=== PATIENT | male | born 1960 | race Caucasian/White ===

== ENCOUNTER 2022-12-08 09:34 | Outpatient (OUT) | payer OTHER, SELFPAY ==
--- NOTE | 2022-12-08 09:44 | PM.CN ---
Consult Note: HPI Data of Consult Patient: known to practice within the last 3 years Consult date: 12/08/22 Requesting Physician: LAURA LEVIN NP Primary Care Provider: MALGORZATA LITTLEJOHN Consult Narrative Narrative: Patient is here for f/u of low back pain. He had lumbar RFA done 10/25/22 L4/5, L5/S1. He recieved 90% relief of pain with increased fx continued through today . No new sensorimotor sx or bowel or bladder issues. Medication regimen is controlling pain and assisting patient with ability to perform ADLs. LESLIE-26. He does have a flare up of thoracic back pain radiating up to the neck. No radiculopathy. No new ijury. We discussed medrol dose pack for him and he is in agreement. cc:: CC: LAURA LEVIN NP Review of Systems ROS Status of ROS 10 or more systems reviewed and unremarkable except as noted in history and below Musculoskeletal Reports: back pain Exam Constitutional Documenting provider has reviewed patient's vital signs: yes Common normals: no apparent distress, average body habitus, oriented x3, no limitations, healthy appearing, alert and well nourished General appearance: cooperative, comfortable and well developed Orientation/consciousness: Yes awake, Yes oriented to person, Yes oriented to place and Yes oriented to time HENMT Common normals: normocephalic, external ears normal and moist oral mucous membranes Respiratory Common normals: normal respiratory effort, no retractions and no use of accessory muscles Effort & inspection: able to speak in complete sentences and symmetric chest movement Back & Pelvis Thoracic spine/upper back: normal to inspection, thoracic ROM normal, pain with ROM, paraspinal muscle tenderness and paraspinal muscle spasm Lumbar spine/lower back: normal to inspection, ROM limited, pain with ROM, paraspinal muscle tenderness and paraspinal muscle spasm Other: positive facet loading bilat. muscle strength 5/5 bilat with intact sensation Extremity Common normals: normal to inspection, full ROM, normal capillary refill and no pedal edema Assessment and Plan Assessment and Plan (1) Lumbar spondylosis: (2) Muscle spasm: (3) Acute thoracic myofascial strain: Plan medrol dose pack tramadol refill f/u 3 months
== END 2022-12-08 09:35 | disposition home or self-care (01) ==
PROVIDERS: PCP Family Medicine; Visit Provider Nurse Practitioner
DX: M47.816 Spondylosis without myelopathy or radiculopathy, lumbar region (principal); M62.838 Other muscle spasm; S29.012A Strain of muscle and tendon of back wall of thorax, initial encounter
CPT/HCPCS: G0463

== ENCOUNTER 2023-02-08 09:00 | Outpatient (OUT) | payer OTHER, SELFPAY ==
--- NOTE | 2023-02-08 09:06 | PM.CN ---
Consult Note: HPI Data of Consult Patient: known to practice within the last 3 years Requesting Physician: Nikki Hadley NP Primary Care Provider: MALGORZATA LITTLEJOHN Consult Narrative Reason for consult: new onset, 6 weeks, neuritis and increase in pain Narrative: Patient presents with new onset neuritis and pain in the throracic, lumbar, and upper part of lower extremities without inciting incident starting 6 weeks ago and worsening in symptom severity. No recent infections, rashes, medication changes, or travel. Patient denies fatigue, headaches, fevers, chills. Positive for diffuse joint pain affecting shoulders, elbows, knees which is new and worsening in severity, patient reports his knees have been giving out on him. No loss of bowel or bladder. No known tick or bug exposure. no family history of connective tissue disorders. cc:: CC: Nikki Hadley NP Review of Systems ROS Status of ROS 10 or more systems reviewed and unremarkable except as noted in history and below Musculoskeletal Reports: back pain, joint pain and other Neurological Reports: other (new onset numbness to low abdomen up to diaphragm and pelvis to knees. ) Meds Home Medications and Allergies Home Medications Medication Instructions Recorded Confirmed Type amlodipine 10 mg tablet 10 mg PO DAILY 12/08/22 12/08/22 History baclofen 10 mg tablet 10 mg PO TID 12/08/22 12/08/22 History diclofenac sodium 75 mg 75 mg PO BID 12/08/22 12/08/22 History tablet,delayed release gabapentin 100 mg capsule 100 mg PO TID 12/08/22 12/08/22 History lisinopril 20 1 tab PO DAILY 12/08/22 12/08/22 History mg-hydrochlorothiazide 12.5 mg tablet lovastatin 10 mg tablet 10 mg PO DAILY 12/08/22 12/08/22 History metformin 1,000 mg tablet 1,000 mg PO DAILY 12/08/22 12/08/22 History naproxen 500 mg tablet 500 mg PO DAILY PRN pain 12/08/22 12/08/22 History potassium chloride 10 mEq 10 meq PO DAILY 12/08/22 12/08/22 History tablet,extended release (K-Tab) tramadol 50 mg tablet 50 mg PO TID 12/08/22 12/08/22 History Allergies Allergy/AdvReac Type Severity Reaction Status Date / Time No Known Drug Allergies Allergy Verified 12/08/22 10:30 Exam Constitutional Documenting provider has reviewed patient's vital signs: yes Common normals: no apparent distress, oriented x3, healthy appearing, alert and well nourished General appearance: cooperative Nutritional appearance: overweight HENMT Common normals: normocephalic, hearing grossly normal bilaterally and moist oral mucous membranes Head and scalp: normocephalic Eye Common normals: PERRL Pupil: PERRL Neck & C-Spine Common normals: full ROM General: normal visual inspection Lymph Lymphatic: no lymphadenopathy noted Chest Common normals: inspection of chest normal Respiratory Common normals: normal respiratory effort, no retractions and no use of accessory muscles Back & Pelvis Common normals: no CVA tenderness Thoracic spine/upper back: normal to inspection and thoracic ROM normal Lumbar spine/lower back: normal to inspection, lumbar ROM normal and straight leg raise negative bilaterally Pelvis: buttocks normal Sacroiliac joints: SI joints normal Other: please see paper chart for diagram of numbness and pain as reported by patient Extremity Common normals: normal to inspection, full ROM and no joint enlargement Extremity image (front): 1. numbness anteriorly and posteriorly 2. numbness anteriorly and posteriorly 3. pain Neuro Common normals: oriented x3, CN's II-XII intact bilaterally, moves all extremities, no focal motor deficits, no sensory deficits noted and deep tendon reflexes 2+ bilaterally Sensorium/orientation: alert Speech: speech normal Gait (neuro): normal gait Motor exam: strength 5/5 throughout and no movement abnormalities noted Other: new onset, 6 weeks ago, of neuritis and nerve pain to low abdomen radiating up to diaphragm and pelvis down to bilateral knees. continued chronic low back pain increasing in intensity since the development of neuritis. Psych Common normals: mental status grossly normal, thought process normal, cooperative, affect normal, speech normal and activity/motor behavior normal Speech: normal speech Thought process: normal thought process Assessment and Plan Assessment and Plan (1) Joint pain: (2) Neuritis: (3) Thoracic and lumbosacral neuritis: (4) Muscle spasm: (5) Lumbar spondylosis: (6) Chronic, continuous use of opioids: Plan Patient presents with new onset neuritis and pain in the throracic, lumbar, and upper part of lower extremities without inciting incident starting 6 weeks ago and worsening in symptom severity. No recent infections, rashes, medication changes, or travel. Patient denies fevers, chills. Positive for diffuse joint pain affecting shoulders, elbows, knees which is new and worsening in severity, patient reports his knees have been giving out on him. No loss of bowel or bladder. No known tick or bug exposure. no family history of connective tissue disorders. Will update MRI of thoracic and lumbar spine to evaluate nerve pain and weakness, xrays updated in september. Will order CBC, CRP, and workup for tick exposure/lyme disease. Continue gabapentin 300mg daily continue baclofen 10mg hs continue tramadol 50mg TID MRI of thoracic and lumbar spine f/u after labs and imaging obtained
== END 2023-02-08 09:01 | disposition home or self-care (01) ==
LOC: PM 09:01
PROVIDERS: PCP Family Medicine; Visit Provider Nurse Practitioner
DX: M54.14 Radiculopathy, thoracic region (principal); M54.16 Radiculopathy, lumbar region; M25.50 Pain in unspecified joint; M62.838 Other muscle spasm; M47.816 Spondylosis without myelopathy or radiculopathy, lumbar region; Z79.899 Other long term (current) drug therapy; M54.17 Radiculopathy, lumbosacral region
CPT/HCPCS: 36415; 85025; 86140; 86618; G0463

== ENCOUNTER 2023-02-08 09:59 | Outpatient (OUT) | payer OTHER, MEDICARE, SELFPAY ==
[2023-02-08 10:58] LABS: Basophils Absolute Auto 0.1 10^3/uL (0.0-0.1); Eosinophils Absolute Auto 0.2 10^3/uL (0.0-0.7); Eosinophils Percent Auto 2.9 % (0.9-7.0); Hematocrit 46.9 % (42.0-54.0); Hemoglobin 16.1 g/dL (14.0-18.0); Immature Granulocytes Abs Auto 0.02 10^3/uL (0.00-0.03); Immature Granulocytes Pct Auto 0.4 % (0.0-0.5); Lymphocytes Absolute Auto 2.2 10^3/uL (1.2-3.8); Lymphocytes Percent Auto 40.4 % (20.5-60.0); Mean Corpuscular HGB Conc 34.3 g/dL (29.9-35.2); Mean Corpuscular Hemoglobin 31.4 pg (25.9-34.0); Mean Corpuscular Volume 91.6 fL (80.0-94.0); Mean Platelet Volume 11.3 fL (9.5-13.5); Monocytes Absolute Auto 0.4 10^3/uL (0.3-0.8); Monocytes Percent Auto 7.9 % (1.7-12.0); Neutrophils Absolute Auto 2.5 10^3/uL (1.4-6.5); Neutrophils Percent Auto 46.4 % (43.0-75.0); Platelet Count 238 10^3/uL (150-450); Red Blood Count 5.12 10^6/uL (4.70-6.10); Red Cell Distribution Width 12.3 % (11.0-15.0); White Blood Count 5.5 10^3/uL (4.0-11.0)
[2023-02-08 12:37] LABS: C Reactive Protein <0.2 mg/dL (<=1.0)
[2023-02-09 10:09] LABS: Lyme Total Antibody CIA Negative (Negative)
== END 2023-02-08 10:00 | disposition home or self-care (01) ==
PROVIDERS: PCP Family Medicine; Visit Provider Nurse Practitioner
DX: M54.14 Radiculopathy, thoracic region (principal); M54.16 Radiculopathy, lumbar region
CPT/HCPCS: 36415; 85025; 86140

== ENCOUNTER 2023-03-07 08:17 | Outpatient (OUT) | payer OTHER, SELFPAY ==
--- NOTE | 2023-03-07 08:28 | MR_ITS ---
[place] [id number] Patient Name: KEDAR OCASIO MRN: [id number] date: 1960 Sex: M Assigned Patient Location: MRI Current Patient Location: MRI Accession/Order Number: [id number] Exam Date: 03/07/2023 08:38 Report Date: 03/07/2023 15:31 At the request of: ZBIGNIEW BEGUM Procedure: MR lumbar spine wo con TITLE: MR lumbar spine wo con COMPARISON: 2019 lumbar spine MRI CLINICAL HISTORY: Lumbar Neuritis. Mid to lower back pain radiating to the lower extremity. Weakness TECHNIQUE: Sagittal T1, sagittal T2 FSE, sagittal STIR, and axial T2 FSE. FINDINGS: Alignment is normal. There is no listhesis nor vertebral body height loss. The conus medullaris terminates at L1-2 and appears normal. There is mild diffuse narrowing of the central canal suggesting developmental central stenosis. Type II Modic endplate marrow changes L2-3 and L4-5. Multilevel disc space narrowing and disc desiccation The visualized adjacent soft tissues appear unremarkable.. T11-T12: Mild disc bulges Schmorl's nodes. No significant stenosis. T12-L1: Mild disc bulge. No significant stenosis. L1-L2:Mild disc bulge. No significant stenosis. L2-3: Diffuse disc bulge with foraminal extension. Mild central canal and foraminal stenoses L3-4: Diffuse disc bulge. Left paracentral and foraminal disc protrusion. There is 7 mm extruded disc fragment in the left lateral recess. Reference sagittal image 8 and axial image 22 series 8001 moderate to severe central canal and left lateral recess stenosis. Severe left-sided foraminal narrowing Bilateral facet hypertrophy L4-5: Diffuse disc bulge with lateral osteophyte and disc formation. Bilateral facet hypertrophy. Moderate to severe central canal and moderate right greater than left foraminal narrowing L5-S1: Mild disc bulge and facet hypertrophy. Mild to moderate foraminal narrowing MR/MR lumbar spine wo con IMPRESSION: MODERATE MULTILEVEL DEGENERATIVE CHANGES OF THE LUMBAR SPINE. INTERVAL PROGRESSION FROM 2019 MILD DIFFUSE NARROWING OF CENTRAL CANAL SUGGESTING UNDERLYING DEVELOPMENTAL CENTRAL STENOSIS. MULTILEVEL DISC DESICCATION, DISC SPACE NARROWING, AND DISC BULGES. L3-4: LEFT PARACENTRAL AND FORAMINAL DISC PROTRUSIONS. EXTRUDED DISC FRAGMENT EXTENDING IN THE LEFT LATERAL RECESS. MODERATE TO SEVERE MULTIFACTORIAL CENTRAL STENOSIS L4-5 Electronically authenticated by: LOYDA FELIZ Date: 03/07/2023 15:31
--- NOTE | 2023-03-07 08:28 | MR_ITS ---
[facility] [place] [id number] Patient Name: KEDAR OCASIO MRN: [id number] date: 1960 Sex: M Assigned Patient Location: MRI Current Patient Location: MRI Accession/Order Number: [id number] Exam Date: 03/07/2023 08:39 Report Date: 03/07/2023 15:38 At the request of: ZBIGNIEW BEGUM Procedure: MR thoracic spine wo con MRI THORACIC SPINE WITHOUT CONTRAST, 03/07/2023. HISTORY: Back pain. Thoracic neuritis. Weakness. COMPARISON: None. TECHNIQUE: Multiplanar, multisequence MRI imaging of the thoracic spine without contrast. FINDINGS: Alignment is normal. No acute compression fracture of the thoracic spine. Signal in the bone marrow spaces is appropriate. No bone marrow edema. No suspicious osseous lesions. The C7-T1 level is partially included on the [id number]. There is a large disc extrusion migrating above the level of the disc space. The disc extrusion measures 8 mm in AP dimension and 12 mm in craniocaudal dimension. This results in severe spinal canal stenosis at the C7 level with severe compression of the spinal cord. Multilevel degenerative disc disease throughout the thoracic spine. Degenerative disc disease is most severe at T6-T7 with severe disc space narrowing. There are small central protrusions at T5-T6 and T6-T7. There is facet hypertrophy and ligamentum flavum thickening at T7-T8. There is disc bulge at T9-T10 and T11-T12. These findings result in mild spinal stenosis at these levels. There is severe facet arthropathy on the right at T9-T10 with mild right foraminal narrowing as a result of facet hypertrophy. No spinal cord compression in the thoracic spinal canal. No paraspinal soft tissue swelling. No paraspinal mass. MR/MR thoracic spine wo con IMPRESSION: 1. The C7-T1 level is partially included on the [id number]. There is a large central disc extrusion migrating above the level of the disc space. The disc extrusion results in severe spinal canal stenosis with severe compression of the spinal cord at the C7 level. The spinal canal measures only approximately 2 mm in AP dimension at this level. 2. Multilevel degenerative disc disease throughout the thoracic spine. There are a few small disc protrusions and disc bulge as well as facet hypertrophy resulting in mild spinal stenosis at a few thoracic levels. No compression of the thoracic spinal cord. 3. Severe facet arthropathy on the right at T9-T10 with mild right foraminal narrowing. Electronically authenticated by: MALGORZATA CHAN Date: 03/07/2023 15:38
== END 2023-03-07 08:18 | disposition home or self-care (01) ==
LOC: MRI 08:18
PROVIDERS: PCP Family Medicine; Visit Provider Nurse Practitioner
DX: M54.14 Radiculopathy, thoracic region (principal); M54.16 Radiculopathy, lumbar region
CPT/HCPCS: 72146; 72148

== ENCOUNTER 2023-03-09 09:00 | Outpatient (OUT) | payer OTHER, SELFPAY ==
--- NOTE | 2023-03-09 09:19 | P.CN_ITS ---
Consult Note: HPI Data of Consult Patient: known to practice within the last 3 years Requesting Physician: Nikki Hadley NP Primary Care Provider: MALGORZATA LITTLEJOHN Consult Narrative Reason for consult: MRI review Narrative: Beau Lozano a pleasant 63 year old male presents for evaluation of chronic low back pain with radiculopathy and lumbar neuritis. MRI recently completed which revealed moderate multilevel degenerative changes as well as mild diffuse narrowing of central canal and stenosis at L3-4, moderate to severe central canal stenosis at L4-5. Patient has 2/10 pain today, worst at 10/10. Pain increased with standing and walking, stairs, bending, activity, ADLs, and sleep. Pain improved with sitting. Patient continues to notice decrease in functional ability as a result of his pain. Pain is mild to moderately controlled with tramadol, gabapentin, and baclofen. He has not tried topical creams or heat/ice. cc:: CC: Nikki Hadley NP Review of Systems ROS Status of ROS 10 or more systems reviewed and unremarkable except as noted in history and below Musculoskeletal Reports: back pain, neck pain and joint pain Meds Home Medications and Allergies Home Medications Medication Instructions Recorded Confirmed Type amlodipine 10 mg tablet 10 mg PO DAILY 12/08/22 12/08/22 History baclofen 10 mg tablet 10 mg PO TID 12/08/22 12/08/22 History diclofenac sodium 75 mg 75 mg PO BID 12/08/22 12/08/22 History tablet,delayed release gabapentin 100 mg capsule 100 mg PO TID 12/08/22 12/08/22 History lisinopril 20 1 tab PO DAILY 12/08/22 12/08/22 History mg-hydrochlorothiazide 12.5 mg tablet lovastatin 10 mg tablet 10 mg PO DAILY 12/08/22 12/08/22 History metformin 1,000 mg tablet 1,000 mg PO DAILY 12/08/22 12/08/22 History potassium chloride 10 mEq 10 meq PO DAILY 12/08/22 12/08/22 History tablet,extended release (K-Tab) tramadol 50 mg tablet 50 mg PO TID 12/08/22 12/08/22 History baclofen 10 mg tablet 10 mg PO .HS #30 tabs 03/09/23 Rx diclofenac sodium 75 mg 75 mg PO BID PRN pain #60 tabs 03/09/23 Rx tablet,delayed release tramadol 50 mg tablet 50 mg PO TID PRN pain #90 tabs 03/09/23 Rx Allergies Allergy/AdvReac Type Severity Reaction Status Date / Time No Known Drug Allergies Allergy Verified 12/08/22 10:30 Exam Constitutional Documenting provider has reviewed patient's vital signs: yes Common normals: no apparent distress, oriented x3, healthy appearing, alert and well nourished General appearance: cooperative HENMT Common normals: normocephalic, hearing grossly normal bilaterally and moist oral mucous membranes Head and scalp: normocephalic Eye Common normals: PERRL Pupil: PERRL Neck & C-Spine Common normals: full ROM General: normal visual inspection Chest Common normals: inspection of chest normal Respiratory Common normals: normal respiratory effort, no retractions and no use of accessory muscles Back & Pelvis Thoracic spine/upper back: ROM limited and pain with ROM Lumbar spine/lower back: ROM limited, pain with ROM and straight leg raise negative bilaterally Other: diffuse tightness to low back and muscle spasming. Trigger points to lumbar spine identified. radicular pain to bilateral lower extremities. Back image (male): 1. TPI 2. TPI 3. TPI Extremity Common normals: normal to inspection and full ROM Neuro Common normals: oriented x3, CN's II-XII intact bilaterally, moves all extremities, no focal motor deficits, no sensory deficits noted and deep tendon reflexes 2+ bilaterally Sensorium/orientation: alert Gait (neuro): antalgic Motor exam: strength 5/5 throughout (4/5 BLE at times) and no movement abnormalities noted Other: multilevel thoracic and lumbar neuritis/nerve pain to low abdomen radiating up to diaphragm and pelvis down to bilateral knees. continued chronic low back pain increasing in intensity since the development of neuritis. Psych Common normals: mental status grossly normal, thought process normal, cooperative, affect normal, speech normal and activity/motor behavior normal Speech: normal speech Thought process: normal thought process Results Additional Findings Additional findings: MRI reviewed with patient I have reviewed the imaging of the MRI and no red flags were identified.? The imaging reveals radiographic findings consistent with lumbar radiculopathy. The Oswestry Disability Index was completed, and the patient scored a 60%, with severe pain, pain with ADLs, cannot lift or carry anything, pain prevents him from walking more than 100 yards, pain prevents him from sitting more than 30 minutes, pain prevents him from standing more than 10 minutes, pain is interf ering with sleep, social life, sex life, and travel. We discussed the risks and benefits of the procedure with the patient, and we are NOT planning on using sedation as outlined in the guidelines from Medicare unless there is a documented reason that sedation would be strongly recommended.?? ?The procedure will be completed with fluoroscopic guidance.? Assessment and Plan Assessment and Plan (1) Neuritis: (2) Thoracic and lumbosacral neuritis: (3) Myofascial pain syndrome of lumbar spine: Assessment and Plan: consent obtained. procedure and risks vs benefits reviewed with patient. Trigger point injections x3, 2 at lower left back and one at right lower back see exam a beatrice. injection was performed after informed consent obtained, patient identified by name and birthday and location confirmed. Hands washed and gloves applied. Site cleansed with alcohol wipes for 1 minute and air dried. Sites CDI and bandaids applied. moderate relief to lumbar myofascial pain immediately following TPIs (4) Chronic, continuous use of opioids: (5) Muscle spasm: Plan no fevers chills, continue to monitor. previous blood work was unremarkable. Was concerned with previous joint pain, has dissipated continue diclofenac 75mg BID continue tramadol 50mg TID PRN moderate to severe pain continue baclofen 10mg PRN utilize heat and ice for myofascial pain increase gabapentin to 300mg BID plan for bilateral L3-4 TFESI under fluoroscopy followed by bilateral L4-5 TFESI under fluoroscopy based on patients imaging, physical exam, and functional ability unable to tolerate PT it is crucial to perform these procedures to decrease pain and increase functional ability f/u after injections
== END 2023-03-09 09:01 | disposition home or self-care (01) ==
LOC: PM 09:00
PROVIDERS: PCP Family Medicine; Visit Provider Nurse Practitioner
DX: M54.14 Radiculopathy, thoracic region (principal); M54.16 Radiculopathy, lumbar region; M79.18 Myalgia, other site; Z79.899 Other long term (current) drug therapy; M62.838 Other muscle spasm
CPT/HCPCS: 20552

== ENCOUNTER 2023-03-20 09:23 | Day surgery (SDC) | payer OTHER, SELFPAY ==
[2023-03-20 09:58] VITALS: BP 151/85; PULSE 71; RESP 16; TEMP 36.9; O2SAT 97
[2023-03-20 10:34] LABS: Glucometer 231 mg/dL (74-106)
[2023-03-20 10:53] VITALS: BP 134/72; PULSE 78; RESP 18; O2SAT 97
[2023-03-20] MEDS: BUPIVACAINE HCL 0.25% PF 25 MG/10 ML VIAL 4 ML INJ (10:55)
[2023-03-20] MEDS: IOHEXOL 240 MG/ML - 10 ML VIAL INJ (10:56)
[2023-03-20] MEDS: LIDOCAINE HCL 2% PF 100 MG/5 ML VIAL 3 ML INJ (10:56)
[2023-03-20] MEDS: TRIAMCINOLONE ACETONIDE 40 MG/ML VIAL 80 MG INJ (10:56)
--- NOTE | 2023-03-20 10:57 | W.PM.PROCNOT ---
Date of procedure: 03/20/23 Pre-op diagnosis: Lumbar stenosis with neurogenic claudication Post-op diagnosis: same as pre-op Procedure: Procedure: Bilateral L3-4 transforaminal epidural steroid injection Medication: Bupivacaine 0.25% 2cc, kenalog 80mg The patient was seen and examined in the preoperative holding area.? Informed consent was obtained and placed on the chart.? Patient was brought to the medical procedure unit and placed in the prone position where a timeout was completed verifying the correct patient, procedure site, position, and planned special equipment using sterile aseptic technique.? Under direct fluoroscopic visualization a 25-gauge Quincke tipped spinal needle was advanced at level left L3-4 to the designated neural foramen where contrast dye was injected to show adequate spread.? There was no evidence of vascular or adverse uptake.? Epidural spread was appreciated.? The above-mentioned injectate was then placed in a 1.5 mL aliquot preceded by negative aspiration.? The needle was removed. The same procedure, at the same level, was completed on the opposite side. ? Patient was taken to the postprocedural recovery area and monitored for an appropriate length of time before found suitable for discharge in the accompaniment of a responsible adult. Anesthesia: Local Surgeon: Macey Monterroso Pathology: none sent Condition: stable Disposition: no change
[2023-03-20 10:58] VITALS: BP 139/72; PULSE 84; RESP 16; O2SAT 98
== END 2023-03-20 11:01 | disposition home or self-care (01) ==
PROVIDERS: PCP Family Medicine; Visit Provider Anesthesiology
DX: M48.062 Spinal stenosis, lumbar region with neurogenic claudication (principal); Z79.84 Long term (current) use of oral hypoglycemic drugs
CPT/HCPCS: 36415; 36416; 64483; 82948; Q9966

== ENCOUNTER 2023-04-03 08:12 | Day surgery (SDC) | payer OTHER, SELFPAY ==
[2023-04-03 08:18] VITALS: BP 140/83; PULSE 98; RESP 16; TEMP 36.2; O2SAT 95
[2023-04-03 08:25] LABS: Glucometer 174 mg/dL (74-106)
[2023-04-03] MEDS: BUPIVACAINE HCL 0.25% PF 25 MG/10 ML VIAL 2 ML INJ (09:09)
[2023-04-03] MEDS: TRIAMCINOLONE ACETONIDE 40 MG/ML VIAL 80 MG INJ (09:10)
[2023-04-03] MEDS: IOHEXOL 240 MG/ML - 10 ML VIAL INJ (09:10)
[2023-04-03] MEDS: LIDOCAINE HCL 2% PF 100 MG/5 ML VIAL 3 ML INJ (09:10)
[2023-04-03 09:11] VITALS: BP 119/76; BP 128/66; PULSE 90; PULSE 91; RESP 18; O2SAT 96
--- NOTE | 2023-04-03 09:13 | W.PM.PROCNOT ---
Date of procedure: 04/03/23 Pre-op diagnosis: Lumbar stenosis with neurogenic claudication Post-op diagnosis: same as pre-op Procedure: Procedure: Bilateral L4-5 transforaminal epidural steroid injection Medications: Bupivacaine 0.25% 2cc, kenalog 80mg The patient was seen and examined in the preoperative holding area.? Informed consent was obtained and placed on the chart.? Patient was brought to the medical procedure unit and placed in the prone position where a timeout was completed verifying the correct patient, procedure site, position, and planned special equipment using sterile aseptic technique.? Under direct fluoroscopic visualization a 25-gauge Quincke tipped spinal needle was advanced at level left L4-5 to the designated neural foramen where contrast dye was injected to show adequate spread.? There was no evidence of vascular or adverse uptake.? Epidural spread was appreciated.? The above-mentioned injectate was then placed in a 1.5 mL aliquot preceded by negative aspiration.? The needle was removed. The same procedure, at the same level, was completed on the opposite side. ? Patient was taken to the postprocedural recovery area and monitored for an appropriate length of time before found suitable for discharge in the accompaniment of a responsible adult. Anesthesia: Local Surgeon: Macey Monterroso Pathology: none sent Condition: stable Disposition: no change
== END 2023-04-03 09:16 | disposition home or self-care (01) ==
PROVIDERS: PCP Family Medicine; Visit Provider Anesthesiology
DX: M48.062 Spinal stenosis, lumbar region with neurogenic claudication (principal)
CPT/HCPCS: 36415; 36416; 64483; 82948; Q9966

== ENCOUNTER 2023-04-26 08:05 | Outpatient (OUT) | payer OTHER, SELFPAY ==
--- NOTE | 2023-04-26 08:52 | P.CN_ITS ---
Consult Note: HPI Data of Consult Patient: known to practice within the last 3 years Requesting Physician: Nikki Hadley NP Primary Care Provider: MALGORZATA LITTLEJOHN Consult Narrative Reason for consult: f/u Narrative: Beau Lozano a pleasant 63 year old male presents for evaluation and management of chronic low back pain and radiculopathy. Today rating pain 4/10 in upper back and low back. Reporting only 25% relief from recent TFESIs. Patient has a NS consult this month with a physician in [place] to discuss pain unresponsive to injection therapy and medication therapy. Patient continues to have numbness, tingling, and weakness in legs. cc:: CC: Nikki Hadley NP Review of Systems ROS Status of ROS 10 or more systems reviewed and unremarkable except as noted in history and below Musculoskeletal Reports: back pain PFSH PFSH Medical History Diabetes ?E11.9 - Type 2 diabetes mellitus without complications (ICD-10) High cholesterol ?E78.00 - Pure hypercholesterolemia, unspecified (ICD-10) HTN (hypertension) ?I10 - Essential (primary) hypertension (ICD-10) Osteoarthritis ?M19.90 - Unspecified osteoarthritis, unspecified site (ICD-10) Surgical History History of arthroscopy of knee ?Z98.890 - Other specified postprocedural states (ICD-10) History of hernia repair ?Z98.890 - Other specified postprocedural states (ICD-10) ?Z87.19 - Personal history of other diseases of the digestive system (ICD-10) History of knee replacement ?Z96.659 - Presence of unspecified artificial knee joint (ICD-10) Meds Home Medications and Allergies Home Medications Medication Instructions Recorded Confirmed Type amlodipine 10 mg tablet 10 mg PO DAILY 12/08/22 04/03/23 History baclofen 10 mg tablet 10 mg PO TID 12/08/22 04/03/23 History diclofenac sodium 75 mg 75 mg PO BID 12/08/22 04/03/23 History tablet,delayed release gabapentin 100 mg capsule 100 mg PO TID 12/08/22 04/03/23 History lisinopril 20 1 tab PO DAILY 12/08/22 04/03/23 History mg-hydrochlorothiazide 12.5 mg tablet lovastatin 10 mg tablet 10 mg PO DAILY 12/08/22 04/03/23 History metformin 1,000 mg tablet 1,000 mg PO DAILY 12/08/22 04/03/23 History potassium chloride 10 mEq 10 meq PO DAILY 12/08/22 04/03/23 History tablet,extended release (K-Tab) tramadol 50 mg tablet 50 mg PO TID 12/08/22 04/03/23 History baclofen 10 mg tablet 10 mg PO .HS #30 tabs 03/09/23 03/20/23 Rx diclofenac sodium 75 mg 75 mg PO BID PRN pain #60 tabs 03/09/23 03/20/23 Rx tablet,delayed release tramadol 50 mg tablet 50 mg PO TID PRN pain #90 tabs 03/09/23 03/20/23 Rx tramadol 50 mg tablet 50 mg PO TID PRN pain #90 tabs 04/12/23 Rx Allergies Allergy/AdvReac Type Severity Reaction Status Date / Time No Known Drug Allergies Allergy Verified 04/03/23 08:24 Exam Constitutional Documenting provider has reviewed patient's vital signs: yes Common normals: no apparent distress, oriented x3, healthy appearing, alert and well nourished General appearance: cooperative [facility] Common normals: normocephalic, hearing grossly normal bilaterally and moist oral mucous membranes Head and scalp: normocephalic Eye Common normals: PERRL Pupil: PERRL Neck & C-Spine Common normals: full ROM General: normal visual inspection Chest Common normals: inspection of chest normal Respiratory Common normals: normal respiratory effort, no retractions and no use of accessory muscles Back & Pelvis Thoracic spine/upper back: ROM limited and pain with ROM Lumbar spine/lower back: ROM limited, pain with ROM and straight leg raise positive left Sacroiliac joints: SI joints normal Other: strength 4/5 in BLE Extremity Common normals: normal to inspection and full ROM Neuro Common normals: oriented x3, CN's II-XII intact bilaterally, moves all extremities, no focal motor deficits, no sensory deficits noted and deep tendon reflexes 2+ bilaterally Sensorium/orientation: alert Gait (neuro): antalgic Motor exam: no movement abnormalities noted and strength abnormal Psych Common normals: mental status grossly normal, thought process normal, cooperative, affect normal, speech normal and activity/motor behavior normal Speech: normal speech Thought process: normal thought process Results Additional Findings Additional findings: LESLIE 52% Assessment and Plan Assessment and Plan (1) Chronic, continuous use of opioids: (2) Myofascial pain syndrome of lumbar spine: (3) Lumbar stenosis with neurogenic claudication: (4) Neuropathy: Plan increase gabapentin to 300mg TID stop baclofen, start skalxin 500mg 1-2 tabs BID PRN muscle spasms continue tramadol 50mg TID PRN continue diclofenac 75mg BID PRN continue HEP as tolerated f/u with neurosurgery in [place] as scheduled, unsure of providers name f/u 6 weeks
== END 2023-04-26 08:06 | disposition home or self-care (01) ==
LOC: PM 08:05
PROVIDERS: PCP Family Medicine; Visit Provider Nurse Practitioner
DX: M48.062 Spinal stenosis, lumbar region with neurogenic claudication (principal); Z79.891 Long term (current) use of opiate analgesic; G62.9 Polyneuropathy, unspecified; M79.18 Myalgia, other site
CPT/HCPCS: G0463

== ENCOUNTER 2023-06-15 13:13 | Outpatient (OUT) | payer OTHER, SELFPAY ==
--- NOTE | 2023-06-15 14:13 | P.CN_ITS ---
Consult Note: HPI Data of Consult Patient: known to practice within the last 3 years Requesting Physician: Nikki Hadley NP Primary Care Provider: MALGORZATA LITTLEJOHN Consult Narrative Reason for consult: f/u Narrative: Beau Lozano a pleasant 63 year old male presents for evaluation and management of chronic low back pain and radiculopathy. Today rating pain 5/10 in low back and bilateral buttocks/legs, also reporting cervical/thoracic pain. Patient following with neurosurgery who is planning C2-T2 decompression with posterior fusion. Patient is now utilizing a walker to assist with ambulation. Finding benefit from tramadol 50-100mg TID PRN and gabapentin 600mg QID. cc:: CC: Nikki Hadley NP Review of Systems ROS Status of ROS 10 or more systems reviewed and unremark able except as noted in history and below Musculoskeletal Reports: back pain and neck pain PFSH PFSH Medical History Osteoarthritis ?M19.90 - Unspecified osteoarthritis, unspecified site (ICD-10) Diabetes ?E11.9 - Type 2 diabetes mellitus without complications (ICD-10) HTN (hypertension) ?I10 - Essential (primary) hypertension (ICD-10) High cholesterol ?E78.00 - Pure hypercholesterolemia, unspecified (ICD-10) Surgical History History of arthroscopy of knee ?Z98.890 - Other specified postprocedural states (ICD-10) History of knee replacement ?Z96.659 - Presence of unspecified artificial knee joint (ICD-10) History of hernia repair ?Z98.890 - Other specified postprocedural states (ICD-10) ?Z87.19 - Personal history of other diseases of the digestive system (ICD-10) Meds Home Medications and Allergies Home Medications Medication Instructions Recorded Confirmed Type amlodipine 10 mg tablet 10 mg PO DAILY 12/08/22 04/03/23 History diclofenac sodium 75 mg 75 mg PO BID 12/08/22 04/03/23 History tablet,delayed release gabapentin 100 mg capsule 300 mg PO TID 12/08/22 04/26/23 History lisinopril 20 1 tab PO DAILY 12/08/22 04/03/23 History mg-hydrochlorothiazide 12.5 mg tablet lovastatin 10 mg tablet 10 mg PO DAILY 12/08/22 04/03/23 History metformin 1,000 mg tablet 1,000 mg PO DAILY 12/08/22 04/03/23 History potassium chloride 10 mEq 10 meq PO DAILY 12/08/22 04/03/23 History tablet,extended release (K-Tab) tramadol 50 mg tablet 50 mg PO TID 12/08/22 04/03/23 History diclofenac sodium 75 mg 75 mg PO BID PRN pain #60 tabs 03/09/23 03/20/23 Rx tablet,delayed release tramadol 50 mg tablet 50 mg PO TID PRN pain #90 tabs 03/09/23 03/20/23 Rx tramadol 50 mg tablet 50 mg PO TID PRN pain #90 tabs 04/12/23 Rx methocarbamol 500 mg tablet 500 mg PO TID 04/26/23 04/26/23 History tramadol 50 mg tablet 50 mg PO TID PRN pain #90 tabs 05/11/23 Rx diclofenac sodium 75 mg 75 mg PO BID #60 tabs 06/07/23 Rx tablet,delayed release tramadol 50 mg tablet 50 mg PO TID PRN pain #180 tabs 06/07/23 Rx Allergies Allergy/AdvReac Type Severity Reaction Status Date / Time No Known Drug Allergies Allergy Verified 04/03/23 08:24 Exam Constitutional Documenting provider has reviewed patient's vital signs: yes Common normals: no apparent distress, oriented x3, healthy appearing, alert and well nourished General appearance: cooperative [facility] Common normals: normocephalic, hearing grossly normal bilaterally and moist oral mucous membranes Head and scalp: normocephalic Eye Common normals: PERRL Pupil: PERRL Neck & C-Spine Common normals: full ROM General: normal visual inspection Chest Common normals: inspection of chest normal Respiratory Common normals: normal respiratory effort, no retractions and no use of acc essory muscles Back & Pelvis Thoracic spine/upper back: ROM limited and pain with ROM Lumbar spine/lower back: ROM limited, pain with ROM, straight leg raise positive right and straight leg raise positive left Sacroiliac joints: SI joints normal Other: strength 4/5 in BLE Extremity Common normals: normal to inspection and full ROM Neuro Common normals: oriented x3, CN's II-XII intact bilaterally, moves all extremities, no focal motor deficits, no sensory deficits noted and deep tendon reflexes 2+ bilaterally Sensorium/orientation: alert Gait (neuro): antalgic Motor exam: no movement abnormalities noted and strength abnormal (4/5 BLE) Psych Common normals: mental status grossly normal, thought process normal, cooperative, affect normal, speech normal and activity/motor behavior normal Speech: normal speech Thought process: normal thought process Assessment and Plan Assessment and Plan (1) Lumbar stenosis with neurogenic claudication: (2) Myofascial pain syndrome of lumbar spine: (3) Chronic, continuous use of opioids: (4) Muscle spasm: (5) Lumbar spondylosis: (6) Cervical spinal stenosis: Plan tramadol 50-100mg TID PRN moderate to severe pain gabapentin 600mg QID skelaxin 800mg TID PRN discussed NS managing post op pain medications, patient and verbalized understanding continue diclofenac 75mg BID PRN will hold prior to and post op per surgeons recommendation f/u 3 months, sooner if needed
== END 2023-06-15 13:14 | disposition home or self-care (01) ==
LOC: PM 13:25
PROVIDERS: PCP Family Medicine; Visit Provider Nurse Practitioner
DX: M48.062 Spinal stenosis, lumbar region with neurogenic claudication (principal); M79.18 Myalgia, other site; Z79.891 Long term (current) use of opiate analgesic; M62.838 Other muscle spasm; M47.816 Spondylosis without myelopathy or radiculopathy, lumbar region; M48.02 Spinal stenosis, cervical region
CPT/HCPCS: G0463

== ENCOUNTER 2023-09-21 10:58 | Outpatient (OUT) | payer OTHER, MEDICARE, SELFPAY ==
--- NOTE | 2023-09-21 13:17 | P.CN_ITS ---
Consult Note: HPI Data of Consult Patient: known to practice within the last 3 years Requesting Physician: Nikki Hadley NP Primary Care Provider: MALGORZATA LITTLEJOHN Consult Narrative Reason for consult: f/u Narrative: Beau Lozano a pleasant 63 year old male presents for evaluation of chronic back pain unresponsive to HEP and PT greater than 6 weeks and conservative medications. Pt has extensive hx of moderate to severe spinal canal stenosis from cervical to lumbar spine with multilevel DDD and facet arthropathy. patient recently underwent C3-T2 decompression and fusion with significant improvement in pain and symptoms. Patient reporting pain 3-4/10 dull ache today increasing to 7/10 with standing walking activity and improved with sitting lying and medications. Patient continues to utilize diclofenac 75mg BID, skelaxin 800mg BID-TID, gabapentin 600mg QID, tramadol 50mg TID with benefit, denies side effects. Patient engaged in PT post surgery with benefit. Patient very pleased with care plan and medication regimen at this time. cc:: CC: Nikki Hadley NP Review of Systems ROS Status of ROS 10 or more systems reviewed and unremark able except as noted in history and below Musculoskeletal Reports: back pain and neck pain PFSH PFSH Medical History Osteoarthritis ?M19.90 - Unspecified osteoarthritis, unspecified site (ICD-10) Diabetes ?E11.9 - Type 2 diabetes mellitus without complications (ICD-10) HTN (hypertension) ?I10 - Essential (primary) hypertension (ICD-10) High cholesterol ?E78.00 - Pure hypercholesterolemia, unspecified (ICD-10) Surgical History History of arthroscopy of knee ?Z98.890 - Other specified postprocedural states (ICD-10) History of knee replacement ?Z96.659 - Presence of unspecified artificial knee joint (ICD-10) History of hernia repair ?Z98.890 - Other specified postprocedural states (ICD-10) ?Z87.19 - Personal history of other diseases of the digestive system (ICD-10) Meds Home Medications and Allergies Home Medications ?Medication ?Instructions ?Recorded ?Confirmed ?Type amlodipine 10 mg tablet 10 mg PO DAILY 12/08/22 04/03/23 History diclofenac sodium 75 mg 75 mg PO BID 12/08/22 04/03/23 History tablet,delayed release lisinopril 20 1 tab PO DAILY 12/08/22 04/03/23 History mg-hydrochlorothiazide 12.5 mg tablet lovastatin 10 mg tablet 10 mg PO DAILY 12/08/22 04/03/23 History metformin 1,000 mg tablet 1,000 mg PO DAILY 12/08/22 04/03/23 History potassium chloride 10 mEq 10 meq PO DAILY 12/08/22 04/03/23 History tablet,extended release (K-Tab) tramadol 50 mg tablet 50 mg PO TID 12/08/22 04/03/23 History diclofenac sodium 75 mg 75 mg PO BID PRN pain #60 tabs 03/09/23 03/20/23 Rx tablet,delayed release tramadol 50 mg tablet 50 mg PO TID PRN pain #90 tabs 03/09/23 03/20/23 Rx tramadol 50 mg tablet 50 mg PO TID PRN pain #90 tabs 04/12/23 Rx methocarbamol 500 mg tablet 500 mg PO TID 04/26/23 04/26/23 History tramadol 50 mg tablet 50 mg PO TID PRN pain #90 tabs 05/11/23 Rx diclofenac sodium 75 mg 75 mg PO BID #60 tabs 06/07/23 Rx tablet,delayed release tramadol 50 mg tablet 50 mg PO TID PRN pain #180 tabs 06/07/23 Rx gabapentin 600 mg tablet 600 mg PO QID 06/15/23 06/15/23 History hydrocodone 5 mg-acetaminophen 325 1 tab PO TID PRN pain #6 tabs 07/27/23 Rx mg tablet tramadol 50 mg tablet 50 mg PO TID PRN pain #90 tabs 09/19/23 Rx Allergies Allergy/AdvReac Type Severity Reaction Status Date / Time No Known Drug Allergies Allergy Verified 04/03/23 08:24 Exam Constitutional Documenting provider has reviewed patient's vital signs: yes Common normals: no apparent distress, oriented x3, healthy appearing, alert and well nourished General appearance: cooperative HENOH Common normals: normocephalic, hearing grossly normal bilaterally and moist oral mucous membranes Head and scalp: normocephalic Eye Common normals: PERRL Pupil: PERRL Neck & C-Spine Common normals: full ROM General: normal visual inspection Other: surgical scar well healed utilizing c-collar PRN Chest Common normals: inspection of chest normal Respiratory Common normals: normal respiratory effort, no retractions and no use of accessory muscles Back & Pelvis Thoracic spine/upper back: ROM limited and pain with ROM Lumbar spine/lower back: ROM limited, pain with ROM and straight leg raise negative bilaterally Sacroiliac joints: SI joints normal Other: strength 4/5 in BLE Extremity Common normals: normal to inspection and full ROM Neuro Common normals: oriented x3, CN's II-XII intact bilaterally, moves all extremities, no focal motor deficits, no sensory deficits noted and deep tendon reflexes 2+ bilaterally Sensorium/orientation: alert Gait (neuro): antalgic Motor exam: strength 5/5 throughout and no movement abnormalities noted Psych Common normals: mental status grossly normal, thought process normal, cooperative, affect normal, speech normal and activity/motor behavior normal Speech: normal speech Thought process: normal thought process Results Additional Findings Additional findings: If on a controlled substance or opioids, I have checked an [place] report on this patient and there are no aberrancies noted in the prescribing history.??If on a controlled substance or opioid a drug screen was completed and reviewed within the last year, and if there has not been a drug screen completed we ordered one today to monitor higher risk, state monitored pain medication use. As part of providing excellent, safe, comprehensive care, the following was completed at our patient's visit: 1. A medication reconciliation and review to ensure accurate knowledge of current/active medications, including asking our patients to inform us about any [id number] medications or herbal remedies/nutritional supplements/alternative remedies. 2. A review to specifically ensure our patients have had annual screening for screening for depression, screening for tobacco use, and screening for unhealthy alcohol use. For concerning screenings had a discussion with the patient, provided patient education, and recommended follow-up with primary care provider when appropriate. If patient noted with a risk of falling, they received education on strength, gait, and balance training to prevent future risk of falling. Assessment and Plan Assessment and Plan (1) Lumbar stenosis with neurogenic claudication: (2) Myofascial pain syndrome of lumbar spine: (3) Chronic, continuous use of opioids: Assessment and Plan: I feel these medications are improving the patient's quality of life and allow them to tolerate activities of daily living as well as participate in recreational activity.? The patient does not report intolerable side effects. The patient is NOT opioid naive and non-pharmacologic and non-opioid treatment has failed to significantly relieve the patient's pain and improve functionality. The patient has a diagnosis that is related to a somatic or vi sceral pain etiology. ? ?? I reviewed with the patient the potential risks and side effects with the use of? opioid medications including but not limited to respiratory depression,? sedation, and even . I verified the patient has access to naloxone should? these effects occur. I advised the patient to avoid the use of any other? sedation substances including alcohol, THC, and benzodiazepines while? taking opioid medications due to the risk of compounding side effects and? detrimental outcomes. I reviewed the [employer]ARMACEUTICAL DETAILER, pain treatment agreement, urine? drug screen, and opioid start talking forms. The patient was advised to let? their family know they had Naloxone in case they would need to administer? the medication.? ?? A drug screen was completed within the last year, and no aberrancies were noted regarding their use of controlled substances. The patient understands they are subject to the terms and conditions of the pain contract that they have signed. ? ?? I have checked an [place] report on this patient today and there are no aberrancies noted in the prescribing history.? (4) Muscle spasm: (5) Lumbar spondylosis: (6) Cervical spinal stenosis: (7) Chronic musculoskeletal pain: Plan continue f/u with NS, next appointment sunday 09/24 continue tramadol 50mg TID PRN moderate to severe pain continue gabapentin 600mg QID continue diclofenac 75mg BID continue skelaxin 800mg TID PRN myofascial pain muscle spasms continue PT and HEP f/u 3 months for medication management
== END 2023-09-21 10:59 | disposition home or self-care (01) ==
LOC: PM 10:59
PROVIDERS: PCP Family Medicine; Visit Provider Nurse Practitioner
DX: M48.062 Spinal stenosis, lumbar region with neurogenic claudication (principal); M79.18 Myalgia, other site; Z79.891 Long term (current) use of opiate analgesic; M62.838 Other muscle spasm; M47.816 Spondylosis without myelopathy or radiculopathy, lumbar region; M48.02 Spinal stenosis, cervical region; G89.4 Chronic pain syndrome
CPT/HCPCS: G0463

== ENCOUNTER 2023-12-21 10:21 | Outpatient (OUT) | payer OTHER, SELFPAY ==
--- NOTE | 2023-12-21 13:15 | PM.CN ---
Consult Note: HPI Data of Consult Patient: known to practice within the last 3 years Requesting Physician: Nikki Hadley NP Primary Care Provider: MALGORZATA LITTLEJOHN Consult Narrative Reason for consult: f/u Narrative: Beau Lozano a pleasant 63 year old male presents for evaluation of chronic back pain unresponsive to HEP and PT greater than 6 weeks and conservative medications. Pt has extensive hx of moderate to severe spinal canal stenosis from cervical to lumbar spine with multilevel DDD and facet arthropathy. patient recently underwent C3-T2 decompression and fusion with significant improvement in pain and symptoms. Patient reporting pain 3-4/10 dull ache today increasing to 7/10 with standing walking activity and improved with sitting lying and medications. Patient continues to utilize diclofenac 75mg BID, skelaxin 800mg BID-TID, gabapentin 600mg QID, tramadol 50mg TID with benefit, denies side effects. Patient has been following with SHARON Townsend who is recommending pt undergo left L3 TFESI. cc:: CC: Nikki Hadley NP Review of Systems ROS Status of ROS 10 or more systems reviewed and unremarkable except as noted in history and below Musculoskeletal Reports: back pain and extremity pain PFSH PFSH Medical History Osteoarthritis ?M19.90 - Unspecified osteoarthritis, unspecified site (ICD-10) Diabetes ?E11.9 - Type 2 diabetes mellitus without complications (ICD-10) HTN (hypertension) ?I10 - Essential (primary) hypertension (ICD-10) High cholesterol ?E78.00 - Pure hypercholesterolemia, unspecified (ICD-10) Surgical History History of arthroscopy of knee ?Z98.890 - Other specified postprocedural states (ICD-10) History of knee replacement ?Z96.659 - Presence of unspecified artificial knee joint (ICD-10) History of hernia repair ?Z98.890 - Other specified postprocedural states (ICD-10) ?Z87.19 - Personal history of other diseases of the digestive system (ICD-10) Meds Home Medications and Allergies Home Medications ?Medication ?Instructions ?Recorded ?Confirmed ?Type amlodipine 10 mg tablet 10 mg PO DAILY 12/08/22 04/03/23 History lisinopril 20 1 tab PO DAILY 12/08/22 04/03/23 History mg-hydrochlorothiazide 12.5 mg tablet lovastatin 10 mg tablet 10 mg PO DAILY 12/08/22 04/03/23 History metformin 1,000 mg tablet 1,000 mg PO BID 12/08/22 09/21/23 History potassium chloride 10 mEq 10 meq PO DAILY 12/08/22 04/03/23 History tablet,extended release (K-Tab) tramadol 50 mg tablet 50 mg PO TID 12/08/22 04/03/23 History gabapentin 600 mg tablet 600 mg PO QID 06/15/23 06/15/23 History cholecalciferol (vitamin D3) 50 50 mcg PO DAILY 09/21/23 09/21/23 History mcg (2,000 unit) capsule (D3-2000) diclofenac sodium 100 mg 100 mg PO BID 09/21/23 09/21/23 History tablet,extended release 24 hr empagliflozin 25 mg tablet 25 mg PO DAILY 09/21/23 09/21/23 History (Jardiance) metaxalone 800 mg tablet 800 mg PO BID 09/21/23 09/21/23 History multivitamin 1 tab PO DAILY 09/21/23 09/21/23 History tramadol 50 mg tablet 50 mg PO TID PRN pain #90 tabs 10/19/23 Rx tramadol 50 mg tablet 50 mg PO TID PRN pain #90 tabs 11/16/23 Rx tramadol 50 mg tablet 50 mg PO TID PRN pain #90 tabs 12/13/23 Rx Allergies Allergy/AdvReac Type Severity Reaction Status Date / Time No Known Drug Allergies Allergy Verified 04/03/23 08:24 Exam Constitutional Documenting provider has reviewed patient's vital signs: yes Common normals: no apparent distress, oriented x3, healthy appearing, alert and well nourished General appearance: cooperative HENME Common normals: normocephalic, hearing grossly normal bilaterally and moist oral mucous membranes Head and scalp: normocephalic Eye Common normals: PERRL Pupil: PERRL Neck & C-Spine Common normals: full ROM General: normal visual inspection Other: surgical scar well healed utilizing c-collar PRN Chest Common normals: inspection of chest normal Respiratory Common normals: normal respiratory effort, no retractions and no use of accessory muscles Back & Pelvis Thoracic spine/upper back: ROM limited and pain with ROM Lumbar spine/lower back: ROM limited, pain with ROM and straight leg raise positive left Sacroiliac joints: SI joints normal Other: strength 4/5 in LLE 5/5 in RLE altered sensation to left L3,4,5 pattern Extremity Common normals: normal to inspection and full ROM Neuro Common normals: oriented x3, CN's II-XII intact bilaterally, moves all extremities, no focal motor deficits, no sensory deficits noted and deep tendon reflexes 2+ bilaterally Sensorium/orientation: alert Gait (neuro): antalgic Motor exam: no movement abnormalities noted and strength abnormal Psych Common normals: mental status grossly normal, thought process normal, cooperative, affect normal, speech normal and activity/motor behavior normal Speech: normal speech Thought process: normal thought process Results Additional Findings Additional findings: If on a controlled substance or opioids, I have checked an [place] report on this patient and there are no aberrancies noted in the prescribing history.??If on a controlled substance or opioid a drug screen was completed and reviewed within the last year, and if there has not been a drug screen completed we ordered one today to monitor higher risk, state monitored pain medication use. As part of providing excellent, safe, comprehensive care, the following was completed at our patient's visit: 1. A medication reconciliation and review to ensure accurate knowledge of current/active medications, including asking our patients to inform us about any aomk-[id number]-adfmyig medications or herbal remedies/nutritional supplements/alternative remedies. 2. A review to specifically ensure our patients have had annual screening for screening for depression, screening for tobacco use, and screening for unhealthy alcohol use. For concerning screenings had a discussion with the patient, provided patient education, and recommended follow-up with primary care provider when appropriate. If patient noted with a risk of falling, they received education on strength, gait, and balance training to prevent future risk of falling. Assessment and Plan Assessment and Plan (1) Lumbar radiculopathy: (2) Cervical spinal stenosis: (3) Neuropathy: (4) Lumbar stenosis with neurogenic claudication: (5) Myofascial pain syndrome of lumbar spine: (6) Chronic, continuous use of opioids: Assessment and Plan: I feel these medications are improving the patient's quality of life and allow them to tolerate activities of daily living as well as participate in recreational activity.? The patient does not report intolerable side effects. The patient is NOT opioid naive and non-pharmacologic and non-opioid treatment has failed to significantly relieve the patient's pain and improve functionality. The patient has a diagnosis that is related to a somatic or visceral pain etiology. ? ?? I reviewed with the patient the potential risks and side effects with the use of? opioid medications including but not limited to respiratory depression,? sedation, and even . I verified the patient has access to naloxone should? these effects occur. I advised the patient to avoid the use of any other? sedation substances including alcohol, THC, and benzodiazepines while? taking opioid medications due to the risk of compounding side effects and? detrimental outcomes. I reviewed the [employer], pain treatment agreement, urine? drug screen, and opioid start talking forms. The patient was advised to let? their family know they had Naloxone in case they would need to administer? the medication.? ?? A drug screen was completed within the last year, and no aberrancies were noted regarding their use of controlled substances. The patient understands they are subject to the terms and conditions of the pain contract that they have signed. ? ?? I have checked an [place] report on this patient today and there are no aberrancies noted in the prescribing history.? (7) Muscle spasm: (8) Lumbar spondylosis: Plan Left L3 TFESI under fluoroscopy for lumbar radiculopathy, per Dr Deysi HERRERA recommendation continue current medications tolerating well without side effect f/u 2 weeks after EJ
== END 2023-12-21 10:22 | disposition home or self-care (01) ==
LOC: PM 10:21
PROVIDERS: PCP Family Medicine; Visit Provider Nurse Practitioner
DX: M48.062 Spinal stenosis, lumbar region with neurogenic claudication (principal); M48.02 Spinal stenosis, cervical region; G62.9 Polyneuropathy, unspecified; M79.18 Myalgia, other site; Z79.899 Other long term (current) drug therapy; M47.26 Other spondylosis with radiculopathy, lumbar region; M62.838 Other muscle spasm
CPT/HCPCS: G0463

== ENCOUNTER 2024-01-08 09:28 | Day surgery (SDC) | payer OTHER, SELFPAY ==
--- OUTSIDE RECORDS SUMMARY | 2024-01-08 09:37 | XMS_ITS | CCD ---
Author Organization [facility] Care Team Providers Care Channel Opener Outsoles Name Role Phone LAKSHMIPATHY ., NARENDRANATH Consulting Olga vailable LAKSHMIPATHY ., NARENDRANATH Attending Olga vailable LAKSHMIPATHY ., NARENDRANATH Admitting Olga vailable FURLONG, DR WALTER Toney Primary Care Unavailable LAKSHMIPATHY ., NARENDRANATH Consulting Olga vailable LAKSHMIPATHY ., NARENDRANATH Attending Olga vailable LAKSHMIPATHY ., NARENDRANATH Admitting Olga vailable FURLONG, DR WALTER Toney Primary Care Unavailable LAKSHMIPATHY ., NARENDRANATH Consulting Olga vailable LAKSHMIPATHY ., NARENDRANATH Attending Olga vailable FURLONG, DR WALTER Toney Primary Care Unavailable LAKSHMIPATHY ., NARENDRANATH Admitting Olga vailable LAKSHMIPATHY ., NARENDRANATH Consulting Olga vailable LAKSHMIPATHY ., NARENDRANATH Attending Olga vailable FURLONG, DR WALTER Toney Primary Care Unavailable LAKSHMIPATHY ., NARENDRANATH Admitting Olga vailable LAKSHMIPATHY ., NARENDRANATH Consulting Olga vailable FURLONG, DR WALTER Toney Primary Care Unavailable LAKSHMIPATHY ., NARENDRANATH Admitting Olga vailable LAKSHMIPATHY ., NARENDRANATH Attending Olga vailable LAKSHMIPATHY ., NARENDRANATH Attending Olga vailable FURLONG, DR WALTER Toney Primary Care Unavailable LAKSHMIPATHY ., CRISTHIANENDRANATH Admitting Olga vailable FURLONG, DR WALTER Toney Primary Care Unavailable TEJINDER ., DR ABDOULAYE Lundy Attending Unavailable GEORGE .MARIA DOLORES Consulting Unavailable MARR ., DR ABDOULAYE Lundy Admitting Unavailable FURLONG, DR WALTER Toney Primary Care Unavailable FURLONG, DR WALTER Toney Referring Unavailable MARR ., DR ABDOULAYE Lundy Admitting Unavailable MARR ., DR ABDOULAYE Lundy Attending Unavailable GEORGE .MARIA DOLORES Consulting Unavailable LAKSHMIPATHY ., NURIA Consulting Olga vailable FURLONG, DR WALTER Toney Primary Care Unavailable LAKSHMIPATHY ., NARENDRANATH Attending Olga vailable LAKSHMIPATHY ., NARENDRANATH Admitting Olga vailable [facility] Consulting Unavailable TOPHER, DAY Attending Unavailable TOPHER, DAY Admitting Unavailable FURLONG, DR WALTER Toney Primary Care Unavailable [place], DR GUILLERMO Braun Consulting Unavailable TOPHER, DAY Consulting Unavailable LAKSHMIPATHY ., NARENDRANATH Attending Olga vailable WEST, DR GUILLERMO Braun Consulting Unavailable FURLONG, DR WALTER Toney Primary Care Unavailable LAKSHMIPATHY ., NARENDRANATH Admitting Olga vailable LAKSHMIPATHY ., NARENDRANATH Consulting Olga vailable TOPHER, DAY Attending Unavailable RODGER, DR WILL Guerrero Consulting Unavailable FURLONG, DR WALTER Toney Primary Care Unavailable TOPHER, DAY Admitting Unavailable TOPHER, DAY Consulting Unavailable LAKSHMIPATHY ., CRISTHIANENDRUSSELLATH Attending Olga vailable LAKSHMIPATHY ., NARENDRANATH Admitting Olga vailable FURLONG, DR WALTER Toney Primary Care Unavailable ZIEBERDR WILL Consulting Unavailable LAKSHMIPATHY ., NARENDRANATH Consulting Olga vailable LAKSHMIPATHY ., NARENDRANATH Attending Olga vailable LAKSHMIPATHY ., NARENDRANATH Admitting Olga vailable HALKER .LAURA Consulting Unavailable FURLONG, DR WALTER Toney Primary Care Unavailable Loc ANDERSON, Macey Rivas Attending Unavailable Loc ANDERSON, Macey Rivas Attending Unavailable TOPHER, DAY L Primary Care Unavailable CUAUHTEMOC YODER Referring Unavailable Furlong Walter MOY Primary Care Provider [phone] Topher AUTOMOTIVE STARTER REPAIRER - EYEGLASS LENS GENERATOR, Day Primary Care Provider Topher AUTOMOTIVE STARTER REPAIRER-[facility], Day Primary Care Provider AHAMMAD, MIKE Attending Unavailable AHAMMAD, MIKE Referring Unavailable TOPHER, DYA L Primary Care Unavailable ADENSBETHANY W Referring Unavailable TOPHER, DAY L Primary Care Unavailable JACKS, BETHANY W Referring Unavailable TOPHER, DAY L Primary Care Unavailable AHAMMAD, MIKE Referring Unavailable TOPHER, DAY L Primary Care Unavailable AHAMMAD, MIKE Referring Unavailable TOPHER, DAY L Primary Care Unavailable CUAUHTEMOC YODER Attending Unavailable CUAUHTEMOC YODER Referring Unavailable TOPHER, DAY L Primary Care Unavailable AHAMMAD, MIKE Attending Unavailable AHAMMAD, MIKE Referring Unavailable TOPHER, DAY L Primary Care Unavailable AHAMMAD, MIKE Referring Unavailable TOPHER, DAY L Primary Care Unavailable AHAMMAD, MIKE Referring Unavailable TOPHER, DAY L Primary Care Unavailable AHAMMAD, MIKE Admitting Unavailable AHAMMAD, MIKE Attending Unavailable TOPHER, DAY L Primary Care Unavailable JUDE ROTHMAN Referring Unavailable ASIF WALTERS Consulting Unavailable AHAMMAD, MIKE Referring Unavailable TOPHER, DAY L Primary Care Unavailable MOHAMUD, PEDRO Referring Unavailable TOPHER, DAY L Primary Care Unavailable MOHAMUD, PEDRO Referring Unavailable TOPHER, DAY L Primary Care Unavailable AHAMMAD, MIKE Referring Unavailable TOPHER, DAY L Primary Care Unavailable AHAMMAD, MIKE Referring Unavailable TOPHER, DAY L Primary Care Unavailable AHAMMAD, MIKE Referring Unavailable TOPHER, DAY L Primary Care Unavailable AHAMMAD, MIKE Referring Unavailable TOPHER, DAY L Primary Care Unavailable MOHAMUD, PEDRO Referring Unavailable TOPHER, DAY L Primary Care Unavailable AHAMMAD, MIKE Referring Unavailable TOPHER, DAY L Primary Care Unavailable TOPHER, DAY L Attending Unavailable TOPHER, DAY L Referring Unavailable TOPHER, DAY L Primary Care Unavailable TOPHER, DAY L Attending Unavailable TOPHER, DAY L Referring Unavailable TOPHER, DAY L Primary Care Unavailable TOPHER, DAY L Attending Unavailable WALTER LITTLEJOHN Referring Unavailable TOPHER, DAY L Primary Care Unavailable TOPHER, DAY L Attending Unavailable TOPHER, DAY L Referring Unavailable TOPHER, DAY L Primary Care Unavailable TOPHER, DAY L Attending Unavailable TOPHER, DAY L Referring Unavailable DAY OBANDO Primary Care Unavailable Medications Current Medications Medication Drug Class(es) Dates Sig (Normalized) Sig (Original) acetaminophen 325 mg / oxyCODONE hydrochloride 5 mg oral tablet (1 source) Opioid Agonist Start: 07-31-2023 End: 08-07-2023 oxyCODONE-acetamino phen (PERCOCET) 5-325 MG per tablet Indications: 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 May also take 2 tablets every 6 hours as needed for Pain. Do all this for 7 days. Intended supply: 7 days. Take lowest dose possible to manage pain. Max Daily Amount: 8 tablets. 56 tablet 0 07/31/2023 08/07/2023 Active acyclovir 0.05 mg/mg topical ointment (4 sources) Herpesvirus Nucleoside Analog DNA Polymerase Inhibitor, Herpes Simplex Virus Nucleoside Analog DNA Polymerase Inhibitor, Herpes Zoster Virus Nucleoside Analog DNA Polymerase Inhibitor Start: 03-31-2022 acyclovir (ZOVIRAX) 5 % ointment Apply 1 application topically 5 (five) times a day. 15 g 0 03/31/2022 Active acyclovir 50 mg/ml / hydrocortisone 10 mg/ml topical cream (4 sources) Herpesvirus Nucleoside Analog DNA Polymerase Inhibitor, Corticosteroid, Herpes Simplex Virus Nucleoside Analog DNA Polymerase Inhibitor, Herpes Zoster Virus Nucleoside Analog DNA Polymerase Inhibitor Start: 12-30-2022 acyclovir-hydrocort isone (XERESE) 5-1 % cream Apply 1 Application topically 5 (five) times a day. 5 g 1 12/30/2022 Active amLODIPine 10 mg oral tablet (10 sources) Dihydropyridine Calcium Channel Reji Start: 01-20-2023 End: 08-22-2023 take 1 tablet by mouth once daily amLODIPine (NORVASC) 10 MG tablet Take 1 tablet by mouth daily 0 04/20/2023 Active baclofen 10 mg oral tablet (4 sources) gamma-Aminobutyric Acid-ergic Agonist take 1 tablet by mouth once daily baclofen (LIORESAL) 10 mg tablet Take 1 tablet (10 mg total) by mouth nightly. 0 Active ciclopirox 10 mg/ml medicated shampoo (4 sources) apply 5-10 mL topically two times weekly ciclopirox (LOPROX) 1 % shampoo ciclopirox 1 % shampoo APPLY 5 - 10 MILLILITERS TO WET HAIR BY TOPICAL ROUTE TWICE WEEKLY WITH AT LEAST 3 DAYS BETWEEN EACH SHAMPOOING 0 Active cyclobenzaprine hydrochloride 10 mg oral tablet (6 sources) Muscle Relaxant Start: 07-28-2023 End: 07-30-2023 cyclobenzaprine (FLEXERIL) tablet 10 mg Start: 09-01-2022 take 1 tablet by jacques th every eight hours as needed cyclobenzaprine (FLEXERIL) 10 mg tablet Take 1 tablet (10 mg total) by mouth every 8 (eight) hours as needed for muscle spasms. 30 tablet 1 09/01/2022 Active diclofenac sodium 75 mg delayed release oral tablet (8 sources) Nonsteroidal Anti-inflammatory Drug Start: 04-21-2022 take 1 tablet by mouth every four hours as needed for pain diclofenac (VOLTAREN) 75 MG EC tablet Take 1 tablet by mouth every 4 hours as needed for Pain 0 05/02/2023 Active empagliflozin 25 mg oral tablet (9 sources) Sodium-Glucose Cotransporter 2 Inhibitor Start: 03-30-2023 take 1 tablet by mouth once daily empagliflozin (JARDIANCE) 25 MG tablet Take 1 tablet by mouth daily 0 03/30/2023 Active Start: 03-30-2023 take 2 tablets by mo uth once daily empagliflozin (JARDIANCE) 10 MG tablet Take 2 tablets by mouth daily 0 03/30/2023 Active Start: 03-30-2023 End: 06-15-2023 take 1 tablet by mouth in the morning JARDIANCE 10 mg tablet tablet TAKE 1 TABLET(10 MG) BY MOUTH IN THE MORNING 30 tablet 1 06/15/2023 Active Famotidine (1 source) Histamine-2 Receptor Antagonist Start: 07-28-2023 famotidine (PEPCID) tablet 20 mg gabapentin 300 mg oral capsule (12 sources) Anti-epileptic Agent Start: 07-31-2023 gabapenti n (NEURONTIN) capsule 600 mg Start: 06-19-2023 take 1 tablet by jacques th at bedtime gabapentin (NEURONTIN) 600 MG tablet Take 1 tablet by mouth in the morning, at noon, in the evening, and at bedtime. 0 07/18/2023 Active Start: 05-03-2023 End: 07-31-2023 take 300 mg by mouth every four hours as needed 300 mg, Oral, EVERY 4 HOURS PRN, Starting on 07/28/23 at 1723, Until 07/30/23 at 1306, as needed for numbness/tingling., Post-op Start: 06-27-2022 take 1 capsule by mo uth once daily gabapentin (NEURONTIN) 100 mg capsule Take 1 capsule (100 mg total) by mouth nightly. 0 06/27/2022 Active glucagon (rdna) 1 mg injection (1 source) Antihypoglycemic Agent Start: 07-28-2023 glucago n injection 1 mg 1000 ml glucose 100 mg/ml injection (3 sources) Start: 07-28-2023 dextrose 10 % infusion Start: 07-28-2023 dextrose bolus 10% 125 mL Start: 07-28-2023 glucose chewab le tablet 16 g hydroCHLOROthiazide 12.5 mg / lisinopril 20 mg oral tablet (9 sources) Thiazide Diuretic, Angiotensin Converting Enzyme Inhibitor Start: 04-21-2023 End: 08-22-2023 take 2 tablets by mouth once daily lisinopril-hydroCHLOROthiazide (PRINZIDE;ZESTORETIC) 20-12.5 MG per tablet Take 2 tablets by mouth daily 0 04/21/2023 Active hydrocortisone 25 mg/ml topical cream (4 sources) Corticosteroid Start: 03-31-2022 hydrocortisone (HYTONE) 2.5 % cream Apply 1 application topically in the morning and 1 application before bedtime. Do not use for more than 2 wks at a time.. 30 g 0 03/31/2022 Active insulin lispro 100 unt/ml injectable solution (2 sources) Insulin Analog Start: 07-28-2023 insulin lispro (HUMALOG) injection vial 0-4 Units lidocaine 40 mg/ml topical cream (4 sources) Antiarrhythmic, Amide Local Anesthetic lidocaine (LMX) 4 % cream Apply 1 application topically in the morning. 0 Active Lisinopril (1 source) Angiotensin Converting Enzyme Inhibitor Start: 07-28-2023 lisinopril (PRINIVIL;ZESTRIL ) tablet 40 mg lovastatin 10 mg oral tablet (9 sources) HMG-CoA Reductase Inhibitor Start: 04-21-2023 End: 08-22-2023 take 1 tablet by mouth once daily lovastatin (MEVACOR) 10 MG tablet Take 1 tablet by mouth daily 0 04/21/2023 Active metaxalone 800 mg oral tablet (7 sources) Start: 07-19-2023 take 1-2 tablets by mouth twice daily metaxalone (SKELAXIN) 800 mg tablet TAKE 1-2 TABLETS BY MOUTH TWICE DAILY 0 07/19/2023 Active take 1 tablet by jacques th every four hours as needed for pain metaxalone (SKELAXIN) 800 MG tablet Take 1 tablet by mouth every 4 hours as needed for Pain 0 Active metFORMIN hydrochloride 500 mg oral tablet (7 sources) Biguanide Start: 06-01-2023 take 2 tablets by mouth once daily in the morning metFORMIN (GLUCOPHAGE) 500 mg tablet TAKE 2 TABLETS BY MOUTH EVERY MORNING AND 2 TABLETS IN THE EVENING WITH MEALS 360 tablet 0 06/01/2023 Active Start: 02-17-2023 End: 08-13-2024 take 2 tablets by mouth twice daily at mealtime metFORMIN (GLUCOPHAGE) 500 MG tablet Take 2 tablets by mouth 2 times daily (with meals) 120 tablet 2 02/17/2023 08/13/2024 Active metoprolol tartrate 25 mg oral tablet (11 sources) beta-Adrenergic Reji Start: 08-22-2023 End: 08-25-2023 take 0.5 tablet by mouth once daily at bedtime metoprolol tartrate (LOPRESSOR) 25 mg tablet TAKE 1/2 TABLET BY MOUTH EVERY MORNING AND EVERY NIGHT AT BEDTIME 90 tablet 1 08/25/2023 Active Start: 07-31-2023 End: 08-22-2023 take 0.5 tablet by mouth twice daily metoprolol tartrate (LOPRESSOR) 25 MG tablet Take 0.5 tablets by mouth 2 times daily 60 tablet 1 07/31/2023 Active Start: 07-31-2023 metoprolol tar trate (LOPRESSOR) tablet 12.5 mg Multiple Vitamin (DAILY VITAMINS PO) (4 sources) take 1 tablet by mouth once daily Multiple Vitamin (DAILY VITAMINS PO) Take 1 tablet by mouth daily 0 Active naloxone hydrochloride 40 mg/ml nasal spray (4 sources) Opioid Antagonist Start: 10-13-2022 naloxone (NARCAN) 4 mg/actuation spray,non-aerosol nasal spray CALL 911. SPR CONTENTS OF ONE SPRAYER (0.1ML) INTO ONE NOSTRIL. REPEAT IN 2-3 MIN IF SYMPTOMS OF OPIOID EMERGENCY PERSIST, ALTERNATE NOSTRILS 0 10/13/2022 Active oxyCODONE (1 source) Opioid Agonist Start: 07-28-2023 oxyCODONE (ROXICODONE) immediate release tablet 5 mg traMADol hydrochloride 50 mg oral tablet (8 sources) Opioid Agonist Start: 04-08-2019 End: 07-27-2023 traMADol (ULTRAM) 50 mg tablet take 1 tablet by jacques th every eight hours as needed for pain traMADol (ULTRAM) 50 MG tablet Take 1 tablet by mouth every 8 hours as needed for Pain. 0 Active Completed/Discontinued Medications Medication Drug Class(es) Dates Sig (Normalized) Sig (Original) acetaminophen 325 mg oral tablet (1 source) Start: 07-28-2023 take 650 mg by mouth every six hours, then take 4000 mg by mouth every twenty-four hours 650 mg, Oral, EVERY 6 HOURS, First dose on Mon07/28/23 at 1745, Until Discontinued Maximum dose of acetaminophen is 4000 mg from all sources in 24 hours. Post-op acetaminophen 325 mg / HYDROcodone bitartrate 5 mg oral tablet (1 source) Opioid Agonist End: 07-31-2023 take 1 tablet by mouth every eight hours as needed for pain HYDROcodone-acetami nophen (NORCO) 5-325 MG per tablet Take 1 tablet by mouth every 8 hours as needed for Pain. 0 07/31/2023 Discontinued (Stop Taking at Discharge) atorvastatin 20 mg oral tablet (1 source) HMG-CoA Reductase Inhibitor Start: 07-28-2023 take 10 mg by mouth once daily 10 mg, Oral, DAILY, First dose on Mon07/28/23 at 1745, Until Discontinued Substituted for Lovastatin (MEVACOR). Post-op bisacodyl 10 mg rectal suppository (1 source) Stimulant Laxative Start: 07-28-2023 take 10 mg rectal route once daily as needed 10 mg, Rectal, DAILY PRN, Starting on Mon07/28/23 at 1723, Until Discontinued, Constipation Second line therapy for constipation, After 24 hours, if no result from first line PRN therapy, give second line therapy in combination with first line therapy. Post-op calcium chloride 0.0014 meq/ml / potassium chloride 0.004 meq/ml / sodium chloride 0.103 meq/ml / sodium lactate 0.028 meq/ml injectable solution (1 source) Start: 07-28-2023 End: 07-28-2023 lactated ringers IV soln infusion ceFAZolin (ANCEF) 2000 mg in sterile water 20 mL IV syringe (1 source) Start: 07-28-2023 End: 07-29-2023 2,000 mg, IntraVENous, EVERY 8 HOURS, 3 doses, First dose on Mon07/28/23 at 2030, Last dose on Mon07/29/23 at 1330 Antimicrobial Indications: Surgical Prophylaxis Administer over 5 mins. Post-op cholecalciferol 0.025 mg oral tablet (10 sources) Vitamin D Start: 07-28-2023 take 2000 [IU] by mouth once daily 2,000 Units, Oral, DAILY, First dose on Mon07/28/23 at 1800, Until Discontinued, Post-op Cholecalciferol (VITAMIN D3) 50 MCG (2000 UT) CAPS Take 50 capsules by mouth daily 0 Active take 4 capsules by m outh in the morning cholecalciferol, vitamin D3, 1,000 unit capsule Take 4 capsules (4,000 Units total) by mouth in the morning. 0 Active End: 07-10-2023 take 1 capsule by mouth once daily vitamin D (CHOLECALCIFEROL) 125 MCG (5000 UT) CAPS capsule Take 1 capsule by mouth daily 0 07/10/2023 Discontinued (Therapy completed) End: 07-10-2023 take 1 capsule by mouth once daily vitamin D 25 MCG (1000 UT) CAPS Take 1 capsule by mouth daily 0 07/10/2023 Discontinued (Therapy completed) 0.4 ml enoxaparin sodium 100 mg/ml prefilled syringe (1 source) Low Molecular Weight Heparin Start: 07-29-2023 inject 40 mg by subcutaneous injection once daily 40 mg, SubCUTAneous, DAILY, First dose on Mon07/29/23 at 0900, Until Discontinued Indication of Use: Prophylaxis-DVT/PE Administer by deep subCUTAneous injection with pt lying down. Alternate injection sites on abdominal wall. Do not rub site after injection. Check with provider prior to any invasive procedure. Post-op 1 ml HYDROmorphone hydrochloride 1 mg/ml cartridge (3 sources) Opioid Agonist Start: 07-28-2023 End: 07-28-2023 HYDROmorphone (DILAUDID) injection 0.5 mg iopamidol (ISOVUE-370) 76 % injection 85 mL (1 source) Start: 07-30-2023 End: 07-30-2023 iopamidol (ISOVUE-370) 76 % injection 85 mL labetalol hydrochloride 5 mg/ml injectable solution (1 source) beta-Adrenergi c Reji Start: 07-28-2023 End: 07-28-2023 labetalol (NORMODYNE;TRANDATE) injection 5 mg Start: 07-28-2023 End: 07-28-2023 labetalol (NORMODYNE;TRANDAT E) injection 5 mg polyethylene glycol [id number] mg powder for oral solution (1 source) Osmotic Laxative Start: 07-28-2023 17 g, Oral, D AILY, First dose on Mon07/28/23 at 1745, Until Discontinued, Post-op potassium chloride 10 meq extended release oral capsule (6 sources) Start: 07-28-2023 10 mEq, Oral, DAILY, First dose on Mon07/28/23 at 1745, Until Discontinued Do not crush or break. Post-op Start: 04-21-2023 End: 07-20-2023 take 1 tablet by mouth once daily potassium chloride (KLOR-CON) 10 MEQ extended release tablet Take 1 tablet by mouth daily 0 04/21/2023 Active sennosides, custodial 8.6 mg oral tablet (1 source) Start: 07-28-2023 take 1 tablet by mouth once daily as needed 8.6 mg (1 tablet), Oral, DAILY PRN, Starting on Mon07/28/23 at 1723, Until Discontinued, Constipation First line therapy for constipation Post-op 50 ml sodium chloride 9 mg/ml injection (6 sources) Start: 07-30-2023 End: 07-30-2023 sodium chloride 0.9 % bolus 250 mL Start: 07-28-2023 End: 07-28-2023 sodium chloride 0.9 % bolus 500 mL Start: 07-28-2023 take 1 dose intraven ously twice daily 5-40 mL, IntraVENous, EVERY 12 HOURS SCHEDULED (2 times per day), First dose on Mon07/28/23 at 2100, Until Discontinued For Line Patency: Peripheral IV = 5 mL; Midline or Central Line = 10 mL/lumen. If following IV push medication, administer flush at same rate as the IV push. Flush volume is determined by type of infusion therapy being given. For non-viscous solutions use: Peripheral IV = 5 mL Midline or Central Line = 10 mL/lumen For viscous solutions (i.e. blood components, parenteral nutrition, contrast media, or after obtaining blood sample) use: Peripheral IV = 10 mL Midline or Central Line = 20 mL/lumen Post-op Start: 07-28-2023 IntraVENous, a t 5-250 mL/hr, PRN, if patient receiving piggyback infusions and maintenance fluids are not ordered OR KVO fluids to protect IV site / prevent frequent line interruptions/ long duration, Starting on Mon07/28/23 at 1723 For piggyback infusion, administer at same rate as piggyback for a total of 25 mL. Enter 25 mL into dose field and piggyback rate into rate field of order. If piggyback is infusing at a rate less than 100 mL/hr, enter 25 mL into dose field and 100 mL/hr into rate field of order. For KVO fluids, enter rate of 20 mL/hr or less into rate field of order. Post-op Start: 07-28-2023 End: 07-31-2023 IntraVENous, at 100 mL/hr, CONTINUOUS, Starting on Mon07/28/23 at 1630, Post-op Start: 07-28-2023 take 5-40 mL intrave nously once as needed 5-40 mL, IntraVENous, PRN, Starting on Mon07/28/23 at 1723, Until Discontinued, Line Care, After every IV line use For Line Patency: Peripheral IV = 5 mL; Midline or Central Line = 10 mL/lumen. If following IV push medication, administer flush at same rate as the IV push. Flush volume is determined by type of infusion therapy being given. For non-viscous solutions use: Peripheral IV = 5 mL Midline or Central Line = 10 mL/lumen For viscous solutions (i.e. blood components, parenteral nutrition, contrast media, or after obtaining blood sample) use: Peripheral IV = 10 mL Midline or Central Line = 20 mL/lumen Post-op Problems Active Problems Problem Classification Problem Date Documented Da te Episodic/Chronic Diabetes mellitus without complication (13 sources) Type 2 diabetes mellitus without complications; Translations: [Type 2 diabetes mellitus] Onset: 07-19-2019 02-25-2022 Chronic Disorders of lipid metabolism (8 sources) Hyperlipidemia; Translations: [Other hyperlipidemia] Onset: 03-27-2019 03-27-2019 Chronic Essential hypertension (15 sources) Essential hypertension; Translations: [Essential (primary) hypertension] Onset: 03-27-2019 Resolved: 07-01-2022 03-27-2019 Chronic Nutritional deficiencies (4 sources) Vitamin D deficiency; Translations: [Vitamin D deficiency, unspecified] Onset: 02-25-2022 02-25-2022 Chronic Osteoarthritis (9 sources) Unilateral primary osteoarthritis, right knee; Translations: [Osteoarthritis of left knee joint] Onset: 11-22-2018 03-27-2019 Chronic Other connective tissue disease (1 source) Other muscle spasm; Translations: [OTHER MUSCLE SPASM] Onset: 10-19-2022 Episodic Other connective tissue disease (3 sources) Arthrodesis status; Translations: [Arthrodesis status] Onset: 09-22-2023 Episodic Other hereditary and degenerative nervous system conditions (4 sources) Myelopathy in diseases classified elsewhere; Translations: [Myelopathy in diseases classified elsewhere] Onset: 07-28-2023 Chronic Other lower respiratory disease (1 source) Cough Onset: 11-01-2023 Episodic Other nervous system disorders (1 source) Other chronic pain; Translations: [OTHER CHRONIC PAIN] Onset: 09-19-2022 Chronic Other nervous system disorders (1 source) Unspecified cord compression; Translations: [Unspecified cord compression] Onset: 05-15-2023 Chronic Other non-traumatic joint disorders (4 sources) Pain in right knee; Translations: [PAIN IN RIGHT KNEE] Onset: 08-09-2022 Episodic Other nutritional; endocrine; and metabolic disorders (4 sources) High density lipoprotein deficiency ; Translations: [Lipoprotein deficiency] Onset: 08-31-2017 02-25-2022 Chronic Other nutritional; endocrine; and metabolic disorders (4 sources) Obesity; Translations: [Obesity, unspecified] Onset: 04-12-2016 02-25-2022 Chronic Other nutritional; endocrine; and metabolic disorders (1 source) Body mass index (BMI) 31.0-31.9, adult; Translations: [Body mass index (BMI) 31.0-31.9, adult] Onset: 02-25-2022 Chronic Other nutritional; endocrine; and metabolic disorders (1 source) Other obesity due to excess calories; Translations: [Other obesity due to excess calories] Onset: 02-25-2022 Chronic Other nutritional; endocrine; and metabolic disorders (1 source) Body mass index (BMI) 32.0-32.9, adult; Translations: [Body mass index (BMI) 32.0-32.9, adult] Onset: 02-25-2022 Chronic Other nutritional; endocrine; and metabolic disorders (1 source) Body mass index (BMI) 33.0-33.9, adult; Translations: [Body mass index (BMI) 33.0-33.9, adult] Onset: 02-25-2022 Chronic Other nutritional; endocrine; and metabolic disorders (1 source) Weight loss Onset: 12-01-2023 Episodic Spondylosis; intervertebral disc disorders; other back problems (20 sources) Spondylosis without myelopathy or radiculopathy, lumbar region; Translations: [Spondylosis without myelopathy or radiculopathy, cervical region] Onset: 04-12-2016 Chronic Unclassified (4 sources) LOW BACK PAIN, UNSPECIFIED; Translations: [LOW BACK PAIN, UNSPECIFIED] Onset: 09-07-2022 Unclassified (1 source) Weight Check Onset: 12-28-2023 Unclassified (1 source) Acute cough; Translations: [Acute cough] Onset: 11-01-2023 Past or Other Problems Problem Classification Problem Date Documented Da te Episodic/Chronic Fluid and electrolyte disorders (4 sources) Hypokalemia; Translations: [Hypokalemia] Onset: 02-25-2022 02-25-2022 Episodic Mood disorders (4 sources) Mood disorders Onset: 03-30-2023 Resolved: 08-11-2023 03-30-2023 Other bone disease and musculoskeletal deformities (4 sources) Somatic dysfunction of thoracic region; Translations: [Segmental and somatic dysfunction of thoracic region] Onset: 09-01-2022 09-01-2022 Episodic Other bone disease and musculoskeletal deformities (1 source) Segmental and somatic dysfunction of thoracic region; Translations: [Segmental and somatic dysfunction of thoracic region] Onset: 09-01-2022 Episodic Other non-traumatic joint disorders (8 sources) Pain in left knee; Translations: [Pain in joint, lower leg] Onset: 09-17-2018 09-17-2018 Episodic Other screening for suspected conditions (not mental disorders or infectious disease) (4 sources) Other specified abnormal findings of blood chemistry; Translations: [Other abnormal blood chemistry] Onset: 03-30-2023 03-30-2023 Episodic Screening and history of mental health and substance abuse codes (8 sources) Personal history of nicotine dependence; Translations: [Ex-smoker] Onset: 02-25-2022 Episodic Spondylosis; intervertebral disc disorders; other back problems (20 sources) Intervertebral disc disorders with radiculopathy, lumbar region; Translations: [Low back pain] Onset: 11-26-2018 02-25-2022 Episodic Unclassified (1 source) LOW BACK PAIN, UNSPECIFIED; Translations: [LOW BACK PAIN, UNSPECIFIED] Onset: 08-30-2022 Results Test Name Value Interpretation Reference Range Facility No Panel Informationon 11-28 1. Mild dextroscoliosis of the thoracolumbar junction with a Bowling angle of approximately 13 degrees. 2. Status post posterior fusion from C3 through T1 without hardware complication. 3. 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 [facility] RIS CONSOLIDATED EXAMINATION: TWO XRAY VIEWS SCOLIOSIS SERIES; XRAY VIEWS OF THE LUMBAR SPINE 11/27/2023 11:33 am; 11/27/2023 11:34 am COMPARISON: None. HISTORY: ORDERING SYSTEM PROVIDED HISTORY: Lumbar disc disease with radiculopathy TECHNOLOGIST PROVIDED HISTORY: scoliosis; ORDERING SYSTEM PROVIDED HISTORY: Lumbar disc disease with radiculopathy TECHNOLOGIST PROVIDED HISTORY: Standing lateral Flexion, Neutral, extension Include both femoral heads on neutral imaging evaluate for instability FINDINGS: 12 thoracic and 5 lumbar vertebrae. Mild dextroscoliosis of the thoracolumbar junction with a Bowling angle of approximately 13 degrees and apex at the L1 level. Normal alignment of the spine is otherwise maintained. Status post posterior fusion from C3 through T1 with bilateral vertical stabilization rods and pedicle screws. No hardware complication identified. The vertebral body heights are preserved. Moderate C5-6 and C6-7 degenerative disc disease. Mild multilevel degenerative disc disease in the thoracic spine. Multilevel degenerative disc disease in the lumbar spine most pronounced at L3-4 to a severe degree. No fracture or other acute osseous abnormality. The bilateral sacroiliac joints, pubic symphysis, and bilateral hips are intact. The paravertebral soft tissues are unremarkable. [facility] Blake Sneed MD - 11/29/2023 EXAMINATION: TWO XRAY VIEWS SCOLIOSIS SERIES; XRAY VIEWS OF THE LUMBAR SPINE 11/27/2023 11:33 am; 11/27/2023 11:34 am COMPARISON: None. HISTORY: ORDERING SYSTEM PROVIDED HISTORY: Lumbar disc disease with radiculopathy TECHNOLOGIST PROVIDED HISTORY: scoliosis; ORDERING SYSTEM PROVIDED HISTORY: Lumbar disc disease with radiculopathy TECHNOLOGIST PROVIDED HISTORY: Standing lateral Flexion, Neutral, extension Include both femoral heads on neutral imaging evaluate for instability FINDINGS: 12 thoracic and 5 lumbar vertebrae. Mild dextroscoliosis of the thoracolumbar junction with a Bowling angle of approximately 13 degrees and apex at the L1 level. Normal alignment of the spine is otherwise maintained. Status post posterior fusion from C3 through T1 with bilateral vertical stabilization rods and pedicle screws. No hardware complication identified. The vertebral body heights are preserved. Moderate C5-6 and C6-7 degenerative disc disease. Mild multilevel degenerative disc disease in the thoracic spine. Multilevel degenerative disc disease in the lumbar spine most pronounced at L3-4 to a severe degree. No fracture or other acute osseous abnormality. The bilateral sacroiliac joints, pubic symphysis, and bilateral hips are intact. The paravertebral soft tissues are unremarkable. IMPRESSION: 1. Mild dextroscoliosis of the thoracolumbar junction with a Bowling angle of approximately 13 degrees. 2. Status post posterior fusion from C3 through T1 without hardware complication. 3. 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 [facility] No Panel InformationOrdered By: Blake Hale on 11-29-2023 [facility] [employer] Work Phone: XR LUMBAR SPINE FLEXION AND EXTENSION ONLYon 11-29-2023 XR LUMBAR SPINE FLEXION AND EXTENSION ONLY EXAMINATION: TWO XRAY VIEWS SCOLIOSIS SERIES; XRAY VIEWS OF THE LUMBAR SPINE 11/27/2023 11:33 am; 11/27/2023 11:34 am COMPARISON: None. HISTORY: ORDERING SYSTEM PROVIDED HISTORY: Lumbar disc disease with radiculopathy TECHNOLOGIST PROVIDED HISTORY: scoliosis; ORDERING SYSTEM PROVIDED HISTORY: Lumbar disc disease with radiculopathy TECHNOLOGIST PROVIDED HISTORY: Standing lateral Flexion, Neutral, extension Include both femoral heads on neutral imaging evaluate for instability FINDINGS: 12 thoracic and 5 lumbar vertebrae. Mild dextroscoliosis of the thoracolumbar junction with a Bowling angle of approximately 13 degrees and apex at the L1 level. Normal alignment of the spine is otherwise maintained. Status post posterior fusion from C3 through T1 with bilateral vertical stabilization rods and pedicle screws. No hardware complication identified. The vertebral body heights are preserved. Moderate C5-6 and C6-7 degenerative disc disease. Mild multilevel degenerative disc disease in the thoracic spine. Multilevel degenerative disc disease in the lumbar spine most pronounced at L3-4 to a severe degree. No fracture or other acute osseous abnormality. The bilateral sacroiliac joints, pubic symphysis, and bilateral hips are intact. The paravertebral soft tissues are unremarkable. IMPRESSION: 1. Mild dextroscoliosis of the thoracolumbar junction with a Bowling angle of approximately 13 degrees. 2. Status post posterior fusion from C3 through T1 without hardware complication. 3. 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 Interpreted by: Blake Hale MD Signed by: Blake Hale MD 11/29/23 Final result Normal [facility] XR SPINE ENTIRE (2-3 VIEWS)o n 11-29-2023 XR SPINE ENTIRE (2-3 VIEWS) EXAMINATION: TWO XRAY VIEWS SCOLIOSIS SERIES; XRAY VIEWS OF THE LUMBAR SPINE 11/27/2023 11:33 am; 11/27/2023 11:34 am COMPARISON: None. HISTORY: ORDERING SYSTEM PROVIDED HISTORY: Lumbar disc disease with radiculopathy TECHNOLOGIST PROVIDED HISTORY: scoliosis; ORDERING SYSTEM PROVIDED HISTORY: Lumbar disc disease with radiculopathy TECHNOLOGIST PROVIDED HISTORY: Standing lateral Flexion, Neutral, extension Include both femoral heads on neutral imaging evaluate for instability FINDINGS: 12 thoracic and 5 lumbar vertebrae. Mild dextroscoliosis of the thoracolumbar junction with a Bowling angle of approximately 13 degrees and apex at the L1 level. Normal alignment of the spine is otherwise maintained. Status post posterior fusion from C3 through T1 with bilateral vertical stabilization rods and pedicle screws. No hardware complication identified. The vertebral body heights are preserved. Moderate C5-6 and C6-7 degenerative disc disease. Mild multilevel degenerative disc disease in the thoracic spine. Multilevel degenerative disc disease in the lumbar spine most pronounced at L3-4 to a severe degree. No fracture or other acute osseous abnormality. The bilateral sacroiliac joints, pubic symphysis, and bilateral hips are intact. The paravertebral soft tissues are unremarkable. IMPRESSION: 1. Mild dextroscoliosis of the thoracolumbar junction with a Bowling angle of approximately 13 degrees. 2. Status post posterior fusion from C3 through T1 without hardware complication. 3. 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 Interpreted by: Blake Hale MD Signed by: Blake Hale MD 11/29/23 Final result Normal [facility] No Panel Informationon 11-26 Radiology Study observation (narrative) [facility] XR CERVICAL SPINE (2-3 VIEWS )on 11-27-2023 XR CERVICAL SPINE (2-3 VIEWS) EXAMINATION: 3 XRAY VIEWS OF THE CERVICAL SPINE 11/23/2023 10:12 am COMPARISON: 09/22/2023. HISTORY: ORDERING SYSTEM PROVIDED HISTORY: 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) TECHNOLOGIST PROVIDED HISTORY: standing AP and lateral with swimmers view FINDINGS: There are postsurgical changes of posterior cervical spinal fusion between between C3 and T2. Surgical hardware is intact and unchanged. No acute fractures or dislocations are seen. There is multilevel degenerative disease. No acute fractures are seen. IMPRESSION: Postsurgical changes of posterior cervical spinal fusion between C3 and T2 with no acute abnormality. Multilevel degenerative disease throughout the cervical spine. Interpreted by: Martinez Kelly MD Signed by: Martinez Kelly MD 11/27/23 Final result Normal [facility] XR CERVICAL SPINE (2-3 VIEWS )on 09-24-2023 XR CERVICAL SPINE (2-3 VIEWS) EXAMINATION: 5 XRAY VIEWS OF THE CERVICAL SPINE 09/22/2023 3:15 pm COMPARISON: July 29, 2023 HISTORY: ORDERING SYSTEM PROVIDED HISTORY: 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) TECHNOLOGIST PROVIDED HISTORY: post-op cervical fusion FINDINGS: Stable surgical hardware fusing C3 through the upper thoracic spine. No hardware complication or failure. Alignment anatomic. Stable multilevel degenerative change. Prevertebral soft tissues unremarkable. IMPRESSION: Stable exam Interpreted by: Cortez Peralta DO Signed by: Cortez Peralta DO 09/24/23 Final result Normal [facility] Basic Metab w/rfx MGon 07-31 Anion gap [Moles/Vol] 11 mmol/L Normal 9-17 [facility] Comment on above: Performed By: #### T YS #### [address] [id number] Linux Developer: Kan Craig MD Calcium [Mass/Vol] 9.0 mg/dL Normal 8.6-10.4 [facility] Comment on above: Performed By: #### T YS #### [address] [id number] Linux Developer: Kan Craig MD Chloride [Moles/Vol] 98 mmol/L Normal 98-107 [facility] Comment on above: Performed By: #### T YS #### [address] [id number] Linux Developer: Kan Craig MD CO2 [Moles/Vol] 24 mmol/L Normal 20-31 [facility] Comment on above: Performed By: #### T YS #### [address] [address] Linux Developer: Kan Craig MD Creatinine [Mass/Vol] 0.6 mg/dL Low 0.7-1.2 [facility] Comment on above: Performed By: #### T YS #### [address] [address] Linux Developer: Kan Craig MD GFR/1.73 sq M.predicted among non-blacks MDRD (S/P/Bld) [Vol rate/Area] mL/min/{1.73_m2} Normal >60 [facility] Comment on above: Result Comment: These results are not intended for use in patients <18 years of age. eGFR results are calculated without a race factor using the 2020 CKD-EPI equation. Careful clinical correlation is recommended, particularly when comparing to results calculated using previous equations. The CKD-EPI equation is less accurate in patients with extremes of muscle mass, extra-renal metabolism of creatine, excessive creatine ingestion, or following therapy that affects renal tubular secretion. Performed By: #### T YS #### [facility] [address] [place] [id number] Linux Developer: Kan Craig MD Glucose [Mass/Vol] 155 mg/dL High 70-99 [facility] Comment on above: Performed By: #### T YS #### [facility] [address] [place] [id number] Linux Developer: Kan Craig MD Potassium [Moles/Vol] 3.7 mmol/L Normal 3.7-5.3 [facility] Comment on above: Performed By: #### T YS #### [facility] [address] [place] [id number] Linux Developer: Kan Craig MD Sodium [Moles/Vol] 133 mmol/L Low 135-144 [facility] Comment on above: Performed By: #### T YS #### [facility] [address] [place] [id number] Linux Developer: Kan Craig MD Urea nitrogen [Mass/Vol] 14 mg/dL Normal 8-23 [facility] Comment on above: Performed By: #### T YS #### [address] [id number] Linux Developer: Kan Craig MD Basic Metabolic Panel w/ Ref analisa to MGon 07-31-2023 Anion gap [Moles/Vol] 11 mmol/L 9 - 17 mmol/L [facility] Calcium [Mass/Vol] 9.0 mg/dL 8.6 - 10. 4 mg/dL [facility] Chloride [Moles/Vol] 98 mmol/L 98 - 10 7 mmol/L [facility] CO2 [Moles/Vol] 24 mmol/L 20 - 31 mmol/L [facility] Creatinine [Mass/Vol] 0.6 mg/dL Low 0.7 - 1.2 mg/dL [facility] GFR/1.73 sq M.predicted MDRD (S/P/Bld) [Vol rate/Area] - PINF [facility] Comment on above: These results are not intended for use in patients <18 years of age. eGFR results are calculated without a race factor using the 2020 CKD-EPI equation. Careful clinical correlation is recommended, particularly when comparing to results calculated using previous equations. The CKD-EPI equation is less accurate in patients with extremes of muscle mass, extra-renal metabolism of creatine, excessive creatine ingestion, or following therapy that affects renal tubular secretion. Glucose [Mass/Vol] 155 mg/dL High 70 - 99 mg/dL [facility] Potassium [Moles/Vol] 3.7 mmol/L 3.7 - 5.3 mmol/L [facility] Sodium [Moles/Vol] 133 mmol/L Low 135 - 144 mmol/L [facility] Urea nitrogen [Mass/Vol] 14 mg/dL 8 - 23 mg/dL [facility] CBC with Auto Differentialon 07-31-2023 Basophils (Bld) [#/Vol] 0.09 10*3/uL [facility] Basophils/100 WBC (Bld) 1 % 0 - 2 % [facility] Eosinophils (Bld) [#/Vol] 0.09 10*3/uL [facility] Eosinophils/100 WBC (Bld) 1 % 1 - 4 % [facility] Erythrocyte distribution width (RBC) [Ratio] 11.9 % 11.8 - 14.4 % [facility] Hematocrit (Bld) [Volume fraction] 45.5 % 40.7 - 50.3 % [facility] Hemoglobin (Bld) [Mass/Vol] 15.3 g/dL 13.0 - 17.0 g/dL [facility] Immature granulocytes (Bld) [#/Vol] [facility] Immature granulocytes/100 WBC (Bld) 0 % 0 [facility] Interpretation and review of laboratory results Abnormal [facility] Lymphocytes/100 WBC (Bld) 22 % Low 24 - 43 % [facility] Lymphocytes/100 WBC (Bld) 1.89 % [facility] MCH (RBC) [Entitic mass] 31.3 pg 25.2 - 33.5 pg [facility] MCHC (RBC) [Mass/Vol] 33.6 g/dL 28.4 - 34.8 g/dL [facility] MCV (RBC) [Entitic vol] 93.0 fL 82.6 - 102.9 fL [facility] Monocytes/100 WBC (Bld) 11 % 3 - 12 % [facility] Monocytes/100 WBC (Bld) 0.96 % [facility] Neutrophils/100 WBC (Bld) 65 % 36 - 65 % [facility] Nucleated RBC/100 WBC (Bld) [Ratio] 0.0 % 0.0 per 100 WBC [facility] Platelet mean volume (Bld) [Entitic vol] 10.6 fL 8.1 - 13.5 fL [facility] Platelets (Bld) [#/Vol] 234 10*3/uL [facility] RBC (Bld) [#/Vol] 4.89 10*6/uL 4.21 - 5.7 7 m/uL [facility] Segmented neutrophils/100 WBC (Bld) 5.57 % [facility] WBC other (Bld) [#/Vol] 8.6 [facility] CBC with Diffon 07-31-2023 Abs. Basophil 0.09 k/uL Normal 0.00-0.20 [facility] Comment on above: Performed By: #### T YS #### [facility] [place], [place] [id number] Linux Developer: Kan Craig MD Abs.Imm.Granulocyte <0.03 Normal 0.00-0.30 [facility] Comment on above: Performed By: #### T YS #### [address] [address] Linux Developer: Kan Craig MD Abs.Neutrophil (Seg) 5.57 k/uL Normal 1.50-8.10 [facility] Comment on above: Performed By: #### T YS #### [address] [address] Linux Developer: Kan Craig MD Basophils/100 WBC (Bld) 1 % Normal 0-2 [facility] Comment on above: Performed By: #### T YS #### [address] [address] Linux Developer: Kan Craig MD Eosinophils (Bld) [#/Vol] 0.09 10*3/uL Normal 0.00-0.44 [facility] Comment on above: Performed By: #### T YS #### [address] [address] Linux Developer: Kan Craig MD Eosinophils/100 WBC (Bld) 1 % Normal 1-4 [facility] Comment on above: Performed By: #### T YS #### [address] [address] Linux Developer: Kan Craig MD Erythrocyte distribution width (RBC) [Ratio] 11.9 % Normal 11.8-14.4 [facility] Comment on above: Performed By: #### T YS #### [address] [address] Linux Developer: Kan Craig MD Hematocrit (Bld) [Volume fraction] 45.5 % Normal 40.7-50.3 [facility] Comment on above: Performed By: #### T YS #### [address] [address] Linux Developer: Kan Craig MD Hemoglobin (Bld) [Mass/Vol] 15.3 g/dL Normal 13.0-17.0 [facility] Comment on above: Performed By: #### T YS #### [address] [address] Linux Developer: Kan Craig MD Immature granulocytes/100 WBC (Bld) 0 % Normal 0 [facility] Comment on above: Performed By: #### T YS #### [address] [address] Linux Developer: Kan Craig MD Lymphocytes (Bld) [#/Vol] 1.89 10*3/uL Normal 1.10-3.70 [facility] Comment on above: Performed By: #### T YS #### [place] [address] Linux Developer: Kan Craig MD Lymphocytes/100 WBC (Bld) 22 % Low 24-43 [facility] Comment on above: Performed By: #### T YS #### [address] [address] Linux Developer: Kan Craig MD MCH (RBC) [Entitic mass] 31.3 pg Normal 25.2-33.5 [facility] Comment on above: Performed By: #### T YS #### [place] [address] Linux Developer: Kan Craig MD MCHC (RBC) [Mass/Vol] 33.6 g/dL Normal 28.4-34.8 [facility] Comment on above: Performed By: #### T YS #### [address] [address] Linux Developer: Kan Craig MD MCV (RBC) [Entitic vol] 93.0 fL Normal 82.6-102.9 [facility] Comment on above: Performed By: #### T YS #### [address] [address] Linux Developer: Kan Craig MD Monocytes (Bld) [#/Vol] 0.96 10*3/uL Normal 0.10-1.20 [facility] Comment on above: Performed By: #### T YS #### [address] [address] Linux Developer: Kan Craig MD Monocytes/100 WBC (Bld) 11 % Normal 3-12 [facility] Comment on above: Performed By: #### T YS #### [address] [address] Linux Developer: Kan Craig MD Neutrophil (Seg) 65 % Normal 36-65 [facility] Comment on above: Performed By: #### T YS #### [address] [address] Linux Developer: Kan Craig MD NRBC Automated 0.0 per 100 WBC Normal 0.0 [facility] Comment on above: Performed By: #### T YS #### [address] [address] Linux Developer: Kan Craig MD Platelet mean volume (Bld) [Entitic vol] 10.6 fL Normal 8.1-13.5 [facility] Comment on above: Performed By: #### T YS #### [address] [address] Linux Developer: Kan Craig MD Platelets (Bld) [#/Vol] 234 10*3/uL Normal 138-453 [facility] Comment on above: Performed By: #### T YS #### [address] [address] Linux Developer: Kan Craig MD RBC (Bld) [#/Vol] 4.89 10*6/uL Normal 4.21-5.77 [facility] Comment on above: Performed By: #### T YS #### [address] [place] [address] Linux Developer: Kan Craig MD WBC (Bld) [#/Vol] 8.6 10*3/uL Normal 3.5-11.3 [facility] Comment on above: Performed By: #### T YS #### [address] [place] [address] Linux Developer: Kan Craig MD EKG 12 LeadOrdered By: Froilan Hartmann on 07-31-2023 Atrial Rate 114 BPM [employer] Phone: P [place] 48 degrees [employer] Phone: P-R Interval 168 ms [employer] Phone: Q-T Interval 316 ms [employer] Phone: QRS Duration 86 ms [employer] Phone: QTc Calculation (Bazett) 435 ms [employer] Phone: R [place] -37 degrees [employer] Phone: T [place] 37 degrees [employer] Phone: Ventricular Rate 114 BPM [facility] [email or web address] Work Phone: [employer] Phone: EKG 12 Leadon 07-31-2023 Sinus tachycardia Left axis deviation Low voltage QRS 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 rate has increased BY 44 BPM MHPN STFroilan Naylor MD - 07/31/2023 Sinus tachycardia Left axis deviation Low voltage QRS 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 rate has increased BY 44 BPM [facility] Glucose,Whole Bloodon 2023 Glucose [Mass/Vol] 177 mg/dL High 75-110 [facility] Glucose [Mass/Vol] 166 mg/dL High 75-110 [facility] Lipid Panelon 07-31-2023 Cholesterol [Mass/Vol] 141 mg/dL NINF - 200 mg/dL [facility] Comment on above: Cholesterol Guidelines: <200 Desirable 200-240 Borderline >240 Undesirable Cholesterol in HDL [Mass/Vol] 34 mg/dL Low 40 - PINF mg/dL [facility] Comment on above: HDL Guidelines: <40 Undesirable 40-59 Borderline >59 Desirable Cholesterol in LDL [Mass/Vol] 73 mg/dL 0 - 130 mg/dL [facility] Comment on above: LDL Guidelines: <100 Desirable 100-129 Near to/above Desirable 130-159 Borderline >159 Undesirable Direct (measured) LDL and calculated LDL are not interchangeable tests. Cholesterol.total/Chol esterol in HDL [Mass ratio] 4.1 {ratio} NINF - 5 [facility] Triglyceride [Mass/Vol] 169 mg/dL High NINF - 150 mg/dL [facility] Comment on above: Triglyceride Guidelines: <150 Desirable 150-199 Borderline 200-499 High >499 Very high Based on AHA Guidelines for fasting triglyceride, March 2012. Lipid Profileon 07-31-2023 Cholesterol [Mass/Vol] 141 mg/dL Normal <200 [facility] Comment on above: Result Comment: Cholesterol Guidelines: <200 Desirable 200-240 Borderline >240 Undesirable Performed By: #### T YS #### [address] [place], [place] [id number] Linux Developer: Kan Craig MD Cholesterol in HDL [Mass/Vol] 34 mg/dL Low >40 [facility] Comment on above: Result Comment: HDL Guidelines: <40 Undesirable 40-59 Borderline >59 Desirable Performed By: #### T YS #### [facility] [address] [place] [id number] Linux Developer: Kan Craig MD Cholesterol in LDL [Mass/Vol] 73 mg/dL Normal 0-130 [facility] Comment on above: Result Comment: LDL Guidelines: <100 Desirable 100-129 Near to/above Desirable 130-159 Borderline >159 Undesirable Direct (measured) LDL and calculated LDL are not interchangeable tests. Performed By: #### T YS #### [facility] [place], [place] [id number] Linux Developer: Kan Craig MD Cholesterol.total/Chol esterol in HDL [Mass ratio] 4.1 {ratio} Normal <5 [facility] Comment on above: Performed By: #### T YS #### [address] [place] [id number] Linux Developer: Kan Craig MD Triglyceride [Mass/Vol] 169 mg/dL High <150 [facility] Comment on above: Result Comment: Triglyceride Guidelines: <150 Desirable 150-199 Borderline 200-499 High >499 Very high Based on AHA Guidelines for fasting triglyceride, March 2012. Performed By: #### T YS #### [facility] [address] [place] [id number] Linux Developer: Kan Craig MD No Panel Informationon 07-31 Interpretation and review of laboratory results Abnormal [facility] [employer] [facility] [employer] POC Glucose Fingerstickon Glucose [Mass/Vol] 177 mg/dL High 75 - 110 mg/dL [facility] [employer] Interpretation and review of laboratory results Abnormal [facility] [employer] [facility] [employer] Glucose [Mass/Vol] 166 mg/dL High 75 - 110 mg/dL [facility] [employer] Interpretation and review of laboratory results Abnormal [facility] [employer] [facility] [employer] CT CHEST PULMONARY EMBOLISM W CONTRASTon 07-30-2023 CT CHEST PULMONARY EMBOLISM W CONTRAST EXAMINATION: CTA OF THE CHEST 07/30/2023 2:45 pm TECHNIQUE: CTA of the chest was performed after the administration of intravenous contrast. Multiplanar reformatted images are provided for review. MIP images are provided for review. Automated exposure control, iterative reconstruction, and/or weight based adjustment of the mA/kV was utilized to reduce the radiation dose to as low as reasonably achievable. COMPARISON: 07/27/2023 HISTORY: ORDERING SYSTEM PROVIDED HISTORY: tachycardic TECHNOLOGIST PROVIDED HISTORY: tachycardic Additional Contrast?->1 FINDINGS: Pulmonary Arteries: Pulmonary arteries are adequately opacified for evaluation. No evidence of intraluminal filling defect to suggest pulmonary embolism. Main pulmonary artery is normal in caliber. Mediastinum: No evidence of mediastinal lymphadenopathy. The heart and pericardium demonstrate no acute abnormality. There is no acute abnormality of the thoracic aorta. Three-vessel coronary artery calcification. Lungs/pleura: The lungs are without acute process. No focal consolidation or pulmonary edema. No evidence of pleural effusion or pneumothorax. Upper Abdomen: Limited images of the upper abdomen are unremarkable. Soft Tissues/Bones: No acute bone or soft tissue abnormality. IMPRESSION: 1. No evidence of pulmonary embolism or acute pulmonary abnormality. 2. Three-vessel coronary artery calcification. Interpreted by: Adan Hodges MD Signed by: Adan Hodges MD 07/30/23 Final result Normal [facility] 1. No evidence of pulmonary embolism or acute pulmonary abnormality. 2. Three-vessel coronary artery calcification. PN RIS CONSOLIDATED EXAMINATION: CTA OF THE CHEST 07/30/2023 2:45 pm TECHNIQUE: CTA of the chest was performed after the administration of intravenous contrast. Multiplanar reformatted images are provided for review. MIP images are provided for review. Automated exposure control, iterative reconstruction, and/or weight based adjustment of the mA/kV was utilized to reduce the radiation dose to as low as reasonably achievable. COMPARISON: 07/27/2023 HISTORY: ORDERING SYSTEM PROVIDED HISTORY: tachycardic TECHNOLOGIST PROVIDED HISTORY: tachycardic Additional Contrast?->1 FINDINGS: Pulmonary Arteries: Pulmonary arteries are adequately opacified for evaluation. No evidence of intraluminal filling defect to suggest pulmonary embolism. Main pulmonary artery is normal in caliber. Mediastinum: No evidence of mediastinal lymphadenopathy. The heart and pericardium demonstrate no acute abnormality. There is no acute abnormality of the thoracic aorta. Three-vessel coronary artery calcification. Lungs/pleura: The lungs are without acute process. No focal consolidation or pulmonary edema. No evidence of pleural effusion or pneumothorax. Upper Abdomen: Limited images of the upper abdomen are unremarkable. Soft Tissues/Bones: No acute bone or soft tissue abnormality. MHPN RIS CONSOLIDATED Adan Hodges MD - 07/30/2023 EXAMINATION: CTA OF THE CHEST 07/30/2023 2:45 pm TECHNIQUE: CTA of the chest was performed after the administration of intravenous contrast. Multiplanar reformatted images are provided for review. MIP images are provided for review. Automated exposure control, iterative reconstruction, and/or weight based adjustment of the mA/kV was utilized to reduce the radiation dose to as low as reasonably achievable. COMPARISON: 07/27/2023 HISTORY: ORDERING SYSTEM PROVIDED HISTORY: tachycardic TECHNOLOGIST PROVIDED HISTORY: tachycardic Additional Contrast?->1 FINDINGS: Pulmonary Arteries: Pulmonary arteries are adequately opacified for evaluation. No evidence of intraluminal filling defect to suggest pulmonary embolism. Main pulmonary artery is normal in caliber. Mediastinum: No evidence of mediastinal lymphadenopathy. The heart and pericardium demonstrate no acute abnormality. There is no acute abnormality of the thoracic aorta. Three-vessel coronary artery calcification. Lungs/pleura: The lungs are without acute process. No focal consolidation or pulmonary edema. No evidence of pleural effusion or pneumothorax. Upper Abdomen: Limited images of the upper abdomen are unremarkable. Soft Tissues/Bones: No acute bone or soft tissue abnormality. IMPRESSION: 1. No evidence of pulmonary embolism or acute pulmonary abnormality. 2. Three-vessel coronary artery calcification. [facility] Radiology Study observation (narrative) [facility] CT CHEST PULMONARY EMBOLISM W CONTRASTOrdered By: Adan Hodges on 07-30-2023 [facility] Work Phone: Glucose,Whole Bloodon 2023 Glucose [Mass/Vol] 167 mg/dL High 75-110 [facility] Glucose [Mass/Vol] 149 mg/dL High 75-110 [facility] Glucose [Mass/Vol] 153 mg/dL High 75-110 [facility] Glucose [Mass/Vol] 142 mg/dL High 75-110 [facility] Hemoglobin A1Con 07-30-2023 Average glucose Estimated from glycated hemoglobin (Bld) [Mass/Vol] 137 mg/dL [facility] Comment on above: The ADA and AACC rec ommend providing the estimated average glucose result to permit better patient understanding of their HBA1c result. HbA1c (Bld) [Mass fraction] 6.4 % High 4.0 - 6.0 % [facility] Interpretation and review of laboratory results Abnormal [facility] Glucose [Mass/Vol] 137 mg/dL Normal [facility] Comment on above: Result Comment: The ADA and AACC recommend providing the estimated average glucose result to permit better patient understanding of their HBA1c result. Performed By: #### B MPX, GLYHGB, CDP ####[facility] [id number] [place], [place] [id number] lab Director: Kan Craig MD HbA1c (Bld) [Mass fraction] 6.4 % High 4.0-6.0 [facility] Comment on above: Performed By: #### B MPX, GLYHGB, CDP ####[facility] [id number] [place], [place] [id number] lab Director: Kan Craig MD POC Glucose Fingerstickon Glucose [Mass/Vol] 167 mg/dL High 75 - 110 mg/dL [facility] Interpretation and review of laboratory results Abnormal [facility] Glucose [Mass/Vol] 149 mg/dL High 75 - 110 mg/dL [facility] Interpretation and review of laboratory results Abnormal [facility] Glucose [Mass/Vol] 153 mg/dL High 75 - 110 mg/dL [facility] Interpretation and review of laboratory results Abnormal [facility] Glucose [Mass/Vol] 142 mg/dL High 75 - 110 mg/dL [facility] Interpretation and review of laboratory results Abnormal [facility] Basic Metab w/rfx MGon 07-29 Anion gap [Moles/Vol] 11 mmol/L Normal 9-17 [facility] Comment on above: Performed By: #### T YS #### [facility] [address] [place] [address] Linux Developer: Kan Craig MD Calcium [Mass/Vol] 8.5 mg/dL Low 8.6-10.4 [facility] Comment on above: Performed By: #### T YS #### [address] [address] Linux Developer: Kan Craig MD Chloride [Moles/Vol] 105 mmol/L Normal 98-107 [facility] Comment on above: Performed By: #### T YS #### [address] [address] Linux Developer: Kan Craig MD CO2 [Moles/Vol] 21 mmol/L Normal 20-31 [facility] Comment on above: Performed By: #### T YS #### [address] [address] Linux Developer: Kan Craig MD Creatinine [Mass/Vol] 0.8 mg/dL Normal 0.7-1.2 [facility] Comment on above: Performed By: #### T YS #### [address] [address] Linux Developer: Kan Craig MD GFR/1.73 sq M.predicted among non-blacks MDRD (S/P/Bld) [Vol rate/Area] mL/min/{1.73_m2} Normal >60 [facility] Comment on above: Result Comment: These results are not intended for use in patients <18 years of age. eGFR results are calculated without a race factor using the 2020 CKD-EPI equation. Careful clinical correlation is recommended, particularly when comparing to results calculated using previous equations. The CKD-EPI equation is less accurate in patients with extremes of muscle mass, extra-renal metabolism of creatine, excessive creatine ingestion, or following therapy that affects renal tubular secretion. Performed By: #### T YS #### [address] [address] Linux Developer: Kan Craig MD Glucose [Mass/Vol] 146 mg/dL High 70-99 [facility] Comment on above: Performed By: #### T YS #### [facility] [place] [address] Linux Developer: Kan Craig MD Potassium [Moles/Vol] 4.4 mmol/L Normal 3.7-5.3 [facility] Comment on above: Performed By: #### T YS #### [facility] [place] [address] Linux Developer: Kan Craig MD Sodium [Moles/Vol] 137 mmol/L Normal 135-144 [facility] Comment on above: Performed By: #### T YS #### [facility] [address] [place] [id number] Linux Developer: Kan Craig MD Urea nitrogen [Mass/Vol] 14 mg/dL Normal 8-23 [facility] Comment on above: Performed By: #### T YS #### [facility] [address] [place] [address] Linux Developer: Kan Craig MD Basic Metabolic Panel w/ Ref analisa to MGon 07-29-2023 Anion gap [Moles/Vol] 11 mmol/L 9 - 17 mmol/L [facility] Calcium [Mass/Vol] 8.5 mg/dL Low 8.6 - 10. 4 mg/dL [facility] Chloride [Moles/Vol] 105 mmol/L 98 - 10 7 mmol/L [facility] CO2 [Moles/Vol] 21 mmol/L 20 - 31 mmol/L [facility] Creatinine [Mass/Vol] 0.8 mg/dL 0.7 - 1.2 mg/dL [facility] GFR/1.73 sq M.predicted MDRD (S/P/Bld) [Vol rate/Area] - PINF [facility] [employer] Comment on above: These results are not intended for use in patients <18 years of age. eGFR results are calculated without a race factor using the 2020 CKD-EPI equation. Careful clinical correlation is recommended, particularly when comparing to results calculated using previous equations. The CKD-EPI equation is less accurate in patients with extremes of muscle mass, extra-renal metabolism of creatine, excessive creatine ingestion, or following therapy that affects renal tubular secretion. Glucose [Mass/Vol] 146 mg/dL High 70 - 99 mg/dL [facility] Interpretation and review of laboratory results Abnormal [facility] Potassium [Moles/Vol] 4.4 mmol/L 3.7 - 5.3 mmol/L [facility] Sodium [Moles/Vol] 137 mmol/L 135 - 144 mmol/L [facility] Urea nitrogen [Mass/Vol] 14 mg/dL 8 - 23 mg/dL [facility] CBC with Auto Differentialon 07-29-2023 Basophils (Bld) [#/Vol] 0.06 10*3/uL [facility] Basophils/100 WBC (Bld) 1 % 0 - 2 % [facility] Eosinophils (Bld) [#/Vol] [facility] Eosinophils/100 WBC (Bld) 0 % Low 1 - 4 % [facility] Erythrocyte distribution width (RBC) [Ratio] 12.2 % 11.8 - 14.4 % [facility] Hematocrit (Bld) [Volume fraction] 46.7 % 40.7 - 50.3 % [facility] Hemoglobin (Bld) [Mass/Vol] 15.5 g/dL 13.0 - 17.0 g/dL [facility] Immature granulocytes (Bld) [#/Vol] 0.05 10*3/uL [facility] Immature granulocytes/100 WBC (Bld) 0 % 0 [facility] Interpretation and review of laboratory results Abnormal [facility] Lymphocytes/100 WBC (Bld) 16 % Low 24 - 43 % [facility] Lymphocytes/100 WBC (Bld) 1.94 % [facility] MCH (RBC) [Entitic mass] 31.4 pg 25.2 - 33.5 pg [facility] MCHC (RBC) [Mass/Vol] 33.2 g/dL 28.4 - 34.8 g/dL [facility] [employer]umble MCV (RBC) [Entitic vol] 94.7 fL 82.6 - 102.9 fL [facility] SECJ[facility]Y HEALTH Monocytes/100 WBC (Bld) 10 % 3 - 12 % [facility]CC[employer] [facility] Monocytes/100 WBC (Bld) 1.24 % High [facility] Neutrophils/100 WBC (Bld) 73 % High 36 - 65 % [facility] Nucleated RBC/100 WBC (Bld) [Ratio] 0.0 % 0.0 per 100 WBC [facility] Platelet mean volume (Bld) [Entitic vol] 10.8 fL 8.1 - 13.5 fL [facility] SECCode Scouts [facility] Platelets (Bld) [#/Vol] 243 10*3/uL [facility] RBC (Bld) [#/Vol] 4.93 10*6/uL 4.21 - 5.7 7 m/uL [facility] Segmented neutrophils/100 WBC (Bld) 8.89 % High [facility] WBC other (Bld) [#/Vol] 12.2 High [facility] CBC with Diffon 07-29-2023 Abs. Basophil 0.06 k/uL Normal 0.00-0.20 [facility] Comment on above: Performed By: #### T YS #### [employer] [address] [place] [address] Linux Developer: Kan Craig MD Abs. Eosinophil <0.03 Normal 0.00-0.44 [facility] Comment on above: Performed By: #### T YS #### [facility] [address] [place] [id number] Linux Developer: Kan Craig MD Abs.Imm.Granulocyte 0.05 k/uL Normal 0.00-0.30 [facility] Comment on above: Performed By: #### T YS #### [facility] [address] [place], [place] [id number] Linux Developer: Kan Craig MD Abs.Neutrophil (Seg) 8.89 k/uL High 1.50-8.10 [facility] Comment on above: Performed By: #### T YS #### [address] [address] Linux Developer: Kan Craig MD Basophils/100 WBC (Bld) 1 % Normal 0-2 [facility] Comment on above: Performed By: #### T YS #### [address] [address] Linux Developer: Kan Craig MD Eosinophils/100 WBC (Bld) 0 % Low 1-4 [facility] Comment on above: Performed By: #### T YS #### [address] [address] Linux Developer: Kan Craig MD Erythrocyte distribution width (RBC) [Ratio] 12.2 % Normal 11.8-14.4 [facility] Comment on above: Performed By: #### T YS #### [address] [address] Linux Developer: Kan Craig MD Hematocrit (Bld) [Volume fraction] 46.7 % Normal 40.7-50.3 [facility] Comment on above: Performed By: #### T YS #### [address] [address] Linux Developer: Kan Craig MD Hemoglobin (Bld) [Mass/Vol] 15.5 g/dL Normal 13.0-17.0 [facility] Comment on above: Performed By: #### T YS #### [address] [address] Linux Developer: Kan Craig MD Immature granulocytes/100 WBC (Bld) 0 % Normal 0 [facility] Comment on above: Performed By: #### T YS #### [address] [address] Linux Developer: Kan Craig MD Lymphocytes (Bld) [#/Vol] 1.94 10*3/uL Normal 1.10-3.70 [facility] Comment on above: Performed By: #### T YS #### [address] [address] Linux Developer: Kan Craig MD Lymphocytes/100 WBC (Bld) 16 % Low 24-43 [facility] Comment on above: Performed By: #### T YS #### [address] [address] Linux Developer: Kan Craig MD MCH (RBC) [Entitic mass] 31.4 pg Normal 25.2-33.5 [facility] Comment on above: Performed By: #### T YS #### [address] [address] Linux Developer: Kan Craig MD MCHC (RBC) [Mass/Vol] 33.2 g/dL Normal 28.4-34.8 [facility] Comment on above: Performed By: #### T YS #### [address] [address] Linux Developer: Kan Craig MD MCV (RBC) [Entitic vol] 94.7 fL Normal 82.6-102.9 [facility] Comment on above: Performed By: #### T YS #### [address] [address] Linux Developer: Kan Craig MD Monocytes (Bld) [#/Vol] 1.24 10*3/uL High 0.10-1.20 [facility] Comment on above: Performed By: #### T YS #### [address] [address] Linux Developer: Kan Craig MD Monocytes/100 WBC (Bld) 10 % Normal 3-12 [facility] Comment on above: Performed By: #### T YS #### [address] [address] Linux Developer: Kan Craig MD Neutrophil (Seg) 73 % High 36-65 [facility] Comment on above: Performed By: #### T YS #### [address] [address] Linux Developer: Kan Craig MD NRBC Automated 0.0 per 100 WBC Normal 0.0 [facility] Comment on above: Performed By: #### T YS #### [address] [address] Linux Developer: Kan Craig MD Platelet mean volume (Bld) [Entitic vol] 10.8 fL Normal 8.1-13.5 [facility] Comment on above: Performed By: #### T YS #### [address] [address] Linux Developer: Kan Craig MD Platelets (Bld) [#/Vol] 243 10*3/uL Normal 138-453 [facility] Comment on above: Performed By: #### T YS #### [address] [address] Linux Developer: Kan Craig MD RBC (Bld) [#/Vol] 4.93 10*6/uL Normal 4.21-5.77 [facility] Comment on above: Performed By: #### T YS #### [address] [address] Linux Developer: Kan Craig MD WBC (Bld) [#/Vol] 12.2 10*3/uL High 3.5-11.3 [facility] Comment on above: Performed By: #### T YS #### [address] [address] Linux Developer: Kan Craig MD Glucose,Whole Bloodon 2023 Glucose [Mass/Vol] 151 mg/dL High 75-110 [facility] Glucose [Mass/Vol] 174 mg/dL High 75-110 [facility] Glucose [Mass/Vol] 166 mg/dL High 75-110 [facility] Glucose [Mass/Vol] 139 mg/dL High 75-110 [facility] No Panel Informationon 07-29 Radiology Study observation (narrative) [facility] POC Glucose Fingerstickon Glucose [Mass/Vol] 151 mg/dL High 75 - 110 mg/dL [facility] Interpretation and review of laboratory results Abnormal [facility] Glucose [Mass/Vol] 174 mg/dL High 75 - 110 mg/dL [facility] Interpretation and review of laboratory results Abnormal [facility] Glucose [Mass/Vol] 166 mg/dL High 75 - 110 mg/dL [facility] Interpretation and review of laboratory results Abnormal [facility] Glucose [Mass/Vol] 139 mg/dL High 75 - 110 mg/dL [facility] Interpretation and review of laboratory results Abnormal [facility] Portable XR Chest AP single viewon 07-29-2023 No radiographic evidence of acute cardiopulmonary process. Postop findings. PN RIS CONSOLIDATED EXAMINATION: ONE XRAY VIEW OF THE CHEST 07/29/2023 10:57 am COMPARISON: CT chest from 07/27/2023. HISTORY: ORDERING SYSTEM PROVIDED HISTORY: resp eval; postop TECHNOLOGIST PROVIDED HISTORY: resp eval; postop FINDINGS: Overlying ECG monitor leads and neck collar; cervical nina and hardware. Cardiomediastinal shadow unchanged. Lungs/cp angles clear. Probable slight left basilar atelectasis. No consolidation or sizable pleural effusion. Bones unchanged. [facility] RIS CONSOLIDATED Johan Douglas MD - 07/29/2023 EXAMINATION: ONE XRAY VIEW OF THE CHEST 07/29/2023 10:57 am COMPARISON: CT chest from 07/27/2023. HISTORY: ORDERING SYSTEM PROVIDED HISTORY: resp eval; postop TECHNOLOGIST PROVIDED HISTORY: resp eval; postop FINDINGS: Overlying ECG monitor leads and neck collar; cervical nina and hardware. Cardiomediastinal shadow unchanged. Lungs/cp angles clear. Probable slight left basilar atelectasis. No consolidation or sizable pleural effusion. Bones unchanged. IMPRESSION: No radiographic evidence of acute cardiopulmonary process. Postop findings. [facility] [employer] Portable XR Chest AP single viewOrdered By: Johan Douglas on 07-29-2023 [facility] [employer] Work Phone: XR CERVICAL SPINE (2-3 VIEWS )on 07-29-2023 XR CERVICAL SPINE (2-3 VIEWS) EXAMINATION: 3 XRAY VIEWS OF THE CERVICAL SPINE 07/29/2023 10:57 am COMPARISON: CT cervical spine from 06/07/2023 HISTORY: ORDERING SYSTEM PROVIDED HISTORY: followup postop; UPR[employer] AP AND LATERAL TECHNOLOGIST PROVIDED HISTORY: followup postop; UPRIGHT/ LATERAL/swimmer's view followup postop; UPRIGHT AP AND LATERAL 63-year-old male; follow-up postop FINDINGS: Cervical spinal fusion hardware is seen extending from the C3 vertebral body level to the upper thoracic spine, possibly T2-T3 level. Inter pedicular screws are seen extending into the C3 through C7 levels. No prevertebral soft tissue swelling. Moderate disc space narrowing and mild hypertrophic osteophyte spur formation at C5-C6 and C6-C7. Skin nina along the posterior midline. IMPRESSION: Findings consistent with cervicothoracic spinal fusion and postoperative changes as detailed above. Underlying degenerative changes in the cervical spine. Interpreted by: See Watt MD Signed by: See Watt MD 07/29/23 Final result Normal [facility] XR CHEST PORTABLEon 07-29-19 XR CHEST PORTABLE EXAMINATION: ONE XRAY VIEW OF THE CHEST 07/29/2023 10:57 am COMPARISON: CT chest from 07/27/2023. HISTORY: ORDERING SYSTEM PROVIDED HISTORY: resp eval; postop TECHNOLOGIST PROVIDED HISTORY: resp eval; postop FINDINGS: Overlying ECG monitor leads and neck collar; cervical nina and hardware. Cardiomediastinal shadow unchanged. Lungs/cp angles clear. Probable slight left basilar atelectasis. No consolidation or sizable pleural effusion. Bones unchanged. IMPRESSION: No radiographic evidence of acute cardiopulmonary process. Postop findings. Interpreted by: Johan Douglas MD Signed by: Johan Douglas MD 07/29/23 Final result Normal [facility] XR Cervical spine 2 or 3 Vie wson 07-29-2023 Findings consistent with cervicothoracic spinal fusion and postoperative changes as detailed above. Underlying degenerative changes in the cervical spine. [facility] CONSOLIDATED EXAMINATION: 3 XRAY VIEWS OF THE CERVICAL SPINE 07/29/2023 10:57 am COMPARISON: CT cervical spine from 06/07/2023 HISTORY: ORDERING SYSTEM PROVIDED HISTORY: followup postop; UPRIGHT AP AND LATERAL TECHNOLOGIST PROVIDED HISTORY: followup postop; UPRIGHT/ LATERAL/swimmer's view followup postop; UPRIGHT AP AND LATERAL 63-year-old male; follow-up postop FINDINGS: Cervical spinal fusion hardware is seen extending from the C3 vertebral body level to the upper thoracic spine, possibly T2-T3 level. Inter pedicular screws are seen extending into the C3 through C7 levels. No prevertebral soft tissue swelling. Moderate disc space narrowing and mild hypertrophic osteophyte spur formation at C5-C6 and C6-C7. Skin nina along the posterior midline. [facility] CONSOLIDATED See Watt MD - 07/29/2023 EXAMINATION: 3 XRAY VIEWS OF THE CERVICAL SPINE 07/29/2023 10:57 am COMPARISON: CT cervical spine from 06/07/2023 HISTORY: ORDERING SYSTEM PROVIDED HISTORY: followup postop; UPRIGHT AP AND LATERAL TECHNOLOGIST PROVIDED HISTORY: followup postop; UPRIGHT/ LATERAL/swimmer's view followup postop; UPRIGHT AP AND LATERAL 63-year-old male; follow-up postop FINDINGS: Cervical spinal fusion hardware is seen extending from the C3 vertebral body level to the upper thoracic spine, possibly T2-T3 level. Inter pedicular screws are seen extending into the C3 through C7 levels. No prevertebral soft tissue swelling. Moderate disc space narrowing and mild hypertrophic osteophyte spur formation at C5-C6 and C6-C7. Skin nina along the posterior midline. IMPRESSION: Findings consistent with cervicothoracic spinal fusion and postoperative changes as detailed above. Underlying degenerative changes in the cervical spine. [facility] [employer] XR Cervical spine 2 or 3 Vie wsOrdered By: See Watt on 07-29-2023 [facility] [employer] Work Phone: Calcium, Ionicon 07-28-2023 Calcium [Moles/Vol] 1.30 mmol/L Normal 1.13-1.33 [facility] Comment on above: Performed By: #### O HP, IOCAL ####[facility] [address] [place] [address] lab Director: Kan Craig MD Calcium [Moles/Vol] 1.43 mmol/L High 1.13-1.33 [facility] Comment on above: Performed By: #### O HP, IOCAL, LACTIC ####[facility] [address] [place], [place] [id number] lab Director: Kan Craig MD Calcium [Moles/Vol] 1.03 mmol/L Low 1.13-1.33 [facility] Comment on above: Performed By: #### I OCAL, OHP ####[facility] [address] [place] [address] Lab Director: Kan Craig MD Calcium, Ionizedon Calcium.ionized (Bld) [Moles/Vol] 1.30 mmol/L 1.13 - 1.33 mmol/L [facility] [employer] Calcium.ionized (Bld) [Moles/Vol] 1.43 mmol/L High 1.13 - 1.33 mmol/L [facility] [employer] Calcium.ionized (Bld) [Moles/Vol] 1.03 mmol/L Low 1.13 - 1.33 mmol/L [facility] FLUORO FOR SURGICAL PROCEDUR ESon 07-28-2023 FLUORO FOR SURGICAL PROCEDURES Radiology exam is complete. No Radiologist dictation. Please follow up with ordering provider. Final result Normal [facility] FLUORO FOR SURGICAL PROCEDURES Radiology exam is complete. No Radiologist dictation. Please follow up with ordering provider. Final result Normal [facility] Glucose (POC)on 07-28-2023 Glucose [Mass/Vol] 156 mg/dL High 74-100 [facility] Glucose,Whole Bloodon 2023 Glucose [Mass/Vol] 209 mg/dL High 75-110 [facility] Glucose [Mass/Vol] 200 mg/dL High 75-110 [facility] Glucose [Mass/Vol] 195 mg/dL High 75-110 [facility] Guidance-- during surgeryon 07-28-2023 Radiology exam is complete. No Radiologist dictation. Please follow up with ordering provider. [facility] Radiology exam is complete. No Radiologist dictation. Please follow up with ordering provider. [facility] Lactic Acidon 07-28-2023 Lactic Acid, Whole Blood 1.7 mmol/L 0.7 - 2.1 mmol/L [facility] Lactic Acid,Whole Bl 1.7 mmol/L Normal 0.7-2.1 [facility] Comment on above: Performed By: #### O HP, IOCAL, LACTIC ####[facility] [address] [place] [address] [facility] Director: Kan Craig MD No Panel Informationon 07-28 [facility] Interpretation and review of laboratory results Abnormal [facility] Interpretation and review of laboratory results Abnormal [facility] OPEN HEART PANELon Arterial patency Wrist artery --pre arterial puncture INFORMATION NOT PROVIDED [facility] Carboxyhemoglobin (Bld) [Mass fraction] 1.3 % 0 - 5 % [facility] [employer] Comment on above: Reference Range: Non-Smokers 0-2% Average Smoker 2-4% Heavy Smoker <10% Chloride [Moles/Vol] 108 mmol/L 98 - 11 0 mmol/L [employer] [facility] [employer] Glucose [Mass/Vol] 206 mg/dL High 75 - 110 mg/dL [facility] [employer] HCO3 (Bld) [Moles/Vol] 22.1 mmol/L 22 - 27 mmol/L [facility] Hematocrit (Bld) [Volume fraction] 47.0 % 40.7 - 50.3 % [facility] Hemoglobin (Bld) [Mass/Vol] 15.4 g/dL [facility] Interpretation and review of laboratory results Abnormal [facility] Negative Base Excess, Art 2.7 mmol/L High 0.0 - 2.0 mmol/L [facility] Oxygen saturation in Blood 98.7 % 94 - 100 % [facility] Oxygen/Inspired gas Respiratory system --on ventilator 70 [facility] pCO2, Art, Temp Adj 36.5 32 - 45 [facility] pCO2, Arterial 40.2 [facility] pH, Art, Temp Adj 7.388 7.350 - 7.450 [facility] pH, Arterial 7.359 7.350 - 7.450 [facility] pO2, Art, Temp Adj 295.0 High [facility] pO2, Arterial 305.0 High [facility] Potassium [Moles/Vol] 4.0 mmol/L 3.6 - 5.0 mmol/L [facility] Sodium [Moles/Vol] 137 mmol/L 136 - 145 mmol/L [facility] Arterial patency Wrist artery --pre arterial puncture INFORMATION NOT PROVIDED [facility] Carboxyhemoglobin (Bld) [Mass fraction] 0.2 % 0 - 5 % [facility] Comment on above: Reference Range: Non-Smokers 0-2% Average Smoker 2-4% Heavy Smoker <10% Negative Base Excess, Art 3.3 mmol/L High 0.0 - 2.0 mmol/L [facility] Oxygen/Inspired gas Respiratory system --on ventilator 70% [facility] pCO2, Arterial 44.0 [facility] pH, Arterial 7.326 Low 7.350 - 7.450 [facility] pO2, Arterial 301.0 High [facility] Arterial patency Wrist artery --pre arterial puncture INFORMATION NOT PROVIDED [facility] Carboxyhemoglobin (Bld) [Mass fraction] 1.1 % 0 - 5 % [facility] Comment on above: Reference Range: Non-Smokers 0-2% Average Smoker 2-4% Heavy Smoker <10% Chloride [Moles/Vol] 116 mmol/L High 98 - 11 0 mmol/L [facility] Glucose [Mass/Vol] 150 mg/dL High 75 - 110 mg/dL [facility] HCO3 (Bld) [Moles/Vol] 19.7 mmol/L Low 22 - 27 mmol/L [facility] Hematocrit (Bld) [Volume fraction] 44.5 % 40.7 - 50.3 % [facility] Hemoglobin (Bld) [Mass/Vol] 14.5 g/dL [facility] Negative Base Excess, Art 5.1 mmol/L High 0.0 - 2.0 mmol/L [facility] Oxygen saturation in Blood 98.6 % 94 - 100 % [facility] Oxygen/Inspired gas Respiratory system --on ventilator 70 [facility] pCO2, Arterial 37.6 [facility] pH, Arterial 7.338 Low 7.350 - 7.450 [facility] pO2, Arterial 281.0 High [facility] Potassium [Moles/Vol] 2.9 mmol/L Critically low 3.6 - 5.0 mmol/L [facility] Sodium [Moles/Vol] 140 mmol/L 136 - 145 mmol/L [facility] Open Heart Panelon 4 Gabriel Test INFORMATION NOT PROVIDED Normal [facility] Comment on above: Performed By: #### O HP, IOCAL ####[facility] [address] [place] [address] Lab Director: Kan Craig MD Performed By: #### O HP, IOCAL, LACTIC ####[facility] [address] [place], [place] [id number] Lab Director: Kan Craig MD Body Temp. 35.0 Normal [facility] Comment on above: Performed By: #### O HP, IOCAL ####[facility] [address] [place], [place] [id number] Lab Director: Kan Craig MD Carboxy Hgb 1.3 % Normal 0-5 [facility] Comment on above: Result Comment: Reference Range: Non-Smokers 0-2% Average Smoker 2-4% Heavy Smoker <10% Performed By: #### O HP, IOCAL ####[facility] [address] [place], [place] [id number])[phone] Director: Kan Craig MD Chloride [Moles/Vol] 108 mmol/L Normal 98-110 [facility] Comment on above: Performed By: #### O HP, IOCAL ####[facility] [address] [place], [place] [id number])[phone] Director: Kan Craig MD FIO2 70 Normal [facility] Comment on above: Performed By: #### O HP, IOCAL ####[facility] [address] [place], [place] [id number])[phone] Director: Kan Craig MD Glucose [Mass/Vol] 206 mg/dL High 75-110 [facility] Comment on above: Performed By: #### O HP, IOCAL ####[facility] [address] [place], [place] [id number])[phone] Director: Kan Craig MD HCO3 (Bld) [Moles/Vol] 22.1 mmol/L Normal 22-27 [facility] Comment on above: Performed By: #### O HP, IOCAL ####[facility] [address] [place], [place] [phone] Director: Kan Craig MD Hematocrit (Bld) [Volume fraction] 47.0 % Normal 40.7-50.3 [facility] Comment on above: Performed By: #### O HP, IOCAL ####[facility] [address] [place], [place] [phone] Director: Kan Craig MD Hemoglobin (Bld) [Mass/Vol] 15.4 g/dL Normal 13.0-17.0 [facility] Comment on above: Performed By: #### O HP, IOCAL ####[facility] [address] [place], [place] [phone] Director: Kan Craig MD Negative Base Excess 2.7 mmol/L High 0.0-2.0 [facility] Comment on above: Performed By: #### O HP, IOCAL ####[facility] [address] [place] [address] Lab Director: Kan Craig MD Oxygen (Bld) [Partial pressure] 305.0 mm[Hg] High 75-95 [facility] Comment on above: Performed By: #### O HP, IOCAL ####[facility] [address] [place] [address] Lab Director: Kan Craig MD Oxygen saturation in Blood 98.7 % Normal 94-100 [facility] Comment on above: Performed By: #### O HP, IOCAL ####[facility] [address] [place] [address] Lab Director: Kan Craig MD pCO2 40.2 mmHg Normal 32-45 [facility] Comment on above: Performed By: #### O HP, IOCAL ####[facility] [address] [place] [address] Lab Director: Kan Craig MD pCO2 Adj'd for Temp 36.5 Normal 32-45 [facility] Comment on above: Performed By: #### O HP, IOCAL ####[facility] [address] [place] [address] Lab Director: Kan Craig MD pH (Bld) 7.359 [pH] Normal 7.350-7.450 [facility] Comment on above: Performed By: #### O HP, IOCAL ####[facility] [address] [place] [address] Lab Director: Kan Craig MD pH Adjst'd for Temp. 7.388 Normal 7.350-7.450 [facility] Comment on above: Performed By: #### O HP, IOCAL ####[facility] [address] [place], [place] [phone] Director: Kan Craig MD pO2 Adjst'd for Temp 295.0 mmHg High 75-95 [facility] Comment on above: Performed By: #### O HP, IOCAL ####[facility] [address] [place], [place] [address])[phone] Director: Kan Craig MD Potassium [Moles/Vol] 4.0 mmol/L Normal 3.6-5.0 [facility] Comment on above: Performed By: #### O HP, IOCAL ####[facility] [address] [place] [address])[phone] Director: Kan Craig MD Sodium [Moles/Vol] 137 mmol/L Normal 136-145 [facility] Comment on above: Performed By: #### O HP, IOCAL ####[facility] [address] [place], [place] [address])[phone] Director: Kan Craig MD Chloride [Moles/Vol] 111 mmol/L High 98-110 [facility] Comment on above: Performed By: #### O HP, IOCAL, LACTIC ####[facility] [address] [place], [place] [address])[phone] Director: Kan Craig MD Glucose [Mass/Vol] 165 mg/dL High 75-[address] [facility] Comment on above: Performed By: #### O HP, IOCAL, LACTIC ####[facility] [address] [place], [place] [phone] Director: Kan Craig MD HCO3 (Bld) [Moles/Vol] 22.3 mmol/L Normal 22-27 B ON [facility] Comment on above: Performed By: #### O HP, IOCAL, LACTIC ####[facility] [address] [place] [address] Lab Director: Kan Craig MD Hematocrit (Bld) [Volume fraction] 47.3 % Normal 40.7-50.3 [facility] Comment on above: Performed By: #### O HP, IOCAL, LACTIC ####[facility] [address] [place], [place] [phone] Director: Kan Craig MD Hemoglobin (Bld) [Mass/Vol] 15.4 g/dL Normal 13.0-17.0 [facility] Comment on above: Performed By: #### O HP, IOCAL, LACTIC ####[facility] [address] [place] [address] [phone])[phone] Director: Kan Craig MD Oxygen saturation in Blood 98.3 % Normal 94-100 [facility] Comment on above: Performed By: #### O HP, IOCAL, LACTIC ####[facility] [address] [place] [address] [id number])[phone] Director: Kan Craig MD Potassium [Moles/Vol] 3.6 mmol/L Normal 3.6-5.0 [facility] Comment on above: Performed By: #### O HP, IOCAL, LACTIC ####[facility] [address] [place] [address] Lab Director: Kan Craig MD Sodium [Moles/Vol] 141 mmol/L Normal 136-145 [facility] Comment on above: Performed By: #### O HP, IOCAL, LACTIC ####[facility] [address] [place], [place] [phone])[phone] Director: Kan Craig MD Carboxy Hgb 0.2 % Normal 0-5 [facility] Comment on above: Result Comment: Reference Range: Non-Smokers 0-2% Average Smoker 2-4% Heavy Smoker <10% Performed By: #### O HP, IOCAL, LACTIC ####[facility] [address] [place], [place] [phone])[phone] Director: Kan Craig MD FIO2 70% Normal [facility] Comment on above: Performed By: #### O HP, IOCAL, LACTIC ####[facility] [address] [place], [place] [id number])[phone] Director: Kan Craig MD Negative Base Excess 3.3 mmol/L High 0.0-2.0 [facility] Comment on above: Performed By: #### O HP, IOCAL, LACTIC ####[facility] [address] [place], [place] [id number])[phone] Director: Kan Craig MD Oxygen (Bld) [Partial pressure] 301.0 mm[Hg] High 75-95 [facility] Comment on above: Performed By: #### O HP, IOCAL, LACTIC ####[facility] [address] [place], [place] [id number])[phone] Director: Kan Craig MD pCO2 44.0 mmHg Normal 32-45 [facility] Comment on above: Performed By: #### O HP, IOCAL, LACTIC ####[facility] [address] [place], [place] [phone] Director: Kan Craig MD pH (Bld) 7.326 [pH] Low 7.350-7.450 [facility] Comment on above: Performed By: #### O HP, IOCAL, LACTIC ####[facility] [address] [place], [place] [phone] Director: Kan Craig MD Gabriel Test INFORMATION NOT PROVIDED Normal [facility] Comment on above: Performed By: #### I OCAL, OHP #### [facility] [address] [place] [address] Linux Developer: Kan Craig MD Body Temp. 37.0 Normal [facility] Comment on above: Performed By: #### O HP, IOCAL, LACTIC ####[facility] [address] [place] [address] Lab Director: Kan Craig MD Performed By: #### I OCAL, OHP #### [facility] [address] [place] [address] [employer] Developer: Kan Craig MD Carboxy Hgb 1.1 % Normal 0-5 [facility] Comment on above: Result Comment: Reference Range: Non-Smokers 0-2% Average Smoker 2-4% Heavy Smoker <10% Performed By: #### I OCAL, OHP #### [facility] [address] [place] [address] [employer] Developer: Kan Craig MD Chloride [Moles/Vol] 116 mmol/L High 98-110 [facility] Comment on above: Performed By: #### I OCAL, OHP #### [facility] [address] [place] [address] [employer] Developer: Kan Craig MD FIO2 70 Normal [facility] Comment on above: Performed By: #### I OCAL, OHP #### [facility] [address] [place] [address] [employer] Developer: Kan Craig MD Glucose [Mass/Vol] 150 mg/dL High 75-110 [facility] Comment on above: Performed By: #### I OCAL, OHP #### [facility] [address] [place] [address] [employer] Developer: Kan Craig MD HCO3 (Bld) [Moles/Vol] 19.7 mmol/L Low 22-27 [facility] Comment on above: Performed By: #### I OCAL, OHP #### [facility] [address] [place] [address] [employer] Developer: Kan Craig MD Hematocrit (Bld) [Volume fraction] 44.5 % Normal 40.7-50.3 [facility] Comment on above: Performed By: #### I OCBLADIMIR, OHP #### [facility] [address] [place] [address] [employer] Developer: Kan Craig MD Hemoglobin (Bld) [Mass/Vol] 14.5 g/dL Normal 13.0-17.0 [facility] Comment on above: Performed By: #### I OCAL, OHP #### [facility] [address] [place] [address] [employer] Developer: Kan Craig MD Negative Base Excess 5.1 mmol/L High 0.0-2.0 [facility] Comment on above: Performed By: #### I OCBLADIMIR, OHP #### [facility] [address] [place] [address] Linux Developer: Kan Craig MD Oxygen (Bld) [Partial pressure] 281.0 mm[Hg] High 75-95 [facility] Comment on above: Performed By: #### I OCBLADIMIR, OHP #### [facility] [address] [place] [address] Linux Developer: Kan Craig MD Oxygen saturation in Blood 98.6 % Normal 94-100 [facility] Comment on above: Performed By: #### I OCAL, OHP #### [facility] [address] [place] [address] Linux Developer: Kan Craig MD pCO2 37.6 mmHg Normal 32-45 [facility] Comment on above: Performed By: #### I OCAL, OHP #### [facility] [address] [place] [address] Linux Developer: Kan Craig MD pH (Bld) 7.338 [pH] Low 7.350-7.450 [facility] Comment on above: Performed By: #### I OCAL, OHP #### [facility] [address] [place] [address] Linux Developer: Kan Craig MD Potassium [Moles/Vol] 2.9 mmol/L Critically low 3.6-5.0 [facility] Comment on above: Performed By: #### I OCBLADIMIR, OHP #### [facility] [address] [place], [place] [phone] Linux Developer: Kan Craig MD Sodium [Moles/Vol] 140 mmol/L Normal 136-145 [facility] Comment on above: Performed By: #### Candy OCBLADIMIR OHP #### [facility] [address] [place], [place] [phone] Linux Developer: Kan Craig MD POC Glucose Fingerstickon Glucose [Mass/Vol] 209 mg/dL High 75 - 110 mg/dL [facility] Interpretation and review of laboratory results Abnormal [facility] Glucose [Mass/Vol] 200 mg/dL High 75 - 110 mg/dL [facility] Interpretation and review of laboratory results Abnormal [facility] Glucose [Mass/Vol] 195 mg/dL High 75 - 110 mg/dL [facility] Interpretation and review of laboratory results Abnormal [facility] POCT Glucoseon 07-28-2023 Glucose [Mass/Vol] 156 mg/dL High 74 - 100 mg/dL [facility] Interpretation and review of laboratory results Abnormal [facility] POTASSIUM (POC)on 07-28-2023 Potassium [Moles/Vol] 3.9 mmol/L 3.5 - 4.5 mmol/L [facility] Potassium (POC)on 07-28-2023 Potassium [Moles/Vol] 3.9 mmol/L Normal 3.5-4.5 [facility] CT CHEST WO CONTRASTon 07-27 CT CHEST WO CONTRAST EXAMINATION: CT OF THE CHEST WITHOUT CONTRAST 07/27/2023 3:49 pm TECHNIQUE: CT of the chest was performed without the administration of intravenous contrast. Multiplanar reformatted images are provided for review. Automated exposure control, iterative reconstruction, and/or weight based adjustment of the mA/kV was utilized to reduce the radiation dose to as low as reasonably achievable. COMPARISON: 06/07/2023 CT HISTORY: ORDERING SYSTEM PROVIDED HISTORY: Stenosis of cervical spine with myelopathy ([facility]) TECHNOLOGIST PROVIDED HISTORY: please include SAGITTAL up to C6 FINDINGS: Study was ordered as a CT of the chest without contrast. History states stenosis of cervical spine with myelopathy. This cannot be evaluated on a noncontrast CT of the chest. Limited evaluation of cervical spine on this study. Mediastinum: Heart size normal with mild atherosclerotic calcification of coronary arteries. Mild atherosclerotic calcification of the aorta. Pulmonary arteries are normal. There is no lymph node enlargement. Thyroid and esophagus are normal. Lungs/pleura: The airways are patent. No pleural fluid. Small band of atelectasis in the right lower lobe. No suspicious pulmonary mass or nodule. Several tiny subpleural nodules measuring no greater than 4 mm are noted bilaterally. Upper Abdomen: Adrenal glands are normal. No significant findings in the visualized upper abdomen. Soft Tissues/Bones: No skeletal abnormalities in the chest. Very limited evaluation of the cervical spine demonstrating moderate disc space narrowing and degenerative spondylosis contributing to spinal canal stenosis at C4-5 through C7-T1. IMPRESSION: 1. The lungs are clear with no acute pulmonary finding. 2. Tiny subpleural nodules noted incidentally for which no follow-up is necessary. 3. Mild atherosclerotic calcification of coronary arteries. 4. Very limited evaluation of the cervical spine pertaining to provided history. Recommend a follow-up MRI of the cervical spine for further evaluation of potential myelopathy. Interpreted by: Rafael Noel IV, MD Signed by: Rafael Noel IV, MD 07/27/23 Final result Normal [facility] APTTon 07-10-2023 aPTT Coag (Bld) [Time] 28.5 s Normal 23.0-36.5 [facility] Comment on above: Result Comment: IV Heparin Therapy Range: 66.0-92.0 sec Performed By: #### B MP, CDP, PT, PTT ####[place] [id number] Lab Director: Kan Craig MD Basic Metabolic Profon 07-10 Anion gap [Moles/Vol] 13 mmol/L Normal 9-16 [facility] Comment on above: Performed By: #### B MP, CDP, PT, PTT ####[facility] [address] [place], [place] [id number])[phone] Director: Kan Craig MD Calcium [Mass/Vol] 9.4 mg/dL Normal 8.6-10.4 [facility] Comment on above: Performed By: #### B MP, CDP, PT, PTT ####[facility] [address] [place], [place] [address])[phone] Director: Kan Craig MD Chloride [Moles/Vol] 102 mmol/L Normal 98-107 [facility] Comment on above: Performed By: #### B MP, CDP, PT, PTT ####[facility] [address] [place], [place] [address])[phone] Director: Kan Craig MD CO2 [Moles/Vol] 24 mmol/L Normal 20-31 [facility] Comment on above: Performed By: #### B MP, CDP, PT, PTT ####[facility] [address] [place], [place] [phone] Director: Kan Craig MD Creatinine [Mass/Vol] 1.0 mg/dL Normal 0.70-1.20 [facility] Comment on above: Performed By: #### B MP, CDP, PT, PTT ####[facility] [address] [place], [place] [address])[phone] Director: Kan Craig MD GFR/1.73 sq M.predicted among non-blacks MDRD (S/P/Bld) [Vol rate/Area] mL/min/{1.73_m2} Normal >60 [facility] Comment on above: Result Comment: These results are not intended for use in patients <18 years of age. eGFR results are calculated without a race factor using the 2020 CKD-EPI equation. Careful clinical correlation is recommended, particularly when comparing to results calculated using previous equations. The CKD-EPI equation is less accurate in patients with extremes of muscle mass, extra-renal metabolism of creatine, excessive creatine ingestion, or following therapy that affects renal tubular secretion. Performed By: #### B MP, CDP, PT, PTT ####[facility] [address] [place], [place] [address])[phone] Director: Kan Craig MD Glucose [Mass/Vol] 114 mg/dL High 74-99 [facility] Comment on above: Performed By: #### B MP, CDP, PT, PTT ####[facility] [address] [place], [place] [address])[phone] Director: Kan Craig MD Potassium [Moles/Vol] 4.2 mmol/L Normal 3.7-5.3 [facility] Comment on above: Performed By: #### B MP, CDP, PT, PTT ####[facility] [address] [place] [address])[phone] Director: Kan Craig MD Sodium [Moles/Vol] 139 mmol/L Normal 136-145 [facility] Comment on above: Performed By: #### B MP, CDP, PT, PTT ####[facility] [address] [place], [place] [address])[phone] Director: Kan Craig MD Urea nitrogen [Mass/Vol] 21 mg/dL Normal 8-23 [facility] Comment on above: Performed By: #### B MP, CDP, PT, PTT ####[facility] [address] [place], [place] [address])[phone] Director: Kan Craig MD CBC with Diffon 07-10-2023 Abs. Basophil 0.11 k/uL Normal 0.00-0.20 [facility] Comment on above: Performed By: #### B MP, CDP, PT, PTT ####[facility] [address] [place], [place] [address])[phone] Director: Kan Craig MD Abs.Imm.Granulocyte 0.05 k/uL Normal 0.00-0.30 [facility] Comment on above: Performed By: #### B MP, CDP, PT, PTT ####[address] [address])[phone] Director: Kan Craig MD Abs.Neutrophil (Seg) 3.72 k/uL Normal 1.50-8.10 [facility] Comment on above: Performed By: #### B MP, CDP, PT, PTT ####[place], [place] [address])[phone] Director: Kan Craig MD Basophils/100 WBC (Bld) 2 % Normal 0-2 [facility] Comment on above: Performed By: #### B MP, CDP, PT, PTT ####[place], [place] [address])[phone] Director: Kan Craig MD Eosinophils (Bld) [#/Vol] 0.16 10*3/uL Normal 0.00-0.44 [facility] Comment on above: Performed By: #### B MP, CDP, PT, PTT ####[address] [address])[phone] Director: Kan Craig MD Eosinophils/100 WBC (Bld) 3 % Normal 1-4 [facility] Comment on above: Performed By: #### B MP, CDP, PT, PTT ####[address] [address])[phone] Director: Kan Craig MD Erythrocyte distribution width (RBC) [Ratio] 12.1 % Normal 11.8-14.4 [facility] Comment on above: Performed By: #### B MP, CDP, PT, PTT ####[place], [place] [address])[phone] Director: Kan Craig MD Hematocrit (Bld) [Volume fraction] 49.3 % Normal 40.7-50.3 [facility] Comment on above: Performed By: #### B MP, CDP, PT, PTT ####[facility] [address] [place], [place] [id number])[phone] Director: Kan Craig MD Hemoglobin (Bld) [Mass/Vol] 16.3 g/dL Normal 13.0-17.0 [facility] Comment on above: Performed By: #### B MP, CDP, PT, PTT ####[facility] [address] [place] [address])[phone] Director: Kan Craig MD Immature granulocytes/100 WBC (Bld) 1 % High 0 [facility] Comment on above: Performed By: #### B MP, CDP, PT, PTT ####[facility] [address] [place] [address])[phone] Director: Kan Craig MD Lymphocytes (Bld) [#/Vol] 1.83 10*3/uL Normal 1.10-3.70 [facility] Comment on above: Performed By: #### B MP, CDP, PT, PTT ####[facility] [address] [place] [address])[phone] Director: Kan Craig MD Lymphocytes/100 WBC (Bld) 29 % Normal 24-43 [facility] Comment on above: Performed By: #### B MP, CDP, PT, PTT ####[facility] [address] [place], [place] [address])[phone] Director: Kan Craig MD MCH (RBC) [Entitic mass] 31.7 pg Normal 25.2-33.5 [facility] Comment on above: Performed By: #### B MP, CDP, PT, PTT ####[facility] [address] [place] [address] Lab Director: Kan Craig MD MCHC (RBC) [Mass/Vol] 33.1 g/dL Normal 28.4-34.8 [facility] Comment on above: Performed By: #### B MP, CDP, PT, PTT ####[facility] [address] [place] [address] Lab Director: Kan Craig MD MCV (RBC) [Entitic vol] 95.7 fL Normal 82.6-102.9 [facility] Comment on above: Performed By: #### B MP, CDP, PT, PTT ####[address] [address])[phone] Director: Kan Craig MD Monocytes (Bld) [#/Vol] 0.41 10*3/uL Normal 0.10-1.20 [facility] Comment on above: Performed By: #### B MP, CDP, PT, PTT ####[facility] [address] [place] [address])[phone] Director: Kan Craig MD Monocytes/100 WBC (Bld) 7 % Normal 3-12 [facility] Comment on above: Performed By: #### B MP, CDP, PT, PTT ####[address] [id number])[phone] Director: Kan Craig MD Neutrophil (Seg) 58 % Normal 36-65 [facility] Comment on above: Performed By: #### B MP, CDP, PT, PTT ####[facility] [address] [place] [address] [id number])[phone] Director: Kan Craig MD NRBC Automated 0.0 per 100 WBC Normal 0.0 [facility] Comment on above: Performed By: #### B MP, CDP, PT, PTT ####[facility] [address] [place] [address] [id number])[phone] Director: Kan Craig MD Platelet mean volume (Bld) [Entitic vol] 10.5 fL Normal 8.1-13.5 [facility] Comment on above: Performed By: #### B MP, CDP, PT, PTT ####[address] [place], [place] [id number])[phone] Director: Kan Craig MD Platelets (Bld) [#/Vol] 225 10*3/uL Normal 138-453 [facility] Comment on above: Performed By: #### B MP, CDP, PT, PTT ####[address] [id number])[phone] Director: Kan Craig MD RBC (Bld) [#/Vol] 5.15 10*6/uL Normal 4.21-5.77 [facility] Comment on above: Performed By: #### B MP, CDP, PT, PTT ####[address] [id number])[phone] Director: Kan Craig MD WBC (Bld) [#/Vol] 6.3 10*3/uL Normal 3.5-11.3 [facility] Comment on above: Performed By: #### B MP, CDP, PT, PTT ####[address] [id number])[phone] Director: Kan Craig MD PTon 07-10-2023 INR Coag (PPP) [Relative time] 1.0 {INR} Normal [facility] Comment on above: Result Comment: Therapeutic Range: Moderate Anticoagulant Intensity: INR = 2.0-3.0 High Anticoagulant Intensity: INR = 2.5-3.5 Performed By: #### B MP, CDP, PT, PTT ####[address] [id number])[phone] Director: Kan Craig MD PT Coag (PPP) [Time] 12.7 s Normal 11.7-14.9 [facility] Comment on above: Performed By: #### B MP, CDP, PT, PTT ####[address] [address] Lab Director: Kan Craig MD Type + Screenon 9 Type + Screen Sample Expiration 07/31/2023,2359 Arm Band Number BE [id number] ABO/Rh(D) B POSITIVE Antibody Screen NEGATIVE Normal [facility] Comment on above: Performed By: #### T YS #### [address] [address] Linux Developer: Kan Craig MD Performed By: #### T YS ####[address] [address] Lab Director: Kan Craig MD Urinalysis, Routineon 2023 Bilirubin, SemiQt,Ur Negative Normal NEG [facility] Comment on above: Performed By: #### U A #### [address] [address] Linux Developer: Kan Craig MD Blood, Urine Negative Normal NEG [facility] Comment on above: Performed By: #### U A #### [address] [address] Linux Developer: Kan Craig MD Clarity (U) Clear Normal CLEAR [facility] Comment on above: Performed By: #### U A #### [facility] [address] [place] [address] Linux Developer: Kan Craig MD Color (U) Yellow Normal YEL [facility] Comment on above: Performed By: #### U A #### [address] [address] Linux Developer: Kan Craig MD Comment Microscopic exam not performed based on chemical results unless requested in Normal [facility] Comment on above: Result Comment: orig inal order. Performed By: #### U A #### [address] [address] Linux Developer: Kan Craig MD Glucose Ql (U) 3+ mg/dL Abnormal NEG [facility] Comment on above: Performed By: #### U A #### [address] [address] Linux Developer: Kan Craig MD Ketones Ql (U) Negative Normal NEG [facility] Comment on above: Performed By: #### U A #### [address] [address] Linux Developer: Kan Craig MD Leukocyte esterase Test strip Ql (U) Negative Normal NEG [facility] Comment on above: Performed By: #### U A #### [address] [address] Linux Developer: Kan Craig MD Nitrite,Ur Negative Normal NEG [facility] Comment on above: Performed By: #### U A #### [address] [address] Linux Developer: Kan Craig MD PH,Ur 5.0 Normal 5.0-8.0 [facility] Comment on above: Performed By: #### U A #### [address] [address] Linux Developer: Kan Craig MD Protein Ql (U) Negative Normal NEG [facility] Comment on above: Performed By: #### U A #### [address] [address] Linux Developer: Kan Craig MD Spec. [place],Ur 1.029 Normal 1.005-1.030 [facility] Comment on above: Performed By: #### U A #### [address] [address] Linux Developer: Kan Craig MD Urobilinogen,Ur Normal Normal 0.0-1.0 [facility] Comment on above: Performed By: #### U A #### [facility] [address] [place] [address] Linux Developer: Kan Craig MD CT CERVICAL SPINE WO CONTRAS Ton 06-07-2023 CT CERVICAL SPINE WO CONTRAST EXAMINATION: CT OF THE CERVICAL SPINE WITHOUT CONTRAST 06/07/2023 10:57 am TECHNIQUE: CT of the cervical spine was performed without the administration of intravenous contrast. Multiplanar reformatted images are provided for review. Automated exposure control, iterative reconstruction, and/or weight based adjustment of the mA/kV was utilized to reduce the radiation dose to as low as reasonably achievable. COMPARISON: MRI 05/15/2023 HISTORY: ORDERING SYSTEM PROVIDED HISTORY: 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) TECHNOLOGIST PROVIDED HISTORY: evaluate for OPLL in anterior cervical spine FINDINGS: BONES/ALIGNMENT: There is no acute fracture or traumatic malalignment. 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 Degenerative minimal anterolisthesis of C4 on C5. No contiguous ossification of the anterior or posterior longitudinal ligament. DEGENERATIVE CHANGES: Advanced multilevel degenerative disc disease and advanced facet arthropathy is noted. Multilevel posterior and anterior disc osteophyte complexes are noted, most pronounced at C2-3, C5-6, C6-7 and C7-T1. The previously described large disc fragment at C7-T1 is partially calcified and results in spinal canal stenosis. Multilevel osseous neural foraminal encroachment present throughout the cervical spine, most pronounced at C4-5, C5-6 and C6-7. SOFT TISSUES: There is no prevertebral soft tissue swelling. IMPRESSION: No acute osseous abnormality of the cervical spine. No contiguous ossification of the anterior or posterior longitudinal ligament. Advanced multilevel degenerative disc disease with disc osteophyte complexes and facet arthropathy, as described. Interpreted by: Johan Bowers MD Signed by: Johan Bowers MD 06/07/23 Final result Normal [facility] Basic Metabolic Profon 05-19 Anion gap [Moles/Vol] 13 mmol/L Normal 9-17 [facility] Comment on above: Performed By: #### C BC, BMP #### [facility] [address] [place] [address] Linux Developer: Julio Martínez MD #### GLYHGB #### [address] [address] Linux Developer: Kan Craig MD BUN/CRE Ratio 27 High 9-20 [facility] Comment on above: Performed By: #### C BC, BMP #### [facility] [address] [place] [address] Linux Developer: Julio Martínez MD #### GLYHGB #### [address] [address] Linux Developer: Kan Craig MD Calcium [Mass/Vol] 9.7 mg/dL Normal 8.6-10.4 [facility] Comment on above: Performed By: #### C BC, BMP #### [facility] [address] [place] [address] Linux Developer: Julio Martínez MD #### GLYHGB #### [address] [address] Linux Developer: Kan Craig MD Chloride [Moles/Vol] 103 mmol/L Normal 98-107 [facility] Comment on above: Performed By: #### C BC, BMP #### [facility] [address] [place] [address] Linux Developer: Julio Martínez MD #### GLYHGB #### [address] [address] Linux Developer: Kan Craig MD CO2 [Moles/Vol] 24 mmol/L Normal 20-31 [facility] Comment on above: Performed By: #### C BC, BMP #### [facility] [address] [place] [address] Linux Developer: Julio Martínez MD #### GLYHGB #### [address] [address] Linux Developer: Kan Craig MD Creatinine [Mass/Vol] 1.0 mg/dL Normal 0.7-1.2 [facility] Comment on above: Performed By: #### C TRAVIS, BMP #### [facility] [address] [place] [address] Linux Developer: Julio Martínez MD #### GLYHGB #### [address] [phone] Linux Developer: Kan Craig MD GFR/1.73 sq M.predicted among non-blacks MDRD (S/P/Bld) [Vol rate/Area] mL/min/{1.73_m2} Normal >60 [facility] Comment on above: Result Comment: These results are not intended for use in patients <18 years of age. eGFR results are calculated without a race factor using the 2020 CKD-EPI equation. Careful clinical correlation is recommended, particularly when comparing to results calculated using previous equations. The CKD-EPI equation is less accurate in patients with extremes of muscle mass, extra-renal metabolism of creatine, excessive creatine ingestion, or following therapy that affects renal tubular secretion. Performed By: #### C BC, BMP #### [facility] [address] [place] [address] Linux Developer: Julio Martínez MD #### GLYHGB #### [address] [address] Linux Developer: Kan Craig MD Glucose [Mass/Vol] 169 mg/dL High 70-99 [facility] Comment on above: Performed By: #### C TRAVIS, BMP #### [facility] [address] [place] [address] Linux Developer: Julio Martínez MD #### GLYHGB #### [address] [address] Linux Developer: Kan Craig MD Potassium [Moles/Vol] 4.1 mmol/L Normal 3.7-5.3 [facility] Comment on above: Performed By: #### C BC, BMP #### [facility] [address] [place] [address] Linux Developer: Julio Martínez MD #### GLYHGB #### [address] [address] Linux Developer: Kan Craig MD Sodium [Moles/Vol] 140 mmol/L Normal 135-144 [facility] Comment on above: Performed By: #### C BC, BMP #### [facility] [address] [place] [address] Linux Developer: Julio Martínez MD #### GLYHGB #### [address] [address] Linux Developer: Kan Craig MD Urea nitrogen [Mass/Vol] 27 mg/dL High 8-23 [facility] Comment on above: Performed By: #### C BC, BMP #### [facility] [address] [place] [address] Linux Developer: Julio Martínez MD #### GLYHGB #### [address] [address] Linux Developer: Kan Craig MD CBCon 05-19-2023 Erythrocyte distribution width (RBC) [Ratio] 13.6 % Normal 11.8-14.4 [facility] Comment on above: Performed By: #### C BC, BMP #### [facility] [address] [place] [address] Linux Developer: Julio Martínez MD #### GLYHGB #### [address] [address] Linux Developer: Kan Craig MD Hematocrit (Bld) [Volume fraction] 46.6 % Normal 40.7-50.3 [facility] Comment on above: Performed By: #### C BC, BMP #### [facility] [address] [place] [address] Linux Developer: Julio Martínez MD #### GLYHGB #### [address] [address] Linux Developer: Kan Craig MD Hemoglobin (Bld) [Mass/Vol] 15.6 g/dL Normal 13.0-17.0 [facility] Comment on above: Performed By: #### C BC, BMP #### [facility] [address] [place] [address] Linux Developer: Julio Martínez MD #### GLYHGB #### [address] [address] Linux Developer: Kan Craig MD MCH (RBC) [Entitic mass] 31.9 pg Normal 25.2-33.5 [facility] Comment on above: Performed By: #### C BC, BMP #### [facility] [place] [address] Linux Developer: Julio Martínez MD #### GLYHGB #### [address] [address] Linux Developer: Kan Craig MD MCHC (RBC) [Mass/Vol] 33.5 g/dL Normal 28.4-34.8 [facility] Comment on above: Performed By: #### C BC, BMP #### [facility] [address] [place] [address] Linux Developer: Julio Martínez MD #### GLYHGB #### [address] [phone] Linux Developer: Kan Craig MD MCV (RBC) [Entitic vol] 95.3 fL Normal 82.6-102.9 [facility] Comment on above: Performed By: #### C TRAVIS, BMP #### [facility] [address] [place] [address] [phone] Linux Developer: Julio Martínez MD #### GLYHGB #### [address] [phone] Linux Developer: Kan Craig MD NRBC Automated 0.0 per 100 WBC Normal 0.0 [facility] Comment on above: Performed By: #### C TRAVIS, BMP #### [facility] [address] [place] [address] [phone] Linux Developer: Julio Martínez MD #### GLYHGB #### [address] [phone] Linux Developer: Kan Craig MD Platelet mean volume (Bld) [Entitic vol] 10.7 fL Normal 8.1-13.5 [facility] Comment on above: Performed By: #### C TRAVIS, BMP #### [facility] [address] [place] [address] [phone] Linux Developer: Julio Martínez MD #### GLYHGB #### [address] [phone] Linux Developer: Kan Craig MD Platelets (Bld) [#/Vol] 255 10*3/uL Normal 138-453 [facility] Comment on above: Performed By: #### C BC, BMP #### [facility] [place] [address] Linux Developer: Julio Martínez MD #### GLYHGB #### [address] [address] Linux Developer: Kan Craig MD RBC (Bld) [#/Vol] 4.89 10*6/uL Normal 4.21-5.77 [facility] Comment on above: Performed By: #### C TRAVIS, BMP #### [facility] [address] [place] [address] Linux Developer: Julio Martínez MD #### GLYHGB #### [address] [address] Linux Developer: Kan Craig MD WBC (Bld) [#/Vol] 6.3 10*3/uL Normal 3.5-11.3 [facility] Comment on above: Performed By: #### C BC, BMP #### [facility] [address] [place] [address] Linux Developer: Julio Martínez MD #### GLYHGB #### [address] [address] Linux Developer: Kan Craig MD Hemoglobin A1Con 05-19-2023 Glucose [Mass/Vol] 151 mg/dL Normal [facility] Comment on above: Result Comment: The ADA and AACC recommend providing the estimated average glucose result to permit better patient understanding of their HBA1c result. Performed By: #### C TRAVIS, BMP #### [facility] [address] [place] [address] Linux Developer: Julio Martínez MD #### GLYHGB #### [facility] [address] [place], [place] [phone] Linux Developer: Kan Craig MD HbA1c (Bld) [Mass fraction] 6.9 % High 4.0-6.0 [facility] Comment on above: Performed By: #### C BC, BMP #### [facility] [address], [place] [phone] Linux Developer: Julio Martínez MD #### GLYHGB #### [facility] [address] [place], [place] [phone] Linux Developer: Kan Craig MD MRI CERVICAL SPINE WO CONTRA STon 05-17-2023 MRI CERVICAL SPINE WO CONTRAST EXAMINATION: MRI OF THE CERVICAL SPINE WITHOUT CONTRAST 05/15/2023 12:00 pm TECHNIQUE: Multiplanar multisequence MRI of the cervical spine was performed without the administration of intravenous contrast. COMPARISON: None. HISTORY: ORDERING SYSTEM PROVIDED HISTORY: Spinal cord compression (HCC) TECHNOLOGIST PROVIDED HISTORY: Reason for Exam: patient states neck pain radiating into shoulders, numbness Initial evaluation FINDINGS: BONES/ALIGNMENT: There is normal alignment of the spine. The vertebral body heights are maintained. The bone marrow signal appears unremarkable. There is degenerative disc disease with disc space narrowing and osteophytes at C2-3, C3-4, C4-5, C5-6, C6-7, and C7-T1. SPINAL CORD: There is questionable signal abnormality in the cord at C7-T1 where there is severe stenosis. SOFT TISSUES: No paraspinal mass identified. C2-C3: There is disc protrusion or osteophyte measuring 3-4 mm toward the left causing moderate narrowing of the left neural foramen. The right neural foramen is intact. The thecal sac is mild to moderately stenotic. C3-C4: There is disc protrusion measuring 3-4 mm with osteophytes. There is moderate to severe narrowing of the right neural foramen. The thecal sac is mildly stenotic. There is mild to moderate narrowing of the left neural foramen. C4-C5: There is a disc protrusion measuring 4-5 mm toward the right. The thecal sac is moderately stenotic. There is moderate to severe narrowing of the right neural foramen. There is moderate narrowing of the left neural foramen. C5-C6: There is disc protrusion or osteophyte measuring 5-6 mm toward the left causing severe narrowing of the left neural foramen. There is moderate to severe narrowing of the right neural foramen. The thecal sac is moderately stenotic. C6-C7: There is a disc protrusion measuring 4-5 mm. There is moderate to severe narrowing of the neural foramina bilaterally. The thecal sac is moderately stenotic. C7-T1: There is a large disc extrusion or free disc fragment or lesion measuring 8 mm causing severe stenosis of the thecal sac and compression of the spinal cord. The spinal cord and thecal sac measure approximately 3 mm. Disc and/or osteophytes result in mild narrowing of the neural foramina bilaterally. IMPRESSION: Large disc extrusion/free disc fragment or lesion causing severe stenosis of the thecal sac at C7-T1 with flattening of the spinal cord. There is suspected high signal in the cord from the severe stenosis. Postcontrast imaging could be considered to exclude any abnormal enhancement. Disc and osteophytes narrow the neural foramina throughout the cervical region as discussed above. Interpreted by: Tonja Malone MD Davis, Melissa B, MD Signed by: Tonja Malone MD 05/17/23 Final result Normal [facility] POINT OF CARE GLUCOSEon 10-10 Glucose [Mass/Vol] 159 mg/dL Critically high 74-106 [facility] Comment on above: Performed By: #### P OCGLUC #### [facility] [address] [address] [address] Cristal Goodwin POINT OF CARE GLUCOSEon 09-10 Glucose [Mass/Vol] 182 mg/dL Critically high 74-106 [facility] Comment on above: Performed By: #### P OCGLUC #### [facility] [address] [address] [address] Cristal Goodwin XR CSPINE 2_3 VIEWSon 2022 XR CSPINE 2_3 VIEWS EXAMINATION: XR CSPINE 2_3 VIEWS HISTORY: Cervical spondylosis ; chronic neck pain COMPARISON: No relevant comparison available. FINDINGS: BONES: Minimal grade 1 retrolisthesis of C5 on C6. Moderate marked degenerative facet arthropathy C2-C3 through C4-C5. DISC SPACES: Mild narrowing C4-C5. Marked narrowing C5-C6, C6-C7. PARASPINOUS: Negative. No paraspinous abnormality is seen. OTHER: Negative. IMPRESSION: 1. Multilevel marked degenerative changes of cervical spine. Electronically authenticated by: WILL SOARES Date: 2022-09-15 10:31 Normal [facility] XR TSPINE 2 VIEWSon 09-16-19 23 XR TSPINE 2 VIEWS EXAMINATION: XR TSPINE 2 VIEWS HISTORY: Thoracic spondylosis ; chronic thoracic pain COMPARISON: No relevant comparison available. FINDINGS: BONES: Minimal curvature of mid thoracic spine. No fracture, spondylolisthesis, bone lesion. DISC SPACES: Multilevel mild degenerative disc disease and degenerative endplate spurring. PARASPINOUS: Negative. No paraspinous abnormality is seen. OTHER: Negative. IMPRESSION: 1. No acute bone abnormality. 2. Multilevel mild degenerative changes; greatest at T6-T7. Electronically authenticated by: WILL SOARES Date: 2022-09-15 10:29 Normal [facility] POINT OF CARE GLUCOSEon 08-11 Glucose [Mass/Vol] 120 mg/dL Critically high 74-106 [facility] Comment on above: Performed By: #### P OCGLUC #### [facility] [address] [place] [address] Dr. Cristal Goodwin XR LSPINE MIN 4 VIEWSon 030 XR LSPINE MIN 4 VIEWS EXAMINATION: XR LSPINE MIN 4 VIEWS HISTORY: Low back pain COMPARISON: 09/24/2018 FINDINGS: BONES: Normal alignment of the lumbar spine with no acute fracture or spondylolisthesis. Moderate degenerative spondylosis. Moderate to severe facet osteoarthropathy DISC SPACES: Multilevel disc space narrowing with endplate sclerosis. Vacuum disc L4-L5 PARASPINOUS: Negative. No paraspinous abnormality is seen. OTHER: Sylvia calcifications IMPRESSION: Moderate to severe diffuse degenerative changes Electronically authenticated by: GUILLERMO AMADOR Date: 2022-08-10 07:23 Normal [facility] CT LUNG CANCER SCREENINGon 0 08-03-2022 CT LUNG CANCER SCREENING EXAMINATION: CT LUNG CANCER SCREENING HISTORY: Nicotine dependence COMPARISON: No relevant comparison available. TECHNIQUE: Axial, Coronal, and Sagittal images were created without the administration of IV contrast material. Dose reduction techniques were achieved by using automated exposure control and/or adjustment of mA and/or kV according to patient size and/or use of iterative reconstruction technique. FINDINGS: LUNGS: No visible pulmonary disease. PLEURA: No mass, effusion, or pneumothorax. VASCULATURE: No abnormality. NASH: No mass or pathologic adenopathy. MEDIASTINUM: No mass or pathologic adenopathy. CARDIAC: No enlargement, pericardial thickening, or significant calcification. AORTA: No aneurysm or dissection. CHEST WALL: No mass or axillary adenopathy BONES: No bone lesion or fracture. LIMITED ABDOMEN: No suspicious findings. Limited images of the upper abdomen. OTHER: Negative. IMPRESSION: 1. Lung-RADS Category 1 Negative. No nodules and definitely benign nodules. Continue annual screening with LDCT in 12 months. Electronically authenticated by: WILL SOARES Date: 2022-08-03 15:51 Normal [facility] BASIC METABOLIC PANELon 07-2 BUN/CREATININE RATIO NOT APPLICABLE Normal - [facility] Comment on above: Order Comment: FASTI NG:YES FASTING: YES Performed By: #### 4 96, [id number] #### [facility] [address], [address] [place] [address] Rural Electrification Engineer: Gelacio Alonso MD Calcium [Mass/Vol] 9.1 mg/dL Normal 8.6-10.3 [facility] Comment on above: Order Comment: FASTI NG:YES FASTING: YES Performed By: #### 4 96, [id number] #### [facility] [place] [address] Rural Electrification Engineer: Gelacio Alonso MD Chloride [Moles/Vol] 106 mmol/L Normal 98-110 [facility] Comment on above: Order Comment: FASTI NG:YES FASTING: YES Performed By: #### 4 96, [id number] #### [facility] [place] [address] Rural Electrification Engineer: Gelacio Alonso MD CO2 [Moles/Vol] 26 mmol/L Normal 20-32 [facility] Comment on above: Order Comment: FASTI NG:YES FASTING: YES Performed By: #### 4 96, 19130 #### [facility] [address], [address] [place] [address] Rural Electrification Engineer: Gelacio Alonso MD Creatinine [Mass/Vol] 0.93 mg/dL Normal 0.70-1.35 [facility] [employer] Comment on above: Order Comment: FASTI NG:YES FASTING: YES Performed By: #### 4 96, [id number] #### [facility] [address], [address] [place] [address] Rural Electrification Engineer: Gelacio Alonso MD GFR/1.73 sq M.predicted among non-blacks MDRD (S/P/Bld) [Vol rate/Area] 93 mL/min/{1.73_m2} Normal > OR = 60 [facility] Comment on above: Order Comment: FASTI NG:YES FASTING: YES Result Comment: The eGFR is based on the CKD-EPI 2020 equation. To calculate the new eGFR from a previous Creatinine or Cystatin C result, go to https://www.kidney.org/professionals/ kdoqi/gfr%5Fcalculator Performed By: #### 4 96, [id number] #### [facility] [address], [address] [place] [address] Rural Electrification Engineer: Gelacio Alonso MD Glucose [Mass/Vol] 136 mg/dL High 65-99 [facility] Comment on above: Order Comment: FASTI NG:YES FASTING: YES Result Comment: Fasting reference interval For someone without known diabetes, a glucose value >125 mg/dL indicates that they may have diabetes and this should be confirmed with a follow-up test. Performed By: #### 4 96, [id number] #### [facility] [address], [address] [place] [address] Rural Electrification Engineer: Gelacio Alonso MD Potassium [Moles/Vol] 4.3 mmol/L Normal 3.5-5.3 [facility] [employer] Comment on above: Order Comment: FASTI NG:YES FASTING: YES Performed By: #### 4 96, 65006 #### [facility] [address], [address] [place] [address] Rural Electrification Engineer: Gelacio Alonso MD Sodium [Moles/Vol] 140 mmol/L Normal 135-146 [facility] Comment on above: Order Comment: FASTI NG:YES FASTING: YES Performed By: #### 4 96, 08812 #### [facility] [address], [address] [place] [address] Rural Electrification Engineer: Gelacio Alonso MD Urea nitrogen [Mass/Vol] 16 mg/dL Normal 7-25 [facility] Comment on above: Order Comment: FASTI NG:YES FASTING: YES Performed By: #### 4 96, [id number] #### [facility] [address], [address] [place] [address] Rural Electrification Engineer: Gelacio Alonso MD HEMOGLOBIN A1con 12-30-2021 HEMOGLOBIN A1c 6.0 % of total Hgb High <5.7 [facility] Comment on above: Result Comment: For someone without known diabetes, a hemoglobin A1c value between 5.7% and 6.4% is consistent with prediabetes and should be confirmed with a follow-up test. For someone with known diabetes, a value <7% indicates that their diabetes is well controlled. A1c targets should be individualized based on duration of diabetes, age, comorbid conditions, and other considerations. This assay result is consistent with an increased risk of diabetes. Currently, no consensus exists regarding use of hemoglobin A1c for diagnosis of diabetes for children. Performed By: #### 4 96, [id number] #### [facility] [address], [address] [place] [address] Rural Electrification Engineer: Gelacio Alonso MD BASIC METABOLIC PANELon 05-12 BUN/CREATININE RATIO NOT APPLICABLE Normal 6-22 [facility] Comment on above: Order Comment: FASTI NG:YES FASTING: YES Performed By: #### 1 0165 #### [facility] [address], [address] [place] [address] Rural Electrification Engineer: Gelacio Alonso MD Calcium [Mass/Vol] 9.3 mg/dL Normal 8.6-10.3 [facility] Comment on above: Order Comment: FASTI NG:YES FASTING: YES Performed By: #### 1 0165 #### [facility] [address], [address] [place] [address] Rural Electrification Engineer: Gelacio Alonso MD Chloride [Moles/Vol] 109 mmol/L Normal 98-110 [facility] Comment on above: Order Comment: FASTI NG:YES FASTING: YES Performed By: #### 1 0165 #### [facility] [address], [address] [place] [address] Rural Electrification Engineer: Gelacio Alonso MD CO2 [Moles/Vol] 26 mmol/L Normal 20-32 [facility] Comment on above: Order Comment: FASTI NG:YES FASTING: YES Performed By: #### 1 0165 #### [facility] [place] [address] Rural Electrification Engineer: Gelacio Alonso MD Creatinine [Mass/Vol] 0.93 mg/dL Normal 0.70-1.25 [facility] Comment on above: Order Comment: FASTI NG:YES FASTING: YES Result Comment: For patients >49 years of age, the reference limit for Creatinine is approximately 13% higher for people identified as -Danish. Performed By: #### 1 0165 #### [facility] [address], [address] [place] [address] Rural Electrification Engineer: Gelacio Alonso MD eGFR NON-AFR. ETHIOPIAN 88 mL/min/1.73m2 Normal > OR = 60 [facility] Comment on above: Order Comment: FASTI NG:YES FASTING: YES Performed By: #### 1 0165 #### [facility] [address], [address] [place] [address] Rural Electrification Engineer: Gelacio Alonso MD GFR/1.73 sq M.predicted among blacks MDRD (S/P/Bld) [Vol rate/Area] 102 mL/min/{1.73_m2} Normal > OR = 60 [facility] Comment on above: Order Comment: FASTI NG:YES FASTING: YES Performed By: #### 1 0165 #### [facility] [address], [address] [place] [address] Rural Electrification Engineer: Gelacio Alonso MD Glucose [Mass/Vol] 122 mg/dL High 65-99 [facility] Comment on above: Order Comment: FASTI NG:YES FASTING: YES Result Comment: Fasting reference interval For someone without known diabetes, a glucose value between 100 and 125 mg/dL is consistent with prediabetes and should be confirmed with a follow-up test. Performed By: #### 1 0165 #### [facility] [place] [address] Rural Electrification Engineer: Gelacio Alonso MD Potassium [Moles/Vol] 4.5 mmol/L Normal 3.5-5.3 [facility] Comment on above: Order Comment: FASTI NG:YES FASTING: YES Performed By: #### 1 0165 #### [facility] [place] [address] Rural Electrification Engineer: Gelacio Alonso MD Sodium [Moles/Vol] 141 mmol/L Normal 135-146 [facility] Comment on above: Order Comment: FASTI NG:YES FASTING: YES Performed By: #### 1 0165 #### [facility] [place] [address] Rural Electrification Engineer: Gelacio Alonso MD Urea nitrogen [Mass/Vol] 24 mg/dL Normal 7-25 [facility] Comment on above: Order Comment: FASTI NG:YES FASTING: YES Performed By: #### 1 0165 #### [facility] [place] [address] Rural Electrification Engineer: Gelacio Alonso MD COMPREHENSIVE METABOLIC PANE [facility] [place] 02-04-2021 Albumin [Mass/Vol] 4.3 g/dL Normal 3.6-5.1 [facility] Comment on above: Performed By: #### 1 0231, 0950, 5363 #### [facility] [place] [address] Rural Electrification Engineer: Gelacio Alonso MD Albumin/Globulin [Mass ratio] 1.7 {ratio} Normal 1.0-2.5 [facility] Comment on above: Performed By: #### 1 0231, 6200, 5363 #### [facility] [address] [place] [address] Rural Electrification Engineer: Gelacio Alonso MD ALP [Catalytic activity/Vol] 54 U/L Normal 35-144 [facility] Comment on above: Performed By: #### 1 023, 7599, 5363 #### [facility] of [address], [address] [place] [address] Rural Electrification Engineer: Gelacio Alonso MD ALT [Catalytic activity/Vol] 19 U/L Normal 9-46 [facility] Comment on above: Performed By: #### 1 023, 7599, 5363 #### [facility] of [address], [address] [place] [address] Rural Electrification Engineer: Gelacio Alonso MD AST [Catalytic activity/Vol] 19 U/L Normal 10-35 [facility] Comment on above: Performed By: #### 1 023, 7599, 5363 #### [facility] of [place] [address] Rural Electrification Engineer: Gelacio Alonso MD Bilirubin [Mass/Vol] 0.6 mg/dL Normal 0.2-1.2 [facility] Comment on above: Performed By: #### 1 023, 7599, 5363 #### [facility] of [place] [address] Rural Electrification Engineer: Gelacio Alonso MD BUN/CREATININE RATIO NOT APPLICABLE Normal 6-22 [facility] Comment on above: Performed By: #### 1 023, 7599, 5363 #### [facility] of [place] [address] Rural Electrification Engineer: Gelacio Alonso MD Calcium [Mass/Vol] 9.2 mg/dL Normal 8.6-10.3 [facility] Comment on above: Performed By: #### 1 023, 7599, 5363 #### [facility] of [place] [address] Rural Electrification Engineer: Gelacio Alonso MD Chloride [Moles/Vol] 106 mmol/L Normal 98-110 [facility] Comment on above: Performed By: #### 1 0231, 0, 5363 #### [facility] [place] [address] Rural Electrification Engineer: Gelcaio Alonso MD CO2 [Moles/Vol] 28 mmol/L Normal 20-32 [facility] Comment on above: Performed By: #### 1 0231, 0, 5363 #### [facility] [place] [address] Rural Electrification Engineer: Gelacio Alonso MD Creatinine [Mass/Vol] 0.93 mg/dL Normal 0.70-1.[address] [facility] Comment on above: Result Comment: For patients >49 years of age, the reference limit for Creatinine is approximately 13% higher for people identified as -Danish. Performed By: #### 1 023, 0, 5363 #### [facility] [address], [address] [place] [address] Rural Electrification Engineer: Gelacio Alonso MD eGFR NON-AFR. ETHIOPIAN 88 mL/min/1.73m2 Normal > OR = 60 [facility] Comment on above: Performed By: #### 1 023, 0, 5363 #### [facility] [place] [address] Rural Electrification Engineer: Gelacio Alonso MD GFR/1.73 sq M.predicted among blacks MDRD (S/P/Bld) [Vol rate/Area] 102 mL/min/{1.73_m2} Normal > OR = 60 [facility] Comment on above: Performed By: #### 1 0231, 0, 5363 #### [facility] [address], [address] [place] [address] Rural Electrification Engineer: Gelacio Alonso MD Globulin (S) [Mass/Vol] 2.5 g/dL Normal 1.9-3.7 [facility] Comment on above: Performed By: #### 1 0231, 7600, 5363 #### [facility] [place] [address] Rural Electrification Engineer: Gelacio Alonso MD Glucose [Mass/Vol] 83 mg/dL Normal 65-99 [facility] Comment on above: Result Comment: Fasting reference interval Performed By: #### 1 0231, 7599, 5363 #### [facility] of [address], [address] [place] [address] Rural Electrification Engineer: Gelacio Alonso MD Potassium [Moles/Vol] 4.5 mmol/L Normal 3.5-5.3 [facility] Comment on above: Performed By: #### 1 023, 7599, 5363 #### [facility] of [address], [address] [place] [address] Rural Electrification Engineer: Gelacio Alonso MD Protein [Mass/Vol] 6.8 g/dL Normal 6.1-8.1 [facility] Comment on above: Performed By: #### 1 023, 7599, 5363 #### [facility] of [address], [address] [place] [address] Rural Electrification Engineer: Gelacio Alonso MD Sodium [Moles/Vol] 141 mmol/L Normal 135-146 [facility] Comment on above: Performed By: #### 1 023, 7599, 5363 #### [facility] of [place] [address] Rural Electrification Engineer: Gelacio Alonso MD Urea nitrogen [Mass/Vol] 20 mg/dL Normal 7-25 [facility] Comment on above: Performed By: #### 1 023, 7599, 5363 #### [facility] of [place] [address] Rural Electrification Engineer: Gelacio Alonso MD LIPID PANEL, [facility] 01-11 Cholesterol [Mass/Vol] 138 mg/dL Normal <200 [facility] Comment on above: Performed By: #### 1 023, 7599, 5363 #### [facility] of [address], [address] [place] [address] Rural Electrification Engineer: Gelacio Alonso MD Cholesterol in HDL [Mass/Vol] 49 mg/dL Normal > OR = 40 [facility] Comment on above: Performed By: #### 1 230, 7599, 5363 #### [facility] [place] [address] Rural Electrification Engineer: Gelacio Alonso MD Cholesterol in LDL [Mass/Vol] 73 mg/dL Normal [facility] Comment on above: Result Comment: Refe rence range: <100 Desirable range <100 mg/dL for primary prevention; <70 mg/dL for patients with CHD or diabetic patients with > or = 2 CHD risk factors. LDL-C is now calculated using the Jailyn calculation, which is a validated novel method providing better accuracy than the Friedewald equation in the estimation of LDL-C. Paul SS et al. JULEE. 2013;310(19): 7734-9643 (http://education.Ivantis.Lightwave Power/faq/DNV105) Performed By: #### 1 230, 7599, 5363 #### [facility] [place] [address] Rural Electrification Engineer: Gelacio Alonso MD Cholesterol.total/Chol esterol in HDL [Mass ratio] 2.8 {ratio} Normal <5.0 [facility] Comment on above: Performed By: #### 1 230, 7599, 5363 #### [facility] [place] [address] Rural Electrification Engineer: Gelacio Alonso MD NON HDL CHOLESTEROL 89 mg/dL (calc) Normal <130 [facility] Comment on above: Result Comment: For patients with diabetes plus 1 major ASCVD risk factor, treating to a non-HDL-C goal of <100 mg/dL (LDL-C of <70 mg/dL) is considered a therapeutic option. Performed By: #### 1 230, 7599, 5363 #### [facility] [place] [address] Rural Electrification Engineer: Gelacio Alonso MD Triglyceride [Mass/Vol] 79 mg/dL Normal <150 [facility] Comment on above: Performed By: #### 1 023, 7599, 5363 #### [facility] [address], [address] [place] [address] Rural Electrification Engineer: Gelacio Alonso MD PSA, TOTALon 02-04-2021 PSA, TOTAL 0.3 ng/mL Normal < OR = 4.0 [facility] Comment on above: Result Comment: The total PSA value from this assay system is standardized against the WHO standard. The test result will be approximately 20% lower when compared to the equimolar-standardized total PSA (Laurie [place]). Comparison of serial PSA results should be interpreted with this fact in mind. This test was performed using the Siemens chemiluminescent method. Values obtained from different assay methods cannot be used interchangeably. PSA levels, regardless of value, should not be interpreted as absolute evidence of the presence or absence of disease. Performed By: #### 1 0231, 7600, 5363 #### [facility] [address], [address] [place] [address] Rural Electrification Engineer: Gelacio Alonso MD Vital Signs Date Time Vital Sign Value Performing Clinician Faci lity 08-11-2023 10:59-0500 Body height 170.2 cm Day Obando AUTOMOTIVE STARTER REPAIRER-EYEGLASS LENS GENERATOR Work Phone: [facility] [employer] [facility] 08-11-2023 10:59-0500 Body mass index (BMI) [Ratio] 34.22 kg/m2 Day Obando AUTOMOTIVE STARTER REPAIRER-EYEGLASS LENS GENERATOR Work Phone: [facility] [employer] [facility] 08-11-2023 10:59-0500 Body temperature 97.5 [degF] Day Obando AUTOMOTIVE STARTER REPAIRER-EYEGLASS LENS GENERATOR Work Phone: [facility] [employer] [facility] 08-11-2023 10:59-0500 Body weight 99.11 kg Day Oabndo AUTOMOTIVE STARTER REPAIRER-EYEGLASS LENS GENERATOR [facility] 08-11-2023 10:59-0500 Diastolic blood pressure 78 mm[Hg] Day Obando AUTOMOTIVE STARTER REPAIRER-EYEGLASS LENS GENERATOR Work Phone: [facility] [employer] [facility] 08-11-2023 10:59-0500 Heart rate 84 /min Day Obando AUTOMOTIVE STARTER REPAIRER-EYEGLASS LENS GENERATOR Work Phone: [facility] 08-11-2023 10:59-0500 SaO2% (BldA) [Mass fraction] 95 % Day Obando AUTOMOTIVE STARTER REPAIRER-EYEGLASS LENS GENERATOR Work Phone: [facility] 08-11-2023 10:59-0500 Systolic blood pressure 112 mm[Hg] Day Obando AUTOMOTIVE STARTER REPAIRER-EYEGLASS LENS GENERATOR Work Phone: [facility] 07-31-2023 12:42-0500 SaO2% (BldA) [Mass fraction] 92 % Mike Ahammad DO Work Phone: [facility] [employer] 07-31-2023 11:40-0500 Body temperature 98.6 [degF] Mike Ahammad DO Work Phone: [facility] [employer] 07-31-2023 11:40-0500 Diastolic blood pressure 64 mm[Hg] [facility] [employer] 07-31-2023 11:40-0500 Heart rate 115 /min Mike Ahammad DO Work Phone: [facility] [employer] 07-31-2023 11:40-0500 Respiratory rate 11 /min Mike Ahammad DO Work Phone: [facility] [employer] 07-31-2023 11:40-0500 Systolic blood pressure 102 mm[Hg] Mike Ahammad [facility] [employer] 07-28-2023 12:39-0500 Body temperature 35.0 Mike Ahammad DO Work Phone: [facility] [employer] 07-28-2023 11:00-0500 Body temperature 37.0 Mike Ahammad DO Work Phone: [facility] [employer] 07-28-2023 10:16-0500 Body temperature 37.0 Mike Ahammad DO Work Phone: [facility] [employer] 07-28-2023 06:21-0500 Body height 170.2 [facility] Work Phone: [facility] 07-28-2023 06:21-0500 Body mass index (BMI) [Ratio] 33.52 kg/m2 [facility] Work Phone: [facility] 07-28-2023 06:21-0500 Body weight 97.07 kg [facility] Work Phone: [facility] Encounters Encounter Date Encounter Type Care Provider Facility Start: 12-28-2023 End: 12-28-2023 ambulatory [facility] Start: 12-01-2023 End: 12-01-2023 ambulatory [facility] Start: 11-27-2023 End: 11-29-2023 ambulatory [facility] Start: 11-27-2023 End: 11-29-2023 Subsequent hospital visit by physician Nikki Denton [facility] Comment on above: Lumbar disc disease with radiculopathy Start: 11-23-2023 End: 11-25-2023 Subsequent hospital visit by physician Keke Mckeon Dr Room 4 [facility] Comment on above: 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) Start: 11-23-2023 End: 11-25-2023 ambulatory [facility] Start: 11-13-2023 End: 12-11-2023 ambulatory [facility] Start: 11-01-2023 End: 11-01-2023 ambulatory [facility] Start: 10-17-2023 End: 11-11-2023 ambulatory [facility] Start: 10-12-2023 End: 11-11-2023 [facility] Start: 10-05-2023 End: 10-11-2023 [facility] Start: 09-26-2023 End: 10-11-2023 ambulatory [facility] Start: 09-22-2023 End: 09-24-2023 ambulatory BETHANY Rashid [facility] Start: 09-11-2023 End: 10-11-2023 ambulatory [facility] Start: 08-25-2023 Refill Daykaycee Obando AUTOMOTIVE STARTER REPAIRER-EYEGLASS LENS GENERATOR Work Phone: [facility] Start: 08-22-2023 Orders Only Day Shaw Topher AUTOMOTIVE STARTER REPAIRER-EYEGLASS LENS GENERATOR Work Phone: [facility] - Family [facility] Start: 08-14-2023 End: 09-11-2023 [facility] Start: 08-11-2023 End: 08-11-2023 Transitional care manage srvc 14 day discharge Day Shaw Topher AUTOMOTIVE STARTER REPAIRER-EYEGLASS LENS GENERATOR Work Phone: [facility] Comment on above: Type 2 diabetes ricardo itus without complication, without long- term current use of insulin ([facility]-H[facility]) (Primary Dx); Essential hypertension Start: 08-11-2023 End: 08-11-2023 [facility] Start: 08-07-2023 End: 08-11-2023 [facility] Start: 07-28-2023 End: 07-31-2023 Evaluation and management of inpatient Mike Townsend DO Work Phone: [address] Neuro Comment on above: 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) (Primary Dx) Start: 07-27-2023 End: 07-29-2023 ambulatory [facility] Start: 07-10-2023 End: 07-14-2023 ambulatory [facility] Start: 07-10-2023 End: 07-14-2023 Encounter for other preprocedural examination [facility] Start: 06-29-2023 End: 06-29-2023 [facility] Start: 06-14-2023 Refill Day Obando AUTOMOTIVE STARTER REPAIRER-EYEGLASS LENS GENERATOR Work Phone: [facility] Start: 06-07-2023 End: 06-09-2023 ambulatory MIKE TOWNSEND [facility] Start: 05-19-2023 End: 05-24-2023 ambulatory DAY OBANDO [facility] Start: 05-15-2023 End: 05-17-2023 ambulatory CUAUHTEMOC YODER [facility] Start: 04-03-2023 End: 04-04-2023 ambulatory Macey Monterroso MD Facility: [facility] Start: 03-20-2023 End: 03-21-2023 ambulatory Macey Monterroso MD Facility: [facility] Start: 12-08-2022 ambulatory NARENDRANATH LAKSHMIPATHY . Facility:[facility] Start: 11-01-2022 ambulatory NARENDRANATH LAKSHMIPATHY . Facility:[facility] Start: 10-25-2022 End: 10-25-2022 ambulatory NARENDRANATH LAKSHMIPATHY . Facility:[facility] Start: 10-13-2022 End: 10-14-2022 ambulatory NARENDRANATH LAKSHMIPATHY . Facility:[facility] Start: 09-27-2022 End: 09-27-2022 ambulatory NARENDRANATH LAKSHMIPATHY . Facility:[facility] Start: 09-15-2022 End: 09-16-2022 ambulatory NARENDRANATH LAKSHMIPATHY . Facility:[facility] Start: 08-30-2022 End: 08-30-2022 ambulatory NARENDRANATH LAKSHMIPATHY . Facility:[facility] Start: 08-09-2022 End: 08-10-2022 ambulatory DAY TOPHER Facility:[facility] Start: 08-03-2022 End: 08-04-2022 ambulatory DAY OBANDO Facility:[facility] Start: 04-21-2022 End: 04-22-[address] WALTER LITTLEJOHN Facility:[facility] Start: 01-20-2022 End: 01-21-2022 ambulatory DR WALTER LITTLEJOHN Facility:H1 Procedures Date Procedure Procedure Detail Performing Clinician Start: 11-27-2023 Radex spine lumbosac ral only bending 2/3 views Mike Ahammad DO Work Phone: Start: 08-11-2023 Follow-up visit Follow-up DAY BOANDO Start: 08-11-2023 Adult depression scr eening assessment Day Obando AUTOMOTIVE STARTER REPAIRER-EYEGLASS LENS GENERATOR Work Phone: Start: 07-31-2023 Glucose blood reagen t strip Mike Ahammad DO Work Phone: Start: 07-31-2023 Glucose blood reagen t strip Mike Ahammad DO Work Phone: Start: 07-31-2023 BASIC METABOLIC PANE L W/ REFLEX TO MG FOR LOW K Soraida Frias MD Work Phone: Start: 07-31-2023 Blood count complete auto&auto difrntl wbc Soraida Frias MD Work Phone: Start: 07-31-2023 Lipid panel Tal Rice MD Work Phone: Start: 07-30-2023 Glucose blood reagen t strip Mike Ahammad DO Work Phone: Start: 07-30-2023 Glucose blood reagen t strip Mike Ahammad DO Work Phone: Start: 07-30-2023 Ct thorax w/contrast material Shilpa LOUISE Work Phone: Start: 07-30-2023 Glucose blood reagen t strip Mike Ahammad DO Work Phone: Start: 07-30-2023 Glucose blood reagen t strip Mike Ahammad DO Work Phone: Start: 07-29-2023 Glucose blood reagen t strip Mike Ahammad DO Work Phone: Start: 07-29-2023 Glucose blood reagen t strip Mike Ahammad DO Work Phone: Start: 07-29-2023 Radex spine cervical 2 or 3 views Ross White PA-C Work Phone: Start: 07-29-2023 Radiologic exam ches t single view Tal Rice MD Work Phone: Start: 07-29-2023 Glucose blood reagen t strip Mike Ahammad DO Work Phone: Start: 07-29-2023 BASIC METABOLIC PANE L W/ REFLEX TO MG FOR LOW K Tal Rice MD Work Phone: Start: 07-29-2023 End: 07-29-2023 Hemoglobin glycosylated a1c Tal Rice MD Work Phone: Start: 07-28-2023 Ecg routine ecg w/le ast 12 lds w/i&r Isabel Anaya MD Work Phone: Start: 07-28-2023 Glucose blood reagen t strip Mike Ahammad DO Work Phone: Start: 07-28-2023 Glucose blood reagen t strip Mike Ahammad DO Work Phone: Start: 07-28-2023 Glucose blood reagen t strip Mike Ahammad DO Work Phone: Start: 07-28-2023 Calcium ionized Mike Ahammad DO Work Phone: Start: 07-28-2023 OPEN HEART PANEL Mike Ahammad DO Work Phone: Start: 07-28-2023 Fluoroscopy during operation Mike Ahammad DO Work Phone: Start: 07-28-2023 End: 07-28-2023 Calcium ionized Mike Ahammad DO Work Phone: Start: 07-28-2023 End: 07-28-2023 OPEN HEART PANEL Mike Ahammad DO Work Phone: Start: 07-28-2023 End: 07-28-2023 Arthrodesis pst/pstlat cervical belw c2 sgm Mike Ahammad DO Work Phone: Start: 07-28-2023 Gluc bld gluc mntr d ev cleared fda spec home use Mike Ahammad DO Work Phone: Start: 07-28-2023 Potassium [Moles/vol ume] in Serum or Plasma Mike Ahammad DO Work Phone: Start: 03-30-2023 Adult depression scr eening assessment Day Obando AUTOMOTIVE STARTER REPAIRER-EYEGLASS LENS GENERATOR Work Phone: Plan of Treatment Date Care Activity Detail Author Start: 01-11-2026 Screening for malign ant neoplasm of colon Colon Cancer Screening 3 Year Cologuard [facility] Start: 03-03-2025 DTaP,Tdap and Td Vaccines (4 - Td or Tdap) DTaP,Tdap and Td Vaccines (4 - Td or Tdap) [facility] Start: 03-03-2025 DTaP/Tdap/Td vaccine (4 - Td or Tdap) DTaP/Tdap/Td vaccine (4 - Td or Tdap) [facility] Start: 08-10-2024 Adult BMI Screening Adult BMI Screen [facility] Start: 08-10-2024 Depression Screening Depression Scre [facility] Start: 08-10-2024 Tobacco Screening Tobacco Screening [facility] Start: 07-31-2024 GFR test (Diabetes, CKD 3-4, OR last GFR 15-59) GFR test (Diabetes, CKD 3-4, OR last GFR 15-59) [facility] Start: 07-31-2024 Lipid panel Lipids [facility] Start: 07-29-2024 Hemoglobin A1c measurement A1C test (Diabetic or Prediabetic) [facility] Start: 03-30-2024 Adult BMI Screening Adult BMI Screen ing [facility] Start: 03-30-2024 Depression Screening Depression Scre [facility] Start: 03-30-2024 Tobacco Screening Tobacco Screening [facility] Start: 02-19-2024 End: 02-19-2024 Patient encounter procedure 02/19/2024 1:30 PM EDT Office Visit [place] [id number] - [address] Floor, [facility] [place] [id number] Mike Townsend, DO [address] [place] [phone] Scoli & Flex ext xrays [facility] Comment on above: Scoli & Flex ext xra ys Start: 01-11-2024 Influenza vaccination Flu vacc ine (Season Ended) [facility] Start: 11-27-2023 End: 11-27-2023 Patient encounter procedure 11/27/2023 11:00 AM EDT Office Visit [place] [id number] - [address] Floor, [address] [address] Mike Townsend DO [address] [address] [address] Print PT OT [facility] Comment on above: Print PT OT Start: 11-10-2023 End: 11-10-2023 Patient encounter procedure 11/10/2023 8:40 AM EDT Office Visit [facility] [address] [place] [address] Day Obando, AUTOMOTIVE STARTER REPAIRER-EYEGLASS LENS GENERATOR [address] [place] [address] [facility] Start: 09-25-2023 End: 09-25-2023 Patient encounter procedure 09/25/2023 11:00 AM EDT Office Visit [place] [id number] - Ground Floor, [facility] [place] [phone] Mike Townsend, DO [address] [place] [phone] 8 wk post op [facility] Comment on above: 8 wk post op Start: 08-14-2023 End: 08-14-2023 Patient encounter procedure 08/14/2023 9:30 AM EST Office Visit [facility] [address] [facility] [address] - Ground Floor, [address] [place] [phone] Bethany Burleson, AUTOMOTIVE STARTER REPAIRER - EYEGLASS LENS GENERATOR [address] [facility] [address] [place], [place] [id number] 2 wk post op-ahammad [facility] Comment on above: 2 wk post op-ahammad Start: 06-29-2023 End: 06-29-2023 Patient encounter procedure 06/29/2023 9:00 AM EST [facility] [address] [facility] [place] [address] Day Obando, AUTOMOTIVE STARTER REPAIRER-EYEGLASS LENS GENERATOR [address] [place] [address] [facility] Start: 02-10-2023 COVID-19 Vaccine ( season) COVID-19 Vaccine ( season) [facility] Start: 02-10-2023 Influenza vaccination Influenza Vacc ine [facility] Start: 01-10-2023 Influenza vaccination Flu vaccine (# 1) [facility] Start: 2019 Respiratory Syncytia l Virus (RSV) or age 60 yrs+ (1 - 1-dose 60+ series) Respiratory Syncytial Virus (RSV) or age 60 yrs+ (1 - 1-dose 60+ series) [facility] Start: 2009 Administration of varicella zoster vaccine Zoster (Shingles) Vaccine (1 of 2) [facility] Start: 2009 Screening for malign ant neoplasm of lung Low dose CT lung screening &/or counseling [facility] Start: 2009 Shingles vaccine (1 of 2) Shingles vaccine (1 of 2) [facility] Start: 01-26-2004 Screening for malign ant neoplasm of colon [facility] Start: 1977 Adult BMI Follow Up Plan Adult BMI Follow Up Plan [facility] Start: 1977 Diabetic foot examination Diabetic Foot Exam [facility] Start: 1977 Glaucoma screening Diabetic retinal exam [facility] Start: 1977 Hepatitis C screening Hepatitis C sc reen [facility] Start: 1977 Urine screening for protein Diabetic Alb to Cr ratio (uACR) test [facility] Start: 1974 HIV screening HIV screen [facility] Start: 1971 Depression Screen Depression Screen [facility] Start: 1969 Diabetic foot examination Diabetic foot exam [facility] Start: 1965 Pneumococcal 0-64 ye ars Vaccine (1 - PCV) Pneumococcal 0-64 years Vaccine (1 - PCV) [facility] Start: 1965 Pneumococcal 0-64 ye ars Vaccine (1 of 2 - PCV) Pneumococcal 0-64 years Vaccine (1 of 2 - PCV) [facility] Start: 1959 COVID-19 Vaccine (#1) COVID-19 Vacci ne (#1) [facility] Start: 1959 Glaucoma screening Diabetic Op hthalmology Exam [facility] Start: 1959 Urine screening for protein Urine Microalbumin [facility] End: 07-28-2023 Glucose [Mass/volume] in Serum or Plasma [facility] Comment on above: 4X Daily (AC & HS) u ntil discontinued starting 07/28/2023 One Time for 1 Occur rences starting 07/28/2023 until 07/28/2023 As Needed until disc ontinued starting 07/28/2023 Oxygen therapy [[facility] Data Set] Initiate Oxygen Therapy Protocol Respiratory Care Routine As Needed until discontinued starting 07/28/2023 [facility] Comment on above: As Needed until disc ontinued starting 07/28/2023 Spirometry panel Incentive jerome metry Respiratory Care Routine Every 2hr while awake until discontinued starting 07/28/2023 [facility] Comment on above: Every 2hr while awak e until discontinued starting 07/28/2023 Spirometry panel Incentive jerome metry RT Respiratory Care Routine Every 2hr while awake until discontinued starting 07/29/2023 [facility] Comment on above: Every 2hr while awak e until discontinued starting 07/29/2023 End: 11-23-2023 XR Cervical spine 2 or 3 Views [facility] Work Phone: Comment on above: 1 Occurrences starti ng 11/23/2023 until 11/23/2023 Immunizations Immunization Date Immunization Notes Care Provider Gilma cantu 03-03-2015 tetanus toxoid, redu latricia diphtheria toxoid, and acellular pertussis vaccine, adsorbed Day Topher AUTOMOTIVE STARTER REPAIRER-EYEGLASS LENS GENERATOR Work Phone: [employer] 05-26-2013 tetanus toxoid, redu latricia diphtheria toxoid, and acellular pertussis vaccine, adsorbed Day Topher AUTOMOTIVE STARTER REPAIRER-EYEGLASS LENS GENERATOR Work Phone: [employer] 07-05-2011 tetanus toxoid, redu latricia diphtheria toxoid, and acellular pertussis vaccine, adsorbed Day Topher AUTOMOTIVE STARTER REPAIRER-EYEGLASS LENS GENERATOR Work Phone: [employer] Work Phone: Payers Date Payer Category Payer Private Health Insurance [facility] [id number] 2022-Present [phone] [address] [address] [place] [address] [id number] 2022 Unknown 1959 Medicare [id number] 1959 Unknown [id number] 1959 Unknown [id number] 1959 Unknown [id number] 2.16.840.1.689208.3.579. 2.593 1959 Unknown [id number] 2.16.840.1.117450.3.579. 2.593 1959 Unknown [id number] 2.16.840.1.338906.3.579. 2.593 1959 Unknown [id number] 2.16.840.1.498619.3.579. 2.593 1959 Unknown [id number] 2.16.840.1.270492.3.579. 2.593 1959 Unknown [id number] 2.16.840.1.359752.3.579. 2.593 1959 Unknown [id number] 2.16.840.1.222789.3.579. 2.593 1959 Unknown [id number] 2..840.1.851554.3.579. 2.593 1959 Unknown [id number] 2..840.1.089052.3.579. 2.59 1959 Unknown [id number] 2..840.1.560196.3.579. 2.593 1959 Unknown [id number] 2..840.1.032939.3.579. 2.593 1959 Unknown [id number] 2..840.1.537375.3.579. 2.593 1959 Unknown [id number] 2..840.1.475628.3.579. 2.593 1959 Unknown [id number] 2.16.840.1.898630.3.579. 2.593 1959 Unknown [id number] 2.16.840.1.010869.3.579. 2.196 1959 Unknown [id number] 2.16.840.1.865261.3.579. 2.196 1959 Unknown [id number] 2.16.840.1.477940.3.579. 2.177 1959 Unknown [id number] 2.16.840.1.143946.3.579. 2.173 1959 Unknown [id number] 2.16.840.1.331057.3.579. 2.173 1959 Unknown [id number] 2.16.840.1.575151.3.579. 2.173 1959 Unknown [id number] 2.16.840.1.090933.3.579. 2.173 1959 Unknown [id number] 2.16.840.1.063009.3.579. 2.173 1959 Unknown [id number] 2.16.840.1.261193.3.579. 2.175 1959 Unknown [id number] 2..840.1.811116.3.579. 2.175 1959 Unknown [id number] 2.16.840.1.984287.3.579. 2.175 1959 Unknown [id number] 2.16.840.1.715649.3.579. 2.175 1959 Unknown [id number] 2.16.840.1.390787.3.579. 2.175 1959 Unknown [id number] 2.840.1.745583.3.579. 2.175 1959 Unknown [id number] 2.16.840.1.554514.3.579. 2.1286 1959 Unknown [id number] 2.16.840.1.116930.3.579. 2.1285 1959 Unknown [id number] 2.16.840.1.219701.3.579. 2.128 1959 Unknown [id number] 2.16.840.1.045865.3.579. 2.128 1959 Unknown [id number] 2.16.840.1.494840.3.579. 2.1285 1959 Unknown [id number] 2.16.840.1.356645.3.579. 2.1285 1959 Unknown [id number] 2.16.840.1.270492.3.579. 2.1285 1959 Unknown [id number] 2.16.840.1.227915.3.579. 2.1285 1959 Unknown [id number] 2.16.840.1.362031.3.579. 2.1285 1959 Unknown [id number] 2.16.840.1.497189.3.579. 2.1285 1959 Unknown [id number] 2.16.840.1.171138.3.579. 2.1285 1959 Unknown [id number] 2.16.840.1.448954.3.579. 2.1285 1959 Unknown [id number] 2.16.840.1.229581.3.579. 2.1286 Social History Date Type Detail Facility Start: 07-07-2022 End: 06-07-2023 Tobacco smoking status NHIS Ex-smoker [facility] Start: 06-18-1998 End: 06-18-2018 History of tobacco use Current smoker [facility] Start: 06-18-1998 End: 06-18-2018 History of tobacco use Cigarette Smoker [facility] Start: 07-07-2022 End: 07-10-2023 Cigarettes smoked current (pack per day) - Reported 1.5 [facility] Start: 07-07-2022 End: 06-07-2023 Tobacco use and exposure Smokeless tobacco non-user [facility] Start: 03-30-2023 End: 08-11-2023 Alcohol intake Current non-drinker of alcohol (finding) [facility] Start: 09-17-2018 End: 07-10-2023 Alcohol Use Disorder Identification Test - Consumption [AUDIT-C] [facility] Frequency of Alcohol Consumption Never [facility] Start: 1960 Sex Assigned At Not on file P [employer] Start: 07-31-2023 End: 08-14-2023 Alcohol intake Lifetime non-drinker (finding) [facility] Has the electric, ga s, oil, or water company threatened to shut off services in your home in past 12Mo No [place] [facility] (I/We) worried wheth er (my/our) food would run out before (I/we) got money to buy more. Never true [facility] Medical Equipment Procedure Code Equipment Code Equipment Origin al Text Equipment Identifier Dates Brng Tib 55gth50 mm 0d Kn Ant - [id number] Start: 03-27-2019 Cmnt Bn Bio 40gm Rpl [id number] - [id number] Start: 03-27-2019 Cmpt Ptlr Thn 31 mm 3 Pg Kn Ser - [id number] Start: 03-27-2019 Impl Spine Chapin Symphony 4.0mm 240mm - [id number] Start: 07-28-2023 Screw Spnl Polya x 5.5x30 Mm Oct For 4 Mm Chapin Ns Sym - [id number] Start: 07-28-2023 Screw Spnl Polya x 5.5x32 Mm Oct For 4 Mm [place] Ns Sym - [id number] Start: 07-28-2023 Screw Spnl 3.5x1 4mm Symphony - [id number] Start: 07-28-2023 Screw Spinal F/Symphony Oct System - [id number] Start: 07-28-2023 Goals Date Patient Goal Desired Activity /State Personal health goal Comment on above: Formatting of this n ote might be different from the original. Evaluation of progress towards goal: Maximize work w pt at discharge to strengthen lt knee Clinical Notes 01-20-2022 to 08-11-2023 DINORA Contreras - 08/11/2023 10:30 AM Pedro Olson APRN - CNP - 07/31/2023 1:19 PM Donna Gipson PT - 07/31/2023 12:52 PM Jude Mcghee MD - 07/31/2023 11:01 AM EST Note Date & Type Note Facility 08-11-2023 History of Present illness Narrative Images from the original note were not included. Subjective Patient ID: Kedar Ocasio is a 63 y.o. male. The patient is here today for discharge follow up from hospital. Transition of Care Med Rec completed? Yes Discharged medications: Medications have been reviewed and reconciled with the most recent facility discharge document. HPI Pt recently underwent neck surgery - status post posterior lateral arthrodesis C3-T2, laminectomy for decompression C3-T1, T1 diskectomy 14 days ago. He was discharged from the hospital 08/01 and presents with his today in a neck brace. He was started on Lopressor 12.5mg BID while in hospital for tachycardia and was told he had some low O2 levels at night and possibly some sleep apnea. has observed him stop breathing at times, he snores loudly and has daytime sleepiness. Currently his pain is 4/10 but goes up if he moves. He is taking diclofenac, tramadol, Neurontin and Skelaxin for pain. His blood glucose has been in in the 150s and underwent in the hospital. He is continuing physical therapy for at least 20 more visits. He has not yet cleared to drive by Neurosurgery because he is still in a stabilization collar. He has a follow-up with neurosurgery on Monday. Patient has had no redness edema or discharge from his staple sites in his posterior neck. The following portions of the patient's history were reviewed and updated as appropriate: allergies, current medications, past family history, past medical history, past social history, past surgical history, problem list, and medication reconciliation was completed including current medication and post discharge medication. Review of Systems Constitutional: Positive for unexpected weight change (4lb weight gain since last appt.). HENT: Negative. Respiratory: Negative. Cardiovascular: Negative. Gastrointestinal: Negative. Musculoskeletal: Positive for back pain, myalgias, neck pain and neck stiffness. Neurological: Positive for weakness. Negative for dizziness, light-headedness, numbness and headaches. Objective Physical Exam Vitals reviewed. 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 Constitutional: General: He is not in acute distress. Appearance: Normal appearance. He is obese. HENT: Head: Normocephalic and atraumatic. Neck: Comments: Line of nina as marked on diagram above. Skin surrounding incision without erythema swelling or warmth and no drainage from incision site Patient took off neck brace for a short time for me to inspect the nina Cardiovascular: Rate and Rhythm: Normal rate and regular rhythm. Heart sounds: Normal heart sounds. Pulmonary: Effort: Pulmonary effort is normal. Breath sounds: Normal breath sounds. Abdominal: General: Bowel sounds are normal. Palpations: Abdomen is soft. Tenderness: There is no abdominal tenderness. Musculoskeletal: Cervical back: Rigidity (very little ROM due to recent surgery) present. Right lower leg: No edema. Left lower leg: No edema. Skin: General: Skin is warm. Capillary Refill: Capillary refill takes less than 2 seconds. Neurological: General: No focal deficit present. Mental Status: He is alert and oriented to person, place, and time. Gait: Gait normal. Psychiatric: Mood and Affect: Mood normal. Behavior: Behavior normal. Assessment/Plan Kedar was seen today for follow-up. Diagnoses and all orders for this visit: Type 2 diabetes mellitus without complication, without long-term current use of insulin ([facility]) Essential hypertension Other orders - metoprolol tartrate (LOPRESSOR) 25 mg tablet; Take 0.5 tablets (12.5 mg total) by mouth in the morning and 0.5 tablets (12.5 mg total) before bedtime. Reviewed all labs and new meds from recent hospital stay with pt and . Agree with B-reji as he is having no adverse side effects and BP and HR control are great. Will refill, no changes. His pain is currently well controlled and he has no signs/symptoms of infection from surgical site. Will have him F/u in 3 mo to discuss getting sleep study and DM management. DINORA Contreras 08/14/23 1023 documented in this encounter [facility] [employer] 07-31-2023 Hospital course Narrative Images from the original note were not included. Department of Neurosurgery Discharge Summary PATIENT NAME: Kedar Ocasio BIRTHDATE: 1960 DATE: 07/31/2023 PRIMARY CARE PHYSICIAN: Day Obando APRN - JULIA DISCHARGE DATE: 07/31/2023 DISCHARGE DIAGNOSIS: Stenosis of cervical spine with myelopathy Patient Active Problem List Diagnosis Code 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) M48.02, G99.2 Primary hypertension I10 Type 2 diabetes mellitus ([facility]) E11.9 DISPOSITION: Home PROCEDURES: Posterior lateral arthrodesis at C3, C4, C5, C6, C7, T1, T2 Laminectomy to decompress the spinal cord at C3, C4, C5, C6, C7, T1 Left-sided T1 transpedicular discectomy HOSPITAL COURSE Kedar Ocasio originally presented to the hospital on 07/28/2023 5:37 AM with cervical stenosis with myelopathy. He was admitted and taken to the OR for neurosurgery for procedure listed above. Patients post op x-rays were stable without any complications. Patient's drain was removed when found to have low output without complications on 07/30/2023. Patient tolerated all procedures well. Labs and imaging were followed daily. At time of discharge, Kedar Ocasio was tolerating a ADULT DIET; Regular; 4 carb choices (60 gm/meal), having bowel movements, ambulating on his own accord and had adequate analgesia on oral pain medications, and had no signs of symptoms of complications. Patient had physical therapy assess him again this morning to work on stairs specifically as he has plans to go home with . He is medically stable to be discharged. PHYSICAL EXAMINATION Discharge Vitals: height is 1.702 m (5' 7 ) and weight is 97.1 kg (214 lb). His oral temperature is 98.6 F (37 C). His blood pressure is 102/64 and his pulse is 115 (abnormal). His respiration is 11 and oxygen saturation is 92%. AOx3 CNII-XII intact PERRL, EOMI CVS: normal s2/s1 Respiratory: equal air entry bilaterally Abdomen: soft, no rigidity Motor and sensory intact all over LABS Recent Labs 07/29/23 0614 07/31/23 0556 WBC 12.2* 8.6 HGB 15.5 15.3 HCT 46.7 45.5 PLT 243 234 NA 137 133* K 4.4 3.7 CL 105 98 CO2 21 24 BUN 14 14 CREATININE 0.8 0.6* DISCHARGE INSTRUCTIONS Discharge Medications: Medication List START taking these medications metoprolol tartrate 25 MG tablet Commonly known as: LOPRESSOR Take 0.5 tablets by mouth 2 times daily oxyCODONE-acetaminophen 5-325 MG per tablet Commonly known as: Percocet May take 1 tablet by mouth every 6 hours as needed for Pain. May also take 2 tablets every 6 hours as needed for Pain. Do all this for 7 days. Intended supply: 7 days. Take lowest dose possible to manage pain. Max Daily Amount: 8 tablets. CONTINUE taking these medications amLODIPine 10 MG tablet Commonly known as: NORVASC DAILY VITAMINS PO diclofenac 75 MG EC tablet Commonly known as: VOLTAREN empagliflozin 10 MG tablet Commonly known as: JARDIANCE lisinopril-hydroCHLOROthiazide 20-12.5 MG per tablet Commonly known as: PRINZIDE;ZESTORETIC lovastatin 10 MG tablet Commonly known as: MEVACOR metaxalone 800 MG tablet Commonly known as: SKELAXIN metFORMIN 500 MG tablet Commonly known as: GLUCOPHAGE potassium chloride 10 MEQ extended release tablet Commonly known as: KLOR-CON Vitamin D3 50 MCG (1999 [place]) Caps STOP taking these medications HYDROcodone-acetaminophen 5-325 MG per tablet Commonly known as: NORCO naloxone 4 MG/0.1ML Liqd nasal spray ASK your doctor about these medications * gabapentin 300 MG capsule Commonly known as: NEURONTIN Ask about: Which instructions should I use? * gabapentin 600 MG tablet Commonly known as: NEURONTIN Ask about: Which instructions should I use? * This list has 2 medication(s) that are the same as other medications prescribed for you. Read the directions carefully, and ask your doctor or other care provider to review them with you. Where to Get Your Medications These medications were sent to [address] - P [phone] - F [phone] [facility] [id number] metoprolol tartrate 25 MG tablet oxyCODONE-acetaminophen 5-325 MG per tablet Diet: ADULT DIET; Regular; 4 carb choices (60 gm/meal) diet as tolerated Activity: Provided in AVS Wound Care: Daily and as needed Follow-up: in the NSG clinic as shown in AVS Time Spent for discharge: 30 minutes JULIETTE Dominique CNP 07/31/2023, 1:19 PM documented in this encounter [facility] 07-31-2023 History of Present illness Narrative Physical Therapy Facility/Department: [address] [facility] Physical Therapy Progress Note Name: Kedar Ocasio : 1960 Date of Service: 07/31/2023 Discharge Recommendations: Patient would benefit from continued therapy after discharge PT Equipment Recommendations Equipment Needed: Yes Mobility Devices: Walker Walker: Rolling Other: pt already has a rwalker and a rollator, per pt and spouse Assessment Pt cooperative, motivated, wants to go on stairs b/c he wants to be DC'd home. present for bed mobility/transfers/gait and stairs and feels comfortable with pt returning home with family assistance. Bed mob min A, pt/ able to don/doff c-collar appropriately. Transfers supervision, gait 5'x2 (limited distance to preserve endurance/strength for stair ambulation); stair ambulation 6 6 steps B HRs supervision, 4 6 steps with R only HR, supervision--didn't continue with last rep of steps d/t pt doing very well, and increasing pain. Pt safe for home DC with family assistance, OP vs home PT. Body Structures, Functions, Activity Limitations Requiring Skilled Therapeutic Intervention: Decreased functional mobility ;Decreased tolerance to work activity;Decreased endurance;Decreased sensation;Decreased balance;Decreased fine motor control;Decreased coordination;Increased pain;Decreased posture Therapy Prognosis: Good Decision Making: Medium Complexity Requires PT Follow-Up: Yes Activity Tolerance Activity Tolerance: Patient limited by pain Activity Tolerance Comments: pt cooperative, motivated, neck and upper shoulders increase pain the longer he is upright, limiting distance he's able to ambulate Plan Physical Therapy Plan General Plan: 6-7 times per week Current Treatment Recommendations: Strengthening, ROM, Balance training, Functional mobility training, Transfer training, Endurance training, Gait training, Stair training, Neuromuscular re-education, Pain management, Home exercise program, Safety education & training, Patient/Caregiver education & training, Equipment evaluation, education, & procurement, Positioning, Therapeutic activities Safety Devices Type of Devices: Left in bed, Gait belt, Call light within reach, Nurse notified, Patient at risk for falls Restraints Restraints Initially in Place: No Restrictions Restrictions/Precautions Restrictions/Precautions: Surgical Protocols, Fall Risk, Up as Tolerated Required Braces or Orthoses?: Yes Required Braces or Orthoses Cervical: c-collar Subjective Pain: 5/10 at rest prior to stairs; 12/10 after doing stairs; 3/10 once back to bed, full support General Patient assessed for rehabilitation services?: Yes Response To Previous Treatment: Patient with no complaints from previous session. Family / Caregiver Present: Yes () Follows Commands: Within Functional Limits Subjective Subjective: 1st attempt pt's pain 8/10; arranged to return an hour after his next pain meds due; PT returned at 12:15--pain 5/10 Cognition Orientation Overall Orientation Status: Within Normal Limits Orientation Level: Oriented X4 Cognition Overall Cognitive Status: WNL Objective Pulse: (!) 115 Heart Rate Source: Monitor BP: 102/64 BP Location: Left upper arm BP Method: Automatic MAP (Calculated): 77 Respirations: 11 SpO2: 92 % O2 Device: None (Room air) (pt on nasal canula upon PT arrival; taken off, O2 sats 94%; after ambulating and walking on stairs, O2 sats 92%.) Temp: 98.6 F (37 C) Observation/Palpation Posture: Fair (forward posture) Bed mobility Rolling to Right: Minimal assistance ( assisted--will be helping at home) Supine to Sit: Minimal assistance ( assisted) Sit to Supine: Stand by assistance (HOB flat, use of bed rail, log roll) Scooting: Minimal assistance Bed Mobility Comments: present and able to help pt as pt needed/requested Transfers Sit to Stand: Supervision Stand to Sit: Supervision Bed to Chair: Supervision Stand Pivot Transfers: Supervision Comment: use of rwalker for transfers Ambulation Surface: Level tile Device: Rolling Walker Assistance: Supervision Quality of Gait: forward flexed posture Gait Deviations: Decreased step length;Decreased step height;Decreased arm swing Distance: 5'x2 Comments: limited distance walked d/t wanting to save pt's strength for steps Stairs/Curb Stairs?: Yes Stairs # Steps : 6 (pt went up/down 6 6 steps with B HRs, supervision; he went up/down 4 6 steps with just R HR (to simulate home situation) with supervision (we did fewer steps with 1 HR d/t increased neck/upper shoulder pain when upright)) Stairs Height: 6 Rails: Bilateral (B x 6 steps, R x 4 steps) Device: No Device Assistance: Supervision Comment: increased neck and upper shoulder strength, but pt was safe on the steps with supervision Wheelchair Activities Wheelchair Parts Management: No Propulsion: No Balance Posture: Fair Sitting - Static: Good Sitting - Dynamic: Good Standing - Static: Fair Standing - Dynamic: Fair Comments: with rwalker [facility] - [facility] -[facility] Basic Mobility - Inpatient How much help is needed turning from your back to your side while in a flat bed without using bedrails?: A Little How much help is needed moving from lying on your back to sitting on the side of a flat bed without using bedrails?: A Little How much help is needed moving to and from a bed to a chair?: A Little How much help is needed standing up from a chair using your arms?: None How much help is needed walking in hospital room?: A Little How much help is needed climbing 3-5 steps with a railing?: A Little [facility] Inpatient Mobility Raw Score : 19 [facility] Inpatient T-Scale Score : 45.44 Mobility Inpatient CMS 0-100% Score: 41.77 Mobility Inpatient [facility] G-Code Modifier : CK Goals Short Term Goals Time Frame for Short Term Goals: 14 visits Short Term Goal 1: bed mobility with min A+1 Short Term Goal 2: transfers independently Short Term Goal 3: gait with rwalker x 100' Short Term Goal 4: stair ambulation x 12 steps with 1 HR and min A+1 Short Term Goal 5: able to don/doff c-collar with spouse assistance to eat and for hygiene Patient Goals Patient Goals : decrease pain, be able to walk better Education Patient Education Education Given To: Patient;Family Education Provided: Role of Therapy;Plan of Care;Home Exercise Program;Precautions;Transfer Training;Family Education;Equipment;Fall Prevention Strategies Education Provided Comments: log roll, overall safe functional mobility technique, correct fit for c-collar (adjusted prior to OOB) Education Method: Demonstration;Verbal;Teach Back Barriers to Learning: None Discussed home situation, level of assistance, plan; pt and appear realistic, pt has lift chair available if needed for sleeping, but is getting into/out of bed with min A. Questions answered. Therapy Time Individual Concurrent Group Co-treatment Time In 1215 Time Out 1238 Minutes 23 Timed Code Treatment Minutes: 23 Minutes Robbi Thompson PT Images from the original note were not included. [facility] Internal Medicine Teaching Residency Program Inpatient Daily Progress Note Patient: Kedar Ocasio Date of : 1960 Acct: [id number] Room: [facility]010- Admit date: 07/28/2023 Today's date: 07/31/23 Number of days in the hospital: 3 SUBJECTIVE Admitting Diagnosis: 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) CC: Bilateral upper extremity weakness Pt examined at bedside. Chart & results reviewed. No acute issues overnight Patient also hemodynamically stable Denies any new complaints today Reports eating a functioning well, no issues with urination Has been tachycardic, sinus tach, blood pressure okay, afebrile Labs this morning insignificant ROS: Constitutional: negative for chills, fevers, sweats Respiratory: negative for cough, dyspnea on exertion, hemoptysis, shortness of breath, wheezing Cardiovascular: negative for chest pain, chest pressure/discomfort, lower extremity edema, palpitations Gastrointestinal: negative for abdominal pain, constipation, diarrhea, nausea, vomiting Neurological: negative for dizziness, headache BRIEF HISTORY The patient is a pleasant 63 y.o. male presents with past medical history of cervical spondylosis, hypertension, former smoker, diabetes mellitus, obesity with a chief complaint of elective posterior C2 -T2 fusion and decompression. Patient was admitted under neurosurgery service. IM was consulted for the management of hypertension diabetes mellitus Patient has been ongoing with bilateral upper extremity numbness/tingling, weakness, symptoms were eventually progressing to the immediately as well. Patient did complain of some sternal pain as well with restricted ROM of cervical spine. Patient did try but failed conservative treatment over time including pain management injections. He was scheduled for C2-T2 posterior fusion, decompression. On my evaluation today patient was AOx4, afebrile, hemodynamically stable, slightly tachycardic, and pain with cervical collar on the neck. Labs reviewed suggestive of unremarkable BMP with blood glucose 200. OBJECTIVE Vital Signs: BP 134/79 Pulse (!) 110 Temp 98.1 F (36.7 C) (Oral) Resp 11 Ht 1.702 m (5' 7 ) Wt 97.1 kg (214 lb) SpO2 95% BMI 33.52 kg/m Temp (24hrs), Av.2 F (36.8 C), Min:97.9 F (36.6 C), Max:98.4 F (36.9 C) In: - Out: 390 [Urine:300; Drains:90] Physical Exam: Physical Exam Constitutional: Appearance: Normal appearance. HENT: Head: Comments: Has cervical collar on Cardiovascular: Rate and Rhythm: Regular rhythm. Tachycardia present. Pulmonary: Effort: No respiratory distress. Breath sounds: Normal breath sounds. No wheezing. Abdominal: General: There is no distension. Palpations: Abdomen is soft. Tenderness: There is no abdominal tenderness. Musculoskeletal: General: No swelling. Normal range of motion. Right lower leg: No edema. Left lower leg: No edema. Skin: General: Skin is warm. Coloration: Skin is not jaundiced. Findings: No bruising or rash. Neurological: Mental Status: He is alert and oriented to person, place, and time. Mental status is at baseline. Psychiatric: Mood and Affect: Mood normal. Behavior: Behavior normal. Medications: Scheduled Medications: metoprolol tartrate 12.5 mg Oral BID cyclobenzaprine 10 mg Oral TID gabapentin 300 mg Oral 6 times per day [Held by provider] amLODIPine 10 mg Oral Daily Vitamin D 2,000 Units Oral Daily atorvastatin 10 mg Oral Daily potassium chloride 10 mEq Oral Daily sodium chloride flush 5-40 mL IntraVENous 2 times per day acetaminophen 650 mg Oral Q6H famotidine 20 mg Oral BID Or famotidine (PEPCID) injection 20 mg IntraVENous BID polyethylene glycol 17 g Oral Daily enoxaparin 40 mg SubCUTAneous Daily insulin lispro 0-4 Units SubCUTAneous TID insulin lispro 0-4 Units SubCUTAneous Nightly lisinopril 40 mg Oral Daily And hydroCHLOROthiazide 25 mg Oral Daily Continuous Infusions: sodium chloride dextrose PRN Medicationssodium chloride flush, 5-40 mL, PRN sodium chloride, , PRN oxyCODONE, 5 mg, Q4H PRN Or oxyCODONE, 10 mg, Q4H PRN bisacodyl, 10 mg, Daily PRN senna, 1 tablet, Daily PRN glucose, 4 tablet, PRN dextrose bolus, 125 mL, PRN Or dextrose bolus, 250 mL, PRN glucagon (rDNA), 1 mg, PRN dextrose, , Continuous PRN Diagnostic Labs: CBC: Recent Labs 07/28/23 1229 07/29/23 0614 07/31/23 0556 WBC -- 12.2* 8.6 RBC -- 4.93 4.89 HGB 15.4 15.5 15.3 HCT 47.0 46.7 45.5 MCV -- 94.7 93.0 RDW -- 12.2 11.9 PLT -- 243 234 BMP: Recent Labs 07/28/23 1229 07/29/23 0614 07/31/23 0556 NA 137 137 133* K 4.0 4.4 3.7 CL -- 105 98 CO2 -- 21 24 BUN -- 14 14 CREATININE -- 0.8 0.6* FASTING LIPID PANEL: Lab Results Component Value Date CHOL 141 07/31/2023 HDL 34 (L) 07/31/2023 TRIG 169 (H) 07/31/2023 Imaging: CT CHEST PULMONARY EMBOLISM W CONTRAST Result Date: 07/30/2023 1. No evidence of pulmonary embolism or acute pulmonary abnormality. 2. Three-vessel coronary artery calcification. XR CERVICAL SPINE (2-3 VIEWS) Result Date: 07/29/2023 Findings consistent with cervicothoracic spinal fusion and postoperative changes as detailed above. Underlying degenerative changes in the cervical spine. XR CHEST PORTABLE Result Date: 07/29/2023 No radiographic evidence of acute cardiopulmonary process. Postop findings. CT CHEST WO CONTRAST Result Date: 07/27/2023 1. The lungs are clear with no acute pulmonary finding. 2. Tiny subpleural nodules noted incidentally for which no follow-up is necessary. 3. Mild atherosclerotic calcification of coronary arteries. 4. Very limited evaluation of the cervical spine pertaining to provided history. Recommend a follow-up MRI of the cervical spine for further evaluation of potential myelopathy. 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 * Sinus tachycardia - Likely multifactorial secondary to postop, pain, hypovolemia Start Lopressor 12.5 mg p.o. twice daily Can discuss with PCP regarding adjustment of blood pressure medications, mentioned in the discharge instructions Stenosis of cervical spine with myelopathy S/p C2-T2 posterior fusion, decompression Management as per neurosurgery Essential hypertension: Blood pressure well under control 1 At home on Norvasc 10, lisinopril hydrochlorothiazide Resumed lisinopril hydrochlorothiazide Keep SBP less than 140 Continue to monitor On discharge can resume his blood pressure medications Type 2 diabetes mellitus: HbA1c done on 05/19/2023 suggestive of HbA1c 6.9 POC blood glucose 200 At home on metformin 500 twice daily and Jardiance 10 twice daily Continue low-dose sliding scale Continue to monitor blood glucose Target blood glucose 150-200 Continue to monitor Hypoglycemia protocol On discharge can resume p.o. antihyperglycemic's 07/31/23 Has been hemodynamically stable, blood pressure and diabetes well-controlled. Has been tachycardic, sinus tach multifactorial started on low-dose Lopressor. Medically stable for discharge from medical standpoint Soraida Frias PGY-3 Internal Medicine [place], [place] 11:02 AM 07/31/2023 Attestation and add on I have discussed the care of Kedar Ocasio , including pertinent history and exam findings, 07/31/23 with the resident. I have seen and examined the patient and the sen elements of all parts of the encounter have been performed by me . I agree with the assessment, plan and orders as documented by the resident[place] [address]. Answering Service: Images from the original note were not included. Physical Therapy Cancel Note DATE: 07/31/2023 NAME: Kedar Ocasio : 1960 Patient not seen this date for Physical Therapy due to: Other: pt c/o being sore ; pain meds due at 11:15; discussed with RN and pt--PT will return around 12:15 for stair training after pt has his pain meds. Neurosurgery ZACARIAS/Resident Daily Progress Note No chief complaint on file. 07/31/2023 8:34 AM Chart reviewed. No acute events overnight. No new complaints. Patient is currently on NC. Will attempt to wean off oxygen, increase IS use. Patient also states that he has stairs at home, so will contact PT to work with him on stairs. States he does have some aching/tingling to his fingers. Eating and drinking okay, voiding without difficulty, passing flatus, pain is well controlled. Vitals: 07/31/23 0100 07/31/23 0400 07/31/23 0731 07/31/23 0746 BP: 116/85 134/79 Pulse: (!) 106 (!) 109 (!) 110 Resp: 11 16 16 11 Temp: 98.4 F (36.9 C) 98.1 F (36.7 C) TempSrc: Oral Oral SpO2: 93% 95% Weight: Height: PE: AOx3 Motor L deltoid 5/5; R deltoid 5/5 L biceps 5/5; R biceps 5/5 L triceps 5/5; R triceps 5/5 L wrist extension 5/5; R wrist extension 5/5 L intrinsics 5/5; R intrinsics 5/5 L iliopsoas 5/5 , R iliopsoas 5/5 L quadriceps 5/5; R quadriceps 5/5 L Dorsiflexion 5/5; R dorsiflexion 5/5 L Plantarflexion 5/5; R plantarflexion 5/5 L EHL 5/5; R EHL 5/5 Sensation intact with the exception of aching/tingling to fingers Incision c/d/i Lab Results Component Value Date WBC 8.6 07/31/2023 HGB 15.3 07/31/2023 HCT 45.5 07/31/2023 PLT 234 07/31/2023 CHOL 141 07/31/2023 TRIG 169 (H) 07/31/2023 HDL 34 (L) 07/31/2023 NA 133 (L) 07/31/2023 K 3.7 07/31/2023 CL 98 07/31/2023 CREATININE 0.6 (L) 07/31/2023 BUN 14 07/31/2023 CO2 24 07/31/2023 INR 1.0 07/10/2023 LABA1C 6.4 (H) 07/29/2023 A/P 63 y.o. male with cervical stenosis with cord compression POD 3 s/p C3-T2 posterior decompression and fusion - activity as tolerated with aspen when OOB - Okay to remove collar when sleeping, eating, and with hygiene - PT/OT eval and treat with a focus on stairs - SCDs and lovenox for dvt ppx - encourage IS - Attempt to wean O2 - possible dc home later today Please contact neurosurgery with any changes in patients neurologic status. Neurosurgery ZACARIAS/Resident Daily Progress Note No chief complaint on file. 07/30/2023 8:06 AM Chart reviewed. No acute events overnight. No new complaints. Vitals: 07/29/23 1200 07/29/23 1914 07/29/23 2306 07/30/23 0325 BP: 130/75 (!) 147/85 126/76 114/76 Pulse: 98 (!) 105 (!) 115 (!) 103 Resp: 10 14 12 16 Temp: 98.4 F (36.9 C) 97.9 F (36.6 C) 98.6 F (37 C) 98.6 F (37 C) TempSrc: Oral Oral Oral Oral SpO2: 96% 95% 98% 96% Weight: Height: PE: AOx3 Motor L deltoid 5/5; R deltoid 5/5 L biceps 5/5; R biceps 5/5 L triceps 5/5; R triceps 5/5 L wrist extension 5/5; R wrist extension 5/5 L intrinsics 5/5; R intrinsics 5/5 L iliopsoas 5/5 , R iliopsoas 5/5 L quadriceps 5/5; R quadriceps 5/5 L Dorsiflexion 5/5; R dorsiflexion 5/5 L Plantarflexion 5/5; R plantarflexion 5/5 L EHL 5/5; R EHL 5/5 Sensation intact Drain output 50ml/12hr Incision c/d/i Lab Results Component Value Date WBC 12.2 (H) 07/29/2023 HGB 15.5 07/29/2023 HCT 46.7 07/29/2023 PLT 243 07/29/2023 NA 137 07/29/2023 K 4.4 07/29/2023 CL 105 07/29/2023 CREATININE 0.8 07/29/2023 BUN 14 07/29/2023 CO2 21 07/29/2023 INR 1.0 07/10/2023 LABA1C 6.4 (H) 07/29/2023 Radiology EXAMINATION: 3 XRAY VIEWS OF THE CERVICAL SPINE 07/29/2023 10:57 am COMPARISON: CT cervical spine from 06/07/2023 HISTORY: ORDERING SYSTEM PROVIDED HISTORY: followup postop; UPRIGHT AP AND LATERAL TECHNOLOGIST PROVIDED HISTORY: followup postop; UPRIGHT/ LATERAL/swimmer's view followup postop; UPRIGHT AP AND LATERAL 63-year-old male; follow-up postop FINDINGS: Cervical spinal fusion hardware is seen extending from the C3 vertebral body level to the upper thoracic spine, possibly T2-T3 level. Inter pedicular screws are seen extending into the C3 through C7 levels. No prevertebral soft tissue swelling. Moderate disc space narrowing and mild hypertrophic osteophyte spur formation at C5-C6 and C6-C7. Skin nina along the posterior midline. IMPRESSION: Findings consistent with cervicothoracic spinal fusion and postoperative changes as detailed above. Underlying degenerative changes in the cervical spine. A/P 63 y.o. male with cervical stenosis with cord compression POD 2 s/p C3-T2 posterior decompression and fusion - discontinue hemovac - activity as tolerated with aspen - aspen at all times other than hygiene and eating - PT/OT eval and treat - SCDs and lovenox for dvt ppx - encourage IS - possible dc home later today Please contact neurosurgery with any changes in patients neurologic status. Shilpa Estrada PA-C 07/30/23 8:06 AM Associated attestation - Georgette Palomino DO - 07/30/2023 2:49 PM EST Neurosurgery attending: Patient seen 07/30/2023 I have reviewed the chart, studied the images, and examined the patient personally and agree with the ZACARIAS/Resident except with following addendum: POD 2 Some increased radicular symptoms of leg Sinus tachycardia 120s, no right axia deviation, no dyspnea Requiring 2L O2, with O2, Sating at 86. Cxr yesterday clean Will continue to moniter DC drain today On DVT ppx X.Serafin Palomino DO Neurosurgeon Neurosurgical oncologist Office: [phone] Cell: [phone] Images from the original note were not included. 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 Chart & results reviewed. AOx4 Afebrile Hemodynamically stable blood pressure 133/76 with heart rate 106. Previously was tachycardic and started on 100 ml of NaCl Currently on 2 L of nasal cannula Repeat chest x-ray, advised spirometry, acapella Labs reviewed suggestive of blood glucose 209 received 1 of low-dose sliding scale ROS: Constitutional: negative for chills, fevers, sweats Respiratory: negative for cough, dyspnea on exertion, hemoptysis, shortness of breath, wheezing Cardiovascular: negative for chest pain, chest pressure/discomfort, lower extremity edema, palpitations Gastrointestinal: negative for abdominal pain, constipation, diarrhea, nausea, vomiting Neurological: negative for dizziness, headache BRIEF HISTORY The patient is a pleasant 63 y.o. male presents with past medical history of cervical spondylosis, hypertension, former smoker, diabetes mellitus, obesity with a chief complaint of elective posterior C2 -T2 fusion and decompression. Patient was admitted under neurosurgery service. IM was consulted for the management of hypertension diabetes mellitus Patient has been ongoing with bilateral upper extremity numbness/tingling, weakness, symptoms were eventually progressing to the immediately as well. Patient did complain of some sternal pain as well with restricted ROM of cervical spine. Patient did try but failed conservative treatment over time including pain management injections. He was scheduled for C2-T2 posterior fusion, decompression. On my evaluation today patient was AOx4, afebrile, hemodynamically stable, slightly tachycardic, and pain with cervical collar on the neck. Labs reviewed suggestive of unremarkable BMP with blood glucose 200. OBJECTIVE Vital Signs: BP 114/76 Pulse (!) 103 Temp 98.6 F (37 C) (Oral) Resp 16 Ht 1.702 m (5' 7 ) Wt 97.1 kg (214 lb) SpO2 96% BMI 33.52 kg/m Temp (24hrs), Av.4 F (36.9 C), Min:97.9 F (36.6 C), Max:98.6 F (37 C) In: 240 Out: 2490 [Urine:2200; Drains:290] Physical Exam: Constitutional: Appearance: He is obese. HENT: Head: Normocephalic and atraumatic. Right Ear: Tympanic membrane normal. Nose: Nose normal. Mouth/Throat: Mouth: Mucous membranes are moist. Eyes: General: Right eye: No discharge. Left eye: No discharge. Extraocular Movements: Extraocular movements intact. Pupils: Pupils are equal, round, and reactive to light. Neck: Comments: Cervical collar around the neck Cardiovascular: Rate and Rhythm: Normal rate and regular rhythm. Pulses: Normal pulses. Heart sounds: No murmur heard. Pulmonary: Effort: Pulmonary effort is normal. No respiratory distress. Abdominal: General: Abdomen is flat. There is no distension. Palpations: Abdomen is soft. There is no mass. Tenderness: There is no abdominal tenderness. Hernia: No hernia is present. Musculoskeletal: General: No swelling, tenderness, deformity or signs of injury. Normal range of motion. Skin: General: Skin is warm. Capillary Refill: Capillary refill takes less than 2 seconds. Coloration: Skin is not jaundiced or pale. Neurological: General: No focal deficit present. Mental Status: He is alert and oriented to person, place, and time. Psychiatric: Mood and Affect: Mood normal. Medications: Scheduled Medications: [Held by provider] amLODIPine 10 mg Oral Daily Vitamin D 2,000 Units Oral Daily atorvastatin 10 mg Oral Daily potassium chloride 10 mEq Oral Daily sodium chloride flush 5-40 mL IntraVENous 2 times per day acetaminophen 650 mg Oral Q6H famotidine 20 mg Oral BID Or famotidine (PEPCID) injection 20 mg IntraVENous BID polyethylene glycol 17 g Oral Daily enoxaparin 40 mg SubCUTAneous Daily insulin lispro 0-4 Units SubCUTAneous TID WC insulin lispro 0-4 Units SubCUTAneous Nightly lisinopril 40 mg Oral Daily And hydroCHLOROthiazide 25 mg Oral Daily Continuous Infusions: sodium chloride 100 mL/hr at 07/28/23 2230 sodium chloride dextrose PRN Medicationsgabapentin, 300 mg, Q4H PRN sodium chloride flush, 5-40 mL, PRN sodium chloride, , PRN oxyCODONE, 5 mg, Q4H PRN Or oxyCODONE, 10 mg, Q4H PRN HYDROmorphone, 0.5 mg, Q3H PRN Or HYDROmorphone, 1 mg, Q3H PRN bisacodyl, 10 mg, Daily PRN cyclobenzaprine, 10 mg, TID PRN senna, 1 tablet, Daily PRN glucose, 4 tablet, PRN dextrose bolus, 125 mL, PRN Or dextrose bolus, 250 mL, PRN glucagon (rDNA), 1 mg, PRN dextrose, , Continuous PRN Diagnostic Labs: CBC: Recent Labs 07/28/23 1052 07/28/23 1229 07/29/23 0614 WBC -- -- 12.2* RBC -- -- 4.93 HGB 15.4 15.4 15.5 HCT 47.3 47.0 46.7 MCV -- -- 94.7 RDW -- -- 12.2 PLT -- -- 243 BMP: Recent Labs 07/28/23 1052 07/28/23 1229 07/29/23 0614 NA 141 137 137 K 3.6 4.0 4.4 CL -- -- 105 CO2 -- -- 21 BUN -- -- 14 CREATININE -- -- 0.8 BNP: No results for input(s): BNP in the last 72 hours. PT/INR: No results for input(s): PROTIME , INR in the last 72 hours. APTT: No results for input(s): APTT in the last 72 hours. CARDIAC ENZYMES: No results for input(s): CKMB , CKMBINDEX , TROPONINI in the last 72 hours. Invalid input(s): CKTOTAL;3 FASTING LIPID PANEL:No results found for: CHOL , HDL , TRIG LIVER PROFILE: No results for input(s): AST , ALT , ALB , BILIDIR , BILITOT , ALKPHOS in the last 72 hours. MICROBIOLOGY: No results found for: CULTURE Imaging: CT CHEST WO CONTRAST Result Date: 07/27/2023 1. The lungs are clear with no acute pulmonary finding. 2. Tiny subpleural nodules noted incidentally for which no follow-up is necessary. 3. Mild atherosclerotic calcification of coronary arteries. 4. Very limited evaluation of the cervical spine pertaining to provided history. Recommend a follow-up MRI of the cervical spine for further evaluation of potential myelopathy. 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 * Stenosis of cervical spine with myelopathy S/p C2-T2 posterior fusion, decompression Neurosurgery on board as primary Essential hypertension: Blood pressure well under control At home on Norvasc 10, lisinopril hydrochlorothiazide Resume lisinopril hydrochlorothiazide for now Keep SBP less than 140 Continue to monitor Type 2 diabetes mellitus: HbA1c done on 05/19/2023 suggestive of HbA1c 6.9 POC blood glucose 200 At home 1 metformin 500 twice daily and Jardiance 10 twice daily Start the patient on low-dose sliding scale Continue to monitor blood glucose Target blood glucose 1 50-200 Continue to monitor Hypoglycemia protocol 07/30/23 : S/p fusion and decompression yesterday. Medicine is consulted for hypertension diabetes mellitus. Patient is hemodynamically stable with controlled blood pressure and controlled blood sugar. Diet: Regular diet DVT ppx : Lovenox GI ppx: PT/OT: PT OT on board Discharge Planning / SW: residential field manager discharge planning Terri Ayala MD Internal Medicine Resident, PGY-1 [facility], [place], [place] 07/30/2023, 7:00 AM Attestation and add on I have discussed the care of Kedar Ocasio , including pertinent history and exam findings, 07/30/23 with the resident. I have seen and examined the patient and the sen elements of all parts of the encounter have been performed by me . I agree with the assessment, plan and orders as documented by the resident. Prgressing satisfactor[place] [address]. Answering Service: [facility] - [facility] [place], [place] PROGRESS NOTE Shift date: 07/29/2023 Shift day: Monday Shift # 2 Room # 0101/0101-01 Name: Kedar Ocasio Pentecostal: Place of scientology: Referral: Routine Visit Admit Date & Time: 07/28/2023 5:37 AM Assessment: Kedar Ocasio is a 63 y.o. male in the hospital . Patient had family support present in room and appeared calm and coping. Intervention: Route Delivery Clerk introduced self and title as sterile processing technician. Patient did not appear to mind sterile processing technician presence and engaged in conversation. Supervisor Facepiece Line provided a supportive presence through active listening and words of affirmation. Outcome: Patient appeared receptive to sterile processing technician visit. Plan: Chaplains will remain available to offer spiritual and emotional support as needed. . [facility] [phone] Physical Therapy Facility/Department: [address] NEURO Physical Therapy Initial Assessment Name: Kedar Ocasio : 1960 Date of Service: 07/29/2023 Pt admitted for C2-T2 POSTERIOR FUSION, DECOMPRESSION ([place] SPINE TABLE, PRONE, BENEDICT HEADHOLDER, C-ARM, O-ARM, SSEP MONITORING, [employer], [employer] NAVIGATION done 07/28/23. Discharge Recommendations: In my professional opinion, this patient could tolerate a total of 3 hours of combined therapies post-acute care. Pt plans to return home upon DC, his plans to take a week off of work. PT Equipment Recommendations Equipment Needed: No Patient Diagnosis(es): There were no encounter diagnoses. 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 Past Surgical History: has a past surgical history that includes Total knee arthroplasty (Left); Colonoscopy (01/01/2014); hernia repair (Left, 03/2006); Knee arthroscopy (Right); and Spinal fusion (07/28/2023). Assessment Pt cooperative, limited by pain dorothy L hip, shooting pain down his L leg from his hip to his foot. Bed mob mod A for supine to sit, max A for sit to supine to assist LEs onto bed; transfers CG+1, gait 120' CG+1, forward posture, [place] collar. Body Structures, Functions, Activity Limitations Requiring Skilled Therapeutic Intervention: Decreased functional mobility ;Decreased tolerance to work activity;Decreased endurance;Decreased sensation;Decreased balance;Decreased fine motor control;Decreased coordination;Increased pain;Decreased posture Therapy Prognosis: Good Decision Making: Medium Complexity Requires PT Follow-Up: Yes Activity Tolerance Activity Tolerance: Patient limited by fatigue;Patient limited by pain Plan Physical Therapy Plan General Plan: 6-7 times per week Current Treatment Recommendations: Strengthening, ROM, Balance training, Functional mobility training, Transfer training, Endurance training, Gait training, Stair training, Neuromuscular re-education, Pain management, Home exercise program, Safety education & training, Patient/Caregiver education & training, Equipment evaluation, education, & procurement, Positioning, Therapeutic activities Safety Devices Type of Devices: (pt retired to stretcher to go to x-ray after ambulating) Restraints Restraints Initially in Place: No Restrictions Restrictions/Precautions Restrictions/Precautions: Surgical Protocols, Fall Risk, Up as Tolerated Required Braces or Orthoses?: Yes Required Braces or Orthoses Cervical: c-collar (on at all times except eating and hygiene per neurosurgery) Subjective Pain: 4/10 LBP; 5/10 surgical site pain; increased with mobility, decreased with rest General Patient assessed for rehabilitation services?: Yes Response To Previous Treatment: Not applicable Family / Caregiver Present: Yes () Follows Commands: Within Functional Limits Social/Functional History Social/Functional History Lives With: Spouse Type of Home: House Home Layout: Multi-level, Bed/Bath upstairs Home Access: Stairs to enter without rails Entrance Stairs - Number of Steps: 3--pt states there are B ledges that he holds onto Home Equipment: Walker, rolling, Rollator, Lift chair Receives Help From: Family ADL Assistance: Independent Ambulation Assistance: Independent (using rwalker d/t LE weakness/pain) Transfer Assistance: Independent Active Valve Steamer: Yes Vision/Hearing Vision Vision: Impaired Vision Exceptions: Wears glasses for reading Hearing Hearing: Exceptions to WFL Hearing Exceptions: Bilateral hearing aid Cognition Orientation Overall Orientation Status: Within Normal Limits Orientation Level: Oriented X4 Cognition Overall Cognitive Status: WNL Objective Pulse: 95 Heart Rate Source: Monitor BP: (!) 141/81 BP Location: Right upper arm BP Method: Automatic Patient Position: Lying right side MAP (Calculated): 101 Respirations: 15 SpO2: 94 % O2 Device: None (Room air) (pt was on nasal canula initially, changed to room air during PT session; RN notified) Temp: 98.4 F (36.9 C) Observation/Palpation Posture: Fair PROM RLE (degrees) RLE PROM: WFL PROM LLE (degrees) LLE PROM: WFL PROM RUE (degrees) RUE PROM: WFL PROM LUE (degrees) LUE PROM: WFL Strength RLE Strength RLE: Exception--hip 1/5 d/t increased L hip pain with R hip movement; knee/ankle WFL Strength LLE Strength LLE: Exception--hip 2/5, increased hip pain with movement; knee distal WFL Strength RUE Strength RUE: Exception--shoulder 3+/5, elbow distal WFL Strength LUE Strength LUE: Exception--shoulder 3+/5, elbow distal WFL Bed mobility Rolling to Right: Moderate assistance Supine to Sit: Moderate assistance Sit to Supine: Maximum assistance (to assist LEs onto the bed) Scooting: Maximal assistance;2 Person assistance Transfers Sit to Stand: Contact guard assistance Stand to Sit: Contact guard assistance Stand Pivot Transfers: Contact guard assistance Ambulation Surface: Level tile Device: Rolling Walker Assistance: Contact guard assistance Quality of Gait: forward flexed posture Gait Deviations: Slow Yvette;Decreased step length;Decreased step height;Decreased arm swing Distance: 120'x1 More Ambulation?: No Stairs/Curb Stairs?: No Balance Posture: Fair Sitting - Static: Good Sitting - Dynamic: Good Standing - Static: Fair Standing - Dynamic: Fair;- Comments: with rwalker Exercise Treatment: ankle [id number] A/AROM Exercises: AAROM B hips, limited by pain; SAQs B x 3, limited by pain Static Sitting Balance Exercises: pt able to dangle EOB ~3 minutes prior to standing to ambulate AM-PAC - Mobility Goals Short Term Goals Time Frame for Short Term Goals: 14 visits Short Term Goal 1: bed mobility with min A+1 Short Term Goal 2: transfers independently Short Term Goal 3: gait with rwalker x 100' Short Term Goal 4: stair ambulation x 12 steps with 1 HR and min A+1 Short Term Goal 5: able to don/doff c-collar with spouse assistance to eat and for hygiene Patient Goals Patient Goals : decrease pain, be able to walk better Education Patient Education Education Given To: Patient;Family Education Provided: Role of Therapy;Plan of Care;Home Exercise Program;Precautions;Transfer Training;Family Education;Equipment;Fall Prevention Strategies Education Method: Demonstration;Verbal;Teach Back Education Outcome: Continued education needed Therapy Time Individual Concurrent Group Co-treatment Time In 1007 Time Out 1030 Minutes 23 Timed Code Treatment Minutes: 15 Minutes Robbi Thompson PT Neurosurgery ZACARIAS/Resident Daily Progress Note No chief complaint on file. 07/29/2023 7:09 AM Chart reviewed. No acute events overnight. No new complaints. Resting comfortably in bed with aspen collar on. Tolerating PO. Post op pain controlled. Ambulating in room. Voiding without difficultly. Vitals: 07/29/23 0524 07/29/23 0615 07/29/23 0624 07/29/23 0627 BP: Pulse: Resp: (!) 166 15 Temp: TempSrc: SpO2: 94% (!) 86% 94% Weight: Height: PE: AOx3 Motor L deltoid 5/5; R deltoid 5/5 L biceps 5/5; R biceps 5/5 L triceps 5/5; R triceps 5/5 L wrist extension 5/5; R wrist extension 5/5 L intrinsics 5/5; R intrinsics 5/5 L iliopsoas 5/5 , R iliopsoas 5/5 L quadriceps 5/5; R quadriceps 5/5 L Dorsiflexion 5/5; R dorsiflexion 5/5 L Plantarflexion 5/5; R plantarflexion 5/5 L EHL 5/5; R EHL 5/5 Sensation intact Drain output 180ml/12hr Incision c/d/i Lab Results Component Value Date WBC 12.2 (H) 07/29/2023 HGB 15.5 07/29/2023 HCT 46.7 07/29/2023 PLT 243 07/29/2023 NA 137 07/29/2023 K 4.4 07/29/2023 CL 105 07/29/2023 CREATININE 0.8 07/29/2023 BUN 14 07/29/2023 CO2 21 07/29/2023 INR 1.0 07/10/2023 LABA1C 6.9 (H) 05/19/2023 A/P 63 y.o. male with cervical stenosis with cord compression POD 1 s/p C3-T2 posterior decompression and fusion - Obtain post op films - continue hemovac - activity as tolerated with aspen - aspen at all times other than hygiene and eating - PT/OT eval and treat - SCDs and lovenox for dvt ppx - encourage IS Please contact neurosurgery with any changes in patients neurologic status. Shilpa Estrada PA-C 07/29/23 7:09 AM Associated attestation - Georgette Palomino DO - 07/29/2023 5:24 PM EST Neurosurgery attending: Patient seen 07/29/2023 I have reviewed the chart, studied the images, and examined the patient personally and agree with the ZACARIAS/Resident except with following addendum: POD 1 Improved paraesthesia/pain in legs Keep in drain Ashley-op analgesia, DVT ppx X.Serafin Palomino DO Neurosurgeon Neurosurgical oncologist Office: [phone] Cell: [phone] Images from the original note were not included. 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 Chart & results reviewed. AOx4 Afebrile Hemodynamically stable blood pressure 133/76 with heart rate 106. Previously was tachycardic and started on 100 ml of NaCl Currently on 2 L of nasal cannula Repeat chest x-ray, advised spirometry, acapella Labs reviewed suggestive of blood glucose 209 received 1 of low-dose sliding scale ROS: Constitutional: negative for chills, fevers, sweats Respiratory: negative for cough, dyspnea on exertion, hemoptysis, shortness of breath, wheezing Cardiovascular: negative for chest pain, chest pressure/discomfort, lower extremity edema, palpitations Gastrointestinal: negative for abdominal pain, constipation, diarrhea, nausea, vomiting Neurological: negative for dizziness, headache BRIEF HISTORY The patient is a pleasant 63 y.o. male presents with past medical history of cervical spondylosis, hypertension, former smoker, diabetes mellitus, obesity with a chief complaint of elective posterior C2 -T2 fusion and decompression. Patient was admitted under neurosurgery service. IM was consulted for the management of hypertension diabetes mellitus Patient has been ongoing with bilateral upper extremity numbness/tingling, weakness, symptoms were eventually progressing to the immediately as well. Patient did complain of some sternal pain as well with restricted ROM of cervical spine. Patient did try but failed conservative treatment over time including pain management injections. He was scheduled for C2-T2 posterior fusion, decompression. On my evaluation today patient was AOx4, afebrile, hemodynamically stable, slightly tachycardic, and pain with cervical collar on the neck. Labs reviewed suggestive of unremarkable BMP with blood glucose 200. OBJECTIVE Vital Signs: BP (!) 151/92 Pulse (!) 123 Temp 97.3 F (36.3 C) (Oral) Resp 20 Ht 1.702 m (5' 7 ) Wt 97.1 kg (214 lb) SpO2 96% BMI 33.52 kg/m Temp (24hrs), Av.2 F (36.2 C), Min:96.8 F (36 C), Max:97.3 F (36.3 C) In: 3367.9 Out: 1430 [Urine:1130; Drains:50] Physical Exam: Constitutional: Appearance: He is obese. HENT: Head: Normocephalic and atraumatic. Right Ear: Tympanic membrane normal. Nose: Nose normal. Mouth/Throat: Mouth: Mucous membranes are moist. Eyes: General: Right eye: No discharge. Left eye: No discharge. Extraocular Movements: Extraocular movements intact. Pupils: Pupils are equal, round, and reactive to light. Neck: Comments: Cervical collar around the neck Cardiovascular: Rate and Rhythm: Normal rate and regular rhythm. Pulses: Normal pulses. Heart sounds: No murmur heard. Pulmonary: Effort: Pulmonary effort is normal. No respiratory distress. Abdominal: General: Abdomen is flat. There is no distension. Palpations: Abdomen is soft. There is no mass. Tenderness: There is no abdominal tenderness. Hernia: No hernia is present. Musculoskeletal: General: No swelling, tenderness, deformity or signs of injury. Normal range of motion. Skin: General: Skin is warm. Capillary Refill: Capillary refill takes less than 2 seconds. Coloration: Skin is not jaundiced or pale. Neurological: General: No focal deficit present. Mental Status: He is alert and oriented to person, place, and time. Psychiatric: Mood and Affect: Mood normal. Medications: Scheduled Medications: [Held by provider] amLODIPine 10 mg Oral Daily Vitamin D 2,000 Units Oral Daily atorvastatin 10 mg Oral Daily potassium chloride 10 mEq Oral Daily sodium chloride flush 5-40 mL IntraVENous 2 times per day ceFAZolin (ANCEF) IVPB 2,000 mg IntraVENous Q8H acetaminophen 650 mg Oral Q6H famotidine 20 mg Oral BID Or famotidine (PEPCID) injection 20 mg IntraVENous BID polyethylene glycol 17 g Oral Daily [START ON 07/29/2023] enoxaparin 40 mg SubCUTAneous Daily insulin lispro 0-4 Units SubCUTAneous TID WC insulin lispro 0-4 Units SubCUTAneous Nightly lisinopril 40 mg Oral Daily And hydroCHLOROthiazide 25 mg Oral Daily Continuous Infusions: sodium chloride 100 mL/hr at 07/28/23 1635 sodium chloride dextrose PRN Medicationsgabapentin, 300 mg, Q4H PRN sodium chloride flush, 5-40 mL, PRN sodium chloride, , PRN oxyCODONE, 5 mg, Q4H PRN Or oxyCODONE, 10 mg, Q4H PRN HYDROmorphone, 0.5 mg, Q3H PRN Or HYDROmorphone, 1 mg, Q3H PRN bisacodyl, 10 mg, Daily PRN cyclobenzaprine, 10 mg, TID PRN senna, 1 tablet, Daily PRN glucose, 4 tablet, PRN dextrose bolus, 125 mL, PRN Or dextrose bolus, 250 mL, PRN glucagon (rDNA), 1 mg, PRN dextrose, , Continuous PRN Diagnostic Labs: CBC: Recent Labs 07/28/23 1007 07/28/23 1052 07/28/23 1229 HGB 14.5 15.4 15.4 HCT 44.5 47.3 47.0 BMP: Recent Labs 07/28/23 1007 07/28/23 1052 07/28/23 1229 NA 140 141 137 K 2.9* 3.6 4.0 BNP: No results for input(s): BNP in the last 72 hours. PT/INR: No results for input(s): PROTIME , INR in the last 72 hours. APTT: No results for input(s): APTT in the last 72 hours. CARDIAC ENZYMES: No results for input(s): CKMB , CKMBINDEX , TROPONINI in the last 72 hours. Invalid input(s): CKTOTAL;3 FASTING LIPID PANEL:No results found for: CHOL , HDL , TRIG LIVER PROFILE: No results for input(s): AST , ALT , ALB , BILIDIR , BILITOT , ALKPHOS in the last 72 hours. MICROBIOLOGY: No results found for: CULTURE Imaging: CT CHEST WO CONTRAST Result Date: 07/27/2023 1. The lungs are clear with no acute pulmonary finding. 2. Tiny subpleural nodules noted incidentally for which no follow-up is necessary. 3. Mild atherosclerotic calcification of coronary arteries. 4. Very limited evaluation of the cervical spine pertaining to provided history. Recommend a follow-up MRI of the cervical spine for further evaluation of potential myelopathy. 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 * Stenosis of cervical spine with myelopathy S/p C2-T2 posterior fusion, decompression Neurosurgery on board as primary Essential hypertension: Blood pressure well under control 1 37/88 At home on Norvasc 10, lisinopril hydrochlorothiazide Resume lisinopril hydrochlorothiazide for now Keep SBP less than 140 Continue to monitor Type 2 diabetes mellitus: HbA1c done on 05/19/2023 suggestive of HbA1c 6.9 POC blood glucose 200 At home 1 metformin 500 twice daily and Jardiance 10 twice daily Start the patient on low-dose sliding scale Continue to monitor blood glucose Target blood glucose 1 50-200 Continue to monitor Hypoglycemia protocol Diet: Regular diet DVT ppx : Lovenox GI ppx: PT/OT: PT OT on board Discharge Planning / SW: residential field manager discharge planning Terri Ayala MD Internal Medicine Resident, PGY-1 [facility], [place], [place] 07/29/2023, 5:09 AM Attestation and add on I have discussed the care of Kedar Ocasio , including pertinent history and exam findings, 07/29/23 with the resident. I have seen and examined the patient and the sen elements of all parts of the encounter have been performed by me . I agree with the assessment, plan and orders as documented by the resident. Recent Labs 07/28/23 1401 07/28/23 1740 07/28/23 2045 07/29/23 0740 07/29/23 1200 POCGLU 195* 200* 209* 139* 166* BP control satisfactory [place] [address]. Answering Service: Neurosurgery Post op Progress Note SUBJECTIVE: Status post: 1. C3-T2 posterior fusion/decompression. Patient seen while in recovery. Patient is having moderate complaints of pain to his neck. Rigid c-collar in place. Patient appears to be awake and alert. He moves all 4 extremities upon command. He still continues to have some numbness and tingling to both upper and lower extremities. He denies the presence of any headache, diplopia, nausea or emesis OBJECTIVE Physical exam VITALS: Vitals: 07/28/23 0621 BP: 132/82 Pulse: 93 Resp: 18 Temp: 97.3 F (36.3 C) SpO2: 96% INTAKE: Intake/Output Summary (Last 24 hours) at 07/28/2023 1403 Last data filed at 07/28/2023 1253 Gross per 24 hour Intake 2097.1 ml Output 1100 ml Net 997.1 ml URINARY CATHETER OUTPUT (Camargo): No Camargo catheter in place. DRAIN/TUBE OUTPUT: Hemovac drain in place to surgical site. Drain appears to be working. Output is approximately 25 mL. No evidence of DVT seen on physical exam. Negative Nayely's sign. No cords or calf tenderness. No significant calf/ankle edema. Neurological exam reveals Awake and alert, Responds to voice, and Responds to tactile stimuli alert, oriented x3, affect appropriate, moves all extremities well, no involuntary movements, and reflexes at knee and ankle intact screening mental status exam normal, cranial nerves II through XII intact. the upper and lower extremities normal 5/5 strength in all tested muscle groups, no muscle wasting or atrophy, no fasciculations noted, no involuntary movements, no abnormalities of position, and normal resting muscle tone normal light touch sensation and normal position sensation Wound Post op wound: posterior cervical spine well approximated incision clean, dry, and no drainage Closed w/ nina, bacitracin ointment over incision site and island dressing. Data LABS: Lab Results Component Value Date WBC 6.3 07/10/2023 HGB 15.4 07/28/2023 HCT 47.0 07/28/2023 MCV 95.7 07/10/2023 PLT 225 07/10/2023 Lab Results Component Value Date NA 137 07/28/2023 K 4.0 07/28/2023 CL 102 07/10/2023 CO2 24 07/10/2023 Lab Results Component Value Date BUN 21 07/10/2023 Lab Results Component Value Date CREATININE 1.0 07/10/2023 ASSESSMENT AND PLAN 1. Okay to transfer patient from recovery to floor if stable. 2. Consultations to both physical therapy and Occupational Therapy. Attempt to mobilize patient as best as possible. Patient utilizes a walker prior to surgery. 3. IV antibiotics for 24 hours and appropriate analgesics for pain. 4. Consult hospitalist for management of diabetes and hypertension. 5. Will start chemical DVT prophylaxis, i.e. Lovenox postop day 1. For now SCDs. 6. Will obtain radiographs of the cervical spine, upright AP lateral and swimmer's view tomorrow. 7. Diabetic diet. 8. C-collar to remain in place when patient is out of bed. 9. We will continue to closely follow this patient while he remains in house. documented in this encounter [facility] 07-31-2023 Hospital Discharge instructions Soraida Frias MD - 07/31/2023 8:41 AM EST Post-Operative Instructions You may remove your dressing and shower starting the second day after surgery. Wash the incision area gently with regular soap and water and lightly rinse the area when finished. Do not soak or submerge the incision. Carefully pat the area dry when finished and keep the incision clean and dry. Do not apply lotion or ointments to the incision. The incision is closed with skin nina. These will be removed at your first post-operative visit. Do not lift more than 10lbs and do not perform any strenuous work or exercise. It is good to be up and walking, however. It is safe to go up and down stairs. It is not recommended to drive while using prescription pain medication. Once you have weaned off prescription pain medication and you are certain that you are moving well enough to safely control the car it is okay to resume driving. Wear your collar at all times when out of bed. Okay to remove while in bed, or with eating and hygiene. Please start taking lopressor 12.5 mg po twice daily for tachycardia, rob discuss with your PCP regarding this new medication Please call for any signs of infection (redness, drainage, opening of the incision), fevers >101F, neurologic changes (new weakness, numbness), pain unresponsive to medication, or with any questions or concerns. The office phone number is [phone]. documented in this encounter [facility] 09-15-2022 Note CONSULTATION CONSULTATION DATE: 09/15/2022 TO: Walter Littlejohn D.O. HISTORY: Patient returns today complaining of pain in multiple areas: 1. New onset pain in his neck and upper thoracic area that occurred approximately some time prior to 08/30/2022. He woke up in the morning and had severe pain in his neck and upper back area. He describes it as 5-7/10 pain, sharp in character, increased with activity such as lifting maneuvers, pushing/pulling maneuvers and cervical extension. He reports pain radiating to his mid scapular area, his shoulder and upper extremities with numbness and tingling in his upper extremities but no weakness. 2. Next was lower back. He also reports this as also being 5-7/10 pain, sharp in character, increased with activities such as standing, walking and performing transitioning maneuvers. He feels most comfortable in the semi-recumbent position. Denies any change in bowel and bladder habits or new sensorimotor changes in his lower extremities. EXAM: Notable for patient having no clinical myelopathy or radiculopathy in his lower extremities. He had severe pain with lumbar facet joint loading maneuvers occurring bilaterally; L4-5, L5-S1. He also has a fair amount of myofascial spasm of the lumbar paravertebral muscles occurring bilaterally. Examination of his neck reveals the patient to have no clinical radiculopathy of his upper extremities, although he may have had an equivocally positive Spurling's sign with pain and tingling radiating to his left upper extremity with cervical extension and with rotation to the right and left side. He also has a fair amount of myofascial spasm of his cervical and thoracic paravertebral muscles, mainly splenius capitis and thoracic iliocostalis. He may have had mild to moderate pain with cervical facet joint loading maneuvers in the cervical area on the left side at approximately C5-6, C6-7. IMPRESSION: 1. Patient has chronic pain secondary to lumbar spondylosis. He has undergone a successful initial diagnostic L4-5, L5-S1 facet joint injection with pain improving in the immediate post procedural period, lasting for several hours which returned back to his baseline. He had 100% reduction in pain symptoms with that diagnostic procedure. This was associated with myofascial spasm of the lumbar paravertebral muscles. 2. Cervical spondylosis with facet related pain clinically. 3. Thoracic spondylosis with facet related pain clinically. RECOMMENDATIONS: I recommended cervical and thoracic spine films, PA and lateral views. I have asked him to continue with his current dose of baclofen. I have increased his gabapentin to 100 mg t.i.d. and to proceed with a repeat diagnostic L4-5, L5-S1 facet joint injection under fluoroscopic guidance. He is starting physical therapy for his pain in his upper back and neck area today. As part of providing excellent, safe, comprehensive care, the following was completed at our patient's visit: 1. A medication reconciliation and review to ensure accurate knowledge of current/active medications, including asking our patients to inform us about any [id number]-[id number] medications or herbal remedies/nutritional supplements/alternative remedies. 2. A review to specifically ensure our patients have had annual screening for: elevated body mass index (BMI, see intake chart for exact total), tobacco use, screening for depression, and screening for unhealthy alcohol use. When screening is concerning, patients are provided with education and the specific recommendation to discuss the concerning health issue and treatment options with their primary care provider. [facility] 08-09-2022 Note PROCEDURE: XR KNEE R T 3V COMPARISON: None. HISTORY: Pain of right knee joint FINDINGS: BONES:No acute fracture or dislocation. Mild degenerative osteoarthropathy with mild atrophy. SOFT TISSUES:Negative. No visible soft tissue swelling. EFFUSION:None visible. OTHER: Negative. IMPRESSION: Mild osteoarthritis Electronically authenticated by: GUILLERMO AMADOR Date: 2022-08-09 17:19 [facility] 08-09-2022 Note PAIN MANAGEMENT CONS ULTATION CONSULTATION DATE: 08/09/2022 TO: Dr. Littlejohn CHIEF COMPLAINT: Includes severe bilateral lower back pain. HISTORY OF PRESENT ILLNESS: His last encounter prior to today was on 04/21/2022. His last procedure was on 03/30/2021 with rhizotomy and radiofrequency ablation of the right L3, L4, L5 and S1 medial branch. He reports having a tremendous reduction in pain symptoms citing the medial until approximately three months ago. He has undergone RFA on the left side at L3, 4 and 5 on 02/19/2019, which also offered him more than 80% reduction in pain symptoms. Since that time, he reported over the last three months he has been developing flare up. He underwent activity modification at that time. He has tried diclofenac at 75 mg t.i.d., activity modification and an independent home exercise program. He has also taking baclofen and tramadol for his chronic pain symptoms, which offered him no relief. He reports the pain as being 5-7/10 pain, sharp in character, increased with activities such as standing, walking and performing transitioning maneuvers. He feels the most comfortable in the semi-recumbent position. Denies any change in bowel or bladder habits or any sensorimotor change in the lower extremities. EXAM: Notable for patient having no clinical radiculopathy or myelopathy involving the lower extremities. He did have severe pain with lumbar facet loading maneuvers occurring bilaterally, with pain occurring at L4-5, L5-S1 with associated myofascial dysfunction along the paravertebral muscles. IMPRESSION: Our impression is patient with chronic pain secondary to lumbosacral spondylosis with flare starting approximately three months ago, recalcitrant to conservative measures including medication management, activity modification and an independent home exercise program. RECOMMENDATIONS: I recommend proceeding with lumbar spine films, PA and lateral views. I have given him a script for physical therapy, and the patient has diagnostic bilateral L4-5, L5-S1 facet joint injection under fluoroscopic guidance. Will as well. [facility] 04-21-2022 Note CONSULTATION CONSULTATION DATE: 04/21/2022 HISTORY OF PRESENT ILLNESS: This is a pleasant, 62-year-old gentleman returning to the clinic for a three month follow up for his chronic lower back pain and bilateral hip pain. He rates his pain 2/10 today at rest, but will increase to 5/10 with activities such as stairs, bending, standing, walking and sitting on his motorcycle. In February 2021, he had repeat radiofrequency ablations of his right sided facets, L3-S1. He is having increased radiating pain bilateral gluteal region to anterior aspect of his thigh, just above the knee. He is having right groin pain and bilateral buttock pain as well. He denies any vasomotor weakness. Medications include tramadol 50 mg t.i.d., baclofen 10 mg q.h.s. and Naprosyn 500 mg daily. Patient's REVIEW OF SYSTEMS / PAST MEDICAL HISTORY / ALLERGIES and IMAGES have been reviewed and they are noted on the chart. PHYSICAL EXAM: VITAL SIGNS: Blood pressure is 143/87. Heart rate is 101. Temperature is 97.8. He is 5'7 , weighs 96.6 kg. GENERAL IMPRESSION: Pleasant, appropriate, no acute distress. FOCUSED EXAM - BACK: Range of motion is guarded to the right as well as with flexion/extension. Paravertebral muscles are non-spasmodic. Amor's point is tender bilaterally, right greater than left with referral to bilateral hips and right groin, indicative of sacroiliitis. Reproduction of spinal axial pain upon deep compression of the lumbar facets of L3, L4 and L5, S1 bilaterally that is non-radiating below the knee. Positive FABERs compression and thigh thrust MUSCULOSKELETAL: Motor is 5/5 bilaterally. Patient has a stable gait with good muscle tone. NEUROLOGICAL: Patchy hypoesthesia noted along L5-S1 bilaterally, right greater than left. Patellar and Achilles reflexes are intact. DIAGNOSIS: Lumbar spondylosis, lumbar degenerative disc disease, spinal axial lower back pain, lumbar neuritis and bilateral sacroiliitis. PLAN: We will address his inflammatory pain with diclofenac 75 mg b.i.d. The patient is instructed to stop his Naprosyn. We will do a 30 day trial of gabapentin 100 mg q.h.s. We will schedule for a repeat radiofrequency ablation to the right side of L3, L4 and L5, S1. Patient does agree with this plan of care, will be followed up in the office post procedure. [facility] 01-20-2022 Note CONSULTATION CONSULTATION DATE: 01/20/2022 This is a pleasant and very active 61-year-old man who returns to the clinic for a 3-month follow-up for chronic lower back pain and hip pain. Today he reports his pain is 2 out of 10, dull, stabbing and achy at times. It is most noticeable when he is riding his motorcycle for prolonged periods of time. He has referral of pain down his right buttock around to the anterior portion of his thigh, towards his inner leg. His medications include Naprosyn 500 mg q.a.m., Tramadol 50 mg t.i.d., p.r.n. and Baclofen 10 mg q.h.s. He does use compounded cream which the patient states is very beneficial to him. He is on a vitamin regimen. Other activities that aggravate his pain are housework, lifting, bending, massage and standing. Sitting and lying down decrease the pain. The patient does have an inversion table but has not been using it consistently. He has not been doing stretches and heat application. REVIEW OF SYSTEMS, PAST MEDICAL HISTORY, ALLERGIES AND IMAGES: Have been reviewed and noted in the chart. PHYSICAL EXAM: VITAL SIGNS: Blood pressure 152/102, heart rate is 86, temperature is 98.2. Height is 67 , weighs 98.3 kg. GENERAL APPEARANCE: Pleasant, appropriate and in no acute distress. HEART: No JVD. No orthostatic deviation. BACK: Range of motion is functional in lateral rotation and flexion-extension. Paravertebral muscles are non-spasmodic. Mild tenderness along the L5, right-sided facets, to direct compression. Fullness palpated as well indicative of ill facet arthropathy, lumbar spondylosis. Amor's point is nontender bilaterally, Nir's is negative. MUSCULOSKELETAL: Motor is intact, 4 out of 5 bilaterally. Walks with a stable gait; does not use assistive device. NEUROLOGICAL: Radicular sensory is intact, patellar and Achilles reflexes are +2 bilaterally. DIAGNOSIS: Chronic lower back pain, lumbar spondylosis, lumbar degenerative disk disease, lumbar neuritis. PLAN: We will send a refill for cream as well as Baclofen 10 mg q.h.s. Education was given on continued and consistent use of his inversion table as well as a menthol heat rub and heat application. The patient does state understanding and notes that he needs to be more disciplined in his approach to self-care. He is complaint with his vitamin regimen at this time. We will see him in three months unless otherwise indicated. The patient agrees with the plan of care. 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) Primary hypertension Unspecified essential hypertension Type 2 diabetes mellitus (HCC) Type II or unspecified type diabetes mellitus without mention of complication, not stated as uncontrolled [facility] Diagnosis Type 2 diabetes mellitus without complication, without long-term current use of insulin ([facility]-HCC)- Primary Essential hypertension Unspecified essential hypertension [facility] 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) [facility] Diagnosis Lumbar disc disease with radiculopathy Displacement of lumbar intervertebral disc without myelopathy [facility] on filedocumented in this encounter [facility] on filedocumented in this encounter [facility] Summary Purpose Family History No Family History Records FoundNo Family History Records FoundNo Family History Records FoundNo Family History Records FoundNo Family History Records FoundNo Family History Records FoundNo Family History Records FoundNo Family History Records Found Advance Directives No Advanced Directives Records FoundLatest Code Status on File Code Status Date Activated Date Inactivated Comments Full Code 03/27/2019 12:06 PM 03/28/2019 3:59 PM Latest Code Status on File Code Status Date Activated Date Inactivated Comments Full Code 07/28/2023 5:23 PM Latest Code Status on File Code Status Date Activated Date Inactivated Comments Full Code 07/28/2023 5:23 PM 07/31/2023 7:53 PM Reason for Referral Specialty Diagnoses / Procedures Referred By Contac t Referred To Contact Physical Therapist Diagnoses 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) Pedro Mitchell, AUTOMOTIVE STARTER REPAIRER - EYEGLASS LENS GENERATOR [address] [address] Referral ID Status Reason Start Date Expiration Date Visits Requested Visits Authorized [id number] Pending Review Specialty Services Required 07/31/2023 01/27/2024 1 1 Question Answer Reason For External Referral? Location Comments The patient can be scheduled with any member of the group, including the provider with the first available appointments. Additional Source Comments (unrecognized sect ion and content) No Status Records FoundNo Status Records FoundNo Status Records FoundNo Status Records FoundNo Status Records FoundNo Status Records FoundNo Status Records FoundNo Status Records Found INFORMATION SOURCE (unrecogn ized section and content) DATE CREATED AUTHOR 01/01/2022 [facility] DATE CREATED AUTHOR AUTHOR'S ORGANIZ ATION 10/27/2022 [facility] DATE CREATED AUTHOR AUTHOR'S ORGANIZ ATION 04/11/2023 [facility] DATE CREATED AUTHOR AUTHOR'S ORGANIZ ATION 05/26/2023 [facility] DATE CREATED AUTHOR AUTHOR'S ORGANIZ ATION 11/28/2023 [facility] DATE CREATED AUTHOR AUTHOR'S ORGANIZ ATION 11/30/2023 [facility] DATE CREATED AUTHOR AUTHOR'S ORGANIZ ATION 12/11/2023 [facility] DATE CREATED AUTHOR AUTHOR'S ORGANIZ ATION 01/01/2024 [facility] Reason for Visit (unrecogniz ed section and content) Reason Comments Med Refill Specialty Diagnoses / Procedures Referred By Contac t Referred To Contact Diagnoses 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) 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) [M48.02, G99.2] Procedures KS ARTHRD PST/PSTLAT TQ 1NTRSPC CRV BELW C2 SEGMENT [place] ALLOGRAFT FOR SPINE SURGERY ONLY MORSELIZED KS AUTOGRAFT SPINE SURGERY LOCAL FROM SAME INCISION [place] MICROSURG TQS REQ USE OPERATING MICROSCOPE KS STEREOTACTIC COMPUTER ASSISTED PX SPINAL KS LAMINECTOMY W/O FFD > 2 VERT SEG CERVICAL KS ARTHRODESIS PST/PSTLAT TQ 1NTRSPC EA ADDL NTRSPC KS ARTHRODESIS PST/PSTLAT TQ 1NTRSPC EA ADDL NTRSPC KS ARTHRODESIS PST/PSTLAT TQ 1NTRSPC EA ADDL NTRSPC KS ARTHRODESIS PST/PSTLAT TQ 1NTRSPC EA ADDL NTRSPC KS ARTHRODESIS PST/PSTLAT TQ 1NTRSPC EA ADDL NTRSPC KS ARTHRODESIS PST/PSTLAT TQ 1NTRSPC EA ADDL NTRSPC KS POSTERIOR SEGMENTAL INSTRUMENTATION 7-12 VRT SEG C2-T2 POSTERIOR FUSION, DECOMPRESSION ([place] SPINE TABLE, PRONE, BENEDICT HEADHOLDER, C-ARM, O-ARM, SSEP MONITORING, DEPUY, [employer], [place] CONF# [id number]) *DR. YODER TO ASSIST* SHORT STAY Mike Townsend DO [address] [facility] [address] [place] [address] [facility] [address] [place] [address] Referral ID Status Reason Start Date Expiration Date Visits Re quested Visits Authorized [id number] 1 1 Reason Comments Follow-up Care Teams (unrecognized sec tion and content) Channel Opener Outsoles Relationship Specialty Start Date End Date Walter Littlejohn DO [address] [facility], [place] [address] PCP - General Family Medicine 09/17/18 [employer] Opener Outsoles Relationship Specialty Start Date End Date Day 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 [address] [place] [address] PCP - General Family Medicine 04/10/23 Channel Opener Outsoles Relationship Specialty Start Date End Date Day Obando AUTOMOTIVE STARTER REPAIREREYEGLASS LENS GENERATOR [address] [place] [address] PCP - General Internal Medicine 06/29/23 Channel Opener Outsoles Relationship Specialty Start Date End Date Day Obando AUTOMOTIVE STARTER REPAIREREYEGLASS LENS GENERATOR [address] [place] [address] PCP - General Internal Medicine 06/29/23 Channel Opener Outsoles Relationship Specialty Start Date End Date TopherDay AUTOMOTIVE STARTER REPAIRER-[facility] [address] [place] [address] PCP - General Internal Medicine 06/29/23 Channel Opener Outsoles Relationship Specialty Start Date End Date Day Obadno AUTOMOTIVE STARTER REPAIRER - EYEGLASS LENS GENERATOR [address] [place] [address] PCP - General Family Medicine 04/10/23 Channel Opener Outsoles Relationship Specialty Start Date End Date TopherDay AUTOMOTIVE STARTER REPAIRER - EYEGLASS LENS GENERATOR [address] [place] [address] PCP - General Family Medicine 04/10/23 Channel Opener Outsoles Relationship Specialty Start Date End Date TopherMaxDay Shaw AUTOMOTIVE STARTER REPAIRER - EYEGLASS LENS GENERATOR [address] [place] [address] PCP - General Family Medicine 04/10/23 Ordered Prescriptions (unrec ognized section and content) Prescription Sig Dispensed Refills Start Date End Da te metoprolol tartrate (LOPRESSOR) 25 MG tablet Take 0.5 tablets by mouth 2 times daily 60 tablet 1 07/31/2023 oxyCODONE-acetaminophen (PERCOCET) 5-325 MG per tabletIndications: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 May also take 2 tablets every 6 hours as needed for Pain. Do all this for 7 days. Intended supply: 7 days. Take lowest dose possible to manage pain. Max Daily Amount: 8 tablets. 56 tablet 0 07/31/2023 08/07/2023 Scheduled Active and Recently Administ ered Medications (unrecognized section and content) Medication Order 07/29/2023 07/30/2023 07/31/2023 acetaminophen (TYLENOL) tablet 650 mg 650 mg, Oral, EVERY 6 HOURS, First dose on Mon07/28/23 at 1745, Until Discontinued, Maximum dose of acetaminophen is 4000 mg from all sources in 24 hours., Post-op 0044 (Given - Provider: Poonam Azul RN)0455 (Given - Provider: Poonam Azul RN)1059 (Given - Provider: Kennedy Carranza RN)1731 (Given - Provider: Kennedy Carranza RN)2249 (Given - Provider: Sweetie Villagomez RN) 0554 (Given - Provider: Sweetie Villagomez RN)1203 (Given - Provider: Lurdes Wiley RN)1746 (Given - Provider: Lurdes Wiley RN)2149 (Given - Provider: Sweetie Villagomez RN) 0431 (Given - Provider: Sweetie Villagomez RN)1118 (Given - Provider: Ozzie Miranda RN)1745 (Due)2345 (Due) amLODIPine (NORVASC) tablet 10 mg 10 mg, Oral, DAILY, First dose on Mon07/28/23 at 1745, Until Discontinued, Post-op 0900 (Held - Provider: Kennedy Carranza RN - Reason: Order parameters not met) 0900 (Automatically Held - Provider: Tal Rice MD) 0900 (Automatically Held - Provider: Tal Rice MD) atorvastatin (LIPITOR) tablet 10 mg 10 mg, Oral, DAILY, First dose on Mon07/28/23 at 1745, Until Discontinued, Substituted for Lovastatin (MEVACOR)., Post-op 0920 (Given - Provider: Kennedy Carranza, RN) 0945 (Given - Provider: Lurdes Wiley, RN) 0837 (Given - Provider: Ozzie Miranda, NANCY) ceFAZolin (ANCEF) 2000 mg in sterile water 20 mL IV syringe (COMPLETED) 2,000 mg, IntraVENous, EVERY 8 HOURS, 3 doses, First dose on Mon07/28/23 at 2030, Last dose on Mon07/29/23 at 1330, Antimicrobial Indications: Surgical Prophylaxis, Administer over 5 mins., Post-op 0459 (Given - Provider: Poonam Azul RN)1335 (Given - Provider: Kennedy Carranza, NANCY) cyclobenzaprine (FLEXERIL) tablet 10 mg 10 mg, Oral, 3 TIMES DAILY, First dose (after last modification) on Mon07/30/23 at 1400, Until Discontinued, Post-op 1602 (Given - Provider: Claudia Chaidez, NANCY)2111 (Given - Provider: Sweetie Villagomez RN) 0838 (Given - Provider: Ozzie Miranda, NANCY)1539 (Given - Provider: Ozzie Miranda, NANCY)2100 (Due) enoxaparin (LOVENOX) injection 40 mg 40 mg, SubCUTAneous, DAILY, First dose on Mon07/29/23 at 0900, Until Discontinued, Indication of Use: Prophylaxis-DVT/PE, Administer by deep subCUTAneous injection with pt lying down. Alternate injection sites on abdominal wall. Do not rub site after injection. Check with provider prior to any invasive procedure., Post-op 0921 (Given - Provider: Kennedy Carranza, NANCY) 0946 (Given - Provider: Lurdes Wiley, NANCY) 0837 (Given - Provider: Ozzie Miranda, NANCY) famotidine (PEPCID) 20 mg in sodium chloride (PF) 0.9 % 10 mL injection(Linked Group 1) 20 mg, IntraVENous, 2 TIMES DAILY, First dose on Mon07/28/23 at 2100, Until Discontinued, Administer if oral route cannot be used, Post-op 0920 (See Alternative - Provider: Kennedy Carranza RN)2006 (See Alternative - Provider: Sweetie Villagomez RN) 0945 (See Alternative - Provider: Lurdes Wiley RN)1920 (Canceled Entry - Provider: Sweetie Villagomez RN)1956 (See Alternative - Provider: Sweetie Villagomez RN) 0837 (See Alternative - Provider: Ozzie Miranda RN)2099 (Due) famotidine (PEPCID) tablet 20 mg(Linked Group 1) 20 mg, Oral, 2 TIMES DAILY, First dose on Mon07/28/23 at 2100, Until Discontinued, Post-op 09 (Given - Provider: Kennedy Carranza RN)2006 (Given - Provider: Sweetie Villagomez RN) 0945 (Given - Provider: Lurdes Wiley RN)1920 (See Alternative - Provider: Sweetie Villagomez RN)1956 (Given - Provider: Sweetie Villagomez RN) 0837 (Given - Provider: Ozzie Miranda RN)2099 (Due) gabapentin (NEURONTIN) capsule 300 mg (CANCELED) 300 mg, Oral, EVERY 4 HOURS SCHEDULED (6 times per day), First dose (after last modification) on Mon07/30/23 at 1630, Until Discontinued, Post-op 1617 (Given - Provider: Claudia Chaidez RN)1956 (Given - Provider: Sweetie Villagomez RN) 0021 (Given - Provider: Sweetie Villagomez RN)0431 (Given - Provider: Sweetie Villagomez RN)0838 (Given - Provider: Ozzie Miranda RN)1118 (Given - Provider: Ozzie Miranda RN) gabapentin (NEURONTIN) capsule 600 mg 600 mg, Oral, 4 times daily, First dose (after last modification) on Mon07/31/23 at 1700, Until Discontinued, Post-op 1700 (Due)2100 (Due) hydroCHLOROthiazide (HYDRODIURIL) tablet 25 mg(Linked Group 2) 25 mg, Oral, DAILY, First dose on Mon07/28/23 at 1815, Until Discontinued 09 (Given - Provider: Kennedy Carranza RN) 0945 (Given - Provider: Lurdes Wiley RN) 0837 (Given - Provider: Ozzie Miranda RN) insulin lispro (HUMALOG) injection vial 0-4 Units 0-4 Units, SubCUTAneous, 3 TIMES DAILY WITH MEALS, First dose on Mon07/28/23 at 1800, Until Discontinued, Corrective Low Dose Algorithm Glucose: Dose: 70-199 No Insulin 200-249 1 Unit 250-299 2 Units 300-349 3 Units Over 349 4 Units and notify physician 0912 (Not Given - Provider: Kennedy Carranza RN - Reason: Order parameters not met)1216 (Not Given - Provider: Kennedy Carranza RN - Reason: Order parameters not met)1640 (Not Given - Provider: Kennedy Carranza RN - Reason: Order parameters not met) 0740 (Not Given - Provider: Lurdes Wiley RN - Reason: Order parameters not met)1231 (Not Given - Provider: Lurdes Wiley RN - Reason: Order parameters not met)1749 (Not Given - Provider: Lurdes Wiley RN - Reason: Other) 0810 (Not Given - Provider: Ozzie Miranda RN - Reason: Order parameters not met)1220 (Not Given - Provider: Ozzie Miranda RN - Reason: Order parameters not met)1700 (Due) insulin lispro (HUMALOG) injection vial 0-4 Units 0-4 Units, SubCUTAneous, NIGHTLY, First dose on Mon07/28/23 at 2100, Until Discontinued, If continuous tube feedings/TPN/NPO, give correction dose based on result, no reduction in dose. If eating or bolus tube feeding: Corrective Bedtime Algorithm Glucose: Dose: 70-299 No Insulin 300-349 4 Units Over 349 4 Units and notify physician 2123 (Not Given - Provider: Sweetie Villagomez RN - Reason: Order parameters not met - Comment: 151) 2123 (Not Given - Provider: Sweetie Villagomez RN - Reason: Order parameters not met) 2100 (Due) lisinopril (PRINIVIL;ZESTRIL) tablet 40 mg(Linked Group 2) 40 mg, Oral, DAILY, First dose on Mon07/28/23 at 1815, Until Discontinued 0920 (Given - Provider: Kennedy Carranza RN) 0945 (Given - Provider: Lurdes Wiley RN) 0837 (Given - Provider: Ozzie Miranda RN) metoprolol tartrate (LOPRESSOR) tablet 12.5 mg 12.5 mg, Oral, 2 TIMES DAILY, First dose on Mon07/31/23 at 1115, Until Discontinued 1118 (Given - Provider: Ozzie Miranda RN)2100 (Due) polyethylene glycol (GLYCOLAX) packet 17 g 17 g, Oral, DAILY, First dose on Mon07/28/23 at 1745, Until Discontinued, Post-op 0920 (Given - Provider: Kennedy Carranza RN) 0946 (Given - Provider: Lurdes Wiley RN) 0837 (Given - Provider: Ozzie Miranda RN) potassium chloride (MICRO-K) extended release capsule 10 mEq 10 mEq, Oral, DAILY, First dose on Mon07/28/23 at 1745, Until Discontinued, Do not crush or break., Post-op 0920 (Given - Provider: Kennedy Carranza RN) 0945 (Given - Provider: Lurdes Wiley RN) 0837 (Given - Provider: Ozzie Miranda RN) sodium chloride 0.9 % bolus 250 mL (COMPLETED) 250 mL (2.57 mL/kg), IntraVENous, at 245.9 mL/hr, Administer over 61 Minutes, ONCE, On Mon07/30/23 at 1830, For 1 dose 1833 (New Bag - Provider: Lurdes Wiley RN)1939 (Stopped - Provider: Sweetie Villagomez RN) sodium chloride flush 0.9 % injection 5-40 mL 5-40 mL, IntraVENous, EVERY 12 HOURS SCHEDULED (2 times per day), First dose on Mon07/28/23 at 2100, Until Discontinued, For Line Patency: Peripheral IV = 5 mL; Midline or Central Line = 10 mL/lumen. If following IV push medication, administer flush at same rate as the IV push. Flush volume is determined by type of infusion therapy being given. For non-viscous solutions use: Peripheral IV = 5 mL Midline or Central Line = 10 mL/lumen For viscous solutions (i.e. blood components, parenteral nutrition, contrast media, or after obtaining blood sample) use: Peripheral IV = 10 mL Midline or Central Line = 20 mL/lumen, Post-op 0922 (Given - Provider: Kennedy Carranaz, RN)2005 (Given - Provider: Sweetie Villagomez, RN) 1015 (Not Given - Provider: Lurdes Wiley RN - Reason: Other)1956 (Given - Provider: Sweetie Villagomez RN) 0843 (Given - Provider: Ozzie Miranda, RN)2100 (Due) Vitamin D (CHOLECALCIFEROL) tablet 2,000 Units 2,000 Units, Oral, DAILY, First dose on Mon07/28/23 at 1800, Until Discontinued, Post-op 921 (Given - Provider: Kennedy Carranza RN) 0948 (Given - Provider: Lurdes Wiley, NANCY) 0837 (Given - Provider: Ozzie Miranda, NANCY) PRN Medication Order 07/29/2023 07/30/2023 07/31/2023 0.9 % sodium chloride infusion IntraVENous, at 5-250 mL/hr, PRN, if patient receiving piggyback infusions and maintenance fluids are not ordered OR KVO fluids to protect IV site / prevent frequent line interruptions/ long duration, Starting on Mon07/28/23 at 1723, For piggyback infusion, administer at same rate as piggyback for a total of 25 mL. Enter 25 mL into dose field and piggyback rate into rate field of order. If piggyback is infusing at a rate less than 100 mL/hr, enter 25 mL into dose field and 100 mL/hr into rate field of order. For KVO fluids, enter rate of 20 mL/hr or less into rate field of order., Post-op bisacodyl (DULCOLAX) suppository 10 mg 10 mg, Rectal, DAILY PRN, Starting on Mon07/28/23 at 1723, Until Discontinued, Constipation, Second line therapy for constipation, After 24 hours, if no result from first line PRN therapy, give second line therapy in combination with first line therapy., Post-op cyclobenzaprine (FLEXERIL) tablet 10 mg (CANCELED) 10 mg, Oral, 3 TIMES DAILY PRN, Starting on Mon07/28/23 at 1454, Until 07/30/23 at 1306, Muscle spasms, Post-op 2249 (Given - Provider: Sweetie Villagomez RN) 0738 (Given - Provider: Lurdes Wiley RN) dextrose 10 % infusion IntraVENous, at 100 mL/hr, CONTINUOUS PRN, if blood glucose remains LESS THAN 70 mg/dL after 2 dextrose 10% intravenous boluses or administration of glucagon, Starting on Mon07/28/23 at 1742, If blood glucose fails to stabilize after 2 dextrose 10% intravenous boluses or glucagon administration, start dextrose 10% infusion at 100 mL/hour and repeat blood glucose at 30 and 60 minutes. If blood glucose is GREATER THAN 70 mg/dL after 60 minutes, discontinue dextrose 10% infusion. dextrose bolus 10% 125 mL(Linked Group 3) 125 mL, IntraVENous, at 937.5 mL/hr, Administer over 8 Minutes, PRN, Other, Blood glucose 40 - 69 mg/dL and patient NOT ALERT or NPO, Starting on Mon07/28/23 at 1742, Repeat blood glucose in 15 minutes. If blood glucose remains LESS THAN 70 mg/dL, repeat treatment and recheck blood glucose in 15 minutes x 2. If using glycemic management system, dose as instructed per system. If blood glucose remains LESS THAN 70 mg/dL after 2 intravenous boluses start dextrose 10% at 100 mL/hour and notify provider. dextrose bolus 10% 250 mL(Linked Group 3) 250 mL, IntraVENous, at 937.5 mL/hr, Administer over 16 Minutes, PRN, Other, Blood glucose LESS THAN 40 mg/dL and patient NOT ALERT or NPO, Starting on Mon07/28/23 at 1742, Repeat blood glucose in 15 minutes. If blood glucose remains LESS THAN 70 mg/dL, repeat treatment and recheck blood glucose in 15 minutes x 2. If using glycemic management system, dose as instructed per system. If blood glucose remains LESS THAN 70 mg/dL after 2 intravenous boluses start dextrose 10% at 100 mL/hour and notify provider. gabapentin (NEURONTIN) capsule 300 mg (CANCELED) 300 mg, Oral, EVERY 4 HOURS PRN, Starting on Mon07/28/23 at 1723, Until Mon07/30/23 at 1306, as needed for numbness/tingling., Post-op 2019 (Given - Provider: Sweetie Villagomez RN) 0103 (Given - Provider: Susana Marshall RN)0554 (Given - Provider: Sweetie Villagomez RN)0953 (Given - Provider: Lurdes Wiley RN) glucagon injection 1 mg 1 mg, SubCUTAneous, PRN, Starting on Mon07/28/23 at 1742, Until Discontinued, Low blood sugar, Blood glucose LESS THAN 70 mg/dL and patient NOT ALERT or NPO and does not have IV access., After administration, attempt intravenous access and start dextrose 10% at 100 mL/hr. Repeat blood glucose in 15 minutes x 2 and notify provider. glucose chewable tablet 16 g 16 g (4 tablet), Oral, PRN, Starting on Mon07/28/23 at 1742, Until Discontinued, Low blood sugar, If blood glucose is LESS THAN 70 mg/dL and patient is alert and tolerating oral. Give 4 tablets (16g) Repeat blood glucose in 15 minutes. If blood glucose is LESS THAN 70 mg/dL, repeat treatment and recheck blood glucose in 15 minutes x 2. If blood glucose remains LESS THAN 70 mg/dL, notify provider. HYDROmorphone (DILAUDID) injection 1 mg (CANCELED)(Linked Group 4) 1 mg, IntraVENous, EVERY 3 HOURS PRN, Starting on Mon07/28/23 at 1723, Until 07/30/23 at 0808, Pain Severe (7-10), If oral and IV narcotics ordered, use oral first and only use IV if oral is ineffective or cannot take oral. Do Not give oral and IV within 1 hour of each other unless specifically ordered., Post-op 0218 (Given - Provider: Poonam Azul RN)0615 (Given - Provider: Poonam Azul RN)1055 (Given - Provider: Kennedy Carranza RN)1539 (Given - Provider: Kennedy Carranza RN)2006 (Given - Provider: Sweetie Villagomez, NANCY)2303 (Given - Provider: Sweetie Villagomez, NANCY) 0338 (Given - Provider: Sweetie Villagomez RN) iopamidol (ISOVUE-370) 76 % injection 85 mL (COMPLETED) 85 mL, IntraVENous, IMG ONCE PRN, 1 dose, Starting on 07/30/23 at 1445, Until 07/30/23 at 1450, Other 1450 (Given - Provider: Corazon Simpson) oxyCODONE (ROXICODONE) immediate release tablet 10 mg(Linked Group 5) 10 mg, Oral, EVERY 4 HOURS PRN, Starting on Mon07/28/23 at 1723, Until Discontinued, Pain Severe (7-10), Post-op 0044 (Given - Provider: Poonam Azul RN)0454 (Given - Provider: Poonam Azul RN)0920 (Given - Provider: Kennedy Carranza RN)1335 (Given - Provider: Kennedy Carranza RN)1732 (Given - Provider: Kennedy Carranza RN)212 (Given - Provider: Sweetie Villagomez RN) 0102 (Given - Provider: Susana Marshall, NANCY)0553 (Given - Provider: Sweetie Villagomez RN)0945 (Given - Provider: Lurdes Wiley RN)1327 (Given - Provider: Lurdes Wiley RN)174 (Given - Provider: Lurdes Wiley RN)214 (Given - Provider: Sweetie Villagomez RN) 0147 (Given - Provider: Sweetie Villagomez RN)0716 (Given - Provider: Sweetie Villagomez RN)1117 (Given - Provider: Ozzie Miranda, NANCY)1539 (Given - Provider: Ozzie Miranda RN) oxyCODONE (ROXICODONE) immediate release tablet 5 mg(Linked Group 5) 5 mg, Oral, EVERY 4 HOURS PRN, Starting on Mon07/28/23 at 1723, Until Discontinued, Pain Moderate (4-6), Post-op 0044 (See Alternative - Provider: Poonam Azul RN)0454 (See Alternative - Provider: Poonam Azul RN)0920 (See Alternative - Provider: Kennedy Carranza RN)1335 (See Alternative - Provider: Kennedy Carranza RN)1732 (See Alternative - Provider: Kennedy Carranza RN)2120 (See Alternative - Provider: Sweetie Villagomez RN) 0102 (See Alternative - Provider: Susana Marshall RN)0553 (See Alternative - Provider: Sweetie Villagomez RN)0945 (See Alternative - Provider: Lurdes Wiley RN)1327 (See Alternative - Provider: Lurdes Wiley RN)1746 (See Alternative - Provider: Lurdes Wiley RN)2149 (See Alternative - Provider: Sweetie Villagomez RN) 0147 (See Alternative - Provider: Sweetie Villagomez RN)0716 (See Alternative - Provider: Sweetie Villagomez RN)1117 (See Alternative - Provider: Ozzie Miranda, NANCY)1539 (See Alternative - Provider: Ozzie Miranda RN) senna (SENOKOT) tablet 8.6 mg 8.6 mg (1 tablet), Oral, DAILY PRN, Starting on Mon07/28/23 at 1723, Until Discontinued, Constipation, First line therapy for constipation, Post-op sodium chloride flush 0.9 % injection 5-40 mL 5-40 mL, IntraVENous, PRN, Starting on Mon07/28/23 at 1723, Until Discontinued, Line Care, After every IV line use, For Line Patency: Peripheral IV = 5 mL; Midline or Central Line = 10 mL/lumen. If following IV push medication, administer flush at same rate as the IV push. Flush volume is determined by type of infusion therapy being given. For non-viscous solutions use: Peripheral IV = 5 mL Midline or Central Line = 10 mL/lumen For viscous solutions (i.e. blood components, parenteral nutrition, contrast media, or after obtaining blood sample) use: Peripheral IV = 10 mL Midline or Central Line = 20 mL/lumen, Post-op Linked Groups Order Group 1: famotidine (PEPCID) tablet 20 mgJump to med 20 mg, Oral, 2 TIMES DAILY, First dose on Mon07/28/23 at 2100, Until Discontinued, Post-op Or famotidine (PEPCID) 20 mg in sodium chloride (PF) 0.9 % 10 mL injectionJump to med 20 mg, IntraVENous, 2 TIMES DAILY, First dose on Mon07/28/23 at 2100, Until Discontinued
Administer if oral route cannot be used
Post-op Group 2: lisinopril (PRINIVIL;ZESTRIL) tablet 40 mgJump to med 40 mg, Oral, DAILY, First dose on Mon07/28/23 at 1815, Until Discontinued And hydroCHLOROthiazide (HYDRODIURIL) tablet 25 mgJump to med 25 mg, Oral, DAILY, First dose on Mon07/28/23 at 1815, Until Discontinued Group 3: dextrose bolus 10% 125 mLJump to med 125 mL, IntraVENous, at 937.5 mL/hr, Administer over 8 Minutes, PRN, Other, Blood glucose 40 - 69 mg/dL and patient NOT ALERT or NPO, Starting on Mon07/28/23 at 1742
Repeat blood glucose in 15 minutes. If blood glucose remains LESS THAN 70 mg/dL, repeat treatment and recheck blood glucose in 15 minutes x 2. If using glycemic management system, dose as instructed per system. If blood glucose remains LESS THAN 70 mg/dL after 2 intravenous boluses start dextrose 10% at 100 mL/hour and notify provider.
Or dextrose bolus 10% 250 mLJump to med 250 mL, IntraVENous, at 937.5 mL/hr, Administer over 16 Minutes, PRN, Other, Blood glucose LESS THAN 40 mg/dL and patient NOT ALERT or NPO, Starting on Mon07/28/23 at 1742
Repeat blood glucose in 15 minutes. If blood glucose remains LESS THAN 70 mg/dL, repeat treatment and recheck blood glucose in 15 minutes x 2. If using glycemic management system, dose as instructed per system. If blood glucose remains LESS THAN 70 mg/dL after 2 intravenous boluses start dextrose 10% at 100 mL/hour and notify provider.
Group 4: HYDROmorphone (DILAUDID) injection 0.5 mg (CANCELED) 0.5 mg, IntraVENous, EVERY 3 HOURS PRN, Starting on Mon07/28/23 at 1723, Until 07/30/23 at 0808, Pain Moderate (4-6)
If oral and IV narcotics ordered, use oral first and only use IV if oral is ineffective or cannot take oral. Do Not give oral and IV within 1 hour of each other unless specifically ordered.
Post-op Or HYDROmorphone (DILAUDID) injection 1 mg (CANCELED)Jump to med 1 mg, IntraVENous, EVERY 3 HOURS PRN, Starting on Mon07/28/23 at 1723, Until 07/30/23 at 0808, Pain Severe (7-10)
If oral and IV narcotics ordered, use oral first and only use IV if oral is ineffective or cannot take oral. Do Not give oral and IV within 1 hour of each other unless specifically ordered.
Post-op Group 5: oxyCODONE (ROXICODONE) immediate release tablet 5 mgJump to med 5 mg, Oral, EVERY 4 HOURS PRN, Starting on Mon07/28/23 at 1723, Until Discontinued, Pain Moderate (4-6), Post-op Or oxyCODONE (ROXICODONE) immediate release tablet 10 mgJump to med 10 mg, Oral, EVERY 4 HOURS PRN, Starting on Mon07/28/23 at 1723, Until Discontinued, Pain Severe (7-10), Post-op FOR RECORDS PERTAINING TO PATIENTS WHO ARE OR HAVE BEEN ENROLLED IN A CHEMICAL DEPENDENCY/SUBSTANCEABUSE PROGRAM, SOME INFORMATION MAY BE OMITTED. This clinical summary was aggregated from multiple sources. Caution should be exercised in using it in the provision of clinical care. This summary normalizes information from multiple sources, and as a consequence, information in this document may materially change the coding, format and clinical context of patient data. In addition, data may be omitted in some cases. CLINICAL DECISIONS SHOULD BE BASED ON THE PRIMARY CLINICAL RECORDS. [employer] [facility]. provides no warranty or guarantee of the accuracy or completeness of information in this document.
[2024-01-08 10:08] VITALS: BP 130/73; PULSE 91; TEMP 36.9; O2SAT 97
[2024-01-08 10:14] LABS: Glucometer 136 mg/dL (74-106)
[2024-01-08 11:04] VITALS: BP 130/77; PULSE 91; O2SAT 97
[2024-01-08] MEDS: BUPIVACAINE HCL 0.25% PF 25 MG/10 ML VIAL INJ (11:06)
[2024-01-08] MEDS: 0.9 % SODIUM CHLORIDE 10 ML SYRINGE - SALINE FLUSH INJ (11:06)
[2024-01-08] MEDS: IOHEXOL 240 MG/ML - 10 ML VIAL 24 MG INJ (11:07)
[2024-01-08] MEDS: DEXAMETHASONE SOD PHOS 10 MG/ML VIAL INJ (11:07)
[2024-01-08] MEDS: LIDOCAINE HCL 2% 400 MG/20 ML MDV 4 ML INJ (11:07)
[2024-01-08 11:08] VITALS: BP 132/76; PULSE 89; O2SAT 97
--- NOTE | 2024-01-08 11:09 | P.ON_ITS ---
Date of procedure: 01/08/24 Pre-op diagnosis: Pain due to lumbar stenosis with neurogenic claudication Post-op diagnosis: same as pre-op Procedure: Procedure: Left L3-4 transforaminal epidural steroid injection Medications: Bupivacaine 0.25% 2cc, lidocaine 2% 1cc, dexamethasone 10mg The patient was seen and examined in the preoperative holding area.? Informed consent was obtained and placed on the chart.? Patient was brought to the medical procedure unit and placed in the prone position where a timeout was completed verifying the correct patient, procedure site, position, and planned special equipment using sterile aseptic technique.? Under direct fluoroscopic visualization a 25-gauge Quincke tipped spinal needle was advanced to the designated neural foramen where contrast dye was injected to show adequate spread.? The needle was inserted at level left L3-4. There was no evidence of vascular or adverse uptake.? Epidural spread was appreciated.? The above- mentioned injectate was then placed in a 1.5 mL aliquot preceded by negative aspiration.? The needle was removed.? The surgery site was covered.? Patient was taken to the postprocedural recovery area and monitored for an appropriate length of time before found suitable for discharge in the accompaniment of a r esponsible adult. Anesthesia: Local Surgeon: Macey Monterroso Pathology: none sent Condition: stable Disposition: no change
== END 2024-01-08 11:12 | disposition home or self-care (01) ==
LOC: SURGOUT 09:28
PROVIDERS: PCP Family Medicine; Visit Provider Anesthesiology
DX: M48.062 Spinal stenosis, lumbar region with neurogenic claudication (principal)
CPT/HCPCS: 36415; 64483; 82948; J0665; J1100; Q9966

== ENCOUNTER 2024-01-25 08:56 | Outpatient (OUT) | payer OTHER, MEDICARE, SELFPAY ==
--- OUTSIDE RECORDS SUMMARY | 2024-01-25 09:07 | XMS_ITS | CCD ---
Author Organization [facility] Care Team Providers Care Senior Game Designer Name Role Phone LAKSHMIPATHY ., NARENDRANATH Consulting [...] Unavailable LAKSHMIPATHY ., NARENDRANATH Admitting Olga vailable FURLONG, DR WALTER Toney Primary Care Unavailable TEJINDER .DR ABDOULAYE Attending Unavailable GEORGE .MARIA DOLORES Consulting Unavailable MARR ., DR ABDOULAYE Lundy Admitting Unavailable FURLONG, DR WLATER Toney Primary Care Unavailable FURLONG, DR WALTER Toney Referring Unavailable MARR ., DR ABDOULAYE Lundy Admitting Unavailable MARR ., DR ABDOULAYE Lundy Attending Unavailable GEORGE ., MARIA DOLORES Consulting Unavailable LAKSHMIPATHY ., NURIA Consulting Olga vailable FURLONG, DR WALTER Toney Primary Care Unavailable LAKSHMIPATHY ., NARENDURSSELLATH Attending Olga vailable LAKSHMIPATHY ., NARENDRANATH Admitting Olga vailable OHLIGERANDRIATAQUERIA Consulting Unavailable TOPHER, DAY Attending Unavailable TOPHER, DAY Admitting Unavailable FURLONG, DR WALTER Toney Primary Care Unavailable MISSION, DR GUILLERMO Braun Consulting Unavailable TOPHER, DAY Consulting Unavailable LAKSHMIPATHY ., NARENDRUSSELLATH Attending Olga vailable WEST, DR GUILLERMO Braun Consulting Unavailable FURLONG, DR WALTER Toney Primary Care Unavailable LAKSHMIPATHY ., CRISTHIANENDRANATH Admitting Olga vailable LAKSHMIPATHY ., NARENDRUSSELLATH Consulting Olga vailable TOPHER, DAY Attending Unavailable ZIEBER, DR WILL Guerrero Consulting Unavailable FURLONG, DR WALTER Toney Primary Care Unavailable TOPHER, DAY Admitting Unavailable TOPHER, DAY Consulting Unavailable LAKSHMIPATHY ., NARENDRUSSELLATH Attending Olga vailable LAKSHMIPATHY ., NARENDRANATH Admitting Olga vailable FURLONG, DR WALTER Toney Primary Care Unavailable ZIEBERDR WILL Consulting Unavailable LAKSHMIPATHY ., CRISTHIANENDLAURA Consulting Olga vailable LAKSHMIPATHY ., NARENDRANATH Attending Olga vailable LAKSHMIPATHY ., NARENDRANATH Admitting Olga vailable HALKER .LAURA Consulting Unavailable FURLONG, DR WALTER Toney Primary Care Unavailable TOPHER, DAY L Primary Care Unavailable CUAUHTEMOC YODER Referring Unavailable Furlong Walter MOY Primary Care Provider Topher CONTAINER FINISHING INSPECTOR - [facility], Day Primary Care Provider Topher CONTAINER FINISHING INSPECTOR[facility], Day Primary Care Provider MIKE TOWNSEND Attending Unavailable MIKE TOWNSEND Referring Unavailable TOPHER, DAY L Primary Care Unavailable ADENSBETHANY W Referring [...] Unavailable TOPHER, DAY L Primary Care Unavailable MOHAMUD PEDRO Referring Unavailable TOPHER, DAY L Primary [...] Unavailable TOPHER, DAY L Primary Care Unavailable Loc ANDERSON, Macey Rivas Attending Unavailable Loc ANDERSON, Macey Rivas Attending Unavailable Loc ANDERSON, Macey Rivas Attending Unavailable Medications Current Medications Medication Drug Class(es) [...] E) injection 5 mg polyethylene glycol [id number] [id number] mg powder for oral solution (1 source) [...] by mouth daily 0 04/21/2023 Active sennosides, longterm 8.6 mg oral tablet (1 source) Start: [...] pronounced at L3-4 to a severe degree. [facility] RIS CONSOLIDATED EXAMINATION: TWO XRAY [...] intact. The paravertebral soft tissues are unremarkable. [facility] Blake Sneed MD - 11/29/2023 [...] pronounced at L3-4 to a severe degree. [facility] [employer] No Panel InformationOrdered By: Blake Hale on 11-29-2023 [employer] Work Phone: XR LUMBAR SPINE FLEXION AND [...] Blake Hale MD 11/29/23 Final result Normal [facility] XR SPINE ENTIRE (2-3 VIEWS)o n 11-29-2023 [...] Blake Hale MD 11/29/23 Final result Normal [facility] No Panel Informationon 11-26 Radiology Study observation (narrative) [facility] XR CERVICAL SPINE (2-3 VIEWS )on [...] Martinez Kelly MD 11/27/23 Final result Normal [facility] XR CERVICAL SPINE (2-3 VIEWS )on 09-24-2023 [...] Cortez Peralta DO 09/24/23 Final result Normal [facility] Basic Metab w/rfx MGon 07-31 Anion gap [Moles/Vol] 11 mmol/L Normal 9-17 [facility] Comment on above: Performed By: #### T YS #### [address] [address] Glass [employer]er: Kan Craig MD Calcium [Mass/Vol] 9.0 mg/dL Normal 8.6-10.4 [facility] Comment on above: Performed By: #### T YS #### [address] [address] Glass Presser: Kan Craig MD Chloride [Moles/Vol] 98 mmol/L Normal 98-107 [facility] Comment on above: Performed By: #### T YS #### [address] [address] Glass [employer]er: Kan Craig MD CO2 [Moles/Vol] 24 mmol/L Normal 20-31 [facility] Comment on above: Performed By: #### T YS #### [address] [address] Glass Presser: Kan Craig MD Creatinine [Mass/Vol] 0.6 mg/dL Low 0.7-1.2 [facility] Comment on above: Performed By: #### T YS #### [address] [address] Glass Presser: Kan Craig MD GFR/1.73 sq M.predicted among non-blacks MDRD (S/P/Bld) [Vol rate/Area] mL/min/{1.73_m2} Normal >60 [facility] Comment on above: Result Comment: These results [...] secretion. Performed By: #### T YS #### [facility] [employer] [address] [place] [address] Glass [employer]er: Kan Craig MD Glucose [Mass/Vol] 155 mg/dL High 70-99 [facility] Comment on above: Performed By: #### T YS #### [address] [address] Glass [employer]: Kan Craig MD Potassium [Moles/Vol] 3.7 mmol/L Normal 3.7-5.3 [facility] Comment on above: Performed By: #### T YS #### [facility] [employer] [address] [place] [address] Glass [employer]er: Kan Craig MD Sodium [Moles/Vol] 133 mmol/L Low 135-144 [facility] Comment on above: Performed By: #### T YS #### [address] [address] [employer]er: Kan Craig MD Urea nitrogen [Mass/Vol] 14 mg/dL Normal 8-23 [facility] Comment on above: Performed By: #### T YS #### [address] [address] Glass Presser: Kan Craig MD Basic Metabolic Panel w/ Ref analisa to MGon 07-31-2023 Anion gap [Moles/Vol] 11 mmol/L 9 - 17 mmol/L [facility] Calcium [Mass/Vol] 9.0 mg/dL 8.6 - 10. 4 mg/dL [facility] Chloride [Moles/Vol] 98 mmol/L 98 - 10 7 mmol/L [facility] CO2 [Moles/Vol] 24 mmol/L 20 - 31 mmol/L [facility] Creatinine [Mass/Vol] 0.6 mg/dL Low 0.7 - 1.2 mg/dL [facility] GFR/1.73 sq M.predicted MDRD (S/P/Bld) [Vol rate/Area] - PINF [facility] Comment on above: These results are [...] 155 mg/dL High 70 - 99 mg/dL [facility] Potassium [Moles/Vol] 3.7 mmol/L 3.7 - 5.3 mmol/L [facility] Sodium [Moles/Vol] 133 mmol/L Low 135 - 144 mmol/L [facility] Urea nitrogen [Mass/Vol] 14 mg/dL 8 - 23 mg/dL [facility] CBC with Auto Differentialon 07-31-2023 Basophils (Bld) [#/Vol] 0.09 10*3/uL [facility] Basophils/100 WBC (Bld) 1 % 0 - 2 % [facility] Eosinophils (Bld) [#/Vol] 0.09 10*3/uL [facility] Eosinophils/100 WBC (Bld) 1 % 1 - 4 % [facility] Erythrocyte distribution width (RBC) [Ratio] 11.9 % 11.8 - 14.4 % [facility] Hematocrit (Bld) [Volume fraction] 45.5 % 40.7 - 50.3 % [facility] Hemoglobin (Bld) [Mass/Vol] 15.3 g/dL 13.0 - 17.0 g/dL [facility] Immature granulocytes (Bld) [#/Vol] [facility] Immature granulocytes/100 WBC (Bld) 0 % 0 [facility] Interpretation and review of laboratory results Abnormal [facility] Lymphocytes/100 WBC (Bld) 22 % Low 24 - 43 % [facility] Lymphocytes/100 WBC (Bld) 1.89 % [facility] MCH (RBC) [Entitic mass] 31.3 pg 25.2 - 33.5 pg [facility] MCHC (RBC) [Mass/Vol] 33.6 g/dL 28.4 - 34.8 g/dL [facility] MCV (RBC) [Entitic vol] 93.0 fL 82.6 - 102.9 fL [facility] Monocytes/100 WBC (Bld) 11 % 3 - 12 % [facility] Monocytes/100 WBC (Bld) 0.96 % [facility] Neutrophils/100 WBC (Bld) 65 % 36 - 65 % [facility] Nucleated RBC/100 WBC (Bld) [Ratio] 0.0 % 0.0 per 100 WBC [facility] Platelet mean volume (Bld) [Entitic vol] 10.6 fL 8.1 - 13.5 fL [facility] Platelets (Bld) [#/Vol] 234 10*3/uL [facility] RBC (Bld) [#/Vol] 4.89 10*6/uL 4.21 - 5.7 7 m/uL [facility] Segmented neutrophils/100 WBC (Bld) 5.57 % [facility] WBC other (Bld) [#/Vol] 8.6 [facility] CBC with Diffon 07-31-2023 Abs. Basophil 0.09 k/uL Normal 0.00-0.20 [facility] Comment on above: Performed By: #### T YS #### [facility] [employer] [address] [place] [address] Glass Presser: Kan Craig MD Abs.Imm.Granulocyte <0.03 Normal 0.00-0.30 [facility] Comment on above: Performed By: #### T YS #### [address] [address] Glass Presser: Kan Craig MD Abs.Neutrophil (Seg) 5.57 k/uL Normal 1.50-8.10 [facility] Comment on above: Performed By: #### T YS #### [address] [address] Glass Presser: Kan Craig MD Basophils/100 WBC (Bld) 1 % Normal 0-2 [facility] Comment on above: Performed By: #### T YS #### [address] [address] Glass Presser: Kan Craig MD Eosinophils (Bld) [#/Vol] 0.09 10*3/uL Normal 0.00-0.44 [facility] Comment on above: Performed By: #### T YS #### [address] [address] Glass Presser: Kan Craig MD Eosinophils/100 WBC (Bld) 1 % Normal 1-4 [facility] Comment on above: Performed By: #### T YS #### [address] [address] Glass Presser: Kan Craig MD Erythrocyte distribution width (RBC) [Ratio] 11.9 % Normal 11.8-14.4 [facility] Comment on above: Performed By: #### T YS #### [address] [address] Glass Presser: Kan Craig MD Hematocrit (Bld) [Volume fraction] 45.5 % Normal 40.7-50.3 [facility] Comment on above: Performed By: #### T YS #### [address] [address] Glass Presser: Kan Craig MD Hemoglobin (Bld) [Mass/Vol] 15.3 g/dL Normal 13.0-17.0 [facility] Comment on above: Performed By: #### T YS #### [address] [address] Glass Presser: Kan Craig MD Immature granulocytes/100 WBC (Bld) 0 % Normal 0 [facility] Comment on above: Performed By: #### T YS #### [address] [address] Glass Presser: Kan Craig MD Lymphocytes (Bld) [#/Vol] 1.89 10*3/uL Normal 1.10-3.70 [facility] Comment on above: Performed By: #### T YS #### [address] [address] Glass Presser: Kan Craig MD Lymphocytes/100 WBC (Bld) 22 % Low 24-43 [facility] Comment on above: Performed By: #### T YS #### [address] [address] Glass Presser: Kan Craig MD MCH (RBC) [Entitic mass] 31.3 pg Normal 25.2-33.5 [facility] Comment on above: Performed By: #### T YS #### [address] [address] Glass Presser: Kan Craig MD MCHC (RBC) [Mass/Vol] 33.6 g/dL Normal 28.4-34.8 [facility] Comment on above: Performed By: #### T YS #### [address] [address] Glass Presser: Kan Craig MD MCV (RBC) [Entitic vol] 93.0 fL Normal 82.6-102.9 [facility] Comment on above: Performed By: #### T YS #### [address] [address] Glass Presser: Kan Craig MD Monocytes (Bld) [#/Vol] 0.96 10*3/uL Normal 0.10-1.20 [facility] Comment on above: Performed By: #### T YS #### [address] [address] Glass Presser: Kan Craig MD Monocytes/100 WBC (Bld) 11 % Normal 3-12 [facility] Comment on above: Performed By: #### T YS #### [address] [address] Glass Presser: Kan Craig MD Neutrophil (Seg) 65 % Normal 36-65 [facility] Comment on above: Performed By: #### T YS #### [address] [address] Glass Presser: Kan Craig MD NRBC Automated 0.0 per 100 WBC Normal 0.0 [facility] Comment on above: Performed By: #### T YS #### [address] [address] Glass Presser: Kan Craig MD Platelet mean volume (Bld) [Entitic vol] 10.6 fL Normal 8.1-13.5 [facility] Comment on above: Performed By: #### T YS #### [address] [address] Glass Presser: Kan Craig MD Platelets (Bld) [#/Vol] 234 10*3/uL Normal 138-453 [facility] Comment on above: Performed By: #### T YS #### [address] [address] Glass Presser: Kan Craig MD RBC (Bld) [#/Vol] 4.89 10*6/uL Normal 4.21-5.77 [facility] Comment on above: Performed By: #### T YS #### [facility] [address] [place], [place] [id number] Glass Presser: Kan Craig MD WBC (Bld) [#/Vol] 8.6 10*3/uL Normal 3.5-11.3 [facility] Comment on above: Performed By: #### T YS #### [facility] [address] [place] [address] Glass Presser: Kan Craig MD EKG 12 LeadOrdered By: Froilan Hartmann on 07-31-2023 Atrial Rate 114 BPM [employer] Phone: P [place] 48 degrees BON [employer] Work Phone: P-R Interval 168 ms [employer] Work Phone: Q-T Interval 316 ms [employer] Work Phone: QRS Duration 86 ms BON [employer] Work Phone: QTc Calculation (Bazett) 435 ms [employer] Work Phone: R [place] -37 degrees BON [employer] Work Phone: T [place] 37 degrees BON [employer] Work Phone: Ventricular Rate 114 BPM BON [employer] Work Phone: BON [employer] Work Phone: EKG 12 Leadon 07-31-2023 Sinus tachycardia Left axis deviation Low voltage QRS 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 rate has increased BY 44 BPM [facility] STV Froilan Kaminski MD - 07/31/2023 Sinus tachycardia Left axis deviation Low voltage QRS 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 rate has increased BY 44 BPM [facility] Glucose,Whole Bloodon 2023 Glucose [Mass/Vol] 177 mg/dL High 75-110 [facility] Glucose [Mass/Vol] 166 mg/dL High 75-110 [facility] Lipid Panelon 07-31-2023 Cholesterol [Mass/Vol] 141 mg/dL NINF - 200 mg/dL [facility] Comment on above: Cholesterol Guidelines: <200 Desirable 200-240 Borderline >240 Undesirable Cholesterol in HDL [Mass/Vol] 34 mg/dL Low 40 - PINF mg/dL [facility] Comment on above: HDL Guidelines: <40 Undesirable 40-59 Borderline >59 Desirable Cholesterol in LDL [Mass/Vol] 73 mg/dL 0 - 130 mg/dL [facility] Comment on above: LDL Guidelines: <100 Desirable 100-129 Near to/above Desirable 130-159 Borderline >159 Undesirable Direct (measured) LDL and calculated LDL are not interchangeable tests. Cholesterol.total/Chol esterol in HDL [Mass ratio] 4.1 {ratio} NINF - 5 [facility] Triglyceride [Mass/Vol] 169 mg/dL High NINF - 150 mg/dL [facility] Comment on above: Triglyceride Guidelines: <150 Desirable 150-199 Borderline 200-499 High >499 Very high Based on AHA Guidelines for fasting triglyceride, March 2012. Lipid Profileon 07-31-2023 Cholesterol [Mass/Vol] 141 mg/dL Normal <200 [facility] Comment on above: Result Comment: Cholesterol Guidelines: <200 Desirable 200-240 Borderline >240 Undesirable Performed By: #### T YS #### [employer] [address] [place] [address] Glass Presser: Kan Craig MD Cholesterol in HDL [Mass/Vol] 34 mg/dL Low >40 [facility] Comment on above: Result Comment: HDL Guidelines: <40 Undesirable 40-59 Borderline >59 Desirable Performed By: #### T YS #### [employer] [facility] [place] [address] Glass Presser: Kan Craig MD Cholesterol in LDL [Mass/Vol] 73 mg/dL Normal 0-130 [facility] Comment on above: Result Comment: LDL Guidelines: <100 Desirable 100-129 Near to/above Desirable 130-159 Borderline >159 Undesirable Direct (measured) LDL and calculated LDL are not interchangeable tests. Performed By: #### T YS #### [employer] [address] [place] [address] Glass Presser: Kan Craig MD Cholesterol.total/Chol esterol in HDL [Mass ratio] 4.1 {ratio} Normal <5 [facility] Comment on above: Performed By: #### T YS #### [facility] [employer] [address] [place] [id number] Glass Presser: Kan Craig MD Triglyceride [Mass/Vol] 169 mg/dL High <150 [facility] Comment on above: Result Comment: Triglyceride Guidelines: <150 Desirable 150-199 Borderline 200-499 High >499 Very high Based on AHA Guidelines for fasting triglyceride, March 2012. Performed By: #### T YS #### [facility] [employer] [address] [place] [address] Glass Presser: Kan Craig MD No Panel Informationon 07-31 Interpretation and review of laboratory results Abnormal [facility] [employer] [facility] [employer] POC Glucose Fingerstickon Glucose [Mass/Vol] 177 mg/dL High 75 - 110 mg/dL [facility] [employer] Interpretation and review of laboratory results Abnormal [facility] [employer] [facility] [employer] Glucose [Mass/Vol] 166 mg/dL High 75 - 110 mg/dL [facility] [employer] Interpretation and review of laboratory results Abnormal [facility] [employer] [facility] [employer] CT CHEST PULMONARY EMBOLISM W CONTRASTon 07-30-2023 [...] Adan Hodges MD 07/30/23 Final result Normal [facility] 1. No evidence of pulmonary embolism or acute pulmonary abnormality. 2. Three-vessel coronary artery calcification. [facility] RIS CONSOLIDATED EXAMINATION: CTA OF THE CHEST [...] No acute bone or soft tissue abnormality. PN RIS CONSOLIDATED Adan Hodges MD - 07/30/2023 [...] pulmonary abnormality. 2. Three-vessel coronary artery calcification. [facility] Radiology Study observation (narrative) [facility] CT CHEST PULMONARY EMBOLISM W CONTRASTOrdered By: Adan Hodges on 07-30-2023 [facility] Work Phone: Glucose,Whole Bloodon 2023 Glucose [Mass/Vol] 167 mg/dL High 75-110 [facility] Glucose [Mass/Vol] 149 mg/dL High 75-110 [facility] Glucose [Mass/Vol] 153 mg/dL High 75-110 [facility] Glucose [Mass/Vol] 142 mg/dL High 75-110 [facility] Hemoglobin A1Con 07-30-2023 Average glucose Estimated from glycated hemoglobin (Bld) [Mass/Vol] 137 mg/dL [facility] Comment on above: The ADA and AACC rec ommend providing the estimated average glucose result to permit better patient understanding of their HBA1c result. HbA1c (Bld) [Mass fraction] 6.4 % High 4.0 - 6.0 % [facility] Interpretation and review of laboratory results Abnormal [facility] Glucose [Mass/Vol] 137 mg/dL Normal [facility] Comment on above: Result Comment: The ADA and AACC recommend providing the estimated average glucose result to permit better patient understanding of their HBA1c result. Performed By: #### B MPX, GLYHGB, CDP ####[facility] [id number] [place], [place] [id number] lab Director: Kan Craig MD HbA1c (Bld) [Mass fraction] 6.4 % High 4.0-6.0 [facility] Comment on above: Performed By: #### B MPX, GLYHGB, CDP ####[facility] [id number] [place], [place] [id number] lab Director: Kan Craig MD POC Glucose Fingerstickon Glucose [Mass/Vol] 167 mg/dL High 75 - 110 mg/dL [facility] Interpretation and review of laboratory results Abnormal [facility] Glucose [Mass/Vol] 149 mg/dL High 75 - 110 mg/dL [facility] Interpretation and review of laboratory results Abnormal [facility] Glucose [Mass/Vol] 153 mg/dL High 75 - 110 mg/dL [facility] Interpretation and review of laboratory results Abnormal [facility] Glucose [Mass/Vol] 142 mg/dL High 75 - 110 mg/dL [facility] Interpretation and review of laboratory results Abnormal [facility] Basic Metab w/rfx MGon 07-29 Anion gap [Moles/Vol] 11 mmol/L Normal 9-17 [facility] Comment on above: Performed By: #### T YS #### [address] [address] Glass Presser: Kan Craig MD Calcium [Mass/Vol] 8.5 mg/dL Low 8.6-10.4 [facility] Comment on above: Performed By: #### T YS #### [address] [address] Glass Presser: Kan Craig MD Chloride [Moles/Vol] 105 mmol/L Normal 98-107 [facility] Comment on above: Performed By: #### T YS #### [address] [address] Glass Presser: Kan Craig MD CO2 [Moles/Vol] 21 mmol/L Normal 20-31 [facility] Comment on above: Performed By: #### T YS #### [address] [address] Glass Presser: Kan Craig MD Creatinine [Mass/Vol] 0.8 mg/dL Normal 0.7-1.2 [facility] Comment on above: Performed By: #### T YS #### [address] [address] Glass Presser: Kan Craig MD GFR/1.73 sq M.predicted among non-blacks MDRD (S/P/Bld) [Vol rate/Area] mL/min/{1.73_m2} Normal >60 [facility] Comment on above: Result Comment: These results [...] secretion. Performed By: #### T YS #### [address] [address] Glass Presser: Kan Craig MD Glucose [Mass/Vol] 146 mg/dL High 70-99 [facility] Comment on above: Performed By: #### T YS #### [facility] [address] [place] [address] Glass Presser: Kan Craig MD Potassium [Moles/Vol] 4.4 mmol/L Normal 3.7-5.3 [facility] Comment on above: Performed By: #### T YS #### [facility] [employer] [facility] [place] [address] Glass Presser: Kan Craig MD Sodium [Moles/Vol] 137 mmol/L Normal 135-144 [facility] Comment on above: Performed By: #### T YS #### [facility] [address] [place] [address] Glass Presser: Kan Craig MD Urea nitrogen [Mass/Vol] 14 mg/dL Normal 8-23 [facility] Comment on above: Performed By: #### T YS #### [facility] [address] [place] [address] Glass Presser: Kan Craig MD Basic Metabolic Panel w/ Ref analisa to MGon 07-29-2023 Anion gap [Moles/Vol] 11 mmol/L 9 - 17 mmol/L [facility] [employer] Calcium [Mass/Vol] 8.5 mg/dL Low 8.6 - 10. 4 mg/dL [facility] Chloride [Moles/Vol] 105 mmol/L 98 - 10 7 mmol/L [facility] CO2 [Moles/Vol] 21 mmol/L 20 - 31 mmol/L [facility] Creatinine [Mass/Vol] 0.8 mg/dL 0.7 - 1.2 mg/dL [facility] GFR/1.73 sq M.predicted MDRD (S/P/Bld) [Vol rate/Area] - PINF [facility] [employer] [facility] [employer] Comment on above: These results are not [...] 146 mg/dL High 70 - 99 mg/dL [facility] Interpretation and review of laboratory results Abnormal [facility] Potassium [Moles/Vol] 4.4 mmol/L 3.7 - 5.3 mmol/L [facility] Sodium [Moles/Vol] 137 mmol/L 135 - 144 mmol/L [facility] Urea nitrogen [Mass/Vol] 14 mg/dL 8 - 23 mg/dL [facility] CBC with Auto Differentialon 07-29-2023 Basophils (Bld) [#/Vol] 0.06 10*3/uL [facility] Basophils/100 WBC (Bld) 1 % 0 - 2 % [facility] Eosinophils (Bld) [#/Vol] [facility] Eosinophils/100 WBC (Bld) 0 % Low 1 - 4 % [facility] Erythrocyte distribution width (RBC) [Ratio] 12.2 % 11.8 - 14.4 % [facility] Hematocrit (Bld) [Volume fraction] 46.7 % 40.7 - 50.3 % [facility] Hemoglobin (Bld) [Mass/Vol] 15.5 g/dL 13.0 - 17.0 g/dL [facility] Immature granulocytes (Bld) [#/Vol] 0.05 10*3/uL [facility] Immature granulocytes/100 WBC (Bld) 0 % 0 [facility] Interpretation and review of laboratory results Abnormal [facility] Lymphocytes/100 WBC (Bld) 16 % Low 24 - 43 % [facility] Lymphocytes/100 WBC (Bld) 1.94 % [facility] MCH (RBC) [Entitic mass] 31.4 pg 25.2 - 33.5 pg [facility] MCHC (RBC) [Mass/Vol] 33.2 g/dL 28.4 - 34.8 g/dL [facility] MCV (RBC) [Entitic vol] 94.7 fL 82.6 - 102.9 fL [facility] Monocytes/100 WBC (Bld) 10 % 3 - 12 % [facility] Monocytes/100 WBC (Bld) 1.24 % High [facility] Neutrophils/100 WBC (Bld) 73 % High 36 - 65 % [facility] Nucleated RBC/100 WBC (Bld) [Ratio] 0.0 % 0.0 per 100 WBC [facility] Platelet mean volume (Bld) [Entitic vol] 10.8 fL 8.1 - 13.5 fL [facility] Platelets (Bld) [#/Vol] 243 10*3/uL [facility] RBC (Bld) [#/Vol] 4.93 10*6/uL 4.21 - 5.7 7 m/uL [facility] Segmented neutrophils/100 WBC (Bld) 8.89 % High [facility] WBC other (Bld) [#/Vol] 12.2 High [facility] CBC with Diffon 07-29-2023 Abs. Basophil 0.06 k/uL Normal 0.00-0.20 [facility] Comment on above: Performed By: #### T YS #### [employer] [address] [place] [address] Glass [employer]er: Kan Craig MD Abs. Eosinophil <0.03 Normal 0.00-0.44 [facility] Comment on above: Performed By: #### T YS #### [employer] [address] [place], [place] [id number] [employer]: Kan Craig MD Abs.Imm.Granulocyte 0.05 k/uL Normal 0.00-0.30 [facility] Comment on above: Performed By: #### T YS #### [employer] [address] [place], [place] [id number] [employer]: Kan Craig MD Abs.Neutrophil (Seg) 8.89 k/uL High 1.50-8.10 [facility] Comment on above: Performed By: #### T YS #### [address] [address] Glass [employer]er: Kan Craig MD Basophils/100 WBC (Bld) 1 % Normal 0-2 [facility] Comment on above: Performed By: #### T YS #### [address] [address] Glass Presser: Kan Craig MD Eosinophils/100 WBC (Bld) 0 % Low 1-4 [facility] Comment on above: Performed By: #### T YS #### [address] [address] Glass [employer]er: Kan Craig MD Erythrocyte distribution width (RBC) [Ratio] 12.2 % Normal 11.8-14.4 [facility] Comment on above: Performed By: #### T YS #### [address] [address] Glass [employer]er: Kan Craig MD Hematocrit (Bld) [Volume fraction] 46.7 % Normal 40.7-50.3 [facility] Comment on above: Performed By: #### T YS #### [address] [address] Glass [employer]er: Kan Craig MD Hemoglobin (Bld) [Mass/Vol] 15.5 g/dL Normal 13.0-17.0 [facility] Comment on above: Performed By: #### T YS #### [address] [address] Glass [employer]er: Kan Craig MD Immature granulocytes/100 WBC (Bld) 0 % Normal 0 [facility] Comment on above: Performed By: #### T YS #### [address] [address] Glass [employer]er: Kan Craig MD Lymphocytes (Bld) [#/Vol] 1.94 10*3/uL Normal 1.10-3.70 [facility] Comment on above: Performed By: #### T YS #### [address] [address] Glass Presser: Kan Craig MD Lymphocytes/100 WBC (Bld) 16 % Low 24-43 [facility] Comment on above: Performed By: #### T YS #### [address] [address] Glass [employer]er: Kan Craig MD MCH (RBC) [Entitic mass] 31.4 pg Normal 25.2-33.5 [facility] Comment on above: Performed By: #### T YS #### [address] [address] Glass Presser: Kan Craig MD MCHC (RBC) [Mass/Vol] 33.2 g/dL Normal 28.4-34.8 [facility] Comment on above: Performed By: #### T YS #### [address] [address] Glass Presser: Kan Craig MD MCV (RBC) [Entitic vol] 94.7 fL Normal 82.6-102.9 [facility] Comment on above: Performed By: #### T YS #### [address] [address] Glass Presser: Kan Craig MD Monocytes (Bld) [#/Vol] 1.24 10*3/uL High 0.10-1.20 [facility] Comment on above: Performed By: #### T YS #### [address] [address] Glass Presser: Kan Craig MD Monocytes/100 WBC (Bld) 10 % Normal 3-12 [facility] Comment on above: Performed By: #### T YS #### [address] [address] Glass Presser: Kan Craig MD Neutrophil (Seg) 73 % High 36-65 [facility] Comment on above: Performed By: #### T YS #### [address] [address] Glass Presser: Kan Craig MD NRBC Automated 0.0 per 100 WBC Normal 0.0 [facility] Comment on above: Performed By: #### T YS #### [address] [address] Glass Presser: Kan Craig MD Platelet mean volume (Bld) [Entitic vol] 10.8 fL Normal 8.1-13.5 [facility] Comment on above: Performed By: #### T YS #### [address] [address] Glass Presser: Kan Craig MD Platelets (Bld) [#/Vol] 243 10*3/uL Normal 138-453 [facility] Comment on above: Performed By: #### T YS #### [address] [address] Glass Presser: Kan Craig MD RBC (Bld) [#/Vol] 4.93 10*6/uL Normal 4.21-5.77 [facility] Comment on above: Performed By: #### T YS #### [address] [address] Glass Presser: Kan Craig MD WBC (Bld) [#/Vol] 12.2 10*3/uL High 3.5-11.3 [facility] Comment on above: Performed By: #### T YS #### [employer] [address] [place] [address] Glass Presser: Kan Craig MD Glucose,Whole Bloodon 2023 Glucose [Mass/Vol] 151 mg/dL High 75-110 [facility] Glucose [Mass/Vol] 174 mg/dL High 75-110 [facility] Glucose [Mass/Vol] 166 mg/dL High 75-110 [facility] Glucose [Mass/Vol] 139 mg/dL High 75-110 [facility] No Panel Informationon 07-29 Radiology Study observation (narrative) [facility] POC Glucose Fingerstickon Glucose [Mass/Vol] 151 mg/dL High 75 - 110 mg/dL [facility] Interpretation and review of laboratory results Abnormal [facility] [employer] [facility] [employer] Glucose [Mass/Vol] 174 mg/dL High 75 - 110 mg/dL [facility] Interpretation and review of laboratory results Abnormal [facility] Glucose [Mass/Vol] 166 mg/dL High 75 - 110 mg/dL [facility] Interpretation and review of laboratory results Abnormal [facility]ITALBeijing [employer] Glucose [Mass/Vol] 139 mg/dL High 75 - 110 mg/dL [facility] Interpretation and review of laboratory results Abnormal [facility] Portable XR Chest AP single viewon 07-29-2023 No radiographic evidence of acute cardiopulmonary process. Postop findings. [facility] EXAMINATION: ONE XRAY VIEW OF THE CHEST 07/29/2023 10:57 am COMPARISON: CT chest from 07/27/2023. HISTORY: ORDERING SYSTEM PROVIDED HISTORY: resp eval; postop TECHNOLOGIST PROVIDED HISTORY: resp eval; postop FINDINGS: Overlying ECG monitor leads and neck collar; cervical nina and hardware. Cardiomediastinal shadow unchanged. Lungs/cp angles clear. Probable slight left basilar atelectasis. No consolidation or sizable pleural effusion. Bones unchanged. [facility] Johan Douglas MD - 07/29/2023 EXAMINATION: [...] evidence of acute cardiopulmonary process. Postop findings. [facility] [employer] Portable XR Chest AP single viewOrdered By: Johan Douglas on 07-29-2023 [facility] [employer] Work Phone: XR CERVICAL SPINE (2-3 VIEWS [...] See Watt MD 07/29/23 Final result Normal [facility] XR CHEST PORTABLEon 07-29-19 XR CHEST PORTABLE [...] Johan Douglas MD 07/29/23 Final result Normal [facility] XR Cervical spine 2 or 3 Vie [...] Underlying degenerative changes in the cervical spine. [facility] [employer] XR Cervical spine 2 or 3 Vie wsOrdered By: See Watt on 07-29-2023 [facility] [employer] Work Phone: Calcium, Ionicon 07-28-2023 Calcium [Moles/Vol] 1.30 mmol/L Normal 1.13-1.33 [facility] Comment on above: Performed By: #### O HP, IOCAL ####[facility] [address] [place] [address] Lab Director: Kan Craig MD Calcium [Moles/Vol] 1.43 mmol/L High 1.13-1.33 [facility] Comment on above: Performed By: #### O HP, IOCAL, LACTIC ####[facility] [address] [place] [address] Lab Director: Kan Craig MD Calcium [Moles/Vol] 1.03 mmol/L Low 1.13-1.33 [facility] Comment on above: Performed By: #### I OCAL, OHP ####[facility] [address] [place] [address] Lab Director: Kan Craig MD Calcium, Ionizedon Calcium.ionized (Bld) [Moles/Vol] 1.30 mmol/L 1.13 - 1.33 mmol/L [facility] [employer] Calcium.ionized (Bld) [Moles/Vol] 1.43 mmol/L High 1.13 - 1.33 mmol/L [facility] [employer] Calcium.ionized (Bld) [Moles/Vol] 1.03 mmol/L Low 1.13 - 1.33 mmol/L [facility] FLUORO FOR SURGICAL PROCEDUR ESon 07-28-2023 FLUORO FOR SURGICAL PROCEDURES Radiology exam is complete. No Radiologist dictation. Please follow up with ordering provider. Final result Normal [facility] FLUORO FOR SURGICAL PROCEDURES Radiology exam is complete. No Radiologist dictation. Please follow up with ordering provider. Final result Normal [facility] Glucose (POC)on 07-28-2023 Glucose [Mass/Vol] 156 mg/dL High 74-100 [facility] Glucose,Whole Bloodon 2023 Glucose [Mass/Vol] 209 mg/dL High 75-110 [facility] Glucose [Mass/Vol] 200 mg/dL High 75-110 [facility] Glucose [Mass/Vol] 195 mg/dL High 75-110 [facility] Guidance-- during surgeryon 07-28-2023 Radiology exam is complete. No Radiologist dictation. Please follow up with ordering provider. [facility] Radiology exam is complete. No Radiologist dictation. Please follow up with ordering provider. [facility] Lactic Acidon 07-28-2023 Lactic Acid, Whole Blood 1.7 mmol/L 0.7 - 2.1 mmol/L [facility] Lactic Acid,Whole Bl 1.7 mmol/L Normal 0.7-2.1 [facility] Comment on above: Performed By: #### O HP, IOCAL, LACTIC ####[facility] [address] [place] [address] [facility] Director: Kan Craig MD No Panel Informationon 07-28 [employer] Interpretation and review of laboratory results Abnormal Moncai [facility]StudentFunder [facility]StudentFunder Interpretation and review of laboratory results Abnormal [facility]NG Advantage [facility] Advantage [facility] SYSTEMStudentFunder OPEN HEART PANELon Arterial patency Wrist artery --pre arterial puncture INFORMATION NOT PROVIDED [employer] Carboxyhemoglobin (Bld) [Mass fraction] 1.3 % 0 - 5 % [employer] Comment on above: Reference Range: Non-Smokers 0-2% Average Smoker 2-4% Heavy Smoker <10% Chloride [Moles/Vol] 108 mmol/L 98 - 11 0 mmol/L [employer] Glucose [Mass/Vol] 206 mg/dL High 75 - 110 mg/dL [facility]Student[facility]under HCO3 (Bld) [Moles/Vol] 22.1 mmol/L 22 - 27 mmol/L [facility] Hematocrit (Bld) [Volume fraction] 47.0 % 40.7 - 50.3 % [facility] Hemoglobin (Bld) [Mass/Vol] 15.4 g/dL [facility] Interpretation and review of laboratory results Abnormal [facility] Negative Base Excess, Art 2.7 mmol/L High 0.0 - 2.0 mmol/L [facility] Oxygen saturation in Blood 98.7 % 94 - 100 % [facility] Oxygen/Inspired gas Respiratory system --on ventilator 70 [facility] pCO2, Art, Temp Adj 36.5 32 - 45 [facility] pCO2, Arterial 40.2 [facility] pH, Art, Temp Adj 7.388 7.350 - 7.450 [facility] pH, Arterial 7.359 7.350 - 7.450 [facility] pO2, Art, Temp Adj 295.0 High [facility] pO2, Arterial 305.0 High [facility] Potassium [Moles/Vol] 4.0 mmol/L 3.6 - 5.0 mmol/L [facility] Sodium [Moles/Vol] 137 mmol/L 136 - 145 mmol/L [facility] Arterial patency Wrist artery --pre arterial puncture INFORMATION NOT PROVIDED [facility] Carboxyhemoglobin (Bld) [Mass fraction] 0.2 % 0 - 5 % [facility] Comment on above: Reference Range: Non-Smokers 0-2% Average Smoker 2-4% Heavy Smoker <10% Negative Base Excess, Art 3.3 mmol/L High 0.0 - 2.0 mmol/L [facility] Oxygen/Inspired gas Respiratory system --on ventilator 70% [facility] pCO2, Arterial 44.0 [facility] pH, Arterial 7.326 Low 7.350 - 7.450 [facility] pO2, Arterial 301.0 High [facility] Arterial patency Wrist artery --pre arterial puncture INFORMATION NOT PROVIDED [facility] Carboxyhemoglobin (Bld) [Mass fraction] 1.1 % 0 - 5 % [facility] Comment on above: Reference Range: Non-Smokers 0-2% Average Smoker 2-4% Heavy Smoker <10% Chloride [Moles/Vol] 116 mmol/L High 98 - 11 0 mmol/L [facility] Glucose [Mass/Vol] 150 mg/dL High 75 - 110 mg/dL [facility] HCO3 (Bld) [Moles/Vol] 19.7 mmol/L Low 22 - 27 mmol/L [facility] Hematocrit (Bld) [Volume fraction] 44.5 % 40.7 - 50.3 % [facility] Hemoglobin (Bld) [Mass/Vol] 14.5 g/dL [facility] Negative Base Excess, Art 5.1 mmol/L High 0.0 - 2.0 mmol/L [facility] Oxygen saturation in Blood 98.6 % 94 - 100 % [facility] Oxygen/Inspired gas Respiratory system --on ventilator 70 [facility] pCO2, Arterial 37.6 [facility] pH, Arterial 7.338 Low 7.350 - 7.450 [facility] pO2, Arterial 281.0 High [facility] Potassium [Moles/Vol] 2.9 mmol/L Critically low 3.6 - 5.0 mmol/L [facility] Sodium [Moles/Vol] 140 mmol/L 136 - 145 mmol/L [facility] Open Heart Panelon 4 Gabriel Test INFORMATION NOT PROVIDED Normal [facility] Comment on above: Performed By: #### O HP, IOCAL ####[employer] [address] [place] [address] Lab Director: Kan Craig MD Performed By: #### O HP, IOCAL, LACTIC ####[employer] [address] [place] [address] Lab Director: Kan Craig MD Body Temp. 35.0 Normal [facility] Comment on above: Performed By: #### O HP, IOCAL ####[employer] [address] [place] [address] Lab Director: Kan Craig MD Carboxy Hgb 1.3 % Normal 0-5 [facility] Comment on above: Result Comment: Reference Range: Non-Smokers 0-2% Average Smoker 2-4% Heavy Smoker <10% Performed By: #### O HP, IOCAL ####[facility] [address] [place], [place] [phone] Director: Kan Craig MD Chloride [Moles/Vol] 108 mmol/L Normal 98-110 [facility] Comment on above: Performed By: #### O HP, IOCAL ####[facility] [address] [place] [address] [phone] Director: Kan Craig MD FIO2 70 Normal [facility] Comment on above: Performed By: #### O HP, IOCAL ####[facility] [address] [place] [address] [phone] Director: Kan Craig MD Glucose [Mass/Vol] 206 mg/dL High 75-110 [facility] Comment on above: Performed By: #### O HP, IOCAL ####[facility] [address] [place], [place] [phone] Director: Kan Craig MD HCO3 (Bld) [Moles/Vol] 22.1 mmol/L Normal 22-27 [facility] Comment on above: Performed By: #### O HP, IOCAL ####[facility] [address] [place], [place] [phone] Director: Kan Craig MD Hematocrit (Bld) [Volume fraction] 47.0 % Normal 40.7-50.3 [facility] Comment on above: Performed By: #### O HP, IOCAL ####[facility] [address] [place], [place] [phone] Director: Kan Craig MD Hemoglobin (Bld) [Mass/Vol] 15.4 g/dL Normal 13.0-17.0 [facility] Comment on above: Performed By: #### O HP, IOCAL ####[facility] [address] [place] [address] Lab Director: Kan Craig MD Negative Base Excess 2.7 mmol/L High 0.0-2.0 [facility] Comment on above: Performed By: #### O HP, IOCAL ####[facility] [address] [place] [address] Lab Director: Kan Craig MD Oxygen (Bld) [Partial pressure] 305.0 mm[Hg] High 75-95 [facility] Comment on above: Performed By: #### O HP, IOCAL ####[facility] [address] [place] [address] [phone] Director: Kan Craig MD Oxygen saturation in Blood 98.7 % Normal 94-100 [facility] Comment on above: Performed By: #### O HP, IOCAL ####[facility] [address] [place] [address] Lab Director: Kan Craig MD pCO2 40.2 mmHg Normal 32-45 [facility] Comment on above: Performed By: #### O HP, IOCAL ####[facility] [address] [place], [place] [phone] Director: Kan Craig MD pCO2 Adj'd for Temp 36.5 Normal 32-45 [facility] Comment on above: Performed By: #### O HP, IOCAL ####[facility] [address] [place], [place] [phone] Director: Kan Craig MD pH (Bld) 7.359 [pH] Normal 7.350-7.450 [facility] Comment on above: Performed By: #### O HP, IOCAL ####[facility] [address] [place] [address] [phone] Director: Kan Craig MD pH Adjst'd for Temp. 7.388 Normal 7.350-7.450 [facility] Comment on above: Performed By: #### O HP, IOCAL ####[facility] [address] [place], [place] [phone] Director: Kan Craig MD pO2 Adjst'd for Temp 295.0 mmHg High 75-95 [facility] Comment on above: Performed By: #### O HP, IOCAL ####[facility] [address] [place], [place] [phone] Director: Kan Craig MD Potassium [Moles/Vol] 4.0 mmol/L Normal 3.6-5.0 [facility] Comment on above: Performed By: #### O HP, IOCAL ####[facility] [address] [place], [place] [phone] Director: Kan Craig MD Sodium [Moles/Vol] 137 mmol/L Normal 136-145 [facility] Comment on above: Performed By: #### O HP, IOCAL ####[facility] [address] [place], [place] [phone] Director: Kan Craig MD Chloride [Moles/Vol] 111 mmol/L High 98-110 [facility] Comment on above: Performed By: #### O HP, IOCAL, LACTIC ####[facility] [address] [place], [place] [phone] Director: Kan Craig MD Glucose [Mass/Vol] 165 mg/dL High 75-110 [facility] Comment on above: Performed By: #### O HP, IOCAL, LACTIC ####[facility] [address] [place], [place] [phone] Director: Kan Craig MD HCO3 (Bld) [Moles/Vol] 22.3 mmol/L Normal 22-27 B ON [facility] Comment on above: Performed By: #### O HP, IOCAL, LACTIC ####[facility] [address] [place] [address] Lab Director: Kan Craig MD Hematocrit (Bld) [Volume fraction] 47.3 % Normal 40.7-50.3 [facility] Comment on above: Performed By: #### O HP, IOCAL, LACTIC ####[facility] [address] [place] [phone])[phone] Director: Kan Craig MD Hemoglobin (Bld) [Mass/Vol] 15.4 g/dL Normal 13.0-17.0 [facility] Comment on above: Performed By: #### O HP, IOCAL, LACTIC ####[facility] [address] [place] [phone])[phone] Director: Kan Craig MD Oxygen saturation in Blood 98.3 % Normal 94-100 [facility] Comment on above: Performed By: #### O HP, IOCAL, LACTIC ####[facility] [address] [place] [phone])[phone] Director: Kan Craig MD Potassium [Moles/Vol] 3.6 mmol/L Normal 3.6-5.0 [facility] Comment on above: Performed By: #### O HP, IOCAL, LACTIC ####[facility] [address] [place], [place] [address])[phone] Director: Kan Craig MD Sodium [Moles/Vol] 141 mmol/L Normal 136-145 [facility] Comment on above: Performed By: #### O HP, IOCAL, LACTIC ####[facility] [address] [place] [address] Lab Director: Kan Criag MD Carboxy Hgb 0.2 % Normal 0-5 [facility] Comment on above: Result Comment: Reference Range: Non-Smokers 0-2% Average Smoker 2-4% Heavy Smoker <10% Performed By: #### O HP, IOCAL, LACTIC ####[facility] [address] [place], [place] [phone] Director: Kan Craig MD FIO2 70% Normal [facility] Comment on above: Performed By: #### O HP, IOCAL, LACTIC ####[facility] [address] [place], [place] [phone] Director: Kan Craig MD Negative Base Excess 3.3 mmol/L High 0.0-2.0 [facility] Comment on above: Performed By: #### O HP, IOCAL, LACTIC ####[facility] [address] [place], [place] [phone] Director: Kan Craig MD Oxygen (Bld) [Partial pressure] 301.0 mm[Hg] High 75-95 [facility] Comment on above: Performed By: #### O HP, IOCAL, LACTIC ####[facility] [address] [place], [place] [phone] Director: Kan Craig MD pCO2 44.0 mmHg Normal 32-45 [facility] Comment on above: Performed By: #### O HP, IOCAL, LACTIC ####[facility] [address] [place], [place] [phone] Director: Kan Craig MD pH (Bld) 7.326 [pH] Low 7.350-7.450 [facility] Comment on above: Performed By: #### O HP, IOCAL, LACTIC ####[facility] [address] [place], [place] [phone] Director: MD Gabriel Joy Test INFORMATION NOT PROVIDED Normal [facility] Comment on above: Performed By: #### I OCAL, OHP #### [facility] [address] [place] [address] Glass [employer]er: Kan Craig MD Body Temp. 37.0 Normal [facility] Comment on above: Performed By: #### O HP, IOCAL, LACTIC ####[facility] [address] [place] [address] Lab Director: Kan Craig MD Performed By: #### I OCAL, OHP #### [facility] [address] [place] [address] [employer]: Kan Craig MD Carboxy Hgb 1.1 % Normal 0-5 [facility] Comment on above: Result Comment: Reference Range: Non-Smokers 0-2% Average Smoker 2-4% Heavy Smoker <10% Performed By: #### I OCAL, OHP #### [facility] [address] [place] [address] [employer]: Kan Craig MD Chloride [Moles/Vol] 116 mmol/L High 98-110 [facility] Comment on above: Performed By: #### I OCAL, OHP #### [facility] [address] [place] [address] [employer]: Kan Craig MD FIO2 70 Normal [facility] Comment on above: Performed By: #### I OCAL, OHP #### [facility] [employer] [address] [place] [phone] [employer]er: Kan Craig MD Glucose [Mass/Vol] 150 mg/dL High 75-110 [facility] Comment on above: Performed By: #### I OCAL, OHP #### [facility] [address] [place] [address] Glass Presser: Kan Craig MD HCO3 (Bld) [Moles/Vol] 19.7 mmol/L Low 22-27 M [facility] Comment on above: Performed By: #### I OCAL, OHP #### [facility] [employer] [address] [place] [address] Glass Presser: Kan Craig MD Hematocrit (Bld) [Volume fraction] 44.5 % Normal 40.7-50.3 [facility] Comment on above: Performed By: #### I OCAL, OHP #### [facility] [address] [place] [address] Glass Presser: Kan Craig MD Hemoglobin (Bld) [Mass/Vol] 14.5 g/dL Normal 13.0-17.0 [facility] Comment on above: Performed By: #### I OCAL, OHP #### [facility] [address] [place] [address] Glass Presser: Kan Craig MD Negative Base Excess 5.1 mmol/L High 0.0-2.0 [facility] Comment on above: Performed By: #### I OCAL, OHP #### [facility] [employer] [address] [place] [address] Glass Presser: Kan Craig MD Oxygen (Bld) [Partial pressure] 281.0 mm[Hg] High 75-95 [facility] Comment on above: Performed By: #### I OCAL, OHP #### [facility] [employer] [address] [place] [address] Glass Presser: Kan Craig MD Oxygen saturation in Blood 98.6 % Normal 94-100 [facility] Comment on above: Performed By: #### I OCAL, OHP #### [facility] [address] [place] [address] Glass Presser: Kan Craig MD pCO2 37.6 mmHg Normal 32-45 [facility] Comment on above: Performed By: #### I OCAL, OHP #### [facility] [employer] [address] [place] [address] Glass Presser: Kan Craig MD pH (Bld) 7.338 [pH] Low 7.350-7.450 [facility] Comment on above: Performed By: #### I OCAL, OHP #### [facility] [address] [place] [address] Glass Presser: Kan Craig MD Potassium [Moles/Vol] 2.9 mmol/L Critically low 3.6-5.0 [facility] Comment on above: Performed By: #### I OCAL, OHP #### [facility] [address] [place] [address] Glass Presser: Kan Craig MD Sodium [Moles/Vol] 140 mmol/L Normal 136-145 [facility] Comment on above: Performed By: #### I OCAL, OHP #### [facility] [address] [place], [place] [phone] Glass Presser: Kan Craig MD POC Glucose Fingerstickon Glucose [Mass/Vol] 209 mg/dL High 75 - 110 mg/dL [facility] Interpretation and review of laboratory results Abnormal [facility] [employer] [facility] [employer] Glucose [Mass/Vol] 200 mg/dL High 75 - 110 mg/dL [facility] Interpretation and review of laboratory results Abnormal [facility] [employer] [facility] Glucose [Mass/Vol] 195 mg/dL High 75 - 110 mg/dL [facility] Interpretation and review of laboratory results Abnormal [facility] [employer] [facility] [employer] POCT Glucoseon 07-28-2023 Glucose [Mass/Vol] 156 mg/dL High 74 - 100 mg/dL [facility] [employer] Interpretation and review of laboratory results Abnormal [facility] POTASSIUM (POC)on 07-28-2023 Potassium [Moles/Vol] 3.9 mmol/L 3.5 - 4.5 mmol/L [facility] [employer] Potassium (POC)on 07-28-2023 Potassium [Moles/Vol] 3.9 mmol/L Normal 3.5-4.5 [facility] CT CHEST WO CONTRASTon 07-27 CT CHEST [...] HISTORY: Stenosis of cervical spine with myelopathy ([facility]) TECHNOLOGIST PROVIDED HISTORY: please include SAGITTAL [...] Noel IV, MD 07/27/23 Final result Normal [facility] [place] [facility] APTTon 07-10-2023 aPTT Coag (Bld) [Time] 28.5 s Normal 23.0-36.5 [facility] Comment on above: Result Comment: IV Heparin Therapy Range: 66.0-92.0 sec Performed By: #### B MP, CDP, PT, PTT ####[facility] [address] [place], [place] [phone] Director: Kan Craig MD Basic Metabolic Profon 07-10 Anion gap [Moles/Vol] 13 mmol/L Normal 9-16 [facility] Comment on above: Performed By: #### B MP, CDP, PT, PTT ####[facility] [address] [place], [place] [phone])[phone] Director: Kan Craig MD Calcium [Mass/Vol] 9.4 mg/dL Normal 8.6-10.4 [facility] Comment on above: Performed By: #### B MP, CDP, PT, PTT ####[facility] [address] [place], [place] [phone] Director: Kan Craig MD Chloride [Moles/Vol] 102 mmol/L Normal 98-107 [facility] Comment on above: Performed By: #### B MP, CDP, PT, PTT ####[facility] [address] [place], [place] [phone] Director: Kan Craig MD CO2 [Moles/Vol] 24 mmol/L Normal 20-31 [facility] Comment on above: Performed By: #### B MP, CDP, PT, PTT ####[facility] [address] [place], [place] [phone] Director: Kan Craig MD Creatinine [Mass/Vol] 1.0 mg/dL Normal 0.70-1.20 [facility] Comment on above: Performed By: #### B MP, CDP, PT, PTT ####[facility] [address] [place], [place] [address])[phone] Director: Kan Craig MD GFR/1.73 sq M.predicted among non-blacks MDRD (S/P/Bld) [Vol rate/Area] mL/min/{1.73_m2} Normal >60 [facility] Comment on above: Result Comment: These results [...] By: #### B MP, CDP, PT, PTT ####[facility] [address] [place] [address])[phone] Director: Kan Craig MD Glucose [Mass/Vol] 114 mg/dL High 74-99 [facility] Comment on above: Performed By: #### B MP, CDP, PT, PTT ####[facility] [address] [place] [address])[phone] Director: Kan Craig MD Potassium [Moles/Vol] 4.2 mmol/L Normal 3.7-5.3 [facility] Comment on above: Performed By: #### B MP, CDP, PT, PTT ####[facility] [address] [place] [address])[phone] Director: Kan Craig MD Sodium [Moles/Vol] 139 mmol/L Normal 136-145 [facility] Comment on above: Performed By: #### B MP, CDP, PT, PTT ####[facility] [address] [place] [address])[phone] Director: Kan Craig MD Urea nitrogen [Mass/Vol] 21 mg/dL Normal 8-23 [facility] Comment on above: Performed By: #### B MP, CDP, PT, PTT ####[facility] [address] [place], [place] [address])[phone] Director: Kan Craig MD CBC with Diffon 07-10-2023 Abs. Basophil 0.11 k/uL Normal 0.00-0.20 [facility] Comment on above: Performed By: #### B MP, CDP, PT, PTT ####[facility] [address] [place], [place] [address])[phone] Director: Kan Craig MD Abs.Imm.Granulocyte 0.05 k/uL Normal 0.00-0.30 [facility] Comment on above: Performed By: #### B MP, CDP, PT, PTT ####[address] [address])[phone] Director: Kan Craig MD Abs.Neutrophil (Seg) 3.72 k/uL Normal 1.50-8.10 [facility] Comment on above: Performed By: #### B MP, CDP, PT, PTT ####[address] [address])[phone] Director: Kan Craig MD Basophils/100 WBC (Bld) 2 % Normal 0-2 [facility] Comment on above: Performed By: #### B MP, CDP, PT, PTT ####[address] [address])[phone] Director: Kan Craig MD Eosinophils (Bld) [#/Vol] 0.16 10*3/uL Normal 0.00-0.44 [facility] Comment on above: Performed By: #### B MP, CDP, PT, PTT ####[place], [place] [address])[phone] Director: Kan Craig MD Eosinophils/100 WBC (Bld) 3 % Normal 1-4 [facility] Comment on above: Performed By: #### B MP, CDP, PT, PTT ####[facility] [address] [place] [address]([facility])[phone] Director: Kan Craig MD Erythrocyte distribution width (RBC) [Ratio] 12.1 % Normal 11.8-14.4 [facility] Comment on above: Performed By: #### B MP, CDP, PT, PTT ####[facility] [address] [place], [place] [phone] Director: Kan Craig MD Hematocrit (Bld) [Volume fraction] 49.3 % Normal 40.7-50.3 [facility] Comment on above: Performed By: #### B MP, CDP, PT, PTT ####[facility] [address] [place], [place] [address])[phone] Director: Kan Craig MD Hemoglobin (Bld) [Mass/Vol] 16.3 g/dL Normal 13.0-17.0 [facility] Comment on above: Performed By: #### B MP, CDP, PT, PTT ####[facility] [address] [place] [address] [phone] Director: Kan Craig MD Immature granulocytes/100 WBC (Bld) 1 % High 0 [facility] Comment on above: Performed By: #### B MP, CDP, PT, PTT ####[facility] [address] [place] [address] [phone] Director: Kan Craig MD Lymphocytes (Bld) [#/Vol] 1.83 10*3/uL Normal 1.10-3.70 [facility] Comment on above: Performed By: #### B MP, CDP, PT, PTT ####[facility] [address] [place] [address] [phone] Director: Kan Craig MD Lymphocytes/100 WBC (Bld) 29 % Normal 24-43 [facility] Comment on above: Performed By: #### B MP, CDP, PT, PTT ####[facility] [address] [place], [place] [phone] Director: Kan Craig MD MCH (RBC) [Entitic mass] 31.7 pg Normal 25.2-33.5 [facility] Comment on above: Performed By: #### B MP, CDP, PT, PTT ####[facility] [address] [place], [place] [id number])[phone] Director: Kan Craig MD MCHC (RBC) [Mass/Vol] 33.1 g/dL Normal 28.4-34.8 [facility] Comment on above: Performed By: #### B MP, CDP, PT, PTT ####[facility] [address] [place] [address])[phone] Director: Kan Craig MD MCV (RBC) [Entitic vol] 95.7 fL Normal 82.6-102.9 [facility] Comment on above: Performed By: #### B MP, CDP, PT, PTT ####[facility] [address] [place] [address])[phone] Director: Kan Craig MD Monocytes (Bld) [#/Vol] 0.41 10*3/uL Normal 0.10-1.20 [facility] Comment on above: Performed By: #### B MP, CDP, PT, PTT ####[facility] [address] [place] [address])[phone] Director: Kan Craig MD Monocytes/100 WBC (Bld) 7 % Normal 3-12 [facility] Comment on above: Performed By: #### B MP, CDP, PT, PTT ####[facility] [address] [place] [address])[phone] Director: Kan Craig MD Neutrophil (Seg) 58 % Normal 36-65 [facility] Comment on above: Performed By: #### B MP, CDP, PT, PTT ####[facility] [address] [place], [place] [address])[phone] Director: Kan Craig MD NRBC Automated 0.0 per 100 WBC Normal 0.0 [facility] Comment on above: Performed By: #### B MP, CDP, PT, PTT ####[facility] [address] [place] [address] Lab Director: Kan Craig MD Platelet mean volume (Bld) [Entitic vol] 10.5 fL Normal 8.1-13.5 [facility] Comment on above: Performed By: #### B MP, CDP, PT, PTT ####[facility] [address] [place], [place] [phone] Director: Kan Craig MD Platelets (Bld) [#/Vol] 225 10*3/uL Normal 138-453 [facility] Comment on above: Performed By: #### B MP, CDP, PT, PTT ####[address] [phone] Director: Kan Craig MD RBC (Bld) [#/Vol] 5.15 10*6/uL Normal 4.21-5.77 [facility] Comment on above: Performed By: #### B MP, CDP, PT, PTT ####[address] [phone] Director: Kan Craig MD WBC (Bld) [#/Vol] 6.3 10*3/uL Normal 3.5-11.3 [facility] Comment on above: Performed By: #### B MP, CDP, PT, PTT ####[address] [phone] Director: Kan Craig MD PTon 07-10-2023 INR Coag (PPP) [Relative time] 1.0 {INR} Normal [facility] Comment on above: Result Comment: Therapeutic Range: Moderate Anticoagulant Intensity: INR = 2.0-3.0 High Anticoagulant Intensity: INR = 2.5-3.5 Performed By: #### B MP, CDP, PT, PTT ####[facility] [address] [place], [place] [phone] Director: Kan Craig MD PT Coag (PPP) [Time] 12.7 s Normal 11.7-14.9 [facility] Comment on above: Performed By: #### B MP, CDP, PT, PTT ####[address] [address] Lab Director: Kan Craig MD Type + Screenon 07-10-2023 Type + Screen Sample Expiration 07/31/2023,2359 Arm Band Number BE [id number] ABO/Rh(D) B POSITIVE Antibody Screen NEGATIVE Normal [facility] Comment on above: Performed By: #### T YS #### [address] [address] Glass Presser: Kan Craig MD Performed By: #### T YS ####[address] [address] Lab Director: Kan Craig MD Urinalysis, Routineon 2023 Bilirubin, SemiQt,Ur Negative Normal NEG [facility] Comment on above: Performed By: #### U A #### [address] [address] Glass Presser: Kan Craig MD Blood, Urine Negative Normal NEG [facility] Comment on above: Performed By: #### U A #### [address] [address] Glass Presser: Kan Craig MD Clarity (U) Clear Normal CLEAR [facility] Comment on above: Performed By: #### U A #### [address] [address] Glass Presser: Kan Craig MD Color (U) Yellow Normal YEL [facility] Comment on above: Performed By: #### U A #### [address] [address] Glass Presser: Kan Craig MD Comment Microscopic exam not performed based on chemical results unless requested in Normal [facility] Comment on above: Result Comment: orig inal order. Performed By: #### U A #### [address] [address] Glass Presser: Kan Craig MD Glucose Ql (U) 3+ mg/dL Abnormal NEG [facility] Comment on above: Performed By: #### U A #### [address] [address] Glass Presser: Kan Craig MD Ketones Ql (U) Negative Normal NEG [facility] Comment on above: Performed By: #### U A #### [address] [address] Glass Presser: Kan Craig MD Leukocyte esterase Test strip Ql (U) Negative Normal NEG [facility] Comment on above: Performed By: #### U A #### [address] [address] Glass Presser: Kan Craig MD Nitrite,Ur Negative Normal NEG [facility] Comment on above: Performed By: #### U A #### [address] [address] Glass Presser: Kan Craig MD PH,Ur 5.0 Normal 5.0-8.0 [facility] Comment on above: Performed By: #### U A #### [address] [address] Glass Presser: Kan Craig MD Protein Ql (U) Negative Normal NEG [facility] Comment on above: Performed By: #### U A #### [address] [address] Glass Presser: Kan Craig MD Spec. [place],Ur 1.029 Normal 1.005-1.030 [facility] Comment on above: Performed By: #### U A #### [employer] [address] [place] [address] Glass Presser: Kan Craig MD Urobilinogen,Ur Normal Normal 0.0-1.0 [facility] Comment on above: Performed By: #### U A #### [employer] [address] [place] [address] Glass Presser: Kan Craig MD CT CERVICAL SPINE WO [...] Johan Bowers MD 06/07/23 Final result Normal [facility] Basic Metabolic Profon 05-19 Anion gap [Moles/Vol] 13 mmol/L Normal 9-17 [facility] Comment on above: Performed By: #### C BC, BMP #### [facility] [address] [place] [address] Glass Presser: Julio Martínez MD #### GLYHGB #### [address] [address] Glass Presser: Kan Craig MD BUN/CRE Ratio 27 High 9-20 [facility] Comment on above: Performed By: #### C BC, BMP #### [facility] [address] [place] [address] Glass Presser: Julio Martínez MD #### GLYHGB #### [address] [address] Glass Presser: Kan Craig MD Calcium [Mass/Vol] 9.7 mg/dL Normal 8.6-10.4 [facility] Comment on above: Performed By: #### Nancy ROBLES, BMP #### [facility] [address] [place] [address] Glass Presser: Julio Martínez MD #### GLYHGB #### [address] [address] Glass Presser: Kan Craig MD Chloride [Moles/Vol] 103 mmol/L Normal 98-107 [facility] Comment on above: Performed By: #### C BC, BMP #### [facility] [address] [place] [address] Glass Presser: Julio Martínez MD #### GLYHGB #### [address] [address] Glass Presser: Kan Craig MD CO2 [Moles/Vol] 24 mmol/L Normal 20-31 [facility] Comment on above: Performed By: #### C BC, BMP #### [facility] [address] [place] [address] Glass Presser: Julio Martínez MD #### GLYHGB #### [address] [address] Glass Presser: Kan Craig MD Creatinine [Mass/Vol] 1.0 mg/dL Normal 0.7-1.2 [facility] Comment on above: Performed By: #### C BC, BMP #### [facility] [address] [place] [address] Glass Presser: Julio Martínez MD #### GLYHGB #### [address] [address] Glass Presser: Kan Craig MD GFR/1.73 sq M.predicted among non-blacks MDRD (S/P/Bld) [Vol rate/Area] mL/min/{1.73_m2} Normal >60 [facility] Comment on above: Result Comment: These [...] Performed By: #### C BC, BMP #### [facility] [address] [place] [address] Glass Presser: Julio Martínez MD #### GLYHGB #### [address] [address] Glass Presser: Kan Craig MD Glucose [Mass/Vol] 169 mg/dL High 70-99 [facility] Comment on above: Performed By: #### C BC, BMP #### [facility] [address] [place] [address] Glass Presser: Julio Martínez MD #### GLYHGB #### [address] [address] Glass Presser: Kan Craig MD Potassium [Moles/Vol] 4.1 mmol/L Normal 3.7-5.3 [facility] Comment on above: Performed By: #### C BC, BMP #### [facility] [address] [place] [address] Glass Presser: Julio Martínez MD #### GLYHGB #### [address] [address] Glass Presser: Kan Craig MD Sodium [Moles/Vol] 140 mmol/L Normal 135-144 [facility] Comment on above: Performed By: #### C BC, BMP #### [facility] [address] [place] [address] Glass Presser: Julio Martínez MD #### GLYHGB #### [address] [address] Glass Presser: Kan Craig MD Urea nitrogen [Mass/Vol] 27 mg/dL High 8-23 [facility] Comment on above: Performed By: #### C BC, BMP #### [facility] [address] [place] [address] Glass Presser: Julio Martínez MD #### GLYHGB #### [address] [address] Glass Presser: Kan Craig MD CBCon 05-19-2023 Erythrocyte distribution width (RBC) [Ratio] 13.6 % Normal 11.8-14.4 [facility] Comment on above: Performed By: #### C BC, BMP #### [facility] [address] [place] [address] Glass Presser: Julio Martínez MD #### GLYHGB #### [address] [address] Glass Presser: Kan Craig MD Hematocrit (Bld) [Volume fraction] 46.6 % Normal 40.7-50.3 [facility] Comment on above: Performed By: #### C BC, BMP #### [facility] [address] [place] [address] Glass Presser: Julio Martínez MD #### GLYHGB #### [address] [address] Glass Presser: Kan Craig MD Hemoglobin (Bld) [Mass/Vol] 15.6 g/dL Normal 13.0-17.0 [facility] Comment on above: Performed By: #### C TRAVIS, BMP #### [facility] [address] [place] [address] Glass [employer]er: Julio Martínez MD #### GLYHGB #### [address] [address] Glass Presser: Kan Craig MD MCH (RBC) [Entitic mass] 31.9 pg Normal 25.2-33.5 [facility] Comment on above: Performed By: #### C BC, BMP #### [facility] [address] [place] [address] Glass [employer]er: Julio Martínez MD #### GLYHGB #### [address] [address] Glass Presser: Kan Craig MD MCHC (RBC) [Mass/Vol] 33.5 g/dL Normal 28.4-34.8 [facility] Comment on above: Performed By: #### C BC, BMP #### [facility] [address] [place] [address] Glass Presser: Julio Martínez MD #### GLYHGB #### [address] [address] Glass Presser: Kan Craig MD MCV (RBC) [Entitic vol] 95.3 fL Normal 82.6-102.9 [facility] Comment on above: Performed By: #### Nancy ROBLES, BMP #### [facility] [address] [place] [address] Glass Presser: Julio Martínez MD #### GLYHGB #### [address] [address] Glass Presser: Kan Craig MD NRBC Automated 0.0 per 100 WBC Normal 0.0 [facility] Comment on above: Performed By: #### Nancy ROBLES, BMP #### [facility] [address] [place] [address] Glass Presser: Julio Martínez MD #### GLYHGB #### [address] [address] Glass Presser: Kan Craig MD Platelet mean volume (Bld) [Entitic vol] 10.7 fL Normal 8.1-13.5 [facility] Comment on above: Performed By: #### C TRAVIS, BMP #### [facility] [address] [place] [address] Glass [employer]er: Julio Martínez MD #### GLYHGB #### [address] [address] Glass Presser: Kan Craig MD Platelets (Bld) [#/Vol] 255 10*3/uL Normal 138-453 [facility] Comment on above: Performed By: #### C BC, BMP #### [facility] [address] [place] [address] Glass Presser: Julio Martínez MD #### GLYHGB #### [address] [address] Glass Presser: Kan Craig MD RBC (Bld) [#/Vol] 4.89 10*6/uL Normal 4.21-5.77 [facility] Comment on above: Performed By: #### C BC, BMP #### [facility] [address] [place] [address] Glass Presser: Julio Martínez MD #### GLYHGB #### [address] [address] Glass Presser: Kan Craig MD WBC (Bld) [#/Vol] 6.3 10*3/uL Normal 3.5-11.3 [facility] Comment on above: Performed By: #### C TRAVIS, BMP #### [facility] [address] [place] [address] Glass Presser: Julio Martínez MD #### GLYHGB #### [address] [address] Glass Presser: Kan Craig MD Hemoglobin A1Con 05-19-2023 Glucose [Mass/Vol] 151 mg/dL Normal [facility] Comment on above: Result Comment: The ADA and AACC recommend providing the estimated average glucose result to permit better patient understanding of their HBA1c result. Performed By: #### C TRAVIS, BMP #### [facility] [address] [place] [address] [place] [phone] Glass Presser: Julio Martínez MD #### GLYHGB #### [facility] [employer] [address] [place], [place] [phone] Glass Presser: Kan Craig MD HbA1c (Bld) [Mass fraction] 6.9 % High 4.0-6.0 [facility] Comment on above: Performed By: #### C BC, BMP #### [facility] [address] [place], [place] [phone] Glass Presser: Julio Martínez MD #### GLYHGB #### [facility] [employer] [address] [place], [place] [phone] Glass Presser: Kan Craig MD MRI CERVICAL SPINE WO [...] Tonja Malone MD 05/17/23 Final result Normal [facility] POINT OF CARE GLUCOSEon 10-10 Glucose [Mass/Vol] 159 mg/dL Critically high 74-106 [facility] Comment on above: Performed By: #### P OCGLUC #### [facility] [address] [address] [address] Cristal Goodwin POINT OF CARE GLUCOSEon 09-10 Glucose [Mass/Vol] 182 mg/dL Critically high 74-106 [facility] Comment on above: Performed By: #### P OCGLUC #### [facility] [address] [address] [address] Cristal Goodwin XR CSPINE 2_3 VIEWSon [...] by: WILL SOARES Date: 2022-09-15 10:31 Normal [facility] XR TSPINE 2 VIEWSon 09-16-19 23 [...] by: WILL SOARES Date: 2022-09-15 10:29 Normal [facility] POINT OF CARE GLUCOSEon 08-11 Glucose [Mass/Vol] 120 mg/dL Critically high 74-106 [facility] Comment on above: Performed By: #### P OCGLUC #### [facility] [address] [place] [address] Dr. Cristal Goodwin XR LSPINE MIN 4 VIEWSon XR LSPINE MIN 4 VIEWS EXAMINATION: XR [...] by: GUILLERMO AMADOR Date: 2022-08-10 07:23 Normal [facility] CT LUNG CANCER SCREENINGon 0 08-03-2022 [...] by: WILL SOARES Date: 2022-08-03 15:51 Normal [facility] BASIC METABOLIC PANELon 07-2 BUN/CREATININE RATIO NOT APPLICABLE Normal - [facility] Comment on above: Order Comment: FASTI NG:YES FASTING: YES Performed By: #### 4 96, [id number] #### [facility] [address] [address] Banquet Bartender: Gelacio Alonso MD Calcium [Mass/Vol] 9.1 mg/dL Normal 8.6-10.3 [facility] Comment on above: Order Comment: FASTI NG:YES FASTING: YES Performed By: #### 4 96, 12831 #### [facility] [address] [address] Banquet Bartender: Gelacio Alonso MD Chloride [Moles/Vol] 106 mmol/L Normal 98-110 [facility] Comment on above: Order Comment: FASTI NG:YES FASTING: YES Performed By: #### 4 96, 74684 #### [facility] [address], [address] [place] [address] Banquet Bartender: Gelacio Alonso MD CO2 [Moles/Vol] 26 mmol/L Normal 20-32 [facility] Comment on above: Order Comment: FASTI NG:YES FASTING: YES Performed By: #### 4 96, 51585 #### [facility] [address], [address] [place] [address] Banquet Bartender: Gelacio Alonso MD Creatinine [Mass/Vol] 0.93 mg/dL Normal 0.70-1.35 [facility] [employer] Comment on above: Order Comment: FASTI NG:YES FASTING: YES Performed By: #### 4 96, 45088 #### [facility] [address], [address] [place] [address] Banquet Bartender: Gelacio Alonso MD GFR/1.73 sq M.predicted among non-blacks MDRD (S/P/Bld) [Vol rate/Area] 93 mL/min/{1.73_m2} Normal > OR = 60 [facility] Comment on above: Order Comment: FASTI NG:YES FASTING: YES Result Comment: The eGFR is based on the CKD-EPI 2020 equation. To calculate the new eGFR from a previous Creatinine or Cystatin C result, go to https://www.kidney.org/professionals/ kdoqi/gfr%5Fcalculator Performed By: #### 4 96, 55890 #### [facility] [address], [address] [place] [address] Banquet Bartender: Gelacio Alonso MD Glucose [Mass/Vol] 136 mg/dL High 65-99 [facility] Comment on above: Order Comment: FASTI NG:YES FASTING: YES Result Comment: Fasting reference interval For someone without known diabetes, a glucose value >125 mg/dL indicates that they may have diabetes and this should be confirmed with a follow-up test. Performed By: #### 4 96, 57111 #### [facility] [address], [address] [place] [address] Banquet Bartender: Gelacio Alonso MD Potassium [Moles/Vol] 4.3 mmol/L Normal 3.5-5.3 [facility] [employer] Comment on above: Order Comment: FASTI NG:YES FASTING: YES Performed By: #### 4 96, 49028 #### [facility] [address], [address] [place] [address] Banquet Bartender: Gelacio Alonso MD Sodium [Moles/Vol] 140 mmol/L Normal 135-146 [facility] Comment on above: Order Comment: FASTI NG:YES FASTING: YES Performed By: #### 4 96, 26069 #### [facility] [address], [address] [place] [address] Banquet Bartender: Gelacio Alonso MD Urea nitrogen [Mass/Vol] 16 mg/dL Normal 7-25 [facility] Comment on above: Order Comment: FASTI NG:YES FASTING: YES Performed By: #### 4 96, 16355 #### [facility] [address] [address] Banquet Bartender: Gelacio Alonso MD HEMOGLOBIN A1con 12-30-2021 HEMOGLOBIN [...] for children. Performed By: #### 4 96, 86867 #### [facility] [address], [address] [place] [address] Banquet Bartender: Gelacio Alonso MD BASIC METABOLIC PANELon 05-12 BUN/CREATININE RATIO NOT APPLICABLE Normal 6-22 [facility] Comment on above: Order Comment: FASTI NG:YES FASTING: YES Performed By: #### 1 0165 #### [facility] [address], [address] [place] [address] Banquet Bartender: Gelacio Alonso MD Calcium [Mass/Vol] 9.3 mg/dL Normal 8.6-10.3 [facility] Comment on above: Order Comment: FASTI NG:YES FASTING: YES Performed By: #### 1 0165 #### [facility] [address], [address] [place] [address] Banquet Bartender: Gelacio Alonso MD Chloride [Moles/Vol] 109 mmol/L Normal 98-110 [facility] Comment on above: Order Comment: FASTI NG:YES FASTING: YES Performed By: #### 1 0165 #### [facility] [address], [address] [place] [address] Banquet Bartender: Gelacio Alonso MD CO2 [Moles/Vol] 26 mmol/L Normal 20-32 [facility] Comment on above: Order Comment: FASTI NG:YES FASTING: YES Performed By: #### 1 0165 #### [facility] [address] [place] [address] Banquet Bartender: Gelacio Alonso MD Creatinine [Mass/Vol] 0.93 mg/dL Normal 0.70-1.[address] [facility] [address] [facility] Comment on above: Order Comment: FASTI NG:YES FASTING: YES Result Comment: For patients >49 years of age, the reference limit for Creatinine is approximately 13% higher for people identified as -Iraqi. Performed By: #### 1 0165 #### [facility] [address] [address] Banquet Bartender: Gelacio Alonso MD eGFR NON-AFR. GABONESE 88 mL/min/1.73m2 Normal > OR = 60 [facility] Comment on above: Order Comment: FASTI NG:YES FASTING: YES Performed By: #### 1 0165 #### [facility] [address], [address] [place] [address] Banquet Bartender: Gelacio Alonso MD GFR/1.73 sq M.predicted among blacks MDRD (S/P/Bld) [Vol rate/Area] 102 mL/min/{1.73_m2} Normal > OR = 60 [facility] Comment on above: Order Comment: FASTI NG:YES FASTING: YES Performed By: #### 1 0165 #### [facility] [address] [address] Banquet Bartender: Gelacio Alonso MD Glucose [Mass/Vol] 122 mg/dL High 65-99 [facility] Comment on above: Order Comment: FASTI NG:YES FASTING: YES Result Comment: Fasting reference interval For someone without known diabetes, a glucose value between 100 and 125 mg/dL is consistent with prediabetes and should be confirmed with a follow-up test. Performed By: #### 1 0165 #### [facility] [address], [address] [place] [address] Banquet Bartender: Gelacio Alonso MD Potassium [Moles/Vol] 4.5 mmol/L Normal 3.5-5.[address] [facility] Comment on above: Order Comment: FASTI NG:YES FASTING: YES Performed By: #### 1 0165 #### [facility] [address] [address] Banquet Bartender: Gelacio Alonso MD Sodium [Moles/Vol] 141 mmol/L Normal 135-146 [facility] Comment on above: Order Comment: FASTI NG:YES FASTING: YES Performed By: #### 1 0165 #### [facility] [address] [address] Banquet Bartender: Gelacio Alonso MD Urea nitrogen [Mass/Vol] 24 mg/dL Normal 7-25 [facility] Comment on above: Order Comment: FASTI NG:YES FASTING: YES Performed By: #### 1 0165 #### [facility] [address] [place] [address] Banquet Bartender: Gelacio Alonso MD [facility] 02-04-2021 Albumin [Mass/Vol] 4.3 g/dL Normal 3.6-5.1 [facility] Comment on above: Performed By: #### 1 8291, 9896, 5399 #### [facility] [address], [address] [place] [address] Banquet Bartender: Gelacio Alonso MD Albumin/Globulin [Mass ratio] 1.7 {ratio} Normal 1.0-2.5 [facility] Comment on above: Performed By: #### 1 6531, 7599, 5363 #### [facility] of [address], [address] [place] [address] Banquet Bartender: Gelacio Alonso MD ALP [Catalytic activity/Vol] 54 U/L Normal 35-144 [facility] Comment on above: Performed By: #### 1 0231, 0, 5363 #### [facility] of [address], [address] [place] [address] Banquet Bartender: Gelacio Alonso MD ALT [Catalytic activity/Vol] 19 U/L Normal 9-46 [facility] Comment on above: Performed By: #### 1 0231, 7599, 5363 #### [facility] of [address], [address] [place] [address] Banquet Bartender: Gelacio Alonso MD AST [Catalytic activity/Vol] 19 U/L Normal 10-35 [facility] Comment on above: Performed By: #### 1 023, 7599, 5363 #### [facility] [address], [address] [place] [address] Banquet Bartender: Gelacio Alonso MD Bilirubin [Mass/Vol] 0.6 mg/dL Normal 0.2-1.2 [facility] Comment on above: Performed By: #### 1 0231, 7599, 5363 #### [facility] [address], [address] [place] [address] Banquet Bartender: Gelacio Alonso MD BUN/CREATININE RATIO NOT APPLICABLE Normal 6-22 [facility] Comment on above: Performed By: #### 1 0231, 7599, 5363 #### [facility] [address], [address] [place] [address] Banquet Bartender: Gelacio Alonso MD Calcium [Mass/Vol] 9.2 mg/dL Normal 8.6-10.3 [facility] Comment on above: Performed By: #### 1 0231, 7599, 5363 #### [facility] [address], [address] [place] [address] Banquet Bartender: Gelacio Alonso MD Chloride [Moles/Vol] 106 mmol/L Normal 98-110 [facility] Comment on above: Performed By: #### 1 230, 7599, 5363 #### [facility] [address] [address] Banquet Bartender: Gelacio Alonso MD CO2 [Moles/Vol] 28 mmol/L Normal 20-32 [facility] Comment on above: Performed By: #### 1 230, 7599, 5363 #### [facility] [address] [address] Banquet Bartender: Gelacio Alonso MD Creatinine [Mass/Vol] 0.93 mg/dL Normal 0.70-1.[address] [facility] Comment on above: Result Comment: For patients >49 years of age, the reference limit for Creatinine is approximately 13% higher for people identified as -Iraqi. Performed By: #### 1 230, 7599, 5363 #### [facility] [address] [address] Banquet Bartender: Gelacio Alonso MD eGFR NON-AFR. GABONESE 88 mL/min/1.73m2 Normal > OR = 60 [facility] Comment on above: Performed By: #### 1 230, 7599, 5363 #### [facility] [address] [address] Banquet Bartender: Gelacio Alonso MD GFR/1.73 sq M.predicted among blacks MDRD (S/P/Bld) [Vol rate/Area] 102 mL/min/{1.73_m2} Normal > OR = 60 [facility] Comment on above: Performed By: #### 1 230, 7599, 5363 #### [facility] [address] [address] Banquet Bartender: Gelacio Alonso MD Globulin (S) [Mass/Vol] 2.5 g/dL Normal 1.9-3.7 [facility] Comment on above: Performed By: #### 1 230, 7599, 5363 #### [facility] [address], [address] [place] [address] Banquet Bartender: Gelacio Alonso MD Glucose [Mass/Vol] 83 mg/dL Normal 65-99 [facility] Comment on above: Result Comment: Fasting reference interval Performed By: #### 1 0231, 7600, 5363 #### [facility] [address], [address] [place] [address] Banquet Bartender: Gelacio Alonso MD Potassium [Moles/Vol] 4.5 mmol/L Normal 3.5-5.[address] [facility] [address] [facility] Comment on above: Performed By: #### 1 0231, 7599, 5363 #### [facility] [address], [address] [place] [address] Banquet Bartender: Gelacio Alonso MD Protein [Mass/Vol] 6.8 g/dL Normal 6.1-8.1 [facility] Comment on above: Performed By: #### 1 023, 7599, 5363 #### [facility] [address], [address] [place] [address] Banquet Bartender: Gelacio Alonso MD Sodium [Moles/Vol] 141 mmol/L Normal 135-146 [facility] Comment on above: Performed By: #### 1 023, 7599, 5363 #### [facility] [address], [address] [place] [address] Banquet Bartender: Gelacio Alonso MD Urea nitrogen [Mass/Vol] 20 mg/dL Normal 7-25 [facility] Comment on above: Performed By: #### 1 023, 7599, 5363 #### [facility] of [address], [address] [place] [address] Banquet Bartender: Gelacio Alonso MD LIPID PANEL, [facility] [place] 01-11 Cholesterol [Mass/Vol] 138 mg/dL Normal <200 [facility] Comment on above: Performed By: #### 1 023, 7599, 5363 #### [facility] of [address], [address] [place] [address] Banquet Bartender: Gelacio Alonso MD Cholesterol in HDL [Mass/Vol] 49 mg/dL Normal > OR = 40 [facility] Comment on above: Performed By: #### 1 230, 7599, 5363 #### [facility] [address] [address] Banquet Bartender: Gelacio Alonso MD Cholesterol in LDL [Mass/Vol] [...] equation in the estimation of LDL-C. Paul CHERRY et al. JULEE. 2013;310(19): 4623-9513 (http://education.Sensics.myMedScore/faq/EQC947) Performed By: #### 1 230, 7599, 5363 #### [facility] [address], [address] [place] [address] Banquet Bartender: Gelacio Alonso MD Cholesterol.total/Chol esterol in HDL [Mass ratio] 2.8 {ratio} Normal <5.0 [facility] Comment on above: Performed By: #### 1 230, 7599, 5363 #### [facility] [address] [address] Banquet Bartender: Gelacio Alonso MD NON HDL CHOLESTEROL 89 mg/dL (calc) Normal <130 [facility] Comment on above: Result Comment: For patients with diabetes plus 1 major ASCVD risk factor, treating to a non-HDL-C goal of <100 mg/dL (LDL-C of <70 mg/dL) is considered a therapeutic option. Performed By: #### 1 230, 7599, 5363 #### [facility] [address] [address] Banquet Bartender: Gelacio Alonso MD Triglyceride [Mass/Vol] 79 mg/dL Normal <150 [facility] Comment on above: Performed By: #### 1 0231, 7600, 5363 #### [facility] [address] [facility], [address] [place] [address] Banquet Bartender: Gelacio Alonso MD PSA, TOTALon 02-04-2021 PSA, TOTAL 0.3 ng/mL Normal < OR = 4.0 [facility] Comment on above: Result Comment: The total PSA value from this assay system is standardized against the WHO standard. The test result will be approximately 20% lower when compared to the equimolar-standardized total PSA (Laurie Jaz). Comparison of serial PSA results should be interpreted with this fact in mind. This test was performed using the Siemens chemiluminescent method. Values obtained from different assay methods cannot be used interchangeably. PSA levels, regardless of value, should not be interpreted as absolute evidence of the presence or absence of disease. Performed By: #### 1 0231, 7600, 5363 #### [facility] [address], [address] [place] [id number] Banquet Bartender: Gelacio Alonso MD Vital Signs Date Time Vital Sign Value Performing Clinician Faci lity 08-11-2023 10:59-0500 Body height 170.2 cm Day Obando APRN-LEAD SOFTWARE TEST ENGINEER Work Phone: [facility] 08-11-2023 10:59-0500 Body mass index (BMI) [Ratio] 34.22 kg/m2 Day Obando CONTAINER FINISHING INSPECTOR-LEAD SOFTWARE TEST ENGINEER Work Phone: [facility] 08-11-2023 10:59-0500 Body temperature 97.5 [degF] Day Obando CONTAINER FINISHING INSPECTOR-LEAD SOFTWARE TEST ENGINEER Work Phone: [facility] 08-11-2023 10:59-0500 Body weight 99.11 kg Day Obando CONTAINER FINISHING INSPECTOR-LEAD SOFTWARE TEST ENGINEER Work Phone: [facility] 08-11-2023 10:59-0500 Diastolic blood pressure 78 mm[Hg] Day Obando CONTAINER FINISHING INSPECTOR-LEAD SOFTWARE TEST ENGINEER Work Phone: [facility] [employer] [facility] 08-11-2023 10:59-0500 Heart rate 84 /min Day FARIAS Work Phone: [facility] [employer] [facility] 08-11-2023 10:59-0500 SaO2% (BldA) [Mass fraction] 95 % Day FARIAS Work Phone: [facility] [employer] [facility] 08-11-2023 10:59-0500 Systolic blood pressure 112 mm[Hg] Day FARIAS Work Phone: [facility] [employer] [facility] 07-31-2023 12:42-0500 SaO2% (BldA) [Mass fraction] 92 % Mike Ahammad DO Work Phone: [employer] 07-31-2023 11:40-0500 Body temperature 98.6 [degF] Mike Ahammad DO Work Phone: [employer] 07-31-2023 11:40-0500 Diastolic blood pressure 64 mm[Hg] Mike Ahammad DO Work Phone: [facility] 07-31-2023 11:40-0500 Heart rate 115 /min Mike Ahammad DO Work Phone: [facility] 07-31-2023 11:40-0500 Respiratory rate 11 /min Mike Ahammad DO Work Phone: [employer] 07-31-2023 11:40-0500 Systolic blood pressure 102 mm[Hg] Mike Ahammad DO Work Phone: [facility] 07-28-2023 12:39-0500 Body temperature 35.0 Mike Ahammad DO Work Phone: [employer] 07-28-2023 11:00-0500 Body temperature 37.0 Mike Ahammad DO Work Phone: [facility] 07-28-2023 10:16-0500 Body temperature 37.0 Mike Ahammad DO Work Phone: [facility] 07-28-2023 06:21-0500 Body height 170.2 cm Mike [facility] DO Work Phone: [facility] 07-28-2023 06:21-0500 Body mass index (BMI) [Ratio] 33.52 kg/m2 Mike [facility] DO Work Phone: [facility] 07-28-2023 06:21-0500 Body weight 97.07 kg Mike Miguelangelholzer health systemd DO Work Phone: [facility] Encounters Encounter Date Encounter Type Care Provider Facility Start: 01-08-2024 End: 01-08-2024 ambulatory Macey Monterroso MD Facility:[facility] Start: 12-28-2023 End: 12-28-2023 ambulatory [facility] Start: 12-01-2023 End: 12-01-2023 ambulatory [facility] Start: 11-27-2023 End: 11-29-2023 ambulatory [facility] Start: 11-27-2023 End: 11-29-2023 Subsequent hospital visit by physician Nikki [facility] Comment on above: Lumbar disc disease with radiculopathy Start: 11-23-2023 End: 11-25-2023 Subsequent hospital visit by physician Keke Mckeon Dr Room 4 [facility] Comment on above: 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) Start: 11-23-2023 End: 11-25-2023 ambulatory [facility] Start: 11-13-2023 End: 12-11-2023 ambulatory [facility] Start: 11-01-2023 End: 11-01-2023 ambulatory [facility] Start: 10-17-2023 End: 11-11-2023 ambulatory [facility] Start: 10-12-2023 End: 11-11-2023 ambulatory [facility] Start: 10-05-2023 End: 10-11-2023 ambulatory [facility] Start: 09-26-2023 End: 10-11-2023 [facility] Start: 09-22-2023 End: 09-24-2023 ambulatory BETHANY Gay [facility] Start: 09-11-2023 End: 10-11-2023 ambulatory [facility] Start: 08-25-2023 Refill Day Obando CONTAINER FINISHING INSPECTOR-LEAD SOFTWARE TEST ENGINEER Work Phone: [facility] Start: 08-22-2023 Orders Only Day Obando CONTAINER FINISHING INSPECTOR-LEAD SOFTWARE TEST ENGINEER Work Phone: [facility] Start: 08-14-2023 End: 09-11-2023 [facility] Start: 08-11-2023 End: 08-11-2023 Transitional care manage srvc 14 day discharge Day Shaw Obando CONTAINER FINISHING INSPECTOR-LEAD SOFTWARE TEST ENGINEER Work Phone: [facility] Comment on above: Type 2 diabetes ricardo itus without complication, without long- term current use of insulin ([facility]) (Primary Dx); Essential hypertension Start: 08-11-2023 End: 08-11-2023 [facility] Start: 08-07-2023 End: 08-11-2023 ambulatory [facility] Start: 07-28-2023 End: 07-31-2023 Evaluation and management of inpatient Mike Powell DO Work Phone: [facility] Comment on above: 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) (Primary Dx) Start: 07-27-2023 End: 07-29-2023 ambulatory [facility] Start: 07-10-2023 End: 07-14-2023 ambulatory [facility] Start: 07-10-2023 End: 07-14-2023 Encounter for other preprocedural examination [facility] Start: 06-29-2023 End: 06-29-2023 ambulatory DAY Squires TOPHER [facility] Start: 06-14-2023 Refill Day Obando CONTAINER FINISHING INSPECTOR-LEAD SOFTWARE TEST ENGINEER Work Phone: [facility] Start: 06-07-2023 End: 06-09-2023 ambulatory [facility] Start: 05-19-2023 End: 05-24-2023 ambulatory [facility] Start: 05-15-2023 End: 05-17-2023 ambulatory CUAUHTEMOC [facility] Start: 04-03-2023 End: 04-03-2023 ambulatory Macey Rogersas Loc ANDERSON Facility: [facility] Start: 03-20-2023 End: 03-20-2023 ambulatory Andrius Aparnaytautas Alleyitis Facility: [facility] Start: 12-08-2022 ambulatory NARENDRANATH LAKSHMIPATHY [...] Facility:[facility] Start: 08-03-2022 End: 08-04-2022 ambulatory DAY TOPHER Facility:[facility] Start: 04-21-2022 End: 04-22-[address] WALTER LITTLEJOHN Facility:[facility] Start: 01-20-2022 End: 01-21-[address] WALTER LITTLEJOHN Facility:[facility] Procedures Date Procedure Procedure Detail Performing Clinician Start: 11-27-2023 Radex spine lumbosac ral only bending 2/3 views Mike Ahammad DO Work Phone: Start: 08-11-2023 Follow-up visit Follow-up DAY OBANDO Start: 08-11-2023 Adult depression scr eening assessment Day Obando CONTAINER FINISHING INSPECTOR-LEAD SOFTWARE TEST ENGINEER Work Phone: Start: 07-31-2023 Glucose blood reagen [...] Adult depression scr eening assessment Day Obando CONTAINER FINISHING INSPECTOR-LEAD SOFTWARE TEST ENGINEER Work Phone: Plan of Treatment Date Care Activity Detail Author Start: 01-11-2026 Screening for malign ant neoplasm of colon Colon Cancer Screening 3 Year [facility] Start: 03-03-2025 DTaP,Tdap and Td Vaccines (4 - Td or Tdap) DTaP,Tdap and Td Vaccines (4 - Td or Tdap) [facility] Start: 03-03-2025 DTaP/Tdap/Td vaccine (4 - Td or Tdap) DTaP/Tdap/Td vaccine (4 - Td or Tdap) [facility] Start: 08-10-2024 Adult BMI Screening Adult BMI Screen ing [facility] Start: 08-10-2024 Depression Screening Depression Scre ening [facility] Start: 08-10-2024 Tobacco Screening Tobacco Screening [facility] Start: 07-31-2024 GFR test (Diabetes, CKD 3-4, OR last GFR 15-59) GFR test (Diabetes, CKD 3-4, OR last GFR 15-59) [facility] Start: 07-31-2024 Lipid panel Lipids [facility] Start: 07-29-2024 Hemoglobin A1c measurement A1C test (Diabetic or Prediabetic) [facility] Start: 03-30-2024 Adult BMI Screening Adult BMI Screen ing [facility] Start: 03-30-2024 Depression Screening Depression Scre ening [facility] Start: 03-30-2024 Tobacco Screening Tobacco Screening [facility] Start: 02-19-2024 End: 02-19-2024 Patient encounter procedure 02/19/2024 1:30 PM EDT Office Visit [facility] [address], [address] [place] [id number] Mike Townsend, DO [address] [place] [id number] Scoli & Flex ext xrays [facility] Comment on above: Scoli & Flex ext xra ys Start: 01-11-2024 Influenza vaccination Flu vacc ine (Season Ended) MARCELA BELLAMY [facility] Start: 11-27-2023 End: 11-27-2023 Patient encounter procedure 11/27/2023 11:00 AM EDT Office Visit [place] [address] Ground Floor, [address] [place] [id number] Mike Townsend, DO [address] [place] [phone] Print PT OT [facility] Comment on above: Print PT OT Start: 11-10-2023 End: 11-10-2023 Patient encounter procedure 11/10/2023 8:40 AM EDT Office Visit [facility] [address] [place] [address] Day Obando, CONTAINER FINISHING INSPECTOR-LEAD SOFTWARE TEST ENGINEER [address] [place] [address] [facility] - [facility] Start: 09-25-2023 End: 09-25-2023 Patient encounter procedure 09/25/2023 11:00 AM EDT Office Visit [address] - [address] Floor, [address] [place] [id number] Mike Townsend DO [address] [place] [phone] 8 wk post op [facility] Comment on above: 8 wk post op Start: 08-14-2023 End: 08-14-2023 Patient encounter procedure 08/14/2023 9:30 AM EST [facility] [address] - [address] Floor, [address] [place] [phone] Bethany Burleson, CONTAINER FINISHING INSPECTOR - LEAD SOFTWARE TEST ENGINEER [address] [place], [place] [id number] 2 wk post op-ahammad [facility] Comment on above: 2 wk post op-ahammad Start: 06-29-2023 End: 06-29-2023 Patient encounter procedure 06/29/2023 9:00 AM EST Office Visit [facility] [address] [place] [address] Day Obando, CONTAINER FINISHING INSPECTOR-LEAD SOFTWARE TEST ENGINEER [address] [place] [address] [facility] Start: 02-10-2023 COVID-19 Vaccine ( season) COVID-19 Vaccine ( season) [facility] Start: 02-10-2023 Influenza vaccination Influenza Vacc ine [facility] Start: 01-10-2023 Influenza vaccination Flu vaccine (# 1) [facility] Start: 2019 Respiratory Syncytia l Virus (RSV) or age 60 yrs+ (1 - 1-dose 60+ series) Respiratory Syncytial Virus (RSV) or age 60 yrs+ (1 - 1-dose 60+ series) [facility] Start: 2009 Administration of varicella zoster vaccine Zoster (Shingles) Vaccine (1 of 2) [facility] [employer] [facility] Start: 2009 Screening for malign ant neoplasm of lung Low dose CT lung screening &/or counseling [facility] Start: 2009 Shingles vaccine (1 of 2) Shingles vaccine (1 of 2) [facility] Start: 01-26-2004 Screening for malign ant neoplasm of colon [facility] Start: 1977 Adult BMI Follow Up Plan Adult BMI Follow Up Plan [facility] Start: 1977 Diabetic foot examination Diabetic Foot Exam [facility] Start: 1977 Glaucoma screening Diabetic retinal exam [facility] Start: 1977 Hepatitis C screening Hepatitis C sc reen [facility] Start: 1977 Urine screening for protein Diabetic Alb to Cr ratio (uACR) test [facility] Start: 1974 HIV screening HIV screen [facility] Start: 1971 Depression Screen Depression Screen [facility] Start: 1969 Diabetic foot examination Diabetic foot exam [facility] Start: 1965 Pneumococcal 0-64 ye ars Vaccine (1 - PCV) Pneumococcal 0-64 years Vaccine (1 - PCV) [facility] Start: 1965 Pneumococcal 0-64 ye ars Vaccine (1 of 2 - PCV) Pneumococcal 0-64 years Vaccine (1 of 2 - PCV) [facility] Start: 1959 COVID-19 Vaccine (#1) COVID-19 Vacci ne (#1) [facility] Start: 1959 Glaucoma screening Diabetic Op hthalmology Exam [facility] [employer] [facility] Start: 1959 Urine screening for protein Urine Microalbumin [facility] End: 07-28-2023 Glucose [Mass/volume] in Serum or Plasma [facility] [employer] [facility] Comment on above: 4X Daily (AC & HS) u ntil discontinued starting 07/28/2023 One Time for 1 Occur rences starting 07/28/2023 until 07/28/2023 As Needed until disc ontinued starting 07/28/2023 Oxygen therapy [[facility] Data Set] Initiate Oxygen Therapy Protocol Respiratory Care Routine As Needed until discontinued starting 07/28/2023 [employer] Comment on above: As Needed until disc ontinued starting 07/28/2023 Spirometry panel Incentive jerome metry Respiratory Care Routine Every 2hr while awake until discontinued starting 07/28/2023 [employer] Comment on above: Every 2hr while awak e until discontinued starting 07/28/2023 Spirometry panel Incentive jerome metry RT Respiratory Care Routine Every 2hr while awake until discontinued starting 07/29/2023 [employer] Comment on above: Every 2hr while awak e until discontinued starting 07/29/2023 End: 11-23-2023 XR Cervical spine 2 or 3 Views [employer] Work Phone: Comment on above: 1 Occurrences starti ng 11/23/2023 until 11/23/2023 Immunizations Immunization Date Immunization Notes [facility] Provider [facility] tetanus toxoid, redu latricia diphtheria toxoid, and acellular pertussis vaccine, adsorbed Day Topher CONTAINER FINISHING INSPECTOR-LEAD SOFTWARE TEST ENGINEER Work Phone: [employer] 05-26-2013 tetanus toxoid, redu latricia diphtheria toxoid, and acellular pertussis vaccine, adsorbed Day Topher CONTAINER FINISHING INSPECTOR-LEAD SOFTWARE TEST ENGINEER Work Phone: [employer] 07-05-2011 tetanus toxoid, redu latricia diphtheria toxoid, and acellular pertussis vaccine, adsorbed Day Topher CONTAINER FINISHING INSPECTOR-LEAD SOFTWARE TEST ENGINEER Work Phone: [employer] Work Phone: Payers Date Payer Category Payer Private Health Insurance [facility]/[place] [id number] 2022-Present [phone] [address] [address] [place] [address] [id number]. [id number] 2022 Unknown 1959 Medicare [id number] 1959 Unknown [id number] 1959 Unknown [id number] 1959 Unknown [id number] 2.16.840.1.712003.3.579. 2.593 1959 Unknown [id number] 2.16.840.1.255393.3.579. 2.593 1959 Unknown [id number] 2.16.840.1.036226.3.579. 2.593 1959 Unknown [id number] 2.16.840.1.882637.3.579. 2.593 1959 Unknown [id number] 2.16.840.1.505702.3.579. 2.59 1959 Unknown [id number] 2.16.840.1.181573.3.579. 2.593 1959 Unknown [id number] 2..840.1.905023.3.579. 2.593 1959 Unknown [id number] 2.16.840.1.579767.3.579. 2.593 1959 Unknown [id number] 2..840.1.442787.3.579. 2.593 1959 Unknown [id number] 2.16.840.1.944689.3.579. 2.593 1959 Unknown [id number] 2..840.1.944390.3.579. 2.593 1959 Unknown [id number] 2.16.840.1.587874.3.579. 2.593 1959 Unknown [id number] 2.16.840.1.180821.3.579. 2.593 1959 Unknown [id number] 2.16.840.1.980050.3.579. 2.593 1959 Unknown [id number] 2.16.840.1.317127.3.579. 2.177 1959 Unknown [id number] 2.16.840.1.315853.3.579. 2.173 1959 Unknown [id number] 2.16.840.1.487532.3.579. 2.173 1959 Unknown [id number] 2.16.840.1.314452.3.579. 2.173 1959 Unknown [id number] 2.16.840.1.741854.3.579. 2.173 1959 Unknown [id number] 2.16.840.1.384336.3.579. 2.173 1959 Unknown [id number] 2.16.840.1.540155.3.579. 2.175 1959 Unknown [id number] 2.16.840.1.984504.3.579. 2.175 1959 Unknown [id number] 2.16.840.1.562709.3.579. 2.175 1959 Unknown [id number] 2.16.840.1.093667.3.579. 2.175 1959 Unknown [id number] 2.16.840.1.688188.3.579. 2.175 1959 Unknown [id number] 2.16.840.1.959062.3.579. 2.175 1959 Unknown [id number] 2.16.840.1.634024.3.579. 2.1285 1959 Unknown [id number] 2.16.840.1.007535.3.579. 2.1285 1959 Unknown [id number] 2.16.840.1.414549.3.579. 2.1285 1959 Unknown [id number] 2.16.840.1.385730.3.579. 2.128 1959 Unknown [id number] 2.16.840.1.967384.3.579. 2.1286 1959 Unknown [id number] 2.16.840.1.815370.3.579. 2.1285 1959 Unknown [id number] 2.16.840.1.731661.3.579. 2.128 1959 Unknown [id number] 2.16.840.1.405373.3.579. 2.1285 1959 Unknown [id number] 2.16.840.1.747947.3.579. 2.128 1959 Unknown [id number] 2.16.840.1.440855.3.579. 2.1285 1959 Unknown [id number] 2.16.840.1.818039.3.579. 2.1285 1959 Unknown [id number] 2.16.840.1.183682.3.579. 2.128 1959 Unknown [id number] 2.16.840.1.713961.3.579. 2.1285 1959 Unknown [id number] 2.16.840.1.026986.3.579. 2.196 1959 Unknown [id number] 2.16.840.1.157330.3.579. 2.196 1959 Unknown [id number] 2.16840.1.379405.3.579. 2.196 Social History Date Type Detail Facility Start: 07-07-2022 End: 06-07-2023 Tobacco smoking status NHIS Ex-smoker [facility] Start: 06-18-1998 End: 06-18-2018 History of tobacco use Current smoker [facility] Start: 06-18-1998 End: 06-18-2018 History of tobacco use Cigarette Smoker [facility] Start: 07-07-2022 End: 07-10-2023 Cigarettes smoked current (pack per day) - Reported 1.5 [facility] Start: 07-07-2022 End: 06-07-2023 Tobacco use and exposure Smokeless tobacco non-user [facility] Start: 03-30-2023 End: 08-11-2023 Alcohol intake Current non-drinker of alcohol (finding) [facility] Start: 09-17-2018 End: 07-10-2023 Alcohol Use Disorder Identification Test - Consumption [AUDIT-C] [facility] Frequency of Alcohol Consumption Never [facility] Start: 1960 Sex Assigned At Not on file [facility] Start: 07-31-2023 End: 08-14-2023 Alcohol intake Lifetime non-drinker (finding) [employer] Has the electric, ga s, oil, or water company threatened to shut off services in your home in past 12Mo No [employer] (I/We) worried wheblanca (my/our) food would run out before (I/we) got money to buy more. Never true [employer] Medical Equipment Procedure Code Equipment Code Equipment Origin al Text Equipment Identifier Dates Brng Tib [id number] mm 0d Kn Ant - [id number] Start: 03-27-2019 Cmnt Bn Bio 40gm Rpl [id number] - [id number] Start: 03-27-2019 Cmpt Ptlr Thn 31 mm 3 Pg Kn Ser - [id number] Start: 03-27-2019 Impl Spine Chapin Symphony 4.0mm 240mm - [id number] Start: 07-28-2023 Screw Spnl Polya x 5.5x30 Mm Oct For 4 Mm Chapin Ns Sym - [id number] Start: 07-28-2023 Screw Spnl Polya x 5.5x32 Mm Oct For 4 Mm Chapin Ns Sym - [id number] Start: 07-28-2023 Screw Spnl 3.5x1 4mm Symphony - [id number] Start: 07-28-2023 Screw Spinal F/Symphony Oct System - [id number] Start: 07-28-2023 Goals Date Patient Goal Desired Activity /State Personal health goal Comment on above: Formatting of this n ote might be different from the original. Evaluation of progress towards goal: Maximize work w pt at discharge to strengthen lt knee Clinical Notes 01-20-2022 to 08-11-2023 Day Obando, JULIETTE-LEAD SOFTWARE TEST ENGINEER - 08/11/2023 10:30 AM Pedro Olson APRN - LEAD SOFTWARE TEST ENGINEER - 07/31/2023 1:19 PM Donna Gipson PT - 07/31/2023 12:52 PM Jude Mcghee MD - 07/31/2023 11:01 AM EST Note Date & Type Note Facility 08-11-2023 History of Present illness Narrative Images from the original note were not included. Subjective Patient ID: Beau Lozano is a 63 y.o. male. The patient [...] and headaches. Objective Physical Exam Vitals reviewed. Procurement Officer present: Here with spouse. Constitutional: General: He [...] Affect: Mood normal. Behavior: Behavior normal. Assessment/Plan Beau was seen today for follow-up. Diagnoses and all orders for this visit: Type 2 diabetes mellitus without complication, without long-term current use of insulin ([facility]) Essential hypertension Other orders - metoprolol [...] discuss getting sleep study and DM management. Day DINORA Perez 08/14/23 1023 documented in this encounter [facility] 07-31-2023 Hospital course Narrative Images from the original note were not included. Department of Neurosurgery Discharge Summary PATIENT NAME: Beau Lozano BIRTHDATE: 1960 DATE: 07/31/2023 PRIMARY CARE PHYSICIAN: Dya Obando APRN - CNP DISCHARGE DATE: 07/31/2023 DISCHARGE DIAGNOSIS: Stenosis of cervical spine with myelopathy Patient Active Problem List Diagnosis Code 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) M48.02, G99.2 Primary hypertension I10 Type 2 diabetes mellitus ([facility]) E11.9 DISPOSITION: Home PROCEDURES: Posterior lateral arthrodesis at C3, C4, C5, C6, C7, T1, T2 Laminectomy to decompress the spinal cord at C3, C4, C5, C6, C7, T1 Left-sided T1 transpedicular discectomy HOSPITAL COURSE Beau Lozano originally presented to the hospital on 07/28/2023 [...] were followed daily. At time of discharge, Beau Lozano was tolerating a ADULT DIET; Regular; 4 [...] as: KLOR-CON Vitamin D3 50 MCG (1999 [place]) Caps STOP taking these medications HYDROcodone-acetaminophen 5-325 [...] Your Medications These medications were sent to [facility], [place] - [address] [facility] - P [phone] - F [phone] [place], [place] [id number] metoprolol tartrate 25 MG tablet oxyCODONE-acetaminophen 5-325 MG per tablet Diet: ADULT DIET; Regular; 4 carb choices (60 gm/meal) diet as tolerated Activity: Provided in AVS Wound Care: Daily and as needed Follow-up: in the [facility] clinic as shown in AVS Time Spent for discharge: 30 minutes JULIETTE Dominique CNP 07/31/2023, 1:19 PM documented in this encounter [facility] 07-31-2023 History of Present illness Narrative Physical Therapy Facility/Department: [address] NEURO Physical Therapy Progress Note Name: Beau Lozano : 1960 Date of Service: 07/31/2023 Discharge [...] Standing - Dynamic: Fair Comments: with rwalker [facility] - Mobility [facility] Basic Mobility - Inpatient How much [...] 3-5 steps with a railing?: A Little [facility] Inpatient Mobility Raw Score : 19 [facility] Inpatient T-Scale Score : 45.44 Mobility Inpatient CMS 0-100% Score: 41.77 Mobility Inpatient [facility] G-Code Modifier : CK [...] from the original note were not included. [facility] Internal Medicine Teaching Residency Program Inpatient Daily Progress Note Patient: Beau Lozano Date of : 1960 Acct: [id number] Room: 0101/0101-01 Admit date: 07/28/2023 Today's date: 07/31/23 Number [...] 3.7 CL -- 105 98 CO2 -- 24 BUN -- 14 14 CREATININE -- [...] medical standpoint Soraida Frias PGY-3 Internal Medicine [place], [place] 11:02 AM 07/31/2023 Attestation and add on I have discussed the care of Beau Lozano , including pertinent history and exam findings, 07/31/23 with the resident. I have seen and examined the patient and the sen elements of all parts of the encounter have been performed by me . I agree with the assessment, plan and orders as documented by the resident[place] [address]. Answering Service: Images from the original note were not included. Physical Therapy Cancel Note DATE: 07/31/2023 NAME: Beau Lozano : 1960 Patient not seen this date [...] (!) 106 (!) 109 (!) 110 Resp: 04 27 16 11 Temp: 98.4 F (36.9 C) [...] X.Serafin Palomino DO Neurosurgeon Neurosurgical oncologist Office: [phone] Cell: [phone] Images from the original note were not included. [facility] Internal Medicine Teaching Residency Program Inpatient Daily Progress Note Patient: Beau Lozano Date of : 1960 Acct: [id number] Room: 010/0101-01 Admit date: 07/28/2023 Today's date: 07/30/23 Number [...] -- -- 243 BMP: Recent Labs 07/28/23 10507/28/23 1229 07/29/23 0614 NA 141 137 137 [...] OT on board Discharge Planning / SW: artist manager discharge planning Terri Ayala MD Internal Medicine Resident, PGY-1 [facility], [place], [place] 07/30/2023, 7:00 AM Attestation and add on I have discussed the care of Beau Lozano , including pertinent history and exam findings, 07/30/23 with the resident. I have seen and examined the patient and the sen elements of all parts of the encounter have been performed by me . I agree with the assessment, plan and orders as documented by the resident. Prgressing satisfactor[place] [address]. Answering Service: [facility] - [facility] PROGRESS NOTE Shift date: 07/29/2023 Shift day: Monday Shift # 2 Room # 0101/0101-01 Name: Beau Lozano Church: Place of buddhism: Referral: Routine Visit Admit Date & Time: 07/28/2023 5:37 AM Assessment: Beau Lozano is a 63 y.o. male in the hospital . Patient had family support present in room and appeared calm and coping. Intervention: Child Day Care Provider introduced self and title as biometrician. Patient did not appear to mind biometrician presence and engaged in conversation. Green House Manager provided a supportive presence through active listening and words of affirmation. Outcome: Patient appeared receptive to biometrician visit. Plan: Chaplains will remain available to offer spiritual and emotional support as needed. . [facility] [phone] Physical Therapy Facility/Department: [address] NEURO Physical Therapy Initial Assessment Name: Beau Lozano : 1960 Date of Service: 07/29/2023 Pt admitted for C2-T2 POSTERIOR FUSION, DECOMPRESSION (LEXII SPINE TABLE, PRONE, [place] HEADHOLDER, C-ARM, O-ARM, SSEP MONITORING, [employer], [employer] NAVIGATION done 07/28/23. Discharge Recommendations: In my [...] transfers CG+1, gait 120' CG+1, forward posture, [place] collar. Body Structures, Functions, Activity Limitations Requiring [...] d/t LE weakness/pain) Transfer Assistance: Independent Active [employer] Power Plant Engineer: Yes Vision/Hearing Vision Vision: Impaired Vision Exceptions: [...] Fair;- Comments: with rwalker Exercise Treatment: ankle [id number] A/AROM Exercises: AAROM B hips, limited by [...] X.Serafin Palomino DO Neurosurgeon Neurosurgical oncologist Office: [phone] Cell: [phone] Images from the original note were not included. [facility] Internal Medicine Teaching Residency Program Inpatient Daily Progress Note Patient: Beau Lozano Date of : 1960 Acct: [id number] Room: Admit date: 07/28/2023 Today's date: 07/28/23 Number [...] HCT 44.5 47.3 47.0 BMP: Recent Labs 07/28/23100607/28/23 10507/28/23 1229 NA 140 141 137 K 2.9* [...] OT on board Discharge Planning / SW: artist manager discharge planning Terri Ayala MD Internal Medicine Resident, PGY-1 [facility], [place], [place] 07/29/2023, 5:09 AM Attestation and add on I have discussed the care of Beau Lozano , including pertinent history and exam findings, [...] 166* BP control [place] [address]. Answering Service: Neurosurgery Post op Progress Note [...] remains in house. documented in this encounter [facility] 07-31-2023 Hospital Discharge instructions Soraida Frias [...] or concerns. The office phone number is [phone]. documented in this encounter [facility] 09-15-2022 Note CONSULTATION CONSULTATION DATE: 09/15/2022 [...] our patients to inform us about any cowm-xhn-yjccytu medications or herbal remedies/nutritional supplements/alternative remedies. 2. [...] options with their primary care provider. [facility] 08-09-2022 Note PROCEDURE: XR KNEE R T 3V COMPARISON: None. HISTORY: Pain of right knee joint FINDINGS: BONES:No acute fracture or dislocation. Mild degenerative osteoarthropathy with mild atrophy. SOFT TISSUES:Negative. No visible soft tissue swelling. EFFUSION:None visible. OTHER: Negative. IMPRESSION: Mild osteoarthritis Electronically authenticated by: GUILLERMO AMADOR Date: 2022-08-09 17:19 [facility] 08-09-2022 Note PAIN MANAGEMENT CONS ULTATION [...] under fluoroscopic guidance. Will as well. [facility] 04-21-2022 Note CONSULTATION CONSULTATION DATE: 04/21/2022 [...] up in the office post procedure. [facility] 01-20-2022 Note CONSULTATION CONSULTATION DATE: 01/20/2022 [...] agrees with the plan of care. [facility] Evaluation note Diagnosis 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)- Primary 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) Primary hypertension Unspecified essential hypertension Type 2 diabetes mellitus (HCC) Type II or unspecified type diabetes mellitus without mention of complication, not stated as uncontrolled [facility] this [facility] Diagnosis Type 2 diabetes mellitus without complication, without long-term current use of insulin ([facility])- Primary Essential hypertension Unspecified essential hypertension [facility] Diagnosis 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) documented in this encounter [facility] note* Diagnosis Lumbar disc disease with radiculopathy Displacement of lumbar intervertebral disc without myelopathy documented in this encounter [facility] filedocumented in this encounter [facility] filed[facility] in this [facility] on filedocumented in this encounter [facility] filed[facility]ed in this encounter [facility] Purpose Family History No Family [...] Referral Specialty Diagnoses / Procedures Referred By Sandor faulkner Referred To Contact Physical Therapist Diagnoses 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) Pedro Mitchell, CONTAINER FINISHING INSPECTOR - LEAD SOFTWARE TEST ENGINEER [address] [place] [address] Referral ID Status Reason Start Date Expiration Date Visits Requested Visits Authorized [id number] Pending Review Specialty Services Required 07/31/2023 01/27/2024 [...] pital DATE CREATED AUTHOR AUTHOR'S ORGANIZ ATION 05/26/2023 [facility] DATE CREATED AUTHOR AUTHOR'S ORGANIZ ATION 11/28/2023 [facility] DATE CREATED AUTHOR AUTHOR'S ORGANIZ ATION 11/30/2023 [facility] DATE CREATED AUTHOR AUTHOR'S ORGANIZ ATION 12/11/2023 [facility] DATE CREATED AUTHOR AUTHOR'S ORGANIZ ATION 01/01/2024 [facility] DATE CREATED AUTHOR AUTHOR'S ORGANIZ ATION 01/23/2024 [facility] Reason for Visit (unrecogniz ed section and content) Reason Comments Med Refill Specialty Diagnoses / Procedures Referred By Contalexey t Referred To Contact Diagnoses 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) 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) [M48.02, G99.2] Procedures MN ARTHRD PST/PSTLAT TQ 1NTRSPC CRV BELW C2 SEGMENT MN ALLOGRAFT FOR SPINE SURGERY ONLY MORSELIZED MN AUTOGRAFT SPINE SURGERY LOCAL FROM SAME INCISION MN MICROSURG TQS REQ USE OPERATING MICROSCOPE MN STEREOTACTIC COMPUTER ASSISTED PX SPINAL MN LAMINECTOMY W/O FFD > 2 VERT SEG CERVICAL MN ARTHRODESIS PST/PSTLAT TQ 1NTRSPC EA ADDL NTRSPC MN ARTHRODESIS PST/PSTLAT TQ 1NTRSPC EA ADDL NTRSPC MN ARTHRODESIS PST/PSTLAT TQ 1NTRSPC EA ADDL NTRSPC MN ARTHRODESIS PST/PSTLAT TQ 1NTRSPC EA ADDL NTRSPC MN ARTHRODESIS PST/PSTLAT TQ 1NTRSPC EA ADDL NTRSPC MN ARTHRODESIS PST/PSTLAT TQ 1NTRSPC EA ADDL NTRSPC MN POSTERIOR SEGMENTAL INSTRUMENTATION 7-12 VRT SEG C2-T2 POSTERIOR FUSION, DECOMPRESSION ([place] SPINE TABLE, PRONE, [place] HEADHOLDER, C-ARM, O-ARM, SSEP MONITORING, [employer]PU[employer], [employer] NAVIGATION, [facility] CONF# [id number]) *DR. YODER TO ASSIST* SHORT STAY Mike Townsend DO [address] [facility] [address] [place] [address] [facility] [address] [place] [address] Referral ID Status Reason Start Date Expiration Date Visits Re quested Visits Authorized [id number] 1 1 Reason Comments Follow-up Care Teams (unrecognized sec tion and content) Senior Game Designer Relationship Specialty Start Date End Date Walter Littlejohn DO [address] [place] [address] PCP - General Family Medicine 09/17/18 Senior Game Designer Relationship Specialty Start Date End Date Day Obando CONTAINER FINISHING INSPECTOR - LEAD SOFTWARE TEST ENGINEER [address] [place] [address] PCP - General Family Medicine 04/10/23 Senior Game Designer Relationship Specialty Start Date End Date Day Obando CONTAINER FINISHING INSPECTOR-LEAD SOFTWARE TEST ENGINEER [address] [place] [address] PCP - General Internal Medicine 06/29/23 Senior Game Designer Relationship Specialty Start Date End Date Day Obando CONTAINER FINISHING INSPECTOR-LEAD SOFTWARE TEST ENGINEER [address] [place] [address] PCP - General Internal Medicine 06/29/23 Senior Game Designer Relationship Specialty Start Date End Date Day Obando CONTAINER FINISHING INSPECTOR-LEAD SOFTWARE TEST ENGINEER [address] [place] [address] PCP - General Internal Medicine 06/29/23 Senior Game Designer Relationship Specialty Start Date End Date Day Obando CONTAINER FINISHING INSPECTOR - LEAD SOFTWARE TEST ENGINEER [address] [place] [address] PCP - General Family Medicine 04/10/23 Senior Game Designer Relationship Specialty Start Date End Date Day Obando CONTAINER FINISHING INSPECTOR - LEAD SOFTWARE TEST ENGINEER [address] [place] [address] PCP - General Family Medicine 04/10/23 Senior Game Designer Relationship Specialty Start Date End Date Day Obando APRN - LEAD SOFTWARE TEST ENGINEER [address] [place] [address] PCP - General Family Medicine 04/10/23 Ordered [...] Poonam Azul RN)1059 (Given - Provider: Kennedy Carranza, NANCY)1731 (Given - Provider: Kennedy Carranza, NANCY)2249 (Given - Provider: Sweetie Villagomez RN) 0554 (Given - Provider: Sweetie Villagomez RN)1203 (Given - Provider: Lurdes Wiley, NANCY)1746 (Given - Provider: Lurdes Wiley, NANCY)2149 (Given - Provider: Sweetie Villagomez, NANCY) 0431 (Given - Provider: Sweetie Villagomez RN)1118 [...] (MEVACOR)., Post-op 0920 (Given - Provider: Kennedy Carranza RN) 0945 (Given - Provider: Lurdes Wiley RN) 0837 (Given - Provider: Ozzie Miranda RN) ceFAZolin (ANCEF) 2000 mg in sterile water 20 mL IV syringe (COMPLETED) 2,000 mg, IntraVENous, EVERY 8 HOURS, 3 doses, First dose on Mon07/28/23 at 2030, Last dose on Mon07/29/23 at 1330, Antimicrobial Indications: Surgical Prophylaxis, Administer over 5 mins., Post-op 0459 (Given - Provider: Poonam Azul RN)1335 (Given - Provider: Kennedy Carranza RN) cyclobenzaprine (FLEXERIL) tablet 10 mg 10 mg, Oral, 3 TIMES DAILY, First dose (after last modification) on Mon07/30/23 at 1400, Until Discontinued, Post-op 1602 (Given - Provider: Claudia Chaidez RN)2111 (Given - Provider: Sweetie Villagomez RN) 0838 (Given - Provider: Ozzie Miranda, NANCY)1539 (Given - Provider: Ozzie Miranda, NANCY)2100 (Due) enoxaparin (LOVENOX) injection 40 mg 40 mg, SubCUTAneous, DAILY, First dose on 07/29/23 at 0900, Until Discontinued, Indication of Use: Prophylaxis-DVT/PE, Administer by deep subCUTAneous injection with pt lying down. Alternate injection sites on abdominal wall. Do not rub site after injection. Check with provider prior to any invasive procedure., Post-op 0921 (Given - Provider: Kennedy Carranza RN) 0946 (Given - Provider: Lurdes Wiley RN) 0837 (Given - Provider: Ozzie Miranda RN) famotidine (PEPCID) 20 mg in sodium chloride [...] 0837 (See Alternative - Provider: Ozzie Miranda RN)2100 (Due) famotidine (PEPCID) tablet 20 mg(Linked Group 1) 20 mg, Oral, 2 TIMES DAILY, First dose on Mon07/28/23 at 2100, Until Discontinued, Post-op 0920 (Given - Provider: Kennedy Carranza RN)2006 (Given - Provider: Sweetie Villagomez RN) 0945 (Given - Provider: Lurdes Wiley RN)1920 (See Alternative - Provider: Sweetie Villagomez RN)1956 (Given - Provider: Sweetie Villagomez RN) 0837 (Given - Provider: Ozzie Miranda RN)2100 (Due) gabapentin (NEURONTIN) capsule 300 mg (CANCELED) 300 mg, Oral, EVERY 4 HOURS SCHEDULED (6 times per day), First dose (after last modification) on Mon07/30/23 at 1630, Until Discontinued, Post-op 1617 (Given - Provider: Claudia Chaidez RN)1956 (Given - Provider: Sweetie Villagomez RN) 002 (Given - Provider: Sweetie Villagomez RN)0431 (Given [...] dose on Mon07/28/23 at 1815, Until Discontinued 0927 (Given - Provider: Kennedy Carranza RN) 0945 [...] RN - Reason: Order parameters not met) 2099 (Due) lisinopril (PRINIVIL;ZESTRIL) tablet 40 mg(Linked Group [...] On Mon07/30/23 at 1830, For 1 dose 183 (New Bag - Provider: Lurdes Wiley RN)1938 (Stopped - Provider: Sweetie Villagomez RN) sodium [...] mL/lumen, Post-op 0922 (Given - Provider: Kennedy Carranza RN)2005 (Given - Provider: Sweetie Villagomez RN) 1015 (Not Given - Provider: Lurdes Wiley RN - Reason: Other)1956 (Given - Provider: Sweetie Villagomez RN) 0843 (Given - Provider: Ozzie Miranda RN)2100 (Due) Vitamin D (CHOLECALCIFEROL) tablet 2,000 Units 2,000 Units, Oral, DAILY, First dose on Mon07/28/23 at 1800, Until Discontinued, Post-op 09 (Given - Provider: Kennedy Carranza RN) 0948 (Given - Provider: Lurdes Wiley RN) 0837 (Given - Provider: Ozzie Miranda RN) PRN Medication Order 07/29/2023 07/30/2023 07/31/2023 0.9 [...] PRN, Starting on Mon07/28/23 at 1454, Until Mon07/30/23 at 1306, Muscle spasms, Post-op 2249 (Given - Provider: Sweetie Villagomez, RN) 0738 (Given - Provider: Lurdes Wiley [...] on Mon07/28/23 at 1723, Until 07/30/23 at 1306, as [...] Poonam Azul RN)1055 (Given - Provider: Kennedy Carranza, NANCY)1539 (Given - Provider: Kennedy Carranza, NANCY)2005 (Given - Provider: Sweetie Villagomez RN)2303 (Given - Provider: Sweetie Villagomez RN) 0338 (Given - Provider: Sweetie Villagomez RN) [...] Carranza RN)1732 (Given - Provider: Kennedy Carranza RN)2120 (Given - Provider: Sweetie Villagomez RN) 0102 (Given - Provider: Susana Marshall RN)0553 (Given - Provider: Sweetie Villagomez RN)0945 (Given - Provider: Lurdes Wiley RN)1327 (Given - Provider: Lurdes Wiley, NANCY)1746 (Given - Provider: Lurdes Wiley, NANCY)2149 (Given - Provider: Sweetie Villagomez RN) 0147 (Given - Provider: Sweetie Villagomez RN)0716 (Given - Provider: Sweetie Villagomez RN)1117 (Given - Provider: Ozzie Miranda RN)1539 (Given - Provider: Ozzie Miranda RN) oxyCODONE [...] Villagomez RN)0945 (See Alternative - Provider: Lurdes Wiley, NANCY)1327 (See Alternative - Provider: Lurdes Wiley, RN)1746 (See Alternative - Provider: Lurdes Wiley, RN)2149 (See Alternative - Provider: Sweetie Villagomez [...] on Mon07/28/23 at 1723, Until Mon07/30/23 at 0808, Pain Moderate (4-6)
If oral [...] BE BASED ON THE PRIMARY CLINICAL RECORDS. [employer] provides no warranty or guarantee of the accuracy or completeness of information in this document.
--- NOTE | 2024-01-25 09:17 | P.CN_ITS ---
Consult Note: HPI Data of Consult Patient: known to practice within the last 3 years Requesting Physician: Nikki Hadley NP Primary Care Provider: MALGORZATA LITTLEJOHN Consult Narrative Reason for consult: f/u Narrative: Beau Lozano a pleasant 63 year old male presents for evaluation of chronic back pain unresponsive to HEP and PT greater than 6 weeks and conservative medications. Pt has extensive hx of moderate to severe spinal canal stenosis from cervical to lumbar spine with multilevel DDD and facet arthropathy. patient recently underwent C3-T2 decompression and fusion with significant improvement in pain and symptoms. Patient reporting pain 3-4/10 dull ache today increasing to 7/10 with standing walking activity and improved with sitting lying and medications. Patient continues to utilize diclofenac 75mg BID, skelaxin 800mg BID-TID, gabapentin 600mg QID, tramadol 50mg TID with benefit, denies side effects. Patient has been following with SHARON Townsend, we completed a left L3 TFESI with 100% improvement that day and mild relief ongoing. Patient pleased with current medication regimen, finding significant functional improvement. LESLIE 36% today. cc:: CC: Nikki Hadley NP Review of Systems ROS Status of ROS 10 or more systems reviewed and unremark able except as noted in history and below Musculoskeletal Reports: back pain and neck pain PFSH PFSH Medical History Osteoarthritis ?M19.90 - Unspecified osteoarthritis, unspecified site (ICD-10) Diabetes ?E11.9 - Type 2 diabetes mellitus without complications (ICD-10) HTN (hypertension) ?I10 - Essential (primary) hypertension (ICD-10) High cholesterol ?E78.00 - Pure hypercholesterolemia, unspecified (ICD-10) Surgical History History of arthroscopy of knee ?Z98.890 - Other specified postprocedural states (ICD-10) History of knee replacement ?Z96.659 - Presence of unspecified artificial knee joint (ICD-10) History of hernia repair ?Z98.890 - Other specified postprocedural states (ICD-10) ?Z87.19 - Personal history of other diseases of the digestive system (ICD-10) Meds Home Medications and Allergies Home Medications ?Medication ?Instructions ?Recorded ?Confirmed ?Type amlodipine 10 mg tablet 10 mg PO DAILY 12/08/22 01/08/24 History lisinopril 20 1 tab PO DAILY 12/08/22 01/08/24 History mg-hydrochlorothiazide 12.5 mg tablet lovastatin 10 mg tablet 10 mg PO DAILY 12/08/22 01/08/24 History metformin 1,000 mg tablet 1,000 mg PO BID 12/08/22 01/08/24 History potassium chloride 10 mEq 10 meq PO DAILY 12/08/22 01/08/24 History tablet,extended release (K-Tab) tramadol 50 mg tablet 50 mg PO TID 12/08/22 01/08/24 History gabapentin 600 mg tablet 600 mg PO QID 06/15/23 01/08/24 History cholecalciferol (vitamin D3) 50 50 mcg PO DAILY 09/21/23 01/08/24 History mcg (2,000 unit) capsule (D3-2000) diclofenac sodium 100 mg 100 mg PO BID 09/21/23 01/08/24 History tablet,extended release 24 hr empagliflozin 25 mg tablet 25 mg PO DAILY 09/21/23 01/08/24 History (Jardiance) metaxalone 800 mg tablet 800 mg PO BID 09/21/23 01/08/24 History multivitamin 1 tab PO DAILY 09/21/23 01/08/24 History tramadol 50 mg tablet 50 mg PO TID PRN pain #90 tabs 10/19/23 01/08/24 Rx tramadol 50 mg tablet 50 mg PO TID PRN pain #90 tabs 11/16/23 01/08/24 Rx tramadol 50 mg tablet 50 mg PO TID PRN pain #90 tabs 12/13/23 01/08/24 Rx tramadol 50 mg tablet 50 mg PO TID PRN pain #90 tabs 01/15/24 Rx Allergies Allergy/AdvReac Type Severity Reaction Status Date / Time No Known Drug Allergies Allergy Verified 04/03/23 08:24 Exam Constitutional Documenting provider has reviewed patient's vital signs: yes Common normals: no apparent distress, oriented x3, healthy appearing, alert and well nourished General appearance: cooperative HENVA Common normals: normocephalic, hearing grossly normal bilaterally and moist oral mucous membranes Head and scalp: normocephalic Eye Common normals: PERRL Pupil: PERRL Neck & C-Spine Common normals: full ROM General: normal visual inspection Cervical spine: cervical ROM abnormal and paracervical muscle tenderness Other: surgical scar well healed Chest Common normals: inspection of chest normal Respiratory Common normals: normal respiratory effort, no retractions and no use of accessory muscles Back & Pelvis Thoracic spine/upper back: ROM limited and pain with ROM Lumbar spine/lower back: ROM limited, pain with ROM and straight leg raise negative bilaterally Sacroiliac joints: SI joints normal Other: strength 5/5 in BLE Extremity Common normals: normal to inspection and full ROM Neuro Common normals: oriented x3, CN's II-XII intact bilaterally, moves all extremities, no focal motor deficits, no sensory deficits noted and deep tendon reflexes 2+ bilaterally Sensorium/orientation: alert Gait (neuro): antalgic Motor exam: strength 5/5 throughout and no movement abnormalities noted Psych Common normals: mental status grossly normal, thought process normal, cooperative, affect normal, speech normal and activity/motor behavior normal Speech: normal speech Thought process: normal thought process Results Additional Findings Additional findings: If on a controlled substance or opioids, I have checked an [place]AR[place] report on this patient and there are no aberrancies noted in the prescribing history.??If on a controlled substance or opioid a drug screen was completed and reviewed within the last year, and if there has not been a drug screen completed we ordered one today to monitor higher risk, state monitored pain medication use. As part of providing excellent, safe, comprehensive care, the following was completed at our patient's visit: 1. A medication reconciliation and review to ensure accurate knowledge of current/active medications, including asking our patients to inform us about any [id number] medications or herbal remedies/nutritional supplements/alternative remedies. 2. A review to specifically ensure our patients have had annual screening for screening for depression, screening for tobacco use, and screening for unhealthy alcohol use. For concerning screenings had a discussion with the patient, provided patient education, and recommended follow-up with primary care provider when appropriate. If patient noted with a risk of falling, they received education on strength, gait, and balance training to prevent future risk of falling. Assessment and Plan Assessment and Plan (1) Lumbar radiculopathy: (2) Cervical spinal stenosis: (3) Neuropathy: (4) Lumbar stenosis with neurogenic claudication: (5) Myofascial pain syndrome of lumbar spine: (6) Chronic, continuous use of opioids: Assessment and Plan: I feel these medications are improving the patient's quality of life and allow them to tolerate activities of daily living as well as participate in recreational activity.? The patient does not report intolerable side effects. The patient is NOT opioid naive and non-pharmacologic and non-opioid treatment has failed to significantly relieve the patient's pain and improve functionality. The patient has a diagnosis that is related to a somatic or visceral pain etiology. ? ?? I reviewed with the patient the potential risks and side effects with the use of? opioid medications including but not limited to respiratory depression,? sedation, and even . I verified the patient has access to naloxone should? these effects occur. I advised the patient to avoid the use of any other? sedation substances including alcohol, THC, and benzodiazepines while? taking opioid medications due to the risk of compounding side effects and? detrimental outcomes. I reviewed the REGIONAL MARKETING DIRECTOR, pain treatment agreement, urine? drug screen, and opioid start talking forms. The patient was advised to let? their family know they had Naloxone in case they would need to administer? the medication.? ?? A drug screen was completed within the last year, and no aberrancies were noted regarding their use of controlled substances. The patient understands they are subject to the terms and conditions of the pain contract that they have signed. ? ?? I have checked an [place]ARRS report on this patient today and there are no aberrancies noted in the prescribing history.? (7) Muscle spasm: (8) Lumbar spondylosis: Plan f/u with NS as planned continue current medications tolerating well without side effect f/u 3 months, sooner if needed
== END 2024-01-25 08:57 | disposition home or self-care (01) ==
LOC: PM 08:59
PROVIDERS: PCP Family Medicine; Visit Provider Nurse Practitioner
DX: M54.16 Radiculopathy, lumbar region (principal); M48.02 Spinal stenosis, cervical region; G62.9 Polyneuropathy, unspecified; M48.062 Spinal stenosis, lumbar region with neurogenic claudication; Z79.891 Long term (current) use of opiate analgesic; M62.838 Other muscle spasm; M47.816 Spondylosis without myelopathy or radiculopathy, lumbar region
CPT/HCPCS: G0463

== ENCOUNTER 2024-03-04 14:13 | Outpatient (OUT) | payer OTHER, MEDICARE, SELFPAY ==
--- NOTE | 2024-03-04 15:14 | PM.CN ---
Consult Note: HPI Data of Consult Patient: known to practice within the last 3 years Consult date: 03/04/24 Requesting Physician: Macey Monterroso MD Primary Care Provider: MALGORZATA LITTLEJOHN Consult Narrative Reason for consult: low back pain Narrative: 64yom who presents for assessment. notes worsening low back pain, similar to pain prior to ablation in 10/2022 that provided significant relief >50% for >6 months. imaging shows multilevel facet arthropathy in lower lumbar spine. continues to engage in a series of provider directed home exercises >6 weeks, without benefit. uses gabapentin and diclofenac. denies adverse med side effects. cc:: CC: Macey Monterroso MD Review of Systems ROS Status of ROS 10 or more systems reviewed and unremarkable except as noted in history and below [facility] Medical History Osteoarthritis ?M19.90 - Unspecified osteoarthritis, unspecified site (ICD-10) Diabetes ?E11.9 - Type 2 diabetes mellitus without complications (ICD-10) HTN (hypertension) ?I10 - Essential (primary) hypertension (ICD-10) High cholesterol ?E78.00 - Pure hypercholesterolemia, unspecified (ICD-10) Surgical History History of arthroscopy of knee ?Z98.890 - Other specified postprocedural states (ICD-10) History of knee replacement ?Z96.659 - Presence of unspecified artificial knee joint (ICD-10) History of hernia repair ?Z98.890 - Other specified postprocedural states (ICD-10) ?Z87.19 - Personal history of other diseases of the digestive system (ICD-10) Meds Home Medications and Allergies Home Medications ?Medication ?Instructions ?Recorded ?Confirmed ?Type amlodipine 10 mg tablet 10 mg PO DAILY 12/08/22 01/08/24 History lisinopril 20 1 tab PO DAILY 12/08/22 01/08/24 History mg-hydrochlorothiazide 12.5 mg tablet lovastatin 10 mg tablet 10 mg PO DAILY 12/08/22 01/08/24 History metformin 1,000 mg tablet 1,000 mg PO BID 12/08/22 01/08/24 History potassium chloride 10 mEq 10 meq PO DAILY 12/08/22 01/08/24 History tablet,extended release (K-Tab) gabapentin 600 mg tablet 600 mg PO QID 06/15/23 01/08/24 History cholecalciferol (vitamin D3) 50 50 mcg PO DAILY 09/21/23 01/08/24 History mcg (2,000 unit) capsule (D3-2000) diclofenac sodium 100 mg 100 mg PO BID 09/21/23 01/08/24 History tablet,extended release 24 hr empagliflozin 25 mg tablet 25 mg PO DAILY 09/21/23 01/08/24 History (Jardiance) metaxalone 800 mg tablet 800 mg PO BID 09/21/23 01/08/24 History multivitamin 1 tab PO DAILY 09/21/23 01/08/24 History tramadol 50 mg tablet 50 mg PO TID PRN pain #90 tabs 12/13/23 01/08/24 Rx tramadol 50 mg tablet 50 mg PO TID PRN pain #90 tabs 02/16/24 Rx diclofenac sodium 75 mg 75 mg PO BID PRN pain #60 tabs 02/26/24 Rx tablet,delayed release Allergies Allergy/AdvReac Type Severity Reaction Status Date / Time No Known Drug Allergies Allergy Verified 04/03/23 08:24 Exam Narrative Exam Narrative: Psych-alert and oriented x 3. Attentive and appropriate, constitutionally normal, displays normal mood and affect per situation.? There are no obvious deficits in memory, reasoning, or intellect.? Skin-no obvious rashes, bruising, erythema noted to the patient's area of pain. Extremities- extremities are warm with minimal edema and palpable pulses. Lumbar-no significant tenderness to palpation noted in the lumbar spine and paraspinal musculature.? Pain is elicited with extension, and lateral rotation of the lumbar spine. Range of motion is slightly diminished with these motions due to pain. Facet loading maneuvers are positive bilaterally and do appear to be concordant with the patient's normal complaints of pain.? Coordination remains intact.? Gait remains non-antalgic. Assessment and Plan Assessment and Plan (1) Lumbar spondylosis: Plan 64yom who presents for assessment. failed conservative measures, as noted. imaging reviewed, as noted. given symptoms and imaging, coupled with previous relief, prudent to attempt bilateral l4-5, l5-s1 rfa under fluoroscopic guidance. he is in agreement. meds reviewed, no changes. follow up after procedure.
== END 2024-03-04 14:14 | disposition home or self-care (01) ==
LOC: PM 14:13
PROVIDERS: PCP Family Medicine; Visit Provider Anesthesiology
DX: M47.816 Spondylosis without myelopathy or radiculopathy, lumbar region (principal)
CPT/HCPCS: G0463

== ENCOUNTER 2024-03-25 07:01 | Day surgery (SDC) | payer OTHER, MEDICARE, SELFPAY ==
--- OUTSIDE RECORDS SUMMARY | 2024-03-25 07:05 | XMS_ITS | CCD ---
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 Name Role Phone LAKSHMIPATHY ., NARENDRANATH Consulting [...] FURLONG, DR WALTER Toney Primary Care Unavailable MARR ., DR ABDOULAYE Lundy Attending [...] FURLONG, DR WALTER Toney Primary Care Unavailable [place], DR GUILLERMO Braun Consulting Unavailable TOPHER, DAY Consulting Unavailable LAKSHMIPATHY ., CRISTHIANENDLAURA Attending Olga vailable WEST, DR GUILLERMO Braun Consulting Unavailable FURLONG, DR WALTER Toney Primary Care Unavailable LAKSHMIPATHY ., CRISTHIANENDRANATH Admitting Olga vailable LAKSHMIPATHY ., CRISTHIANENDRANATH Consulting Olga vailable TOPHER, DAY Attending Unavailable RODGER, DR WILL Guerrero Consulting Unavailable FURLONG, DR WALTER Toney Primary Care Unavailable TOPHER, DAY Admitting Unavailable TOPHER, DAY Consulting Unavailable LAKSHMIPATHY ., CRISTHIANENDRUSSELLATH Attending Olga vailable LAKSHMIPATHY ., NARENDRUSSELLATH Admitting Olga vailable FURLONG, DR WALTER Toney Primary Care Unavailable ZIEBERDR WILL Consulting Unavailable LAKSHMIPATHY ., CRISTHIANENDRANATH Consulting Olga vailable LAKSHMIPATHY ., NARENDRANATH Attending Olga vailable LAKSHMIPATHY ., NARENDRANATH Admitting Olga vailable HALKER .LAURA Consulting Unavailable FURLONG, DR WALTER Toney Primary Care Unavailable TOPHER, DAY L Primary Care Unavailable CUAUHTEMOC YODER Referring Unavailable Furlong Walter MOY Primary Care Provider [phone] Topher POULTRY PROCESSOR - [facility], Day Squires Primary Care Provider Topher POULTRY PROCESSOR[employer], Day Primary Care Provider MIKE TOWNSEND Attending Unavailable MIKE TOWNSEND Referring Unavailable TOPHER, DAY L Primary Care Unavailable JACKS, BETHANY W Referring Unavailable TOPHER, DAY L Primary Care Unavailable BETHANY HWANG W Referring Unavailable TOPHER, DAY L Primary [...] Unavailable TOPHER, DAY L Primary Care Unavailable Macey Monterroso MD Attending Unavailable Loc ANDERSON, Macey Rivas Attending Unavailable Loc ANDERSON, Macey Rivas Attending Unavailable Loc ANDERSON, Macey Rivas Attending Unavailable Medications Current Medications Medication Drug Class(es) Dates Sig (Normalized) Sig (Original) acetaminophen 325 mg / oxyCODONE hydrochloride 5 mg oral tablet (1 source) Opioid Agonist Start: 07-31-2023 End: 08-07-2023 oxyCODONE-acetam inophen (PERCOCET) 5-325 MG per tablet Indications: Stenosis [...] Nucleoside Analog DNA Polymerase Inhibitor Start: 12-30-2022 acyclovir-hydroc ortisone (XERESE) 5-1 % cream Apply 1 Application topically 5 (five) times a day. 5 g 1 12/30/2022 Active amLODIPine 10 mg oral tablet (11 sources) Dihydropyridine Calcium Channel Reji Start: 12-18-2023 take 1 tablet by mouth in the morning amLODIPine (NORVASC) 10 mg tablet TAKE 1 TABLET(10 MG) BY MOUTH IN THE MORNING 90 tablet 12/18/2023 Active Start: 01-20-2023 End: 08-22-2023 take 1 tablet by mouth once daily amLODIPine (NORVASC) 10 MG tablet Take 1 tablet by mouth daily 0 04/20/2023 Active baclofen 10 mg oral tablet (5 sources) gamma-Aminobutyric Acid-ergic Agonist take 1 tablet by mouth once daily baclofen (LIORESAL) 10 mg tablet Take 1 tablet (10 mg total) by mouth nightly. Active ciclopirox 10 mg/ml medicated shampoo (4 sources) apply 5-10 mL topically two times weekly ciclopirox (LOPROX) 1 % shampoo ciclopirox 1 % shampoo APPLY 5 - 10 MILLILITERS TO WET HAIR BY TOPICAL ROUTE TWICE WEEKLY WITH AT LEAST 3 DAYS BETWEEN EACH SHAMPOOING 0 Active cyclobenzaprine hydrochloride 10 mg oral tablet (7 sources) Muscle Relaxant Start: 2023 End: 2023 cyclobenzaprine (FLEXERIL) tablet 10 mg Start: 09-01-2022 take 1 tablet by jacques every eight hours as needed cyclobenzaprine (FLEXERIL) 10 mg tablet Take 1 tablet (10 mg total) by mouth every 8 (eight) hours as needed for muscle spasms. 30 tablet 1 09/01/2022 Active diclofenac sodium 50 mg delayed release oral tablet (9 sources) Nonsteroidal Anti-inflammatory Drug Start: 10-12-2023 take 2 tablets by mouth twice daily diclofenac (VOLTAREN) 50 mg EC tablet TAKE 2 TABLETS BY MOUTH TWICE DAILY 10/12/2023 Active Start: 04-21-2022 take 1 tablet by jacques every four hours as needed for pain diclofenac (VOLTAREN) 75 MG EC tablet Take 1 tablet by mouth every 4 hours as needed for Pain 0 05/02/2023 Active empagliflozin 25 mg oral tablet (11 sources) Sodium-Glucose Cotransporter 2 Inhibitor Start: 03-30-2023 End: 03-14-2024 take 1 tablet by mouth in the morning JARDIANCE 25 mg tablet tablet TAKE 1 TABLET(25 MG) BY MOUTH IN THE MORNING 90 tablet 1 03/14/2024 Active Start: 03-30-2023 take 2 tablets by mo [facility] once daily empagliflozin (JARDIANCE) 10 MG tablet [...] 20 mg gabapentin 300 mg oral capsule (13 sources) Anti-epileptic Agent Start: 07-31-2023 gabapenti n (NEURONTIN) capsule 600 mg Start: 06-19-2023 take 1 tablet by jacques th four times daily gabapentin (NEURONTIN) 600 mg tablet TAKE 1 TABLET BY MOUTH FOUR TIMES DAILY 06/19/2023 Active Start: 05-03-2023 End: 07-31-2023 take 300 mg by mouth every four hours as needed 300 mg, Oral, EVERY 4 HOURS PRN, Starting on 07/28/23 at 1723, Until 07/30/23 at 1306, as needed for numbness/tingling., Post-op Start: 06-27-2022 take 1 capsule by mo [facility] once daily gabapentin (NEURONTIN) 100 mg capsule [...] mg / lisinopril 20 mg oral tablet (10 sources) Thiazide Diuretic, Angiotensin Converting Enzyme Inhibitor Start: 12-01-2023 take 2 tablets by mouth once daily lisinopril-hydroCHLOROthiazide (PRINZIDE,ZESTORETIC) 20-12.5 mg per tablet TAKE 2 TABLETS BY MOUTH EVERY DAY 90 tablet 1 12/01/2023 Active Start: 04-21-2023 End: 08-22-2023 take 2 tablets [...] Angiotensin Converting Enzyme Inhibitor Start: 07-28-2023 lisinopril (PRINIVIL;ZESTRIL) tablet 40 mg lovastatin 10 mg oral tablet (10 sources) HMG-CoA Reductase Inhibitor Start: 04-21-2023 End: 08-22-2023 take 1 tablet by mouth in the morning lovastatin (MEVACOR) 10 mg tablet TAKE 1 TABLET(10 MG) BY MOUTH IN THE MORNING 90 tablet 1 08/22/2023 Active metaxalone 800 mg oral tablet (7 [...] Active metFORMIN hydrochloride 500 mg oral tablet (8 sources) Biguanide Start: 02-13-2024 take 2 tablets by mouth once daily in the morning, then take 2 tablets by mouth once daily at mealtime metFORMIN (GLUCOPHAGE) 500 mg tablet TAKE 2 TABLETS BY MOUTH EVERY MORNING AND 2 TABLETS EVERY EVENING WITH MEALS 360 tablet 02/13/2024 Active Start: 06-01-2023 take 2 tablets by mo [facility] once daily in the morning metFORMIN (GLUCOPHAGE) [...] Active metoprolol tartrate 25 mg oral tablet (12 sources) beta-Adrenergic Reji Start: 12-01-2023 take 0.5 tablet by mouth in the morning, then take 0.5 tablet by mouth at bedtime metoprolol tartrate (LOPRESSOR) 25 mg tablet Take 0.5 tablets (12.5 mg total) by mouth in the morning and 0.5 tablets (12.5 mg total) before bedtime. 90 tablet 1 12/01/2023 Active Start: 08-22-2023 End: 08-25-2023 take 0.5 tablet [...] nasal spray (4 sources) Opioid Antagonist Start: 10-14-19 23 naloxone (NARCAN) 4 mg/actuation spray,non-aerosol nasal spray CALL 911. SPR CONTENTS OF ONE SPRAYER (0.1ML) INTO ONE NOSTRIL. REPEAT IN 2-3 MIN IF SYMPTOMS OF OPIOID EMERGENCY PERSIST, ALTERNATE NOSTRILS 0 10/13/2022 Active oxyCODONE (1 source) Opioid Agonist Start: 07-28-19 24 oxyCODONE (ROXICODONE) immediate release tablet 5 mg phentermine hydrochloride 37.5 mg oral capsule (1 source) Sympathomimetic Amine Anorectic Start: 12-28-19 24 take 32-32.9 capsules by mouth once daily in the morning phentermine 37.5 MG capsule Indications: Class 1 obesity due to excess calories with serious comorbidity and body mass index (BMI) of 32.0 to 32.9 in adult Take 1 capsule (37.5 mg total) by mouth every morning. 30 capsule 12/28/2023 Active potassium chloride 10 meq extended release oral tablet (7 sources) Start: 10-17-19 potassium chloride (K-TAB,KLOR-CON) 10 MEQ CR tablet take 1 tablet by mouth daily 90 tablet 1 10/17/2023 Active Start: 07-28-2023 10 mEq, Oral, DAILY, First dose on Mon07/28/23 at 1745, Until Discontinued Do not crush or break. Post-op Start: 04-21-2023 End: 07-20-2023 take 1 tablet by mouth once daily potassium chloride (KLOR-CON) 10 MEQ extended release tablet Take 1 tablet by mouth daily 0 04/21/2023 Active traMADol hydrochloride 50 mg oral tablet (9 sources) Opioid Agonist Start: 04-08-2019 End: 07-27-2023 traMADol (ULTRAM) 50 mg tablet 04/08/2019 Active take 1 tablet by jacques th [...] mins. Post-op cholecalciferol 0.025 mg oral tablet (11 sources) Vitamin D Start: 07-28-2023 take 2000 [IU] by mouth once daily 2,000 Units, Oral, DAILY, First dose on Mon07/28/23 at 1800, Until Discontinued, Post-op take 4 capsules by m outh in the morning cholecalciferol, vitamin D3, 1,000 unit capsule Take 4 capsules (4,000 Units total) by mouth in the morning. Active Cholecalciferol (VITAMIN D3) 50 MCG (2000 UT) CAPS Take 50 capsules by mouth daily 0 Active End: 07-10-2023 take 1 capsule [...] E) injection 5 mg polyethylene glycol 3350 36036 mg powder for oral solution (1 source) Osmotic Laxative Start: 07-28-2023 17 g, Oral, DAILY, First dose on Mon07/28/23 at 1745, Until Discontinued, Post-op sennosides, long term 8.6 mg oral tablet (1 source) Start: [...] Da te Episodic/Chronic Diabetes mellitus without complication (14 sources) Type 2 diabetes mellitus without complications; Translations: [Type 2 diabetes mellitus] Onset: 07-19-2019 02-25-2022 Chronic Disorders of lipid metabolism (10 sources) Hyperlipidemia; Translations: [Other hyperlipidemia] Onset: 03-27-2019 03-27-2019 Chronic Essential hypertension (17 sources) Essential hypertension; Translations: [Essential (primary) hypertension] Onset: 03-27-2019 Resolved: 07-01-2022 03-27-2019 Chronic Nutritional deficiencies (5 sources) Vitamin D deficiency; Translations: [Vitamin D deficiency, unspecified] Onset: 02-25-2022 02-25-2022 Chronic Osteoarthritis (11 sources) Unilateral primary osteoarthritis, right knee; Translations: [...] Episodic Other nutritional; endocrine; and metabolic disorders (5 sources) High density lipoprotein deficiency ; Translations: [Lipoprotein deficiency] Onset: 08-31-2017 02-25-2022 Chronic Other nutritional; endocrine; and metabolic disorders (5 sources) Obesity; Translations: [Obesity, unspecified] Onset: 04-12-2016 [...] Da te Episodic/Chronic Fluid and electrolyte disorders (5 sources) Hypokalemia; Translations: [Hypokalemia] Onset: 02-25-2022 02-25-2022 Episodic Mood disorders (5 sources) Mood disorders Onset: 03-30-2023 Resolved: 12-28-2023 03-30-2023 Other bone disease and musculoskeletal deformities (5 sources) Somatic dysfunction of thoracic region; Translations: [Segmental and somatic dysfunction of thoracic region] Onset: 09-01-2022 09-01-2022 Episodic Other bone disease and musculoskeletal deformities (1 source) Segmental and somatic dysfunction of thoracic region; Translations: [Segmental and somatic dysfunction of thoracic region] Onset: 09-01-2022 Episodic Other non-traumatic joint disorders (10 sources) Pain in left knee; Translations: [Pain in joint, lower leg] Onset: 09-17-2018 09-17-2018 Episodic Other screening for suspected conditions (not mental disorders or infectious disease) (5 sources) Other specified abnormal findings of blood chemistry; Translations: [Other abnormal blood chemistry] Onset: 03-30-2023 03-30-2023 Episodic Screening and history of mental health and substance abuse codes (9 sources) Personal history of nicotine dependence; Translations: [...] pronounced at L3-4 to a severe degree. [facility] RIS CONSOLIDATED EXAMINATION: TWO XRAY VIEWS SCOLIOSIS [...] intact. The paravertebral soft tissues are unremarkable. [facility] Blake Sneed MD - 11/29/2023 EXAMINATION: TWO [...] pronounced at L3-4 to a severe degree. [employer] No Panel InformationOrdered By: Blake Hale on 11-29-2023 [employer] Work Phone: XR LUMBAR SPINE FLEXION AND [...] Blake Hale MD 11/29/23 Final result Normal [facility] XR SPINE ENTIRE (2-3 VIEWS)o [...] Blake Hale MD 11/29/23 Final result Normal [facility] No Panel Informationon 11-26 Radiology Study observation (narrative) [facility] XR CERVICAL SPINE (2-3 VIEWS )on 11-27-2023 [...] Martinez Kelly MD 11/27/23 Final result Normal [facility] XR CERVICAL SPINE (2-3 VIEWS )on [...] Cortez Peralta DO 09/24/23 Final result Normal [facility] Basic Metab w/rfx MGon 07-31 Anion gap [Moles/Vol] 11 mmol/L Normal 9-17 [facility] Comment on above: Performed By: #### T YS #### [address] [address] Art Director: Kan Craig MD Calcium [Mass/Vol] 9.0 mg/dL Normal 8.6-10.4 [facility] Comment on above: Performed By: #### T YS #### [address] [address] Art Director: Kan Craig MD Chloride [Moles/Vol] 98 mmol/L Normal 98-107 [facility] Comment on above: Performed By: #### T YS #### [address] [address] Art Director: Kan Craig MD CO2 [Moles/Vol] 24 mmol/L Normal 20-31 [facility] Comment on above: Performed By: #### T YS #### [address] [address] Art Director: Kan Craig MD Creatinine [Mass/Vol] 0.6 mg/dL Low 0.7-1.2 [facility] Comment on above: Performed By: #### T YS #### [address] [address] Art Director: Kan Craig MD GFR/1.73 sq M.predicted among non-blacks MDRD (S/P/Bld) [Vol rate/Area] mL/min/{1.73_m2} Normal >60 [facility] Comment on above: Result Comment: [...] secretion. Performed By: #### T YS #### [facility] [address] [place] [id number] Art Director: Kan Craig MD Glucose [Mass/Vol] 155 mg/dL High 70-99 [facility] Comment on above: Performed By: #### T YS #### [facility] [address] [place] [address] Art Director: Kan Craig MD Potassium [Moles/Vol] 3.7 mmol/L Normal 3.7-5.3 [facility] Comment on above: Performed By: #### T YS #### [facility] [address] [place] [id number] Art Director: Kan Craig MD Sodium [Moles/Vol] 133 mmol/L Low 135-144 [facility] Comment on above: Performed By: #### T YS #### [facility] [address] [place] [id number] Art Director: Kan Craig MD Urea nitrogen [Mass/Vol] 14 mg/dL Normal 8-23 [facility] Comment on above: Performed By: #### T YS #### [facility] [address] [place] [id number] Art Director: Kan Craig MD Basic Metabolic Panel w/ Ref analisa to MGon 07-31-2023 Anion gap [Moles/Vol] 11 mmol/L 9 - 17 mmol/L [facility] Calcium [Mass/Vol] 9.0 mg/dL 8.6 - 10. 4 mg/dL [facility] Chloride [Moles/Vol] 98 mmol/L 98 - 10 7 mmol/L [facility] CO2 [Moles/Vol] 24 mmol/L 20 - 31 mmol/L [facility] Creatinine [Mass/Vol] 0.6 mg/dL Low 0.7 - 1.2 mg/dL [facility] GFR/1.73 sq M.predicted MDRD (S/P/Bld) [Vol rate/Area] - PINF [facility] Comment on above: These results are not [...] 155 mg/dL High 70 - 99 mg/dL [facility] Potassium [Moles/Vol] 3.7 mmol/L 3.7 - 5.3 mmol/L [facility] Sodium [Moles/Vol] 133 mmol/L Low 135 - 144 mmol/L [facility] Urea nitrogen [Mass/Vol] 14 mg/dL 8 - 23 mg/dL [facility] CBC with Auto Differentialon 07-31-2023 Basophils (Bld) [#/Vol] 0.09 10*3/uL [facility] Basophils/100 WBC (Bld) 1 % 0 - 2 % [facility] Eosinophils (Bld) [#/Vol] 0.09 10*3/uL [facility] Eosinophils/100 WBC (Bld) 1 % 1 - 4 % [facility] Erythrocyte distribution width (RBC) [Ratio] 11.9 % 11.8 - 14.4 % [facility] Hematocrit (Bld) [Volume fraction] 45.5 % 40.7 - 50.3 % [facility] Hemoglobin (Bld) [Mass/Vol] 15.3 g/dL 13.0 - 17.0 g/dL [facility] Immature granulocytes (Bld) [#/Vol] [facility] Immature granulocytes/100 WBC (Bld) 0 % 0 [facility] Interpretation and review of laboratory results Abnormal [facility] Lymphocytes/100 WBC (Bld) 22 % Low 24 - 43 % [facility] Lymphocytes/100 WBC (Bld) 1.89 % [facility] MCH (RBC) [Entitic mass] 31.3 pg 25.2 - 33.5 pg [facility] MCHC (RBC) [Mass/Vol] 33.6 g/dL 28.4 - 34.8 g/dL [facility] MCV (RBC) [Entitic vol] 93.0 fL 82.6 - 102.9 fL [facility] Monocytes/100 WBC (Bld) 11 % 3 - 12 % [facility] Monocytes/100 WBC (Bld) 0.96 % [facility] Neutrophils/100 WBC (Bld) 65 % 36 - 65 % [facility] Nucleated RBC/100 WBC (Bld) [Ratio] 0.0 % 0.0 per 100 WBC [facility] Platelet mean volume (Bld) [Entitic vol] 10.6 fL 8.1 - 13.5 fL [facility] Platelets (Bld) [#/Vol] 234 10*3/uL [facility] RBC (Bld) [#/Vol] 4.89 10*6/uL 4.21 - 5.7 7 m/uL [facility] Segmented neutrophils/100 WBC (Bld) 5.57 % [facility] WBC other (Bld) [#/Vol] 8.6 [facility] CBC with Diffon 07-31-2023 Abs. Basophil 0.09 k/uL Normal 0.00-0.20 [facility] Comment on above: Performed By: #### T YS #### [employer] [address] [place] [id number] Art Director: Kan Craig MD Abs.Imm.Granulocyte <0.03 Normal 0.00-0.30 [facility] Comment on above: Performed By: #### T YS #### [facility] [address] [place], [place] [phone] Art Director: Kan Craig MD Abs.Neutrophil (Seg) 5.57 k/uL Normal 1.50-8.10 [facility] Comment on above: Performed By: #### T YS #### [address] [address] Art Director: Kan Craig MD Basophils/100 WBC (Bld) 1 % Normal 0-2 [facility] Comment on above: Performed By: #### T YS #### [address] [address] Art Director: Kan Craig MD Eosinophils (Bld) [#/Vol] 0.09 10*3/uL Normal 0.00-0.44 [facility] Comment on above: Performed By: #### T YS #### [address] [address] Art Director: Kan Craig MD Eosinophils/100 WBC (Bld) 1 % Normal 1-4 [facility] Comment on above: Performed By: #### T YS #### [address] [address] Art Director: Kan Craig MD Erythrocyte distribution width (RBC) [Ratio] 11.9 % Normal 11.8-14.4 [facility] Comment on above: Performed By: #### T YS #### [address] [address] Art Director: Kan Craig MD Hematocrit (Bld) [Volume fraction] 45.5 % Normal 40.7-50.3 [facility] Comment on above: Performed By: #### T YS #### [address] [address] Art Director: Kan Craig MD Hemoglobin (Bld) [Mass/Vol] 15.3 g/dL Normal 13.0-17.0 [facility] Comment on above: Performed By: #### T YS #### [address] [address] Art Director: Kan Craig MD Immature granulocytes/100 WBC (Bld) 0 % Normal 0 [facility] Comment on above: Performed By: #### T YS #### [address] [address] Art Director: Kan Craig MD Lymphocytes (Bld) [#/Vol] 1.89 10*3/uL Normal 1.10-3.70 [facility] Comment on above: Performed By: #### T YS #### [address] [address] Art Director: Kan Craig MD Lymphocytes/100 WBC (Bld) 22 % Low 24-43 [facility] Comment on above: Performed By: #### T YS #### [address] [address] Art Director: Kan Craig MD MCH (RBC) [Entitic mass] 31.3 pg Normal 25.2-33.5 [facility] Comment on above: Performed By: #### T YS #### [address] [address] Art Director: Kan Craig MD MCHC (RBC) [Mass/Vol] 33.6 g/dL Normal 28.4-34.8 [facility] Comment on above: Performed By: #### T YS #### [address] [address] Art Director: Kan Craig MD MCV (RBC) [Entitic vol] 93.0 fL Normal 82.6-102.9 [facility] Comment on above: Performed By: #### T YS #### [address] [address] Art Director: Kan Craig MD Monocytes (Bld) [#/Vol] 0.96 10*3/uL Normal 0.10-1.20 [facility] Comment on above: Performed By: #### T YS #### [address] [address] Art Director: Kan Craig MD Monocytes/100 WBC (Bld) 11 % Normal 3-12 [facility] Comment on above: Performed By: #### T YS #### [address] [address] Art Director: Kan Craig MD Neutrophil (Seg) 65 % Normal 36-65 [facility] Comment on above: Performed By: #### T YS #### [address] [address] Art Director: Kan Craig MD NRBC Automated 0.0 per 100 WBC Normal 0.0 [facility] Comment on above: Performed By: #### T YS #### [address] [address] Art Director: Kan Craig MD Platelet mean volume (Bld) [Entitic vol] 10.6 fL Normal 8.1-13.5 [facility] Comment on above: Performed By: #### T YS #### [address] [address] Art Director: Kan Craig MD Platelets (Bld) [#/Vol] 234 10*3/uL Normal 138-453 [facility] Comment on above: Performed By: #### T YS #### [address] [address] Art Director: Kan Craig MD RBC (Bld) [#/Vol] 4.89 10*6/uL Normal 4.21-5.77 [facility] Comment on above: Performed By: #### T YS #### [facility] [address] [place], [place] [id number] Art Director: Kan Craig MD WBC (Bld) [#/Vol] 8.6 10*3/uL Normal 3.5-11.3 [facility] Comment on above: Performed By: #### T YS #### [facility] [address] [place], [place] [id number] Art Director: Kan Craig MD EKG 12 LeadOrdered By: Froilan Hartmann on 07-31-2023 Atrial Rate 114 BPM [employer] Work Phone: P [place] 48 degrees [employer] Work Phone: P-R Interval 168 ms [employer] Work Phone: Q-T Interval 316 ms [employer] Work Phone: QRS Duration 86 ms [employer] Work Phone: QTc Calculation (Bazett) 435 ms [employer] Work Phone: R [place] -37 degrees [employer] Work Phone: T [place] 37 degrees [employer] Work Phone: Ventricular Rate 114 BPM [facility] [employer] Work Phone: [employer] Work Phone: EKG 12 Leadon 07-31-2023 Sinus [...] Vent. rate has increased BY 44 BPM [facility] Glucose,Whole Bloodon 2023 Glucose [Mass/Vol] 177 mg/dL High 75-110 [facility] Glucose [Mass/Vol] 166 mg/dL High 75-110 [facility] Lipid Panelon 07-31-2023 Cholesterol [Mass/Vol] 141 mg/dL NINF - 200 mg/dL [facility] Comment on above: Cholesterol Guidelines: <200 Desirable 200-240 Borderline >240 Undesirable Cholesterol in HDL [Mass/Vol] 34 mg/dL Low 40 - PINF mg/dL [facility] Comment on above: HDL Guidelines: <40 Undesirable 40-59 Borderline >59 Desirable Cholesterol in LDL [Mass/Vol] 73 mg/dL 0 - 130 mg/dL [facility] Comment on above: LDL Guidelines: <100 Desirable 100-129 Near to/above Desirable 130-159 Borderline >159 Undesirable Direct (measured) LDL and calculated LDL are not interchangeable tests. Cholesterol.total/Chol esterol in HDL [Mass ratio] 4.1 {ratio} NINF - 5 [facility] Triglyceride [Mass/Vol] 169 mg/dL High NINF - 150 mg/dL [facility] Comment on above: Triglyceride Guidelines: <150 Desirable 150-199 Borderline 200-499 High >499 Very high Based on AHA Guidelines for fasting triglyceride, March 2012. Lipid Profileon 07-31-2023 Cholesterol [Mass/Vol] 141 mg/dL Normal <200 [facility] Comment on above: Result Comment: Cholesterol Guidelines: <200 Desirable 200-240 Borderline >240 Undesirable Performed By: #### T YS #### [employer] [address] [place] [id number] Art Director: Kan Craig MD Cholesterol in HDL [Mass/Vol] 34 mg/dL Low >40 [facility] Comment on above: Result Comment: HDL Guidelines: <40 Undesirable 40-59 Borderline >59 Desirable Performed By: #### T YS #### [employer] [address] [place] [id number] Art Director: Kan Craig MD Cholesterol in LDL [Mass/Vol] 73 mg/dL Normal 0-130 [facility] Comment on above: Result Comment: LDL Guidelines: <100 Desirable 100-129 Near to/above Desirable 130-159 Borderline >159 Undesirable Direct (measured) LDL and calculated LDL are not interchangeable tests. Performed By: #### T YS #### [address] [address] [place], [place] [id number] Art Director: Kan Craig MD Cholesterol.total/Chol esterol in HDL [Mass ratio] 4.1 {ratio} Normal <5 [facility] Comment on above: Performed By: #### T YS #### [address] [address] [place], [place] [id number] Art Director: Kan Craig MD Triglyceride [Mass/Vol] 169 mg/dL High <150 [facility] Comment on above: Result Comment: Triglyceride Guidelines: <150 Desirable 150-199 Borderline 200-499 High >499 Very high Based on AHA Guidelines for fasting triglyceride, March 2012. Performed By: #### T YS #### [address] [address] [place], [place] [id number] Art Director: Kan Craig MD No Panel Informationon 07-31 Interpretation and review of laboratory results Abnormal [facility] POC Glucose Fingerstickon Glucose [Mass/Vol] 177 mg/dL High 75 - 110 mg/dL [facility] Interpretation and review of laboratory results Abnormal [facility] Glucose [Mass/Vol] 166 mg/dL High 75 - 110 mg/dL [facility] Interpretation and review of laboratory results Abnormal [facility] CT CHEST PULMONARY EMBOLISM W CONTRASTon 07-30-2023 [...] Adan Hodges MD 07/30/23 Final result Normal [facility] 1. No evidence of pulmonary embolism or acute pulmonary abnormality. 2. Three-vessel coronary artery calcification. [facility] EXAMINATION: CTA OF THE CHEST 07/30/2023 [...] No acute bone or soft tissue abnormality. [facility] Adan Hodges MD - 07/30/2023 EXAMINATION: [...] pulmonary abnormality. 2. Three-vessel coronary artery calcification. [facility] [employer] Radiology Study observation (narrative) [facility] [employer] CT CHEST PULMONARY EMBOLISM W CONTRASTOrdered By: Adan Hodges on 07-30-2023 [facility] [employer] Work Phone: Glucose,Whole Bloodon 2023 Glucose [Mass/Vol] 167 mg/dL High 75-110 [facility] Glucose [Mass/Vol] 149 mg/dL High 75-110 [facility] Glucose [Mass/Vol] 153 mg/dL High 75-110 [facility] Glucose [Mass/Vol] 142 mg/dL High 75-110 [facility] Hemoglobin A1Con 07-30-2023 Average glucose Estimated from glycated hemoglobin (Bld) [Mass/Vol] 137 mg/dL [facility] [email or web address] Comment on above: The ADA and AACC rec ommend providing the estimated average glucose result to permit better patient understanding of their HBA1c result. HbA1c (Bld) [Mass fraction] 6.4 % High 4.0 - 6.0 % [facility] Interpretation and review of laboratory results Abnormal [facility] Glucose [Mass/Vol] 137 mg/dL Normal [facility] Comment on above: Result Comment: The ADA and AACC recommend providing the estimated average glucose result to permit better patient understanding of their HBA1c result. Performed By: #### B MPX CDP, GLYHGB ####[facility] [address] [place], [place] [id number] Lab Director: Kan Craig MD HbA1c (Bld) [Mass fraction] 6.4 % High 4.0-6.0 [facility] Comment on above: Performed By: #### B MPX, CDP, GLYHGB ####[facility] [address] [place], [place] [id number] lab Director: Kan Craig MD POC Glucose Fingerstickon Glucose [Mass/Vol] 167 mg/dL High 75 - 110 mg/dL [facility] Interpretation and review of laboratory results Abnormal [facility] Glucose [Mass/Vol] 149 mg/dL High 75 - 110 mg/dL [facility] Interpretation and review of laboratory results Abnormal [facility] Glucose [Mass/Vol] 153 mg/dL High 75 - 110 mg/dL [facility] Interpretation and review of laboratory results Abnormal [facility] Glucose [Mass/Vol] 142 mg/dL High 75 - 110 mg/dL [facility] Interpretation and review of laboratory results Abnormal [facility] Basic Metab w/rfx MGon 07-29 Anion gap [Moles/Vol] 11 mmol/L Normal 9-17 [facility] Comment on above: Performed By: #### T YS #### [facility] [address] [place], [place] [id number] Art Director: Kan Craig MD Calcium [Mass/Vol] 8.5 mg/dL Low 8.6-10.4 [facility] Comment on above: Performed By: #### T YS #### [facility] [address] [place] [address] Art Director: Kan Craig MD Chloride [Moles/Vol] 105 mmol/L Normal 98-107 [facility] Comment on above: Performed By: #### T YS #### [facility] [address] [place] [address] Art Director: Kan Craig MD CO2 [Moles/Vol] 21 mmol/L Normal 20-31 [facility] Comment on above: Performed By: #### T YS #### [address] [address] Art Director: Kan Craig MD Creatinine [Mass/Vol] 0.8 mg/dL Normal 0.7-1.2 [facility] Comment on above: Performed By: #### T YS #### [address] [address] Art Director: Kan Craig MD GFR/1.73 sq M.predicted among non-blacks MDRD (S/P/Bld) [Vol rate/Area] mL/min/{1.73_m2} Normal >60 [facility] Comment on above: Result Comment: [...] secretion. Performed By: #### T YS #### [address] [address] Art Director: Kan Craig MD Glucose [Mass/Vol] 146 mg/dL High 70-99 [facility] Comment on above: Performed By: #### T YS #### [facility] [address] [place] [address] Art Director: Kan Craig MD Potassium [Moles/Vol] 4.4 mmol/L Normal 3.7-5.3 [facility] Comment on above: Performed By: #### T YS #### [facility] [address] [place] [address] Art Director: Kan Craig MD Sodium [Moles/Vol] 137 mmol/L Normal 135-144 [facility] Comment on above: Performed By: #### T YS #### [facility] [address] [place] [address] Art Director: Kan Craig MD Urea nitrogen [Mass/Vol] 14 mg/dL Normal 8-23 [facility] Comment on above: Performed By: #### T YS #### [facility] [address] [place] [address] Art Director: Kan Craig MD Basic Metabolic Panel w/ Ref analisa to MGon 07-29-2023 Anion gap [Moles/Vol] 11 mmol/L 9 - 17 mmol/L [facility] [employer] Calcium [Mass/Vol] 8.5 mg/dL Low 8.6 - 10. 4 mg/dL [facility] [employer] Chloride [Moles/Vol] 105 mmol/L 98 - 10 7 mmol/L [facility] [employer] CO2 [Moles/Vol] 21 mmol/L 20 - 31 mmol/L [facility] Creatinine [Mass/Vol] 0.8 mg/dL 0.7 - 1.2 mg/dL [facility] FOR INCURABLESWindPipe [employer] GFR/1.73 sq M.predicted MDRD (S/P/Bld) [Vol rate/Area] - PINF [facility] Comment on above: These results are not [...] 146 mg/dL High 70 - 99 mg/dL [facility] Interpretation and review of laboratory results Abnormal [facility] Potassium [Moles/Vol] 4.4 mmol/L 3.7 - 5.3 mmol/L [facility] Sodium [Moles/Vol] 137 mmol/L 135 - 144 mmol/L [facility] Urea nitrogen [Mass/Vol] 14 mg/dL 8 - 23 mg/dL [facility] CBC with Auto Differentialon 07-29-2023 Basophils (Bld) [#/Vol] 0.06 10*3/uL [facility] Basophils/100 WBC (Bld) 1 % 0 - 2 % [facility] Eosinophils (Bld) [#/Vol] [facility] Eosinophils/100 WBC (Bld) 0 % Low 1 - 4 % [facility] Erythrocyte distribution width (RBC) [Ratio] 12.2 % 11.8 - 14.4 % [facility] Hematocrit (Bld) [Volume fraction] 46.7 % 40.7 - 50.3 % [facility] Hemoglobin (Bld) [Mass/Vol] 15.5 g/dL 13.0 - 17.0 g/dL [facility] Immature granulocytes (Bld) [#/Vol] 0.05 10*3/uL [facility] Immature granulocytes/100 WBC (Bld) 0 % 0 [facility] Interpretation and review of laboratory results Abnormal [facility] Lymphocytes/100 WBC (Bld) 16 % Low 24 - 43 % [facility] Lymphocytes/100 WBC (Bld) 1.94 % [facility] MCH (RBC) [Entitic mass] 31.4 pg 25.2 - 33.5 pg [facility] MCHC (RBC) [Mass/Vol] 33.2 g/dL 28.4 - 34.8 g/dL [facility] MCV (RBC) [Entitic vol] 94.7 fL 82.6 - 102.9 fL [facility] Monocytes/100 WBC (Bld) 10 % 3 - 12 % [facility] Monocytes/100 WBC (Bld) 1.24 % High [facility] Neutrophils/100 WBC (Bld) 73 % High 36 - 65 % [facility] Nucleated RBC/100 WBC (Bld) [Ratio] 0.0 % 0.0 per 100 WBC [facility] Platelet mean volume (Bld) [Entitic vol] 10.8 fL 8.1 - 13.5 fL [facility] Platelets (Bld) [#/Vol] 243 10*3/uL [facility] RBC (Bld) [#/Vol] 4.93 10*6/uL 4.21 - 5.7 7 m/uL [facility] Segmented neutrophils/100 WBC (Bld) 8.89 % High [facility] WBC other (Bld) [#/Vol] 12.2 High [facility] CBC with Diffon 07-29-2023 Abs. Basophil 0.06 k/uL Normal 0.00-0.20 [facility] Comment on above: Performed By: #### T YS #### [facility] [employer] [address] [place] [address] Art Director: Kan Craig MD Abs. Eosinophil <0.03 Normal 0.00-0.44 [facility] Comment on above: Performed By: #### T YS #### [facility] [employer] [address] [place] [address] Art Director: Kan Craig MD Abs.Imm.Granulocyte 0.05 k/uL Normal 0.00-0.30 [facility] Comment on above: Performed By: #### T YS #### [facility] [employer] [address] [place] [address] Art Director: Kan Craig MD Abs.Neutrophil (Seg) 8.89 k/uL High 1.50-8.10 [facility] Comment on above: Performed By: #### T YS #### [address] [address] Art Director: Kan Craig MD Basophils/100 WBC (Bld) 1 % Normal 0-2 [facility] Comment on above: Performed By: #### T YS #### [address] [address] Art Director: Kan Craig MD Eosinophils/100 WBC (Bld) 0 % Low 1-4 [facility] Comment on above: Performed By: #### T YS #### [address] [address] Art Director: Kan Craig MD Erythrocyte distribution width (RBC) [Ratio] 12.2 % Normal 11.8-14.4 [facility] Comment on above: Performed By: #### T YS #### [address] [address] Art Director: Kan Craig MD Hematocrit (Bld) [Volume fraction] 46.7 % Normal 40.7-50.3 [facility] Comment on above: Performed By: #### T YS #### [address] [address] Art Director: Kan Craig MD Hemoglobin (Bld) [Mass/Vol] 15.5 g/dL Normal 13.0-17.0 [facility] Comment on above: Performed By: #### T YS #### [address] [address] Art Director: Kan Craig MD Immature granulocytes/100 WBC (Bld) 0 % Normal 0 [facility] Comment on above: Performed By: #### T YS #### [address] [address] Art Director: Kan Craig MD Lymphocytes (Bld) [#/Vol] 1.94 10*3/uL Normal 1.10-3.70 [facility] Comment on above: Performed By: #### T YS #### [address] [address] Art Director: Kan Craig MD Lymphocytes/100 WBC (Bld) 16 % Low 24-43 [facility] Comment on above: Performed By: #### T YS #### [place] [address] Art Director: Kan Craig MD MCH (RBC) [Entitic mass] 31.4 pg Normal 25.2-33.5 [facility] Comment on above: Performed By: #### T YS #### [place] [address] Art Director: Kan Craig MD MCHC (RBC) [Mass/Vol] 33.2 g/dL Normal 28.4-34.8 [facility] Comment on above: Performed By: #### T YS #### [address] [address] Art Director: Kan Craig MD MCV (RBC) [Entitic vol] 94.7 fL Normal 82.6-102.9 [facility] Comment on above: Performed By: #### T YS #### [place] [address] Art Director: Kan Craig MD Monocytes (Bld) [#/Vol] 1.24 10*3/uL High 0.10-1.20 [facility] Comment on above: Performed By: #### T YS #### [address] [address] Art Director: Kan Craig MD Monocytes/100 WBC (Bld) 10 % Normal 3-12 [facility] Comment on above: Performed By: #### T YS #### [address] [address] Art Director: Kan Craig MD Neutrophil (Seg) 73 % High 36-65 [facility] Comment on above: Performed By: #### T YS #### [address] [address] Art Director: Kan Craig MD NRBC Automated 0.0 per 100 WBC Normal 0.0 [facility] Comment on above: Performed By: #### T YS #### [address] [address] Art Director: Kan Craig MD Platelet mean volume (Bld) [Entitic vol] 10.8 fL Normal 8.1-13.5 [facility] Comment on above: Performed By: #### T YS #### [address] [address] Art Director: Kan Craig MD Platelets (Bld) [#/Vol] 243 10*3/uL Normal 138-453 [facility] Comment on above: Performed By: #### T YS #### [address] [address] Art Director: Kan Craig MD RBC (Bld) [#/Vol] 4.93 10*6/uL Normal 4.21-5.77 [facility] Comment on above: Performed By: #### T YS #### [address] [address] Art Director: Kan Craig MD WBC (Bld) [#/Vol] 12.2 10*3/uL High 3.5-11.3 [facility] Comment on above: Performed By: #### T YS #### [address] [address] Art Director: Kan Craig MD Glucose,Whole Bloodon 2023 Glucose [Mass/Vol] 151 mg/dL High 75-110 [facility] Glucose [Mass/Vol] 174 mg/dL High 75-110 [facility] Glucose [Mass/Vol] 166 mg/dL High 75-110 [facility] Glucose [Mass/Vol] 139 mg/dL High 75-110 [facility] No Panel Informationon 07-29 Radiology Study observation (narrative) [facility] [email or web address] POC Glucose Fingerstickon Glucose [Mass/Vol] 151 mg/dL High 75 - 110 mg/dL [facility] Interpretation and review of laboratory results Abnormal [facility] [email or web address] [facility] Glucose [Mass/Vol] 174 mg/dL High 75 - 110 mg/dL [facility] [email or web address] Interpretation and review of laboratory results Abnormal [facility] Glucose [Mass/Vol] 166 mg/dL High 75 - 110 mg/dL [facility] Interpretation and review of laboratory results Abnormal [facility] Glucose [Mass/Vol] 139 mg/dL High 75 - 110 mg/dL [employer]ilop SL [facility] Interpretation and review of laboratory results Abnormal [facility] Portable XR Chest AP single viewon 07-29-2023 No radiographic evidence of acute cardiopulmonary process. Postop findings. [facility] EXAMINATION: ONE XRAY VIEW OF THE CHEST 07/29/2023 10:57 am COMPARISON: CT chest from 07/27/2023. HISTORY: ORDERING SYSTEM PROVIDED HISTORY: resp eval; postop TECHNOLOGIST PROVIDED HISTORY: resp eval; postop FINDINGS: Overlying ECG monitor leads and neck collar; cervical nina and hardware. Cardiomediastinal shadow unchanged. Lungs/cp angles clear. Probable slight left basilar atelectasis. No consolidation or sizable pleural effusion. Bones unchanged. [facility] Johan Douglas MD - 07/29/2023 [...] evidence of acute cardiopulmonary process. Postop findings. [facility] [employer] Portable XR Chest AP single viewOrdered By: Johan Douglas on 07-29-2023 [facility] [employer] Work Phone: XR CERVICAL SPINE (2-3 [...] See Watt MD 07/29/23 Final result Normal [facility] XR CHEST PORTABLEon 07-29-19 XR [...] Johan Douglas MD 07/29/23 Final result Normal [facility] XR Cervical spine 2 or 3 Vie wson 07-29-2023 Findings consistent with cervicothoracic spinal fusion and postoperative changes as detailed above. Underlying degenerative changes in the cervical spine. [facility] EXAMINATION: 3 XRAY VIEWS OF THE [...] C6-C7. Skin nina along the posterior midline. [facility] See Watt MD - 07/29/2023 EXAMINATION: [...] Underlying degenerative changes in the cervical spine. [facility] XR Cervical spine 2 or 3 Vie wsOrdered By: See Watt on 07-29-2023 [facility] [employer] Work Phone: Calcium, [employer]icon 07-28-2023 Calcium [Moles/Vol] 1.30 mmol/L Normal 1.13-1.33 [facility] Comment on above: Performed By: #### O HP, IOCAL ####[facility] [address] [place], [place] [id number] Lab Director: Kan Craig MD Calcium [Moles/Vol] 1.43 mmol/L High 1.13-1.33 [facility] Comment on above: Performed By: #### O HP, IOCAL, LACTIC ####[facility] [address] [place], [place] [address] lab Director: Kan Craig MD Calcium [Moles/Vol] 1.03 mmol/L Low 1.13-1.33 [facility] Comment on above: Performed By: #### I OCAL, OHP ####[employer] [address] [place], [place] [id number] lab Director: Kan Craig MD Calcium, Ionizedon Calcium.ionized (Bld) [Moles/Vol] 1.30 mmol/L 1.13 - 1.33 mmol/L [facility] Calcium.ionized (Bld) [Moles/Vol] 1.43 mmol/L High 1.13 - 1.33 mmol/L [facility] Calcium.ionized (Bld) [Moles/Vol] 1.03 mmol/L Low 1.13 - 1.33 mmol/L [facility] FLUORO FOR SURGICAL PROCEDUR ESon 07-28-2023 FLUORO FOR SURGICAL PROCEDURES Radiology exam is complete. No Radiologist dictation. Please follow up with ordering provider. Final result Normal [facility] [employer]GICAL [employer] Radiology exam is complete. No Radiologist dictation. Please follow up with ordering provider. Final result Normal [facility] Glucose (POC)on 07-28-2023 Glucose [Mass/Vol] 156 mg/dL High 74-100 [facility] Glucose,Whole Bloodon 2023 Glucose [Mass/Vol] 209 mg/dL High 75-110 [facility] Glucose [Mass/Vol] 200 mg/dL High 75-110 [facility] Glucose [Mass/Vol] 195 mg/dL High 75-110 [facility] Guidance-- during surgeryon 07-28-2023 Radiology exam is complete. No Radiologist dictation. Please follow up with ordering provider. [facility] Radiology exam is complete. No Radiologist dictation. Please follow up with ordering provider. [facility] Lactic Acidon 07-28-2023 Lactic Acid, Whole Blood 1.7 mmol/L 0.7 - 2.1 mmol/L [facility] Lactic Acid,Whole Bl 1.7 mmol/L Normal 0.7-2.1 [facility] Comment on above: Performed By: #### O HP, IOCAL, LACTIC ####[facility] [id number] [place] [id number] [facility] Director: Kan Craig MD No Panel Informationon 07-28 yuilop SL [facility] Interpretation and review of laboratory results Abnormal [facility] Interpretation and review of laboratory results Abnormal [facility] OPEN HEART PANELon 4 Arterial patency Wrist artery --pre arterial puncture INFORMATION NOT PROVIDED [facility] Carboxyhemoglobin (Bld) [Mass fraction] 1.3 % 0 - 5 % [facility] Comment on above: Reference Range: Non-Smokers 0-2% Average Smoker 2-4% Heavy Smoker <10% Chloride [Moles/Vol] 108 mmol/L 98 - 11 0 mmol/L yuilop SL [facility] [employer] Glucose [Mass/Vol] 206 mg/dL High 75 - 110 mg/dL [facility] [employer] HCO3 (Bld) [Moles/Vol] 22.1 mmol/L 22 - 27 mmol/L yuilop SL [facility] [employer] Hematocrit (Bld) [Volume fraction] 47.0 % 40.7 - 50.3 % yuilop SL [facility] Hemoglobin (Bld) [Mass/Vol] 15.4 g/dL [facility] Interpretation and review of laboratory results Abnormal [facility] Negative Base Excess, Art 2.7 mmol/L High 0.0 - 2.0 mmol/L [facility] Oxygen saturation in Blood 98.7 % 94 - 100 % [facility] Oxygen/Inspired gas Respiratory system --on ventilator 70 [facility] pCO2, Art, Temp Adj 36.5 32 - 45 [facility] pCO2, Arterial 40.2 [facility] pH, Art, Temp Adj 7.388 7.350 - 7.450 [facility] pH, Arterial 7.359 7.350 - 7.450 [facility] pO2, Art, Temp Adj 295.[address] [facility] pO2, Arterial 305.0 High [facility] Potassium [Moles/Vol] 4.0 mmol/L 3.6 - 5.0 mmol/L [facility] Sodium [Moles/Vol] 137 mmol/L 136 - 145 mmol/L [facility] Arterial patency Wrist artery --pre arterial puncture INFORMATION NOT PROVIDED [facility] Carboxyhemoglobin (Bld) [Mass fraction] 0.2 % 0 - 5 % [facility] Comment on above: Reference Range: Non-Smokers 0-2% Average Smoker 2-4% Heavy Smoker <10% Negative Base Excess, Art 3.3 mmol/L High 0.0 - 2.0 mmol/L [facility] Oxygen/Inspired gas Respiratory system --on ventilator 70% [facility] pCO2, Arterial 44.0 [facility] pH, Arterial 7.326 Low 7.350 - 7.450 [facility] pO2, Arterial 301.0 High [facility] Arterial patency Wrist artery --pre arterial puncture INFORMATION NOT PROVIDED [facility] Carboxyhemoglobin (Bld) [Mass fraction] 1.1 % 0 - 5 % [facility] Comment on above: Reference Range: Non-Smokers 0-2% Average Smoker 2-4% Heavy Smoker <10% Chloride [Moles/Vol] 116 mmol/L High 98 - 11 0 mmol/L [facility] Glucose [Mass/Vol] 150 mg/dL High 75 - 110 mg/dL [facility] HCO3 (Bld) [Moles/Vol] 19.7 mmol/L Low 22 - 27 mmol/L [facility] Hematocrit (Bld) [Volume fraction] 44.5 % 40.7 - 50.3 % [facility] Hemoglobin (Bld) [Mass/Vol] 14.5 g/dL [facility] Negative Base Excess, Art 5.1 mmol/L High 0.0 - 2.0 mmol/L [facility] Oxygen saturation in Blood 98.6 % 94 - 100 % [facility] Oxygen/Inspired gas Respiratory system --on ventilator 70 [facility] pCO2, Arterial 37.6 [facility] pH, Arterial 7.338 Low 7.350 - 7.450 [facility] pO2, Arterial 281.0 High [facility] Potassium [Moles/Vol] 2.9 mmol/L Critically low 3.6 - 5.0 mmol/L [facility] Sodium [Moles/Vol] 140 mmol/L 136 - 145 mmol/L [facility] Open Heart Panelon 4 Gabriel Test INFORMATION NOT PROVIDED Normal [facility] Comment on above: Performed By: #### O HP, IOCAL ####[facility] [id number] [place], [place] [id number] lab Director: Kan Craig MD Performed By: #### O HP, IOCAL, LACTIC ####[facility] [address] [place], [place] [id number] Lab Director: Kan Craig MD Body Temp. 35.0 Normal [facility] Comment on above: Performed By: #### O HP, IOCAL ####[facility] [address] [place] [address] Lab Director: Kan Craig MD Carboxy Hgb 1.3 % Normal 0-5 [facility] Comment on above: Result Comment: Reference Range: Non-Smokers 0-2% Average Smoker 2-4% Heavy Smoker <10% Performed By: #### O HP, IOCAL ####[facility] Zuigertrpgif33[address] [place], [place] [phone])[phone] Director: Kan Craig MD Chloride [Moles/Vol] 108 mmol/L Normal 98-110 [facility] Comment on above: Performed By: #### O HP, IOCAL ####[facility] [address] [place] [address] [phone] Director: Kan Craig MD FIO2 70 Normal [facility] Comment on above: Performed By: #### O HP, IOCAL ####[facility] [address] [place] [address] [phone] Director: Kan Craig MD Glucose [Mass/Vol] 206 mg/dL High 75-110 [facility] Comment on above: Performed By: #### O HP, IOCAL ####[facility] [address] [place] [address] [phone] Director: Kan Craig MD HCO3 (Bld) [Moles/Vol] 22.1 mmol/L Normal 22-27 [facility] Comment on above: Performed By: #### O HP, IOCAL ####[facility] We[address] [place] [address] 85[address] Lab Director: Kan Craig MD Hematocrit (Bld) [Volume fraction] 47.0 % Normal 40.7-50.3 [facility] Comment on above: Performed By: #### O HP, IOCAL ####[facility] [address] [place], [place] [phone] Director: Kan Craig MD Hemoglobin (Bld) [Mass/Vol] 15.4 g/dL Normal 13.0-17.0 [facility] Comment on above: Performed By: #### O HP, IOCAL ####[facility] [address] [place] [address], [place] [phone] Director: Kan Craig MD Negative Base Excess 2.7 mmol/L High 0.0-2.0 [facility] Comment on above: Performed By: #### O HP, IOCAL ####[facility] Mtrsjuledgva[address] [place] [address] [id number])[phone] Director: Kan Craig MD Oxygen (Bld) [Partial pressure] 305.0 mm[Hg] High 75-95 [facility] Comment on above: Performed By: #### O HP, IOCAL ####[facility] [address]ask[address] [place] [address] [phone] Director: Kan Craig MD Oxygen saturation in Blood 98.7 % Normal 94-100 [facility] Comment on above: Performed By: #### O HP, IOCAL ####[facility] [address]virgeul[address] [place] [address] [phone] Director: Kan Craig MD pCO2 40.2 mmHg Normal 32-45 [facility] Comment on above: Performed By: #### O HP, IOCAL ####[facility] [address]dvrouausnlw[address] [place] [address] [phone] Director: Kan Craig MD pCO2 Adj'd for Temp 36.5 Normal 32-45 [facility] Comment on above: Performed By: #### O HP, IOCAL ####[facility] [address]vvmjnq[address] [place] [address] [id number])[phone] Director: Kan Craig MD pH (Bld) 7.359 [pH] Normal 7.350-7.450 [facility] Comment on above: Performed By: #### O HP, IOCAL ####[facility] [address]zavlfqxwvmv2372 [place], [place] [phone] Director: Kan Craig MD pH Adjst'd for Temp. 7.388 Normal 7.350-7.450 [facility] Comment on above: Performed By: #### O HP, IOCAL ####[facility] [address]frkmsi87[address] [place] [address] Lab Director: Kan Craig MD pO2 Adjst'd for Temp 295.0 mmHg High 75-95 [facility] Comment on above: Performed By: #### O HP, IOCAL ####[facility] Orzoihoqramw38[address] [place], [place] [phone])[phone] Director: Kan Craig MD Potassium [Moles/Vol] 4.0 mmol/L Normal 3.6-5.0 [facility] Comment on above: Performed By: #### O HP, IOCAL ####[facility] S[address]rheqjreoy2341 [place], [place] [phone] Director: Kan Craig MD Sodium [Moles/Vol] 137 mmol/L Normal 136-145 [facility] Comment on above: Performed By: #### O HP, IOCAL ####[facility] Pcjrvbmwwwrh2747 [place] [address] Lab Director: Kan Craig MD Chloride [Moles/Vol] 111 mmol/L High 98-110 [facility] Comment on above: Performed By: #### O HP, IOCAL, LACTIC ####[facility] Jzxsddoadhgg7844 [place] [address] Lab Director: Kan Craig MD Glucose [Mass/Vol] 165 mg/dL High 75-[address] [facility] Comment on above: Performed By: #### O HP, IOCAL, LACTIC ####[facility] Pjmivlohywzy5916 [place], [place] [phone] Director: Kan Craig MD HCO3 (Bld) [Moles/Vol] 22.3 mmol/L Normal 22-27 [facility] Comment on above: Performed By: #### O HP, IOCAL, LACTIC ####[facility] Ttvswmisckhs4373 [place] [address] Lab Director: Kan Craig MD Hematocrit (Bld) [Volume fraction] 47.3 % Normal 40.7-50.3 [facility] Comment on above: Performed By: #### O HP, IOCAL, LACTIC ####[facility] E[address]csquerwz8789 [place], [place] [phone] Director: Kan Craig MD Hemoglobin (Bld) [Mass/Vol] 15.4 g/dL Normal 13.0-17.0 [facility] Comment on above: Performed By: #### O HP, IOCAL, LACTIC ####[facility] Zggluzrqzxxf9648 [place], [place] [phone] Director: Kan Craig MD Oxygen saturation in Blood 98.3 % Normal 94-100 [facility] Comment on above: Performed By: #### O HP, IOCAL, LACTIC ####[facility] Anbpnqvherfl3552 [place], [place] [phone] Director: Kan Craig MD Potassium [Moles/Vol] 3.6 mmol/L Normal 3.6-5.0 [facility] Comment on above: Performed By: #### O HP, IOCAL, LACTIC ####[facility] Ivyigcjcobuq6302 [place], [place] [phone] Director: Kan Craig MD Sodium [Moles/Vol] 141 mmol/L Normal 136-[address] [facility] Comment on above: Performed By: #### O HP, IOCAL, LACTIC ####[facility] Ypurgedzugph3176 [place], [place] [phone] Director: Kan Craig MD Carboxy Hgb 0.2 % Normal 0-5 [facility] Comment on above: Result Comment: Reference Range: Non-Smokers 0-2% Average Smoker 2-4% Heavy Smoker <10% Performed By: #### O HP, IOCAL, LACTIC ####[facility] Vtwwksrlxfon8577 [place], [place] [phone] Director: Kan Craig MD FIO2 70% Normal [facility] Comment on above: Performed By: #### O HP, IOCAL, LACTIC ####[facility] Egtgqmrjkors9575 [place] [address] Lab Director: Kan Craig MD Negative Base Excess 3.3 mmol/L High 0.0-2.0 [facility] Comment on above: Performed By: #### O HP, IOCAL, LACTIC ####[facility] Fvdjutiiazou9537 [place], [place] [phone] Director: Kan Craig MD Oxygen (Bld) [Partial pressure] 301.0 mm[Hg] High 75-95 [facility] Comment on above: Performed By: #### O HP, IOCAL, LACTIC ####[facility] Iqfxxvhamtlw0490 [place], [place] [phone] Director: Kan Craig MD pCO2 44.0 mmHg Normal 32-45 [facility] Comment on above: Performed By: #### O HP, IOCAL, LACTIC ####[facility] [address] [place] [address] [phone] Director: Kan Craig MD pH (Bld) 7.326 [pH] Low 7.350-7.450 [facility] Comment on above: Performed By: #### O HP, IOCAL, LACTIC ####[facility] [address]ahtisob[address] [place], [place] [phone] Director: Kan Craig MD Gabriel Test INFORMATION NOT PROVIDED Normal [facility] Comment on above: Performed By: #### I OCAL, OHP #### [facility] [address] [place] [address] Art Director: Kan Craig MD Body Temp. 37.0 Normal [facility] Comment on above: Performed By: #### O HP, IOCAL, LACTIC ####[facility] [address]avjfhx5697 [place] [address] Lab Director: Kan Craig MD Performed By: #### I OCAL, OHP #### [facility] [address] [place] [address] Art Director: Kan Craig MD Carboxy Hgb 1.1 % Normal 0-5 [facility] Comment on above: Result Comment: Reference Range: Non-Smokers 0-2% Average Smoker 2-4% Heavy Smoker <10% Performed By: #### I OCAL, OHP #### [facility] [address] [place] [address] Art Director: Kan Craig MD Chloride [Moles/Vol] 116 mmol/L High 98-110 [facility] Comment on above: Performed By: #### I OCAL, OHP #### [facility] [employer] [address] [place] [address] Art Director: Kan Craig MD FIO2 70 Normal [facility] Comment on above: Performed By: #### I OCAL, OHP #### [facility] [employer] [address] [place] [address] Art Director: Kan Craig MD Glucose [Mass/Vol] 150 mg/dL High 75-110 [facility] Comment on above: Performed By: #### I OCAL, OHP #### [facility] [employer] [address] [place] [address] Art Director: Kan Craig MD HCO3 (Bld) [Moles/Vol] 19.7 mmol/L Low 22-27 [facility] Comment on above: Performed By: #### I OCAL, OHP #### [facility] [employer] [address] [place] [address] Art Director: Kan Craig MD Hematocrit (Bld) [Volume fraction] 44.5 % Normal 40.7-50.3 [facility] Comment on above: Performed By: #### I OCAL, OHP #### [facility] [employer] [address] [place] [address] Art Director: Kan Craig MD Hemoglobin (Bld) [Mass/Vol] 14.5 g/dL Normal 13.0-17.0 [facility] Comment on above: Performed By: #### I OCAL, OHP #### [facility] [address] [place] [address] Art Director: Kan Craig MD Negative Base Excess 5.1 mmol/L High 0.0-2.0 [facility] Comment on above: Performed By: #### I OCAL, OHP #### [facility] [employer] [address] [place] [address] Art Director: Kan Craig MD Oxygen (Bld) [Partial pressure] 281.0 mm[Hg] High 75-95 [facility] Comment on above: Performed By: #### I OCAL, OHP #### [facility] [address] [place] [address] Art Director: Kan Craig MD Oxygen saturation in Blood 98.6 % Normal 94-100 [facility] Comment on above: Performed By: #### I OCAL, OHP #### [facility] [address] [place] [address] Art Director: Kan Craig MD pCO2 37.6 mmHg Normal 32-45 [facility] Comment on above: Performed By: #### I OCAL, OHP #### [employer] [address] [place] [address] 36[address] Art Director: Kan Craig MD pH (Bld) 7.338 [pH] Low 7.350-7.450 [facility] Comment on above: Performed By: #### I OCAL, OHP #### [facility] [employer] [address] [place] [address] [phone] Art Director: Kan Craig MD Potassium [Moles/Vol] 2.9 mmol/L Critically low 3.6-5.0 [facility] Comment on above: Performed By: #### I OCAL, OHP #### [facility] [address] [place], [place] [phone] Art Director: Kan Craig MD Sodium [Moles/Vol] 140 mmol/L Normal 136-145 [facility] Comment on above: Performed By: #### I OCBLADIMIR OHP #### [facility] [address] [place], [place] [phone] Art Director: Kan Craig MD POC Glucose Fingerstickon Glucose [Mass/Vol] 209 mg/dL High 75 - 110 mg/dL [facility] Interpretation and review of laboratory results Abnormal [facility] Glucose [Mass/Vol] 200 mg/dL High 75 - 110 mg/dL [facility] Interpretation and review of laboratory results Abnormal [facility] Glucose [Mass/Vol] 195 mg/dL High 75 - 110 mg/dL [facility] Interpretation and review of laboratory results Abnormal [facility] POCT Glucoseon 07-28-2023 Glucose [Mass/Vol] 156 mg/dL High 74 - 100 mg/dL [facility] Interpretation and review of laboratory results Abnormal [facility] POTASSIUM (POC)on 07-28-2023 Potassium [Moles/Vol] 3.9 mmol/L 3.5 - 4.5 mmol/L [facility] Potassium (POC)on 07-28-2023 Potassium [Moles/Vol] 3.9 mmol/L Normal 3.5-4.5 [facility] CT CHEST WO CONTRASTon 07-27 CT [...] HISTORY: Stenosis of cervical spine with myelopathy ([facility]) TECHNOLOGIST PROVIDED HISTORY: please include SAGITTAL up [...] Noel IV, MD 07/27/23 Final result Normal [facility] APTTon 07-10-2023 aPTT Coag (Bld) [Time] 28.5 s Normal 23.0-36.5 [facility] Comment on above: Result Comment: IV Heparin Therapy Range: 66.0-92.0 sec Performed By: #### B MP, PT, PTT, CDP ####[place] [place] [address] lab Director: Kan Craig MD Basic Metabolic Profon 07-10 Anion gap [Moles/Vol] 13 mmol/L Normal 9-16 [facility] Comment on above: Performed By: #### B MP, PT, PTT, CDP ####[facility] [address] [place] [address])[phone] Director: Kan Craig MD Calcium [Mass/Vol] 9.4 mg/dL Normal 8.6-10.4 [facility] Comment on above: Performed By: #### B MP, PT, PTT, CDP ####[facility] [address] [place] [address])[phone] Director: Kan Craig MD Chloride [Moles/Vol] 102 mmol/L Normal 98-107 [facility] Comment on above: Performed By: #### B MP, PT, PTT, CDP ####[facility] [address] [place] [address])[phone] Director: Kan Craig MD CO2 [Moles/Vol] 24 mmol/L Normal 20-31 [facility] Comment on above: Performed By: #### B MP, PT, PTT, CDP ####[facility] [address] [place] [address])[phone] Director: Kan Craig MD Creatinine [Mass/Vol] 1.0 mg/dL Normal 0.70-1.20 [facility] Comment on above: Performed By: #### B MP, PT, PTT, CDP ####[facility] [address] [place] [address])[phone] Director: Kan Craig MD GFR/1.73 sq M.predicted among non-blacks MDRD (S/P/Bld) [Vol rate/Area] mL/min/{1.73_m2} Normal >60 [facility] Comment on above: Result Comment: [...] tubular secretion. Performed By: #### B MP, PT, PTT, CDP ####[facility] [address] [place] [address] 7[address])[phone] Director: Kan Craig MD Glucose [Mass/Vol] 114 mg/dL High 74-99 [facility] Comment on above: Performed By: #### B MP, PT, PTT, CDP ####[facility] [address] [place] [address] 564[address])[phone] Director: Kan Craig MD Potassium [Moles/Vol] 4.2 mmol/L Normal 3.7-5.3 [facility] Comment on above: Performed By: #### B MP, PT, PTT, CDP ####[address] [address])[phone] Director: Kan Craig MD Sodium [Moles/Vol] 139 mmol/L Normal 136-145 [facility] Comment on above: Performed By: #### B MP, PT, PTT, CDP ####[address] [address])[phone] Director: Kan Craig MD Urea nitrogen [Mass/Vol] 21 mg/dL Normal 8-23 [facility] Comment on above: Performed By: #### B MP, PT, PTT, CDP ####[facility] [address] [place] [address] 699[address])[phone] Director: Kan Craig MD CBC with Diffon 07-10-2023 Abs. Basophil 0.11 k/uL Normal 0.00-0.20 [facility] Comment on above: Performed By: #### B MP, PT, PTT, CDP ####[address] [address])[phone] Director: Kan Craig MD Abs.Imm.Granulocyte 0.05 k/uL Normal 0.00-0.30 [facility] Comment on above: Performed By: #### B MP, PT, PTT, CDP ####[address] [address])[phone] Director: Kan Craig MD Abs.Neutrophil (Seg) 3.72 k/uL Normal 1.50-8.10 [facility] Comment on above: Performed By: #### B MP, PT, PTT, CDP ####[facility] [address] [place], [place] [address])[phone] Director: Kan Craig MD Basophils/100 WBC (Bld) 2 % Normal 0-2 [facility] Comment on above: Performed By: #### B MP, PT, PTT, CDP ####[place], [place] [address])[phone] Director: Kan Craig MD Eosinophils (Bld) [#/Vol] 0.16 10*3/uL Normal 0.00-0.44 [facility] Comment on above: Performed By: #### B MP, PT, PTT, CDP ####[place], [place] [address])[phone] Director: Kan Craig MD Eosinophils/100 WBC (Bld) 3 % Normal 1-4 [facility] Comment on above: Performed By: #### B MP, PT, PTT, CDP ####[facility] [address] [place], [place] [address])[phone] Director: Kan Craig MD Erythrocyte distribution width (RBC) [Ratio] 12.1 % Normal 11.8-14.4 [facility] Comment on above: Performed By: #### B MP, PT, PTT, CDP ####[facility] [address] [place], [place] [address])[phone] Director: Kan Craig MD Hematocrit (Bld) [Volume fraction] 49.3 % Normal 40.7-50.3 [facility] Comment on above: Performed By: #### B MP, PT, PTT, CDP ####[facility] [address] [place] [address] 72507 Lab Director: Kan Craig MD Hemoglobin (Bld) [Mass/Vol] 16.3 g/dL Normal 13.0-17.0 [facility] Comment on above: Performed By: #### B MP, PT, PTT, CDP ####[facility] [address] [place] [address] [phone])[phone] Director: Kan Craig MD Immature granulocytes/100 WBC (Bld) 1 % High 0 [facility] Comment on above: Performed By: #### B MP, PT, PTT, CDP ####[address] [address])[phone] Director: Kan Craig MD Lymphocytes (Bld) [#/Vol] 1.83 10*3/uL Normal 1.10-3.70 [facility] Comment on above: Performed By: #### B MP, PT, PTT, CDP ####[facility] [address] [place] [address] [phone])[phone] Director: Kan Craig MD Lymphocytes/100 WBC (Bld) 29 % Normal 24-43 [facility] Comment on above: Performed By: #### B MP, PT, PTT, CDP ####[facility] [address] [place] [address] [id number])[phone] Director: Kan Craig MD MCH (RBC) [Entitic mass] 31.7 pg Normal 25.2-33.5 [facility] Comment on above: Performed By: #### B MP, PT, PTT, CDP ####[facility] [address] [place], [place] [phone])[phone] Director: Kan Craig MD MCHC (RBC) [Mass/Vol] 33.1 g/dL Normal 28.4-34.8 [facility] Comment on above: Performed By: #### B MP, PT, PTT, CDP ####[address] [phone] Director: Kan Craig MD MCV (RBC) [Entitic vol] 95.7 fL Normal 82.6-102.9 [facility] Comment on above: Performed By: #### B MP, PT, PTT, CDP ####[address] [address])[phone] Director: Kan Craig MD Monocytes (Bld) [#/Vol] 0.41 10*3/uL Normal 0.10-1.20 [facility] Comment on above: Performed By: #### B MP, PT, PTT, CDP ####[place], [place] [address])[phone] Director: Kan Craig MD Monocytes/100 WBC (Bld) 7 % Normal 3-12 [facility] Comment on above: Performed By: #### B MP, PT, PTT, CDP ####[address] [address])[phone] Director: aKn Craig MD Neutrophil (Seg) 58 % Normal 36-65 [facility] Comment on above: Performed By: #### B MP, PT, PTT, CDP ####[place], [place] [address])[phone] Director: Kan Craig MD NRBC Automated 0.0 per 100 WBC Normal 0.0 [facility] Comment on above: Performed By: #### B MP, PT, PTT, CDP ####[address] [phone])[phone] Director: Kan Craig MD Platelet mean volume (Bld) [Entitic vol] 10.5 fL Normal 8.1-13.5 [facility] Comment on above: Performed By: #### B MP, PT, PTT, CDP ####[facility] [address] [place], [place] [id number])[phone] Director: Kan Craig MD Platelets (Bld) [#/Vol] 225 10*3/uL Normal 138-453 [facility] Comment on above: Performed By: #### B MP, PT, PTT, CDP ####[facility] [address]rasybvps[address] [place], [place] [phone])[phone] Director: Kan Craig MD RBC (Bld) [#/Vol] 5.15 10*6/uL Normal 4.21-5.77 [facility] Comment on above: Performed By: #### B MP, PT, PTT, CDP ####[address] [address])[phone] Director: aKn Craig MD WBC (Bld) [#/Vol] 6.3 10*3/uL Normal 3.5-11.3 [facility] Comment on above: Performed By: #### B MP, PT, PTT, CDP ####[facility] [address] [place] [address] [phone])[phone] Director: Kan Craig MD PTon 07-10-2023 INR Coag (PPP) [Relative time] 1.0 {INR} Normal [facility] Comment on above: Result Comment: Therapeutic Range: Moderate Anticoagulant Intensity: INR = 2.0-3.0 High Anticoagulant Intensity: INR = 2.5-3.5 Performed By: #### B MP, PT, PTT, CDP ####[facility] [address] [place], [place] [phone])[phone] Director: Kan Craig MD PT Coag (PPP) [Time] 12.7 s Normal 11.7-14.9 [facility] Comment on above: Performed By: #### B MP, PT, PTT, CDP ####[facility] [address] [address] Lab Director: Kan Craig MD Type + Screenon Type + Screen Sample Expiration 07/31/2023,2359 Arm Band Number [place] [id number] ABO/Rh(D) B POSITIVE Antibody Screen NEGATIVE Normal [facility] Comment on above: Performed By: #### T YS #### [address] [address] Art Director: Kan Craig MD Performed By: #### T YS ####[address] [address] Lab Director: Kan Craig MD Urinalysis, Routineon 1 Bilirubin, SemiQt,Ur Negative Normal NEG [facility] Comment on above: Performed By: #### U A #### [address] [address] Art Director: Kan Craig MD Blood, Urine Negative Normal NEG [facility] Comment on above: Performed By: #### U A #### [address] [address] Art Director: Kan Craig MD Clarity (U) Clear Normal CLEAR [facility] Comment on above: Performed By: #### U A #### [address] [address] Art Director: Kan Craig MD Color (U) Yellow Normal YEL [facility] Comment on above: Performed By: #### U A #### [address] [address] Art Director: Kan Craig MD Comment Microscopic exam not performed based on chemical results unless requested in Normal [facility] Comment on above: Result Comment: orig inal order. Performed By: #### U A #### [address] [address] Art Director: Kan Craig MD Glucose Ql (U) 3+ mg/dL Abnormal NEG [facility] Comment on above: Performed By: #### U A #### [address] [address] Art Director: Kan Craig MD Ketones Ql (U) Negative Normal NEG [facility] Comment on above: Performed By: #### U A #### [address] [address] Art Director: Kan Craig MD Leukocyte esterase Test strip Ql (U) Negative Normal NEG [facility] Comment on above: Performed By: #### U A #### [address] [address] Art Director: Kan Craig MD Nitrite,Ur Negative Normal NEG [facility] Comment on above: Performed By: #### U A #### [address] [address] Art Director: Kan Craig MD PH,Ur 5.0 Normal 5.0-8.0 [facility] Comment on above: Performed By: #### U A #### [address] [address] Art Director: Kan Craig MD Protein Ql (U) Negative Normal NEG [facility] Comment on above: Performed By: #### U A #### [address] [address] Art Director: Kan Craig MD Spec. [place],Ur 1.029 Normal 1.005-1.030 [facility] Comment on above: Performed By: #### U A #### [address] [address] Art Director: Kan Craig MD Urobilinogen,Ur Normal Normal 0.0-1.0 [facility] Comment on above: Performed By: #### U A #### [facility] [address] [place], [place] 1248808 Art Director: Kan Craig MD CT CERVICAL SPINE WO [...] Johan Bowers MD 06/07/23 Final result Normal [facility] Basic Metabolic Profon 05-19 Anion gap [Moles/Vol] 13 mmol/L Normal 9-17 [facility] Comment on above: Performed By: #### C BC, BMP #### [facility] [address] [place] [address] Art Director: Julio Martínez MD #### GLYHGB #### [address] [address] Art Director: Kan Craig MD BUN/CRE Ratio 27 High 9-20 [facility] Comment on above: Performed By: #### C BC, BMP #### [facility] [address] [place] [address] Art Director: Julio Martínez MD #### GLYHGB #### [address] [address] Art Director: Kan Craig MD Calcium [Mass/Vol] 9.7 mg/dL Normal 8.6-10.4 [facility] Comment on above: Performed By: #### Nancy ROBLES, BMP #### [facility] [address] [place] [address] Art Director: Julio Martínez MD #### GLYHGB #### [address] [address] Art Director: Kan Craig MD Chloride [Moles/Vol] 103 mmol/L Normal 98-107 [facility] Comment on above: Performed By: #### C TRAVIS, BMP #### [facility] [address] [place] [address] Art Director: Julio Martínez MD #### GLYHGB #### [address] [address] Art Director: Kan Craig MD CO2 [Moles/Vol] 24 mmol/L Normal 20-31 [facility] Comment on above: Performed By: #### C TRAVIS, BMP #### [facility] [address] [place] [address] [place] [address] Art Director: Julio Martínez MD #### GLYHGB #### [address] [address] Art Director: Kan Craig MD Creatinine [Mass/Vol] 1.0 mg/dL Normal 0.7-1.2 [facility] Comment on above: Performed By: #### C TRAVIS, BMP #### [facility] [address] [place] [address] Art Director: Julio Martínez MD #### GLYHGB #### [address] [id number] Art Director: aKn Craig MD GFR/1.73 sq M.predicted among non-blacks MDRD (S/P/Bld) [Vol rate/Area] mL/min/{1.73_m2} Normal >60 [facility] Comment on above: Result Comment: These [...] renal tubular secretion. Performed By: #### C TRAVIS, BMP #### [facility] [address] [place] [address] Art Director: Julio Martínez MD #### GLYHGB #### [address] [address] Art Director: Kan Craig MD Glucose [Mass/Vol] 169 mg/dL High 70-99 [facility] Comment on above: Performed By: #### C TRAVIS, BMP #### [facility] [address] [place] [address] Art Director: Julio Martínez MD #### GLYHGB #### [address] [id number] Art Director: Kan Craig MD Potassium [Moles/Vol] 4.1 mmol/L Normal 3.7-5.3 [facility] Comment on above: Performed By: #### C BC, BMP #### [facility] [address] [place], [place] [id number] Art Director: Julio Martínez MD #### GLYHGB #### [address] [id number] Art Director: Kan Craig MD Sodium [Moles/Vol] 140 mmol/L Normal 135-144 [facility] Comment on above: Performed By: #### Nancy BC, BMP #### [facility] [address] [place] [address] [id number] Art Director: Julio Martínez MD #### GLYHGB #### [address] [phone] Art Director: Kan Craig MD Urea nitrogen [Mass/Vol] 27 mg/dL High 8-23 [facility] Comment on above: Performed By: #### Nancy BC, BMP #### [facility] [address] [place] [address] [phone] Art Director: Julio Martínez MD #### GLYHGB #### [address] [id number] Art Director: Kan Craig MD CBCon 05-19-2023 Erythrocyte distribution width (RBC) [Ratio] 13.6 % Normal 11.8-14.4 [facility] Comment on above: Performed By: #### Nancy BC, BMP #### [facility] [address] [place] [address] [place] [address] Art Director: Julio Martínez MD #### GLYHGB #### [address] [address] Art Director: Kan Craig MD Hematocrit (Bld) [Volume fraction] 46.6 % Normal 40.7-50.3 [facility] Comment on above: Performed By: #### C BC, BMP #### [facility] [address] [place] [address] Art Director: Julio Martínez MD #### GLYHGB #### [address] [address] Art Director: Kan Craig MD Hemoglobin (Bld) [Mass/Vol] 15.6 g/dL Normal 13.0-17.0 [facility] Comment on above: Performed By: #### C BC, BMP #### [facility] [address] [place] [address] Art Director: Julio Martínez MD #### GLYHGB #### [address] [address] Art Director: Kan Craig MD MCH (RBC) [Entitic mass] 31.9 pg Normal 25.2-33.5 [facility] Comment on above: Performed By: #### C BC, BMP #### [facility] [address] [place] [address] Art Director: Julio Martínez MD #### GLYHGB #### [address] [address] Art Director: Kan Craig MD MCHC (RBC) [Mass/Vol] 33.5 g/dL Normal 28.4-34.8 [facility] Comment on above: Performed By: #### C BC, BMP #### [facility] [address] [place] [address] Art Director: Julio Martínez MD #### GLYHGB #### [address] [address] Art Director: Kan Craig MD MCV (RBC) [Entitic vol] 95.3 fL Normal 82.6-102.9 [facility] Comment on above: Performed By: #### C BC, BMP #### [facility] [address] [place] [address] Art Director: Julio Martínez MD #### GLYHGB #### [address] [address] Art Director: Kan Craig MD NRBC Automated 0.0 per 100 WBC Normal 0.0 [facility] Comment on above: Performed By: #### C TRAVIS, BMP #### [facility] [address] [place] [address] Art Director: Julio Martínez MD #### GLYHGB #### [address] [address] Art Director: Kan Craig MD Platelet mean volume (Bld) [Entitic vol] 10.7 fL Normal 8.1-13.5 [facility] Comment on above: Performed By: #### C BC, BMP #### [facility] [address] [place] [address] Art Director: Julio Martínez MD #### GLYHGB #### [address] [address] Art Director: Kan Craig MD Platelets (Bld) [#/Vol] 255 10*3/uL Normal 138-453 [facility] Comment on above: Performed By: #### C BC, BMP #### [facility] [address] [place] [address] Art Director: Julio Martínez MD #### GLYHGB #### [address] [address] Art Director: Kan Craig MD RBC (Bld) [#/Vol] 4.89 10*6/uL Normal 4.21-5.77 [facility] Comment on above: Performed By: #### C BC, BMP #### [facility] [address] [place] [address] Art Director: Julio Martínez MD #### GLYHGB #### [address] [address] Art Director: Kan Craig MD WBC (Bld) [#/Vol] 6.3 10*3/uL Normal 3.5-11.3 [facility] Comment on above: Performed By: #### C BC, BMP #### [facility] [address] [place] [address] Art Director: Julio Martínez MD #### GLYHGB #### [address] [address] Art Director: Kan Craig MD Hemoglobin A1Con 05-19-2023 Glucose [Mass/Vol] 151 mg/dL Normal [facility] Comment on above: Result Comment: The ADA and AACC recommend providing the estimated average glucose result to permit better patient understanding of their HBA1c result. Performed By: #### C BC, BMP #### [facility] [address] [place] [address] Art Director: Julio Martínez MD #### GLYHGB #### [address] [address] Art Director: Kan Craig MD HbA1c (Bld) [Mass fraction] 6.9 % High 4.0-6.0 [facility] Comment on above: Performed By: #### C BC, BMP #### [facility] [address] [place], [place] [id number] Art Director: Julio Martínez MD #### GLYHGB #### [facility] [address] [place], [place] [phone] Art Director: Kan Craig MD MRI CERVICAL SPINE WO [...] Tonja Malone MD 05/17/23 Final result Normal [facility] POINT OF CARE GLUCOSEon 10-10 Glucose [Mass/Vol] 159 mg/dL Critically high 74-106 [facility] Comment on above: Performed By: #### P OCGLUC #### [facility] [address] [place], [place] [address] Dr. Cristal Goodwin POINT OF CARE GLUCOSEon 09-10 Glucose [Mass/Vol] 182 mg/dL Critically high 74-106 [facility] Comment on above: Performed By: #### P OCGLUC #### [facility] [address] [place], [place] [address] Dr. Cristal Goodwin XR CSPINE 2_3 VIEWSon [...] by: WILL SOARES Date: 2022-09-15 10:31 Normal [facility] XR TSPINE 2 VIEWSon 09-16-19 23 [...] by: WILL SOARES Date: 2022-09-15 10:29 Normal [facility] POINT OF CARE GLUCOSEon 08-11 Glucose [Mass/Vol] 120 mg/dL Critically high 74-106 [facility] Comment on above: Performed By: #### P OCGLUC #### [facility] [address] [place] [address] Dr. Cristal Goodwin XR LSPINE MIN 4 [...] by: GUILLERMO AMADOR Date: 2022-08-10 07:23 Normal [facility] CT LUNG CANCER SCREENINGon 0 08-03-2022 [...] by: WILL SOARES Date: 2022-08-03 15:51 Normal [facility] BASIC METABOLIC PANELon - BUN/CREATININE RATIO NOT APPLICABLE Normal - [facility] Comment on above: Order Comment: FASTI NG:YES FASTING: YES Performed By: #### 4 96, 34575 #### [facility] [address], [address] [place] [address] Casing Machine Operator: Gelacio Alonso MD Calcium [Mass/Vol] 9.1 mg/dL Normal 8.6-10.3 [facility] Comment on above: Order Comment: FASTI NG:YES FASTING: YES Performed By: #### 4 96, 03528 #### [facility] [address], [address] [place] [address] Casing Machine Operator: Gelacio Alonso MD Chloride [Moles/Vol] 106 mmol/L Normal 98-110 [email or web address] t [facility] Comment on above: Order Comment: FASTI NG:YES FASTING: YES Performed By: #### 4 96, 18910 #### [facility] [address], [address] [place] [address] Casing Machine Operator: Gelacio Alonso MD CO2 [Moles/Vol] 26 mmol/L Normal 20-32 [facility] Comment on above: Order Comment: FASTI NG:YES FASTING: YES Performed By: #### 4 96, 04228 #### [facility] [address], [address] [place] [address] Casing Machine Operator: Gelacio Alonso MD Creatinine [Mass/Vol] 0.93 mg/dL Normal 0.70-1.35 [facility] Comment on above: Order Comment: FASTI NG:YES FASTING: YES Performed By: #### 4 96, 17824 #### [facility] [address], [address] [place] [address] Casing Machine Operator: Gelacio Alonso MD GFR/1.73 sq M.predicted among non-blacks MDRD (S/P/Bld) [Vol rate/Area] 93 mL/min/{1.73_m2} Normal > OR = 60 [facility] Comment on above: Order Comment: FASTI NG:YES FASTING: YES Result Comment: The eGFR is based on the CKD-EPI 2020 equation. To calculate the new eGFR from a previous Creatinine or Cystatin C result, go to [email or web address].kidney.org/professionals/ kdoqi/gfr%[email or web address] Performed By: #### 4 96, 51277 #### [facility] [place] [address] Casing Machine Operator: Gelacio Alonso MD Glucose [Mass/Vol] 136 mg/dL High 65-99 [facility] Comment on above: Order Comment: FASTI NG:YES FASTING: YES Result Comment: Fasting reference interval For someone without known diabetes, a glucose value >125 mg/dL indicates that they may have diabetes and this should be confirmed with a follow-up test. Performed By: #### 4 96, 29289 #### [facility] [place] [address] Casing Machine Operator: Gelacio Alonso MD Potassium [Moles/Vol] 4.3 mmol/L Normal 3.5-5.3 [facility] Comment on above: Order Comment: FASTI NG:YES FASTING: YES Performed By: #### 4 96, 07599 #### [facility] [address], [address] [place] [address] Casing Machine Operator: Gelacio Alonso MD Sodium [Moles/Vol] 140 mmol/L Normal 135-146 [facility] Comment on above: Order Comment: FASTI NG:YES FASTING: YES Performed By: #### 4 96, 57460 #### [facility] [address], [address] [place] [address] Casing Machine Operator: Gelacio Alonso MD Urea nitrogen [Mass/Vol] 16 mg/dL Normal 7-25 [facility] Comment on above: Order Comment: FASTI NG:YES FASTING: YES Performed By: #### 4 96, 58198 #### [facility] [address], [address] [place] [address] Casing Machine Operator: Gelacio Alonso MD HEMOGLOBIN A1con 12-30-2021 HEMOGLOBIN [...] for children. Performed By: #### 4 96, 81330 #### [facility] [address], [address] [place] [address] Casing Machine Operator: Gelacio Alonso MD BASIC METABOLIC PANELon 05-12 BUN/CREATININE RATIO NOT APPLICABLE Normal 6-22 [facility] Comment on above: Order Comment: FASTI NG:YES FASTING: YES Performed By: #### 1 0165 #### [facility] [address], [address] [place] [address] Casing Machine Operator: Gelacio Alonso MD Calcium [Mass/Vol] 9.3 mg/dL Normal 8.6-10.3 [facility] Comment on above: Order Comment: FASTI NG:YES FASTING: YES Performed By: #### 1 0165 #### [facility] [address], [address] [place] [address] Casing Machine Operator: Gelacio Alonso MD Chloride [Moles/Vol] 109 mmol/L Normal 98-110 [facility] [[email or web address] t [facility] Comment on above: Order Comment: FASTI NG:YES FASTING: YES Performed By: #### 1 0165 #### [facility] [address], [address] [place] [address] Casing Machine Operator: Gelacio Alonso MD CO2 [Moles/Vol] 26 mmol/L Normal 20-32 [facility] Comment on above: Order Comment: FASTI NG:YES FASTING: YES Performed By: #### 1 0165 #### [facility] [address], [address] [place] [address] Casing Machine Operator: Gelacio Alonso MD Creatinine [Mass/Vol] 0.93 mg/dL Normal 0.70-1.25 [facility] Comment on above: Order Comment: FASTI NG:YES FASTING: YES Result Comment: For patients >49 years of age, the reference limit for Creatinine is approximately 13% higher for people identified as -[place] Island[place]. Performed By: #### 1 0165 #### [facility] [address], [address] [place] [address] Casing Machine Operator: Gelacio Alonso MD eGFR NON-AFR. GREEK 88 mL/min/1.73m2 Normal > OR = 60 [facility] Comment on above: Order Comment: FASTI NG:YES FASTING: YES Performed By: #### 1 0165 #### [facility] [address], [address] [place] [address] Casing Machine Operator: Gelacio Alonso MD GFR/1.73 sq M.predicted among blacks MDRD (S/P/Bld) [Vol rate/Area] 102 mL/min/{1.73_m2} Normal > OR = 60 [facility] Comment on above: Order Comment: FASTI NG:YES FASTING: YES Performed By: #### 1 0165 #### [facility] [address], [address] [place] [address] Casing Machine Operator: Gelacio Alonso MD Glucose [Mass/Vol] 122 mg/dL High 65-99 [facility] Comment on above: Order Comment: FASTI NG:YES FASTING: YES Result Comment: Fasting reference interval For someone without known diabetes, a glucose value between 100 and 125 mg/dL is consistent with prediabetes and should be confirmed with a follow-up test. Performed By: #### 1 0165 #### [facility] [address], [address] [place] [address] Casing Machine Operator: Gelacio Alonso MD Potassium [Moles/Vol] 4.5 mmol/L Normal 3.5-5.3 [facility] Comment on above: Order Comment: FASTI NG:YES FASTING: YES Performed By: #### 1 0165 #### [facility] [address], [address] [place] [address] Casing Machine Operator: Gelacio Alonso MD Sodium [Moles/Vol] 141 mmol/L Normal 135-146 [facility] Comment on above: Order Comment: FASTI NG:YES FASTING: YES Performed By: #### 1 0165 #### [facility] [address], [address] [place] [address] Casing Machine Operator: Gelacio Alonso MD Urea nitrogen [Mass/Vol] 24 mg/dL Normal 7-25 [facility] Comment on above: Order Comment: FASTI NG:YES FASTING: YES Performed By: #### 1 0165 #### [facility] [place] [address] Casing Machine Operator: Gelacio Alonso MD [facility] 02-04-2021 Albumin [Mass/Vol] 4.3 g/dL Normal 3.6-5.1 [facility] Comment on above: Performed By: #### 1 0231, 7600, 5363 #### [facility] [address], [address] [place] [address] Casing Machine Operator: Gelacio Alonso MD Albumin/Globulin [Mass ratio] 1.7 {ratio} Normal 1.0-2.5 [facility] Comment on above: Performed By: #### 1 0231, 7600, 5363 #### [facility] [place] [address] Casing Machine Operator: Gelacio Alonso MD ALP [Catalytic activity/Vol] 54 U/L Normal 35-144 [facility] Comment on above: Performed By: #### 1 023, 7599, 5363 #### [facility] of [place] [address] Casing Machine Operator: Gelacio Alonso MD ALT [Catalytic activity/Vol] 19 U/L Normal 9-46 [facility] Comment on above: Performed By: #### 1 023, 7599, 5363 #### [facility] [place] [address] Casing Machine Operator: Gelacio Alonso MD AST [Catalytic activity/Vol] 19 U/L Normal 10-35 [facility] Comment on above: Performed By: #### 1 023, 7599, 5363 #### [facility] [place] [address] Casing Machine Operator: Gelacio Alonso MD Bilirubin [Mass/Vol] 0.6 mg/dL Normal 0.2-1.2 [facility] Comment on above: Performed By: #### 1 023, 7599, 5363 #### [facility] [place] [address] Casing Machine Operator: Gelacio Alonso MD BUN/CREATININE RATIO NOT APPLICABLE Normal 6-22 [facility] Comment on above: Performed By: #### 1 023, 7599, 5363 #### [facility] [place] [address] Casing Machine Operator: Gelacio Alonso MD Calcium [Mass/Vol] 9.2 mg/dL Normal 8.6-10.3 [facility] Comment on above: Performed By: #### 1 023, 7599, 5363 #### [facility] [place] [address] Casing Machine Operator: Gelacio Alonso MD Chloride [Moles/Vol] 106 mmol/L Normal 98-110 [facility] Comment on above: Performed By: #### 1 023, 7599, 5363 #### [facility] [address], [address] [place] [address] Casing Machine Operator: Gelacio Alonso MD CO2 [Moles/Vol] 28 mmol/L Normal 20-32 [facility] Comment on above: Performed By: #### 1 023, 0, 5363 #### [facility] [place] [address] Casing Machine Operator: Gelacio Alonso MD Creatinine [Mass/Vol] 0.93 mg/dL Normal 0.70-1.25 [facility] Comment on above: Result Comment: For patients >49 years of age, the reference limit for Creatinine is approximately 13% higher for people identified as -[place]. Performed By: #### 1 230, 7599, 5363 #### [facility] [address], [address] [place] [address] Casing Machine Operator: Gelacio Alonso MD eGFR NON-AFR. GREEK 88 mL/min/1.73m2 Normal > OR = 60 [facility] Comment on above: Performed By: #### 1 230, 7599, 5363 #### [facility] [place] [address] Casing Machine Operator: Gelacio Alonso MD GFR/1.73 sq M.predicted among blacks MDRD (S/P/Bld) [Vol rate/Area] 102 mL/min/{1.73_m2} Normal > OR = 60 [facility] Comment on above: Performed By: #### 1 230, 7599, 5363 #### [facility] [place] [address] Casing Machine Operator: Gelacio Alonso MD Globulin (S) [Mass/Vol] 2.5 g/dL Normal 1.9-3.7 [facility] Comment on above: Performed By: #### 1 023, 7599, 5363 #### [facility] [place] [address] Casing Machine Operator: Gelacio Alonso MD Glucose [Mass/Vol] 83 mg/dL Normal 65-99 [facility] Comment on above: Result Comment: Fasting reference interval Performed By: #### 1 0231, 7599, 5363 #### [facility] of [address], [address] [place] [address] Casing Machine Operator: Gelacio Alonso MD Potassium [Moles/Vol] 4.5 mmol/L Normal 3.5-5.3 [facility] Comment on above: Performed By: #### 1 023, 7599, 5363 #### [facility] of [address], [address] [place] [address] Casing Machine Operator: Gelacio Alonso MD Protein [Mass/Vol] 6.8 g/dL Normal 6.1-8.1 [facility] Comment on above: Performed By: #### 1 023, 7599, 5363 #### [facility] [place] [address] Casing Machine Operator: Gelacio Alonso MD Sodium [Moles/Vol] 141 mmol/L Normal 135-146 [facility] Comment on above: Performed By: #### 1 023, 7599, 5363 #### [facility] [place] [address] Casing Machine Operator: Gelacio Alonso MD Urea nitrogen [Mass/Vol] 20 mg/dL Normal 7-25 [facility] Comment on above: Performed By: #### 1 023, 7599, 5363 #### [facility] [place] [address] Casing Machine Operator: Gelacio Alonso MD LIPID PANEL, [facility] [place] 08-2 Cholesterol [Mass/Vol] 138 mg/dL Normal <200 [facility] Comment on above: Performed By: #### 1 023, 7599, 5363 #### [facility] [place] [address] Casing Machine Operator: Gelacio Alonso MD Cholesterol in HDL [Mass/Vol] 49 mg/dL Normal > OR = 40 [facility] Comment on above: Performed By: #### 1 023, 7599, 5363 #### [facility] [address], [address] [place] [address] Casing Machine Operator: Gelacio Alonso MD Cholesterol in LDL [Mass/Vol] [...] of LDL-C. Paul CHERRY et al. JULEE. 2013;310(32): 4499-4516 (http://education.[employer]/faq/WAJ066) Performed By: #### 1 023, 7599, 5363 #### [facility] [address], [address] [place] [address] Casing Machine Operator: Gelacio Alonso MD Cholesterol.total/Chol esterol in HDL [Mass ratio] 2.8 {ratio} Normal <5.0 [facility] Comment on above: Performed By: #### 1 023, 7599, 5363 #### [facility] [place] [address] Casing Machine Operator: Gelacio Alonso MD NON HDL CHOLESTEROL 89 mg/dL (calc) Normal <130 [facility] Comment on above: Result Comment: For patients with diabetes plus 1 major ASCVD risk factor, treating to a non-HDL-C goal of <100 mg/dL (LDL-C of <70 mg/dL) is considered a therapeutic option. Performed By: #### 1 0231, 0, 5363 #### [facility] [address], [address] [place] [address] Casing Machine Operator: Gelacio Alonso MD Triglyceride [Mass/Vol] 79 mg/dL Normal <150 [facility] Comment on above: Performed By: #### 1 0231, 0, 5363 #### [facility] [place] [address] Casing Machine Operator: Gelacio Alonso MD PSA, TOTALon 02-04-2021 PSA, TOTAL 0.3 ng/mL Normal < OR = 4.0 [facility] Comment on above: Result Comment: The total [...] of disease. Performed By: #### 1 0231, 9200, 5363 #### [facility] [address], [address] [place] [address] Casing Machine Operator: Gelacio Alonso MD Vital Signs Date Time Vital Sign Value Performing Clinician Indu machado 08-11-2023 10:59-0500 Body height 170.2 cm Day Obando APRN-MANAGEMENT CONSULTING Work Phone: [facility] 08-11-2023 10:59-0500 Body mass index (BMI) [Ratio] 34.22 kg/m2 Day Obando POULTRY PROCESSOR-MANAGEMENT CONSULTING Work Phone: [facility] 08-11-2023 10:59-0500 Body temperature 97.5 [degF] Day Obando POULTRY PROCESSOR-MANAGEMENT CONSULTING Work Phone: [facility] 08-11-2023 10:59-0500 Body weight 99.11 kg Day Obando POULTRY PROCESSOR-MANAGEMENT CONSULTING Work Phone: [facility] 08-11-2023 10:59-0500 Diastolic blood pressure 78 mm[Hg] Day Obando POULTRY PROCESSOR-MANAGEMENT CONSULTING Work Phone: [facility] 08-11-2023 10:59-0500 Heart rate 84 /min Day Obando POULTRY PROCESSOR-MANAGEMENT CONSULTING Work Phone: [facility] 08-11-2023 10:59-0500 SaO2% (BldA) [Mass fraction] 95 % Day Obando POULTRY PROCESSOR-MANAGEMENT CONSULTING Work Phone: [facility] 08-11-2023 10:59-0500 Systolic blood pressure 112 mm[Hg] Day Obando POULTRY PROCESSOR-MANAGEMENT CONSULTING Work Phone: [facility] 07-31-2023 12:42-0500 SaO2% (BldA) [Mass fraction] 92 % Mike Ahammad DO Work Phone: [facility] [email or web address] 07-31-2023 11:40-0500 Body temperature 98.6 [degF] Mike Ahammad DO Work Phone: [facility] [email or web address] 07-31-2023 11:40-0500 Diastolic blood pressure 64 mm[Hg] Mike Ahammad DO Work Phone: [facility] [email or web address] 07-31-2023 11:40-0500 Heart rate 115 /min Mike Ahammad DO Work Phone: [facility] [email or web address] 07-31-2023 11:40-0500 Respiratory rate 11 /min Mike Ahammad DO Work Phone: [facility] [email or web address] 07-31-2023 11:40-0500 Systolic blood pressure 102 mm[Hg] Mike Ahammad DO Work Phone: [facility] [email or web address] 07-28-2023 12:39-0500 Body temperature 35.0 Mike Ahammad DO Work Phone: [facility] [email or web address] 07-28-2023 11:00-0500 Body temperature 37.0 Mike Ahammad DO Work Phone: [facility] [email or web address] 07-28-2023 10:16-0500 Body temperature 37.0 Mike Ahammad DO Work Phone: [facility] [email or web address] 07-28-2023 06:21-0500 Body height 170.2 cm Mike Ahammad DO Work Phone: [facility] 07-28-2023 06:21-0500 Body mass index (BMI) [Ratio] 33.52 kg/m2 [facility] Work Phone: [facility] 07-28-2023 06:21-0500 Body weight 97.07 kg [facility] Work Phone: [facility] Encounters Encounter Date Encounter Type Care Provider Facility Start: 03-13-2024 End: 03-14-2024 Refill Day Shaw HuertaTopher POULTRY PROCESSOR-MANAGEMENT CONSULTING Work Phone: [facility] Start: 03-04-2024 End: 03-04-2024 ambulatory [facility] Start: 01-08-2024 End: 01-08-2024 ambulatory M[facility] Start: 12-28-2023 End: 12-28-2023 ambulatory [facility] Start: 12-01-2023 End: 12-01-2023 ambulatory [facility] Start: 11-27-2023 End: 11-29-2023 ambulatory [facility] Start: 11-27-2023 End: 11-29-2023 Subsequent hospital visit by physician Nikki [facility] Xr [facility] Comment on above: Lumbar disc disease with radiculopathy Start: 11-23-2023 End: 11-25-2023 Subsequent hospital visit by physician Keke Mckeon Dr Room 4 [facility] Radiology Comment on above: 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) Start: 11-23-2023 End: 11-25-2023 ambulatory [facility] Start: 11-13-2023 End: 12-11-2023 ambulatory [facility] Start: 11-01-2023 End: 11-01-2023 ambulatory [facility] Start: 10-17-2023 End: 11-11-2023 ambulatory [facility] Start: 10-12-2023 End: 11-11-2023 ambulatory [facility] Start: 10-05-2023 End: 10-11-2023 ambulatory [facility] Start: 09-26-2023 End: 10-11-2023 ambulatory [facility] Start: 09-22-2023 End: 09-24-2023 ambulatory BETHANY Rashid [facility] Start: 09-11-2023 End: 10-11-2023 ambulatory [facility] Start: 08-25-2023 Refill Day Obando POULTRY PROCESSOR-MANAGEMENT CONSULTING Work Phone: [facility] Internal Medicine - Family Medicine Start: 08-22-2023 Orders Only Day Obando POULTRY PROCESSOR-MANAGEMENT CONSULTING Work Phone: [facility] - [facility] Start: 08-14-2023 End: 09-11-2023 [facility] Start: 08-11-2023 End: 08-11-2023 Transitional care manage srvc 14 day discharge Day Shaw Obando POULTRY PROCESSOR-MANAGEMENT CONSULTING Work Phone: 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 - [facility] Start: 06-07-2023 End: 06-09-2023 ambulatory [facility] Start: 05-19-2023 End: 05-24-2023 ambulatory [facility] Start: 05-15-2023 End: 05-17-2023 [facility] Start: 04-03-2023 End: 04-03-2023 ambulatory Jarrodus Rob Monterroso MD Facility: [facility] Start: 03-20-2023 End: 03-20-2023 ambulatory Jarrodus Kenas Loc ANDERSON Facility: [facility] Start: 12-08-2022 ambulatory NARENDRANATH LAKSHMIPATHY [...] Facility:[facility] Start: 08-09-2022 End: 08-10-2022 ambulatory DAY OBANDO Facility:[facility] Start: 08-03-2022 End: 08-04-2022 ambulatory DAY OBANDO Facility:[facility] Start: 04-21-2022 End: 04-22-[address] WALTER LITTLEJOHN Facility:[facility] Start: 01-20-2022 End: 01-21-[address] WALTER LITTLEJOHN Facility:[facility] Procedures Date Procedure Procedure Detail Performing Clinician Start: 12-28-2023 Adult depression scr eening assessment Day Obando POULTRY PROCESSOR-MANAGEMENT CONSULTING Work Phone: Start: 11-27-2023 Radex spine lumbosac ral only bending 2/3 views Mike Ahammad DO Work Phone: Start: 08-11-2023 Follow-up visit Follow-up DAY OBANDO Start: 08-11-2023 Adult depression scr eening assessment Day Obando POULTRY PROCESSOR-MANAGEMENT CONSULTING Work Phone: Start: 07-31-2023 Glucose blood reagen [...] Adult depression scr eening assessment Day Obando POULTRY PROCESSOR-MANAGEMENT CONSULTING Work Phone: Plan of Treatment Date Care Activity Detail Author Start: 01-11-2026 Screening for malign ant neoplasm of colon Colon Cancer Screening 3 Year Cologuard [facility] Start: 03-03-2025 DTaP,Tdap and Td Vaccines (4 - Td or Tdap) DTaP,Tdap and Td Vaccines (4 - Td or Tdap) [facility] Start: 03-03-2025 DTaP/Tdap/Td vaccine (4 - Td or Tdap) DTaP/Tdap/Td vaccine (4 - Td or Tdap) [facility] Start: 12-27-2024 Adult BMI Screening Adult BMI Screen ing [facility] Start: 12-27-2024 [facility] Start: 12-27-2024 Fall Risk Screening Fall Risk Screen ing [facility] Start: 12-27-2024 Tobacco Screening Tobacco Screening [facility] Start: 08-10-2024 Adult BMI Screening Adult BMI Screen ing [facility] Start: 03-01-2025 Depression Screening Depression Scre ening [facility] Start: 08-10-2024 Tobacco Screening Tobacco Screening [facility] Start: 07-31-2024 GFR test (Diabetes, CKD 3-4, OR last GFR 15-59) GFR test (Diabetes, CKD 3-4, OR last GFR 15-59) [facility] Start: 07-31-2024 Lipid panel Lipids [facility] Start: 07-29-2024 Hemoglobin A1c measurement A1C test (Diabetic or Prediabetic) [facility] Start: 03-30-2024 Adult BMI Screening Adult BMI Screen ing [facility] Start: 03-30-2024 Depression Screening Depression Scre [facility] Start: 03-30-2024 Tobacco Screening Tobacco Screening [facility] Start: 02-19-2024 End: 02-19-2024 Patient encounter procedure 02/19/2024 1:30 PM EDT Office Visit [facility] [address], [place] [place] [address] Mike Townsend DO [address] [place] [address] Scoli & Flex ext xrays [facility] Comment on above: Scoli & Flex ext xra ys Start: 02-11-2024 COVID-19 Vaccine ( season) COVID-19 Vaccine ( season) [facility] Start: 02-11-2024 Influenza vaccination Influenza Vacc ine [facility] Start: 01-26-2024 Abdominal aortic aneurysm screening Abdominal Aortic Aneurysm (AAA) Screen [facility] Start: 01-11-2024 Influenza vaccination Flu vacc ine (Season Ended) [facility] Start: 11-27-2023 End: 11-27-2023 Patient encounter procedure 11/27/2023 11:00 AM EDT Office Visit [facility] [address], [place] [place] [address] Letha Townsendubair, DO [address] [place] [address] Print PT OT [facility] Comment on above: Print PT OT Start: 11-10-2023 End: 11-10-2023 Patient encounter procedure 11/10/2023 8:40 AM EDT Office Visit [facility] [address] [place] [address] Day Obando, POULTRY PROCESSOR-MANAGEMENT CONSULTING [address] [place] [address] [facility] Start: 09-25-2023 End: 09-25-2023 Patient encounter procedure 09/25/2023 11:00 AM EDT Office Visit [facility] [address], [address] [place] [id number] Mike Townsend, DO [address] [place] [phone] 8 wk post op [facility] Comment on above: 8 wk post op Start: 08-14-2023 End: 08-14-2023 Patient encounter procedure 08/14/2023 9:30 AM EST Office Visit [facility] [address], [address] [place] [phone] Bethany Hwang, POULTRY PROCESSOR - MANAGEMENT CONSULTING [address] [place], [place] [id number] 2 wk post op-ahammad [facility] Comment on above: 2 wk post op-ahammad Start: 06-29-2023 End: 06-29-2023 Patient encounter procedure 06/29/2023 9:00 AM EST [facility] [address] [place] [address] Day Obando APRN-MANAGEMENT CONSULTING [address] [place] [address] [facility] Start: 02-10-2023 COVID-19 Vaccine ( season) COVID-19 Vaccine ( season) [facility] Start: 02-10-2023 Influenza vaccination Influenza Vacc ine [facility] Start: 01-10-2023 Influenza vaccination Flu vaccine (# 1) [facility] Start: 2019 Respiratory Syncytia l Virus (RSV) or age 60 yrs+ (1 - 1-dose 60+ series) Respiratory Syncytial Virus (RSV) or age 60 yrs+ (1 - 1-dose 60+ series) [facility] [employer] Start: 2009 Administration of varicella zoster vaccine Zoster (Shingles) Vaccine (1 of 2) [facility] Start: 2009 Screening for malign ant neoplasm of lung Low dose CT lung screening &/or counseling [facility] Start: 2009 Shingles vaccine (1 of 2) Shingles vaccine (1 of 2) [facility] [employer] [facility] Start: 01-26-2004 Screening for malign ant neoplasm of colon [facility] [employer] Start: 1977 Adult BMI Follow Up Plan Adult BMI Follow Up Plan [facility] Start: 1977 Diabetic foot examination Diabetic Foot Exam [facility] Start: 1977 Glaucoma screening Diabetic retinal exam [facility] Start: 1977 Hepatitis C screening Hepatitis C sc reen [facility] Start: 1977 Urine screening for protein Diabetic Alb to Cr ratio (uACR) test [facility] [employer] [facility] Start: 1974 HIV screening HIV screen [facility] [employer] Start: 1971 Depression Screen Depression Screen [facility] [employer] Start: 1969 Diabetic foot examination Diabetic foot exam [facility] Start: 1965 Pneumococcal 0-64 ye ars Vaccine (1 - PCV) Pneumococcal 0-64 years Vaccine (1 - PCV) [facility] Start: 1965 Pneumococcal 0-64 ye ars Vaccine (1 of 2 - PCV) Pneumococcal 0-64 years Vaccine (1 of 2 - PCV) [facility] Start: 1959 COVID-19 Vaccine (#1) COVID-19 Vacci ne (#1) [facility] [employer] Start: 1959 Glaucoma screening Diabetic Op hthalmology Exam [facility] Start: 1959 Urine screening for protein Urine Microalbumin [facility] End: 07-28-2023 Glucose [Mass/volume] in Serum or Plasma [facility] [employer] Comment on above: 4X Daily (AC & HS) u ntil discontinued starting 07/28/2023 One Time for 1 Occur rences starting 07/28/2023 until 07/28/2023 As Needed until disc ontinued starting 07/28/2023 Oxygen therapy [[facility] Data Set] Initiate Oxygen Therapy Protocol Respiratory Care Routine As Needed until discontinued starting 07/28/2023 [facility] Comment on above: As Needed until disc ontinued starting 07/28/2023 Spirometry panel Incentive jerome metry Respiratory Care Routine Every 2hr while awake until discontinued starting 07/28/2023 [facility] Comment on above: Every 2hr while awak e until discontinued starting 07/28/2023 Spirometry panel Incentive jerome metry RT Respiratory Care Routine Every 2hr while awake until discontinued starting 07/29/2023 [facility] Comment on above: Every 2hr while awak e until discontinued starting 07/29/2023 End: 11-23-2023 XR Cervical spine 2 or 3 Views [employer] Work Phone: Comment on above: 1 Occurrences starti ng 11/23/2023 until 11/23/2023 Immunizations Immunization Date Immunization Notes Care Provider Gilma cantu 03-03-2015 tetanus toxoid, redu latricia diphtheria toxoid, and acellular pertussis vaccine, adsorbed Day Obando POULTRY PROCESSOR-MANAGEMENT CONSULTING Work Phone: [facility] 05-26-2013 tetanus toxoid, redu latricia diphtheria toxoid, and acellular pertussis vaccine, adsorbed Day Obando POULTRY PROCESSOR-MANAGEMENT CONSULTING Work Phone: [facility] 07-05-2011 tetanus toxoid, redu latricia diphtheria toxoid, and acellular pertussis vaccine, adsorbed Day Obando POULTRY PROCESSOR-MANAGEMENT CONSULTING Work Phone: [facility] Work Phone: Payers Date Payer Category Payer Private Health Insurance [facility] [id number] 2022-Present [phone] [address] [address] [place] [address] [id number] [id number] 2022 Unknown 1959 Medicare [id number] 1959 Unknown [id number] 1959 Unknown [id number] 1959 Unknown [id number] 2.16.840.1.433948.3.579. 2.593 1959 Unknown [id number] 2.16.840.1.686427.3.579. 2.59 1959 Unknown [id number] 2.16.840.1.503618.3.579. 2.593 1959 Unknown [id number] 2.16.840.1.062568.3.579. 2.593 1959 Unknown [id number] 2.16.840.1.342280.3.579. 2.593 1959 Unknown [id number] 2.16.840.1.924173.3.579. 2.59 1959 Unknown [id number] 2.16.840.1.668705.3.579. 2.593 1959 Unknown [id number] 2.16.840.1.486152.3.579. 2.593 1959 Unknown [id number] 2.16.840.1.283444.3.579. 2.593 1959 Unknown [id number] 2.16.840.1.679248.3.579. 2.593 1959 Unknown [id number] 2.16.840.1.612733.3.579. 2.593 1959 Unknown [id number] 2.16.840.1.710393.3.579. 2.593 1959 Unknown [id number] 2.16.840.1.973381.3.579. 2.593 1959 Unknown [id number] 2.16.840.1.491931.3.579. 2.593 1959 Unknown [id number] 2.16.840.1.386471.3.579. 2.177 1959 Unknown [id number] 2.16.840.1.450880.3.579. 2.173 1959 Unknown [id number] 2.16.840.1.924375.3.579. 2.173 1959 Unknown [id number] 2.16.840.1.649351.3.579. 2.173 1959 Unknown [id number] 2.16.840.1.101784.3.579. 2.173 1959 Unknown [id number] 2.16.840.1.641805.3.579. 2.173 1959 Unknown [id number] 2.16.840.1.936399.3.579. 2.1286 1959 Unknown [id number] 2.16.840.1.609363.3.579. 2.1286 1959 Unknown [id number] 2.16.840.1.009323.3.579. 2.1286 1959 Unknown [id number] 2.16.840.1.904993.3.579. 2.128 1959 Unknown [id number] 2.16.840.1.294447.3.579. 2.1285 1959 Unknown [id number] 2.16.840.1.233461.3.579. 2.1285 1959 Unknown [id number] 2.16.840.1.384433.3.579. 2.1285 1959 Unknown [id number] 2.16.840.1.124070.3.579. 2.1285 1959 Unknown [id number] 2..840.1.071919.3.579. 2.1285 1959 Unknown [id number] 2..840.1.929942.3.579. 2.1285 1959 Unknown [id number] 2.840.1.974689.3.579. 2.1285 1959 Unknown [id number] 2.840.1.387661.3.579. 2.1285 1959 Unknown [id number] 2.840.1.844624.3.579. 2.1285 1959 Unknown [id number] 2.840.1.533483.3.579. 2. 1959 Unknown [id number] 2.840.1.701045.3.579. 2.175 1959 Unknown [id number] 2..840.1.787991.3.579. 2.175 1959 Unknown [id number] 2.840.1.594096.3.579. 2.175 1959 Unknown [id number] 2.16.840.1.597226.3.579. 2.175 1959 Unknown [id number] 2.840.1.388421.3.579. 2.175 1959 Unknown [id number] 2.16.840.1.053496.3.579. 2.196 1959 Unknown [id number] 2.16.840.1.120383.3.579. 2.196 1959 Unknown [id number] 2.16.840.1.359564.3.579. 2.196 1959 Unknown [id number] 2.16.840.1.744402.3.579. 2.196 Social History Date Type Detail Facility Start: 07-07-2022 End: 11-01-2023 Tobacco smoking status NHIS Ex-smoker [facility] Start: 06-18-1998 End: 06-18-2018 History of tobacco use Current smoker [facility] Start: 06-18-1998 End: 06-18-2018 History of tobacco use Cigarette Smoker [facility] Start: 07-23-2020 End: 07-07-2022 Cigarettes smoked current (pack per day) - Reported 1.5 [facility] Start: 07-07-2022 End: 11-01-2023 Tobacco use and exposure Smokeless tobacco non-user [facility] Start: 03-30-2023 End: 12-28-2023 Alcohol intake Current non-drinker of alcohol (finding) [facility] Start: 09-17-2018 End: 07-23-2020 Alcohol Use Disorder Identification Test - Consumption [AUDIT-C] [facility] Frequency of Alcohol Consumption Never [facility] Start: 1960 Sex Assigned At Not on file [facility] Start: 07-31-2023 End: 08-14-2023 Alcohol intake Lifetime non-drinker (finding) [employer] Has the electric, ga s, oil, or water company threatened to shut off services in your home in past 12Mo No [employer] (I/We) worried florian er (my/our) food would run out before (I/we) got money to buy more. Never true [employer] Medical Equipment Procedure Code Equipment Code Equipment Origin al Text Equipment Identifier Dates Brng Tib 24run35 mm 0d Kn Ant - [id number] Start: 03-27-2019 Cmnt Bn Bio 40gm Rpl [id number] - [id number] Start: 03-27-2019 Cmpt Ptlr Thn 31 mm 3 Pg Kn Ser - [id number] Start: 03-27-2019 Impl Spine Chapin Symphony 4.0mm 240mm - [id number] Start: 07-28-2023 Screw Spnl Polya x 5.5x30 Mm Oct For 4 Mm Chapin Ns Sym - [id number] Start: 07-28-2023 Screw Spnl Polya x 5.5x32 Mm Oct For 4 Mm [employer] Ns Sym - [id number] Start: 07-28-2023 Screw Spnl 3.5x1 4mm Symphony - [id number] Start: 07-28-2023 Screw Spinal F/Symphony Oct System - [id number] Start: 07-28-2023 Cmpt Fem Kn Lt 72.5mm Cr Cmnt - [id number] Start: 03-27-2019 Ty Tib 75mm Cocr Kn I Beam - [id number] Start: 03-27-2019 Goals Date Patient Goal Desired Activity /State Personal health goal Comment on above: Formatting of this n ote might be different from the original. Evaluation of progress towards goal: Maximize work w pt at discharge to strengthen lt knee Clinical Notes 01-20-2022 to 08-11-2023 Day Obando APRN-MANAGEMENT CONSULTING - 08/11/2023 10:30 AM Pedro Olson APRN - MANAGEMENT CONSULTING - 07/31/2023 1:19 PM Donna Gipson, PT - 07/31/2023 12:52 PM Jude Mcghee [...] and headaches. Objective Physical Exam Vitals reviewed. Domestic Travel Consultant present: Here with spouse. Constitutional: General: He [...] complication, without long-term current use of insulin ([facility]) Essential hypertension Other orders - metoprolol tartrate [...] Contreras 08/14/23 1023 documented in this encounter [facility] 07-31-2023 Hospital course Narrative Images from the original note were not included. Department of Neurosurgery Discharge Summary PATIENT NAME: Beau Lozano BIRTHDATE: 1960 DATE: 07/31/2023 PRIMARY CARE PHYSICIAN: Day Obando APRN - CNP DISCHARGE DATE: 07/31/2023 DISCHARGE DIAGNOSIS: Stenosis of cervical spine with myelopathy Patient Active Problem List Diagnosis Code 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) M48.02, G99.2 Primary hypertension I10 Type 2 diabetes mellitus (HCC) E11.9 DISPOSITION: Home PROCEDURES: Posterior lateral arthrodesis [...] as: KLOR-CON Vitamin D3 50 MCG (1999 [place]) Caps STOP taking these medications HYDROcodone-acetaminophen 5-325 [...] Your Medications These medications were sent to [address] - [phone] - [phone] [place] [id number] metoprolol tartrate 25 MG tablet oxyCODONE-acetaminophen 5-325 MG per tablet Diet: ADULT DIET; Regular; 4 carb choices (60 gm/meal) diet as tolerated Activity: Provided in AVS Wound Care: Daily and as needed Follow-up: in the NSG clinic as shown in AVS Time Spent for discharge: 30 minutes JULIETTE Dominique CNP 07/31/2023, 1:19 PM documented in this encounter [facility] 07-31-2023 History of Present illness Narrative Physical Therapy Facility/Department: [address] NEURO Physical Therapy Progress Note Name: [...] Standing - Dynamic: Fair Comments: with rwalker AM-PAC - Mobility AM-PAC Basic Mobility - Inpatient How much help [...] 3-5 steps with a railing?: A Little [facility] Inpatient Mobility Raw Score : 19 AM-[facility] Inpatient T-Scale Score : 45.44 Mobility Inpatient CMS 0-100% Score: 41.77 Mobility Inpatient CMS G-Code Modifier : CK Goals Short Term [...] from the original note were not included. [facility] Internal Medicine Teaching Residency Program Inpatient Daily Progress Note Patient: Beau Lozano Date of : 1960 Acct: [id number] Room: Admit date: 07/28/2023 Today's date: 07/31/23 Number [...] medical standpoint Soraida Frias PGY-3 Internal Medicine [place], [place] 11:02 AM 07/31/2023 Attestation and add [...] documented by the resident[place] [address]. Answering Service: Images from the original note [...] X.Serafin Palomino DO Neurosurgeon Neurosurgical oncologist Office: [phone] Cell: [id number] Images from the original note were not included. [facility] Internal Medicine Teaching Residency Program Inpatient Daily Progress Note Patient: Beau Lozano Date of : 1960 Acct: [id number] Room: [facility]0101- Admit date: 07/28/2023 Today's date: 07/30/23 Number [...] OT on board Discharge Planning / SW: manager summer discharge planning Terri Ayala MD Internal Medicine Resident, PGY-1 [facility], [place], [place] 07/30/2023, 7:00 AM Attestation and add [...] the resident. Prgressing satisfactorily [place] [address]. Answering Service: [facility] PROGRESS NOTE Shift date: 07/29/2023 Shift day: Monday Shift # 2 Room # 0101/0101-01 Name: Beau Lozano Anabaptism: Place of restoration: Referral: Routine Visit Admit Date & Time: 07/28/2023 5:37 AM Assessment: Beau Lozano is a 63 y.o. male in the hospital . Patient had family support present in room and appeared calm and coping. 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 Patient did not appear to mind fisheries biologist presence and engaged in conversation. Soap Mixer provided a supportive presence through active listening and words of affirmation. Outcome: Patient appeared receptive to fisheries biologist visit. Plan: Chaplains will remain available to offer spiritual and emotional support as needed. . [facility] [phone] Physical Therapy Facility/Department: [address] NEURO Physical Therapy Initial Assessment Name: Beau Lozano : 1960 Date of Service: 07/29/2023 Pt admitted for C2-T2 POSTERIOR FUSION, DECOMPRESSION (LEXII SPINE TABLE, PRONE, LI HEADHOLDER, C-ARM, O-ARM, SSEP MONITORING, FancyUY, STEALTH NAVIGATION done 07/28/23. Discharge Recommendations: In my [...] transfers CG+1, gait 120' CG+1, forward posture, [place] collar. Body Structures, Functions, Activity Limitations Requiring [...] d/t LE weakness/pain) Transfer Assistance: Independent Active Maintenance Job Titles: Yes Vision/Hearing Vision Vision: Impaired Vision Exceptions: [...] Fair;- Comments: with rwalker Exercise Treatment: ankle [id number] A/AROM Exercises: AAROM B hips, limited by [...] X.Serafin Palomino DO Neurosurgeon Neurosurgical oncologist Office: [phone] Cell: [phone] Images from the original note were not included. [facility] Internal Medicine Teaching Residency Program Inpatient Daily Progress Note Patient: Beau Lozano Date of : 1960 Acct: [id number] Room: 0101/0101-01 Admit date: 07/28/2023 Today's date: [...] OT on board Discharge Planning / SW: manager summer discharge planning Terir Ayala MD Internal Medicine Resident, PGY-1 [facility], [place], [place] 07/29/2023, 5:09 AM Attestation and add [...] 166* BP control satisfactory [place] [address]. Answering Service: Neurosurgery Post op Progress Note [...] remains in house. documented in this encounter [facility] 07-31-2023 Hospital Discharge instructions Soraida Frias MD [...] or concerns. The office phone number is [phone]. documented in this encounter [facility] 09-15-2022 Note CONSULTATION CONSULTATION DATE: 09/15/2022 TO: [...] our patients to inform us about any fren-exa-jatzfcs medications or herbal remedies/nutritional supplements/alternative remedies. 2. [...] options with their primary care provider. [facility] 08-09-2022 Note PROCEDURE: XR KNEE R T 3V COMPARISON: None. HISTORY: Pain of right knee joint FINDINGS: BONES:No acute fracture or dislocation. Mild degenerative osteoarthropathy with mild atrophy. SOFT TISSUES:Negative. No visible soft tissue swelling. EFFUSION:None visible. OTHER: Negative. IMPRESSION: Mild osteoarthritis Electronically authenticated by: GUILLERMO AMADOR Date: 2022-08-09 17:19 [facility] 08-09-2022 Note PAIN MANAGEMENT CONS ULTATION CONSULTATION [...] under fluoroscopic guidance. Will as well. [facility] 04-21-2022 Note CONSULTATION CONSULTATION DATE: 04/21/2022 HISTORY [...] up in the office post procedure. [facility] 01-20-2022 Note CONSULTATION CONSULTATION DATE: 01/20/2022 This [...] agrees with the plan of care. [facility] Evaluation note Diagnosis 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)- Primary 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) Primary hypertension Unspecified essential hypertension Type 2 diabetes mellitus (HCC) Type II or unspecified type diabetes mellitus without mention of complication, not stated as uncontrolled [facility] Diagnosis Type 2 diabetes mellitus without complication, without long-term current use of insulin ([facility])- Primary Essential hypertension Unspecified essential hypertension [facility] Diagnosis 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) documented in this encounter [facility] note* Diagnosis Lumbar disc disease with radiculopathy Displacement of lumbar intervertebral disc without myelopathy [facility] on filedocumented in [facility] on filedocument[facility] in this [facility] on filedocumented in this encounter [facility] filed[facility] this [facility] Summary Purpose Family History No Family History Records FoundNo Family History Records FoundNo Family History Records FoundNo Family History Records FoundNo Family History Records FoundNo Family History Records FoundNo Family History Records FoundNo Family History Records Found Advance Directives Latest Code Status on File Code Status Date Activated Date Inactivated Comments Full Code 03/27/2019 12:06 PM 03/28/2019 3:59 PM Latest Code Status on File Code Status Date Activated Date Inactivated Comments Full Code 07/28/2023 5:23 PM Latest Code Status on File Code Status Date Activated Date Inactivated Comments Full Code 07/28/2023 5:23 PM 07/31/2023 7:53 PM Date Activated Date Inactivated Comments 03/27/2019 12:06 PM 03/28/2019 3:59 PM Reason for Referral Specialty Diagnoses / Procedures Referred By Contac t Referred To Contact Physical Therapist Diagnoses 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) Pedro Mitchell, POULTRY PROCESSOR - MANAGEMENT CONSULTING [address] [address] Referral ID Status Reason Start Date Expiration Date Visits Requested Visits Authorized [id number] Pending Review Specialty Services Required 07/31/2023 01/27/2024 [...] CREATED AUTHOR AUTHOR'S ORGANIZ ATION 10/27/2022 [facility] DATE CREATED AUTHOR AUTHOR'S ORGANIZ ATION 05/26/2023 [facility] DATE CREATED AUTHOR AUTHOR'S ORGANIZ ATION 11/28/2023 [facility] DATE CREATED AUTHOR AUTHOR'S ORGANIZ ATION 12/11/2023 [facility] DATE CREATED AUTHOR AUTHOR'S ORGANIZ ATION 01/01/2024 [facility] DATE CREATED AUTHOR AUTHOR'S ORGANIZ ATION 02/20/2024 [facility] DATE CREATED AUTHOR AUTHOR'S ORGANIZ ATION 03/11/2024 [facility] Reason for Visit (unrecogniz ed section and content) Reason Comments Med Refill Specialty Diagnoses / Procedures Referred By Contac t Referred To Contact Diagnoses 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) 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) [M48.02, G99.2] Procedures [place] ARTHRD PST/PSTLAT TQ 1NTRSPC CRV BELW C2 SEGMENT [place] ALLOGRAFT FOR SPINE SURGERY ONLY MORSELIZED [place] AUTOGRAFT SPINE SURGERY LOCAL FROM SAME INCISION [place] MICROSURG TQS REQ USE OPERATING MICROSCOPE [place] STEREOTACTIC COMPUTER ASSISTED PX SPINAL [place] LAMINECTOMY W/O FFD > 2 VERT SEG CERVICAL [place] ARTHRODESIS PST/PSTLAT TQ 1NTRSPC EA ADDL NTRSPC [place] ARTHRODESIS PST/PSTLAT TQ 1NTRSPC EA ADDL NTRSPC [place] ARTHRODESIS PST/PSTLAT TQ 1NTRSPC EA ADDL NTRSPC [place] ARTHRODESIS PST/PSTLAT TQ 1NTRSPC EA ADDL NTRSPC [place] ARTHRODESIS PST/PSTLAT TQ 1NTRSPC EA ADDL NTRSPC [place] ARTHRODESIS PST/PSTLAT TQ 1NTRSPC EA ADDL NTRSPC [place] POSTERIOR SEGMENTAL INSTRUMENTATION 7-12 VRT SEG C2-T2 POSTERIOR FUSION, DECOMPRESSION (KIMMELL SPINE TABLE, PRONE, [place] HEADHOLDER, C-ARM, O-ARM, SSEP MONITORING, DEPUY, [employer] NAVIGATION, [facility] CONF# [id number]) *DR. YODER TO ASSIST* SHORT STAY Mike Townsend DO [address] [facility] [address] [place] [address] [facility] [address] [place] [address] Referral ID Status Reason Start Date Expiration Date Visits Re quested Visits Authorized [id number] 1 1 Reason Comments Follow-up Care Teams (unrecognized sec tion and content) Finished Garment Inspector Relationship Specialty Start Date End Date Walter Littlejohn DO [address], [place] [address] PCP - General Family Medicine 09/17/18 Finished Garment Inspector Relationship Specialty Start Date End Date Day Obando APRN - MANAGEMENT CONSULTING [address] [place] [address] PCP - General Family Medicine 04/10/23 Finished Garment Inspector Relationship Specialty Start Date End Date [facility] [address] [place] [address] PCP - General Internal Medicine 06/29/23 Finished Garment Inspector Relationship Specialty Start Date End Date Day Obando [facility] [address] [place] [address] PCP - General Internal Medicine 06/29/23 Finished Garment Inspector Relationship Specialty Start Date End Date Day Obando [facility] [address] [place] [address] PCP - General Internal Medicine 06/29/23 Finished Garment Inspector Relationship Specialty Start Date End Date Day Obando POULTRY PROCESSOR - [facility] [address] [place] [address] PCP - General Family Medicine 04/10/23 Finished Garment Inspector Relationship Specialty Start Date End Date Day Obando POULTRY PROCESSOR - [facility] [address] [place] [address] PCP - General Family Medicine 04/10/23 Finished Garment Inspector Relationship Specialty Start Date End Date [employer] POULTRY PROCESSOR - MANAGEMENT CONSULTING [address] [place] [address] PCP - General Family Medicine 04/10/23 Finished Garment Inspector Relationship Specialty Start Date End Date [employer] POULTRY PROCESSOR-MANAGEMENT CONSULTING [address] [place] [address] PCP - General Internal Medicine 06/29/23 Ordered Prescriptions (unrec ognized section and content) [...] Villagomez RN) 0431 (Given - Provider: Sweetie Villagomez, NANCY)1118 (Given - Provider: Ozzie Miranda RN)1745 (Due)2345 [...] Carranza RN) 0946 (Given - Provider: Lurdes Wiley, NANCY) [...] (See Alternative - Provider: Sweetie Villagomez RN) 08 (See Alternative - Provider: Ozzie Miranda RN)2099 (Due) famotidine (PEPCID) tablet 20 mg(Linked Group 1) 20 mg, Oral, 2 TIMES DAILY, First dose on Mon07/28/23 at 2100, Until Discontinued, Post-op 09 (Given - Provider: Kennedy Carranza RN)2006 (Given - Provider: Sweetie Villagomez RN) 0945 (Given - Provider: Lurdes Wiley RN)1920 (See Alternative - Provider: Sweetie Villagomez RN)1956 (Given - Provider: Sweetie Villagomez RN) 08 (Given - Provider: Ozzie Miranda RN)2099 (Due) [...] dose on Mon07/28/23 at 1815, Until Discontinued 926 (Given - Provider: Kennedy Carranza RN) 0945 [...] Wiley RN) 0837 (Given - Provider: Ozzie Miranda, NANCY) metoprolol tartrate (LOPRESSOR) tablet 12.5 mg 12.5 [...] mL/lumen, Post-op 0922 (Given - Provider: Kennedy Carranza, NANCY)2005 (Given - Provider: Sweetie Villagomez RN) 1015 (Not Given - Provider: Lurdes Wiley RN - Reason: Other)1956 (Given - Provider: Sweetie Villagomez RN) 0843 (Given - Provider: Ozzie Miranda RN)2100 (Due) Vitamin D (CHOLECALCIFEROL) tablet 2,000 Units 2,000 Units, Oral, DAILY, First dose on Mon07/28/23 at 1800, Until Discontinued, Post-op 0922 (Given - Provider: Kennedy Carranza RN) 0948 [...] Marshall RN)0554 (Given - Provider: Sweetie Villagomez RN)8328 (Given - Provider: Lurdes Wiley RN) glucagon [...] Carranza, NANCY)1539 (Given - Provider: Kennedy Carranza, RN)2006 (Given - Provider: Sweetie Villagomez, NANCY)2303 [...] RN) 0102 (Given - Provider: Susana Marshall, RN)0553 (Given - Provider: Sweetie Villagomez RN)0945 (Given - Provider: Lurdes Wiley RN)1327 (Given - Provider: Lurdes Wiley RN)1746 (Given - Provider: Lurdes Wiley, NANCY)214 (Given - Provider: Sweetie Villagomez RN) 0147 [...] Wiley RN)2149 (See Alternative - Provider: Sweetie Villagomez, NANCY) 0147 (See Alternative - Provider: Sweetie Villagomez [...] BE BASED ON THE PRIMARY CLINICAL RECORDS. [facility]. provides no warranty or guarantee of the accuracy or completeness of information in this document.
[2024-03-25 07:07] VITALS: BP 110/74; PULSE 80; TEMP 37.3; O2SAT 97
[2024-03-25 07:13] LABS: Glucometer 135 mg/dL (74-106)
[2024-03-25] MEDS: 0.9 % SODIUM CHLORIDE 500 ML IV (07:20)
[2024-03-25] MEDS: BUPIVACAINE HCL 0.25% PF 25 MG/10 ML VIAL 4 ML INJ (07:59)
[2024-03-25] MEDS: LIDOCAINE HCL 2% 400 MG/20 ML MDV INJ (08:00)
[2024-03-25] MEDS: TRIAMCINOLONE ACETONIDE 40 MG/ML VIAL 80 MG INJ (08:00)
[2024-03-25 08:13] VITALS: BP 113/69; PULSE 81; TEMP 36.7; O2SAT 94
--- NOTE | 2024-03-25 08:16 | P.ON_ITS ---
Date of procedure: 03/25/24 Pre-op diagnosis: Pain due to lumbar spondylosis without myelopathy Post-op diagnosis: same as pre-op Procedure: Procedure: Bilateral L4-5 L5-S1 radiofrequency ablation Medications: Bupivacaine 0.25% 6cc, lidocaine 2% 6cc, kenalog 80mg The patient was seen and examined in the preoperative holding area.? The site was marked.? Written informed consent was obtained and placed on the chart.? The patient was brought to the medical procedure unit and placed in the prone position.? A timeout was completed verifying correct patient, procedure, positioning, and special requirements.? The skin overlying the target points, the designated medial branch, were prepped and draped in the usual sterile fashion.? The target point was achieved with a 20-gauge 15 cm with a 10 mm curved active tip radiofrequency cannula under direct fluoroscopic visualization.? The needle was inserted at level L4 on the right side. Needle tip position was confirmed with lateral fluoroscopic position.? Motor stimulation was carried out at 2 Hz up to 5 volts with the absence of extremity activity.? This was repeated at level L5, S1 on right side.?? Sensory stimulation was carried out.? Concordant pain was realized at the above- mentioned sites.? Then radiofrequency lesioning was carried out times 90 seconds at 80 degrees times 2 lesions at each level.? The radiofrequency probe was removed prior to cannula removal.? The above-mentioned injectate was placed in 1 mL increments.? The needle was removed. The same procedure, with the same steps, was then completed on the left side at the same levels. Insertion sites were covered.? The patient was taken to the postoperative recovery area and monitored for an appropriate length of time before being found suitable for discharge in the company of a responsible adult.? Anesthesia: MAC Surgeon: Macey Monterroso Pathology: none sent Condition: stable Disposition: no change
[2024-03-25 08:20] VITALS: BP 112/69; PULSE 85; O2SAT 96
== END 2024-03-25 08:30 | disposition home or self-care (01) ==
LOC: SURGOUT 07:02
PROVIDERS: PCP Family Medicine; Visit Provider Anesthesiology
PROC: (CPT 1992; principal; 2024-03-25 07:50)
DX: M47.816 Spondylosis without myelopathy or radiculopathy, lumbar region (principal)
CPT/HCPCS: 36415; 64635; 64636; 82948; J0665; J2250; J2704; J3301

== ENCOUNTER 2024-04-17 07:59 | Outpatient (OUT) | payer OTHER, MEDICARE, SELFPAY ==
--- OUTSIDE RECORDS SUMMARY | 2024-04-17 08:14 | XMS_ITS | CCD ---
Author Organization [facility] Care Team Providers Care Fender Repairer Name Role Phone LAKSHMIPATHY ., NARENDRANATH Consulting [...] FURLONG, DR WALTER Toney Primary Care Unavailable WILMINGTON, DR GUILLERMO Braun Consulting Unavailable TOPHER, DAY [...] Unavailable Furlong Walter MOY Primary Care Provider [phone] Topher EMPLOYEE RELATIONS CONSULTANT - [facility], Day Squires Primary Care Provider Topher EMPLOYEE RELATIONS CONSULTANT-LAND MANAGEMENT SUPERVISOR, Day Primary Care Provider MIKE TOWNSEND Attending [...] 12/30/2022 Active amLODIPine 10 mg oral tablet (15 sources) Dihydropyridine Calcium Channel Reji Start: 12-18-2023 take 1 tablet by mouth in the morning amLODIPine (NORVASC) 10 mg tablet TAKE 1 TABLET(10 MG) BY MOUTH IN THE MORNING 90 tablet 12/18/2023 Active Start: 01-20-2023 End: 08-22-2023 take 1 tablet by mouth once daily amLODIPine (NORVASC) 10 MG tablet Take 1 tablet by mouth daily 0 04/20/2023 Active baclofen 10 mg oral tablet (9 sources) gamma-Aminobutyric Acid-ergic Agonist take 1 tablet [...] Active cyclobenzaprine hydrochloride 10 mg oral tablet (11 sources) Muscle Relaxant Start: 2023 End: 2023 cyclobenzaprine (FLEXERIL) tablet 10 mg Start: 09-01-2022 take 1 tablet by jacques th every eight hours as needed cyclobenzaprine (FLEXERIL) 10 mg tablet Take 1 tablet (10 mg total) by mouth every 8 (eight) hours as needed for muscle spasms. 30 tablet 1 09/01/2022 Active diclofenac sodium 50 mg delayed release oral tablet (13 sources) Nonsteroidal Anti-inflammatory Drug Start: 10-12-2023 take 2 tablets by mouth twice daily diclofenac (VOLTAREN) 50 mg EC tablet TAKE 2 TABLETS BY MOUTH TWICE DAILY 10/12/2023 Active Start: 04-21-2022 take 1 tablet by jacques th every four hours as needed for pain diclofenac (VOLTAREN) 75 MG EC tablet Take 1 tablet by mouth every 4 hours as needed for Pain 0 05/02/2023 Active empagliflozin 25 mg oral tablet (15 sources) Sodium-Glucose Cotransporter 2 Inhibitor Start: 03-30-2023 [...] 20 mg gabapentin 300 mg oral capsule (17 sources) Anti-epileptic Agent Start: 07-31-2023 gabapenti n [...] Start: 06-27-2022 take 1 capsule by mo vah once daily gabapentin (NEURONTIN) 100 mg capsule [...] mg / lisinopril 20 mg oral tablet (15 sources) Thiazide Diuretic, Angiotensin Converting Enzyme Inhibitor Start: 12-01-2023 End: 04-15-2024 take 2 tablets by mouth once daily lisinopril-hydroCHLOROthiazide (PRINZIDE,ZESTORETIC) 20-12.5 mg per tablet TAKE 2 TABLETS BY MOUTH EVERY DAY 180 tablet 1 04/15/2024 Active Start: 04-21-2023 End: 08-22-2023 take 2 [...] 40 mg lovastatin 10 mg oral tablet (14 sources) HMG-CoA Reductase Inhibitor Start: 04-21-2023 End: [...] 07/19/2023 Active take 1 tablet by jacques every four hours as needed for pain metaxalone (SKELAXIN) 800 MG tablet Take 1 tablet by mouth every 4 hours as needed for Pain 0 Active metFORMIN hydrochloride 500 mg oral tablet (12 sources) Biguanide Start: 02-13-2024 take 2 tablets by mouth once daily in the morning, then take 2 tablets by mouth once daily at mealtime metFORMIN (GLUCOPHAGE) 500 mg tablet TAKE 2 TABLETS BY MOUTH EVERY MORNING AND 2 TABLETS EVERY EVENING WITH MEALS 360 tablet 02/13/2024 Active Start: 06-01-2023 take 2 tablets by mo [facility] once daily in the morning metFORMIN [...] Active metoprolol tartrate 25 mg oral tablet (16 sources) beta-Adrenergic Reji Start: 12-01-2023 take 0.5 [...] spray (4 sources) Opioid Antagonist Start: 10-14-19 naloxone (NARCAN) 4 mg/actuation spray,non-aerosol nasal spray CALL 911. SPR CONTENTS OF ONE SPRAYER (0.1ML) INTO ONE NOSTRIL. REPEAT IN 2-3 MIN IF SYMPTOMS OF OPIOID EMERGENCY PERSIST, ALTERNATE NOSTRILS 0 10/13/2022 Active oxyCODONE (1 source) Opioid Agonist Start: 07-28-19 24 oxyCODONE (ROXICODONE) immediate release tablet 5 mg phentermine hydrochloride 37.5 mg oral capsule (5 sources) Sympathomimetic Amine Anorectic Start: 12-28-19 24 take [...] chloride 10 meq extended release oral tablet (12 sources) Start: 10-17-19 End: 04-15-20 potassium chloride (K-TAB,KLOR-CON) 10 MEQ CR tablet TAKE 1 TABLET BY MOUTH DAILY 90 tablet 1 04/15/2024 Active Start: 07-28-2023 10 mEq, Oral, DAILY, First dose on Mon07/28/23 at 1745, Until Discontinued Do not crush or break. Post-op Start: 04-21-2023 End: 07-20-2023 take 1 tablet by mouth once daily potassium chloride (KLOR-CON) 10 MEQ extended release tablet Take 1 tablet by mouth daily 0 04/21/2023 Active traMADol hydrochloride 50 mg oral tablet (13 sources) Opioid Agonist Start: 04-08-2019 End: 07-27-2023 [...] mins. Post-op cholecalciferol 0.025 mg oral tablet (15 sources) Vitamin D Start: 07-28-2023 take 2000 [...] E) injection 5 mg polyethylene glycol [id number] mg powder for oral solution (1 source) Osmotic Laxative Start: 07-28-2023 17 g, Oral, DAILY, First dose on Mon07/28/23 at 1745, Until Discontinued, Post-op sennosides, jail 8.6 mg oral tablet (1 source) Start: [...] Da te Episodic/Chronic Diabetes mellitus without complication (18 sources) Type 2 diabetes mellitus without complications; Translations: [Type 2 diabetes mellitus] Onset: 07-19-2019 02-25-2022 Chronic Disorders of lipid metabolism (18 sources) Hyperlipidemia; Translations: [Other hyperlipidemia] Onset: 03-27-2019 03-27-2019 Chronic Essential hypertension (20 sources) Essential hypertension; Translations: [Essential (primary) hypertension] Onset: 03-27-2019 Resolved: 07-01-2022 03-27-2019 Chronic Fluid and electrolyte disorders (10 sources) Hypokalemia; Translations: [Hypokalemia] Onset: 02-25-2022 02-25-2022 Episodic Nutritional deficiencies (9 sources) Vitamin D deficiency; Translations: [Vitamin D deficiency, unspecified] Onset: 02-25-2022 02-25-2022 Chronic Osteoarthritis (19 sources) Unilateral primary osteoarthritis, right knee; Translations: [...] Episodic Other nutritional; endocrine; and metabolic disorders (9 sources) High density lipoprotein deficiency ; Translations: [Lipoprotein deficiency] Onset: 08-31-2017 02-25-2022 Chronic Other nutritional; endocrine; and metabolic disorders (9 sources) Obesity; Translations: [Obesity, unspecified] Onset: 04-12-2016 [...] Classification Problem Date Documented Da te Episodic/Chronic Mood disorders (9 sources) Mood disorders Onset: 03-30-2023 Resolved: 12-28-2023 03-30-2023 Other bone disease and musculoskeletal deformities (9 sources) Somatic dysfunction of thoracic region; Translations: [Segmental and somatic dysfunction of thoracic region] Onset: 09-01-2022 09-01-2022 Episodic Other bone disease and musculoskeletal deformities (1 source) Segmental and somatic dysfunction of thoracic region; Translations: [Segmental and somatic dysfunction of thoracic region] Onset: 09-01-2022 Episodic Other non-traumatic joint disorders (18 sources) Pain in left knee; Translations: [Pain in joint, lower leg] Onset: 09-17-2018 09-17-2018 Episodic Other screening for suspected conditions (not mental disorders or infectious disease) (9 sources) Other specified abnormal findings of blood chemistry; Translations: [Other abnormal blood chemistry] Onset: 03-30-2023 03-30-2023 Episodic Screening and history of mental health and substance abuse codes (13 sources) Personal history of nicotine dependence; Translations: [...] pronounced at L3-4 to a severe degree. [facility] RIS CONSOLIDATED EXAMINATION: TWO XRAY VIEWS [...] intact. The paravertebral soft tissues are unremarkable. [facility] Blake Sneed MD - 11/29/2023 EXAMINATION: [...] pronounced at L3-4 to a severe degree. [facility] No Panel InformationOrdered By: Blake Hale on 11-29-2023 [facility] Work Phone: XR LUMBAR SPINE FLEXION AND [...] Blake Hale MD 11/29/23 Final result Normal [facility] XR SPINE ENTIRE (2-3 VIEWS)o n 11-29-2023 [...] Blake Hale MD 11/29/23 Final result Normal [facility] No Panel Informationon 11-26 Radiology Study observation (narrative) [facility] XR CERVICAL SPINE (2-3 VIEWS )on 11-27-2023 [...] Martinez Kelly MD 11/27/23 Final result Normal [facility] XR CERVICAL SPINE (2-3 VIEWS )on [...] Cortez Peralta DO 09/24/23 Final result Normal [facility] Basic Metab w/rfx MGon 07-31 Anion gap [Moles/Vol] 11 mmol/L Normal 9-17 [facility] Comment on above: Performed By: #### T YS #### [address] [address] Horticulture Supervisor: Kan Craig MD Calcium [Mass/Vol] 9.0 mg/dL Normal 8.6-10.4 [facility] Comment on above: Performed By: #### T YS #### [address] [address] Horticulture Supervisor: Kan Craig MD Chloride [Moles/Vol] 98 mmol/L Normal 98-107 [facility] Comment on above: Performed By: #### T YS #### [address] [address] Horticulture Supervisor: Kan Craig MD CO2 [Moles/Vol] 24 mmol/L Normal 20-31 [facility] Comment on above: Performed By: #### T YS #### [address] [address] Horticulture Supervisor: Kan Craig MD Creatinine [Mass/Vol] 0.6 mg/dL Low 0.7-1.2 [facility] Comment on above: Performed By: #### T YS #### [address] [address] Horticulture Supervisor: Kan Craig MD GFR/1.73 sq M.predicted among non-blacks MDRD (S/P/Bld) [Vol rate/Area] mL/min/{1.73_m2} Normal >60 [facility] Comment on above: Result Comment: These [...] secretion. Performed By: #### T YS #### [facility] [address] [place] [address] Horticulture Supervisor: Kan Craig MD Glucose [Mass/Vol] 155 mg/dL High 70-99 [facility] Comment on above: Performed By: #### T YS #### [facility] [address] [place] [address] Horticulture Supervisor: Kan Craig MD Potassium [Moles/Vol] 3.7 mmol/L Normal 3.7-5.3 [facility] Comment on above: Performed By: #### T YS #### [facility] [address] [place] [address] Horticulture Supervisor: Kan Craig MD Sodium [Moles/Vol] 133 mmol/L Low 135-144 [facility] Comment on above: Performed By: #### T YS #### [facility] [address] [place] [address] Horticulture Supervisor: Kan Craig MD Urea nitrogen [Mass/Vol] 14 mg/dL Normal 8-23 [facility] Comment on above: Performed By: #### T YS #### [facility] [address] [place] [address] Horticulture Supervisor: Kan Craig MD Basic Metabolic Panel w/ Ref analisa to MGon 07-31-2023 Anion gap [Moles/Vol] 11 mmol/L 9 - 17 mmol/L [facility] Calcium [Mass/Vol] 9.0 mg/dL 8.6 - 10. 4 mg/dL [facility] Chloride [Moles/Vol] 98 mmol/L 98 - 10 7 mmol/L [facility] CO2 [Moles/Vol] 24 mmol/L 20 - 31 mmol/L [facility] Creatinine [Mass/Vol] 0.6 mg/dL Low 0.7 - 1.2 mg/dL [facility] GFR/1.73 sq M.predicted MDRD (S/P/Bld) [Vol rate/Area] - PINF [facility] Comment on above: These results are not [...] 155 mg/dL High 70 - 99 mg/dL [facility] Potassium [Moles/Vol] 3.7 mmol/L 3.7 - 5.3 mmol/L [facility] Sodium [Moles/Vol] 133 mmol/L Low 135 - 144 mmol/L [facility] Urea nitrogen [Mass/Vol] 14 mg/dL 8 - 23 mg/dL [facility] CBC with Auto Differentialon 07-31-2023 Basophils (Bld) [#/Vol] 0.09 10*3/uL [facility] Basophils/100 WBC (Bld) 1 % 0 - 2 % [facility] Eosinophils (Bld) [#/Vol] 0.09 10*3/uL [facility] Eosinophils/100 WBC (Bld) 1 % 1 - 4 % [facility] Erythrocyte distribution width (RBC) [Ratio] 11.9 % 11.8 - 14.4 % [facility] Hematocrit (Bld) [Volume fraction] 45.5 % 40.7 - 50.3 % [facility] Hemoglobin (Bld) [Mass/Vol] 15.3 g/dL 13.0 - 17.0 g/dL [facility] Immature granulocytes (Bld) [#/Vol] [facility] Immature granulocytes/100 WBC (Bld) 0 % 0 [facility] Interpretation and review of laboratory results Abnormal [facility] Lymphocytes/100 WBC (Bld) 22 % Low 24 - 43 % [facility] Lymphocytes/100 WBC (Bld) 1.89 % [facility] MCH (RBC) [Entitic mass] 31.3 pg 25.2 - 33.5 pg [facility] MCHC (RBC) [Mass/Vol] 33.6 g/dL 28.4 - 34.8 g/dL [facility] MCV (RBC) [Entitic vol] 93.0 fL 82.6 - 102.9 fL [facility] Monocytes/100 WBC (Bld) 11 % 3 - 12 % [facility] Monocytes/100 WBC (Bld) 0.96 % [facility] Neutrophils/100 WBC (Bld) 65 % 36 - 65 % [facility] Nucleated RBC/100 WBC (Bld) [Ratio] 0.0 % 0.0 per 100 WBC [facility] Platelet mean volume (Bld) [Entitic vol] 10.6 fL 8.1 - 13.5 fL [facility] Platelets (Bld) [#/Vol] 234 10*3/uL [facility] RBC (Bld) [#/Vol] 4.89 10*6/uL 4.21 - 5.7 7 m/uL [facility] Segmented neutrophils/100 WBC (Bld) 5.57 % [facility] WBC other (Bld) [#/Vol] 8.6 [facility] CBC with Diffon 07-31-2023 Abs. Basophil 0.09 k/uL Normal 0.00-0.20 [facility] Comment on above: Performed By: #### T YS #### [facility] [address] [place] [address] Horticulture Supervisor: Kan Craig MD Abs.Imm.Granulocyte <0.03 Normal 0.00-0.30 [facility] Comment on above: Performed By: #### T YS #### [facility] [address] [place], [place] [id number] Horticulture Supervisor: Kan Craig MD Abs.Neutrophil (Seg) 5.57 k/uL Normal 1.50-8.10 [facility] Comment on above: Performed By: #### T YS #### [address] [address] Horticulture Supervisor: Kan Craig MD Basophils/100 WBC (Bld) 1 % Normal 0-2 [facility] Comment on above: Performed By: #### T YS #### [address] [address] Horticulture Supervisor: Kan Craig MD Eosinophils (Bld) [#/Vol] 0.09 10*3/uL Normal 0.00-0.44 [facility] Comment on above: Performed By: #### T YS #### [address] [address] Horticulture Supervisor: Kan Craig MD Eosinophils/100 WBC (Bld) 1 % Normal 1-4 [facility] Comment on above: Performed By: #### T YS #### [address] [address] Horticulture Supervisor: Kan Craig MD Erythrocyte distribution width (RBC) [Ratio] 11.9 % Normal 11.8-14.4 [facility] Comment on above: Performed By: #### T YS #### [address] [address] Horticulture Supervisor: Kan Craig MD Hematocrit (Bld) [Volume fraction] 45.5 % Normal 40.7-50.3 [facility] Comment on above: Performed By: #### T YS #### [address] [address] Horticulture Supervisor: Kan Craig MD Hemoglobin (Bld) [Mass/Vol] 15.3 g/dL Normal 13.0-17.0 [facility] Comment on above: Performed By: #### T YS #### [address] [address] Horticulture Supervisor: Kan Craig MD Immature granulocytes/100 WBC (Bld) 0 % Normal 0 [facility] Comment on above: Performed By: #### T YS #### [address] [address] Horticulture Supervisor: Kan Craig MD Lymphocytes (Bld) [#/Vol] 1.89 10*3/uL Normal 1.10-3.70 [facility] Comment on above: Performed By: #### T YS #### [address] [address] Horticulture Supervisor: Kan Craig MD Lymphocytes/100 WBC (Bld) 22 % Low 24-43 [facility] Comment on above: Performed By: #### T YS #### [address] [address] Horticulture Supervisor: Kan Craig MD MCH (RBC) [Entitic mass] 31.3 pg Normal 25.2-33.5 [facility] Comment on above: Performed By: #### T YS #### [address] [address] Horticulture Supervisor: Kan Craig MD MCHC (RBC) [Mass/Vol] 33.6 g/dL Normal 28.4-34.8 [facility] Comment on above: Performed By: #### T YS #### [address] [address] Horticulture Supervisor: Kan Craig MD MCV (RBC) [Entitic vol] 93.0 fL Normal 82.6-102.9 [facility] Comment on above: Performed By: #### T YS #### [address] [address] Horticulture Supervisor: Kan Craig MD Monocytes (Bld) [#/Vol] 0.96 10*3/uL Normal 0.10-1.20 [facility] Comment on above: Performed By: #### T YS #### [address] [address] Horticulture Supervisor: Kan Craig MD Monocytes/100 WBC (Bld) 11 % Normal 3-12 [facility] Comment on above: Performed By: #### T YS #### [address] [address] Horticulture Supervisor: Kan Craig MD Neutrophil (Seg) 65 % Normal 36-65 [facility] Comment on above: Performed By: #### T YS #### [address] [address] Horticulture Supervisor: Kan Craig MD NRBC Automated 0.0 per 100 WBC Normal 0.0 [facility] Comment on above: Performed By: #### T YS #### [address] [address] Horticulture Supervisor: Kan Craig MD Platelet mean volume (Bld) [Entitic vol] 10.6 fL Normal 8.1-13.5 [facility] Comment on above: Performed By: #### T YS #### [address] [address] Horticulture Supervisor: Kan Craig MD Platelets (Bld) [#/Vol] 234 10*3/uL Normal 138-453 [facility] Comment on above: Performed By: #### T YS #### [address] [address] Horticulture Supervisor: Kan Craig MD RBC (Bld) [#/Vol] 4.89 10*6/uL Normal 4.21-5.77 [facility] Comment on above: Performed By: #### T YS #### [facility] [address] [place] [address] Horticulture Supervisor: Kan Craig MD WBC (Bld) [#/Vol] 8.6 10*3/uL Normal 3.5-11.3 [facility] Comment on above: Performed By: #### T YS #### [facility] [address] [place] [address] Horticulture Supervisor: Kan Craig MD EKG 12 LeadOrdered By: Froilan Hartmann on 07-31-2023 Atrial Rate 114 BPM [facility] Work Phone: P [place] 48 degrees [employer] [employer] Work Phone: P-R Interval 168 ms [facility] Work Phone: Q-T Interval 316 ms [facility] Work Phone: QRS Duration 86 ms [facility] [employer] Work Phone: QTc Calculation (Bazett) 435 ms [facility] Work Phone: R [place] -37 degrees [employer] Work Phone: T [place] 37 degrees [employer] Work Phone: Ventricular Rate 114 BPM [facility] [employer] Work Phone: [employer] Work Phone: EKG 12 Leadon 07-31-2023 Sinus [...] 2023 Glucose [Mass/Vol] 177 mg/dL High 75-110 [facility] Glucose [Mass/Vol] 166 mg/dL High 75-110 [facility] Lipid Panelon 07-31-2023 Cholesterol [Mass/Vol] 141 mg/dL NINF - 200 mg/dL [facility] Comment on above: Cholesterol Guidelines: <200 Desirable 200-240 Borderline >240 Undesirable Cholesterol in HDL [Mass/Vol] 34 mg/dL Low 40 - PINF mg/dL [facility] Comment on above: HDL Guidelines: <40 Undesirable 40-59 Borderline >59 Desirable Cholesterol in LDL [Mass/Vol] 73 mg/dL 0 - 130 mg/dL [facility] Comment on above: LDL Guidelines: <100 Desirable 100-129 Near to/above Desirable 130-159 Borderline >159 Undesirable Direct (measured) LDL and calculated LDL are not interchangeable tests. Cholesterol.total/Chol esterol in HDL [Mass ratio] 4.1 {ratio} NINF - 5 [facility] Triglyceride [Mass/Vol] 169 mg/dL High NINF - 150 mg/dL [facility] Comment on above: Triglyceride Guidelines: <150 Desirable 150-199 Borderline 200-499 High >499 Very high Based on AHA Guidelines for fasting triglyceride, March 2012. Lipid Profileon 07-31-2023 Cholesterol [Mass/Vol] 141 mg/dL Normal <200 [facility] Comment on above: Result Comment: Cholesterol Guidelines: <200 Desirable 200-240 Borderline >240 Undesirable Performed By: #### T YS #### [facility] [address] [place] [id number] Horticulture Supervisor: Kan Craig MD Cholesterol in HDL [Mass/Vol] 34 mg/dL Low >40 [facility] Comment on above: Result Comment: HDL Guidelines: <40 Undesirable 40-59 Borderline >59 Desirable Performed By: #### T YS #### [facility] [address] [place] [id number] Horticulture Supervisor: Kan Craig MD Cholesterol in LDL [Mass/Vol] 73 mg/dL Normal 0-130 [facility] Comment on above: Result Comment: LDL Guidelines: <100 Desirable 100-129 Near to/above Desirable 130-159 Borderline >159 Undesirable Direct (measured) LDL and calculated LDL are not interchangeable tests. Performed By: #### T YS #### [facility] [address] [place], [place] [id number] Horticulture Supervisor: Kan Craig MD Cholesterol.total/Chol esterol in HDL [Mass ratio] 4.1 {ratio} Normal <5 [facility] Comment on above: Performed By: #### T YS #### [facility] [address] [place], [place] [id number] Horticulture Supervisor: Kan Craig MD Triglyceride [Mass/Vol] 169 mg/dL High <150 [facility] Comment on above: Result Comment: Triglyceride Guidelines: <150 Desirable 150-199 Borderline 200-499 High >499 Very high Based on AHA Guidelines for fasting triglyceride, March 2012. Performed By: #### T YS #### [facility] [address] [place], [place] [id number] Horticulture Supervisor: Kan Craig MD No Panel Informationon 07-31 Interpretation and review of laboratory results Abnormal [facility] POC Glucose Fingerstickon Glucose [Mass/Vol] 177 mg/dL High 75 - 110 mg/dL [facility] Interpretation and review of laboratory results Abnormal [facility] Glucose [Mass/Vol] 166 mg/dL High 75 - 110 mg/dL [facility] Interpretation and review of laboratory results Abnormal [facility] CT CHEST PULMONARY EMBOLISM W CONTRASTon 07-30-2023 [...] Adan Hodges MD 07/30/23 Final result Normal [facility] 1. No evidence of pulmonary embolism or acute pulmonary abnormality. 2. Three-vessel coronary artery calcification. [facility] EXAMINATION: CTA OF THE CHEST 07/30/2023 [...] No acute bone or soft tissue abnormality. [facility] Adan Hodges MD - 07/30/2023 EXAMINATION: [...] pulmonary abnormality. 2. Three-vessel coronary artery calcification. [facility] Radiology Study observation (narrative) [facility] CT CHEST PULMONARY EMBOLISM W CONTRASTOrdered By: Adan Hodges on 07-30-2023 [facility] [employer] Work Phone: Glucose,Whole Bloodon 2023 Glucose [Mass/Vol] 167 mg/dL High 75-110 [facility] Glucose [Mass/Vol] 149 mg/dL High 75-110 [facility] Glucose [Mass/Vol] 153 mg/dL High 75-110 [facility] Glucose [Mass/Vol] 142 mg/dL High 75-110 [facility] Hemoglobin A1Con 07-30-2023 Average glucose Estimated from glycated hemoglobin (Bld) [Mass/Vol] 137 mg/dL [facility]U Comment on above: The ADA and AACC rec ommend providing the estimated average glucose result to permit better patient understanding of their HBA1c result. HbA1c (Bld) [Mass fraction] 6.4 % High 4.0 - 6.0 % [facility] Interpretation and review of laboratory results Abnormal [facility] Glucose [Mass/Vol] 137 mg/dL Normal [facility] Comment on above: Result Comment: The ADA and AACC recommend providing the estimated average glucose result to permit better patient understanding of their HBA1c result. Performed By: #### B MPX, CDP, GLYHGB ####[facility] [id number] [place], [place] [id number] Lab Director: Kan Craig MD HbA1c (Bld) [Mass fraction] 6.4 % High 4.0-6.0 [facility] Comment on above: Performed By: #### B MPX, CDP, GLYHGB ####[facility] [id number] [place], [place] [id number] lab Director: Kan Craig MD POC Glucose Fingerstickon Glucose [Mass/Vol] 167 mg/dL High 75 - 110 mg/dL [facility] Interpretation and review of laboratory results Abnormal [facility] Glucose [Mass/Vol] 149 mg/dL High 75 - 110 mg/dL [facility] Interpretation and review of laboratory results Abnormal [facility] Glucose [Mass/Vol] 153 mg/dL High 75 - 110 mg/dL [facility] Interpretation and review of laboratory results Abnormal [facility] Glucose [Mass/Vol] 142 mg/dL High 75 - 110 mg/dL [facility] Interpretation and review of laboratory results Abnormal [facility] Basic Metab w/rfx MGon 07-29 Anion gap [Moles/Vol] 11 mmol/L Normal 9-17 [facility] Comment on above: Performed By: #### T YS #### [facility] [address] [place], [place] [id number] Horticulture Supervisor: Kan Craig MD Calcium [Mass/Vol] 8.5 mg/dL Low 8.6-10.4 [facility] Comment on above: Performed By: #### T YS #### [facility] [address] [place] [address] Horticulture Supervisor: Kan Craig MD Chloride [Moles/Vol] 105 mmol/L Normal 98-107 [facility] Comment on above: Performed By: #### T YS #### [address] [address] Horticulture Supervisor: Kan Craig MD CO2 [Moles/Vol] 21 mmol/L Normal 20-31 [facility] Comment on above: Performed By: #### T YS #### [address] [address] Horticulture Supervisor: Kan Craig MD Creatinine [Mass/Vol] 0.8 mg/dL Normal 0.7-1.2 [facility] Comment on above: Performed By: #### T YS #### [address] [address] Horticulture Supervisor: Kan Craig MD GFR/1.73 sq M.predicted among non-blacks MDRD (S/P/Bld) [Vol rate/Area] mL/min/{1.73_m2} Normal >60 [facility] Comment on above: Result Comment: These [...] secretion. Performed By: #### T YS #### [address] [address] Horticulture Supervisor: Kan Craig MD Glucose [Mass/Vol] 146 mg/dL High 70-99 [facility] Comment on above: Performed By: #### T YS #### [facility] [place] [address] Horticulture Supervisor: Kan Craig MD Potassium [Moles/Vol] 4.4 mmol/L Normal 3.7-5.3 [facility] Comment on above: Performed By: #### T YS #### [facility] [address] [place] [address] Horticulture Supervisor: Kan Craig MD Sodium [Moles/Vol] 137 mmol/L Normal 135-144 [facility] Comment on above: Performed By: #### T YS #### [facility] [address] [place] [address] Horticulture Supervisor: Kan Craig MD Urea nitrogen [Mass/Vol] 14 mg/dL Normal 8-23 [facility] Comment on above: Performed By: #### T YS #### [facility] [address] [place] [address] Horticulture Supervisor: Kan Craig MD Basic Metabolic Panel w/ Ref analisa to MGon 07-29-2023 Anion gap [Moles/Vol] 11 mmol/L 9 - 17 mmol/L [facility] [employer] Calcium [Mass/Vol] 8.5 mg/dL Low 8.6 - 10. 4 mg/dL [facility] [employer] Chloride [Moles/Vol] 105 mmol/L 98 - 10 7 mmol/L [facility] [employer] CO2 [Moles/Vol] 21 mmol/L 20 - 31 mmol/L [facility] Creatinine [Mass/Vol] 0.8 mg/dL 0.7 - 1.2 mg/dL [facility] [employer] GFR/1.73 sq M.predicted MDRD (S/P/Bld) [Vol rate/Area] - PINF [facility] Comment on above: These results are not [...] 146 mg/dL High 70 - 99 mg/dL [facility] Interpretation and review of laboratory results Abnormal [facility] Potassium [Moles/Vol] 4.4 mmol/L 3.7 - 5.3 mmol/L [facility] Sodium [Moles/Vol] 137 mmol/L 135 - 144 mmol/L [facility] Urea nitrogen [Mass/Vol] 14 mg/dL 8 - 23 mg/dL [facility] CBC with Auto Differentialon 07-29-2023 Basophils (Bld) [#/Vol] 0.06 10*3/uL [facility] Basophils/100 WBC (Bld) 1 % 0 - 2 % [facility] Eosinophils (Bld) [#/Vol] [facility] Eosinophils/100 WBC (Bld) 0 % Low 1 - 4 % [facility] Erythrocyte distribution width (RBC) [Ratio] 12.2 % 11.8 - 14.4 % [facility] Hematocrit (Bld) [Volume fraction] 46.7 % 40.7 - 50.3 % [facility] Hemoglobin (Bld) [Mass/Vol] 15.5 g/dL 13.0 - 17.0 g/dL [facility] Immature granulocytes (Bld) [#/Vol] 0.05 10*3/uL [facility] Immature granulocytes/100 WBC (Bld) 0 % 0 [facility] Interpretation and review of laboratory results Abnormal [facility] Lymphocytes/100 WBC (Bld) 16 % Low 24 - 43 % [facility] Lymphocytes/100 WBC (Bld) 1.94 % [facility] MCH (RBC) [Entitic mass] 31.4 pg 25.2 - 33.5 pg [facility] MCHC (RBC) [Mass/Vol] 33.2 g/dL 28.4 - 34.8 g/dL [facility] MCV (RBC) [Entitic vol] 94.7 fL 82.6 - 102.9 fL [facility] Monocytes/100 WBC (Bld) 10 % 3 - 12 % [facility] Monocytes/100 WBC (Bld) 1.24 % High [facility] Neutrophils/100 WBC (Bld) 73 % High 36 - 65 % [facility] Nucleated RBC/100 WBC (Bld) [Ratio] 0.0 % 0.0 per 100 WBC [facility] Platelet mean volume (Bld) [Entitic vol] 10.8 fL 8.1 - 13.5 fL [facility] Platelets (Bld) [#/Vol] 243 10*3/uL [facility] RBC (Bld) [#/Vol] 4.93 10*6/uL 4.21 - 5.7 7 m/uL [facility] Segmented neutrophils/100 WBC (Bld) 8.89 % High [facility] WBC other (Bld) [#/Vol] 12.2 High [facility] CBC with Diffon 07-29-2023 Abs. Basophil 0.06 k/uL Normal 0.00-0.20 [facility] Comment on above: Performed By: #### T YS #### [facility] [employer] [address] [place] [address] Horticulture Supervisor: Kan Craig MD Abs. Eosinophil <0.03 Normal 0.00-0.44 [facility] Comment on above: Performed By: #### T YS #### [facility] [address] [place] [address] Horticulture Supervisor: Kan Craig MD Abs.Imm.Granulocyte 0.05 k/uL Normal 0.00-0.30 [facility] Comment on above: Performed By: #### T YS #### [facility] [address] [place] [address] Horticulture Supervisor: Kan Craig MD Abs.Neutrophil (Seg) 8.89 k/uL High 1.50-8.10 [facility] Comment on above: Performed By: #### T YS #### [address] [address] Horticulture Supervisor: Kan Craig MD Basophils/100 WBC (Bld) 1 % Normal 0-2 [facility] Comment on above: Performed By: #### T YS #### [address] [address] Horticulture Supervisor: Kan Craig MD Eosinophils/100 WBC (Bld) 0 % Low 1-4 [facility] Comment on above: Performed By: #### T YS #### [address] [address] Horticulture Supervisor: Kan Craig MD Erythrocyte distribution width (RBC) [Ratio] 12.2 % Normal 11.8-14.4 [facility] Comment on above: Performed By: #### T YS #### [address] [address] Horticulture Supervisor: Kan Craig MD Hematocrit (Bld) [Volume fraction] 46.7 % Normal 40.7-50.3 [facility] Comment on above: Performed By: #### T YS #### [address] [address] Horticulture Supervisor: Kan Craig MD Hemoglobin (Bld) [Mass/Vol] 15.5 g/dL Normal 13.0-17.0 [facility] Comment on above: Performed By: #### T YS #### [address] [address] Horticulture Supervisor: Kan Craig MD Immature granulocytes/100 WBC (Bld) 0 % Normal 0 [facility] Comment on above: Performed By: #### T YS #### [address] [address] Horticulture Supervisor: Kan Craig MD Lymphocytes (Bld) [#/Vol] 1.94 10*3/uL Normal 1.10-3.70 [facility] Comment on above: Performed By: #### T YS #### [address] [address] Horticulture Supervisor: Kan Craig MD Lymphocytes/100 WBC (Bld) 16 % Low 24-43 [facility] Comment on above: Performed By: #### T YS #### [place] [address] Horticulture Supervisor: Kan Craig MD MCH (RBC) [Entitic mass] 31.4 pg Normal 25.2-33.5 [facility] Comment on above: Performed By: #### T YS #### [place] [address] Horticulture Supervisor: Kan Craig MD MCHC (RBC) [Mass/Vol] 33.2 g/dL Normal 28.4-34.8 [facility] Comment on above: Performed By: #### T YS #### [address] [address] Horticulture Supervisor: Kan Craig MD MCV (RBC) [Entitic vol] 94.7 fL Normal 82.6-102.9 [facility] Comment on above: Performed By: #### T YS #### [place] [address] Horticulture Supervisor: Kan Craig MD Monocytes (Bld) [#/Vol] 1.24 10*3/uL High 0.10-1.20 [facility] Comment on above: Performed By: #### T YS #### [address] [address] Horticulture Supervisor: Kan Craig MD Monocytes/100 WBC (Bld) 10 % Normal 3-12 [facility] Comment on above: Performed By: #### T YS #### [address] [address] Horticulture Supervisor: Kan Craig MD Neutrophil (Seg) 73 % High 36-65 [facility] Comment on above: Performed By: #### T YS #### [address] [address] Horticulture Supervisor: Kan Craig MD NRBC Automated 0.0 per 100 WBC Normal 0.0 [facility] Comment on above: Performed By: #### T YS #### [address] [address] Horticulture Supervisor: Kan Craig MD Platelet mean volume (Bld) [Entitic vol] 10.8 fL Normal 8.1-13.5 [facility] Comment on above: Performed By: #### T YS #### [address] [address] Horticulture Supervisor: Kan Craig MD Platelets (Bld) [#/Vol] 243 10*3/uL Normal 138-453 [facility] Comment on above: Performed By: #### T YS #### [address] [address] Horticulture Supervisor: Kan Craig MD RBC (Bld) [#/Vol] 4.93 10*6/uL Normal 4.21-5.77 [facility] Comment on above: Performed By: #### T YS #### [address] [address] Horticulture Supervisor: Kan Craig MD WBC (Bld) [#/Vol] 12.2 10*3/uL High 3.5-11.3 [facility] Comment on above: Performed By: #### T YS #### [address] [address] Horticulture Supervisor: Kan Craig MD Glucose,Whole Bloodon 2023 Glucose [Mass/Vol] 151 mg/dL High 75-110 [facility] Glucose [Mass/Vol] 174 mg/dL High 75-110 [facility] Glucose [Mass/Vol] 166 mg/dL High 75-110 [facility] Glucose [Mass/Vol] 139 mg/dL High 75-110 [facility] No Panel Informationon 07-29 Radiology Study observation (narrative) [facility] 2U POC Glucose Fingerstickon Glucose [Mass/Vol] 151 mg/dL High 75 - 110 mg/dL [facility] Interpretation and review of laboratory results Abnormal [facility] 2U [facility] Glucose [Mass/Vol] 174 mg/dL High 75 - 110 mg/dL [facility] Interpretation and review of laboratory results Abnormal [facility] Glucose [Mass/Vol] 166 mg/dL High 75 - 110 mg/dL [facility] Interpretation and review of laboratory results Abnormal [facility] Glucose [Mass/Vol] 139 mg/dL High 75 - 110 mg/dL [facility] Interpretation and review of laboratory results Abnormal [facility] Portable XR Chest AP single viewon 07-29-2023 [...] evidence of acute cardiopulmonary process. Postop findings. [facility] [employer] Portable XR Chest AP single viewOrdered By: Johan Douglas on 07-29-2023 [facility] [employer] Work Phone: XR CERVICAL SPINE (2-3 VIEWS [...] See Watt MD 07/29/23 Final result Normal [facility] XR CHEST PORTABLEon 07-29-19 XR CHEST PORTABLE [...] Johan Douglas MD 07/29/23 Final result Normal [facility] XR Cervical spine 2 or 3 Vie wson 07-29-2023 Findings consistent with cervicothoracic spinal fusion and postoperative changes as detailed above. Underlying degenerative changes in the cervical spine. [facility] EXAMINATION: 3 XRAY VIEWS OF THE [...] C6-C7. Skin nina along the posterior midline. [facility] See Watt MD - 07/29/2023 EXAMINATION: [...] changes in the cervical spine. [facility] XR Cervical spine 2 or 3 Vie wsOrdered By: See Watt on 07-29-2023 [facility] Work Phone: Calcium, Ionicon 07-28-2023 Calcium [Moles/Vol] 1.30 mmol/L Normal 1.13-1.33 [facility] Comment on above: Performed By: #### O HP, IOCAL ####[facility] [address] [place], [place] [id number] Lab Director: Kan Craig MD Calcium [Moles/Vol] 1.43 mmol/L High 1.13-1.33 [facility] Comment on above: Performed By: #### O HP, IOCAL, LACTIC ####[facility] [address] [place], [place] [phone] lab Director: Kan Craig MD Calcium [Moles/Vol] 1.03 mmol/L Low 1.13-1.33 [facility] Comment on above: Performed By: #### I OCAL, OHP ####[facility] [address] [place], [place] [phone] lab Director: Kan Craig MD Calcium, Ionizedon Calcium.ionized (Bld) [Moles/Vol] 1.30 mmol/L 1.13 - 1.33 mmol/L [facility] Calcium.ionized (Bld) [Moles/Vol] 1.43 mmol/L High 1.13 - 1.33 mmol/L [facility] Calcium.ionized (Bld) [Moles/Vol] 1.03 mmol/L Low 1.13 - 1.33 mmol/L [facility] FLUORO FOR SURGICAL PROCEDUR ESon 07-28-2023 FLUORO FOR SURGICAL PROCEDURES Radiology exam is complete. No Radiologist dictation. Please follow up with ordering provider. Final result Normal [facility] FLUORO FOR SURGICAL PROCEDURES Radiology exam is complete. No Radiologist dictation. Please follow up with ordering provider. Final result Normal [facility] Glucose (POC)on 07-28-2023 Glucose [Mass/Vol] 156 mg/dL High 74-100 [facility] Glucose,Whole Bloodon 2023 Glucose [Mass/Vol] 209 mg/dL High 75-110 [facility] Glucose [Mass/Vol] 200 mg/dL High 75-110 [facility] Glucose [Mass/Vol] 195 mg/dL High 75-110 [facility] Guidance-- during surgeryon 07-28-2023 Radiology exam is complete. No Radiologist dictation. Please follow up with ordering provider. [facility] Radiology exam is complete. No Radiologist dictation. Please follow up with ordering provider. [facility] Lactic Acidon 07-28-2023 Lactic Acid, Whole Blood 1.7 mmol/L 0.7 - 2.1 mmol/L [facility] Lactic Acid,Whole Bl 1.7 mmol/L Normal 0.7-2.1 [facility] Comment on above: Performed By: #### O HP, IOCAL, LACTIC ####[facility] [address] [place] [address] [facility] Director: Kan Craig MD No Panel Informationon 07-28 [facility] Interpretation and review of laboratory results Abnormal [facility] Interpretation and review of laboratory results Abnormal [facility] OPEN HEART PANELon 4 Arterial patency Wrist artery --pre arterial puncture INFORMATION NOT PROVIDED [facility] Carboxyhemoglobin (Bld) [Mass fraction] 1.3 % 0 - 5 % [facility] [employer] Comment on above: Reference Range: Non-Smokers 0-2% Average Smoker 2-4% Heavy Smoker <10% Chloride [Moles/Vol] 108 mmol/L 98 - 11 0 mmol/L [facility] [employer] Glucose [Mass/Vol] 206 mg/dL High 75 - 110 mg/dL [facility] [employer] HCO3 (Bld) [Moles/Vol] 22.1 mmol/L 22 - 27 mmol/L [facility] [employer] Hematocrit (Bld) [Volume fraction] 47.0 % 40.7 - 50.3 % [facility] Hemoglobin (Bld) [Mass/Vol] 15.4 g/dL [facility] Interpretation and review of laboratory results Abnormal [facility] Negative Base Excess, Art 2.7 mmol/L High 0.0 - 2.0 mmol/L [facility] Oxygen saturation in Blood 98.7 % 94 - 100 % [facility] Oxygen/Inspired gas Respiratory system --on ventilator 70 [facility] pCO2, Art, Temp Adj 36.5 32 - 45 [facility] pCO2, Arterial 40.2 [facility] pH, Art, Temp Adj 7.388 7.350 - 7.450 [facility] pH, Arterial 7.359 7.350 - 7.450 [facility] pO2, Art, Temp Adj 295.0 High [facility] pO2, Arterial 305.0 High [facility] Potassium [Moles/Vol] 4.0 mmol/L 3.6 - 5.0 mmol/L [facility] Sodium [Moles/Vol] 137 mmol/L 136 - 145 mmol/L [facility] Arterial patency Wrist artery --pre arterial puncture INFORMATION NOT PROVIDED [facility] Carboxyhemoglobin (Bld) [Mass fraction] 0.2 % 0 - 5 % [facility] Comment on above: Reference Range: Non-Smokers 0-2% Average Smoker 2-4% Heavy Smoker <10% Negative Base Excess, Art 3.3 mmol/L High 0.0 - 2.0 mmol/L [facility] Oxygen/Inspired gas Respiratory system --on ventilator 70% [facility] pCO2, Arterial 44.0 [facility] pH, Arterial 7.326 Low 7.350 - 7.450 [facility] pO2, Arterial 301.0 High [facility] Arterial patency Wrist artery --pre arterial puncture INFORMATION NOT PROVIDED [facility] Carboxyhemoglobin (Bld) [Mass fraction] 1.1 % 0 - 5 % [facility] Comment on above: Reference Range: Non-Smokers 0-2% Average Smoker 2-4% Heavy Smoker <10% Chloride [Moles/Vol] 116 mmol/L High 98 - 11 0 mmol/L [facility] Glucose [Mass/Vol] 150 mg/dL High 75 - 110 mg/dL [facility] HCO3 (Bld) [Moles/Vol] 19.7 mmol/L Low 22 - 27 mmol/L [facility] Hematocrit (Bld) [Volume fraction] 44.5 % 40.7 - 50.3 % [facility] Hemoglobin (Bld) [Mass/Vol] 14.5 g/dL [facility] Negative Base Excess, Art 5.1 mmol/L High 0.0 - 2.0 mmol/L [facility] Oxygen saturation in Blood 98.6 % 94 - 100 % [facility] Oxygen/Inspired gas Respiratory system --on ventilator 70 [facility] pCO2, Arterial 37.6 [facility] pH, Arterial 7.338 Low 7.350 - 7.450 [facility] pO2, Arterial 281.0 High [facility] Potassium [Moles/Vol] 2.9 mmol/L Critically low 3.6 - 5.0 mmol/L [facility] Sodium [Moles/Vol] 140 mmol/L 136 - 145 mmol/L [facility] Open Heart Panelon 4 Gabriel Test INFORMATION NOT PROVIDED Normal [facility] Comment on above: Performed By: #### O HP, IOCAL ####[facility] [place] [address] [place], [place] [phone] lab Director: Kan Craig MD Performed By: #### O HP, IOCAL, LACTIC ####[facility] [address] [place], [place] [id number] Lab Director: Kan Craig MD Body Temp. 35.0 Normal [facility] Comment on above: Performed By: #### O HP, IOCAL ####[facility] [place] [address] [place] [address] Lab Director: Kan Craig MD Carboxy Hgb 1.3 % Normal 0-5 [facility] Comment on above: Result Comment: Reference Range: Non-Smokers 0-2% Average Smoker 2-4% Heavy Smoker <10% Performed By: #### O HP, IOCAL ####[facility] [address] [place], [place] [phone] Director: Kan Craig MD Chloride [Moles/Vol] 108 mmol/L Normal 98-110 [facility] Comment on above: Performed By: #### O HP, IOCAL ####[facility] [address] [place] [address] [phone] Director: Kan Craig MD FIO2 70 Normal [facility] Comment on above: Performed By: #### O HP, IOCAL ####[facility] [address] [place] [address] [phone] Director: Kan Craig MD Glucose [Mass/Vol] 206 mg/dL High 75-110 [facility] Comment on above: Performed By: #### O HP, IOCAL ####[facility] [address] [place] [address] [phone] Director: Kan Craig MD HCO3 (Bld) [Moles/Vol] 22.1 mmol/L Normal 22-[address] [facility] Comment on above: Performed By: #### O HP, IOCAL ####[facility] [address] [place] [address] Lab Director: Kan Craig MD Hematocrit (Bld) [Volume fraction] 47.0 % Normal 40.7-50.3 [facility] Comment on above: Performed By: #### O HP, IOCAL ####[facility] [address] [place], [place] [phone] Director: Kan Craig MD Hemoglobin (Bld) [Mass/Vol] 15.4 g/dL Normal 13.0-17.0 [facility] Comment on above: Performed By: #### O HP, IOCAL ####[facility] [address] [place], [place] [phone] Director: Kan Craig MD Negative Base Excess 2.7 mmol/L High 0.0-2.0 [facility] Comment on above: Performed By: #### O HP, IOCAL ####[facility] [address] [place] [address] [phone] Director: Kan Craig MD Oxygen (Bld) [Partial pressure] 305.0 mm[Hg] High 75-95 [facility] Comment on above: Performed By: #### O HP, IOCAL ####[facility] [address] [place] [address] [phone] Director: Kan Craig MD Oxygen saturation in Blood 98.7 % Normal 94-100 [facility] Comment on above: Performed By: #### O HP, IOCAL ####[facility] [address] [place] [address] [phone] Director: Kan Craig MD pCO2 40.2 mmHg Normal 32-45 [facility] Comment on above: Performed By: #### O HP, IOCAL ####[facility] [address] [place] [address] [phone] Director: Kan Craig MD pCO2 Adj'd for Temp 36.5 Normal 32-45 [facility] Comment on above: Performed By: #### O HP, IOCAL ####[facility] [address] [place] [address] [phone] Director: Kan Craig MD pH (Bld) 7.359 [pH] Normal 7.350-7.450 [facility] Comment on above: Performed By: #### O HP, IOCAL ####[facility] [address] [place] [address] [phone] Director: Kan Craig MD pH Adjst'd for Temp. 7.388 Normal 7.350-7.450 [facility] Comment on above: Performed By: #### O HP, IOCAL ####[facility] [address] [place] [address] Lab Director: Kan Craig MD pO2 Adjst'd for Temp 295.0 mmHg High 75-95 [facility] Comment on above: Performed By: #### O HP, IOCAL ####[facility] [address] [place] [address] Lab Director: Kan Craig MD Potassium [Moles/Vol] 4.0 mmol/L Normal 3.6-5.0 [facility] Comment on above: Performed By: #### O HP, IOCAL ####[facility] [id number] [place] [address] Lab Director: Kan Craig MD Sodium [Moles/Vol] 137 mmol/L Normal 136-145 [facility] Comment on above: Performed By: #### O HP, IOCAL ####[facility] [id number] [place] [address] Lab Director: Kan Craig MD Chloride [Moles/Vol] 111 mmol/L High 98-110 [facility] Comment on above: Performed By: #### O HP, IOCAL, LACTIC ####[facility] [id number] [place] [address] Lab Director: Kan Craig MD Glucose [Mass/Vol] 165 mg/dL High 75-110 [facility] Comment on above: Performed By: #### O HP, IOCAL, LACTIC ####[facility] [address] [place], [place] [id number])[phone] Director: Kan Craig MD HCO3 (Bld) [Moles/Vol] 22.3 mmol/L Normal 22-27 B ON [facility] Comment on above: Performed By: #### O HP, IOCAL, LACTIC ####[facility] [address] [place] [address] Lab Director: Kan Craig MD Hematocrit (Bld) [Volume fraction] 47.3 % Normal 40.7-50.3 [facility] Comment on above: Performed By: #### O HP, IOCAL, LACTIC ####[facility] [address] [place], [place] [phone])[phone] Director: Kan Craig MD Hemoglobin (Bld) [Mass/Vol] 15.4 g/dL Normal 13.0-17.0 [facility] Comment on above: Performed By: #### O HP, IOCAL, LACTIC ####[facility] [address] [place], [place] [phone] Director: Kan Craig MD Oxygen saturation in Blood 98.3 % Normal 94-100 [facility] Comment on above: Performed By: #### O HP, IOCAL, LACTIC ####[facility] [address] [place], [place] [phone])[phone] Director: Kan Craig MD Potassium [Moles/Vol] 3.6 mmol/L Normal 3.6-5.0 [facility] Comment on above: Performed By: #### O HP, IOCAL, LACTIC ####[facility] [address] [place], [place] [phone])[phone] Director: Kan Craig MD Sodium [Moles/Vol] 141 mmol/L Normal 136-145 [facility] Comment on above: Performed By: #### O HP, IOCAL, LACTIC ####[facility] [address] [place], [place] [phone] Director: Kan Craig MD Carboxy Hgb 0.2 % Normal 0-5 [facility] Comment on above: Result Comment: Reference Range: Non-Smokers 0-2% Average Smoker 2-4% Heavy Smoker <10% Performed By: #### O HP, IOCAL, LACTIC ####[facility] [address] [place], [place] [phone] Director: Kan Craig MD FIO2 70% Normal [facility] Comment on above: Performed By: #### O HP, IOCAL, LACTIC ####[facility] [address] [place] [address] Lab Director: Kan Craig MD Negative Base Excess 3.3 mmol/L High 0.0-2.0 [facility] Comment on above: Performed By: #### O HP, IOCAL, LACTIC ####[facility] [address] [place] [address] Lab Director: Kan Craig MD Oxygen (Bld) [Partial pressure] 301.0 mm[Hg] High 75-95 [facility] Comment on above: Performed By: #### O HP, IOCAL, LACTIC ####[facility] [address] [place] [address] Lab Director: Kan Craig MD pCO2 44.0 mmHg Normal 32-45 [facility] Comment on above: Performed By: #### O HP, IOCAL, LACTIC ####[facility] [address] [place] [address] [phone] Director: Kan Craig MD pH (Bld) 7.326 [pH] Low 7.350-7.450 [facility] Comment on above: Performed By: #### O HP, IOCAL, LACTIC ####[facility] [address] [place], [place] [id number])[phone] Director: Kan Craig MD Gabriel Test INFORMATION NOT PROVIDED Normal [facility] Comment on above: Performed By: #### I OCAL, OHP #### [facility] [address] [place] [address] Horticulture Supervisor: Kan Craig MD Body Temp. 37.0 Normal [facility] Comment on above: Performed By: #### O HP, IOCAL, LACTIC ####[facility] [address] [place] [address] Lab Director: Kan Craig MD Performed By: #### I OCAL, OHP #### [facility] [address] [place] [address] Horticulture Supervisor: Kan Craig MD Carboxy Hgb 1.1 % Normal 0-5 [facility] Comment on above: Result Comment: Reference Range: Non-Smokers 0-2% Average Smoker 2-4% Heavy Smoker <10% Performed By: #### I OCAL, OHP #### [facility] [address] [place] [address] Horticulture Supervisor: Kan Craig MD Chloride [Moles/Vol] 116 mmol/L High 98-110 [facility] Comment on above: Performed By: #### I OCAL, OHP #### [facility] [address] [place] [address] Horticulture Supervisor: Kan Craig MD FIO2 70 Normal [facility] Comment on above: Performed By: #### I OCAL, OHP #### [facility] [address] [place] [address] Horticulture Supervisor: Kan Craig MD Glucose [Mass/Vol] 150 mg/dL High 75-110 [facility] Comment on above: Performed By: #### I OCAL, OHP #### [facility] [address] [place] [address] Horticulture Supervisor: Kan Craig MD HCO3 (Bld) [Moles/Vol] 19.7 mmol/L Low 22-[address] [facility] Comment on above: Performed By: #### I OCAL, OHP #### [facility] [address] [place] [address] Horticulture Supervisor: Kan Craig MD Hematocrit (Bld) [Volume fraction] 44.5 % Normal 40.7-50.3 [facility] Comment on above: Performed By: #### I OCAL, OHP #### [facility] [address] [place] [address] Horticulture Supervisor: Kan Craig MD Hemoglobin (Bld) [Mass/Vol] 14.5 g/dL Normal 13.0-17.0 [facility] Comment on above: Performed By: #### I OCAL, OHP #### [facility] [address] [place] [address] Horticulture Supervisor: Kan Craig MD Negative Base Excess 5.1 mmol/L High 0.0-2.0 [facility] Comment on above: Performed By: #### I OCAL, OHP #### [facility] [address] [place] [address] Horticulture Supervisor: Kan Craig MD Oxygen (Bld) [Partial pressure] 281.0 mm[Hg] High 75-95 [facility] Comment on above: Performed By: #### I OCAL, OHP #### [facility] [address] [place] [address] Horticulture Supervisor: Kan Craig MD Oxygen saturation in Blood 98.6 % Normal 94-100 [facility] Comment on above: Performed By: #### I OCAL, OHP #### [facility] [address] [place] [address] Horticulture Supervisor: Kan Craig MD pCO2 37.6 mmHg Normal 32-45 [facility] Comment on above: Performed By: #### I OCAL, OHP #### [facility] [address] [place] [address] Horticulture Supervisor: Kan Craig MD pH (Bld) 7.338 [pH] Low 7.350-7.450 [facility] Comment on above: Performed By: #### I OCAL, OHP #### [facility] [address] [place] [address] Horticulture Supervisor: Kan Craig MD Potassium [Moles/Vol] 2.9 mmol/L Critically low 3.6-5.0 [facility] Comment on above: Performed By: #### I OCAL, OHP #### [facility] [address] [place], [place] 0753208 Horticulture Supervisor: Kan Craig MD Sodium [Moles/Vol] 140 mmol/L Normal 136-145 [facility] Comment on above: Performed By: #### I OCAL, OHP #### [facility] [address] [place], [place] [phone] Horticulture Supervisor: Kan Craig MD POC Glucose Fingerstickon Glucose [Mass/Vol] 209 mg/dL High 75 - 110 mg/dL [facility] Interpretation and review of laboratory results Abnormal [facility] Glucose [Mass/Vol] 200 mg/dL High 75 - 110 mg/dL [facility] Interpretation and review of laboratory results Abnormal [facility] Glucose [Mass/Vol] 195 mg/dL High 75 - 110 mg/dL [facility] Interpretation and review of laboratory results Abnormal [facility] POCT Glucoseon 07-28-2023 Glucose [Mass/Vol] 156 mg/dL High 74 - 100 mg/dL [facility] Interpretation and review of laboratory results Abnormal [facility] POTASSIUM (POC)on 07-28-2023 Potassium [Moles/Vol] 3.9 mmol/L 3.5 - 4.5 mmol/L [facility] Potassium (POC)on 07-28-2023 Potassium [Moles/Vol] 3.9 mmol/L Normal 3.5-4.[address] [facility] [address] CHEST WO CONTRASTon 07-27 CT [...] HISTORY: Stenosis of cervical spine with myelopathy ([facility]) TECHNOLOGIST PROVIDED HISTORY: please include SAGITTAL up [...] Noel IV, MD 07/27/23 Final result Normal [facility] APTTon 07-10-2023 aPTT Coag (Bld) [Time] 28.5 s Normal 23.0-36.5 [facility] Comment on above: Result Comment: IV Heparin Therapy Range: 66.0-92.0 sec Performed By: #### B MP, PT, PTT, CDP ####[address] [place] [address] lab Director: Kan Craig MD Basic Metabolic Profon 07-10 Anion gap [Moles/Vol] 13 mmol/L Normal 9-16 [facility] Comment on above: Performed By: #### B MP, PT, PTT, CDP ####[facility] [address] [place] [address])[phone] Director: Kan Craig MD Calcium [Mass/Vol] 9.4 mg/dL Normal 8.6-10.4 [facility] Comment on above: Performed By: #### B MP, PT, PTT, CDP ####[facility] [address] [place] [address])[phone] Director: Kan Craig MD Chloride [Moles/Vol] 102 mmol/L Normal 98-107 [facility] Comment on above: Performed By: #### B MP, PT, PTT, CDP ####[facility] [address] [place] [address])[phone] Director: Kan Craig MD CO2 [Moles/Vol] 24 mmol/L Normal 20-31 [facility] Comment on above: Performed By: #### B MP, PT, PTT, CDP ####[facility] [address] [place] [address])[phone] Director: Kan Craig MD Creatinine [Mass/Vol] 1.0 mg/dL Normal 0.70-1.20 [facility] Comment on above: Performed By: #### B MP, PT, PTT, CDP ####[facility] [address] [place] [address])[phone] Director: Kan Craig MD GFR/1.73 sq M.predicted among non-blacks MDRD (S/P/Bld) [Vol rate/Area] mL/min/{1.73_m2} Normal >60 [facility] Comment on above: Result Comment: These [...] By: #### B MP, PT, PTT, CDP ####[facility] [address] [place] [address])[phone] Director: Kan Craig MD Glucose [Mass/Vol] 114 mg/dL High 74-99 [facility] Comment on above: Performed By: #### B MP, PT, PTT, CDP ####[facility] [address] [place] [address])[phone] Director: Kan Craig MD Potassium [Moles/Vol] 4.2 mmol/L Normal 3.7-5.3 [facility] Comment on above: Performed By: #### B MP, PT, PTT, CDP ####[address] [address])[phone] Director: Kan Craig MD Sodium [Moles/Vol] 139 mmol/L Normal 136-145 [facility] Comment on above: Performed By: #### B MP, PT, PTT, CDP ####[facility] [address] [place] [address])[phone] Director: Kan Craig MD Urea nitrogen [Mass/Vol] 21 mg/dL Normal 8-23 [facility] Comment on above: Performed By: #### B MP, PT, PTT, CDP ####[facility] [address] [place] [address])[phone] Director: Kan Craig MD CBC with Diffon 07-10-2023 Abs. Basophil 0.11 k/uL Normal 0.00-0.20 [facility] Comment on above: Performed By: #### B MP, PT, PTT, CDP ####[address] [address])[phone] Director: Kan Craig MD Abs.Imm.Granulocyte 0.05 k/uL Normal 0.00-0.30 [facility] Comment on above: Performed By: #### B MP, PT, PTT, CDP ####[address] [address])[phone] Director: Kan Craig MD Abs.Neutrophil (Seg) 3.72 k/uL Normal 1.50-8.10 [facility] Comment on above: Performed By: #### B MP, PT, PTT, CDP ####[place], [place] [address])[phone] Director: Kan Craig MD Basophils/100 WBC (Bld) 2 % Normal 0-2 [facility] Comment on above: Performed By: #### B MP, PT, PTT, CDP ####[place], [place] [address])[phone] Director: Kan Craig MD Eosinophils (Bld) [#/Vol] 0.16 10*3/uL Normal 0.00-0.44 [facility] Comment on above: Performed By: #### B MP, PT, PTT, CDP ####[place], [place] [address])[phone] Director: Kan Craig MD Eosinophils/100 WBC (Bld) 3 % Normal 1-4 [facility] Comment on above: Performed By: #### B MP, PT, PTT, CDP ####[facility] [address] [place], [place] [address])[phone] Director: Kan Craig MD Erythrocyte distribution width (RBC) [Ratio] 12.1 % Normal 11.8-14.4 [facility] Comment on above: Performed By: #### B MP, PT, PTT, CDP ####[address] [address])[phone] Director: Kan Craig MD Hematocrit (Bld) [Volume fraction] 49.3 % Normal 40.7-50.3 [facility] Comment on above: Performed By: #### B MP, PT, PTT, CDP ####[address] [address] Lab Director: Kan Craig MD Hemoglobin (Bld) [Mass/Vol] 16.3 g/dL Normal 13.0-17.0 [facility] Comment on above: Performed By: #### B MP, PT, PTT, CDP ####[facility] [address] [place] [address] [id number])[phone] Director: Kan Craig MD Immature granulocytes/100 WBC (Bld) 1 % High 0 [facility] Comment on above: Performed By: #### B MP, PT, PTT, CDP ####[address] [address])[phone] Director: Kan Craig MD Lymphocytes (Bld) [#/Vol] 1.83 10*3/uL Normal 1.10-3.70 [facility] Comment on above: Performed By: #### B MP, PT, PTT, CDP ####[facility] [address] [place] [address] [id number])[phone] Director: Kan Craig MD Lymphocytes/100 WBC (Bld) 29 % Normal 24-43 [facility] Comment on above: Performed By: #### B MP, PT, PTT, CDP ####[facility] [address] [place] [address] [id number])[phone] Director: Kan Craig MD MCH (RBC) [Entitic mass] 31.7 pg Normal 25.2-33.5 [facility] Comment on above: Performed By: #### B MP, PT, PTT, CDP ####[facility] [address] [place], [place] [phone])[phone] Director: Kan Craig MD MCHC (RBC) [Mass/Vol] 33.1 g/dL Normal 28.4-34.8 [facility] Comment on above: Performed By: #### B MP, PT, PTT, CDP ####[address] [phone] Director: Kan Craig MD MCV (RBC) [Entitic vol] 95.7 fL Normal 82.6-102.9 [facility] Comment on above: Performed By: #### B MP, PT, PTT, CDP ####[address] [address])[phone] Director: Kan Craig MD Monocytes (Bld) [#/Vol] 0.41 10*3/uL Normal 0.10-1.20 [facility] Comment on above: Performed By: #### B MP, PT, PTT, CDP ####[place], [place] [address])[phone] Director: Kan Craig MD Monocytes/100 WBC (Bld) 7 % Normal 3-12 [facility] Comment on above: Performed By: #### B MP, PT, PTT, CDP ####[place], [place] [address])[phone] Director: Kan Craig MD Neutrophil (Seg) 58 % Normal 36-65 [facility] Comment on above: Performed By: #### B MP, PT, PTT, CDP ####[place], [place] [address])[phone] Director: Kan Craig MD NRBC Automated 0.0 per 100 WBC Normal 0.0 [facility] Comment on above: Performed By: #### B MP, PT, PTT, CDP ####[address] [address])[phone] Director: Kan Craig MD Platelet mean volume (Bld) [Entitic vol] 10.5 fL Normal 8.1-13.5 [facility] Comment on above: Performed By: #### B MP, PT, PTT, CDP ####[facility] [address] [place], [place] [id number])[phone] Director: Kan Craig MD Platelets (Bld) [#/Vol] 225 10*3/uL Normal 138-453 [facility] Comment on above: Performed By: #### B MP, PT, PTT, CDP ####[facility] [address] [place], [place] [id number])[phone] Director: Kan Craig MD RBC (Bld) [#/Vol] 5.15 10*6/uL Normal 4.21-5.77 [facility] Comment on above: Performed By: #### B MP, PT, PTT, CDP ####[address] [address])[phone] Director: Kan Craig MD WBC (Bld) [#/Vol] 6.3 10*3/uL Normal 3.5-11.3 [facility] Comment on above: Performed By: #### B MP, PT, PTT, CDP ####[facility] [address] [place] [address] [id number])[phone] Director: Kan Craig MD PTon 07-10-2023 INR Coag (PPP) [Relative time] 1.0 {INR} Normal [facility] Comment on above: Result Comment: Therapeutic Range: Moderate Anticoagulant Intensity: INR = 2.0-3.0 High Anticoagulant Intensity: INR = 2.5-3.5 Performed By: #### B MP, PT, PTT, CDP ####[facility] [address] [place] [address])[phone] Director: Kan Craig MD PT Coag (PPP) [Time] 12.7 s Normal 11.7-14.9 [facility] Comment on above: Performed By: #### B MP, PT, PTT, CDP ####[address] [address] Lab Director: Kan Craig MD Type + Screenon 9 Type + Screen Sample Expiration 07/31/2023,2359 Arm Band Number BE [id number] ABO/Rh(D) B POSITIVE Antibody Screen NEGATIVE Normal [facility] Comment on above: Performed By: #### T YS #### [address] [address] Horticulture Supervisor: Kan Craig MD Performed By: #### T YS ####[address] [address] Lab Director: Kan Craig MD Urinalysis, Routineon 2023 Bilirubin, SemiQt,Ur Negative Normal NEG [facility] Comment on above: Performed By: #### U A #### [address] [address] Horticulture Supervisor: Kan Craig MD Blood, Urine Negative Normal NEG [facility] Comment on above: Performed By: #### U A #### [address] [address] Horticulture Supervisor: Kan Craig MD Clarity (U) Clear Normal CLEAR [facility] Comment on above: Performed By: #### U A #### [address] [address] Horticulture Supervisor: Kan Craig MD Color (U) Yellow Normal YEL [facility] Comment on above: Performed By: #### U A #### [address] [address] Horticulture Supervisor: Kan Craig MD Comment Microscopic exam not performed based on chemical results unless requested in Normal [facility] Comment on above: Result Comment: orig inal order. Performed By: #### U A #### [address] [address] Horticulture Supervisor: Kan Craig MD Glucose Ql (U) 3+ mg/dL Abnormal NEG [facility] Comment on above: Performed By: #### U A #### [address] [address] Horticulture Supervisor: Kan Craig MD Ketones Ql (U) Negative Normal NEG [facility] Comment on above: Performed By: #### U A #### [address] [address] Horticulture Supervisor: Kan Craig MD Leukocyte esterase Test strip Ql (U) Negative Normal NEG [facility] Comment on above: Performed By: #### U A #### [address] [address] Horticulture Supervisor: Kan Craig MD Nitrite,Ur Negative Normal NEG [facility] Comment on above: Performed By: #### U A #### [address] [address] Horticulture Supervisor: Kan Craig MD PH,Ur 5.0 Normal 5.0-8.0 [facility] Comment on above: Performed By: #### U A #### [address] [address] Horticulture Supervisor: Kan Craig MD Protein Ql (U) Negative Normal NEG [facility] Comment on above: Performed By: #### U A #### [address] [address] Horticulture Supervisor: Kan Craig MD Spec. Puposky,Ur 1.029 Normal 1.005-1.030 [facility] Comment on above: Performed By: #### U A #### [address] [address] Horticulture Supervisor: Kan Craig MD Urobilinogen,Ur Normal Normal 0.0-1.0 [facility] Comment on above: Performed By: #### U A #### [facility] [address] [place] [address] Horticulture Supervisor: Kan Craig MD CT CERVICAL SPINE WO [...] Johan Bowers MD 06/07/23 Final result Normal [facility] Basic Metabolic Profon 05-19 Anion gap [Moles/Vol] 13 mmol/L Normal 9-17 [facility] Comment on above: Performed By: #### C BC, BMP #### [facility] [address] [place] [address] Horticulture Supervisor: Julio Martínez MD #### GLYHGB #### [address] [address] Horticulture Supervisor: Kan Craig MD BUN/CRE Ratio 27 High 9-20 [facility] Comment on above: Performed By: #### C BC, BMP #### [facility] [address] [place] [address] Horticulture Supervisor: Julio Martínez MD #### GLYHGB #### [address] [address] Horticulture Supervisor: Kan Craig MD Calcium [Mass/Vol] 9.7 mg/dL Normal 8.6-10.4 [facility] Comment on above: Performed By: #### Nancy ROBLES, BMP #### [facility] [address] [place] [address] Horticulture Supervisor: Julio Martínez MD #### GLYHGB #### [address] [address] Horticulture Supervisor: Kan Craig MD Chloride [Moles/Vol] 103 mmol/L Normal 98-107 [facility] Comment on above: Performed By: #### C TRAVIS, BMP #### [facility] [address] [place] [address] Horticulture Supervisor: Julio Martínez MD #### GLYHGB #### [address] [address] Horticulture Supervisor: Kan Craig MD CO2 [Moles/Vol] 24 mmol/L Normal 20-31 [facility] Comment on above: Performed By: #### C TRAVIS, BMP #### [facility] [address] [place] [address], [place] [address] Horticulture Supervisor: Julio Martínez MD #### GLYHGB #### [address] [address] Horticulture Supervisor: Kan Craig MD Creatinine [Mass/Vol] 1.0 mg/dL Normal 0.7-1.2 [facility] Comment on above: Performed By: #### C TRAVIS, BMP #### [facility] [address] [place] [address] Horticulture Supervisor: Julio Martínez MD #### GLYHGB #### [address] [id number] Horticulture Supervisor: Kan Craig MD GFR/1.73 sq M.predicted among non-blacks MDRD (S/P/Bld) [Vol rate/Area] mL/min/{1.73_m2} Normal >60 [facility] Comment on above: Result Comment: These results [...] Performed By: #### C TRAVIS, BMP #### [facility] [address] [place] [address] Horticulture Supervisor: Julio Martínez MD #### GLYHGB #### [address] [address] Horticulture Supervisor: Kan Craig MD Glucose [Mass/Vol] 169 mg/dL High 70-99 [facility] Comment on above: Performed By: #### C TRAVIS, BMP #### [facility] [address] [place], [place] 7650023 Horticulture Supervisor: Julio Martínez MD #### GLYHGB #### [address] [phone] Horticulture Supervisor: Kan Craig MD Potassium [Moles/Vol] 4.1 mmol/L Normal 3.7-5.3 [facility] Comment on above: Performed By: #### C BC, BMP #### [facility] [address] [place], [place] [id number] Horticulture Supervisor: Julio Martínez MD #### GLYHGB #### [address] [phone] Horticulture Supervisor: Kan Craig MD Sodium [Moles/Vol] 140 mmol/L Normal 135-144 [facility] Comment on above: Performed By: #### Nancy BC, BMP #### [facility] [address] [place] [address] [phone] Horticulture Supervisor: Julio Martínez MD #### GLYHGB #### [address] [phone] Horticulture Supervisor: Kan Craig MD Urea nitrogen [Mass/Vol] 27 mg/dL High 8-23 [facility] Comment on above: Performed By: #### Nancy BC, BMP #### [facility] [address] [place] [address] [id number] Horticulture Supervisor: Julio Martínez MD #### GLYHGB #### [address] [phone] Horticulture Supervisor: Kan Craig MD CBCon 05-19-2023 Erythrocyte distribution width (RBC) [Ratio] 13.6 % Normal 11.8-14.4 [facility] Comment on above: Performed By: #### C BC, BMP #### [facility] [address] [place] [address], [place] [address] Horticulture Supervisor: Julio Martínez MD #### GLYHGB #### [address] [address] Horticulture Supervisor: Kan Craig MD Hematocrit (Bld) [Volume fraction] 46.6 % Normal 40.7-50.3 [facility] Comment on above: Performed By: #### C BC, BMP #### [facility] [address] [place] [address] Horticulture Supervisor: Julio Martínez MD #### GLYHGB #### [address] [address] Horticulture Supervisor: Kan Craig MD Hemoglobin (Bld) [Mass/Vol] 15.6 g/dL Normal 13.0-17.0 [facility] Comment on above: Performed By: #### C BC, BMP #### [facility] [address] [place] [address] Horticulture Supervisor: Julio Martínez MD #### GLYHGB #### [address] [address] Horticulture Supervisor: Kan Craig MD MCH (RBC) [Entitic mass] 31.9 pg Normal 25.2-33.5 [facility] Comment on above: Performed By: #### C BC, BMP #### [facility] [place] [address] Horticulture Supervisor: Julio Martínez MD #### GLYHGB #### [address] [address] Horticulture Supervisor: Kan Craig MD MCHC (RBC) [Mass/Vol] 33.5 g/dL Normal 28.4-34.8 [facility] Comment on above: Performed By: #### C BC, BMP #### [facility] [address] [place] [address] Horticulture Supervisor: Julio Martínez MD #### GLYHGB #### [address] [address] Horticulture Supervisor: Kan Craig MD MCV (RBC) [Entitic vol] 95.3 fL Normal 82.6-102.9 [facility] Comment on above: Performed By: #### C BC, BMP #### [facility] [address] [place] [address] Horticulture Supervisor: Julio Martínez MD #### GLYHGB #### [address] [address] Horticulture Supervisor: Kan Craig MD NRBC Automated 0.0 per 100 WBC Normal 0.0 [facility] Comment on above: Performed By: #### C TRAVIS, BMP #### [facility] [address] [place] [address] Horticulture Supervisor: Julio Martínez MD #### GLYHGB #### [address] [address] Horticulture Supervisor: Kan Craig MD Platelet mean volume (Bld) [Entitic vol] 10.7 fL Normal 8.1-13.5 [facility] Comment on above: Performed By: #### C TRAVIS, BMP #### [facility] [address] [place] [address] Horticulture Supervisor: Julio Martínez MD #### GLYHGB #### [address] [address] Horticulture Supervisor: Kan Craig MD Platelets (Bld) [#/Vol] 255 10*3/uL Normal 138-453 [facility] Comment on above: Performed By: #### C BC, BMP #### [facility] [address] [place] [address] Horticulture Supervisor: Julio Martínez MD #### GLYHGB #### [address] [address] Horticulture Supervisor: Kan Craig MD RBC (Bld) [#/Vol] 4.89 10*6/uL Normal 4.21-5.77 [facility] Comment on above: Performed By: #### C BC, BMP #### [facility] [address] [place] [address] Horticulture Supervisor: Julio Martínez MD #### GLYHGB #### [address] [address] Horticulture Supervisor: Kan Craig MD WBC (Bld) [#/Vol] 6.3 10*3/uL Normal 3.5-11.3 [facility] Comment on above: Performed By: #### C BC, BMP #### [facility] [address] [place] [address] Horticulture Supervisor: Julio Martínez MD #### GLYHGB #### [address] [address] Horticulture Supervisor: Kan Craig MD Hemoglobin A1Con 05-19-2023 Glucose [Mass/Vol] 151 mg/dL Normal [facility] Comment on above: Result Comment: The ADA and AACC recommend providing the estimated average glucose result to permit better patient understanding of their HBA1c result. Performed By: #### C BC, BMP #### [facility] [address] [place] [address] Horticulture Supervisor: Julio Martínez MD #### GLYHGB #### [address] [address] Horticulture Supervisor: Kan Craig MD HbA1c (Bld) [Mass fraction] 6.9 % High 4.0-6.0 [facility] Comment on above: Performed By: #### C BC, BMP #### [facility] [address] [place], [place] [address] Horticulture Supervisor: Julio Martínez MD #### GLYHGB #### [facility] [address] [place], [place] [id number] Horticulture Supervisor: Kan Craig MD MRI CERVICAL SPINE WO [...] Tonja Malone MD 05/17/23 Final result Normal [facility] POINT OF CARE GLUCOSEon 10-10 Glucose [Mass/Vol] 159 mg/dL Critically high 74-106 [facility] Comment on above: Performed By: #### P OCGLUC #### [facility] [address] [place], [place] [address] Dr. Cristal Goodwin POINT OF CARE GLUCOSEon 09-10 Glucose [Mass/Vol] 182 mg/dL Critically high 74-106 [facility] Comment on above: Performed By: #### P OCGLUC #### [facility] [address] [place], [place] [address] Dr. Cristal Goodwin XR CSPINE 2_3 VIEWSon [...] by: WILL SOARES Date: 2022-09-15 10:31 Normal [facility] XR TSPINE 2 VIEWSon 09-16-19 23 [...] by: WILL SOARES Date: 2022-09-15 10:29 Normal [facility] POINT OF CARE GLUCOSEon 08-11 Glucose [Mass/Vol] 120 mg/dL Critically high 74-106 [facility] Comment on above: Performed By: #### P OCGLUC #### [facility] [address] [place] [address] Dr. Cristal Goodwin XR LSPINE MIN 4 [...] by: GUILLERMO AMADOR Date: 2022-08-10 07:23 Normal [facility] CT LUNG CANCER SCREENINGon 0 08-03-2022 [...] by: WILL SOARES Date: 2022-08-03 15:51 Normal [facility] BASIC METABOLIC PANELon 12-11 BUN/CREATININE RATIO NOT APPLICABLE Normal - [facility] Comment on above: Order Comment: FASTI NG:YES FASTING: YES Performed By: #### 4 96, 68589 #### [facility] [address], [address] [place] [address] Bladder Changer: Gelacio Alonso MD Calcium [Mass/Vol] 9.1 mg/dL Normal 8.6-10.3 [facility] Comment on above: Order Comment: FASTI NG:YES FASTING: YES Performed By: #### 4 96, 47194 #### [facility] [address], [address] [place] [address] Bladder Changer: Gelacio Alonso MD Chloride [Moles/Vol] 106 mmol/L Normal 98-110 [facility] Comment on above: Order Comment: FASTI NG:YES FASTING: YES Performed By: #### 4 96, 69609 #### [facility] [address], [address] [place] [address] Bladder Changer: Gelacio Alonso MD CO2 [Moles/Vol] 26 mmol/L Normal 20-32 [facility] Comment on above: Order Comment: FASTI NG:YES FASTING: YES Performed By: #### 4 96, 91801 #### [facility] [address], [address] [place] [address] Bladder Changer: Gelacio Alonso MD Creatinine [Mass/Vol] 0.93 mg/dL Normal 0.70-1.35 [facility] Comment on above: Order Comment: FASTI NG:YES FASTING: YES Performed By: #### 4 96, 81897 #### [facility] [address], [address] [place] [address] Bladder Changer: Gelacio Alonso MD GFR/1.73 sq M.predicted among non-blacks MDRD (S/P/Bld) [Vol rate/Area] 93 mL/min/{1.73_m2} Normal > OR = 60 [facility] Comment on above: Order Comment: FASTI NG:YES FASTING: YES Result Comment: The eGFR is based on the CKD-EPI 2020 equation. To calculate the new eGFR from a previous Creatinine or Cystatin C result, go to https://www.kidney.org/professionals/ kdoqi/gfr%5Fcalculator Performed By: #### 4 96, 37956 #### [facility] [place] [address] Bladder Changer: Gelacio Alonso MD Glucose [Mass/Vol] 136 mg/dL High 65-99 [facility] Comment on above: Order Comment: FASTI NG:YES FASTING: YES Result Comment: Fasting reference interval For someone without known diabetes, a glucose value >125 mg/dL indicates that they may have diabetes and this should be confirmed with a follow-up test. Performed By: #### 4 96, 16031 #### [facility] [place] [address] Bladder Changer: Gelacio Alonso MD Potassium [Moles/Vol] 4.3 mmol/L Normal 3.5-5.3 [facility] Comment on above: Order Comment: FASTI NG:YES FASTING: YES Performed By: #### 4 96, 81659 #### [facility] [address], [address] [place] [address] Bladder Changer: Gelacio Alonso MD Sodium [Moles/Vol] 140 mmol/L Normal 135-146 [facility] Comment on above: Order Comment: FASTI NG:YES FASTING: YES Performed By: #### 4 96, 43437 #### [facility] [address], [address] [place] [address] Bladder Changer: Gelacio Alonso MD Urea nitrogen [Mass/Vol] 16 mg/dL Normal 7-25 [facility] Comment on above: Order Comment: FASTI NG:YES FASTING: YES Performed By: #### 4 96, 31929 #### [facility] [address], [address] [place] [address] Bladder Changer: Gelacio Alonso MD HEMOGLOBIN A1con 12-30-2021 HEMOGLOBIN [...] for children. Performed By: #### 4 96, 30665 #### [facility] [address], [address] [place] [address] Bladder Changer: Gelaico Alonso MD BASIC METABOLIC PANELon 05-12 BUN/CREATININE RATIO NOT APPLICABLE Normal 6-22 [facility] Comment on above: Order Comment: FASTI NG:YES FASTING: YES Performed By: #### 1 0165 #### [facility] [address], [address] [place] [address] Bladder Changer: Gelacio Alonso MD Calcium [Mass/Vol] 9.3 mg/dL Normal 8.6-10.3 [facility] Comment on above: Order Comment: FASTI NG:YES FASTING: YES Performed By: #### 1 0165 #### [facility] [address], [address] [place] [address] Bladder Changer: Gelacio Alonso MD Chloride [Moles/Vol] 109 mmol/L Normal 98-110 [facility] Comment on above: Order Comment: FASTI NG:YES FASTING: YES Performed By: #### 1 0165 #### [facility] [address], [address] [place] [address] Bladder Changer: Gelacio Alonso MD CO2 [Moles/Vol] 26 mmol/L Normal 20-32 [facility] Comment on above: Order Comment: FASTI NG:YES FASTING: YES Performed By: #### 1 0165 #### [facility] [address], [address] [place] [address] Bladder Changer: Gelacio Alonso MD Creatinine [Mass/Vol] 0.93 mg/dL Normal 0.70-1.[address] [facility] Comment on above: Order Comment: FASTI NG:YES FASTING: YES Result Comment: For patients >49 years of age, the reference limit for Creatinine is approximately 13% higher for people identified as -Monegasque. Performed By: #### 1 0165 #### [facility] [address], [address] [place] [address] Bladder Changer: Gelacio Alonso MD eGFR NON-AFR. TAIWANESE 88 mL/min/1.73m2 Normal > OR = 60 [facility] Comment on above: Order Comment: FASTI NG:YES FASTING: YES Performed By: #### 1 0165 #### [facility] [address], [address] [place] [address] Bladder Changer: Gelacio Alonso MD GFR/1.73 sq M.predicted among blacks MDRD (S/P/Bld) [Vol rate/Area] 102 mL/min/{1.73_m2} Normal > OR = 60 [facility] Comment on above: Order Comment: FASTI NG:YES FASTING: YES Performed By: #### 1 0165 #### [facility] [address], [address] [place] [address] Bladder Changer: Gelacio Alonso MD Glucose [Mass/Vol] 122 mg/dL High 65-99 [facility] Comment on above: Order Comment: FASTI NG:YES FASTING: YES Result Comment: Fasting reference interval For someone without known diabetes, a glucose value between 100 and 125 mg/dL is consistent with prediabetes and should be confirmed with a follow-up test. Performed By: #### 1 0165 #### [facility] [address], [address] [place] [address] Bladder Changer: Gelacio Alonso MD Potassium [Moles/Vol] 4.5 mmol/L Normal 3.5-5.[address] [facility] Comment on above: Order Comment: FASTI NG:YES FASTING: YES Performed By: #### 1 0165 #### [facility] [address], [address] [place] [address] Bladder Changer: Gelacio Alonso MD Sodium [Moles/Vol] 141 mmol/L Normal 135-146 [facility] Comment on above: Order Comment: FASTI NG:YES FASTING: YES Performed By: #### 1 0165 #### [facility] [address], [address] [place] [address] Bladder Changer: Gelacio Alonso MD Urea nitrogen [Mass/Vol] 24 mg/dL Normal 7-25 [facility] Comment on above: Order Comment: FASTI NG:YES FASTING: YES Performed By: #### 1 0165 #### [facility] [place] [address] Bladder Changer: Gelacio Alonso MD [facility] 02-04-2021 Albumin [Mass/Vol] 4.3 g/dL Normal 3.6-5.1 [facility] Comment on above: Performed By: #### 1 0231, 7600, 5363 #### [facility] [address], [address] [place] [address] Bladder Changer: Gelacio Alonso MD Albumin/Globulin [Mass ratio] 1.7 {ratio} Normal 1.0-2.5 [facility] Comment on above: Performed By: #### 1 0231, 7600, 5363 #### [facility] [address], [address] [place] [address] Bladder Changer: Gelacio Alonso MD ALP [Catalytic activity/Vol] 54 U/L Normal 35-144 [facility] Comment on above: Performed By: #### 1 023, 7599, 5363 #### [facility] [place] [address] Bladder Changer: Gelacio Alonso MD ALT [Catalytic activity/Vol] 19 U/L Normal 9-46 [facility] Comment on above: Performed By: #### 1 023, 7599, 5363 #### [facility] of [address], [address] [place] [address] Bladder Changer: Gelacio Alonso MD AST [Catalytic activity/Vol] 19 U/L Normal 10-35 [facility] Comment on above: Performed By: #### 1 023, 7599, 5363 #### [facility] [place] [address] Bladder Changer: Gelacio Alonso MD Bilirubin [Mass/Vol] 0.6 mg/dL Normal 0.2-1.2 [facility] Comment on above: Performed By: #### 1 023, 7599, 5363 #### [facility] [place] [address] Bladder Changer: Gelacio Alonso MD BUN/CREATININE RATIO NOT APPLICABLE Normal 6-22 [facility] Comment on above: Performed By: #### 1 023, 7599, 5363 #### [facility] [place] [address] Bladder Changer: Gelacio Alonso MD Calcium [Mass/Vol] 9.2 mg/dL Normal 8.6-10.3 [facility] Comment on above: Performed By: #### 1 023, 7599, 5363 #### [facility] [place] [address] Bladder Changer: Gelacio Alonso MD Chloride [Moles/Vol] 106 mmol/L Normal 98-110 [facility] Comment on above: Performed By: #### 1 023, 7599, 5363 #### [facility] [address], [address] [place] [address] Bladder Changer: Gelacio Alonso MD CO2 [Moles/Vol] 28 mmol/L Normal 20-32 [facility] Comment on above: Performed By: #### 1 023, 0, 5363 #### [facility] [address], [address] [place] [address] Bladder Changer: Gelacio Alonso MD Creatinine [Mass/Vol] 0.93 mg/dL Normal 0.70-1.[address] [facility] Comment on above: Result Comment: For patients >49 years of age, the reference limit for Creatinine is approximately 13% higher for people identified as -Monegasque. Performed By: #### 1 230, 7599, 5363 #### [facility] [address], [address] [place] [address] Bladder Changer: Gelacio Alonso MD eGFR NON-AFR. TAIWANESE 88 mL/min/1.73m2 Normal > OR = 60 [facility] Comment on above: Performed By: #### 1 230, 7599, 5363 #### [facility] [place] [address] Bladder Changer: Gelacio Alonso MD GFR/1.73 sq M.predicted among blacks MDRD (S/P/Bld) [Vol rate/Area] 102 mL/min/{1.73_m2} Normal > OR = 60 [facility] Comment on above: Performed By: #### 1 230, 7599, 5363 #### [facility] of [address], [address] [place] [address] Bladder Changer: Gelacio Alonso MD Globulin (S) [Mass/Vol] 2.5 g/dL Normal 1.9-3.7 [facility] Comment on above: Performed By: #### 1 023, 7599, 5363 #### [facility] [place] [address] Bladder Changer: Gelacio Alonso MD Glucose [Mass/Vol] 83 mg/dL Normal 65-99 [facility] Comment on above: Result Comment: Fasting reference interval Performed By: #### 1 0231, 7599, 5363 #### [facility] of [address], [address] [place] [address] Bladder Changer: Gelacio Alonso MD Potassium [Moles/Vol] 4.5 mmol/L Normal 3.5-5.[address] [facility] Comment on above: Performed By: #### 1 023, 7599, 5363 #### [facility] of [address], [address] [place] [address] Bladder Changer: Gelacio Alonso MD Protein [Mass/Vol] 6.8 g/dL Normal 6.1-8.1 [facility] Comment on above: Performed By: #### 1 023, 7599, 5363 #### [facility] [place] [address] Bladder Changer: Gelacio Alonso MD Sodium [Moles/Vol] 141 mmol/L Normal 135-146 [facility] Comment on above: Performed By: #### 1 023, 7599, 5363 #### [facility] [place] [address] Bladder Changer: Gelacio Alonso MD Urea nitrogen [Mass/Vol] 20 mg/dL Normal 7-25 [facility] Comment on above: Performed By: #### 1 023, 7599, 5363 #### [facility] [place] [address] Bladder Changer: Gelacio Alonso MD LIPID PANEL, [facility] 08- Cholesterol [Mass/Vol] 138 mg/dL Normal <200 [facility] Comment on above: Performed By: #### 1 023, 7599, 5363 #### [facility] [place] [address] Bladder Changer: Gelacio Alonso MD Cholesterol in HDL [Mass/Vol] 49 mg/dL Normal > OR = 40 [facility] Comment on above: Performed By: #### 1 023, 7599, 5363 #### [facility] [address], [address] [place] [address] Bladder Changer: Gelacio Alonso MD Cholesterol in LDL [Mass/Vol] [...] of LDL-C. Paul CHERRY et al. JULEE. 2013;310(99): 8906-6934 (http://education.InformedDNA/faq/QXN477) Performed By: #### 1 230, 7599, 5363 #### [facility] [address], [address] [place] [address] Bladder Changer: Gelacio Alonso MD Cholesterol.total/Chol esterol in HDL [Mass ratio] 2.8 {ratio} Normal <5.0 [facility] Comment on above: Performed By: #### 1 230, 7599, 5363 #### [facility] [place] [address] Bladder Changer: Gelacio Alonso MD NON HDL CHOLESTEROL 89 mg/dL (calc) Normal <130 [facility] Comment on above: Result Comment: For patients with diabetes plus 1 major ASCVD risk factor, treating to a non-HDL-C goal of <100 mg/dL (LDL-C of <70 mg/dL) is considered a therapeutic option. Performed By: #### 1 023, 7599, 5363 #### [facility] [place] [address] Bladder Changer: Gelacio Alonso MD Triglyceride [Mass/Vol] 79 mg/dL Normal <150 [facility] Comment on above: Performed By: #### 1 023, 7599, 5363 #### [facility] [place] [address] Bladder Changer: Gelacio Alonso MD PSA, TOTALon 02-04-2021 PSA, TOTAL 0.3 ng/mL Normal < OR = 4.0 [facility] Comment on above: Result Comment: The total PSA value from this assay system is standardized against the WHO standard. The test result will be approximately 20% lower when compared to the equimolar-standardized total PSA (Laurie Priddy). Comparison of serial PSA results should be interpreted with this fact in mind. This test was performed using the Siemens chemiluminescent method. Values obtained from different assay methods cannot be used interchangeably. PSA levels, regardless of value, should not be interpreted as absolute evidence of the presence or absence of disease. Performed By: #### 1 0231, 7600, 5363 #### [facility] [address], [address] [place] [address] Bladder Changer: Gelacio Alonso MD Vital Signs Date Time Vital Sign Value Performing Clinician Faci lity 08-11-2023 10:59-0500 Body height 170.2 cm Day Obando APRN-LAND MANAGEMENT SUPERVISOR Work Phone: [facility] 08-11-2023 10:59-0500 Body mass index (BMI) [Ratio] 34.22 kg/m2 Day Obando EMPLOYEE RELATIONS CONSULTANT-LAND MANAGEMENT SUPERVISOR Work Phone: [facility] 08-11-2023 10:59-0500 Body temperature 97.5 [degF] Day Obando EMPLOYEE RELATIONS CONSULTANT-LAND MANAGEMENT SUPERVISOR Work Phone: [facility] 08-11-2023 10:59-0500 Body weight 99.11 kg Day Obando EMPLOYEE RELATIONS CONSULTANT-LAND MANAGEMENT SUPERVISOR Work Phone: [facility] 08-11-2023 10:59-0500 Diastolic blood pressure 78 mm[Hg] Day Obando EMPLOYEE RELATIONS CONSULTANT-LAND MANAGEMENT SUPERVISOR Work Phone: [facility] 08-11-2023 10:59-0500 Heart rate 84 /min Day Obando APRN-LAND MANAGEMENT SUPERVISOR Work Phone: [facility] 08-11-2023 10:59-0500 SaO2% (BldA) [Mass fraction] 95 % Day Obando EMPLOYEE RELATIONS CONSULTANT-LAND MANAGEMENT SUPERVISOR Work Phone: [facility] 08-11-2023 10:59-0500 Systolic blood pressure 112 mm[Hg] Day Obando EMPLOYEE RELATIONS CONSULTANT-LAND MANAGEMENT SUPERVISOR Work Phone: [facility] 07-31-2023 12:42-0500 SaO2% (BldA) [Mass fraction] 92 % Mike Ahammad DO Work Phone: [facility] 07-31-2023 11:40-0500 Body temperature 98.6 [degF] Mike Ahammad DO Work Phone: [facility] 07-31-2023 11:40-0500 Diastolic blood pressure 64 mm[Hg] Mike Ahammad DO Work Phone: [facility] 07-31-2023 11:40-0500 Heart rate 115 /min Mike Ahammad DO Work Phone: [facility] 07-31-2023 11:40-0500 Respiratory rate 11 /min Mike Ahammad DO Work Phone: [facility] 07-31-2023 11:40-0500 Systolic blood pressure 102 mm[Hg] Mike Ahammad DO Work Phone: [facility] 07-28-2023 12:39-0500 Body temperature 35.0 Mike Ahammad DO Work Phone: [facility] 07-28-2023 11:00-0500 Body temperature 37.0 Mike Ahammad DO Work Phone: [facility] 07-28-2023 10:16-0500 Body temperature 37.0 Mike Ahammad DO Work Phone: [facility] 07-28-2023 06:21-0500 Body height 170.2 cm Mike Ahammad DO Work Phone: [facility] 07-28-2023 06:21-0500 Body mass index (BMI) [Ratio] 33.52 kg/m2 Mike Powelld DO Work Phone: [facility] 07-28-2023 06:21-0500 Body weight 97.07 kg Mike Powelld DO Work Phone: [facility] Encounters Encounter Date Encounter Type Care Provider Facility Start: 04-15-2024 End: 04-15-2024 Orders Only Day L Topher EMPLOYEE RELATIONS CONSULTANT-LAND MANAGEMENT SUPERVISOR Work Phone: [facility] Comment on above: Hypokalemia (Primary Dx) Start: 04-12-2024 End: 04-15-2024 Refill Day L Topher EMPLOYEE RELATIONS CONSULTANT-LAND MANAGEMENT SUPERVISOR Work Phone: [facility] Start: 03-25-2024 End: 03-25-2024 ambulatory Macey Monterroso MD Facility: [facility] Start: 03-13-2024 End: 03-14-2024 Refill Day L Topher EMPLOYEE RELATIONS CONSULTANT-LAND MANAGEMENT SUPERVISOR Work Phone: [facility] Start: 03-04-2024 End: 03-04-2024 ambulatory Macey Monterroso MD Facility: [facility] Start: 01-08-2024 End: 01-08-2024 ambulatory Macey Monterroso MD Facility: [facility] Start: 12-28-2023 End: 12-28-[address] [facility] Start: 12-01-2023 End: 12-01-[address] [facility] Start: 11-27-2023 End: 11-29-2023 ambulatory [facility] Start: 11-27-2023 End: 11-29-2023 Subsequent hospital visit by physician Nikki [facility] Comment on above: Lumbar disc disease with radiculopathy Start: 11-23-2023 End: 11-25-2023 Subsequent hospital visit by physician Keke Faye 4 [facility] Comment on above: 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) Start: 11-23-2023 End: 11-25-2023 ambulatory [facility] Start: 11-13-2023 End: 12-11-2023 ambulatory [facility] Start: 11-01-2023 End: 11-01-2023 [facility] Start: 10-17-2023 End: 11-11-2023 ambulatory [facility] Start: 10-12-2023 End: 11-11-2023 ambulatory [facility] Start: 10-05-2023 End: 10-11-2023 ambulatory [facility] Start: 09-26-2023 End: 10-11-2023 [facility] Start: 09-22-2023 End: 09-24-2023 ambulatory [facility] Start: 09-11-2023 End: 10-11-2023 ambulatory [facility] Start: 08-25-2023 Refill Day Shaw Topher EMPLOYEE RELATIONS CONSULTANT-LAND MANAGEMENT SUPERVISOR [facility] Phone: [facility] Start: 08-22-2023 Orders Only Day L Topher EMPLOYEE RELATIONS CONSULTANT-LAND MANAGEMENT SUPERVISOR Work Phone: [facility] Start: 08-14-2023 End: 09-11-2023 ambulatory [facility] Start: 08-11-2023 End: 08-11-2023 Transitional care manage srvc 14 day discharge Day L Topher EMPLOYEE RELATIONS CONSULTANT-LAND MANAGEMENT SUPERVISOR Work Phone: [facility] Comment on above: Type 2 diabetes ricardo itus without complication, without long- term current use of insulin ([facility]) (Primary Dx); Essential hypertension Start: 08-11-2023 End: 08-11-[address] 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 Start: 06-14-2023 Refill [facility] EMPLOYEE RELATIONS CONSULTANT-LAND MANAGEMENT SUPERVISOR Work Phone: [facility] Internal [facility] - Family Medicine Start: 06-07-2023 End: 06-09-2023 ambulatory [facility] Start: 05-19-2023 End: 05-24-2023 ambulatory [facility] Start: 05-15-2023 End: 05-17-2023 ambulatory [facility] Start: 12-08-2022 ambulatory NARENDRANATH LAKSHMIPATHY . Facility:H1 [...] Adult depression scr eening assessment Day Obando EMPLOYEE RELATIONS CONSULTANT-LAND MANAGEMENT SUPERVISOR Work Phone: Start: 11-27-2023 Radex spine lumbosac ral only bending 2/3 views Mike Ahammad DO Work Phone: Start: 08-11-2023 Follow-up visit Follow-up DAY OBANDO Start: 08-11-2023 Adult depression scr eening assessment Day Obando EMPLOYEE RELATIONS CONSULTANT-LAND MANAGEMENT SUPERVISOR Work Phone: Start: 07-31-2023 Glucose blood reagen [...] DO Work Phone: Start: 07-28-2023 Calcium ionized Miek Ahammad DO Work Phone: Start: 07-28-2023 OPEN [...] Adult depression scr eening assessment Day Obando EMPLOYEE RELATIONS CONSULTANT-LAND MANAGEMENT SUPERVISOR Work Phone: Plan of Treatment Date Care Activity Detail Author Start: 01-11-2026 Screening for malign ant neoplasm of colon Colon Cancer Screening [address] [facility] Start: 03-03-2025 DTaP,Tdap and Td Vaccines (4 - Td or Tdap) DTaP,Tdap and Td Vaccines (4 - Td or Tdap) [facility] Start: 03-03-2025 DTaP/Tdap/Td vaccine (4 - Td or Tdap) DTaP/Tdap/Td vaccine (4 - Td or Tdap) [facility] Start: 12-27-2024 Adult BMI Screening Adult BMI Screen ing [facility] Start: 12-27-2024 Depression Screening Depression Scre ening [facility] Start: 12-27-2024 Fall Risk Screening Fall Risk Screen ing [facility] Start: 12-27-2024 Tobacco Screening Tobacco Screening [facility] Start: 08-10-2024 Adult BMI Screening Adult BMI Screen ing [facility] Start: 08-10-2024 Depression Screening Depression Scre ening [facility] Start: 08-10-2024 Tobacco Screening Tobacco Screening [facility] Start: 07-31-2024 GFR test (Diabetes, CKD 3-4, OR last GFR 15-59) GFR test (Diabetes, CKD 3-4, OR last GFR 15-59) [facility] Start: 07-31-2024 Lipid panel Lipids [facility] Start: 07-29-2024 Hemoglobin A1c measurement A1C test (Diabetic or Prediabetic) [facility] Start: 03-30-2024 Adult BMI Screening Adult BMI Screen ing [facility] Start: 03-30-2024 Depression Screening Depression Scre ening [facility] Start: 03-30-2024 Tobacco Screening Tobacco Screening [facility] Start: 02-19-2024 End: 02-19-2024 Patient encounter procedure 02/19/2024 1:30 PM EDT Office Visit [facility] [address] [place] [address] [address] Floor, [address] [place] [address] Mike Townsend, DO [address] [facility] [address] [place] [address] Scoli & Flex ext xrays [facility] Comment on above: Scoli & Flex ext xra ys Start: 02-11-2024 COVID-19 Vaccine ( season) COVID-19 Vaccine ( season) [facility] Start: 02-11-2024 COVID-19 Vaccine ( season) COVID-19 Vaccine ( season) [facility] Start: 02-11-2024 Influenza vaccination Influenza Vacc ine [facility] Start: 01-26-2024 Abdominal aortic aneurysm screening Abdominal Aortic Aneurysm (AAA) Screen [facility] Start: 01-11-2024 Influenza vaccination Flu vacc ine (Season Ended) MARCELA MIA [facility] Start: 11-27-2023 End: 11-27-2023 Patient encounter procedure 11/27/2023 11:00 AM EDT Office Visit [facility] [address] Floor, [address] [place] [address] Mike Townsend, DO [address] [facility] [address] [place] [address] Print PT OT [facility] Comment on above: Print PT OT Start: 11-10-2023 End: 11-10-2023 Patient encounter procedure 11/10/2023 8:40 AM EDT Office Visit [facility] - [facility] Medicine [address] [place] [address] Day Obando, EMPLOYEE RELATIONS CONSULTANT-LAND MANAGEMENT SUPERVISOR [address] [place] [address] [facility] - [facility] Start: 09-25-2023 End: 09-25-2023 Patient encounter procedure 09/25/2023 11:00 AM EDT Office Visit [place] [id number] [facility] [address] Floor, [facility] [place] [id number] Mike Townsend, DO [address] [facility] [address] [place] [address] 8 wk post op [facility] Comment on above: 8 wk post op Start: 08-14-2023 End: 08-14-2023 Patient encounter procedure 08/14/2023 9:30 AM EST Office Visit [facility] [address] [facility] [address] Floor, [address] [place] [address] Bethany Hwang, EMPLOYEE RELATIONS CONSULTANT - LAND MANAGEMENT SUPERVISOR [address] [facility] [address] [place], [place] [id number] 2 wk post op-ahammad [facility] Comment on above: 2 wk post op-ahammad Start: 06-29-2023 End: 06-29-2023 Patient encounter procedure 06/29/2023 9:00 AM EST Office Visit [facility] Internal [facility] - Family Medicine [address] [place] [address] Day Obando, EMPLOYEE RELATIONS CONSULTANT-LAND MANAGEMENT SUPERVISOR [address] [place] [address] [facility] Start: 02-10-2023 COVID-19 Vaccine ( season) COVID-19 Vaccine ( season) [facility] Start: 02-10-2023 Influenza vaccination Influenza Vacc ine [facility] Start: 01-10-2023 Influenza vaccination Flu vaccine (# 1) [facility] Start: 2019 Respiratory Syncytia l Virus (RSV) or age 60 yrs+ (1 - 1-dose 60+ series) Respiratory Syncytial Virus (RSV) or age 60 yrs+ (1 - 1-dose 60+ series) [facility] Start: 2009 Administration of varicella zoster vaccine Zoster (Shingles) Vaccine (1 of 2) [facility] Start: 2009 Screening for malign ant neoplasm of lung Low dose CT lung screening &/or counseling [facility] Start: 2009 Shingles vaccine (1 of 2) Shingles vaccine (1 of 2) [facility] Start: 01-26-2004 Screening for malign ant neoplasm of colon [facility] Start: 1977 Adult BMI Follow Up Plan Adult BMI Follow Up Plan [facility] Start: 1977 Diabetic foot examination Diabetic Foot Exam [facility] Start: 1977 Glaucoma screening Diabetic retinal exam [facility] Start: 1977 Hepatitis C screening Hepatitis C sc reen [facility] Start: 1977 Urine screening for protein Diabetic Alb to Cr ratio (uACR) test [facility] Start: 1974 HIV screening HIV screen [facility] Start: 1971 Depression Screen Depression Screen [facility] Start: 1969 Diabetic foot examination Diabetic foot exam [facility] Start: 1965 Pneumococcal 0-64 ye ars Vaccine (1 - PCV) Pneumococcal 0-64 years Vaccine (1 - PCV) [facility] Start: 1965 Pneumococcal 0-64 ye ars Vaccine (1 of 2 - PCV) Pneumococcal 0-64 years Vaccine (1 of 2 - PCV) [facility] Start: 1959 COVID-19 Vaccine (#1) COVID-19 Vacci ne (#1) [facility] Start: 1959 Glaucoma screening Diabetic Op hthalmology Exam [facility] Start: 1959 Urine screening for protein Urine Microalbumin [facility] End: 04-15-2025 Basic metabolic 2000 panel - Serum or Plasma Basic Metabolic Panel Lab Routine Hypokalemia 1 Occurrences starting 04/15/2024 until 04/15/2025 [employer] Work Phone: Comment on above: 1 Occurrences starti ng 04/15/2024 until 04/15/2025 End: 07-28-2023 Glucose [Mass/volume] in Serum or Plasma [facility] Comment on above: 4X Daily (AC & HS) u ntil discontinued starting 07/28/2023 One Time for 1 Occur rences starting 07/28/2023 until 07/28/2023 As Needed until disc ontinued starting 07/28/2023 Oxygen therapy [[facility] Data Set] Initiate Oxygen Therapy Protocol Respiratory Care Routine As Needed until discontinued starting 07/28/2023 [facility] Comment on above: As Needed until disc ontinued starting 07/28/2023 Spirometry panel Incentive jerome metry Respiratory Care Routine Every 2hr while awake until discontinued starting 07/28/2023 [facility] Comment on above: Every 2hr while awak e until discontinued starting 07/28/2023 Spirometry panel Incentive jerome metry RT Respiratory Care Routine Every 2hr while awake until discontinued starting 07/29/2023 [employer] Comment on above: Every 2hr while awak e until discontinued starting 07/29/2023 End: 11-23-2023 XR Cervical spine 2 or 3 Views [employer] Work Phone: Comment on above: 1 Occurrences starti ng 11/23/2023 until 11/23/2023 Immunizations Immunization Date Immunization Notes Care Provider Gilma cantu 03-03-2015 tetanus toxoid, redu latricia diphtheria toxoid, and acellular pertussis vaccine, adsorbed Day Topher EMPLOYEE RELATIONS CONSULTANT-LAND MANAGEMENT SUPERVISOR Work Phone: [place] 05-26-2013 tetanus toxoid, redu latricia diphtheria toxoid, and acellular pertussis vaccine, adsorbed Day Topher EMPLOYEE RELATIONS CONSULTANT-LAND MANAGEMENT SUPERVISOR Work Phone: [facility] 07-05-2011 tetanus toxoid, redu latricia diphtheria toxoid, and acellular pertussis vaccine, adsorbed Day Topher EMPLOYEE RELATIONS CONSULTANT-LAND MANAGEMENT SUPERVISOR Work Phone: [employer] Work Phone: Payers Date Payer Category Payer Managed Care Other (unspecified) [employer] [id number] 2022 Private Health Insurance [facility] [id number] 2022-Present [phone] [address] [address] [place] [address] [id number] 2022 Unknown 1959 Medicare [id number] 1959 Unknown [id number] 1959 Unknown [id number] 1959 Unknown [id number] 2.16.840.1.281360.3.579. 2.593 1959 Unknown [id number] 2.16.840.1.722872.3.579. 2.59 1959 Unknown [id number] 2.16.840.1.950994.3.579. 2.593 1959 Unknown [id number] 2.16.840.1.106431.3.579. 2.593 1959 Unknown [id number] 2.16.840.1.855771.3.579. 2.593 1959 Unknown [id number] 2.16.840.1.231011.3.579. 2.593 1959 Unknown [id number] 2.16.840.1.817920.3.579. 2.593 1959 Unknown [id number] 2.16.840.1.673448.3.579. 2.593 1959 Unknown [id number] 2.16.840.1.637153.3.579. 2.593 1959 Unknown [id number] 2.16.840.1.496526.3.579. 2.593 1959 Unknown [id number] 2.16.840.1.598843.3.579. 2.593 1959 Unknown [id number] 2.16.840.1.242168.3.579. 2.593 1959 Unknown [id number] 2.16.840.1.168062.3.579. 2.593 1959 Unknown [id number] 2.16.840.1.203969.3.579. 2.593 1959 Unknown [id number] 2.16.840.1.821269.3.579. 2.177 1959 Unknown [id number] 2.16.840.1.978523.3.579. 2.173 1959 Unknown [id number] 2.16.840.1.240618.3.579. 2.173 1959 Unknown [id number] 2.16.840.1.590403.3.579. 2.173 1959 Unknown [id number] 2.16.840.1.410288.3.579. 2.173 1959 Unknown [id number] 2..840.1.098594.3.579. 2.173 1959 Unknown [id number] 2..840.1.190149.3.579. 2.128 1959 Unknown [id number] 2..840.1.751542.3.579. 2.1285 1959 Unknown [id number] 2..840.1.637777.3.579. 2.128 1959 Unknown [id number] 2..840.1.942386.3.579. 2.1285 1959 Unknown [id number] 2..840.1.089681.3.579. 2.1285 1959 Unknown [id number] 2.16.840.1.979448.3.579. 2.1285 1959 Unknown [id number] 2.16.840.1.129888.3.579. 2.128 1959 Unknown [id number] 2.16.840.1.420862.3.579. 2.1286 1959 Unknown [id number] 2.16.840.1.779584.3.579. 2.1286 1959 Unknown [id number] 2.16.840.1.595133.3.579. 2.1286 1959 Unknown [id number] 2.16.840.1.709618.3.579. 2.1286 1959 Unknown [id number] 2.16.840.1.658263.3.579. 2.1286 1959 Unknown [id number] 2.16.840.1.916293.3.579. 2.1286 1959 Unknown [id number] 2.16.840.1.437090.3.579. 2.175 1959 Unknown [id number] 2.16.840.1.457639.3.579. 2.175 1959 Unknown [id number] 2.16.840.1.126905.3.579. 2.175 1959 Unknown [id number] 2.16.840.1.690434.3.579. 2.175 1959 Unknown [id number] 2.16.840.1.433701.3.579. 2.175 1959 Unknown [id number] 2.16.840.1.412876.3.579. 2.175 1959 Unknown [id number] 2.16.840.1.126740.3.579. 2.196 1959 Unknown [id number] 2.16.840.1.595273.3.579. 2.196 1959 Unknown [id number] 2.16.840.1.433480.3.579. 2.196 Social History Date Type Detail Facility Start: 07-07-2022 End: 11-01-2023 Tobacco smoking status [facility] Ex-smoker [facility] Start: 06-18-1998 End: 06-18-2018 History of tobacco use Current smoker [facility] Start: 06-18-1998 End: 06-18-2018 History of tobacco use Cigarette Smoker [facility] Start: 07-23-2020 End: 07-07-2022 Cigarettes smoked current (pack per day) - Reported 1.5 [facility] Start: 07-07-2022 End: 11-01-2023 Tobacco use and exposure Smokeless tobacco non-user [facility] Start: 03-30-2023 End: 12-28-2023 Alcohol intake Current non-drinker of alcohol (finding) [facility] Start: 09-17-2018 End: 07-23-2020 Alcohol Use Disorder Identification Test - Consumption [AUDIT-C] [facility] Frequency of Alcohol Consumption Never [facility] Start: 1960 Sex Assigned At Not on file P [facility] Start: 07-31-2023 End: 08-14-2023 Alcohol intake Lifetime non-drinker (finding) [facility] Has the electric, [employer], oil, or water [employer] threatened to shut off services in your home in past 12Mo No [employer] (I/We) worried florian er (my/our) food would run out before (I/we) got money to buy more. Never true [facility] Start: 01-15-2015 Sex Male (finding) [facility] Medical Equipment Procedure Code Equipment Code Equipment Origin al Text Equipment Identifier Dates Brng Tib [id number] mm 0d Kn Ant - [id number] Start: 03-27-2019 Cmnt Bn Bio 40gm Rpl [id number] - [id number] Start: 03-27-2019 Cmpt Ptlr Thn 31 mm 3 Pg Kn Ser - [id number] Start: 03-27-2019 Impl Spine Chapin Symphony 4.0mm 240mm - [id number] Start: 07-28-2023 Screw Spnl Polya x 5.5x30 Mm Oct For 4 Mm Chapin Ns Sym - [id number] Start: 07-28-2023 Screw Spnl Polya x 5.5x32 Mm Oct For 4 Mm Chapin Ns Sym - [id number] Start: 07-28-2023 Screw Spnl 3.5x1 4mm Symphony - [id number] Start: 07-28-2023 Screw Spinal F/Symphony Oct System - [id number] Start: 07-28-2023 Cmpt Fem Kn Lt 72.5mm Cr Cmnt - [id number] Start: 03-27-2019 Ty Tib 75mm Cocr Kn I Beam - [id number] Start: 03-27-2019 Goals Date Patient Goal Desired Activity /State Personal health goal Comment on above: Formatting of this n ote might be different from the original. Evaluation of progress towards goal: Maximize work w pt at discharge to strengthen lt knee Clinical Notes 01-20-2022 to 04-12-2024 Telephone Encounter - DINORA Contreras - 04/12/2024 6:20 AM EDTTelephone Encounter - DINORA Contreras - 04/12/2024 6:20 AM EDTBriDINORA Julien - 08/11/2023 10:30 AM EST Note Date & Type Note Facility 04-12-2024 Miscellaneous Notes It has been since Jul since his potassium was checked so I sent BMP to [facility] lab - he can get this drawn at his convenience. documented in this encounter [facility] 04-12-2024 Telephone encounter Note It has been since Jul since his potassium was checked so I sent BMP to [facility] lab - he can get this drawn at his convenience. [facility] 08-11-2023 History of Present illness Narrative Images from the original note were not included. Subjective Patient ID: Beau Ocasio is a 63 y.o. male. The [...] and headaches. Objective Physical Exam Vitals reviewed. Hosted Services Analyst present: Here with spouse. Constitutional: General: He [...] complication, without long-term current use of insulin ([facility]) Essential hypertension Other orders - metoprolol tartrate [...] Contreras 08/14/23 1023 documented in this encounter [facility] 07-31-2023 Hospital course Narrative Images from the original note were not included. Department of Neurosurgery Discharge Summary PATIENT NAME: Beau Ocasio BIRTHDATE: 1960 DATE: 07/31/2023 PRIMARY CARE [...] Left-sided T1 transpedicular discectomy HOSPITAL COURSE Beau Ocasio originally presented to the hospital on [...] followed daily. At time of discharge, Beau Ocasio was tolerating a ADULT DIET; Regular; [...] as: KLOR-CON Vitamin D3 50 MCG (1999 ID) Caps STOP taking these medications HYDROcodone-acetaminophen 5-325 [...] Your Medications These medications were sent to [address] - [phone] - F [phone] [place] [address] metoprolol tartrate 25 MG tablet oxyCODONE-acetaminophen 5-325 MG per tablet Diet: ADULT DIET; Regular; 4 carb choices (60 gm/meal) diet as tolerated Activity: Provided in AVS Wound Care: Daily and as needed Follow-up: in the NS clinic as shown in AVS Time Spent for discharge: 30 minutes JULIETTE Dominique CNP 07/31/2023, 1:19 PM documented in this encounter [facility] 07-31-2023 History of Present illness Narrative Physical Therapy Facility/Department: [address] NEURO Physical Therapy Progress Note Name: Beau Ocasio : 1960 Date of Service: 07/31/2023 [...] Fair Comments: with rwalker AM-PAC - Mobility AM-[facility] Basic Mobility - Inpatient How much help [...] 3-5 steps with a railing?: A Little AM-[facility] Inpatient Mobility Raw Score : 19 AM-[facility] Inpatient T-Scale Score : 45.44 Mobility Inpatient [...] from the original note were not included. [facility] Internal Medicine Teaching Residency Program Inpatient Daily Progress Note Patient: Beau Ocasio Date of : 1960 Acct: [id number] Room: 0101/0101- Admit date: 07/28/2023 Today's date: 07/31/23 Number [...] medical standpoint Soraida Frias PGY-3 Internal Medicine [place], [place] 11:02 AM 07/31/2023 Attestation and add on I have discussed the care of Beau Ocasio , including pertinent history and exam findings, 07/31/23 with the resident. I have seen and examined the patient and the sen elements of all parts of the encounter have been performed by me . I agree with the assessment, plan and orders as documented by the [place] [address]. Answering Service: Images from the original note were not included. Physical Therapy Cancel Note DATE: 07/31/2023 NAME: Beau Ocasio : 1960 Patient not seen this [...] (!) 115 (!) 103 Resp: 10 14 16 Temp: 98.4 F (36.9 C) 97.9 [...] X.Serafin Palomino DO Neurosurgeon Neurosurgical oncologist Office: [phone] Cell: [phone] Images from the original note were not included. 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 [place], [place] 07/30/2023, 7:00 AM Attestation and add on I have discussed the care of Beau Ocasio , including pertinent history and exam findings, 07/30/23 with the resident. I have seen and examined the patient and the sen elements of all parts of the encounter have been performed by me . I agree with the assessment, plan and orders as documented by the resident. Prgressing [place] [address]. Answering Service: [facility] PROGRESS NOTE Shift date: 07/29/2023 Shift day: Monday Shift # 2 Room # 0101/0101-01 Name: Beau Ocasio Sikh: Place of zoroastrian: Referral: Routine Visit Admit Date & Time: 07/28/2023 5:37 AM Assessment: Beau Ocasio is a 63 y.o. male in the hospital . Patient had family support present in room and appeared calm and coping. Intervention: Investor Relations Associate introduced self and title as timber rider. Patient did not appear to mind timber rider presence and engaged in conversation. Wire Mill Rover provided a supportive presence through active listening and words of affirmation. Outcome: Patient appeared receptive to timber rider visit. Plan: Chaplains will remain available to offer spiritual and emotional support as needed. . [facility] [phone] Physical Therapy Facility/Department: [address] NEURO Physical Therapy Initial Assessment Name: Beau Ocasio : 1960 Date of Service: 07/29/2023 Pt admitted for C2-T2 POSTERIOR FUSION, DECOMPRESSION (LEXII SPINE TABLE, PRONE, LI HEADHOLDER, C-ARM, O-ARM, SSEP MONITORING, DEPUY, STEALTH NAVIGATION done 07/28/23. Discharge Recommendations: In [...] transfers CG+1, gait 120' CG+1, forward posture, [place] collar. Body Structures, Functions, Activity Limitations Requiring [...] d/t LE weakness/pain) Transfer Assistance: Independent Active Signaler: Yes Vision/Hearing Vision Vision: Impaired Vision Exceptions: [...] Fair;- Comments: with rwalker Exercise Treatment: ankle [id number] A/AROM Exercises: AAROM B hips, limited by [...] X.Serafin Palomino DO Neurosurgeon Neurosurgical oncologist Office: [phone] Cell: [phone] Images from the original note were not included. 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 Answering Service: Neurosurgery Post op Progress Note [...] in house. documented in this encounter [facility] 07-31-2023 Hospital Discharge instructions oSraida Frias MD - 07/31/2023 8:41 AM EST [...] or concerns. The office phone number is [phone]. documented in this encounter [facility] 09-15-2022 Note CONSULTATION CONSULTATION DATE: [...] our patients to inform us about any [id number] medications or herbal remedies/nutritional supplements/alternative remedies. 2. [...] options with their primary care provider. [facility] 08-09-2022 Note PROCEDURE: XR KNEE R T 3V COMPARISON: None. HISTORY: Pain of right knee joint FINDINGS: BONES:No acute fracture or dislocation. Mild degenerative osteoarthropathy with mild atrophy. SOFT TISSUES:Negative. No visible soft tissue swelling. EFFUSION:None visible. OTHER: Negative. IMPRESSION: Mild osteoarthritis Electronically authenticated by: GUILLERMO AAMDOR Date: 2022-08-09 17:19 [facility] 08-09-2022 Note PAIN MANAGEMENT CONS ULTATION [...] under fluoroscopic guidance. Will as well. [facility] 04-21-2022 Note CONSULTATION CONSULTATION DATE: 04/21/2022 [...] up in the office post procedure. [facility] 01-20-2022 Note CONSULTATION CONSULTATION DATE: 01/20/2022 [...] agrees with the plan of care. [facility] Evaluation note Diagnosis 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)- Primary 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) Primary hypertension Unspecified essential hypertension Type 2 diabetes mellitus (HCC) Type II or unspecified type diabetes mellitus without mention of complication, not stated as uncontrolled [facility]* Diagnosis Type 2 diabetes mellitus without complication, without long-term current use of insulin ([facility]-H[facility])- Primary Essential hypertension Unspecified essential hypertension [facility] Diagnosis 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) [facility]* Diagnosis Lumbar disc disease with radiculopathy Displacement of lumbar intervertebral disc without myelopathy documented in this encounter [facility] note* Diagnosis Hypokalemia- Primary Hypopotassemia [facility] on filedocumented in this encounter [facility] Summary Purpose Family History No [...] of cervical spine with myelopathy (HCC) Pedro Mallory, EMPLOYEE RELATIONS CONSULTANT - LAND MANAGEMENT SUPERVISOR [address] [address] Referral ID Status Reason Start Date Expiration Date Visits Requested Visits Authorized [id number] Pending Review Specialty Services Required 07/31/2023 01/27/2024 [...] CREATED AUTHOR AUTHOR'S ORGANIZ ATION 10/27/2022 [facility] DATE CREATED AUTHOR AUTHOR'S ORGANIZ ATION 05/26/2023 [facility] DATE CREATED AUTHOR AUTHOR'S ORGANIZ ATION 11/28/2023 [facility] DATE CREATED AUTHOR AUTHOR'S ORGANIZ ATION 12/11/2023 [facility] DATE CREATED AUTHOR AUTHOR'S ORGANIZ ATION [facility]20[facility] DATE CREATED AUTHOR AUTHOR'S ORGANIZ ATION 02/20/2024 [facility] DATE CREATED AUTHOR AUTHOR'S ORGANIZ ATION 04/10/2024 [facility] Reason for Visit (unrecogniz ed section and content) Reason Comments Med Refill Specialty Diagnoses / Procedures Referred By Sandor faulkner Referred To Contact Diagnoses 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) 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) [M48.02, G99.2] Procedures WI ARTHRD PST/PSTLAT TQ 1NTRSPC CRV BELW C2 SEGMENT WI ALLOGRAFT FOR SPINE SURGERY ONLY MORSELIZED WI AUTOGRAFT SPINE SURGERY LOCAL FROM SAME INCISION WI MICROSURG TQS REQ USE OPERATING MICROSCOPE WI STEREOTACTIC COMPUTER ASSISTED PX SPINAL WI LAMINECTOMY W/O FFD > 2 VERT SEG CERVICAL WI ARTHRODESIS PST/PSTLAT TQ 1NTRSPC EA ADDL NTRSPC WI ARTHRODESIS PST/PSTLAT TQ 1NTRSPC EA ADDL NTRSPC WI ARTHRODESIS PST/PSTLAT TQ 1NTRSPC EA ADDL NTRSPC WI ARTHRODESIS PST/PSTLAT TQ 1NTRSPC EA ADDL NTRSPC WI ARTHRODESIS PST/PSTLAT TQ 1NTRSPC EA ADDL NTRSPC WI ARTHRODESIS PST/PSTLAT TQ 1NTRSPC EA ADDL NTRSPC WI POSTERIOR SEGMENTAL INSTRUMENTATION 7-12 VRT SEG C2-T2 POSTERIOR FUSION, DECOMPRESSION (SPRINGFIELD SPINE TABLE, PRONE, WHITHARRAL HEADHOLDER, C-ARM, O-ARM, SSEP MONITORING, DEPUY, [employer], [place] CONF# [id number]) *DR. YODER TO ASSIST* SHORT STAY Mike Townsend DO [facility] [address] [place] [address] [facility] [id number] [place] [address] Referral ID Status Reason Start Date Expiration Date Visits Re quested Visits Authorized [id number] 1 1 Reason Comments Follow-up Care Teams (unrecognized sec tion and content) Fender Repairer Relationship Specialty Start Date End Date Walter Littlejohn DO [address], [place] [address] PCP - General Family Medicine 09/17/18 Fender Repairer Relationship Specialty Start Date End Date Day Obando EMPLOYEE RELATIONS CONSULTANT - LAND MANAGEMENT SUPERVISOR [address] [place] [address] PCP - General Family Medicine 04/10/23 Fender Repairer Relationship Specialty Start Date End Date Day Obando EMPLOYEE RELATIONS CONSULTANT-[facility] [address] [place] [address] PCP - General Internal Medicine 06/29/23 Fender Repairer Relationship Specialty Start Date End Date Day Obando EMPLOYEE RELATIONS CONSULTANT-LAND MANAGEMENT SUPERVISOR [address] [place] [address] PCP - General Internal Medicine 06/29/23 Fender Repairer Relationship Specialty Start Date End Date TopherDay EMPLOYEE RELATIONS CONSULTANT-LAND MANAGEMENT SUPERVISOR [address] [place] [address] PCP - General Internal Medicine 06/29/23 Fender Repairer Relationship Specialty Start Date End Date TopherDay EMPLOYEE RELATIONS CONSULTANT - LAND MANAGEMENT SUPERVISOR [address] [place] [address] PCP - General Family Medicine 04/10/23 Fender Repairer Relationship Specialty Start Date End Date TopherDay EMPLOYEE RELATIONS CONSULTANT - LAND MANAGEMENT SUPERVISOR [address] [place] [address] PCP - General Family Medicine 04/10/23 Fender Repairer Relationship Specialty Start Date End Date TopherDay EMPLOYEE RELATIONS CONSULTANT - LAND MANAGEMENT SUPERVISOR [address] [place] [address] PCP - General Family Medicine 04/10/23 Fender Repairer Relationship Specialty Start Date End Date [facility]herMaxDay [facility] [address] [place] [address] PCP - General Internal Medicine 06/29/23 Fender Repairer Relationship Specialty Start Date End Date Day Obando [facility] [address] [place] [address] PCP - General Internal Medicine 06/29/23 Fender Repairer Relationship Specialty Start Date End Date TopherMaxDaykaycee Squires [facility] [address] [place] [address] PCP - General Internal Medicine 06/29/23 Fender Repairer Relationship Specialty Start Date End Date Topher Daykaycee Squires [facility] [address] [place] [address] PCP - General Internal Medicine 06/29/23 Ordered Prescriptions (unrec ognized section and content) Prescription Sig Dispensed Refills Start Date End Da metoprolol tartrate (LOPRESSOR) 25 MG tablet Take [...] Lurdes Wiley, NANCY)1746 (Given - Provider: Lurdes Wiley RN)2149 (Given - Provider: Sweetie Villagomez RN) 0431 (Given - Provider: Sweetie Villagomez RN)1118 (Given - Provider: Ozzie Miranda, NANCY)1745 (Due)2345 (Due) amLODIPine (NORVASC) tablet 10 mg [...] Villagomez RN) 0838 (Given - Provider: Ozzie Miranda RN)153 (Given - Provider: Ozzie Miranda RN)2100 (Due) enoxaparin (LOVENOX) injection 40 mg 40 [...] RN) 0945 (Given - Provider: Lurdes Wiley RN)192 (See Alternative - Provider: Sweetie Villagomez RN)1956 (Given - Provider: Sweetie Villagomez RN) 0837 (Given - Provider: Ozzei Miranda RN)2100 (Due) gabapentin (NEURONTIN) capsule 300 mg (CANCELED) 300 mg, Oral, EVERY 4 HOURS SCHEDULED (6 times per day), First dose (after last modification) on Mon07/30/23 at 1630, Until Discontinued, Post-op 1617 (Given - Provider: Claudia Chaidez RN)1956 (Given - Provider: Sweetie Villagomez RN) 002 (Given - Provider: Sweetie Villagomez RN)043 (Given - Provider: Sweetie Villagomez RN)0838 (Given [...] Carranza RN) 0945 (Given - Provider: Lurdes Wiley, NANCY) 0837 (Given - Provider: Ozzie Miranda, RN) sodium chloride 0.9 % bolus 250 mL (COMPLETED) 250 mL (2.57 mL/kg), IntraVENous, at 245.9 mL/hr, Administer over 61 Minutes, ONCE, On Mon07/30/23 at 1830, For 1 dose 183 (New Bag - Provider: Lurdes Wiley, NANCY)193 (Stopped - Provider: Sweetie Villagomez RN) sodium [...] or Central Line = 20 mL/lumen, Post-op 09 (Given - Provider: Kennedy Carranza RN)2005 (Given - Provider: Sweetie Villagomez, NANCY) 1015 (Not Given - Provider: Lurdes Wiley RN - Reason: Other)1956 (Given - Provider: Sweetie Villagomez, NANCY) 0843 (Given - Provider: Ozzie Miranda, NANCY)2100 (Due) Vitamin D (CHOLECALCIFEROL) tablet 2,000 Units 2,000 Units, Oral, DAILY, First dose on Mon07/28/23 at 1800, Until Discontinued, Post-op 09 (Given - Provider: Kennedy Carranza, NANCY) 0948 (Given - Provider: Lurdes Wiley RN) 0837 (Given - Provider: Ozzie Miranda, RN) PRN Medication Order 07/29/2023 07/30/2023 07/31/2023 [...] numbness/tingling., Post-op 2019 (Given - Provider: Sweetie Villagomez, NANCY) 0103 (Given - Provider: Susana Marshall RN)0554 (Given - Provider: Sweetie Villagomez, NANCY)0953 (Given - Provider: Lurdes Wiley RN) glucagon [...] IntraVENous, EVERY 3 HOURS PRN, Starting on 07/28/23 at 1723, Until 07/30/23 at 0808, Pain [...] Kennedy Carranza, NANCY)1539 (Given - Provider: Kennedy Carranza RN)2006 (Given - Provider: Sweetie Villagomez RN)2303 (Given - Provider: Sweetie Villagomez RN) 0338 (Given - Provider: Sweetie Villagomez, NANCY) iopamidol (ISOVUE-370) 76 % injection 85 mL (COMPLETED) 85 mL, IntraVENous, IMG ONCE PRN, 1 dose, Starting on 07/30/23 at 1445, Until 07/30/23 at 1450, Other 1450 (Given - Provider: Corazon Simpson) oxyCODONE (ROXICODONE) immediate release tablet 10 mg(Linked Group 5) 10 mg, Oral, EVERY 4 HOURS PRN, Starting on 07/28/23 at 1723, Until Discontinued, Pain Severe (7-10), Post-op 0044 (Given - Provider: Poonam Azul RN)0454 (Given - Provider: Poonam Azul RN)0920 (Given - Provider: Kennedy Carranza RN)1335 (Given - Provider: Kennedy Carranza, NANCY)1732 (Given - Provider: Kennedy Carranza, NANCY)2120 (Given - Provider: Sweetie Villagomez RN) 0102 (Given - Provider: Susana Marshall RN)0553 (Given - Provider: Sweetie Villagomez RN)0945 (Given - Provider: Lurdes Wiley RN)1327 (Given - Provider: Lurdes Wiley RN)1746 (Given - Provider: Lurdes Wiley RN)2149 (Given - Provider: Sweetie Villagomez RN) 0147 (Given - Provider: Sweetie Villagomez RN)0716 (Given - Provider: Sweetie Villagomez RN)1117 (Given - Provider: Ozzie Miranda, NANCY)1539 (Given - Provider: Ozzie Miranda, NANCY) oxyCODONE (ROXICODONE) immediate release tablet 5 mg(Linked [...] Villagomez RN)1117 (See Alternative - Provider: Ozzie Miranda RN)1539 (See Alternative - Provider: Ozzie Miranda RN) [...] BE BASED ON THE PRIMARY CLINICAL RECORDS. [employer] [facility]. provides no warranty or guarantee of the accuracy or completeness of information in this document.
--- NOTE | 2024-04-17 08:22 | P.CN_ITS ---
Consult Note: HPI Data of Consult Patient: known to practice within the last 3 years Consult date: 03/04/24 Requesting Physician: Nikki Hadley NP Primary Care Provider: MALGORZATA LITTLEJOHN Consult Narrative Reason for consult: low back pain Narrative: 64yom who presents for assessment. notes worsening low back pain, similar to pain prior to ablation in 10/2022 that provided significant relief >50% for >6 months. imaging shows multilevel facet arthropathy as well as moderate to severe stenosis in lower lumbar spine. continues to engage in a series of provider directed home exercises >6 weeks, without benefit. uses gabapentin, tramadol, and diclofenac. denies adverse med side effects. Recently underwent repeat umberto ateral L4-5 L5-S1 facet RFA with no ongoing relief per pt. Pain 5/10 increasing to 8/10 with standing walking, improved with forward flexion and sitting. Pain radiating into bilateral buttocks and lateral thighs stopping above the knee. cc:: CC: Nikki Hadley NP Review of Systems ROS Status of ROS 10 or more systems reviewed and unremark able except as noted in history and below Musculoskeletal Reports: back pain and joint pain PFSH PFSH Medical History Osteoarthritis ?M19.90 - Unspecified osteoarthritis, unspecified site (ICD-10) Diabetes ?E11.9 - Type 2 diabetes mellitus without complications (ICD-10) HTN (hypertension) ?I10 - Essential (primary) hypertension (ICD-10) High cholesterol ?E78.00 - Pure hypercholesterolemia, unspecified (ICD-10) Surgical History History of arthroscopy of knee ?Z98.890 - Other specified postprocedural states (ICD-10) History of knee replacement ?Z96.659 - Presence of unspecified artificial knee joint (ICD-10) History of hernia repair ?Z98.890 - Other specified postprocedural states (ICD-10) ?Z87.19 - Personal history of other diseases of the digestive system (ICD-10) Meds Home Medications and Allergies Home Medications ?Medication ?Instructions ?Recorded ?Confirmed ?Type amlodipine 10 mg tablet 10 mg PO DAILY 12/08/22 03/25/24 History lisinopril 20 1 tab PO DAILY 12/08/22 03/25/24 History mg-hydrochlorothiazide 12.5 mg tablet lovastatin 10 mg tablet 10 mg PO DAILY 12/08/22 03/25/24 History metformin 1,000 mg tablet 1,000 mg PO BID 12/08/22 03/25/24 History potassium chloride 10 mEq 10 meq PO DAILY 12/08/22 03/25/24 History tablet,extended release (K-Tab) gabapentin 600 mg tablet 600 mg PO QID 06/15/23 03/25/24 History cholecalciferol (vitamin D3) 50 50 mcg PO DAILY 09/21/23 03/25/24 History mcg (2,000 unit) capsule (D3-2000) diclofenac sodium 100 mg 100 mg PO BID 09/21/23 03/25/24 History tablet,extended release 24 hr empagliflozin 25 mg tablet 25 mg PO DAILY 09/21/23 03/25/24 History (Jardiance) metaxalone 800 mg tablet 800 mg PO BID 09/21/23 03/25/24 History multivitamin 1 tab PO DAILY 09/21/23 03/25/24 History tramadol 50 mg tablet 50 mg PO TID PRN pain #90 tabs 02/16/24 03/25/24 Rx Allergies Allergy/AdvReac Type Severity Reaction Status Date / Time No Known Drug Allergies Allergy Verified 03/25/24 07:17 Exam Constitutional Documenting provider has reviewed patient's vital signs: yes Common normals: no apparent distress, oriented x3, healthy appearing, alert and well nourished General appearance: cooperative [facility] Common normals: normocephalic, hearing grossly normal bilaterally and moist oral mucous membranes Head and scalp: normocephalic Eye Common normals: PERRL Pupil: PERRL Neck & C-Spine Common normals: full ROM General: normal visual inspection Chest Common normals: inspection of chest normal Respiratory Common normals: normal respiratory effort, no retractions and no use of accessory muscles Back & Pelvis Lumbar spine/lower back: ROM limited, pain with ROM and straight leg raise negative bilaterally; no paraspinal muscle tenderness and no paraspinal muscle spasm Sacroiliac joints: SI joint(s) abnormal Other: bilatera sij positive sarahi(patricks), gaenslens, thigh thrust, compression test facet pain at L3-4, improved at L4-S1 with bending and twisting on exam continues to report s/s of NC with increased pain standing/walking, improved with sitting and forward flexion Neuro Common normals: oriented x3, CN's II-XII intact bilaterally, moves all extremities, no focal motor deficits, no sensory deficits noted and deep tendon reflexes 2+ bilaterally Sensorium/orientation: alert Motor exam: strength 5/5 throughout and no movement abnormalities noted Psych Common normals: mental status grossly normal, thought process normal, cooperative, affect normal, speech normal and activity/motor behavior normal Speech: normal speech Thought process: normal thought process Results Additional Findings Additional findings: If on a controlled substance or opioids, I have checked an [place]AR[place] report on this patient and there are no aberrancies noted in the prescribing history.??If on a controlled substance or opioid a drug screen was completed and reviewed within the last year, and if there has not been a drug screen completed we ordered one today to monitor higher risk, state monitored pain medication use. As part of providing excellent, safe, comprehensive care, the following was completed at our patient's visit: 1. A medication reconciliation and review to ensure accurate knowledge of current/active medications, including asking our patients to inform us about any zvyp-zxo-wsucjie medications or herbal remedies/nutritional supplements/alternative remedies. 2. A review to specifically ensure our patients have had annual screening for screening for depression, screening for tobacco use, and screening for unhealthy alcohol use. For concerning screenings had a discussion with the patient, provided patient education, and recommended follow-up with primary care provider when appropriate. If patient noted with a risk of falling, they received education on strength, gait, and balance training to prevent future risk of falling. Assessment and Plan Assessment and Plan (1) Lumbar stenosis with neurogenic claudication: Assessment and Plan: pt expressed interest in Vertiflex, has failed ESIs in the past. NS does not recommend surgery at this time, pt recently underwent C3-T2 fusion. Case reviewed with Dr Monterroso who recommends updating lumbar MRI to assess stenosis in consideration of vertiflex. (2) Chronic, continuous use of opioids: (3) Lumbar spondylosis: (4) Muscle spasm: (5) Sacroiliitis: Plan bilateral SIJ injection under fluoroscopy for sacroilitis update lumbar MRI without contrast to further assess lumbar stenosis with NC in consideration of vertiflex, has had NC symptoms greater than 6 months unresponsive to HEP greater than 6 weeks and numerous ESIs continue current medications, tolerating well without side effects. reports functional improvement with medications for 4-5 hours at a time f/u after SIJ injection
== END 2024-04-17 08:00 | disposition home or self-care (01) ==
PROVIDERS: PCP Family Medicine; Visit Provider Nurse Practitioner
DX: M48.062 Spinal stenosis, lumbar region with neurogenic claudication (principal); Z79.891 Long term (current) use of opiate analgesic; M47.816 Spondylosis without myelopathy or radiculopathy, lumbar region; M62.838 Other muscle spasm; M46.1 Sacroiliitis, not elsewhere classified
CPT/HCPCS: G0463

== ENCOUNTER 2024-04-24 07:19 | Outpatient (OUT) | payer OTHER, MEDICARE, SELFPAY ==
--- NOTE | 2024-04-24 | MR_ITS ---
[address] [address] Patient Name: KEDAR OCASIO MRN: [id number] date: 1960 Sex: M Assigned Patient Location: MRI Current Patient Location: [facility] Accession/Order Number: [id number] Exam Date: 04/24/2024 07:37 Report Date: 04/25/2024 10:21 At the request of: ZBIGNIEW BEGUM Procedure: MR lumbar spine wo con EXAM: MR lumbar spine wo con HISTORY: Lumbar stenosis with neurogenic claudication COMPARISON: MRI lumbar spine 03/07/2023. TECHNIQUE: Multiplanar multisequence MR imaging of the lumbar spine was performed without intravenous contrast. FINDINGS: Alignment: Straightening of the normal lumbar lordosis with stepwise trace retrolisthesis of L2 on L3 and L3 on L4. Vertebrae: Vertebral body heights are maintained. No marrow signal abnormalities to suggest neoplasm. Conus medullaris: Conus terminates in normal position at the superior endplate of L1 Normal signal and contour. Degenerative changes: Lower thoracic spine: Moderate disc height loss and Schmorl's nodes. Small disc bulge greater at T11-T12 with moderate canal stenosis. Type III Modic changes present at T11-T12. Mild bilateral foraminal stenosis. T12-L1: No substantial canal or foraminal stenosis. L1-L2: Moderate disc height loss. Small Schmorl's node involving superior plate of L1. Minimal disc bulge. Mild canal stenosis. No substantial foraminal stenosis. L2-L3: Moderate disc height loss. Type II Modic change anteriorly. Minimal eccentric left disc bulge. Minimal canal stenosis. Mild bilateral foraminal stenosis. L3-L4: Resolution of prior extruded disc material. Slight improvement and patency of canal stenosis compared to prior. Moderate disc height loss with mixed type II and type I predominantly Modic change. Diffuse disc bulge eccentric to the left. Mild left greater than right facet arthropathy with thickening of ligamentum flavum. Moderate to advanced canal stenosis. Moderate to advanced left and moderate right foraminal stenosis. L4-L5: Moderate to advanced disc height loss with type II Modic change. Diffuse disc bulge. Mild right greater than left facet arthropathy with thickening of ligamenta flava. Moderate canal stenosis. Moderate to advanced right and moderate left foraminal stenosis. L5-S1: Mild to moderate right facet arthropathy. No substantial canal stenosis. Mild right foraminal stenosis. The left foramen is patent. Upper Sacrum: No focal lesion identified. Additional comments: Visualized portions of intra-abdominal soft tissues are unremarkable. MR/MR lumbar spine wo con IMPRESSION: Moderate degenerative changes lower thoracic and lumbar spine described above with slight improvement canal patency at L3-L4 secondary to resolution of previously visualized extruded disc material. Otherwise no substantial change from prior. Electronically authenticated by: LEONARDO MUÑOZ Date: 04/25/2024 10:21
--- OUTSIDE RECORDS SUMMARY | 2024-04-24 07:23 | XMS_ITS | CCD ---
Author Organization [facility] Care Team Providers Care Dispatcher [employer] Name Role Phone LAKSHMIPATHY ., NARENDRANATH Consulting [...] ., NARENDRANATH Attending Olga vailable FURLONG, DR WLATER Toney Primary Care Unavailable LAKSHMIPATHY ., CRISTHIANENDRANATH [...] WALTER Toney Primary Care Unavailable LAKSHMIPATHY ., NARENDRUSSELLATH Attending Olga vailable LAKSHMIPATHY ., NARENDRANATH Admitting Olga vailable TAQUERIA [facility] Consulting Unavailable TOPHER, DAY Attending Unavailable TOPHER, DAY Admitting Unavailable FURLONG, DR WALTER Toney Primary Care Unavailable [place], DR GUILLERMO Braun Consulting Unavailable TOPHER, DAY Consulting Unavailable LAKSHMIPATHY ., NARENDRUSSELLATH Attending Olga vailable WEST, DR GUILLERMO Braun Consulting Unavailable FURLONG, DR WALTER Toney Primary Care Unavailable LAKSHMIPATHY ., NARENDRANATH Admitting Olga vailable LAKSHMIPATHY ., NARENDRANATH Consulting Olga vailable TOPHER, DAY Attending Unavailable MESHAER, DR WILL Guerrero Consulting Unavailable FURLONG, DR WALTER Toney Primary Care Unavailable TOPHER, DAY Admitting Unavailable TOPHER, DAY Consulting Unavailable LAKSHMIPATHY ., CRISTHIANENDRUSSELLATH Attending Olga vailable LAKSHMIPATHY ., NARENDRANATH Admitting Olga vailable FURLONG, DR WALTER Toney Primary Care Unavailable DR WILL SOARES Consulting Unavailable LAKSHMIPATHY ., NARENDRANATH Consulting Olga vailable LAKSHMIPATHY ., NARENDRANATH Attending Olga vailable LAKSHMIPATHY ., NARENDRANATH Admitting Olga vailable HALKER .LAURA Consulting Unavailable FURLONG, DR WALTER Toney Primary Care Unavailable TOPHER, DAY L Primary Care Unavailable CUAUHTEMOC YODER Referring Unavailable Furlong Walter MOY Primary Care Provider [phone] Topher GRID INSPECTOR - [facility], [facility] Primary Care Provider Topher GRID INSPECTOR-WEB ANALYTICS SPECIALIST, [facility] Primary Care Provider MIKE TOWNSEND Attending Unavailable MIKE TOWNSEND Referring Unavailable TOPHER, DAY L Primary Care Unavailable CARLOS HWANGAH W Referring Unavailable TOPHER, DAY L Primary Care Unavailable JACKS, BETHANY W Referring Unavailable TOPHER, DAY L Primary Care Unavailable AHAMMAD, MIKE Referring Unavailable TOPHER, DAY L Primary Care Unavailable AHAMMAD, MIKE Referring Unavailable TOPHER, DAY L Primary Care Unavailable TOPHER, DAY L Attending Unavailable TOPHER, DAY L Referring Unavailable TOPHER, DAY L Primary Care Unavailable TOPHER, ADY L Attending Unavailable TOPHER, DAY L Referring [...] Unavailable Loc ANDERSON, Macey Rivas Attending Unavailable PEDRO MALLORY Referring Unavailable TOPHER, DAY L Primary Care Unavailable PEDRO MALLORY Referring Unavailable TOPHER, DAY L Primary Care Unavailable AHAMMAD, MIKE Referring Unavailable TOPHER, DAY L Primary Care Unavailable AHAMMAD, MIKE Referring Unavailable TOPHER, DAY L Primary Care Unavailable AHAMMAD, MIKE Referring Unavailable TOPHER, DAY L Primary Care Unavailable AHAMMAD, MIKE Referring Unavailable TOPHER, DAY L Primary Care Unavailable PEDRO MALLORY Referring Unavailable TOPHER, DAY Squires Primary Care Unavailable MIKE TOWNSEND Referring Unavailable TOPHER DAY Squires Primary Care Unavailable TOPHER DAY Squires Referring Unavailable TOPHER DAY Squires Primary Care Unavailable Medications Current Medications Medication [...] Start: 03-30-2023 take 2 tablets by mo [facility] once daily empagliflozin (JARDIANCE) 10 MG [...] Start: 06-19-2023 take 1 tablet by jacques four times daily gabapentin (NEURONTIN) 600 mg tablet TAKE 1 TABLET BY MOUTH FOUR TIMES DAILY 06/19/2023 Active Start: 05-03-2023 End: 07-31-2023 take 300 mg by mouth every four hours as needed 300 mg, Oral, EVERY 4 HOURS PRN, Starting on 07/28/23 at 1723, Until 07/30/23 at 1306, as needed for numbness/tingling., Post-op Start: 06-27-2022 take 1 capsule by mo [facility] once daily gabapentin (NEURONTIN) 100 mg capsule [...] Start: 06-01-2023 take 2 tablets by mo [facility] once daily in the morning metFORMIN [...] E) injection 5 mg polyethylene glycol [id number] mg powder for oral solution (1 source) Osmotic Laxative Start: 07-28-2023 17 g, Oral, DAILY, First dose on Mon07/28/23 at 1745, Until Discontinued, Post-op sennosides, snf 8.6 mg oral tablet (1 source) Start: [...] 03-27-2019 Resolved: 07-01-2022 03-27-2019 Chronic Nutritional deficiencies (9 sources) Vitamin D deficiency; [...] Da te Episodic/Chronic Fluid and electrolyte disorders (11 sources) Hypokalemia; Translations: [Hypokalemia] Onset: 02-25-2022 02-25-2022 Episodic Mood disorders (9 sources) Mood disorders Onset: [...] Test Name Value Interpretation Reference Range Facility BASIC METABOLIC PANLon 04-17 Anion gap [Moles/Vol] 9 mmol/L Normal 5-15 [facility] Comment on above: Performed By: #### B MP #### [facility] ([id number]) [address], [address] [place] [address] Calcium [Mass/Vol] 10.0 mg/dL Normal 8.5-10.5 [facility] Comment on above: Performed By: #### B MP #### [facility] ([id number]) [address], [address] [place] [address] Chloride [Moles/Vol] 101 mmol/L Normal 98-109 [facility] Comment on above: Performed By: #### B MP #### [facility] ([id number]) [address], [address] [place] [address] CO2 [Moles/Vol] 31 mmol/L Normal 22-32 [facility] Comment on above: Performed By: #### B MP #### [facility] ([id number]) [address], [address] [place] [address] Creatinine [Mass/Vol] 1.10 mg/dL Normal 0.60-1.30 [facility] Comment on above: Result Comment: METH OD TRACEABLE TO IDMS STANDARD Performed By: #### B MP #### [facility] ([id number]) [address], [address] [place] [address] GFR/1.73 sq M.predicted among non-blacks MDRD (S/P/Bld) [Vol rate/Area] 74 mL/min/{1.73_m2} Normal >59 [facility] Comment on above: Result Comment: Reported eGFR is based on the CKD-EPI 2020 equation that does not use a race coefficient. Performed By: #### B MP #### [facility] ([id number]) [address], [address] [place] [address] Glucose [Mass/Vol] 106 mg/dL High 65-99 [facility] Comment on above: Performed By: #### B MP #### [facility] ([id number]) [address] [place] [address] Potassium [Moles/Vol] 4.7 mmol/L Normal 3.5-5.0 [facility] Comment on above: Performed By: #### B MP #### [facility] ([id number]) [address] [place] [address] Sodium [Moles/Vol] 141 mmol/L Normal 134-146 [facility] Comment on above: Performed By: #### B MP #### [facility] ([id number]) [address], [address] [place] [address] Urea nitrogen [Mass/Vol] 20 mg/dL Normal 5-27 [facility] Comment on above: Performed By: #### B MP #### [facility] ([id number]) [address] [place] [address] No Panel Informationon 11-28 1. Mild dextroscoliosis of the thoracolumbar junction with a Bowling angle of approximately 13 degrees. 2. Status post posterior fusion from C3 through T1 without hardware complication. 3. 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 [facility] EXAMINATION: TWO XRAY VIEWS SCOLIOSIS SERIES; XRAY [...] intact. The paravertebral soft tissues are unremarkable. [facility] Blake Hale MD - 11/29/2023 EXAMINATION: TWO XRAY VIEWS [...] pronounced at L3-4 to a severe degree. [facility] [employer] No Panel InformationOrdered By: Blake Hale on 11-29-[address] [facility] [facility] Phone: XR LUMBAR SPINE FLEXION AND [...] Blake Hale MD 11/29/23 Final result Normal [facility] XR SPINE ENTIRE (2-3 VIEWS)o n 11-29-2023 [...] Blake Hale MD 11/29/23 Final result Normal [facility] No Panel Informationon 06-17 -2024 Radiology Study observation (narrative) [facility] XR CERVICAL SPINE (2-3 VIEWS )on 11-27-2023 [...] Martinez Kelly MD 11/27/23 Final result Normal [facility] XR CERVICAL SPINE (2-3 VIEWS )on [...] Cortez Peralta DO 09/24/23 Final result Normal [facility] Basic Metab w/rfx MGon 07-31 Anion gap [Moles/Vol] 11 mmol/L Normal 9-17 [facility] Comment on above: Performed By: #### T YS #### [employer] [address] [place] [id number] Circular Saw Filer: Kan Craig MD Calcium [Mass/Vol] 9.0 mg/dL Normal 8.6-10.4 [facility] Comment on above: Performed By: #### T YS #### [facility] [address] [place] [address] Circular Saw Filer: Kan Craig MD Chloride [Moles/Vol] 98 mmol/L Normal 98-107 [facility] Comment on above: Performed By: #### T YS #### [facility] [address] [place] [address] Circular Saw Filer: Kan Craig MD CO2 [Moles/Vol] 24 mmol/L Normal 20-31 [facility] Comment on above: Performed By: #### T YS #### [address] [address] Circular Saw Filer: Kan Craig MD Creatinine [Mass/Vol] 0.6 mg/dL Low 0.7-1.2 [facility] Comment on above: Performed By: #### T YS #### [address] [address] Circular Saw Filer: Kan Craig MD GFR/1.73 sq M.predicted among non-blacks MDRD (S/P/Bld) [Vol rate/Area] mL/min/{1.73_m2} Normal >60 [facility] Comment on above: Result Comment: These results [...] secretion. Performed By: #### T YS #### [address] [address] Circular Saw Filer: Kan Craig MD Glucose [Mass/Vol] 155 mg/dL High 70-99 [facility] Comment on above: Performed By: #### T YS #### [address] [address] Circular Saw Filer: Kan Craig MD Potassium [Moles/Vol] 3.7 mmol/L Normal 3.7-5.3 [facility] Comment on above: Performed By: #### T YS #### [facility] [address] [place], [place] [phone] Circular Saw Filer: Kan Craig MD Sodium [Moles/Vol] 133 mmol/L Low 135-144 [facility] Comment on above: Performed By: #### T YS #### [facility] [address] [place], [place] [id number] Circular Saw Filer: Kan Craig MD Urea nitrogen [Mass/Vol] 14 mg/dL Normal 8-23 [facility] Comment on above: Performed By: #### T YS #### [facility] [place], [place] [id number] Circular Saw Filer: Kan Craig MD Basic Metabolic Panel w/ Ref analisa to [facility] 07-31-2023 Anion gap [Moles/Vol] 11 mmol/L 9 - 17 mmol/L [facility] [employer] Calcium [Mass/Vol] 9.0 mg/dL 8.6 - 10. 4 mg/dL [facility] [facility] Chloride [Moles/Vol] 98 mmol/L 98 - 10 7 mmol/L [facility] [employer] [facility] CO2 [Moles/Vol] 24 mmol/L 20 - 31 mmol/L [facility] Creatinine [Mass/Vol] 0.6 mg/dL Low 0.7 - 1.2 mg/dL [facility] [employer] [facility] GFR/1.73 sq M.predicted MDRD (S/P/Bld) [Vol rate/Area] - [facility] Comment on above: These results are not [...] 155 mg/dL High 70 - 99 mg/dL [facility] Potassium [Moles/Vol] 3.7 mmol/L 3.7 - 5.3 mmol/L [facility] Sodium [Moles/Vol] 133 mmol/L Low 135 - 144 mmol/L [facility] Urea nitrogen [Mass/Vol] 14 mg/dL 8 - 23 mg/dL [facility] CBC with Auto Differentialon 07-31-2023 Basophils (Bld) [#/Vol] 0.09 10*3/uL [facility] Basophils/100 WBC (Bld) 1 % 0 - 2 % [facility] Eosinophils (Bld) [#/Vol] 0.09 10*3/uL [facility] Eosinophils/100 WBC (Bld) 1 % 1 - 4 % [facility] Erythrocyte distribution width (RBC) [Ratio] 11.9 % 11.8 - 14.4 % [facility] Hematocrit (Bld) [Volume fraction] 45.5 % 40.7 - 50.3 % [facility] Hemoglobin (Bld) [Mass/Vol] 15.3 g/dL 13.0 - 17.0 g/dL [facility] Immature granulocytes (Bld) [#/Vol] [facility] Immature granulocytes/100 WBC (Bld) 0 % 0 [facility] Interpretation and review of laboratory results Abnormal [facility] Lymphocytes/100 WBC (Bld) 22 % Low 24 - 43 % [facility] Lymphocytes/100 WBC (Bld) 1.89 % [facility] MCH (RBC) [Entitic mass] 31.3 pg 25.2 - 33.5 pg [facility] MCHC (RBC) [Mass/Vol] 33.6 g/dL 28.4 - 34.8 g/dL [facility] MCV (RBC) [Entitic vol] 93.0 fL 82.6 - 102.9 fL [facility] Monocytes/100 WBC (Bld) 11 % 3 - 12 % [facility] Monocytes/100 WBC (Bld) 0.96 % [facility] Neutrophils/100 WBC (Bld) 65 % 36 - 65 % [facility] Nucleated RBC/100 WBC (Bld) [Ratio] 0.0 % 0.0 per 100 WBC [facility] Platelet mean volume (Bld) [Entitic vol] 10.6 fL 8.1 - 13.5 fL [facility] Platelets (Bld) [#/Vol] 234 10*3/uL [facility] RBC (Bld) [#/Vol] 4.89 10*6/uL 4.21 - 5.7 7 m/uL [facility] Segmented neutrophils/100 WBC (Bld) 5.57 % [facility] WBC other (Bld) [#/Vol] 8.[address] [facility] CBC with Diffon 07-31-2023 Abs. Basophil 0.09 k/uL Normal 0.00-0.20 [facility] Comment on above: Performed By: #### T YS #### [place] [address] Circular Saw Filer: Kan Craig MD Abs.Imm.Granulocyte <0.03 Normal 0.00-0.30 [facility] Comment on above: Performed By: #### T YS #### [place] [address] Circular Saw Filer: Kan Craig MD Abs.Neutrophil (Seg) 5.57 k/uL Normal 1.50-8.10 [facility] Comment on above: Performed By: #### T YS #### [place] [address] Circular Saw Filer: Kan Craig MD Basophils/100 WBC (Bld) 1 % Normal 0-2 [facility] Comment on above: Performed By: #### T YS #### [place] [address] Circular Saw Filer: Kan Craig MD Eosinophils (Bld) [#/Vol] 0.09 10*3/uL Normal 0.00-0.44 [facility] Comment on above: Performed By: #### T YS #### [address] [address] Circular Saw Filer: Kan Craig MD Eosinophils/100 WBC (Bld) 1 % Normal 1-4 [facility] Comment on above: Performed By: #### T YS #### [address] [address] Circular Saw Filer: Kan Craig MD Erythrocyte distribution width (RBC) [Ratio] 11.9 % Normal 11.8-14.4 [facility] Comment on above: Performed By: #### T YS #### [address] [address] Circular Saw Filer: Kan Craig MD Hematocrit (Bld) [Volume fraction] 45.5 % Normal 40.7-50.3 [facility] Comment on above: Performed By: #### T YS #### [address] [address] Circular Saw Filer: Kan Craig MD Hemoglobin (Bld) [Mass/Vol] 15.3 g/dL Normal 13.0-17.0 [facility] Comment on above: Performed By: #### T YS #### [address] [address] Circular Saw Filer: Kan Craig MD Immature granulocytes/100 WBC (Bld) 0 % Normal 0 [facility] Comment on above: Performed By: #### T YS #### [address] [address] Circular Saw Filer: Kan Craig MD Lymphocytes (Bld) [#/Vol] 1.89 10*3/uL Normal 1.10-3.70 [facility] Comment on above: Performed By: #### T YS #### [address] [address] Circular Saw Filer: Kan Craig MD Lymphocytes/100 WBC (Bld) 22 % Low 24-43 [facility] Comment on above: Performed By: #### T YS #### [address] [address] Circular Saw Filer: Kan Craig MD MCH (RBC) [Entitic mass] 31.3 pg Normal 25.2-33.5 [facility] Comment on above: Performed By: #### T YS #### [address] [address] Circular Saw Filer: Kan Craig MD MCHC (RBC) [Mass/Vol] 33.6 g/dL Normal 28.4-34.8 [facility] Comment on above: Performed By: #### T YS #### [address] [address] Circular Saw Filer: Kan Craig MD MCV (RBC) [Entitic vol] 93.0 fL Normal 82.6-102.9 [facility] Comment on above: Performed By: #### T YS #### [address] [address] Circular Saw Filer: Kan Craig MD Monocytes (Bld) [#/Vol] 0.96 10*3/uL Normal 0.10-1.20 [facility] Comment on above: Performed By: #### T YS #### [address] [address] Circular Saw Filer: Kan Craig MD Monocytes/100 WBC (Bld) 11 % Normal 3-12 [facility] Comment on above: Performed By: #### T YS #### [address] [address] Circular Saw Filer: Kan Craig MD Neutrophil (Seg) 65 % Normal 36-65 [facility] Comment on above: Performed By: #### T YS #### [address] [address] Circular Saw Filer: Kan Craig MD NRBC Automated 0.0 per 100 WBC Normal 0.0 [facility] Comment on above: Performed By: #### T YS #### [address] [address] Circular Saw Filer: Kan Craig MD Platelet mean volume (Bld) [Entitic vol] 10.6 fL Normal 8.1-13.5 [facility] Comment on above: Performed By: #### T YS #### [address] [address] Circular Saw Filer: Kan Craig MD Platelets (Bld) [#/Vol] 234 10*3/uL Normal 138-453 [facility] Comment on above: Performed By: #### T YS #### [address] [address] Circular Saw Filer: Kan Craig MD RBC (Bld) [#/Vol] 4.89 10*6/uL Normal 4.21-5.77 [facility] Comment on above: Performed By: #### T YS #### [address] [address] Circular Saw Filer: Kan Craig MD WBC (Bld) [#/Vol] 8.6 10*3/uL Normal 3.5-11.3 [facility] Comment on above: Performed By: #### T YS #### [address] [address] Circular Saw Filer: Kan Craig MD EKG 12 LeadOrdered By: Froilan Hartmann on 07-31-2023 Atrial Rate 114 BPM [employer] Phone: P Donie 48 degrees [employer] Phone: P-R Interval 168 ms [facility] [employer] Work Phone: Q-T Interval 316 ms [facility] [employer] Work Phone: QRS Duration 86 ms [facility]ON [employer] Work Phone: QTc Calculation (Bazett) 435 ms [facility] Work Phone: R Donie -37 degrees MARCELA [employer] Work Phone: T Donie 37 degrees MARCELA [employer] Work Phone: Ventricular Rate 114 BPM [facility] [employer] Work Phone: MARCELA [employer] Work Phone: EKG 12 Leadon 07-31-2023 Sinus tachycardia Left axis deviation Low voltage QRS 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 rate has increased BY 44 BPM [facility] Froilan Kaminski MD - 07/31/2023 Sinus tachycardia Left axis deviation Low voltage QRS 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 rate has increased BY 44 BPM [facility] [employer] Glucose,Whole Bloodon 2023 Glucose [Mass/Vol] 177 mg/dL High 75-110 [facility] Glucose [Mass/Vol] 166 mg/dL High 75-110 [facility] Lipid Panelon 07-31-2023 Cholesterol [Mass/Vol] 141 mg/dL NINF - 200 mg/dL [facility] Comment on above: Cholesterol Guidelines: <200 Desirable 200-240 Borderline >240 Undesirable Cholesterol in HDL [Mass/Vol] 34 mg/dL Low 40 - PINF mg/dL [facility] Comment on above: HDL Guidelines: <40 Undesirable 40-59 Borderline >59 Desirable Cholesterol in LDL [Mass/Vol] 73 mg/dL 0 - 130 mg/dL [facility] Comment on above: LDL Guidelines: <100 Desirable 100-129 Near to/above Desirable 130-159 Borderline >159 Undesirable Direct (measured) LDL and calculated LDL are not interchangeable tests. Cholesterol.total/Chol esterol in HDL [Mass ratio] 4.1 {ratio} NINF - 5 [facility] Triglyceride [Mass/Vol] 169 mg/dL High NINF - 150 mg/dL [facility] Comment on above: Triglyceride Guidelines: <150 Desirable 150-199 Borderline 200-499 High >499 Very high Based on AHA Guidelines for fasting triglyceride, March 2012. Lipid Profileon 07-31-2023 Cholesterol [Mass/Vol] 141 mg/dL Normal <200 [facility] Comment on above: Result Comment: Cholesterol Guidelines: <200 Desirable 200-240 Borderline >240 Undesirable Performed By: #### T YS #### [address] [address] Circular Saw Filer: Kan Craig MD Cholesterol in HDL [Mass/Vol] 34 mg/dL Low >40 [facility] Comment on above: Result Comment: HDL Guidelines: <40 Undesirable 40-59 Borderline >59 Desirable Performed By: #### T YS #### [facility] [address] [place] [address] Circular Saw Filer: Kan Craig MD Cholesterol in LDL [Mass/Vol] 73 mg/dL Normal 0-130 [facility] Comment on above: Result Comment: LDL Guidelines: <100 Desirable 100-129 Near to/above Desirable 130-159 Borderline >159 Undesirable Direct (measured) LDL and calculated LDL are not interchangeable tests. Performed By: #### T YS #### [facility] [address] [place] [address] Circular Saw Filer: Kan Craig MD Cholesterol.total/Chol esterol in HDL [Mass ratio] 4.1 {ratio} Normal <5 [facility] Comment on above: Performed By: #### T YS #### [facility] [address] [place] [address] Circular Saw Filer: Kan Craig MD Triglyceride [Mass/Vol] 169 mg/dL High <150 [facility] Comment on above: Result Comment: Triglyceride Guidelines: <150 Desirable 150-199 Borderline 200-499 High >499 Very high Based on AHA Guidelines for fasting triglyceride, March 2012. Performed By: #### T YS #### [facility] [address] [place] [address] Circular Saw Filer: Kan Craig MD No Panel Informationon 07-31 Interpretation and review of laboratory results Abnormal [facility] POC Glucose Fingerstickon Glucose [Mass/Vol] 177 mg/dL High 75 - 110 mg/dL [facility] Interpretation and review of laboratory results Abnormal [facility] Glucose [Mass/Vol] 166 mg/dL High 75 - 110 mg/dL [facility] Interpretation and review of laboratory results Abnormal [facility] [employer] CT CHEST PULMONARY EMBOLISM W CONTRASTon 07-30-2023 [...] Adan Hodges MD 07/30/23 Final result Normal [facility] 1. No evidence of pulmonary embolism or acute pulmonary abnormality. 2. Three-vessel coronary artery calcification. [facility] EXAMINATION: CTA OF THE CHEST [...] No acute bone or soft tissue abnormality. [facility] Adan Hodges MD - 07/30/2023 EXAMINATION: [...] pulmonary abnormality. 2. Three-vessel coronary artery calcification. [facility] Radiology Study observation (narrative) [facility] CT CHEST PULMONARY EMBOLISM W CONTRASTOrdered By: Adan Hodges on 07-30-2023 [facility] [employer] Work Phone: Glucose,Whole Bloodon 2023 Glucose [Mass/Vol] 167 mg/dL High 75-110 [facility] Glucose [Mass/Vol] 149 mg/dL High 75-110 [facility] Glucose [Mass/Vol] 153 mg/dL High 75-110 [facility] Glucose [Mass/Vol] 142 mg/dL High 75-110 [facility] Hemoglobin A1Con 07-30-2023 Average glucose Estimated from glycated hemoglobin (Bld) [Mass/Vol] 137 mg/dL [facility] Comment on above: The ADA and AACC rec ommend providing the estimated average glucose result to permit better patient understanding of their HBA1c result. HbA1c (Bld) [Mass fraction] 6.4 % High 4.0 - 6.0 % [facility] Interpretation and review of laboratory results Abnormal [facility] Glucose [Mass/Vol] 137 mg/dL Normal [facility] Comment on above: Result Comment: The ADA and AACC recommend providing the estimated average glucose result to permit better patient understanding of their HBA1c result. Performed By: #### B MPX, CDP, GLYHGB ####[id number] [place] [address] [facility] Director: Kan Craig MD HbA1c (Bld) [Mass fraction] 6.4 % High 4.0-6.0 [facility] Comment on above: Performed By: #### B MPX, CDP, GLYHGB ####[facility] [facility] [employer] [facility] [address] [address] Lab Director: Kan Craig MD POC Glucose Fingerstickon Glucose [Mass/Vol] 167 mg/dL High 75 - 110 mg/dL [facility] Interpretation and review of laboratory results Abnormal [facility] Glucose [Mass/Vol] 149 mg/dL High 75 - 110 mg/dL [facility] Interpretation and review of laboratory results Abnormal [facility] Glucose [Mass/Vol] 153 mg/dL High 75 - 110 mg/dL [facility] Interpretation and review of laboratory results Abnormal [facility] Glucose [Mass/Vol] 142 mg/dL High 75 - 110 mg/dL [facility] Interpretation and review of laboratory results Abnormal [facility] Basic Metab w/rfx MGon 07-29 Anion gap [Moles/Vol] 11 mmol/L Normal 9-17 [facility] Comment on above: Performed By: #### T YS #### [address] [address] Circular Saw Filer: Kan Craig MD Calcium [Mass/Vol] 8.5 mg/dL Low 8.6-10.4 [facility] Comment on above: Performed By: #### T YS #### [facility] [address] [place] [phone] Circular Saw Filer: Kan Craig MD Chloride [Moles/Vol] 105 mmol/L Normal 98-107 [facility] Comment on above: Performed By: #### T YS #### [facility] [address] [place] [phone] Circular Saw Filer: Kan Craig MD CO2 [Moles/Vol] 21 mmol/L Normal 20-31 [facility] Comment on above: Performed By: #### T YS #### [address] [address] Circular Saw Filer: Kan Craig MD Creatinine [Mass/Vol] 0.8 mg/dL Normal 0.7-1.2 [facility] Comment on above: Performed By: #### T YS #### [address] [address] Circular Saw Filer: Kan Craig MD GFR/1.73 sq M.predicted among non-blacks MDRD (S/P/Bld) [Vol rate/Area] mL/min/{1.73_m2} Normal >60 [facility] Comment on above: Result Comment: These results [...] secretion. Performed By: #### T YS #### [address] [address] Circular Saw Filer: Kan Craig MD Glucose [Mass/Vol] 146 mg/dL High 70-99 [facility] Comment on above: Performed By: #### T YS #### [address] [address] Circular Saw Filer: Kan Craig MD Potassium [Moles/Vol] 4.4 mmol/L Normal 3.7-5.3 [facility] Comment on above: Performed By: #### T YS #### [facility] [address] [place] [address] Circular Saw Filer: Kan Craig MD Sodium [Moles/Vol] 137 mmol/L Normal 135-144 [facility] Comment on above: Performed By: #### T YS #### [address] [address] Circular Saw Filer: Kan Craig MD Urea nitrogen [Mass/Vol] 14 mg/dL Normal 8-23 [facility] Comment on above: Performed By: #### T #### [facility] [address] [phone] Circular Saw Filer: Kan Craig MD Basic Metabolic Panel w/ Ref analisa to MGon 07-29-2023 Anion gap [Moles/Vol] 11 mmol/L 9 - 17 mmol/L [facility] Calcium [Mass/Vol] 8.5 mg/dL Low 8.6 - 10. 4 mg/dL [facility] [employer] Chloride [Moles/Vol] 105 mmol/L 98 - 10 7 mmol/L [facility]Pid CO2 [Moles/Vol] 21 mmol/L 20 - 31 mmol/L [facility] Creatinine [Mass/Vol] 0.8 mg/dL 0.7 - 1.2 mg/dL [facility] GFR/1.73 sq M.predicted MDRD (S/P/Bld) [Vol rate/Area] - PINF [facility] Comment on above: These results are not [...] 146 mg/dL High 70 - 99 mg/dL [facility] Interpretation and review of laboratory results Abnormal [facility] Potassium [Moles/Vol] 4.4 mmol/L 3.7 - 5.3 mmol/L [facility] [employer] Shield Sodium [Moles/Vol] 137 mmol/L 135 - 144 mmol/L [facility] Urea nitrogen [Mass/Vol] 14 mg/dL 8 - 23 mg/dL [facility] CBC with Auto Differentialon 07-29-2023 Basophils (Bld) [#/Vol] 0.06 10*3/uL [facility] Basophils/100 WBC (Bld) 1 % 0 - 2 % [facility] Eosinophils (Bld) [#/Vol] [facility] Eosinophils/100 WBC (Bld) 0 % Low 1 - 4 % [facility] Erythrocyte distribution width (RBC) [Ratio] 12.2 % 11.8 - 14.4 % [facility] Hematocrit (Bld) [Volume fraction] 46.7 % 40.7 - 50.3 % [facility] Hemoglobin (Bld) [Mass/Vol] 15.5 g/dL 13.0 - 17.0 g/dL [facility] Immature granulocytes (Bld) [#/Vol] 0.05 10*3/uL [facility] Immature granulocytes/100 WBC (Bld) 0 % 0 [facility] Interpretation and review of laboratory results Abnormal [facility] Lymphocytes/100 WBC (Bld) 16 % Low 24 - 43 % [facility] Lymphocytes/100 WBC (Bld) 1.94 % [facility] MCH (RBC) [Entitic mass] 31.4 pg 25.2 - 33.5 pg [facility] MCHC (RBC) [Mass/Vol] 33.2 g/dL 28.4 - 34.8 g/dL [facility] MCV (RBC) [Entitic vol] 94.7 fL 82.6 - 102.9 fL [facility] Monocytes/100 WBC (Bld) 10 % 3 - 12 % [facility] Monocytes/100 WBC (Bld) 1.24 % High [facility] Neutrophils/100 WBC (Bld) 73 % High 36 - 65 % [facility] Nucleated RBC/100 WBC (Bld) [Ratio] 0.0 % 0.0 per 100 WBC [facility] Platelet mean volume (Bld) [Entitic vol] 10.8 fL 8.1 - 13.5 fL [facility] Platelets (Bld) [#/Vol] 243 10*3/uL [facility] RBC (Bld) [#/Vol] 4.93 10*6/uL 4.21 - 5.7 7 m/uL [facility] Segmented neutrophils/100 WBC (Bld) 8.89 % High [facility] WBC other (Bld) [#/Vol] 12.[address] [facility] CBC with Diffon 07-29-2023 Abs. Basophil 0.06 k/uL Normal 0.00-0.20 [facility] Comment on above: Performed By: #### T YS #### [address] [address] Circular Saw Filer: Kan Craig MD Abs. Eosinophil <0.03 Normal 0.00-0.44 [facility] Comment on above: Performed By: #### T YS #### [address] [address] Circular Saw Filer: Kan Craig MD Abs.Imm.Granulocyte 0.05 k/uL Normal 0.00-0.30 [facility] Comment on above: Performed By: #### T YS #### [address] [address] Circular Saw Filer: aKn Craig MD Abs.Neutrophil (Seg) 8.89 k/uL High 1.50-8.10 [facility] Comment on above: Performed By: #### T YS #### [address] [address] Circular Saw Filer: Kan Craig MD Basophils/100 WBC (Bld) 1 % Normal 0-2 [facility] Comment on above: Performed By: #### T YS #### [address] [address] Circular Saw Filer: Kan Craig MD Eosinophils/100 WBC (Bld) 0 % Low 1-4 [facility] Comment on above: Performed By: #### T YS #### [address] [address] Circular Saw Filer: Kan Craig MD Erythrocyte distribution width (RBC) [Ratio] 12.2 % Normal 11.8-14.4 [facility] Comment on above: Performed By: #### T YS #### [address] [address] Circular Saw Filer: Kan Craig MD Hematocrit (Bld) [Volume fraction] 46.7 % Normal 40.7-50.3 [facility] Comment on above: Performed By: #### T YS #### [address] [address] Circular Saw Filer: Kan Craig MD Hemoglobin (Bld) [Mass/Vol] 15.5 g/dL Normal 13.0-17.0 [facility] Comment on above: Performed By: #### T YS #### [address] [address] Circular Saw Filer: Kan Craig MD Immature granulocytes/100 WBC (Bld) 0 % Normal 0 [facility] Comment on above: Performed By: #### T YS #### [address] [address] Circular Saw Filer: Kan Craig MD Lymphocytes (Bld) [#/Vol] 1.94 10*3/uL Normal 1.10-3.70 [facility] Comment on above: Performed By: #### T YS #### [address] [address] Circular Saw Filer: Kan Craig MD Lymphocytes/100 WBC (Bld) 16 % Low 24-43 [facility] Comment on above: Performed By: #### T YS #### [address] [address] Circular Saw Filer: Kan Craig MD MCH (RBC) [Entitic mass] 31.4 pg Normal 25.2-33.5 [facility] Comment on above: Performed By: #### T YS #### [address] [place] [address] Circular Saw Filer: Kan Craig MD MCHC (RBC) [Mass/Vol] 33.2 g/dL Normal 28.4-34.8 [facility] Comment on above: Performed By: #### T YS #### [address] [address] Circular Saw Filer: Kan Craig MD MCV (RBC) [Entitic vol] 94.7 fL Normal 82.6-102.9 [facility] Comment on above: Performed By: #### T YS #### [address] [address] Circular Saw Filer: Kan Craig MD Monocytes (Bld) [#/Vol] 1.24 10*3/uL High 0.10-1.20 [facility] Comment on above: Performed By: #### T YS #### [address] [address] Circular Saw Filer: Kan rCaig MD Monocytes/100 WBC (Bld) 10 % Normal 3-12 [facility] Comment on above: Performed By: #### T YS #### [address] [address] Circular Saw Filer: Kan Craig MD Neutrophil (Seg) 73 % High 36-65 [facility] Comment on above: Performed By: #### T YS #### [address] [address] Circular Saw Filer: Kan Craig MD NRBC Automated 0.0 per 100 WBC Normal 0.0 [facility] Comment on above: Performed By: #### T YS #### [address] [address] Circular Saw Filer: Kan Craig MD Platelet mean volume (Bld) [Entitic vol] 10.8 fL Normal 8.1-13.5 [facility] Comment on above: Performed By: #### T YS #### [facility] [address] [place] [address] Circular Saw Filer: Kan Craig MD Platelets (Bld) [#/Vol] 243 10*3/uL Normal 138-453 [facility] Comment on above: Performed By: #### T YS #### [facility] [address] [place] [address] Circular Saw Filer: Kan Craig MD RBC (Bld) [#/Vol] 4.93 10*6/uL Normal 4.21-5.77 [facility] Comment on above: Performed By: #### T YS #### [facility] [address] [place] [address] Circular Saw Filer: Kan Craig MD WBC (Bld) [#/Vol] 12.2 10*3/uL High 3.5-11.3 [facility] Comment on above: Performed By: #### T YS #### [facility] [address] [place] [address] Circular Saw Filer: Kan Craig MD Glucose,Whole Bloodon 2023 Glucose [Mass/Vol] 151 mg/dL High 75-110 [facility] Glucose [Mass/Vol] 174 mg/dL High 75-110 [facility] Glucose [Mass/Vol] 166 mg/dL High 75-110 [facility] Glucose [Mass/Vol] 139 mg/dL High 75-110 [facility] No Panel Informationon 07-29 Radiology Study observation (narrative) [facility] Poly[employer] POC Glucose Fingerstickon Glucose [Mass/Vol] 151 mg/dL High 75 - 110 mg/dL [facility] Interpretation and review of laboratory results Abnormal [facility] PolyPid Glucose [Mass/Vol] 174 mg/dL High 75 - 110 mg/dL [facility] Interpretation and review of laboratory results Abnormal [facility] Glucose [Mass/Vol] 166 mg/dL High 75 - 110 mg/dL [facility] Interpretation and review of laboratory results Abnormal [facility] Glucose [Mass/Vol] 139 mg/dL High 75 - 110 mg/dL [facility] Interpretation and review of laboratory results Abnormal [facility] Portable XR Chest AP single viewon 07-29-2023 No radiographic evidence of acute cardiopulmonary process. Postop findings. [facility] EXAMINATION: ONE XRAY VIEW OF THE CHEST 07/29/2023 10:57 am COMPARISON: CT chest from 07/27/2023. HISTORY: ORDERING SYSTEM PROVIDED HISTORY: resp eval; postop TECHNOLOGIST PROVIDED HISTORY: resp eval; postop FINDINGS: Overlying ECG monitor leads and neck collar; cervical nina and hardware. Cardiomediastinal shadow unchanged. Lungs/cp angles clear. Probable slight left basilar atelectasis. No consolidation or sizable pleural effusion. Bones unchanged. [facility] Johan Douglas MD - 07/29/2023 EXAMINATION: [...] evidence of acute cardiopulmonary process. Postop findings. [facility] Portable XR Chest AP single viewOrdered By: Johan Douglas on 07-29-2023 [facility] Work Phone: XR CERVICAL SPINE (2-3 VIEWS [...] See Watt MD 07/29/23 Final result Normal [facility] XR CHEST PORTABLEon 07-29-19 XR CHEST PORTABLE [...] Johan Douglas MD 07/29/23 Final result Normal [facility] XR Cervical spine 2 or 3 Vie wson 07-29-2023 Findings consistent with cervicothoracic spinal fusion and postoperative changes as detailed above. Underlying degenerative changes in the cervical spine. [facility] RIS CONSOLIDATED EXAMINATION: 3 XRAY VIEWS OF THE [...] C6-C7. Skin nina along the posterior midline. See Kirby MD - 07/29/2023 EXAMINATION: 3 XRAY VIEWS [...] Underlying degenerative changes in the cervical spine. [facility] reQRdos XR Cervical spine 2 or 3 Vie wsOrdered By: See Watt on 07-29-2023 [facility] Work Phone: Calcium, Ionicon 07-28-2023 Calcium [Moles/Vol] 1.30 mmol/L Normal 1.13-1.33 [facility] Comment on above: Performed By: #### O HP, IOCAL ####[facility] [address] [place], [place] [phone] Lab Director: Kan Craig MD Calcium [Moles/Vol] 1.43 mmol/L High 1.13-1.33 [facility] Comment on above: Performed By: #### O HP, IOCAL, LACTIC ####[facility] [address] [place], [place] [phone] Lab Director: Kan Craig MD Calcium [Moles/Vol] 1.03 mmol/L Low 1.13-1.33 [facility] Comment on above: Performed By: #### I ZACH [facility] ####[id number] [place] [address] Lab Director: Kan Craig MD Calcium, Ionizedon Calcium.ionized (Bld) [Moles/Vol] 1.30 mmol/L 1.13 - 1.33 mmol/L [facility] Calcium.ionized (Bld) [Moles/Vol] 1.43 mmol/L High 1.13 - 1.33 mmol/L [facility] Calcium.ionized (Bld) [Moles/Vol] 1.03 mmol/L Low 1.13 - 1.33 mmol/L [facility] FLUORO FOR SURGICAL PROCEDUR ESon 07-28-2023 FLUORO FOR SURGICAL PROCEDURES Radiology exam is complete. No Radiologist dictation. Please follow up with ordering provider. Final result Normal [facility] FLUORO FOR SURGICAL PROCEDURES Radiology exam is complete. No Radiologist dictation. Please follow up with ordering provider. Final result Normal [facility] Glucose (POC)on 07-28-2023 Glucose [Mass/Vol] 156 mg/dL High 74-100 [facility] Glucose,Whole Bloodon 2023 Glucose [Mass/Vol] 209 mg/dL High 75-110 [facility] Glucose [Mass/Vol] 200 mg/dL High 75-110 [facility] Glucose [Mass/Vol] 195 mg/dL High 75-110 [facility] Guidance-- during surgeryon 07-28-2023 Radiology exam is complete. No Radiologist dictation. Please follow up with ordering provider. [facility] Radiology exam is complete. No Radiologist dictation. Please follow up with ordering provider. [facility] Lactic Acidon 07-28-2023 Lactic Acid, Whole Blood 1.7 mmol/L 0.7 - 2.1 mmol/L [facility] Lactic Acid,Whole Bl 1.7 mmol/L Normal 0.7-2.1 [facility] Comment on above: Performed By: #### O HP, IOCAL, LACTIC ####[facility] [address] [place] [address] lab Director: Kan Craig MD No Panel Informationon 07-28 [facility] Interpretation and review of laboratory results Abnormal [facility] Interpretation and review of laboratory results Abnormal [facility] OPEN HEART PANELon 4 Arterial patency Wrist artery --pre arterial puncture INFORMATION NOT PROVIDED [facility] Carboxyhemoglobin (Bld) [Mass fraction] 1.3 % 0 - 5 % [facility] Comment on above: Reference Range: Non-Smokers 0-2% Average Smoker 2-4% Heavy Smoker <10% Chloride [Moles/Vol] 108 mmol/L 98 - 11 0 mmol/L [facility] Glucose [Mass/Vol] 206 mg/dL High 75 - 110 mg/dL [facility] HCO3 (Bld) [Moles/Vol] 22.1 mmol/L 22 - 27 mmol/L [facility] Hematocrit (Bld) [Volume fraction] 47.0 % 40.7 - 50.3 % [facility] Hemoglobin (Bld) [Mass/Vol] 15.4 g/dL [facility] Interpretation and review of laboratory results Abnormal [facility] Negative Base Excess, Art 2.7 mmol/L High 0.0 - 2.0 mmol/L [facility] Oxygen saturation in Blood 98.7 % 94 - 100 % [facility] Oxygen/Inspired gas Respiratory system --on ventilator 70 [facility] pCO2, Art, Temp Adj 36.5 32 - 45 [facility] pCO2, Arterial 40.[address] [facility] pH, Art, Temp Adj 7.388 7.350 - 7.450 [facility] pH, Arterial 7.359 7.350 - 7.450 [facility] pO2, Art, Temp Adj 295.0 High [facility] pO2, Arterial 305.0 High [facility] Potassium [Moles/Vol] 4.0 mmol/L 3.6 - 5.0 mmol/L [facility] Sodium [Moles/Vol] 137 mmol/L 136 - 145 mmol/L [facility] Arterial patency Wrist artery --pre arterial puncture INFORMATION NOT PROVIDED [facility] Carboxyhemoglobin (Bld) [Mass fraction] 0.2 % 0 - 5 % [facility] Comment on above: Reference Range: Non-Smokers 0-2% Average Smoker 2-4% Heavy Smoker <10% Negative Base Excess, Art 3.3 mmol/L High 0.0 - 2.0 mmol/L [facility] Oxygen/Inspired gas Respiratory system --on ventilator 70% [facility] pCO2, Arterial 44.[address] [facility] pH, Arterial 7.326 Low 7.350 - 7.450 [facility] pO2, Arterial 301.0 High [facility] Arterial patency Wrist artery --pre arterial puncture INFORMATION NOT PROVIDED [facility] Carboxyhemoglobin (Bld) [Mass fraction] 1.1 % 0 - 5 % [facility] Comment on above: Reference Range: Non-Smokers 0-2% Average Smoker 2-4% Heavy Smoker <10% Chloride [Moles/Vol] 116 mmol/L High 98 - 11 0 mmol/L [facility] Glucose [Mass/Vol] 150 mg/dL High 75 - 110 mg/dL [facility] HCO3 (Bld) [Moles/Vol] 19.7 mmol/L Low 22 - 27 mmol/L [facility] Hematocrit (Bld) [Volume fraction] 44.5 % 40.7 - 50.3 % [facility] Hemoglobin (Bld) [Mass/Vol] 14.5 g/dL [facility] Negative Base Excess, Art 5.1 mmol/L High 0.0 - 2.0 mmol/L [facility] Oxygen saturation in Blood 98.6 % 94 - 100 % [facility] Oxygen/Inspired gas Respiratory system --on ventilator 70 [facility] pCO2, Arterial 37.[address] [facility] pH, Arterial 7.338 Low 7.350 - 7.450 [facility] pO2, Arterial 281.0 High [facility] Potassium [Moles/Vol] 2.9 mmol/L Critically low 3.6 - 5.0 mmol/L [facility] Sodium [Moles/Vol] 140 mmol/L 136 - 145 mmol/L [facility] Open Heart Panelon 4 Gabriel Test INFORMATION NOT PROVIDED [facility] Comment on above: Performed By: #### O HP, IOCAL ####[facility] [address] [place] [address] Lab Director: Kan Craig MD Performed By: #### O HP, IOCAL, LACTIC ####[facility] [address] [place], [place] [phone] Director: Kan Craig MD Body Temp. 35.0 Normal [facility] Comment on above: Performed By: #### O HP, IOCAL ####[facility] [address] [place] [address] Lab Director: Kan Craig MD Carboxy Hgb 1.3 % Normal 0-5 [facility] Comment on above: Result Comment: Reference Range: Non-Smokers 0-2% Average Smoker 2-4% Heavy Smoker <10% Performed By: #### O HP, IOCAL ####[facility] [address] [place], [place] [phone] Director: Kan Craig MD Chloride [Moles/Vol] 108 mmol/L Normal 98-110 [facility] Comment on above: Performed By: #### O HP, IOCAL ####[facility] [address] [place], [place] [phone] Director: Kan Craig MD FIO2 70 Normal [facility] Comment on above: Performed By: #### O HP, IOCAL ####[facility] [address] [place] [address] Lab Director: Kan Craig MD Glucose [Mass/Vol] 206 mg/dL High 75-110 [facility] Comment on above: Performed By: #### O HP, IOCAL ####[facility] [address] [place], [place] [phone] Director: Kan Craig MD HCO3 (Bld) [Moles/Vol] 22.1 mmol/L Normal 22-27 [facility] Comment on above: Performed By: #### O HP, IOCAL ####[facility] [address] [place], [place] [phone] Director: Kan Craig MD Hematocrit (Bld) [Volume fraction] 47.0 % Normal 40.7-50.3 [facility] Comment on above: Performed By: #### O HP, IOCAL ####[facility] [address] [place], [place] [phone] Director: Kan Craig MD Hemoglobin (Bld) [Mass/Vol] 15.4 g/dL Normal 13.0-17.0 [facility] Comment on above: Performed By: #### O HP, IOCAL ####[facility] [address] [place], [place] [phone] Director: Kan Craig MD Negative Base Excess 2.7 mmol/L High 0.0-2.0 [facility] Comment on above: Performed By: #### O HP, IOCAL ####[facility] [address] [place], [place] [phone] Director: Kan Craig MD Oxygen (Bld) [Partial pressure] 305.0 mm[Hg] High 75-95 [facility] Comment on above: Performed By: #### O HP, IOCAL ####[facility] [address] [place], [place] [phone] Director: Kan Craig MD Oxygen saturation in Blood 98.7 % Normal 94-100 [facility] Comment on above: Performed By: #### O HP, IOCAL ####[facility] [address] [place], [place] [phone] Director: Kan Craig MD pCO2 40.2 mmHg Normal 32-45 [facility] Comment on above: Performed By: #### O HP, IOCAL ####[facility] [address] [place], [place] [phone] Director: Kan Craig MD pCO2 Adj'd for Temp 36.5 Normal 32-45 [facility] Comment on above: Performed By: #### O HP, IOCAL ####[facility] [address] [place], [place] [phone] Director: Kan Craig MD pH (Bld) 7.359 [pH] Normal 7.350-7.450 [facility] Comment on above: Performed By: #### O HP, IOCAL ####[facility] [address] [place], [place] [phone] Director: Kan Craig MD pH Adjst'd for Temp. 7.388 Normal 7.350-7.450 [facility] Comment on above: Performed By: #### O HP, IOCAL ####[facility] [address] [place], [place] [phone] Director: Kan Craig MD pO2 Adjst'd for Temp 295.0 mmHg High 75-95 [facility] Comment on above: Performed By: #### O HP, IOCAL ####[facility] [address] [place], [place] [phone] Director: Kan Craig MD Potassium [Moles/Vol] 4.0 mmol/L Normal 3.6-5.0 [facility] Comment on above: Performed By: #### O HP, IOCAL ####[facility] [address] [place] [address] Lab Director: Kan Craig MD Sodium [Moles/Vol] 137 mmol/L Normal 136-145 [facility] Comment on above: Performed By: #### O HP, IOCAL ####[facility] [address] [place] [address] Lab Director: Kan Craig MD Chloride [Moles/Vol] 111 mmol/L High 98-110 [facility] Comment on above: Performed By: #### O HP, IOCAL, LACTIC ####[facility] [address] [place] [address] Lab Director: Kan Craig MD Glucose [Mass/Vol] 165 mg/dL High 75-110 [facility] Comment on above: Performed By: #### O HP, IOCAL, LACTIC ####[facility] [address] [place] [address] Lab Director: Kan Craig MD HCO3 (Bld) [Moles/Vol] 22.3 mmol/L Normal 22-[address] [facility] Comment on above: Performed By: #### O HP, IOCAL, LACTIC ####[facility] [address] [place] [address] Lab Director: Kan Craig MD Hematocrit (Bld) [Volume fraction] 47.3 % Normal 40.7-50.3 [facility] Comment on above: Performed By: #### O HP, IOCAL, LACTIC ####[facility] [address] [place] [address] Lab Director: Kan Craig MD Hemoglobin (Bld) [Mass/Vol] 15.4 g/dL Normal 13.0-17.0 [facility] Comment on above: Performed By: #### O HP, IOCAL, LACTIC ####[facility] [address] [place] [address] Lab Director: Kan Craig MD Oxygen saturation in Blood 98.3 % Normal 94-100 [facility] Comment on above: Performed By: #### O HP, IOCAL, LACTIC ####[facility] [address]dyzzdtg[address] [place] [address] Lab Director: Kan Craig MD Potassium [Moles/Vol] 3.6 mmol/L Normal 3.6-5.0 [facility] Comment on above: Performed By: #### O HP, IOCAL, LACTIC ####[facility] [address] [place], [place] [address])[phone] Director: Kan Craig MD Sodium [Moles/Vol] 141 mmol/L Normal 136-145 [facility] Comment on above: Performed By: #### O HP, IOCAL, LACTIC ####[facility] [address] [place], [place] [address])[phone] Director: Kan Craig MD Carboxy Hgb 0.2 % Normal 0-5 [facility] Comment on above: Result Comment: Reference Range: Non-Smokers 0-2% Average Smoker 2-4% Heavy Smoker <10% Performed By: #### O HP, IOCAL, LACTIC ####[facility] Euesgqtjpgde3646 [place], [place] [address])[phone] Director: Kan Craig MD FIO2 70% Normal [facility] Comment on above: Performed By: #### O HP, IOCAL, LACTIC ####[facility] [address] [place] [address] Lab Director: Kan Craig MD Negative Base Excess 3.3 mmol/L High 0.0-2.0 [facility] Comment on above: Performed By: #### O HP, IOCAL, LACTIC ####[facility] [address]ty[address]cm[address] [place] [address] Lab Director: Kan Craig MD Oxygen (Bld) [Partial pressure] 301.0 mm[Hg] High 75-95 [facility] Comment on above: Performed By: #### O HP, IOCAL, LACTIC ####[facility] [address] [place], [place] [phone] Director: Kan Craig MD pCO2 44.0 mmHg Normal 32-45 [facility] Comment on above: Performed By: #### O HP, IOCAL, LACTIC ####[facility] [address]fjurfyhfync5096 [place] [address] Lab Director: Kan Craig MD pH (Bld) 7.326 [pH] Low 7.350-7.450 [facility] Comment on above: Performed By: #### O HP, IOCAL, LACTIC ####[facility] [address]ujtd[address] [place] [address] Lab Director: Kan Craig MD Gabriel Test INFORMATION NOT PROVIDED Normal [facility] Comment on above: Performed By: #### I OCAL, OHP #### [facility] [address] [place] [address] Circular Saw Filer: Kan Craig MD Body Temp. 37.0 Normal [facility] Comment on above: Performed By: #### O HP, IOCAL, LACTIC ####[facility] [address]xxxzfnmyue[address] [place] [address] Lab Director: Kan Craig MD Performed By: #### I OCAL, OHP #### [facility] [address] [place] [address] Circular Saw Filer: Kan Craig MD Carboxy Hgb 1.1 % Normal 0-5 [facility] Comment on above: Result Comment: Reference Range: Non-Smokers 0-2% Average Smoker 2-4% Heavy Smoker <10% Performed By: #### I OCAL, OHP #### [facility] [address] [place] [address] Circular Saw Filer: Kan Craig MD Chloride [Moles/Vol] 116 mmol/L High 98-110 [facility] Comment on above: Performed By: #### I OCAL, OHP #### [facility] [address] [place] [address] Circular Saw Filer: Kan Craig MD FIO2 70 Normal [facility] Comment on above: Performed By: #### I OCAL, OHP #### [facility] [address] [place] [address] Circular Saw Filer: Kan Craig MD Glucose [Mass/Vol] 150 mg/dL High 75-110 [facility] Comment on above: Performed By: #### I OCAL, OHP #### [facility] [address] [place] [address] Circular Saw Filer: Kan Craig MD HCO3 (Bld) [Moles/Vol] 19.7 mmol/L Low 22-27 [facility] Comment on above: Performed By: #### I OCAL, OHP #### [address] [address] Circular Saw Filer: Kan Craig MD Hematocrit (Bld) [Volume fraction] 44.5 % Normal 40.7-50.3 [facility] Comment on above: Performed By: #### I OCAL, OHP #### [facility] [address] [place] [address] Circular Saw Filer: Kan Craig MD Hemoglobin (Bld) [Mass/Vol] 14.5 g/dL Normal 13.0-17.0 [facility] Comment on above: Performed By: #### I OCAL, OHP #### [facility] [address] [place] [address] Circular Saw Filer: Kan Craig MD Negative Base Excess 5.1 mmol/L High 0.0-2.0 [facility] Comment on above: Performed By: #### I OCAL, OHP #### [facility] [address] [place] [address] Circular Saw Filer: Kan Craig MD Oxygen (Bld) [Partial pressure] 281.0 mm[Hg] High 75-95 [facility] Comment on above: Performed By: #### I OCAL, OHP #### [facility] [address] [place] [address] Circular Saw Filer: Kan Craig MD Oxygen saturation in Blood 98.6 % Normal 94-100 [facility] Comment on above: Performed By: #### I OCAL, OHP #### [facility] [address] [place] [address] Circular Saw Filer: Kan Craig MD pCO2 37.6 mmHg Normal 32-45 [facility] Comment on above: Performed By: #### I OCAL, OHP #### [facility] [address] [place] [address] Circular Saw Filer: Kan Craig MD pH (Bld) 7.338 [pH] Low 7.350-7.450 [facility] Comment on above: Performed By: #### I OCBLADIMIR, OHP #### [facility] [address] [place] [address] Circular Saw Filer: Kan Craig MD Potassium [Moles/Vol] 2.9 mmol/L Critically low 3.6-5.0 [facility] Comment on above: Performed By: #### I OCBLADIMIR, OHP #### [facility] [address] [place] [address] Circular Saw Filer: Kan Craig MD Sodium [Moles/Vol] 140 mmol/L Normal 136-145 [facility] Comment on above: Performed By: #### I OCAL, OHP #### [facility] [address] [place] [address] Circular Saw Filer: Kan Craig MD POC Glucose Fingerstickon Glucose [Mass/Vol] 209 mg/dL High 75 - 110 mg/dL [facility] Interpretation and review of laboratory results Abnormal [facility] Glucose [Mass/Vol] 200 mg/dL High 75 - 110 mg/dL [facility] Interpretation and review of laboratory results Abnormal [facility] Glucose [Mass/Vol] 195 mg/dL High 75 - 110 mg/dL [facility] Interpretation and review of laboratory results Abnormal [facility] POCT Glucoseon 07-28-2023 Glucose [Mass/Vol] 156 mg/dL High 74 - 100 mg/dL [facility] Interpretation and review of laboratory results Abnormal [facility] POTASSIUM (POC)on 07-28-2023 Potassium [Moles/Vol] 3.9 mmol/L 3.5 - 4.5 mmol/L [facility] Potassium (POC)on 07-28-2023 Potassium [Moles/Vol] 3.9 mmol/L Normal 3.5-4.5 [facility] CT CHEST WO CONTRASTon 07-27 CT [...] HISTORY: Stenosis of cervical spine with myelopathy ([facility]) TECHNOLOGIST PROVIDED HISTORY: please include SAGITTAL [...] Noel IV, MD 07/27/23 Final result Normal [facility] APTTon 07-10-2023 aPTT Coag (Bld) [Time] 28.5 s Normal 23.0-36.5 [facility] Comment on above: Result Comment: IV Heparin Therapy Range: 66.0-92.0 sec Performed By: #### B MP, PT, PTT, CDP ####[facility] [address] [place] [address] [phone] Director: Kan Craig MD Basic Metabolic Profon 07-10 Anion gap [Moles/Vol] 13 mmol/L Normal 9-16 [facility] Comment on above: Performed By: #### B MP, PT, PTT, CDP ####[facility] [address] [place] [address] [phone])[phone] Director: Kan Craig MD Calcium [Mass/Vol] 9.4 mg/dL Normal 8.6-10.4 [facility] Comment on above: Performed By: #### B MP, PT, PTT, CDP ####[facility] [address] [place] [address] [phone])[phone] Director: Kan Craig MD Chloride [Moles/Vol] 102 mmol/L Normal 98-107 [facility] Comment on above: Performed By: #### B MP, PT, PTT, CDP ####[facility] [address] [place] [address] Lab Director: Kan Craig MD CO2 [Moles/Vol] 24 mmol/L Normal 20-31 [facility] Comment on above: Performed By: #### B MP, PT, PTT, CDP ####[facility] [address] [place] [address] Lab Director: Kan Craig MD Creatinine [Mass/Vol] 1.0 mg/dL Normal 0.70-1.20 [facility] Comment on above: Performed By: #### B MP, PT, PTT, CDP ####[address] [address])[phone] Director: Kan Craig MD GFR/1.73 sq M.predicted among non-blacks MDRD (S/P/Bld) [Vol rate/Area] mL/min/{1.73_m2} Normal >60 [facility] Comment on above: Result Comment: These results [...] By: #### B MP, PT, PTT, CDP ####[facility] [address] [place] [address] Lab Director: Kan Craig MD Glucose [Mass/Vol] 114 mg/dL High 74-99 [facility] Comment on above: Performed By: #### B MP, PT, PTT, CDP ####[facility] [address]hl[address] [place] [address] Lab Director: Kan Craig MD Potassium [Moles/Vol] 4.2 mmol/L Normal 3.7-5.3 [facility] Comment on above: Performed By: #### B MP, PT, PTT, CDP ####[facility] [address] [place], [place] [address])[phone] Director: Kan Craig MD Sodium [Moles/Vol] 139 mmol/L Normal 136-145 [facility] Comment on above: Performed By: #### B MP, PT, PTT, CDP ####[facility] [address] [place], [place] [address])[phone] Director: Kan Craig MD Urea nitrogen [Mass/Vol] 21 mg/dL Normal 8-23 [facility] Comment on above: Performed By: #### B MP, PT, PTT, CDP ####[facility] [address] [place], [place] [address])[phone] Director: Kan Craig MD CBC with Diffon 07-10-2023 Abs. Basophil 0.11 k/uL Normal 0.00-0.20 [facility] Comment on above: Performed By: #### B MP, PT, PTT, CDP ####[facility] [address] [place] [address])[phone] Director: Kan Craig MD Abs.Imm.Granulocyte 0.05 k/uL Normal 0.00-0.30 [facility] Comment on above: Performed By: #### B MP, PT, PTT, CDP ####[facility] [address] [place] [address])[phone] Director: Kan Craig MD Abs.Neutrophil (Seg) 3.72 k/uL Normal 1.50-8.10 [facility] Comment on above: Performed By: #### B MP, PT, PTT, CDP ####[facility] [address]acc[address] [place], [place] [address])[phone] Director: Kan Craig MD Basophils/100 WBC (Bld) 2 % Normal 0-2 [facility] Comment on above: Performed By: #### B MP, PT, PTT, CDP ####[address] [phone] Director: Kan Craig MD Eosinophils (Bld) [#/Vol] 0.16 10*3/uL Normal 0.00-0.44 [facility] Comment on above: Performed By: #### B MP, PT, PTT, CDP ####[address] [address])[phone] Director: Kan Craig MD Eosinophils/100 WBC (Bld) 3 % Normal 1-4 [facility] Comment on above: Performed By: #### B MP, PT, PTT, CDP ####[place], [place] [address])[phone] Director: Kan Craig MD Erythrocyte distribution width (RBC) [Ratio] 12.1 % Normal 11.8-14.4 [facility] Comment on above: Performed By: #### B MP, PT, PTT, CDP ####[place], [place] [address])[phone] Director: Kan Craig MD Hematocrit (Bld) [Volume fraction] 49.3 % Normal 40.7-50.3 [facility] Comment on above: Performed By: #### B MP, PT, PTT, CDP ####[place], [place] [address])[phone] Director: Kan Craig MD Hemoglobin (Bld) [Mass/Vol] 16.3 g/dL Normal 13.0-17.0 [facility] Comment on above: Performed By: #### B MP, PT, PTT, CDP ####[address] [address])[phone] Director: Kan Craig MD Immature granulocytes/100 WBC (Bld) 1 % High 0 [facility] Comment on above: Performed By: #### B MP, PT, PTT, CDP ####[facility] [address] [place] [address] [phone])[phone] Director: Kan Craig MD Lymphocytes (Bld) [#/Vol] 1.83 10*3/uL Normal 1.10-3.70 [facility] Comment on above: Performed By: #### B MP, PT, PTT, CDP ####[place], [place] [address])[phone] Director: Kan Craig MD Lymphocytes/100 WBC (Bld) 29 % Normal 24-43 [facility] Comment on above: Performed By: #### B MP, PT, PTT, CDP ####[place], [place] [address])[phone] Director: Kan Craig MD MCH (RBC) [Entitic mass] 31.7 pg Normal 25.2-33.5 [facility] Comment on above: Performed By: #### B MP, PT, PTT, CDP ####[address] [address])[phone] Director: Kan Craig MD MCHC (RBC) [Mass/Vol] 33.1 g/dL Normal 28.4-34.8 [facility] Comment on above: Performed By: #### B MP, PT, PTT, CDP ####[place], [place] [address])[phone] Director: Kan Craig MD MCV (RBC) [Entitic vol] 95.7 fL Normal 82.6-102.9 [facility] Comment on above: Performed By: #### B MP, PT, PTT, CDP ####[address] [phone] Director: Kan Craig MD Monocytes (Bld) [#/Vol] 0.41 10*3/uL Normal 0.10-1.20 [facility] Comment on above: Performed By: #### B MP, PT, PTT, CDP ####[facility] [address] [place], [place] [phone])[phone] Director: Kan Craig MD Monocytes/100 WBC (Bld) 7 % Normal 3-12 [facility] Comment on above: Performed By: #### B MP, PT, PTT, CDP ####[address] [phone] Director: Kan Craig MD Neutrophil (Seg) 58 % Normal 36-65 [facility] Comment on above: Performed By: #### B MP, PT, PTT, CDP ####[address] [phone])[phone] Director: Kan Craig MD NRBC Automated 0.0 per 100 WBC Normal 0.0 [facility] Comment on above: Performed By: #### B MP, PT, PTT, CDP ####[facility] [address] [place] [address] [phone] Director: Kan Craig MD Platelet mean volume (Bld) [Entitic vol] 10.5 fL Normal 8.1-13.5 [facility] Comment on above: Performed By: #### B MP, PT, PTT, CDP ####[address] [phone])[phone] Director: Kan Craig MD Platelets (Bld) [#/Vol] 225 10*3/uL Normal 138-453 [facility] Comment on above: Performed By: #### B MP, PT, PTT, CDP ####[facility] [address] [place], [place] [id number])[phone] Director: Kan Craig MD RBC (Bld) [#/Vol] 5.15 10*6/uL Normal 4.21-5.77 [facility] Comment on above: Performed By: #### B MP, PT, PTT, CDP ####[facility] [address] [place] [address] Lab Director: Kan Craig MD WBC (Bld) [#/Vol] 6.3 10*3/uL Normal 3.5-11.3 [facility] Comment on above: Performed By: #### B MP, PT, PTT, CDP ####[facility] [address] [place], [place] [phone])[phone] Director: Kan Craig MD PTon 07-10-2023 INR Coag (PPP) [Relative time] 1.0 {INR} Normal [facility] Comment on above: Result Comment: Therapeutic Range: Moderate Anticoagulant Intensity: INR = 2.0-3.0 High Anticoagulant Intensity: INR = 2.5-3.5 Performed By: #### B MP, PT, PTT, CDP ####[facility] [address] [place] [address] Lab Director: Kan Craig MD PT Coag (PPP) [Time] 12.7 s Normal 11.7-14.9 [facility] Comment on above: Performed By: #### B MP, PT, PTT, CDP ####[facility] [address] [place] [address] [phone] Director: Kan Craig MD Type + Screenon 07-10-2023 Type + Screen Sample Expiration 07/31/2023,2359 Arm Band Number BE [id number] ABO/Rh(D) B POSITIVE Antibody Screen NEGATIVE Normal [facility] Comment on above: Performed By: #### T YS #### [facility] [address] [place] [address] Circular Saw Filer: Kan Craig MD Performed By: #### T YS ####[place] [address] [place], [place] [phone] Director: Kan Craig MD Urinalysis, Routineon 2023 Bilirubin, SemiQt,Ur Negative Normal NEG [facility] Comment on above: Performed By: #### U A #### [address] [address] Circular Saw Filer: Kan Craig MD Blood, Urine Negative Normal NEG [facility] Comment on above: Performed By: #### U A #### [address] [address] Circular Saw Filer: Kan Craig MD Clarity (U) Clear Normal CLEAR [facility] Comment on above: Performed By: #### U A #### [address] [address] Circular Saw Filer: Kan Craig MD Color (U) Yellow Normal YEL [facility] Comment on above: Performed By: #### U A #### [address] [address] Circular Saw Filer: Kan Craig MD Comment Microscopic exam not performed based on chemical results unless requested in Normal [facility] Comment on above: Result Comment: orig inal order. Performed By: #### U A #### [address] [address] Circular Saw Filer: Kan Craig MD Glucose Ql (U) 3+ mg/dL Abnormal NEG [facility] Comment on above: Performed By: #### U A #### [address] [address] Circular Saw Filer: Kan Craig MD Ketones Ql (U) Negative Normal NEG [facility] Comment on above: Performed By: #### U A #### [address] [address] Circular Saw Filer: Kan Craig MD Leukocyte esterase Test strip Ql (U) Negative Normal NEG [facility] Comment on above: Performed By: #### U A #### [address] [address] Circular Saw Filer: Kan Craig MD Nitrite,Ur Negative Normal NEG [facility] Comment on above: Performed By: #### U A #### [address] [address] Circular Saw Filer: Kan Craig MD PH,Ur 5.0 Normal 5.0-8.0 [facility] Comment on above: Performed By: #### U A #### [address] [address] Circular Saw Filer: Kan Craig MD Protein Ql (U) Negative Normal NEG [facility] Comment on above: Performed By: #### U A #### [address] [address] Circular Saw Filer: Kan Craig MD Spec. [place],Ur 1.029 Normal 1.005-1.030 [facility] Comment on above: Performed By: #### U A #### [address] [address] Circular Saw Filer: Kan Craig MD Urobilinogen,Ur Normal Normal 0.0-1.0 [facility] Comment on above: Performed By: #### U A #### [address] [address] Circular Saw Filer: Kan Craig MD CT CERVICAL SPINE WO [...] Johan Bowers MD 06/07/23 Final result Normal [facility] Basic Metabolic Profon 05-19 Anion gap [Moles/Vol] 13 mmol/L Normal 9-17 [facility] Comment on above: Performed By: #### C BC, BMP #### [facility] [address] [place] [address] Circular Saw Filer: Julio Martínez MD #### GLYHGB #### [address] [phone] Circular Saw Filer: Kan Craig MD BUN/CRE Ratio 27 High 9-20 [facility] Comment on above: Performed By: #### C BC, BMP #### [facility] [address] [place] [address] Circular Saw Filer: Julio Martínez MD #### GLYHGB #### [address] [phone] Circular Saw Filer: Kan Craig MD Calcium [Mass/Vol] 9.7 mg/dL Normal 8.6-10.4 [facility] Comment on above: Performed By: #### C BC, BMP #### [facility] [address] [place] [address] Circular Saw Filer: Julio Martínez MD #### GLYHGB #### [address] [address] Circular Saw Filer: Kan Craig MD Chloride [Moles/Vol] 103 mmol/L Normal 98-107 [facility] Comment on above: Performed By: #### C BC, BMP #### [facility] [address] [place] [address] Circular Saw Filer: Julio Martínez MD #### GLYHGB #### [address] [phone] Circular Saw Filer: Kan Craig MD CO2 [Moles/Vol] 24 mmol/L Normal 20-31 [facility] Comment on above: Performed By: #### C BC, BMP #### [facility] [address] [place] [address] Circular Saw Filer: Julio Martínez MD #### GLYHGB #### [address] [address] Circular Saw Filer: Kan Craig MD Creatinine [Mass/Vol] 1.0 mg/dL Normal 0.7-1.2 [facility] Comment on above: Performed By: #### C BC, BMP #### [facility] [address] [place] [address] Circular Saw Filer: Julio Martínez MD #### GLYHGB #### [address] [address] Circular Saw Filer: Kan Craig MD GFR/1.73 sq M.predicted among non-blacks MDRD (S/P/Bld) [Vol rate/Area] mL/min/{1.73_m2} Normal >60 [facility] Comment on above: Result Comment: These [...] Performed By: #### C BC, BMP #### [facility] [address] [place] [address] Circular Saw Filer: Julio Martínez MD #### GLYHGB #### [address] [phone] Circular Saw Filer: Kan Craig MD Glucose [Mass/Vol] 169 mg/dL High 70-99 [facility] Comment on above: Performed By: #### C TRAVIS, BMP #### [facility] [address] [place] [address] Circular Saw Filer: Julio Martínez MD #### GLYHGB #### [address] [phone] Circular Saw Filer: Kan Craig MD Potassium [Moles/Vol] 4.1 mmol/L Normal 3.7-5.3 [facility] Comment on above: Performed By: #### C TRAVIS, BMP #### [facility] [address] [place] [address] Circular Saw Filer: Julio Martínez MD #### GLYHGB #### [address] [address] Circular Saw Filer: Kan Craig MD Sodium [Moles/Vol] 140 mmol/L Normal 135-144 [facility] Comment on above: Performed By: #### C BC, BMP #### [facility] [place] [address] Circular Saw Filer: Julio Martínez MD #### GLYHGB #### [address] [address] Circular Saw Filer: Kan Craig MD Urea nitrogen [Mass/Vol] 27 mg/dL High 8-23 [facility] Comment on above: Performed By: #### C BC, BMP #### [facility] [address] [place] [address] Circular Saw Filer: Julio Martínez MD #### GLYHGB #### [address] [address] Circular Saw Filer: Kan Craig MD CBCon 05-19-2023 Erythrocyte distribution width (RBC) [Ratio] 13.6 % Normal 11.8-14.4 [facility] Comment on above: Performed By: #### C TRAVIS, BMP #### [facility] [address] [place] [address] Circular Saw Filer: Julio Martínez MD #### GLYHGB #### [address] [address] Circular Saw Filer: Kan Craig MD Hematocrit (Bld) [Volume fraction] 46.6 % Normal 40.7-50.3 [facility] Comment on above: Performed By: #### C TRAVIS, BMP #### [facility] [address] [place] [address] Circular Saw Filer: Julio Martínez MD #### GLYHGB #### [address] [address] Circular Saw Filer: Kan Craig MD Hemoglobin (Bld) [Mass/Vol] 15.6 g/dL Normal 13.0-17.0 [facility] Comment on above: Performed By: #### C BC, BMP #### [facility] [address] [place] [address] Circular Saw Filer: Julio Martínez MD #### GLYHGB #### [address] [address] Circular Saw Filer: Kan Craig MD MCH (RBC) [Entitic mass] 31.9 pg Normal 25.2-33.5 [facility] Comment on above: Performed By: #### C TRAVIS, BMP #### [facility] [address] [place] [address] Circular Saw Filer: Julio Martínez MD #### GLYHGB #### [address] [address] Circular Saw Filer: Kan Craig MD MCHC (RBC) [Mass/Vol] 33.5 g/dL Normal 28.4-34.8 [facility] Comment on above: Performed By: #### C TRAVIS, BMP #### [facility] [address] [place] [address] Circular Saw Filer: Julio Martínez MD #### GLYHGB #### [address] [address] Circular Saw Filer: Kan Craig MD MCV (RBC) [Entitic vol] 95.3 fL Normal 82.6-102.9 [facility] Comment on above: Performed By: #### C BC, BMP #### [facility] [address] [place] [address] Circular Saw Filer: Julio Martínez MD #### GLYHGB #### [address] [address] Circular Saw Filer: Kan Craig MD NRBC Automated 0.0 per 100 WBC Normal 0.0 [facility] Comment on above: Performed By: #### C BC, BMP #### [facility] [place] [address] Circular Saw Filer: Julio Martínez MD #### GLYHGB #### [address] [address] Circular Saw Filer: Kan Craig MD Platelet mean volume (Bld) [Entitic vol] 10.7 fL Normal 8.1-13.5 [facility] Comment on above: Performed By: #### C BC, BMP #### [facility] [address] [place] [address] Circular Saw Filer: Julio Martínez MD #### GLYHGB #### [address] [address] Circular Saw Filer: Kan Craig MD Platelets (Bld) [#/Vol] 255 10*3/uL Normal 138-453 [facility] Comment on above: Performed By: #### C BC, BMP #### [facility] [address] [place] [address] Circular Saw Filer: Julio Martínez MD #### GLYHGB #### [address] [address] Circular Saw Filer: Kan Craig MD RBC (Bld) [#/Vol] 4.89 10*6/uL Normal 4.21-5.77 [facility] Comment on above: Performed By: #### C BC, BMP #### [facility] [address] [place] [address] Circular Saw Filer: Julio Martínez MD #### GLYHGB #### [facility] [address] [place] [address] Circular Saw Filer: Kan Craig MD WBC (Bld) [#/Vol] 6.3 10*3/uL Normal 3.5-11.3 [facility] Comment on above: Performed By: #### C BC, BMP #### [facility] [address] [place] [address] Circular Saw Filer: Julio Martínez MD #### GLYHGB #### [address] [address] Circular Saw Filer: Kan Craig MD Hemoglobin A1Con 05-19-2023 Glucose [Mass/Vol] 151 mg/dL Normal [facility] Comment on above: Result Comment: The ADA and AACC recommend providing the estimated average glucose result to permit better patient understanding of their HBA1c result. Performed By: #### C TRAVIS, BMP #### [facility] [address] [place] [address] Circular Saw Filer: Julio Martínez MD #### GLYHGB #### [address] [address] Circular Saw Filer: Kan Craig MD HbA1c (Bld) [Mass fraction] 6.9 % High 4.0-6.0 [facility] Comment on above: Performed By: #### C BC, BMP #### [facility] [address] [place] [address] Circular Saw Filer: Julio Martínez MD #### GLYHGB #### [address] [address] Circular Saw Filer: Kan Craig MD MRI CERVICAL SPINE WO [...] Tonja Malone MD 05/17/23 Final result Normal [facility] POINT OF CARE GLUCOSEon 05- Glucose [Mass/Vol] 159 mg/dL Critically high 74-106 [facility] Comment on above: Performed By: #### P OCGLUC #### [facility] [address] [address] [address] Cristal Goodwin POINT OF CARE GLUCOSEon 09-10 Glucose [Mass/Vol] 182 mg/dL Critically high 74-106 [facility] Comment on above: Performed By: #### P OCGLUC #### [facility] [address] [address] [address] Cristal Goodwin XR CSPINE 2_3 VIEWSon [...] by: WILL SOARES Date: 2022-09-15 10:31 Normal [facility] XR TSPINE 2 VIEWSon 09-16-19 XR TSPINE 2 VIEWS EXAMINATION: XR TSPINE [...] by: WILL SOARES Date: 2022-09-15 10:29 Normal [facility] POINT OF CARE GLUCOSEon 08-11 Glucose [Mass/Vol] 120 mg/dL Critically high 74-106 T he [facility] Comment on above: Performed By: #### P OCGLUC #### [facility] [address] [address] [address] Cristal Goodwin XR LSPINE MIN 4 VIEWSon 03 XR LSPINE MIN 4 VIEWS EXAMINATION: XR [...] by: GUILLERMO AMADOR Date: 2022-08-10 07:23 Normal [facility] CT LUNG CANCER SCREENINGon 0 08-03-2022 CT [...] by: WILL SOARES Date: 2022-08-03 15:51 Normal [facility] BASIC METABOLIC PANELon 07-2 BUN/CREATININE RATIO NOT APPLICABLE Normal - [facility] Comment on above: Order Comment: FASTI NG:YES FASTING: YES Performed By: #### 4 96, [id number] #### [facility] [place] [address] Internet Specialist: Gelacio Alonso MD Calcium [Mass/Vol] 9.1 mg/dL Normal 8.6-10.3 [facility] Comment on above: Order Comment: FASTI NG:YES FASTING: YES Performed By: #### 4 96, 32577 #### [facility] [place] [address] Internet Specialist: Gelacio Alonso MD Chloride [Moles/Vol] 106 mmol/L Normal 98-110 [facility] Comment on above: Order Comment: FASTI NG:YES FASTING: YES Performed By: #### 4 96, 56106 #### [facility] [place] [address] Internet Specialist: Gelacio Alonso MD CO2 [Moles/Vol] 26 mmol/L Normal 20-32 [facility] Comment on above: Order Comment: FASTI NG:YES FASTING: YES Performed By: #### 4 96, 76729 #### [facility] [place] [address] Internet Specialist: Gelacio Alonso MD Creatinine [Mass/Vol] 0.93 mg/dL Normal 0.70-1.[address] [facility] Comment on above: Order Comment: FASTI NG:YES FASTING: YES Performed By: #### 4 96, 74040 #### [facility] [place] [address] Internet Specialist: Gelacio Alonso MD GFR/1.73 sq M.predicted among non-blacks MDRD (S/P/Bld) [Vol rate/Area] 93 mL/min/{1.73_m2} Normal > OR = 60 [facility] Comment on above: Order Comment: FASTI NG:YES FASTING: YES Result Comment: The eGFR is based on the CKD-EPI 2020 equation. To calculate the new eGFR from a previous Creatinine or Cystatin C result, go to https://www.kidney.org/professionals/ kdoqi/gfr%5Fcalculator Performed By: #### 4 96, 40622 #### [facility] [address], [address] [place] [address] Internet Specialist: Gelacio Alonso MD Glucose [Mass/Vol] 136 mg/dL High 65-99 [facility] Comment on above: Order Comment: FASTI NG:YES FASTING: YES Result Comment: Fasting reference interval For someone without known diabetes, a glucose value >125 mg/dL indicates that they may have diabetes and this should be confirmed with a follow-up test. Performed By: #### 4 96, 74502 #### [facility] [address], [address] [place] [address] Internet Specialist: Gelacio Alonso MD Potassium [Moles/Vol] 4.3 mmol/L Normal 3.5-5.[address] [facility] Comment on above: Order Comment: FASTI NG:YES FASTING: YES Performed By: #### 4 96, 62609 #### [facility] [address], [address] [place] [address] Internet Specialist: Gelacio Alonso MD Sodium [Moles/Vol] 140 mmol/L Normal 135-146 [facility] Comment on above: Order Comment: FASTI NG:YES FASTING: YES Performed By: #### 4 96, 77830 #### [facility] [address], [address] [place] [address] Internet Specialist: Gelacio Alonso MD Urea nitrogen [Mass/Vol] 16 mg/dL Normal 7-25 [facility] Comment on above: Order Comment: FASTI NG:YES FASTING: YES Performed By: #### 4 96, 81967 #### [facility] [address], [address] [place] [address] Internet Specialist: Gelacio Alonso MD HEMOGLOBIN A1con 12-30-2021 HEMOGLOBIN A1c 6.0 % of total Hgb High <5.7 [facility] Comment on above: Result Comment: [...] for children. Performed By: #### 4 96, 26346 #### [facility] [address], [address] [place] [address] Internet Specialist: Gelacio Alonso MD BASIC METABOLIC PANEL 12- BUN/CREATININE RATIO NOT APPLICABLE Normal 6-22 [facility] Comment on above: Order Comment: FASTI NG:YES FASTING: YES Performed By: #### 1 0165 #### [facility] [address], [address] [place] [address] Internet Specialist: Gelacio Alonso MD Calcium [Mass/Vol] 9.3 mg/dL Normal 8.6-10.3 [facility] Comment on above: Order Comment: FASTI NG:YES FASTING: YES Performed By: #### 1 0165 #### [facility] [place] [address] Internet Specialist: Gelacio Alonso MD Chloride [Moles/Vol] 109 mmol/L Normal 98-110 [facility] Comment on above: Order Comment: FASTI NG:YES FASTING: YES Performed By: #### 1 0165 #### [facility] [place] [address] Internet Specialist: Gelacio Alonso MD CO2 [Moles/Vol] 26 mmol/L Normal 20-32 [facility] Comment on above: Order Comment: FASTI NG:YES FASTING: YES Performed By: #### 1 0165 #### [facility] [place] [address] Internet Specialist: Gelacio Alonso MD Creatinine [Mass/Vol] 0.93 mg/dL Normal 0.70-1.[address] [facility] Comment on above: Order Comment: FASTI NG:YES FASTING: YES Result Comment: For patients >49 years of age, the reference limit for Creatinine is approximately 13% higher for people identified as -Chadian. Performed By: #### 1 0165 #### [facility] [address], [address] [place] [address] Internet Specialist: Gelacio Alonso MD eGFR NON-AFR. WELSH 88 mL/min/1.73m2 Normal > OR = 60 [facility] Comment on above: Order Comment: FASTI NG:YES FASTING: YES Performed By: #### 1 0165 #### [facility] [address], [address] [place] [address] Internet Specialist: Gelacio Alonso MD GFR/1.73 sq M.predicted among blacks MDRD (S/P/Bld) [Vol rate/Area] 102 mL/min/{1.73_m2} Normal > OR = 60 [facility] Comment on above: Order Comment: FASTI NG:YES FASTING: YES Performed By: #### 1 0165 #### [facility] [address], [address] [place] [address] Internet Specialist: Gelacio Alonso MD Glucose [Mass/Vol] 122 mg/dL High 65-99 [facility] Comment on above: Order Comment: FASTI NG:YES FASTING: YES Result Comment: Fasting reference interval For someone without known diabetes, a glucose value between 100 and 125 mg/dL is consistent with prediabetes and should be confirmed with a follow-up test. Performed By: #### 1 0165 #### [facility] [address], [address] [place] [address] Internet Specialist: Gelacio Alonso MD Potassium [Moles/Vol] 4.5 mmol/L Normal 3.5-5.[address] [facility] Comment on above: Order Comment: FASTI NG:YES FASTING: YES Performed By: #### 1 0165 #### [facility] [place] [address] Internet Specialist: Gelacio Alonso MD Sodium [Moles/Vol] 141 mmol/L Normal 135-146 [facility] Comment on above: Order Comment: FASTI NG:YES FASTING: YES Performed By: #### 1 0165 #### [facility] of [address], [address] [place] [address] Internet Specialist: Gelacio Alonso MD Urea nitrogen [Mass/Vol] 24 mg/dL Normal 7-25 [facility] Comment on above: Order Comment: FASTI NG:YES FASTING: YES Performed By: #### 1 0165 #### [facility] of [address], [address] [place] [address] Internet Specialist: Gelacio Alonso MD [facility] 02-04-2021 Albumin [Mass/Vol] 4.3 g/dL Normal 3.6-5.1 [facility] Comment on above: Performed By: #### 1 0231, 7600, 5363 #### [facility] [place] [address] Internet Specialist: Gelacio Alonso MD Albumin/Globulin [Mass ratio] 1.7 {ratio} Normal 1.0-2.5 [facility] Comment on above: Performed By: #### 1 0231, 7600, 5363 #### [facility] of [place] [address] Internet Specialist: Gelacio Alonso MD ALP [Catalytic activity/Vol] 54 U/L Normal 35-144 [facility] Comment on above: Performed By: #### 1 0231, 7600, 5363 #### [facility] of [place] [address] Internet Specialist: Gelacio Alonso MD ALT [Catalytic activity/Vol] 19 U/L Normal 9-46 [facility] Comment on above: Performed By: #### 1 0231, 7600, 5363 #### [facility] of [address] [address] Internet Specialist: Gelacio Alonso MD AST [Catalytic activity/Vol] 19 U/L Normal 10-35 [facility] Comment on above: Performed By: #### 1 0231, 7600, 5363 #### [facility] of [address], [address] [place] [address] Internet Specialist: Gelacio Alonso MD Bilirubin [Mass/Vol] 0.6 mg/dL Normal 0.2-1.2 [facility] Comment on above: Performed By: #### 1 0231, 7600, 5363 #### [facility] [address], [address] [place] [address] Internet Specialist: Gelacio Alonso MD BUN/CREATININE RATIO NOT APPLICABLE Normal 6-22 [facility] Comment on above: Performed By: #### 1 023, 0, 5363 #### [facility] [address] [place] [address] Internet Specialist: Gelacio Alonso MD Calcium [Mass/Vol] 9.2 mg/dL Normal 8.6-10.3 [facility] Comment on above: Performed By: #### 1 023, 7599, 5363 #### [facility] [address] [address] Internet Specialist: Gelacio Alonso MD Chloride [Moles/Vol] 106 mmol/L Normal 98-110 [facility] Comment on above: Performed By: #### 1 023, 7599, 5363 #### [facility] [place] [address] Internet Specialist: Gelacio Alonso MD CO2 [Moles/Vol] 28 mmol/L Normal 20-32 [facility] Comment on above: Performed By: #### 1 023, 7599, 5363 #### [facility] [place] [address] Internet Specialist: Gelacio Alonso MD Creatinine [Mass/Vol] 0.93 mg/dL Normal 0.70-1.[address] [facility] Comment on above: Result Comment: For patients >49 years of age, the reference limit for Creatinine is approximately 13% higher for people identified as -Chadian. Performed By: #### 1 023, 7599, 5363 #### [facility] [address], [address] [place] [address] Internet Specialist: Gelacio Alonso MD eGFR NON-AFR. WELSH 88 mL/min/1.73m2 Normal > OR = 60 [facility] Comment on above: Performed By: #### 1 023, 7599, 5363 #### [facility] of [address], [address] [place] [address] Internet Specialist: Gelacio Alonso MD GFR/1.73 sq M.predicted among blacks MDRD (S/P/Bld) [Vol rate/Area] 102 mL/min/{1.73_m2} Normal > OR = 60 [facility] Comment on above: Performed By: #### 1 023, 7599, 5363 #### [facility] [address] [address] Internet Specialist: Gelacio Alonso MD Globulin (S) [Mass/Vol] 2.5 g/dL Normal 1.9-3.7 [facility] Comment on above: Performed By: #### 1 023, 7599, 5363 #### [facility] of [place] [address] Internet Specialist: Gelacio Alonso MD Glucose [Mass/Vol] 83 mg/dL Normal 65-99 [facility] Comment on above: Result Comment: Fasting reference interval Performed By: #### 1 023, 7599, 5363 #### [facility] [place] [address] Internet Specialist: Gelacio Alonso MD Potassium [Moles/Vol] 4.5 mmol/L Normal 3.5-5.[address] [facility] Comment on above: Performed By: #### 1 023, 7599, 5363 #### [facility] of [place] [address] Internet Specialist: Gelacio Alonso MD Protein [Mass/Vol] 6.8 g/dL Normal 6.1-8.1 [facility] Comment on above: Performed By: #### 1 023, 7599, 5363 #### [facility] [address], [address] [place] [address] Internet Specialist: Gelacio Alonso MD Sodium [Moles/Vol] 141 mmol/L Normal 135-146 [facility] Comment on above: Performed By: #### 1 0231, 7600, 5363 #### [facility] [address], [address] [place] [address] Internet Specialist: Gelacio Alonso MD Urea nitrogen [Mass/Vol] 20 mg/dL Normal 7-25 [facility] Comment on above: Performed By: #### 1 0231, 7600, 5363 #### [facility] of [address] [address] Internet Specialist: Gelacio Alonso MD LIPID PANEL, [facility] 08-2 Cholesterol [Mass/Vol] 138 mg/dL Normal <200 [facility] Comment on above: Performed By: #### 1 0231, 0, 5363 #### [facility] [address], [address] [place] [address] Internet Specialist: Gelacio Alonso MD Cholesterol in HDL [Mass/Vol] 49 mg/dL Normal > OR = 40 [facility] Comment on above: Performed By: #### 1 0231, 7600, 5363 #### [facility] [place] [address] Internet Specialist: Gelacio Alonso MD Cholesterol in LDL [Mass/Vol] [...] LDL-C. Paul CHERRY et al. JULEE. 2013;310(19): 9680-7356 (http://education.elmeme.me.[employer] Port[employer]/faq/NFJ973) Performed By: #### 1 0231, 7600, 5363 #### [facility] [address], [address] [place] [address] Internet Specialist: Gelacio Alonso MD Cholesterol.total/Chol esterol in HDL [Mass ratio] 2.8 {ratio} Normal <5.0 [facility] Comment on above: Performed By: #### 1 0231, 7600, 5363 #### [facility] [address], [address] [place] [address] Internet Specialist: Gelacio Alonso MD NON HDL CHOLESTEROL 89 mg/dL (calc) Normal <130 [facility] Comment on above: Result Comment: For patients with diabetes plus 1 major ASCVD risk factor, treating to a non-HDL-C goal of <100 mg/dL (LDL-C of <70 mg/dL) is considered a therapeutic option. Performed By: #### 1 023, 0, 5363 #### [facility] [address], [address] [place] [address] Internet Specialist: Gelacio Alonso MD Triglyceride [Mass/Vol] 79 mg/dL Normal <150 [facility] Comment on above: Performed By: #### 1 023, 0, 5363 #### [facility] [place] [address] Internet Specialist: Gelacio Alonso MD PSA, TOTALon 02-04-2021 PSA, TOTAL 0.3 ng/mL Normal < OR = 4.0 [facility] Comment on above: Result Comment: The [...] 1 0231, 7600, 5363 #### [facility] [address], [address] [place] [address] Internet Specialist: Gelacio Alonso MD Vital Signs Date Time Vital Sign Value Performing Clinician Indu machado 08-11-2023 10:59-0500 Body height 170.2 cm Day Obando APRN-WEB ANALYTICS SPECIALIST Work Phone: [facility] [employer] [facility] 08-11-2023 10:59-0500 Body mass index (BMI) [Ratio] 34.22 kg/m2 Day Obando GRID INSPECTOR-WEB ANALYTICS SPECIALIST Work Phone: [facility] [employer] 08-11-2023 10:59-0500 Body temperature 97.5 [degF] Day Obando GRID INSPECTOR-WEB ANALYTICS SPECIALIST Work Phone: [facility] 08-11-2023 10:59-0500 Body weight 99.11 kg Day Obando GRID INSPECTOR-WEB ANALYTICS SPECIALIST Work Phone: [facility] [employer] [facility] 08-11-2023 10:59-0500 Diastolic blood pressure 78 mm[Hg] Day Obando APRN-WEB ANALYTICS SPECIALIST Work Phone: [facility] [employer] 08-11-2023 10:59-0500 Heart rate 84 /min Day Obando APRN-WEB ANALYTICS SPECIALIST Work Phone: [facility] 08-11-2023 10:59-0500 SaO2% (BldA) [Mass fraction] 95 % Day Obando APRN-WEB ANALYTICS SPECIALIST Work Phone: [facility] 08-11-2023 10:59-0500 Systolic blood pressure 112 mm[Hg] Day Obando APRN-WEB ANALYTICS SPECIALIST Work Phone: [facility] [employer] 07-31-2023 12:42-0500 SaO2% (BldA) [Mass fraction] 92 % Mike Ahammad DO [facility] 07-31-2023 11:40-0500 Body temperature 98.6 [degF] Mike Ahammad DO Work Phone: [facility] [employer] 07-31-2023 11:40-0500 Diastolic blood pressure 64 mm[Hg] Mike Ahammad DO Work Phone: [facility] [employer] 07-31-2023 11:40-0500 Heart rate 115 /min Mike Ahammad DO Work Phone: [facility] [employer] 07-31-2023 11:40-0500 Respiratory rate 11 /min Mike Ahammad DO Work Phone: [facility] [employer] 07-31-2023 11:40-0500 Systolic blood pressure 102 mm[Hg] Mike Ahammad DO Work Phone: [facility] [employer] 07-28-2023 12:39-0500 Body temperature 35.0 Mike Ahammad DO Work Phone: [facility] [employer] 07-28-2023 11:00-0500 Body temperature 37.0 Mike Ahammad DO Work Phone: [facility] [employer] 07-28-2023 10:16-0500 Body temperature 37.0 Mike Ahammad DO Work Phone: [facility] [employer] 07-28-2023 06:21-0500 Body height 170.2 cm Mike Ahammad DO Work Phone: [facility] [employer] 07-28-2023 06:21-0500 Body mass index (BMI) [Ratio] 33.52 kg/m2 Mike Ahammad DO Work Phone: [facility] [employer] 07-28-2023 06:21-0500 Body weight 97.07 kg Mike Ahammad DO Work Phone: [facility] [employer] Encounters Encounter Date Encounter Type Care Provider Facility Start: 04-17-2024 End: 04-17-2024 ambulatory ADY OBANDO [facility] Start: 04-15-2024 End: 04-15-2024 Orders Only Day Obando GRID INSPECTOR-WEB ANALYTICS SPECIALIST Work Phone: [facility] Comment on above: Hypokalemia (Primary Dx) Start: 04-12-2024 End: 04-15-2024 Refill Day Shaw Obando GRID INSPECTOR-WEB ANALYTICS SPECIALIST Work Phone: [facility] Start: 03-25-2024 End: 03-25-2024 ambulatory Macey Monterroso MD Facility: [facility] Start: 03-13-2024 End: 03-14-2024 Refill Day Shaw Obando GRID INSPECTOR-WEB ANALYTICS SPECIALIST Work Phone: [facility] Start: 03-04-2024 End: 03-04-2024 ambulatory Macey Monterroso MD Facility:[facility] Start: 01-08-2024 End: 01-08-2024 ambulatory Macey Monterroso MD Facility:[facility] Start: 12-28-2023 End: 12-28-2023 ambulatory [facility] Start: 12-01-2023 End: 12-01-2023 ambulatory [facility] Start: 11-27-2023 End: 11-29-2023 ambulatory [facility] Start: 11-27-2023 End: 11-29-2023 Subsequent hospital visit by physician Nikki Denton [facility] Comment on above: Lumbar disc disease with radiculopathy Start: 11-23-2023 End: 11-25-2023 Subsequent hospital visit by physician Keke Mckeon Dr Room 4 [facility] Comment on above: 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) Start: 11-23-2023 End: 11-25-2023 ambulatory [facility] Start: 11-13-2023 End: 12-11-2023 ambulatory [facility] Start: 11-01-2023 End: 11-01-2023 ambulatory [facility] Start: 10-17-2023 End: 11-11-2023 ambulatory [facility] Start: 10-12-2023 End: 11-11-2023 ambulatory [facility] Start: 10-05-2023 End: 10-11-2023 ambulatory [facility] Start: 09-26-2023 End: 10-11-2023 [facility] Start: 09-22-2023 End: 09-24-2023 ambulatory BETHANY [facility]id [facility] Start: 09-11-2023 End: 10-11-2023 ambulatory [facility] Start: 08-25-2023 Refill Day Obando GRID INSPECTOR-WEB ANALYTICS SPECIALIST Work Phone: [facility] - [facility] Start: 08-22-2023 Orders Only Day Obando GRID INSPECTOR-WEB ANALYTICS SPECIALIST Work Phone: [facility] Start: 08-14-2023 End: 09-11-2023 [facility] Start: 08-11-2023 End: 08-11-2023 Transitional care manage srvc 14 day discharge Day Obando GRID INSPECTOR-WEB ANALYTICS SPECIALIST Work Phone: [facility] Comment on above: Type 2 diabetes ricardo itus without complication, without long- term current use of insulin ([facility]) (Primary Dx); Essential hypertension Start: 08-11-2023 End: 08-11-2023 ambulatory [facility] Start: 08-07-2023 End: 08-11-2023 ambulatory [facility] Start: 07-28-2023 End: 07-31-2023 Evaluation and management of inpatient Mike Powelld DO Work Phone: [facility] Comment on above: 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) (Primary Dx) Start: 07-27-2023 End: 07-29-2023 ambulatory [facility] Start: 07-10-2023 End: 07-14-2023 ambulatory [facility] Start: 07-10-2023 End: 07-14-2023 Encounter for other preprocedural examination [facility] Start: 06-29-2023 End: 06-29-2023 ambulatory DAY OBANDO [facility] Start: 06-14-2023 Refill Day Obando GRID INSPECTOR-WEB ANALYTICS SPECIALIST Work Phone: [facility] Internal Medicine - Family Medicine Start: 06-07-2023 End: 06-09-2023 ambulatory [facility] Start: 05-19-2023 End: 05-24-2023 ambulatory DAY [facility] Start: 05-15-2023 End: 05-17-2023 ambulatory CUAUHTEMOC [facility] Start: 12-08-2022 ambulatory NARENDRANATH LAKSHMIPATHY . Facility:H1 [...] Adult depression scr eening assessment Day Obando GRID INSPECTOR-WEB ANALYTICS SPECIALIST Work Phone: Start: 11-27-2023 Radex spine lumbosac ral only bending 2/3 views Mike Ahammad DO Work Phone: Start: 08-11-2023 Follow-up visit Follow-up DAY OBANDO Start: 08-11-2023 Adult depression scr eening assessment Day Obando GRID INSPECTOR-WEB ANALYTICS SPECIALIST Work Phone: Start: 07-31-2023 Glucose blood reagen [...] Arthrodesis pst/pstlat cervical belw c2 sgm Mike Miguelangelmmad DO Work Phone: Start: 07-28-2023 Gluc bld gluc mntr d ev cleared fda spec home use Mike Miguelangelmmad DO Work Phone: Start: 07-28-2023 Potassium [Moles/vol ume] in Serum or Plasma Mike Ahammad DO Work Phone: Start: 03-30-2023 Adult depression scr eening assessment Day Obando GRID INSPECTOR-WEB ANALYTICS SPECIALIST Work Phone: Plan of Treatment Date Care Activity Detail Author Start: 01-11-2026 Screening for malign ant neoplasm of colon Colon Cancer Screening 3 Year Cologuard [facility] Start: 03-03-2025 DTaP,Tdap and Td Vaccines (4 - Td or Tdap) DTaP,Tdap and Td Vaccines (4 - Td or Tdap) [facility] Start: 03-03-2025 DTaP/Tdap/Td vaccine (4 - Td or Tdap) DTaP/Tdap/Td vaccine (4 - Td or Tdap) [facility] Start: 12-27-2024 Adult BMI Screening Adult BMI Screen ing [facility] Start: 12-27-2024 Depression Screening Depression Scre [facility] Start: 12-27-2024 Fall Risk Screening Fall Risk Screen ing [facility] Start: 12-27-2024 Tobacco Screening Tobacco Screening [facility] Start: 08-10-2024 Adult BMI Screening Adult BMI Screen ing [facility] Start: 08-10-2024 Depression Screening Depression Scre ening [facility] Start: 08-10-2024 Tobacco Screening Tobacco Screening [facility] Start: 07-31-2024 GFR test (Diabetes, CKD 3-4, OR last GFR 15-59) GFR test (Diabetes, CKD 3-4, OR last GFR 15-59) [facility] Start: 07-31-2024 Lipid panel Lipids [facility] Start: 07-29-2024 Hemoglobin A1c measurement A1C test (Diabetic or Prediabetic) [facility] Start: 03-30-2024 Adult BMI Screening Adult BMI Screen ing [facility] Start: 03-30-2024 Depression Screening Depression Scre ening [facility] Start: 03-30-2024 Tobacco Screening Tobacco Screening [facility] Start: 02-19-2024 End: 02-19-2024 Patient encounter procedure 02/19/2024 1:30 PM EDT Office Visit [facility] [address], [place] [address] Ahacolt, Mike, DO [address] [facility] [address] [place] [address] Scoli & Flex ext xrays [facility] Comment on above: Scoli [employer] Flex ext xra ys Start: 02-11-2024 COVID-19 Vaccine ( season) COVID-19 Vaccine ( season) [facility] Start: 02-11-2024 COVID-19 Vaccine ( season) COVID-19 Vaccine ( season) [facility] Start: 02-11-2024 Influenza vaccination Influenza Vacc ine [facility] Start: 01-26-2024 Abdominal aortic aneurysm screening Abdominal Aortic Aneurysm (AAA) Screen [facility] Start: 01-11-2024 Influenza vaccination Flu vacc ine (Season Ended) [facility] Start: 11-27-2023 End: 11-27-2023 Patient encounter procedure 11/27/2023 11:00 AM EDT Office Visit [facility] [address], [place] [address] Mike Townsend, DO [address] [place] [address] Print PT OT [facility] Comment on above: Print PT OT Start: 11-10-2023 End: 11-10-2023 Patient encounter procedure 11/10/2023 8:40 AM EDT Office Visit [facility] [address] [place] [address] Day Obando, GRID INSPECTOR-WEB ANALYTICS SPECIALIST [address] [place] [address] [facility] Start: 09-25-2023 End: 09-25-2023 Patient encounter procedure 09/25/2023 11:00 AM EDT Office Visit [facility] [address], [place] [id number] Mike Townsend DO [address] [place] [id number] 8 wk post op [facility] Comment on above: 8 wk post op Start: 08-14-2023 End: 08-14-2023 Patient encounter procedure 08/14/2023 9:30 AM EST Office Visit [facility] [address], [place] [phone] Bethany Hwang, GRID INSPECTOR - WEB ANALYTICS SPECIALIST [address] [facility] [address] [place], [place] [id number] 2 wk post op-ahammad [facility] Comment on above: 2 wk post op-ahammad Start: 06-29-2023 End: 06-29-2023 Patient encounter procedure 06/29/2023 9:00 AM EST Office Visit [facility] [address] [place] [address] Day Obando, GRID INSPECTOR-WEB ANALYTICS SPECIALIST [address] [place] [address] [facility] Internal Medicine - Family Medicine Start: 02-10-2023 COVID-19 Vaccine ( season) COVID-19 Vaccine ( season) [facility] Start: 02-10-2023 Influenza vaccination Influenza Vacc ine [facility] Start: 01-10-2023 Influenza vaccination Flu vaccine (# 1) [facility] Start: 2019 Respiratory Syncytia l Virus (RSV) or age 60 yrs+ (1 - 1-dose 60+ series) Respiratory Syncytial Virus (RSV) or age 60 yrs+ (1 - 1-dose 60+ series) [facility] Start: 2009 Administration of varicella zoster vaccine Zoster (Shingles) Vaccine (1 of 2) [facility] Start: 2009 Screening for malign ant neoplasm of lung Low dose CT lung screening &/or counseling [facility] [employer] [facility] Start: 2009 Shingles vaccine (1 of 2) Shingles vaccine (1 of 2) [facility] Start: 01-26-2004 Screening for malign ant neoplasm of colon [facility] Start: 1977 Adult BMI Follow Up Plan Adult BMI Follow Up Plan [facility] Start: 1977 Diabetic foot examination Diabetic Foot Exam [facility] Start: 1977 Glaucoma screening Diabetic retinal exam [email or web address] Start: 1977 Hepatitis C screening Hepatitis C sc reen [facility] [employer] [facility] Start: 1977 Urine screening for protein Diabetic Alb to Cr ratio (uACR) test [facility] [employer] [facility] Start: 1974 HIV screening HIV screen [facility] [employer] Start: 1971 Depression Screen Depression Screen [facility] Start: 1969 Diabetic foot examination Diabetic foot exam [email or web address] Start: 1965 Pneumococcal 0-64 ye ars Vaccine (1 - PCV) Pneumococcal 0-64 years Vaccine (1 - PCV) [email or web address] Start: 1965 Pneumococcal 0-64 ye ars Vaccine (1 of 2 - PCV) Pneumococcal 0-64 years Vaccine (1 of 2 - PCV) [email or web address] Start: 1959 COVID-19 Vaccine (#1) COVID-19 Vacci ne (#1) [email or web address] Start: 1959 Glaucoma screening Diabetic Op hthalmology Exam [facility] Start: 1959 Urine screening for protein Urine Microalbumin [facility] End: 04-15-2025 Basic metabolic 2000 panel - Serum or Plasma Basic Metabolic Panel Lab Routine Hypokalemia 1 Occurrences starting 04/15/2024 until 04/15/2025 [facility] Work Phone: Comment on above: 1 Occurrences starti ng 04/15/2024 until 04/15/2025 End: 07-28-2023 Glucose [Mass/volume] in Serum or Plasma [facility] Comment on above: 4X Daily (AC & HS) u ntil discontinued starting 07/28/2023 One Time for 1 Occur rences starting 07/28/2023 until 07/28/2023 As Needed until disc ontinued starting 07/28/2023 Oxygen therapy [[facility] Data Set] Initiate Oxygen Therapy Protocol Respiratory Care Routine As Needed until discontinued starting 07/28/2023 [facility] Comment on above: As Needed until disc ontinued starting 07/28/2023 Spirometry panel Incentive jerome metry Respiratory Care Routine Every 2hr while awake until discontinued starting 07/28/2023 [facility] Comment on above: Every 2hr while awak e until discontinued starting 07/28/2023 Spirometry panel Incentive jerome metry RT Respiratory Care Routine Every 2hr while awake until discontinued starting 07/29/2023 [facility] Comment on above: Every 2hr while awak e until discontinued starting 07/29/2023 End: 11-23-2023 XR Cervical spine 2 or 3 Views [facility] Work Phone: Comment on above: 1 Occurrences starti ng 11/23/2023 until 11/23/2023 Immunizations Immunization Date Immunization Notes Care Provider Gilma cantu 03-03-2015 tetanus toxoid, redu latricia diphtheria toxoid, and acellular pertussis vaccine, adsorbed Day Topher GRID INSPECTOR-WEB ANALYTICS SPECIALIST Work Phone: [facility] [facility] 05-26-2013 tetanus toxoid, redu latricia diphtheria toxoid, and acellular pertussis vaccine, adsorbed Day Topher GRID INSPECTOR-WEB ANALYTICS SPECIALIST Work Phone: [facility] [employer] 07-05-2011 tetanus toxoid, redu latricia diphtheria toxoid, and acellular pertussis vaccine, adsorbed Day Obando GRID INSPECTOR-WEB ANALYTICS SPECIALIST Work Phone: [facility] [employer] [facility] Work Phone: Payers Date Payer Category Payer Managed Care Other (unspecified) [employer] [place] [id number] 2022 Private Health Insurance [facility] [employer] [id number] 2022-Present [phone] [address] [address] [place] [address] [id number] [id number] 2022 Unknown 1959 Medicare [id number] 1959 Unknown [id number] 1959 Unknown [id number] 1959 Unknown [id number] 2.16.840.1.928275.3.579. 2.593 1959 Unknown [id number] 2.16.840.1.599928.3.579. 2.593 1959 Unknown [id number] 2.16.840.1.310317.3.579. 2.593 1959 Unknown [id number] 2..840.1.381940.3.579. 2.593 1959 Unknown [id number] 2.16.840.1.555129.3.579. 2.593 1959 Unknown [id number] 2..840.1.592393.3.579. 2.593 1959 Unknown [id number] 2..840.1.005481.3.579. 2.59 1959 Unknown [id number] 2..840.1.484930.3.579. 2.593 1959 Unknown [id number] 2.840.1.815538.3.579. 2.59 1959 Unknown [id number] 2..840.1.768499.3.579. 2.593 1959 Unknown [id number] 2..840.1.308875.3.579. 2.593 1959 Unknown [id number] 2..840.1.496216.3.579. 2.593 1959 Unknown [id number] 2.840.1.298306.3.579. 2.59 1959 Unknown [id number] 2..840.1.458810.3.579. 2.593 1959 Unknown [id number] 2.16.840.1.505395.3.579. 2.177 1959 Unknown [id number] 2.16.840.1.105784.3.579. 2.173 1959 Unknown [id number] 2..840.1.338144.3.579. 2.173 1959 Unknown [id number] 2.16.840.1.702224.3.579. 2.173 1959 Unknown [id number] 2.16.840.1.932718.3.579. 2.173 1959 Unknown [id number] 2.16.840.1.495607.3.579. 2.173 1959 Unknown [id number] 2.16.840.1.560906.3.579. 2.1286 1959 Unknown [id number] 2.16.840.1.826759.3.579. 2.1286 1959 Unknown [id number] 2.16.840.1.311039.3.579. 2.128 1959 Unknown [id number] 2.16.840.1.911058.3.579. 2.1285 1959 Unknown [id number] 2.16.840.1.989437.3.579. 2.128 1959 Unknown [id number] 2.16.840.1.783854.3.579. 2.175 1959 Unknown [id number] 2.16.840.1.255491.3.579. 2.175 1959 Unknown [id number] 2.16.840.1.290890.3.579. 2.175 1959 Unknown [id number] 2.16.840.1.114370.3.579. 2.175 1959 Unknown [id number] 2.16.840.1.251300.3.579. 2.175 1959 Unknown [id number] 2.16.840.1.893333.3.579. 2.175 1959 Unknown [id number] 2.16.840.1.539959.3.579. 2.196 1959 Unknown [id number] 2.16.840.1.214199.3.579. 2.196 1959 Unknown [id number] 2.16.840.1.937942.3.579. 2.196 1959 Unknown [id number] 2.16.840.1.509786.3.579. 2.1286 1959 Unknown [id number] 2.16.840.1.653823.3.579. 2.128 1959 Unknown [id number] 2.16.840.1.218245.3.579. 2.1286 1959 Unknown [id number] 2.16.840.1.571157.3.579. 2.1285 1959 Unknown [id number] 2.16.840.1.933299.3.579. 2.1285 1959 Unknown [id number] 2.16.840.1.186110.3.579. 2.1285 1959 Unknown [id number] 2.16.840.1.740437.3.579. 2.128 1959 Unknown [id number] 2.16.840.1.995257.3.579. 2.1285 1959 Unknown [id number] 2.16.840.1.617173.3.579. 2.1286 Social History Date Type Detail Facility Start: 07-07-2022 End: 11-01-2023 Tobacco smoking status NHIS Ex-smoker [facility] Start: 06-18-1998 End: 06-18-2018 History of tobacco use Current smoker [facility] Start: 06-18-1998 End: 06-18-2018 History of tobacco use Cigarette Smoker [facility] Start: 07-23-2020 End: 07-07-2022 Cigarettes smoked current (pack per day) - Reported 1.5 [facility] Start: 07-07-2022 End: 11-01-2023 Tobacco use and exposure Smokeless tobacco non-user [facility] Start: 03-30-2023 End: 12-28-2023 Alcohol intake Current non-drinker of alcohol (finding) [facility] [employer] Start: 09-17-2018 End: 07-23-2020 Alcohol Use Disorder Identification Test - Consumption [AUDIT-C] [facility] Frequency of Alcohol Consumption Never [facility] [employer] [facility] Start: 1960 Sex Assigned At Not on file P [facility] Start: 07-31-2023 End: 08-14-2023 Alcohol intake Lifetime non-drinker (finding) [facility] Has the [employer], or water [employer] threatened to shut off services in your home in past 12Mo No [facility] (I/We) worried whe er (my/our) food would run out before (I/we) got money to buy more. Never true [facility] Start: 01-15-2015 Sex Male (finding) [facility] System Medical Equipment Procedure Code Equipment Code Equipment Origin al Text Equipment Identifier Dates Brng Tib 09fzx35 mm 0d Kn Ant - [id number] Start: 03-27-2019 Cmnt Bn Bio 40gm Rpl [id number] - [id number] Start: 03-27-2019 Cmpt Ptlr Thn 31 mm 3 Pg Kn Ser - [id number] Start: 03-27-2019 Impl Spine Chapin Symphony 4.0mm 240mm - [id number] Start: 07-28-2023 Screw Spnl Polya x 5.5x30 Mm Oct For 4 Mm Chapin Ns Sym - [id number] Start: 07-28-2023 Screw Spnl Polya x 5.5x32 Mm Oct For 4 Mm Chapin Ns Sym - [id number] Start: 07-28-2023 Screw Spnl 3.5x1 4mm Symphony - [id number] Start: 07-28-2023 Screw Spinal F/Symphony Oct System - [id number] Start: 07-28-2023 Cmpt Fem Kn Lt 72.5mm Cr Cmnt - [id number] Start: 03-27-2019 Ty Tib 75mm Cocr Kn I Beam - [id number] Start: 03-27-2019 Goals Date Patient Goal Desired Activity /State Personal health goal Comment on above: Formatting of this n ote might be different from the original. Evaluation of progress towards goal: Maximize work w pt at [facility] Clinical Notes 01-20-2022 to 04-12-2024 Telephone Encounter - DINORA Contreras - 04/12/2024 6:20 AM EDTTelephone Encounter - DINORA Contreras - 04/12/2024 6:20 AM EDTBDINORA Rodriguez - 08/11/2023 10:30 AM EST Note Date & Type Note Facility 04-12-2024 Miscellaneous Notes It has been since Jul since his potassium was checked so I sent BMP to [employer] lab - he can get this drawn at his convenience. documented in this encounter [facility] 04-12-2024 Telephone encounter Note It has been since Jul since his potassium was checked so I sent BMP to [employer] lab - he can get this drawn at his convenience. [facility] 08-11-2023 History of Present illness Narrative Images [...] and headaches. Objective Physical Exam Vitals reviewed. Medicaid Eligibility Specialist present: Here with spouse. Constitutional: General: He [...] complication, without long-term current use of insulin ([facility]) Essential hypertension Other orders - metoprolol [...] Contreras 08/14/23 1023 documented in this encounter [facility] 07-31-2023 Hospital course Narrative Images from the original note were not included. Department of Neurosurgery Discharge Summary PATIENT NAME: Kedar Ocasio BIRTHDATE: 1960 DATE: 07/31/2023 PRIMARY CARE PHYSICIAN: Day Obando APRN - CNP DISCHARGE DATE: 07/31/2023 DISCHARGE DIAGNOSIS: Stenosis of cervical spine with myelopathy Patient Active Problem List Diagnosis Code Stenosis of cervical spine with myelopathy ([facility]) M48.02, G99.2 Primary hypertension I10 Type 2 diabetes mellitus ([facility]) E11.9 DISPOSITION: Home PROCEDURES: Posterior lateral [...] as: KLOR-CON Vitamin D3 50 MCG (1999 [place]) Caps STOP taking these medications HYDROcodone-acetaminophen 5-325 [...] Your Medications These medications were sent to [place] [id number] [facility] - [phone] - F [phone] [place] [id number] metoprolol tartrate 25 MG tablet oxyCODONE-acetaminophen 5-325 MG per tablet Diet: ADULT DIET; Regular; 4 carb choices (60 gm/meal) diet as tolerated Activity: Provided in AVS Wound Care: Daily and as needed Follow-up: in the NSG clinic as shown in AVS Time Spent for discharge: 30 minutes JULIETTE Dominique CNP 07/31/2023, 1:19 PM documented in this encounter [facility] 07-31-2023 History of Present illness Narrative Physical Therapy Facility/Department: [address] NEURO Physical Therapy Progress Note Name: [...] 3-5 steps with a railing?: A Little AM-PAC Inpatient Mobility Raw Score : 19 AM-PAC Inpatient T-Scale Score : 45.44 Mobility Inpatient [...] from the original note were not included. [facility] Internal Medicine Teaching Residency Program Inpatient Daily Progress Note Patient: Kedar Ocasio Date of : 1960 Acct: [id number] Room: Admit date: 07/28/2023 Today's date: 07/31/23 [...] medical standpoint Soraida Frias PGY-3 Internal Medicine [place], [place] 11:02 AM 07/31/2023 Attestation and add [...] documented by the [place] [address]. Answering Service: Images from the original note [...] X.Serafin Palomino DO Neurosurgeon Neurosurgical oncologist Office: [phone] Cell: [phone] Images from the original note were not included. [facility] Internal Medicine Teaching Residency Program Inpatient Daily Progress Note Patient: Kedar Ocasio Date of : 1960 Acct: [id number] Room: [address] [place] [address] Admit date: 07/28/2023 Today's date: 07/30/23 Number [...] hypertension: Blood pressure well under control 1 37 At home on Norvasc 10, lisinopril hydrochlorothiazide [...] OT on board Discharge Planning / SW: ems manager discharge planning Terri Ayala MD Internal Medicine Resident, PGY-1 [facility] [place], [place] 07/30/2023, 7:00 AM Attestation and add [...] the resident. Prgressing satisfactorily [place] [address]. Answering Service: [facility] PROGRESS NOTE Shift date: 07/29/2023 Shift day: Monday Shift # 2 Room # 0101/0101-01 Name: Kedar Ocasio Presybeterian: Place of jainism: Referral: Routine Visit Admit Date & Time: 07/28/2023 5:37 AM Assessment: Kedar Ocasio is a 63 y.o. male in the hospital . Patient had family support present in room and appeared calm and coping. Intervention: Placement Director introduced self and title as solar site assessment specialist. Patient did not appear to mind solar site assessment specialist presence and engaged in conversation. Mysql Database Administrator provided a supportive presence through active listening and words of affirmation. Outcome: Patient appeared receptive to solar site assessment specialist visit. Plan: Chaplains will remain available to offer spiritual and emotional support as needed. . [facility] [phone] Physical Therapy Facility/Department: [address] NEURO Physical Therapy Initial Assessment Name: [...] transfers CG+1, gait 120' CG+1, forward posture, [place] collar. Body Structures, Functions, Activity Limitations Requiring [...] d/t LE weakness/pain) Transfer Assistance: Independent Active Producer: Yes Vision/Hearing Vision Vision: Impaired Vision Exceptions: [...] Fair;- Comments: with rwalker Exercise Treatment: ankle [id number] A/AROM Exercises: AAROM B hips, limited by [...] X.Serafin Palomino DO Neurosurgeon Neurosurgical oncologist Office: [phone] Cell: [phone] Images from the original note were not included. [facility] Internal Medicine Teaching Residency Program Inpatient Daily Progress Note Patient: Kedar Ocasio Date of : 1960 Acct: [id number] Room: 01006-12 Admit date: 07/28/2023 Today's date: 07/28/23 Number [...] OT on board Discharge Planning / SW: ems manager discharge planning Terri Ayala MD Internal Medicine Resident, PGY-1 [facility], [place], [place] 07/29/2023, 5:09 AM Attestation and add [...] 166* BP control satisfactory [place] [address]. Answering Service: Neurosurgery Post op Progress Note [...] remains in house. documented in this encounter [facility] 07-31-2023 Hospital Discharge instructions Soraida [...] or concerns. The office phone number is [phone]. documented in this encounter [facility] 09-15-2022 Note CONSULTATION CONSULTATION DATE: 09/15/2022 [...] our patients to inform us about any aoxb-pey-mfsvcyf medications or herbal remedies/nutritional supplements/alternative remedies. 2. [...] options with their primary care provider. [facility] 08-09-2022 Note PROCEDURE: XR KNEE R T 3V COMPARISON: None. HISTORY: Pain of right knee joint FINDINGS: BONES:No acute fracture or dislocation. Mild degenerative osteoarthropathy with mild atrophy. SOFT TISSUES:Negative. No visible soft tissue swelling. EFFUSION:None visible. OTHER: Negative. IMPRESSION: Mild osteoarthritis Electronically authenticated by: GUILLERMO AMADOR Date: 2022-08-09 17:19 [facility] 08-09-2022 Note PAIN MANAGEMENT CONS ULTATION CONSULTATION [...] under fluoroscopic guidance. Will as well. [facility] 04-21-2022 Note CONSULTATION CONSULTATION DATE: 04/21/2022 HISTORY [...] up in the office post procedure. [facility] - [place] 01-20-2022 Note CONSULTATION CONSULTATION DATE: 01/20/2022 This [...] agrees with the plan of care. The [facility] [place] Evaluation note Diagnosis 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)- Primary 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) Primary hypertension Unspecified essential hypertension Type 2 diabetes mellitus (HCC) Type II or unspecified type diabetes mellitus without mention of complication, not stated as uncontrolled [facility] Diagnosis Type 2 diabetes mellitus without complication, without long-term current use of insulin ([facility])- Primary Essential hypertension Unspecified essential hypertension [facility] Diagnosis 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) [facility] Diagnosis Lumbar disc disease with radiculopathy Displacement of lumbar intervertebral disc without myelopathy [facility] Diagnosis Hypokalemia- Primary Hypopotassemia documented in [...] cervical spine with myelopathy (HCC) Pedro Mallory, GRID INSPECTOR - WEB ANALYTICS SPECIALIST [address] [address] Referral ID Status Reason Start Date Expiration Date Visits Requested Visits Authorized [id number] Pending Review Specialty Services Required 07/31/2023 01/27/2024 [...] CREATED AUTHOR AUTHOR'S ORGANIZ ATION 10/27/2022 [facility] DATE CREATED AUTHOR AUTHOR'S ORGANIZ ATION 05/26/[address] [facility] DATE CREATED AUTHOR AUTHOR'S ORGANIZ ATION 11/28/2023 [facility] DATE CREATED AUTHOR AUTHOR'S ORGANIZ ATION 01/01/2024 [facility] DATE CREATED AUTHOR AUTHOR'S ORGANIZ ATION 02/20/2024 [facility] DATE CREATED AUTHOR AUTHOR'S ORGANIZ ATION 04/10/2024 [facility] DATE CREATED AUTHOR AUTHOR'S ORGANIZ ATION 04/19/2024 [facility] Reason for Visit (unrecogniz ed section and content) Reason Comments Med Refill Specialty Diagnoses / Procedures Referred By Sandor faulkner Referred To Contact Diagnoses 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) 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) [M48.02, G99.2] Procedures PA ARTHRD PST/PSTLAT TQ 1NTRSPC CRV BELW C2 SEGMENT PA ALLOGRAFT FOR SPINE SURGERY ONLY MORSELIZED PA AUTOGRAFT SPINE SURGERY LOCAL FROM SAME INCISION PA MICROSURG TQS REQ USE OPERATING MICROSCOPE PA STEREOTACTIC COMPUTER ASSISTED PX SPINAL PA LAMINECTOMY W/O FFD > 2 VERT SEG CERVICAL PA ARTHRODESIS PST/PSTLAT TQ 1NTRSPC EA ADDL NTRSPC PA ARTHRODESIS PST/PSTLAT TQ 1NTRSPC EA ADDL NTRSPC PA ARTHRODESIS PST/PSTLAT TQ 1NTRSPC EA ADDL NTRSPC PA ARTHRODESIS PST/PSTLAT TQ 1NTRSPC EA ADDL NTRSPC PA ARTHRODESIS PST/PSTLAT TQ 1NTRSPC EA ADDL NTRSPC PA ARTHRODESIS PST/PSTLAT TQ 1NTRSPC EA ADDL NTRSPC PA POSTERIOR SEGMENTAL INSTRUMENTATION 7-12 VRT SEG C2-T2 POSTERIOR FUSION, DECOMPRESSION (SHEYENNE SPINE TABLE, PRONE, SNOWFLAKE HEADHOLDER, C-ARM, O-ARM, SSEP MONITORING, DEPUY, [employer], [employer] CONF# [id number]) *DR. YODER TO ASSIST* SHORT STAY Mike Townsend, [facility] [address] [place] [address] [facility] [address] [place] [address] Referral ID Status Reason Start Date Expiration Date Visits Re quested Visits Authorized [id number] 1 1 Reason Comments Follow-up Care Teams (unrecognized sec tion and content) Dispatcher [employer] Power Relationship Specialty Start Date End Date Walter Littlejohn DO [address], [facility], [place] [address] PCP - General Family Medicine 09/17/18 Dispatcher [employer] Power Relationship Specialty Start Date End Date Day Obando APRN - JULIA [address] [place] [address] PCP - General Family Medicine 04/10/23 Dispatcher [employer] Relationship Specialty Start Date End Date Day Obando APRN-WEB ANALYTICS SPECIALIST [address] [place] [address] PCP - General Internal Medicine 06/29/23 Dispatcher [employer] Relationship Specialty Start Date End Date Topher Day Shaw GRID INSPECTOR-WEB ANALYTICS SPECIALIST [address] [place] [address] PCP - General Internal Medicine 06/29/23 Dispatcher Electric Power Relationship Specialty Start Date End Date Day Obando GRID INSPECTOR-WEB ANALYTICS SPECIALIST [address] [place] [address] PCP - General Internal Medicine 06/29/23 Dispatcher [employer] Relationship Specialty Start Date End Date Day Obando GRID INSPECTOR - WEB ANALYTICS SPECIALIST [address] [place] [address] PCP - General Family Medicine 04/10/23 Dispatcher Electric Power Relationship Specialty Start Date End Date Day Obando GRID INSPECTOR - WEB ANALYTICS SPECIALIST [address] [place] [address] PCP - General Family Medicine 04/10/23 Dispatcher [employer] Relationship Specialty Start Date End Date Day Obando GRID INSPECTOR - WEB ANALYTICS SPECIALIST [address] [place] [address] PCP - General Family Medicine 04/10/23 Dispatcher Electric Power Relationship Specialty Start Date End Date Day Obando GRID INSPECTOR-WEB ANALYTICS SPECIALIST [address] [place] [address] PCP - General Internal Medicine 06/29/23 Dispatcher Electric Power Relationship Specialty Start Date End Date Day Obando GRID INSPECTOR-WEB ANALYTICS SPECIALIST [address] [place] [address] PCP - General Internal Medicine 06/29/23 Dispatcher [employer] Relationship Specialty Start Date End Date Dya Obando GRID INSPECTOR-WEB ANALYTICS SPECIALIST [address] [place] [address] PCP - General Internal Medicine 06/29/23 Dispatcher Electric Power Relationship Specialty Start Date End Date Day Obando, GRID INSPECTOR-WEB ANALYTICS SPECIALIST [address] [place] [address] PCP - General Internal Medicine 06/29/23 Ordered [...] Carranza RN)1731 (Given - Provider: Kennedy Carranza RN)1799 (Given - Provider: Sweetie Villagomez RN) 0554 [...] Provider: Claudia Chaidez RN)2111 (Given - Provider: Sweeite Villagomez RN) 0838 (Given - Provider: Ozzie Miranda RN)1539 (Given - Provider: Ozzie Miranda RN)2100 (Due) [...] on Mon07/30/23 at 1630, Until Discontinued, Post-op 161 (Given - Provider: Claudia Chaidez RN)1956 (Given - Provider: Sweetie Villagomez RN) 0021 (Given - Provider: Sweetie Villagomez RN)0431 (Given - Provider: Sweetie Villagomez RN)0838 (Given - Provider: Ozzie Miranda RN)1118 (Given - Provider: Ozzie Miranda RN) gabapentin (NEURONTIN) capsule 600 mg 600 mg, Oral, 4 times daily, First dose (after last modification) on Mon07/31/23 at 1700, Until Discontinued, Post-op 170 (Due)2100 (Due) hydroCHLOROthiazide (HYDRODIURIL) tablet 25 mg(Linked [...] 0837 (Given - Provider: Ozzie Miranda, NANCY) potassium chloride (MICRO-K) extended release capsule 10 mEq 10 mEq, Oral, DAILY, First dose on Mon07/28/23 at 1745, Until Discontinued, Do not crush or break., Post-op 0920 (Given - Provider: Kennedy Carranza RN) 0945 (Given - Provider: Lurdes Wiley, NANCY) 0837 (Given - Provider: Ozzie Miranda RN) sodium chloride 0.9 % bolus 250 mL (COMPLETED) 250 mL (2.57 mL/kg), IntraVENous, at 245.9 mL/hr, Administer over 61 Minutes, ONCE, On Mon07/30/23 at 1830, For 1 dose 183 (New Bag - Provider: Lurdes Wiley RN)1939 [...] Carranza RN)1539 (Given - Provider: Kennedy Carranza RN)2005 (Given - Provider: Sweetie Villagomez RN)2303 (Given [...] Wiley RN)1746 (Given - Provider: Lurdes Wiley, NANCY)2149 (Given [...] Carranza RN)1732 (See Alternative - Provider: Kennedy Carranza, NANCY)2120 (See Alternative - Provider: Sweetie Villagomez RN) [...] BE BASED ON THE PRIMARY CLINICAL RECORDS. [employer] [facility]. provides no warranty or guarantee of the accuracy or completeness of information in this document.
--- NOTE | 2024-04-24 07:40 | XR_ITS ---
The [address] [address] Patient Name: KEDAR OCASIO MRN: [id number] date: 1960 Sex: M Assigned Patient Location: MRI Current Patient Location: MRI Accession/Order Number: [id number] Exam Date: 04/24/2024 08:28 Report Date: 04/27/2024 07:27 At the request of: ZBIGNIEW BEGUM Procedure: XR lumbar spine 6V w bending EXAMINATION: XR lumbar spine 6V w bending HISTORY: Low Back Pain ; chronic low back pain and right groin pain COMPARISON: XR L-spine 08/09/2022 FINDINGS: BONES: Slight right convex curvature lumbar spine. No fracture, significant listhesis, or change in alignment during flexion and extension. Moderate degenerative disc space narrowing and posterior endplate osteophytes L1-L2, L2-L3, L4-L5. Marked narrowing L3-L4. No appreciable narrowing at L5-S1. Moderate degenerative facet arthropathy with bone encroachment on the neural foramen at L4-L5 and L5-S1. DISC SPACES: See above. PARASPINOUS: Negative. No paraspinous abnormality is seen. OTHER: Negative. XR/XR lumbar spine 6V w bending IMPRESSION: 1. Marked degenerative changes of lumbar spine; progressed since prior study with most notable progression involving the L3-L4 disc space. Electronically authenticated by: WILL SOARES Date: 04/27/2024 07:27
== END 2024-04-24 07:20 | disposition home or self-care (01) ==
LOC: MRI 07:20
PROVIDERS: PCP Family Medicine; Visit Provider Nurse Practitioner
DX: M48.062 Spinal stenosis, lumbar region with neurogenic claudication (principal)
CPT/HCPCS: 72114; 72148

== ENCOUNTER 2024-04-29 06:21 | Day surgery (SDC) | payer OTHER, MEDICARE, SELFPAY ==
--- OUTSIDE RECORDS SUMMARY | 2024-04-29 06:24 | XMS_ITS | CCD ---
Author Organization [facility] Care Team Providers Care Organizational Development Specialist Name Role Phone LAKSHMIPATHY ., NARENDRANATH Consulting [...] DR ABDOULAYE Lundy Attending Unavailable GEORGE .MARIA DOLOERS Consulting Unavailable MARR ., DR ABDOULAYE Lundy [...] FURLONG, DR WALTER Toney Primary Care Unavailable MOSELLE, DR GUILLERMO Braun Consulting Unavailable TOPHER, DAY [...] Furlong Walter MOY Primary Care Provider Topher TURRET LATHE OPERATOR - [facility], [facility] Primary Care Provider Topher TURRET LATHE OPERATOR-SERVICE COUNTER CASHIER, [facility] Primary Care Provider MIKE TOWNSEND Attending Unavailable [...] Start: 03-30-2023 take 2 tablets by mo [facility] once daily empagliflozin (JARDIANCE) 10 MG [...] Start: 06-27-2022 take 1 capsule by mo [facility] once daily gabapentin (NEURONTIN) 100 mg capsule [...] Start: 06-01-2023 take 2 tablets by mo [facility] once daily in the morning metFORMIN [...] E) injection 5 mg polyethylene glycol [id number] mg powder for oral solution (1 source) Osmotic Laxative Start: 07-28-2023 17 g, Oral, DAILY, First dose on Mon07/28/23 at 1745, Until Discontinued, Post-op sennosides, half-way 8.6 mg oral tablet (1 source) Start: [...] Anion gap [Moles/Vol] 9 mmol/L Normal 5-15 [facility] Comment on above: Performed By: #### B MP #### [facility] ([id number]) [address], [address] [place] [address] Calcium [Mass/Vol] 10.0 mg/dL Normal 8.5-10.5 [facility] Comment on above: Performed By: #### B MP #### [facility] ([id number]) [address], [address] [place] [address] Chloride [Moles/Vol] 101 mmol/L Normal 98-109 [facility] Comment on above: Performed By: #### B MP #### [facility] ([id number]) [address], [address] [place] [address] CO2 [Moles/Vol] 31 mmol/L Normal 22-32 [facility] Comment on above: Performed By: #### B MP #### [facility] ([id number]) [address], [address] [place] [address] Creatinine [Mass/Vol] 1.10 mg/dL Normal 0.60-1.30 [facility] Comment on above: Result Comment: METH OD TRACEABLE TO IDMS STANDARD Performed By: #### B MP #### [facility] ([id number]) [address] [place] [address] GFR/1.73 sq M.predicted among non-blacks MDRD (S/P/Bld) [Vol rate/Area] 74 mL/min/{1.73_m2} Normal >59 [facility] Comment on above: Result Comment: Reported eGFR is based on the CKD-EPI 2020 equation that does not use a race coefficient. Performed By: #### B MP #### [facility] ([id number]) [address], [address] [place] [address] Glucose [Mass/Vol] 106 mg/dL High 65-99 [facility] Comment on above: Performed By: #### B MP #### [facility] ([id number]) [address] [place] [address] Potassium [Moles/Vol] 4.7 mmol/L Normal 3.5-5.0 [facility] Comment on above: Performed By: #### B MP #### [facility] ([id number]) [address] [place] [address] Sodium [Moles/Vol] 141 mmol/L Normal 134-146 [facility] Comment on above: Performed By: #### B MP #### [facility] ([id number]) [address], [address] [place] [address] Urea nitrogen [Mass/Vol] 20 mg/dL Normal 5-27 [facility] Comment on above: Performed By: #### B MP #### [facility] ([id number]) [address] [place] [address] No Panel Informationon 11-28 1. Mild dextroscoliosis of the thoracolumbar junction with a Bowling angle of approximately 13 degrees. 2. Status post posterior fusion from C3 through T1 without hardware complication. 3. 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 [facility] EXAMINATION: TWO XRAY VIEWS SCOLIOSIS SERIES; XRAY [...] intact. The paravertebral soft tissues are unremarkable. [facility] Blake Hale MD - [...] pronounced at L3-4 to a severe degree. [facility] [employer] No Panel InformationOrdered By: Blake Hale on 11-29-2023 [facility] Work Phone: XR LUMBAR SPINE FLEXION AND [...] Blake Hale MD 11/29/23 Final result [facility] XR SPINE ENTIRE (2-3 VIEWS)o n [...] Blake Hale MD 11/29/23 Final result Normal [facility] No Panel Informationon 06-17 -2024 Radiology Study observation (narrative) [facility] XR CERVICAL SPINE (2-3 VIEWS )on [...] MD 11/27/23 Final result Normal [facility] XR CERVICAL SPINE (2-3 VIEWS )on 09-24-2023 [...] DO 09/24/23 Final result Normal [facility] Basic Metab w/rfx MGon 07-31 Anion gap [Moles/Vol] 11 mmol/L Normal 9-17 [facility] Comment on above: Performed By: #### T YS #### [facility] [address] [place] [address] [id number] Splitter Operator: Kan Craig MD Calcium [Mass/Vol] 9.0 mg/dL Normal 8.6-10.4 [facility] Comment on above: Performed By: #### T YS #### [facility] [address] [place] [address] Splitter Operator: Kan Craig MD Chloride [Moles/Vol] 98 mmol/L Normal 98-107 [facility] Comment on above: Performed By: #### T YS #### [facility] [address] [place] [address] Splitter Operator: Kan Craig MD CO2 [Moles/Vol] 24 mmol/L Normal 20-31 [facility] Comment on above: Performed By: #### T YS #### [address] [address] Splitter Operator: Kan Craig MD Creatinine [Mass/Vol] 0.6 mg/dL Low 0.7-1.2 [facility] Comment on above: Performed By: #### T YS #### [address] [address] Splitter Operator: Kan Craig MD GFR/1.73 sq M.predicted among non-blacks MDRD (S/P/Bld) [Vol rate/Area] mL/min/{1.73_m2} Normal >60 [facility] Comment on above: Result Comment: These [...] secretion. Performed By: #### T YS #### [address] [address] Splitter Operator: Kan Craig MD Glucose [Mass/Vol] 155 mg/dL High 70-99 [facility] Comment on above: Performed By: #### T YS #### [address] [address] Splitter Operator: Kan Craig MD Potassium [Moles/Vol] 3.7 mmol/L Normal 3.7-5.3 [facility] Comment on above: Performed By: #### T YS #### [facility] [address] [place], [place] [id number] Splitter Operator: Kan Craig MD Sodium [Moles/Vol] 133 mmol/L Low 135-144 [facility] Comment on above: Performed By: #### T YS #### [facility] [address] [place], [place] [id number] Splitter Operator: Kan Craig MD Urea nitrogen [Mass/Vol] 14 mg/dL Normal 8-23 [facility] Comment on above: Performed By: #### T YS #### [facility] [place], [place] [phone] Splitter Operator: Kan Craig MD Basic Metabolic Panel w/ Ref analisa to [facility] 07-31-2023 Anion gap [Moles/Vol] 11 mmol/L 9 - 17 mmol/L [facility] [employer] Calcium [Mass/Vol] 9.0 mg/dL 8.6 - 10. 4 mg/dL [facility] [employer] Chloride [Moles/Vol] 98 mmol/L 98 - 10 7 mmol/L [facility] [employer] CO2 [Moles/Vol] 24 mmol/L 20 - 31 mmol/L [facility] [employer] Creatinine [Mass/Vol] 0.6 mg/dL Low 0.7 - 1.2 mg/dL [facility] [employer] GFR/1.73 sq M.predicted MDRD (S/P/Bld) [Vol rate/Area] - PINF [facility] Comment on above: These results are not [...] 155 mg/dL High 70 - 99 mg/dL [facility] Potassium [Moles/Vol] 3.7 mmol/L 3.7 - 5.3 mmol/L [facility] Sodium [Moles/Vol] 133 mmol/L Low 135 - 144 mmol/L [facility] Urea nitrogen [Mass/Vol] 14 mg/dL 8 - 23 mg/dL [facility] CBC with Auto Differentialon 07-31-2023 Basophils (Bld) [#/Vol] 0.09 10*3/uL [facility] Basophils/100 WBC (Bld) 1 % 0 - 2 % [facility] Eosinophils (Bld) [#/Vol] 0.09 10*3/uL [facility] Eosinophils/100 WBC (Bld) 1 % 1 - 4 % [facility] Erythrocyte distribution width (RBC) [Ratio] 11.9 % 11.8 - 14.4 % [facility] Hematocrit (Bld) [Volume fraction] 45.5 % 40.7 - 50.3 % [facility] Hemoglobin (Bld) [Mass/Vol] 15.3 g/dL 13.0 - 17.0 g/dL [facility] Immature granulocytes (Bld) [#/Vol] [facility] Immature granulocytes/100 WBC (Bld) 0 % 0 [facility] Interpretation and review of laboratory results Abnormal [facility] Lymphocytes/100 WBC (Bld) 22 % Low 24 - 43 % [facility] Lymphocytes/100 WBC (Bld) 1.89 % [facility] MCH (RBC) [Entitic mass] 31.3 pg 25.2 - 33.5 pg [facility] MCHC (RBC) [Mass/Vol] 33.6 g/dL 28.4 - 34.8 g/dL [facility] MCV (RBC) [Entitic vol] 93.0 fL 82.6 - 102.9 fL [facility] Monocytes/100 WBC (Bld) 11 % 3 - 12 % [facility] Monocytes/100 WBC (Bld) 0.96 % [facility] Neutrophils/100 WBC (Bld) 65 % 36 - 65 % [facility] Nucleated RBC/100 WBC (Bld) [Ratio] 0.0 % 0.0 per 100 WBC [facility] Platelet mean volume (Bld) [Entitic vol] 10.6 fL 8.1 - 13.5 fL [facility] Platelets (Bld) [#/Vol] 234 10*3/uL [facility] RBC (Bld) [#/Vol] 4.89 10*6/uL 4.21 - 5.7 7 m/uL [facility] Segmented neutrophils/100 WBC (Bld) 5.57 % [facility] WBC other (Bld) [#/Vol] 8.[address] [facility] CBC with Diffon 07-31-2023 Abs. Basophil 0.09 k/uL Normal 0.00-0.20 [facility] Comment on above: Performed By: #### T YS #### [place] [address] Splitter Operator: Kan Craig MD Abs.Imm.Granulocyte <0.03 Normal 0.00-0.30 [facility] Comment on above: Performed By: #### T YS #### [place] [address] Splitter Operator: Kan Craig MD Abs.Neutrophil (Seg) 5.57 k/uL Normal 1.50-8.10 [facility] Comment on above: Performed By: #### T YS #### [place] [address] Splitter Operator: Kan Craig MD Basophils/100 WBC (Bld) 1 % Normal 0-2 [facility] Comment on above: Performed By: #### T YS #### [place] [address] Splitter Operator: Kan Craig MD Eosinophils (Bld) [#/Vol] 0.09 10*3/uL Normal 0.00-0.44 [facility] Comment on above: Performed By: #### T YS #### [address] [address] Splitter Operator: Kan Craig MD Eosinophils/100 WBC (Bld) 1 % Normal 1-4 [facility] Comment on above: Performed By: #### T YS #### [address] [address] Splitter Operator: Kan Craig MD Erythrocyte distribution width (RBC) [Ratio] 11.9 % Normal 11.8-14.4 [facility] Comment on above: Performed By: #### T YS #### [address] [address] Splitter Operator: Kan Craig MD Hematocrit (Bld) [Volume fraction] 45.5 % Normal 40.7-50.3 [facility] Comment on above: Performed By: #### T YS #### [address] [address] Splitter Operator: Kan Craig MD Hemoglobin (Bld) [Mass/Vol] 15.3 g/dL Normal 13.0-17.0 [facility] Comment on above: Performed By: #### T YS #### [address] [address] Splitter Operator: Kan Craig MD Immature granulocytes/100 WBC (Bld) 0 % Normal 0 [facility] Comment on above: Performed By: #### T YS #### [address] [address] Splitter Operator: Kan Craig MD Lymphocytes (Bld) [#/Vol] 1.89 10*3/uL Normal 1.10-3.70 [facility] Comment on above: Performed By: #### T YS #### [address] [address] Splitter Operator: Kan Craig MD Lymphocytes/100 WBC (Bld) 22 % Low 24-43 [facility] Comment on above: Performed By: #### T YS #### [address] [address] Splitter Operator: Kan Craig MD MCH (RBC) [Entitic mass] 31.3 pg Normal 25.2-33.5 [facility] Comment on above: Performed By: #### T YS #### [address] [address] Splitter Operator: Kan Craig MD MCHC (RBC) [Mass/Vol] 33.6 g/dL Normal 28.4-34.8 [facility] Comment on above: Performed By: #### T YS #### [address] [address] Splitter Operator: Kan Craig MD MCV (RBC) [Entitic vol] 93.0 fL Normal 82.6-102.9 [facility] Comment on above: Performed By: #### T YS #### [address] [address] Splitter Operator: Kan Craig MD Monocytes (Bld) [#/Vol] 0.96 10*3/uL Normal 0.10-1.20 [facility] Comment on above: Performed By: #### T YS #### [address] [address] Splitter Operator: Kan Craig MD Monocytes/100 WBC (Bld) 11 % Normal 3-12 [facility] Comment on above: Performed By: #### T YS #### [address] [address] Splitter Operator: Kan Craig MD Neutrophil (Seg) 65 % Normal 36-65 [facility] Comment on above: Performed By: #### T YS #### [address] [address] Splitter Operator: Kan Craig MD NRBC Automated 0.0 per 100 WBC Normal 0.0 [facility] Comment on above: Performed By: #### T YS #### [address] [address] Splitter Operator: Kan Craig MD Platelet mean volume (Bld) [Entitic vol] 10.6 fL Normal 8.1-13.5 [facility] Comment on above: Performed By: #### T YS #### [address] [address] Splitter Operator: Kan Craig MD Platelets (Bld) [#/Vol] 234 10*3/uL Normal 138-453 [facility] Comment on above: Performed By: #### T YS #### [address] [address] Splitter Operator: Kan Craig MD RBC (Bld) [#/Vol] 4.89 10*6/uL Normal 4.21-5.77 [facility] Comment on above: Performed By: #### T YS #### [address] [address] Splitter Operator: Kan Craig MD WBC (Bld) [#/Vol] 8.6 10*3/uL Normal 3.5-11.3 [facility] Comment on above: Performed By: #### T YS #### [address] [address] Splitter Operator: Kan Craig MD EKG 12 LeadOrdered By: Froilan Hartmann on 07-31-2023 Atrial Rate 114 BPM [employer] Phone: P Effort 48 degrees [employer] Phone: P-R Interval 168 ms [employer] Work Phone: Q-T Interval 316 ms [employer] Work Phone: QRS Duration 86 ms [employer] Work Phone: QTc Calculation (Bazett) 435 ms [employer] Work Phone: R Effort -37 degrees MARCELA [employer] Work Phone: T Effort 37 degrees MARCELA [employer] Work Phone: Ventricular Rate 114 BPM [employer] Work Phone: MARCELA [employer] Work Phone: EKG 12 Leadon 07-31-2023 Sinus tachycardia Left axis deviation Low voltage QRS 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 rate has increased BY 44 BPM [facility] Froilan Kaminski MD - 07/31/2023 Sinus tachycardia Left axis deviation Low voltage QRS 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 rate has increased BY 44 BPM [employer] Glucose,Whole Bloodon 2023 Glucose [Mass/Vol] 177 mg/dL High 75-110 [facility] Glucose [Mass/Vol] 166 mg/dL High 75-110 [facility] Lipid Panelon 07-31-2023 Cholesterol [Mass/Vol] 141 mg/dL NINF - 200 mg/dL [employer] Comment on above: Cholesterol Guidelines: <200 Desirable 200-240 Borderline >240 Undesirable Cholesterol in HDL [Mass/Vol] 34 mg/dL Low 40 - PINF mg/dL [employer] Comment on above: HDL Guidelines: <40 Undesirable 40-59 Borderline >59 Desirable Cholesterol in LDL [Mass/Vol] 73 mg/dL 0 - 130 mg/dL [employer] Comment on above: LDL Guidelines: <100 Desirable 100-129 Near to/above Desirable 130-159 Borderline >159 Undesirable Direct (measured) LDL and calculated LDL are not interchangeable tests. Cholesterol.total/Chol esterol in HDL [Mass ratio] 4.1 {ratio} NINF - 5 [facility] Triglyceride [Mass/Vol] 169 mg/dL High NINF - 150 mg/dL [facility] Comment on above: Triglyceride Guidelines: <150 Desirable 150-199 Borderline 200-499 High >499 Very high Based on AHA Guidelines for fasting triglyceride, March 2012. Lipid Profileon 07-31-2023 Cholesterol [Mass/Vol] 141 mg/dL Normal <200 [facility] Comment on above: Result Comment: Cholesterol Guidelines: <200 Desirable 200-240 Borderline >240 Undesirable Performed By: #### T YS #### [address] [address] Splitter Operator: Kan Craig MD Cholesterol in HDL [Mass/Vol] 34 mg/dL Low >40 [facility] Comment on above: Result Comment: HDL Guidelines: <40 Undesirable 40-59 Borderline >59 Desirable Performed By: #### T YS #### [facility] [address] [place] [address] Splitter Operator: Kan Craig MD Cholesterol in LDL [Mass/Vol] 73 mg/dL Normal 0-130 [facility] Comment on above: Result Comment: LDL Guidelines: <100 Desirable 100-129 Near to/above Desirable 130-159 Borderline >159 Undesirable Direct (measured) LDL and calculated LDL are not interchangeable tests. Performed By: #### T YS #### [facility] [address] [place] [address] Splitter Operator: Kan Craig MD Cholesterol.total/Chol esterol in HDL [Mass ratio] 4.1 {ratio} Normal <5 [facility] Comment on above: Performed By: #### T YS #### [facility] [address] [place] [address] Splitter Operator: Kan Craig MD Triglyceride [Mass/Vol] 169 mg/dL High <150 [facility] Comment on above: Result Comment: Triglyceride Guidelines: <150 Desirable 150-199 Borderline 200-499 High >499 Very high Based on AHA Guidelines for fasting triglyceride, March 2012. Performed By: #### T YS #### [facility] [address] [place] [address] Splitter Operator: Kan Craig MD No Panel Informationon 07-31 Interpretation and review of laboratory results Abnormal [facility] [email or web address] [facility] [email or web address] POC Glucose Fingerstickon Glucose [Mass/Vol] 177 mg/dL High 75 - 110 mg/dL [facility] [email or web address] Interpretation and review of laboratory results Abnormal [facility] [email or web address] [facility] [email or web address] Glucose [Mass/Vol] 166 mg/dL High 75 - 110 mg/dL [facility] [email or web address] Interpretation and review of laboratory results Abnormal [facility] [email or web address] [facility] [employer] CT CHEST PULMONARY EMBOLISM W CONTRASTon 07-30-2023 [...] Adan Hodges MD 07/30/23 Final result Normal [facility] 1. No evidence of pulmonary embolism or acute pulmonary abnormality. 2. Three-vessel coronary artery calcification. [facility] CONSOLIDATED EXAMINATION: CTA OF THE CHEST [...] No acute bone or soft tissue abnormality. [facility] Adan Hodges MD - [...] pulmonary abnormality. 2. Three-vessel coronary artery calcification. [facility] Radiology Study observation (narrative) [facility] CT CHEST PULMONARY EMBOLISM W CONTRASTOrdered By: Adan Hodges on 07-30-2023 [facility] [email or web address] Work Phone: Glucose,Whole Bloodon 2023 Glucose [Mass/Vol] 167 mg/dL High 75-110 [facility] Glucose [Mass/Vol] 149 mg/dL High 75-110 [facility] Glucose [Mass/Vol] 153 mg/dL High 75-110 [facility] Glucose [Mass/Vol] 142 mg/dL High 75-110 [facility] Hemoglobin A1Con 07-30-2023 Average glucose Estimated from glycated hemoglobin (Bld) [Mass/Vol] 137 mg/dL [facility] Comment on above: The ADA and AACC rec ommend providing the estimated average glucose result to permit better patient understanding of their HBA1c result. HbA1c (Bld) [Mass fraction] 6.4 % High 4.0 - 6.0 % [facility] Interpretation and review of laboratory results Abnormal [facility] Glucose [Mass/Vol] 137 mg/dL Normal [facility] Comment on above: Result Comment: The ADA and AACC recommend providing the estimated average glucose result to permit better patient understanding of their HBA1c result. Performed By: #### B MPX, CDP, GLYHGB ####[facility] [place] [address] [facility] Director: Kan Craig MD HbA1c (Bld) [Mass fraction] 6.4 % High 4.0-6.0 [facility] Comment on above: Performed By: #### B MPX, CDP, GLYHGB ####[facility] [address] [address] Lab Director: Kan Craig MD POC Glucose Fingerstickon Glucose [Mass/Vol] 167 mg/dL High 75 - 110 mg/dL [facility] Interpretation and review of laboratory results Abnormal [facility] Glucose [Mass/Vol] 149 mg/dL High 75 - 110 mg/dL [facility] Interpretation and review of laboratory results Abnormal [facility] Glucose [Mass/Vol] 153 mg/dL High 75 - 110 mg/dL [facility] Interpretation and review of laboratory results Abnormal [facility] Glucose [Mass/Vol] 142 mg/dL High 75 - 110 mg/dL [facility] Interpretation and review of laboratory results Abnormal [facility] Basic Metab w/rfx MGon 07-29 Anion gap [Moles/Vol] 11 mmol/L Normal 9-17 [facility] Comment on above: Performed By: #### T YS #### [address] [address] Splitter Operator: Kan Craig MD Calcium [Mass/Vol] 8.5 mg/dL Low 8.6-10.4 [facility] Comment on above: Performed By: #### T YS #### [facility] [address] [place] [address] Splitter Operator: Kan Craig MD Chloride [Moles/Vol] 105 mmol/L Normal 98-107 [facility] Comment on above: Performed By: #### T YS #### [facility] [address] [place] [address] Splitter Operator: Kan Craig MD CO2 [Moles/Vol] 21 mmol/L Normal 20-31 [facility] Comment on above: Performed By: #### T YS #### [address] [address] Splitter Operator: Kan Craig MD Creatinine [Mass/Vol] 0.8 mg/dL Normal 0.7-1.2 [facility] Comment on above: Performed By: #### T YS #### [address] [address] Splitter Operator: Kan Craig MD GFR/1.73 sq M.predicted among non-blacks MDRD (S/P/Bld) [Vol rate/Area] mL/min/{1.73_m2} Normal >60 [facility] Comment on above: Result Comment: These [...] secretion. Performed By: #### T YS #### [address] [address] Splitter Operator: Kan Craig MD Glucose [Mass/Vol] 146 mg/dL High 70-99 [facility] Comment on above: Performed By: #### T YS #### [address] [address] Splitter Operator: Kan Craig MD Potassium [Moles/Vol] 4.4 mmol/L Normal 3.7-5.3 [facility] Comment on above: Performed By: #### T YS #### [facility] [address] [place] [address] Splitter Operator: Kan Craig MD Sodium [Moles/Vol] 137 mmol/L Normal 135-144 [facility] Comment on above: Performed By: #### T YS #### [address] [address] Splitter Operator: Kan Craig MD Urea nitrogen [Mass/Vol] 14 mg/dL Normal 8-23 [facility] Comment on above: Performed By: #### T #### [facility] [address] [place] [id number] Splitter Operator: Kan Craig MD Basic Metabolic Panel w/ Ref analisa to MGon 07-29-2023 Anion gap [Moles/Vol] 11 mmol/L 9 - 17 mmol/L [facility] Calcium [Mass/Vol] 8.5 mg/dL Low 8.6 - 10. 4 mg/dL [facility] [email or web address] Chloride [Moles/Vol] 105 mmol/L 98 - 10 7 mmol/L [facility] [email or web address] CO2 [Moles/Vol] 21 mmol/L 20 - 31 mmol/L [facility] Creatinine [Mass/Vol] 0.8 mg/dL 0.7 - 1.2 mg/dL [facility] GFR/1.73 sq M.predicted MDRD (S/P/Bld) [Vol rate/Area] - PINF [facility] Comment on above: These results are [...] 146 mg/dL High 70 - 99 mg/dL [facility] Interpretation and review of laboratory results Abnormal [facility] [facility] Potassium [Moles/Vol] 4.4 mmol/L 3.7 - 5.3 mmol/L [facility] [employer] Sodium [Moles/Vol] 137 mmol/L 135 - 144 mmol/L [facility] Urea nitrogen [Mass/Vol] 14 mg/dL 8 - 23 mg/dL [facility] CBC with Auto Differentialon 07-29-2023 Basophils (Bld) [#/Vol] 0.06 10*3/uL [facility] Basophils/100 WBC (Bld) 1 % 0 - 2 % [facility] Eosinophils (Bld) [#/Vol] [facility] Eosinophils/100 WBC (Bld) 0 % Low 1 - 4 % [facility] Erythrocyte distribution width (RBC) [Ratio] 12.2 % 11.8 - 14.4 % [facility] Hematocrit (Bld) [Volume fraction] 46.7 % 40.7 - 50.3 % [facility] Hemoglobin (Bld) [Mass/Vol] 15.5 g/dL 13.0 - 17.0 g/dL [facility] Immature granulocytes (Bld) [#/Vol] 0.05 10*3/uL [facility] Immature granulocytes/100 WBC (Bld) 0 % 0 [facility] Interpretation and review of laboratory results Abnormal [facility] Lymphocytes/100 WBC (Bld) 16 % Low 24 - 43 % [facility] Lymphocytes/100 WBC (Bld) 1.94 % [facility] MCH (RBC) [Entitic mass] 31.4 pg 25.2 - 33.5 pg [facility] MCHC (RBC) [Mass/Vol] 33.2 g/dL 28.4 - 34.8 g/dL [facility] MCV (RBC) [Entitic vol] 94.7 fL 82.6 - 102.9 fL [facility] Monocytes/100 WBC (Bld) 10 % 3 - 12 % [facility] Monocytes/100 WBC (Bld) 1.24 % High [facility] Neutrophils/100 WBC (Bld) 73 % High 36 - 65 % [facility] Nucleated RBC/100 WBC (Bld) [Ratio] 0.0 % 0.0 per 100 WBC [facility] Platelet mean volume (Bld) [Entitic vol] 10.8 fL 8.1 - 13.5 fL [facility] Platelets (Bld) [#/Vol] 243 10*3/uL [facility] RBC (Bld) [#/Vol] 4.93 10*6/uL 4.21 - 5.7 7 m/uL [facility] Segmented neutrophils/100 WBC (Bld) 8.89 % High [facility] WBC other (Bld) [#/Vol] 12.[address] [facility] CBC with Diffon 07-29-2023 Abs. Basophil 0.06 k/uL Normal 0.00-0.20 [facility] Comment on above: Performed By: #### T YS #### [address] [address] Splitter Operator: Kan Craig MD Abs. Eosinophil <0.03 Normal 0.00-0.44 [facility] Comment on above: Performed By: #### T YS #### [address] [address] Splitter Operator: Kan Craig MD Abs.Imm.Granulocyte 0.05 k/uL Normal 0.00-0.30 [facility] Comment on above: Performed By: #### T YS #### [address] [address] Splitter Operator: Kan Craig MD Abs.Neutrophil (Seg) 8.89 k/uL High 1.50-8.10 [facility] Comment on above: Performed By: #### T YS #### [address] [address] Splitter Operator: Kan Craig MD Basophils/100 WBC (Bld) 1 % Normal 0-2 [facility] Comment on above: Performed By: #### T YS #### [address] [address] Splitter Operator: Kan Craig MD Eosinophils/100 WBC (Bld) 0 % Low 1-4 [facility] Comment on above: Performed By: #### T YS #### [address] [address] Splitter Operator: Kan Craig MD Erythrocyte distribution width (RBC) [Ratio] 12.2 % Normal 11.8-14.4 [facility] Comment on above: Performed By: #### T YS #### [address] [address] Splitter Operator: Kan Craig MD Hematocrit (Bld) [Volume fraction] 46.7 % Normal 40.7-50.3 [facility] Comment on above: Performed By: #### T YS #### [address] [address] Splitter Operator: Kan Craig MD Hemoglobin (Bld) [Mass/Vol] 15.5 g/dL Normal 13.0-17.0 [facility] Comment on above: Performed By: #### T YS #### [address] [address] Splitter Operator: aKn Craig MD Immature granulocytes/100 WBC (Bld) 0 % Normal 0 [facility] Comment on above: Performed By: #### T YS #### [address] [address] Splitter Operator: Kan Craig MD Lymphocytes (Bld) [#/Vol] 1.94 10*3/uL Normal 1.10-3.70 [facility] Comment on above: Performed By: #### T YS #### [address] [address] Splitter Operator: Kan Craig MD Lymphocytes/100 WBC (Bld) 16 % Low 24-43 [facility] Comment on above: Performed By: #### T YS #### [address] [address] Splitter Operator: Kan Craig MD MCH (RBC) [Entitic mass] 31.4 pg Normal 25.2-33.5 [facility] Comment on above: Performed By: #### T YS #### [address] [place] [address] Splitter Operator: Kan Craig MD MCHC (RBC) [Mass/Vol] 33.2 g/dL Normal 28.4-34.8 [facility] Comment on above: Performed By: #### T YS #### [address] [address] Splitter Operator: Kan Craig MD MCV (RBC) [Entitic vol] 94.7 fL Normal 82.6-102.9 [facility] Comment on above: Performed By: #### T YS #### [address] [address] Splitter Operator: Kan Craig MD Monocytes (Bld) [#/Vol] 1.24 10*3/uL High 0.10-1.20 [facility] Comment on above: Performed By: #### T YS #### [address] [address] Splitter Operator: Kan Craig MD Monocytes/100 WBC (Bld) 10 % Normal 3-12 [facility] Comment on above: Performed By: #### T YS #### [address] [address] Splitter Operator: Kan Craig MD Neutrophil (Seg) 73 % High 36-65 [facility] Comment on above: Performed By: #### T YS #### [address] [address] Splitter Operator: Kan Craig MD NRBC Automated 0.0 per 100 WBC Normal 0.0 [facility] Comment on above: Performed By: #### T YS #### [address] [address] Splitter Operator: Kan Craig MD Platelet mean volume (Bld) [Entitic vol] 10.8 fL Normal 8.1-13.5 [facility] Comment on above: Performed By: #### T YS #### [facility] [address] [place] [address] Splitter Operator: Kan Craig MD Platelets (Bld) [#/Vol] 243 10*3/uL Normal 138-453 [facility] Comment on above: Performed By: #### T YS #### [facility] [address] [place] [address] Splitter Operator: Kan Craig MD RBC (Bld) [#/Vol] 4.93 10*6/uL Normal 4.21-5.77 [facility] Comment on above: Performed By: #### T YS #### [facility] [address] [place] [address] Splitter Operator: Kan Craig MD WBC (Bld) [#/Vol] 12.2 10*3/uL High 3.5-11.3 [facility] Comment on above: Performed By: #### T YS #### [facility] [address] [place] [address] Splitter Operator: Kan Craig MD Glucose,Whole Bloodon 2023 Glucose [Mass/Vol] 151 mg/dL High 75-110 [facility] Glucose [Mass/Vol] 174 mg/dL High 75-110 [facility] Glucose [Mass/Vol] 166 mg/dL High 75-110 [facility] Glucose [Mass/Vol] 139 mg/dL High 75-110 [facility] No Panel Informationon 07-29 Radiology Study observation (narrative) [facility] [email or web address] POC Glucose Fingerstickon Glucose [Mass/Vol] 151 mg/dL High 75 - 110 mg/dL [facility] [email or web address] Interpretation and review of laboratory results Abnormal [facility] [email or web address] Glucose [Mass/Vol] 174 mg/dL High 75 - 110 mg/dL [facility] Interpretation and review of laboratory results Abnormal [facility] Glucose [Mass/Vol] 166 mg/dL High 75 - 110 mg/dL [facility] Interpretation and review of laboratory results Abnormal [facility] Glucose [Mass/Vol] 139 mg/dL High 75 - 110 mg/dL [facility] Interpretation and review of laboratory results Abnormal [facility] Portable XR Chest AP single viewon 07-29-2023 No radiographic evidence of acute cardiopulmonary process. Postop findings. [facility] EXAMINATION: ONE XRAY VIEW OF THE CHEST 07/29/2023 10:57 am COMPARISON: CT chest from 07/27/2023. HISTORY: ORDERING SYSTEM PROVIDED HISTORY: resp eval; postop TECHNOLOGIST PROVIDED HISTORY: resp eval; postop FINDINGS: Overlying ECG monitor leads and neck collar; cervical nina and hardware. Cardiomediastinal shadow unchanged. Lungs/cp angles clear. Probable slight left basilar atelectasis. No consolidation or sizable pleural effusion. Bones unchanged. [facility] Johan Douglas MD - [...] evidence of acute cardiopulmonary process. Postop findings. [facility] Portable XR Chest AP single viewOrdered By: Johan Douglas on 07-29-2023 [facility] Work Phone: XR CERVICAL SPINE (2-3 VIEWS [...] See Watt MD 07/29/23 Final result Normal [facility] XR CHEST PORTABLEon 07-29-19 XR CHEST [...] Johan Douglas MD 07/29/23 Final result Normal [facility] XR Cervical spine 2 or 3 Vie wson 07-29-2023 Findings consistent with cervicothoracic spinal fusion and postoperative changes as detailed above. Underlying degenerative changes in the cervical spine. [facility] RIS CONSOLIDATED EXAMINATION: 3 XRAY VIEWS OF [...] Underlying degenerative changes in the cervical spine. [employer] XR Cervical spine 2 or 3 Vie wsOrdered By: See Watt on 07-29-2023 [facility] Work Phone: Calcium, Ionicon 07-28-2023 Calcium [Moles/Vol] 1.30 mmol/L Normal 1.13-1.33 [facility] Comment on above: Performed By: #### O HP, IOCAL ####[facility] [address] [place], [place] [id number] Lab Director: Kan Craig MD Calcium [Moles/Vol] 1.43 mmol/L High 1.13-1.33 [facility] Comment on above: Performed By: #### O HP, IOCAL, LACTIC ####[facility] [address] [place], [place] [id number] Lab Director: Kan Craig MD Calcium [Moles/Vol] 1.03 mmol/L Low 1.13-1.33 [facility] Comment on above: Performed By: #### I ZACH [facility] ####[address] [place] [address] Lab Director: Kan Craig MD Calcium, Ionizedon Calcium.ionized (Bld) [Moles/Vol] 1.30 mmol/L 1.13 - 1.33 mmol/L [facility] Calcium.ionized (Bld) [Moles/Vol] 1.43 mmol/L High 1.13 - 1.33 mmol/L [facility] Calcium.ionized (Bld) [Moles/Vol] 1.03 mmol/L Low 1.13 - 1.33 mmol/L [facility] FLUORO FOR SURGICAL PROCEDUR ESon 07-28-2023 FLUORO FOR SURGICAL PROCEDURES Radiology exam is complete. No Radiologist dictation. Please follow up with ordering provider. Final result Normal [facility] FLUORO FOR SURGICAL PROCEDURES Radiology exam is complete. No Radiologist dictation. Please follow up with ordering provider. Final result Normal [facility] Glucose (POC)on 07-28-2023 Glucose [Mass/Vol] 156 mg/dL High 74-100 [facility] Glucose,Whole Bloodon 2023 Glucose [Mass/Vol] 209 mg/dL High 75-110 [facility] Glucose [Mass/Vol] 200 mg/dL High 75-110 [facility] Glucose [Mass/Vol] 195 mg/dL High 75-110 [facility] Guidance-- during surgeryon 07-28-2023 Radiology exam is complete. No Radiologist dictation. Please follow up with ordering provider. [facility] Radiology exam is complete. No Radiologist dictation. Please follow up with ordering provider. [facility] Lactic Acidon 07-28-2023 Lactic Acid, Whole Blood 1.7 mmol/L 0.7 - 2.1 mmol/L [facility] Lactic Acid,Whole Bl 1.7 mmol/L Normal 0.7-2.1 [facility] Comment on above: Performed By: #### O HP, IOCAL, LACTIC ####[facility] [address] [place] [address] lab Director: aKn Craig MD No Panel Informationon 07-28 [facility] Interpretation and review of laboratory results Abnormal [facility] Interpretation and review of laboratory results Abnormal [facility] OPEN HEART PANELon 4 Arterial patency Wrist artery --pre arterial puncture INFORMATION NOT PROVIDED [facility] Carboxyhemoglobin (Bld) [Mass fraction] 1.3 % 0 - 5 % [facility] Comment on above: Reference Range: Non-Smokers 0-2% Average Smoker 2-4% Heavy Smoker <10% Chloride [Moles/Vol] 108 mmol/L 98 - 11 0 mmol/L [facility] Glucose [Mass/Vol] 206 mg/dL High 75 - 110 mg/dL [facility] HCO3 (Bld) [Moles/Vol] 22.1 mmol/L 22 - 27 mmol/L [facility] Hematocrit (Bld) [Volume fraction] 47.0 % 40.7 - 50.3 % [facility] Hemoglobin (Bld) [Mass/Vol] 15.4 g/dL [facility] Interpretation and review of laboratory results Abnormal [facility] Negative Base Excess, Art 2.7 mmol/L High 0.0 - 2.0 mmol/L [facility] Oxygen saturation in Blood 98.7 % 94 - 100 % [facility] Oxygen/Inspired gas Respiratory system --on ventilator 70 [facility] pCO2, Art, Temp Adj 36.5 32 - [address] [facility] pCO2, Arterial 40.2 [facility] pH, Art, Temp Adj 7.388 7.350 - 7.450 [facility] pH, Arterial 7.359 7.350 - 7.450 [facility] pO2, Art, Temp Adj 295.0 High [facility] pO2, Arterial 305.0 High [facility] Potassium [Moles/Vol] 4.0 mmol/L 3.6 - 5.0 mmol/L [facility] Sodium [Moles/Vol] 137 mmol/L 136 - 145 mmol/L [facility] Arterial patency Wrist artery --pre arterial puncture INFORMATION NOT PROVIDED [facility] Carboxyhemoglobin (Bld) [Mass fraction] 0.2 % 0 - 5 % [facility] Comment on above: Reference Range: Non-Smokers 0-2% Average Smoker 2-4% Heavy Smoker <10% Negative Base Excess, Art 3.3 mmol/L High 0.0 - 2.0 mmol/L [facility] Oxygen/Inspired gas Respiratory system --on ventilator 70% [facility] pCO2, Arterial 44.0 [facility] pH, Arterial 7.326 Low 7.350 - 7.450 [facility] pO2, Arterial 301.0 High [facility] Arterial patency Wrist artery --pre arterial puncture INFORMATION NOT PROVIDED [facility] Carboxyhemoglobin (Bld) [Mass fraction] 1.1 % 0 - 5 % [facility] Comment on above: Reference Range: Non-Smokers 0-2% Average Smoker 2-4% Heavy Smoker <10% Chloride [Moles/Vol] 116 mmol/L High 98 - 11 0 mmol/L [facility] Glucose [Mass/Vol] 150 mg/dL High 75 - 110 mg/dL [facility] HCO3 (Bld) [Moles/Vol] 19.7 mmol/L Low 22 - 27 mmol/L [facility] Hematocrit (Bld) [Volume fraction] 44.5 % 40.7 - 50.3 % [facility] Hemoglobin (Bld) [Mass/Vol] 14.5 g/dL [facility] Negative Base Excess, Art 5.1 mmol/L High 0.0 - 2.0 mmol/L [facility] Oxygen saturation in Blood 98.6 % 94 - 100 % [facility] Oxygen/Inspired gas Respiratory system --on ventilator 70 [facility] pCO2, Arterial 37.6 [facility] pH, Arterial 7.338 Low 7.350 - 7.450 [facility] pO2, Arterial 281.0 High [facility] Potassium [Moles/Vol] 2.9 mmol/L Critically low 3.6 - 5.0 mmol/L [facility] Sodium [Moles/Vol] 140 mmol/L 136 - 145 mmol/L [facility] Open Heart Panelon 4 Gabriel Test INFORMATION NOT PROVIDED [facility] Comment on above: Performed By: #### O HP, IOCAL ####[facility] [address] [place] [address] Lab Director: Kan Craig MD Performed By: #### O HP, IOCAL, LACTIC ####[facility] [address] [place], [place] [phone] Director: Kan Craig MD Body Temp. 35.0 Normal [facility] Comment on above: Performed By: #### O HP, IOCAL ####[facility] [address] [place] [address] Lab Director: Kan Craig MD Carboxy Hgb 1.3 % Normal 0-5 [facility] Comment on above: Result Comment: Reference Range: Non-Smokers 0-2% Average Smoker 2-4% Heavy Smoker <10% Performed By: #### O HP, IOCAL ####[facility] [address] [place], [place] [phone] Director: Kan Craig MD Chloride [Moles/Vol] 108 mmol/L Normal 98-110 [facility] Comment on above: Performed By: #### O HP, IOCAL ####[facility] [address] [place], [place] [phone] Director: Kan Craig MD FIO2 70 Normal [facility] Comment on above: Performed By: #### O HP, IOCAL ####[facility] [address] [place] [address] Lab Director: Kan Craig MD Glucose [Mass/Vol] 206 mg/dL High 75-110 [facility] Comment on above: Performed By: #### O HP, IOCAL ####[facility] [address] [place], [place] [phone] Director: Kan Craig MD HCO3 (Bld) [Moles/Vol] 22.1 mmol/L Normal 22-27 [facility] Comment on above: Performed By: #### O HP, IOCAL ####[facility] [address] [place], [place] [phone] Director: Kan Craig MD Hematocrit (Bld) [Volume fraction] 47.0 % Normal 40.7-50.3 [facility] Comment on above: Performed By: #### O HP, IOCAL ####[facility] [address] [place], [place] [phone] Director: Kan Craig MD Hemoglobin (Bld) [Mass/Vol] 15.4 g/dL Normal 13.0-17.0 [facility] Comment on above: Performed By: #### O HP, IOCAL ####[facility] Fcatuqopvvri0243 [place], [place] [phone] Director: Kan Craig MD Negative Base Excess 2.7 mmol/L High 0.0-2.0 [facility] Comment on above: Performed By: #### O HP, IOCAL ####[facility] [address] [place], [place] [phone] Director: Kan Craig MD Oxygen (Bld) [Partial pressure] 305.0 mm[Hg] High 75-95 [facility] Comment on above: Performed By: #### O HP, IOCAL ####[facility] [address] [place], [place] [phone] Director: Kan Craig MD Oxygen saturation in Blood 98.7 % Normal 94-100 [facility] Comment on above: Performed By: #### O HP, IOCAL ####[facility] [address] [place], [place] [phone] Director: Kan Craig MD pCO2 40.2 mmHg Normal 32-45 [facility] Comment on above: Performed By: #### O HP, IOCAL ####[facility] [address] [place], [place] [phone] Director: Kan Craig MD pCO2 Adj'd for Temp 36.5 Normal 32-45 [facility] Comment on above: Performed By: #### O HP, IOCAL ####[facility] [address] [place], [place] [phone] Director: Kan Craig MD pH (Bld) 7.359 [pH] Normal 7.350-7.450 [facility] Comment on above: Performed By: #### O HP, IOCAL ####[facility] [address] [place], [place] [phone] Director: Kan Craig MD pH Adjst'd for Temp. 7.388 Normal 7.350-7.450 [facility] Comment on above: Performed By: #### O HP, IOCAL ####[facility] [address] [place], [place] [phone] Director: Kan Craig MD pO2 Adjst'd for Temp 295.0 mmHg High 75-95 [facility] Comment on above: Performed By: #### O HP, IOCAL ####[facility] [address] [place], [place] [phone] Director: Kan Craig MD Potassium [Moles/Vol] 4.0 mmol/L Normal 3.6-5.0 [facility] Comment on above: Performed By: #### O HP, IOCAL ####[facility] [address] [place] [address] Lab Director: Kan rCaig MD Sodium [Moles/Vol] 137 mmol/L Normal 136-145 [facility] Comment on above: Performed By: #### O HP, IOCAL ####[facility] [address] [place] [address] Lab Director: Kan Craig MD Chloride [Moles/Vol] 111 mmol/L High 98-110 [facility] Comment on above: Performed By: #### O HP, IOCAL, LACTIC ####[facility] [address] [place] [address] Lab Director: Kan Craig MD Glucose [Mass/Vol] 165 mg/dL High 75-110 [facility] Comment on above: Performed By: #### O HP, IOCAL, LACTIC ####[facility] [address] [place] [address] Lab Director: Kan Craig MD HCO3 (Bld) [Moles/Vol] 22.3 mmol/L Normal 22-27 B ON [facility] Comment on above: Performed By: #### O HP, IOCAL, LACTIC ####[facility] [address] [place] [address] Lab Director: Kan Craig MD Hematocrit (Bld) [Volume fraction] 47.3 % Normal 40.7-50.3 [facility] Comment on above: Performed By: #### O HP, IOCAL, LACTIC ####[facility] [address] [place] [address] Lab Director: Kan Craig MD Hemoglobin (Bld) [Mass/Vol] 15.4 g/dL Normal 13.0-17.0 [facility] Comment on above: Performed By: #### O HP, IOCAL, LACTIC ####[facility] [address] [place] [address] Lab Director: Kan Craig MD Oxygen saturation in Blood 98.3 % Normal 94-100 [facility] Comment on above: Performed By: #### O HP, IOCAL, LACTIC ####[facility] [address] [place] [address] Lab Director: Kan Craig MD Potassium [Moles/Vol] 3.6 mmol/L Normal 3.6-5.0 [facility] Comment on above: Performed By: #### O HP, IOCAL, LACTIC ####[facility] [address] [place], [place] [address])[phone] Director: Kan Craig MD Sodium [Moles/Vol] 141 mmol/L Normal 136-145 [facility] Comment on above: Performed By: #### O HP, IOCAL, LACTIC ####[facility] [address] [place], [place] [address])[phone] Director: Kan Craig MD Carboxy Hgb 0.2 % Normal 0-5 [facility] Comment on above: Result Comment: Reference Range: Non-Smokers 0-2% Average Smoker 2-4% Heavy Smoker <10% Performed By: #### O HP, IOCAL, LACTIC ####[facility] [address]ifqwu[address] [place], [place] [address])[phone] Director: Kan Craig MD FIO2 70% Normal [facility] Comment on above: Performed By: #### O HP, IOCAL, LACTIC ####[facility] [address] [place] [address] Lab Director: Kan Craig MD Negative Base Excess 3.3 mmol/L High 0.0-2.0 [facility] Comment on above: Performed By: #### O HP, IOCAL, LACTIC ####[facility] [address] [place] [address] Lab Director: Kan Craig MD Oxygen (Bld) [Partial pressure] 301.0 mm[Hg] High 75-95 [facility] Comment on above: Performed By: #### O HP, IOCAL, LACTIC ####[facility] [address] [place], [place] [phone] Director: Kan Craig MD pCO2 44.0 mmHg Normal 32-45 [facility] Comment on above: Performed By: #### O HP, IOCAL, LACTIC ####[facility] [address]wrz[address] [place] [address] Lab Director: Kan Craig MD pH (Bld) 7.326 [pH] Low 7.350-7.450 [facility] Comment on above: Performed By: #### O HP, IOCAL, LACTIC ####[facility] [address]vtxxmw5687 [place] [address] Lab Director: Kan Craig MD Gabriel Test INFORMATION NOT PROVIDED Normal [facility] Comment on above: Performed By: #### I OCAL, OHP #### [facility] [address] [place] [address] Splitter Operator: Kan Craig MD Body Temp. 37.0 Normal [facility] Comment on above: Performed By: #### O HP, IOCAL, LACTIC ####[facility] [address]mscek[address]17 [place] [address] Lab Director: Kan Craig MD Performed By: #### I OCAL, OHP #### [facility] [address] [place] [id number] Splitter Operator: Kan Craig MD Carboxy Hgb 1.1 % Normal 0-5 [facility] Comment on above: Result Comment: Reference Range: Non-Smokers 0-2% Average Smoker 2-4% Heavy Smoker <10% Performed By: #### I OCAL, OHP #### [facility] [address] [place] [id number] Splitter Operator: Kan Craig MD Chloride [Moles/Vol] 116 mmol/L High 98-110 [facility] Comment on above: Performed By: #### I OCAL, OHP #### [facility] [address] [place] [id number] Splitter Operator: Kan Craig MD FIO2 70 [facility] Comment on above: Performed By: #### I OCAL, OHP #### [facility] [address] [place] [address] Splitter Operator: aKn Craig MD Glucose [Mass/Vol] 150 mg/dL High 75-110 [facility] Comment on above: Performed By: #### I OCAL, OHP #### [facility] [address] [place] [address] Splitter Operator: Kan Craig MD HCO3 (Bld) [Moles/Vol] 19.7 mmol/L Low 22-27 [facility] Comment on above: Performed By: #### I OCAL, OHP #### [address] [address] Splitter Operator: Kan Craig MD Hematocrit (Bld) [Volume fraction] 44.5 % Normal 40.7-50.3 [facility] Comment on above: Performed By: #### I OCAL, OHP #### [facility] [address] [place] [address] Splitter Operator: Kan Craig MD Hemoglobin (Bld) [Mass/Vol] 14.5 g/dL Normal 13.0-17.0 [facility] Comment on above: Performed By: #### I OCAL, OHP #### [facility] [address] [place] [address] Splitter Operator: Kan Craig MD Negative Base Excess 5.1 mmol/L High 0.0-2.0 [facility] Comment on above: Performed By: #### I OCAL, OHP #### [facility] [address] [place] [address] Splitter Operator: Kan Craig MD Oxygen (Bld) [Partial pressure] 281.0 mm[Hg] High 75-95 [facility] Comment on above: Performed By: #### I OCAL, OHP #### [facility] [address] [place] [address] Splitter Operator: Kan Craig MD Oxygen saturation in Blood 98.6 % Normal 94-100 [facility] Comment on above: Performed By: #### I OCAL, OHP #### [facility] [address] [place] [address] Splitter Operator: Kan Craig MD pCO2 37.6 mmHg Normal 32-45 [facility] Comment on above: Performed By: #### I OCAL, OHP #### [facility] [address] [place] [address] Splitter Operator: Kan Craig MD pH (Bld) 7.338 [pH] Low 7.350-7.450 [facility] Comment on above: Performed By: #### I OCBLADIMIR, OHP #### [facility] [address] [place] [address] Splitter Operator: Kan Craig MD Potassium [Moles/Vol] 2.9 mmol/L Critically low 3.6-5.0 [facility] Comment on above: Performed By: #### I OCBLADIMIR, OHP #### [facility] [address] [place] [address] Splitter Operator: Kan Craig MD Sodium [Moles/Vol] 140 mmol/L Normal 136-145 [facility] Comment on above: Performed By: #### I OCAL, OHP #### [facility] [address] [place] [address] Splitter Operator: Kan Craig MD POC Glucose Fingerstickon Glucose [Mass/Vol] 209 mg/dL High 75 - 110 mg/dL [facility] Interpretation and review of laboratory results Abnormal [facility] Glucose [Mass/Vol] 200 mg/dL High 75 - 110 mg/dL [facility] Interpretation and review of laboratory results Abnormal [facility] Glucose [Mass/Vol] 195 mg/dL High 75 - 110 mg/dL [facility] Interpretation and review of laboratory results Abnormal [facility] POCT Glucoseon 07-28-2023 Glucose [Mass/Vol] 156 mg/dL High 74 - 100 mg/dL [facility] Interpretation and review of laboratory results Abnormal [facility] POTASSIUM (POC)on 07-28-2023 Potassium [Moles/Vol] 3.9 mmol/L 3.5 - 4.5 mmol/L [facility] Potassium (POC)on 07-28-2023 Potassium [Moles/Vol] 3.9 mmol/L Normal 3.5-4.[address] [facility] [address] CHEST WO CONTRASTon 07-27 CT CHEST [...] HISTORY: Stenosis of cervical spine with myelopathy ([facility]) TECHNOLOGIST PROVIDED HISTORY: please include SAGITTAL [...] MD 07/27/23 Final result [facility] APTTon 07-10-2023 aPTT Coag (Bld) [Time] 28.5 s Normal 23.0-36.5 [facility] Comment on above: Result Comment: IV Heparin Therapy Range: 66.0-92.0 sec Performed By: #### B MP, PT, PTT, CDP ####[facility] [address] [place] [address] [phone] Director: Kan Craig MD Basic Metabolic Profon 07-10 Anion gap [Moles/Vol] 13 mmol/L Normal 9-16 [facility] Comment on above: Performed By: #### B MP, PT, PTT, CDP ####[facility] [address] [place] [address] [phone] Director: Kan Craig MD Calcium [Mass/Vol] 9.4 mg/dL Normal 8.6-10.4 [facility] Comment on above: Performed By: #### B MP, PT, PTT, CDP ####[facility] [address] [place] [address] [phone] Director: Kan Craig MD Chloride [Moles/Vol] 102 mmol/L Normal 98-107 [facility] Comment on above: Performed By: #### B MP, PT, PTT, CDP ####[facility] [address] [place] [address] Lab Director: Kan Craig MD CO2 [Moles/Vol] 24 mmol/L Normal 20-31 [facility] Comment on above: Performed By: #### B MP, PT, PTT, CDP ####[facility] [address] [place] [address] Lab Director: Kan Craig MD Creatinine [Mass/Vol] 1.0 mg/dL Normal 0.70-1.20 [facility] Comment on above: Performed By: #### B MP, PT, PTT, CDP ####[address] [address])[phone] Director: Kan Craig MD GFR/1.73 sq M.predicted among non-blacks MDRD (S/P/Bld) [Vol rate/Area] mL/min/{1.73_m2} Normal >60 [facility] Comment on above: Result Comment: These [...] By: #### B MP, PT, PTT, CDP ####[facility] [address] [place] [address] Lab Director: Kan Craig MD Glucose [Mass/Vol] 114 mg/dL High 74-99 [facility] Comment on above: Performed By: #### B MP, PT, PTT, CDP ####[facility] [address] [place] [address] Lab Director: Kan Craig MD Potassium [Moles/Vol] 4.2 mmol/L Normal 3.7-5.3 [facility] Comment on above: Performed By: #### B MP, PT, PTT, CDP ####[facility] [address] [place], [place] [address])[phone] Director: Kan Craig MD Sodium [Moles/Vol] 139 mmol/L Normal 136-145 [facility] Comment on above: Performed By: #### B MP, PT, PTT, CDP ####[facility] [address] [place], [place] [address])[phone] Director: Kan Craig MD Urea nitrogen [Mass/Vol] 21 mg/dL Normal 8-23 [facility] Comment on above: Performed By: #### B MP, PT, PTT, CDP ####[facility] [address] [place], [place] [address])[phone] Director: Kan Craig MD CBC with Diffon 07-10-2023 Abs. Basophil 0.11 k/uL Normal 0.00-0.20 [facility] Comment on above: Performed By: #### B MP, PT, PTT, CDP ####[facility] [address] [place] [address])[phone] Director: Kan Craig MD Abs.Imm.Granulocyte 0.05 k/uL Normal 0.00-0.30 [facility] Comment on above: Performed By: #### B MP, PT, PTT, CDP ####[facility] [address] [place] [address])[phone] Director: Kan Craig MD Abs.Neutrophil (Seg) 3.72 k/uL Normal 1.50-8.10 [facility] Comment on above: Performed By: #### B MP, PT, PTT, CDP ####[facility] [address] [place], [place] [address])[phone] Director: Kan Craig MD Basophils/100 WBC (Bld) 2 % Normal 0-2 [facility] Comment on above: Performed By: #### B MP, PT, PTT, CDP ####[address] [phone] Director: Kan Craig MD Eosinophils (Bld) [#/Vol] 0.16 10*3/uL Normal 0.00-0.44 [facility] Comment on above: Performed By: #### B MP, PT, PTT, CDP ####[address] [address])[phone] Director: Kan Craig MD Eosinophils/100 WBC (Bld) 3 % Normal 1-4 [facility] Comment on above: Performed By: #### B MP, PT, PTT, CDP ####[place], [place] [address])[phone] Director: Kan Craig MD Erythrocyte distribution width (RBC) [Ratio] 12.1 % Normal 11.8-14.4 [facility] Comment on above: Performed By: #### B MP, PT, PTT, CDP ####[place], [place] [address])[phone] Director: Kan Craig MD Hematocrit (Bld) [Volume fraction] 49.3 % Normal 40.7-50.3 [facility] Comment on above: Performed By: #### B MP, PT, PTT, CDP ####[place], [place] [address])[phone] Director: Kan Craig MD Hemoglobin (Bld) [Mass/Vol] 16.3 g/dL Normal 13.0-17.0 [facility] Comment on above: Performed By: #### B MP, PT, PTT, CDP ####[address] [address])[phone] Director: Kan Craig MD Immature granulocytes/100 WBC (Bld) 1 % High 0 [facility] Comment on above: Performed By: #### B MP, PT, PTT, CDP ####[facility] [address] [place] [address] [id number])[phone] Director: Kan Craig MD Lymphocytes (Bld) [#/Vol] 1.83 10*3/uL Normal 1.10-3.70 [facility] Comment on above: Performed By: #### B MP, PT, PTT, CDP ####[place], [place] [address])[phone] Director: Kan Craig MD Lymphocytes/100 WBC (Bld) 29 % Normal 24-43 [facility] Comment on above: Performed By: #### B MP, PT, PTT, CDP ####[place], [place] [address])[phone] Director: Kan Craig MD MCH (RBC) [Entitic mass] 31.7 pg Normal 25.2-33.5 [facility] Comment on above: Performed By: #### B MP, PT, PTT, CDP ####[address] [address])[phone] Director: Kan Craig MD MCHC (RBC) [Mass/Vol] 33.1 g/dL Normal 28.4-34.8 [facility] Comment on above: Performed By: #### B MP, PT, PTT, CDP ####[place], [place] [address])[phone] Director: Kan Craig MD MCV (RBC) [Entitic vol] 95.7 fL Normal 82.6-102.9 [facility] Comment on above: Performed By: #### B MP, PT, PTT, CDP ####[address] [phone])[phone] Director: Kan Craig MD Monocytes (Bld) [#/Vol] 0.41 10*3/uL Normal 0.10-1.20 [facility] Comment on above: Performed By: #### B MP, PT, PTT, CDP ####[facility] [address] [place], [place] [phone] Director: Kan Craig MD Monocytes/100 WBC (Bld) 7 % Normal 3-12 [facility] Comment on above: Performed By: #### B MP, PT, PTT, CDP ####[address] [phone] Director: Kan Craig MD Neutrophil (Seg) 58 % Normal 36-65 [facility] Comment on above: Performed By: #### B MP, PT, PTT, CDP ####[address] [phone])[phone] Director: Kan Craig MD NRBC Automated 0.0 per 100 WBC Normal 0.0 [facility] Comment on above: Performed By: #### B MP, PT, PTT, CDP ####[facility] [address] [place] [address] [id number])[phone] Director: Kan Craig MD Platelet mean volume (Bld) [Entitic vol] 10.5 fL Normal 8.1-13.5 [facility] Comment on above: Performed By: #### B MP, PT, PTT, CDP ####[address] [phone] Director: Kan Craig MD Platelets (Bld) [#/Vol] 225 10*3/uL Normal 138-453 [facility] Comment on above: Performed By: #### B MP, PT, PTT, CDP ####[facility] [address] [place], [place] [phone])[phone] Director: Kan Craig MD RBC (Bld) [#/Vol] 5.15 10*6/uL Normal 4.21-5.77 [facility] Comment on above: Performed By: #### B MP, PT, PTT, CDP ####[facility] [address] [place] [address] Lab Director: Kan Craig MD WBC (Bld) [#/Vol] 6.3 10*3/uL Normal 3.5-11.3 [facility] Comment on above: Performed By: #### B MP, PT, PTT, CDP ####[facility] [address] [place], [place] [phone])[phone] Director: Kan Craig MD PTon 07-10-2023 INR Coag (PPP) [Relative time] 1.0 {INR} [facility] Comment on above: Result Comment: Therapeutic Range: Moderate Anticoagulant Intensity: INR = 2.0-3.0 High Anticoagulant Intensity: INR = 2.5-3.5 Performed By: #### B MP, PT, PTT, CDP ####[facility] [address] [place] [address] Lab Director: Kan Craig MD PT Coag (PPP) [Time] 12.7 s Normal 11.7-14.9 [facility] Comment on above: Performed By: #### B MP, PT, PTT, CDP ####[facility] [address] [place] [address] [id number])[phone] Director: Kan Craig MD Type + Screenon 07-10-2023 Type + Screen Sample Expiration 07/31/2023,2359 Arm Band Number BE [id number] ABO/Rh(D) B POSITIVE Antibody Screen NEGATIVE [facility] Comment on above: Performed By: #### T YS #### [facility] [address] [place] [address] Splitter Operator: Kan Craig MD Performed By: #### T YS ####[address] [place], [place] [phone])[phone] Director: Kan Craig MD Urinalysis, Routineon 2023 Bilirubin, SemiQt,Ur Negative Normal NEG [facility] Comment on above: Performed By: #### U A #### [address] [address] Splitter Operator: Kan Craig MD Blood, Urine Negative Normal NEG [facility] Comment on above: Performed By: #### U A #### [address] [address] Splitter Operator: Kan Craig MD Clarity (U) Clear Normal CLEAR [facility] Comment on above: Performed By: #### U A #### [address] [address] Splitter Operator: Kan Craig MD Color (U) Yellow Normal YEL [facility] Comment on above: Performed By: #### U A #### [address] [address] Splitter Operator: Kan Craig MD Comment Microscopic exam not performed based on chemical results unless requested in Normal [facility] Comment on above: Result Comment: orig inal order. Performed By: #### U A #### [address] [address] Splitter Operator: Kan Craig MD Glucose Ql (U) 3+ mg/dL Abnormal NEG [facility] Comment on above: Performed By: #### U A #### [address] [address] Splitter Operator: Kan Craig MD Ketones Ql (U) Negative Normal NEG [facility] Comment on above: Performed By: #### U A #### [address] [address] Splitter Operator: Kan Craig MD Leukocyte esterase Test strip Ql (U) Negative Normal NEG [facility] Comment on above: Performed By: #### U A #### [address] [address] Splitter Operator: Kan Craig MD Nitrite,Ur Negative Normal NEG [facility] Comment on above: Performed By: #### U A #### [address] [address] Splitter Operator: Kan Craig MD PH,Ur 5.0 Normal 5.0-8.0 [facility] Comment on above: Performed By: #### U A #### [address] [address] Splitter Operator: Kan Craig MD Protein Ql (U) Negative Normal NEG [facility] Comment on above: Performed By: #### U A #### [address] [address] Splitter Operator: Kan Craig MD Spec. [place],Ur 1.029 Normal 1.005-1.030 [facility] Comment on above: Performed By: #### U A #### [address] [address] Splitter Operator: Kan Craig MD Urobilinogen,Ur Normal Normal 0.0-1.0 [facility] Comment on above: Performed By: #### U A #### [address] [address] Splitter Operator: Kan Craig MD CT CERVICAL SPINE WO [...] facet arthropathy, as described. Interpreted by: Johan oBwers MD Signed by: Johan Bowers MD 06/07/23 Final result [facility] Basic Metabolic Profon 05-19 Anion gap [Moles/Vol] 13 mmol/L Normal 9-17 [facility] Comment on above: Performed By: #### C BC, BMP #### [facility] [address] [place] [address] Splitter Operator: Julio Martínez MD #### GLYHGB #### [address] [phone] Splitter Operator: Kan Craig MD BUN/CRE Ratio 27 High 9-20 [facility] Comment on above: Performed By: #### C BC, BMP #### [facility] [address] [place] [address] Splitter Operator: Julio Martínez MD #### GLYHGB #### [address] [phone] Splitter Operator: Kan Craig MD Calcium [Mass/Vol] 9.7 mg/dL Normal 8.6-10.4 [facility] Comment on above: Performed By: #### C BC, BMP #### [facility] [address] [place] [address] Splitter Operator: Julio Martínez MD #### GLYHGB #### [address] [address] Splitter Operator: Kan Craig MD Chloride [Moles/Vol] 103 mmol/L Normal 98-107 [facility] Comment on above: Performed By: #### C BC, BMP #### [facility] [address] [place] [address] Splitter Operator: Julio Martínez MD #### GLYHGB #### [address] [phone] Splitter Operator: Kan Craig MD CO2 [Moles/Vol] 24 mmol/L Normal 20-31 [facility] Comment on above: Performed By: #### C BC, BMP #### [facility] [address] [place] [address] Splitter Operator: Julio Martínez MD #### GLYHGB #### [address] [address] Splitter Operator: Kan Craig MD Creatinine [Mass/Vol] 1.0 mg/dL Normal 0.7-1.2 [facility] Comment on above: Performed By: #### C BC, BMP #### [facility] [address] [place] [address] Splitter Operator: Julio Martínez MD #### GLYHGB #### [address] [address] Splitter Operator: Kan Craig MD GFR/1.73 sq M.predicted among non-blacks MDRD (S/P/Bld) [Vol rate/Area] mL/min/{1.73_m2} Normal >60 [facility] Comment on above: Result Comment: [...] Performed By: #### C BC, BMP #### [facility] [address] [place] [address] Splitter Operator: Julio Martínez MD #### GLYHGB #### [address] [phone] Splitter Operator: Kan Craig MD Glucose [Mass/Vol] 169 mg/dL High 70-99 [facility] Comment on above: Performed By: #### C TRAVIS, BMP #### [facility] [address] [place] [address] Splitter Operator: Julio Martínez MD #### GLYHGB #### [address] [phone] Splitter Operator: Kan Craig MD Potassium [Moles/Vol] 4.1 mmol/L Normal 3.7-5.3 [facility] Comment on above: Performed By: #### C TRAVIS, BMP #### [facility] [address] [place] [address] Splitter Operator: Julio Martínez MD #### GLYHGB #### [address] [address] Splitter Operator: Kan Craig MD Sodium [Moles/Vol] 140 mmol/L Normal 135-144 [facility] Comment on above: Performed By: #### C BC, BMP #### [facility] [place] [address] Splitter Operator: Julio Martínez MD #### GLYHGB #### [address] [address] Splitter Operator: Kan Craig MD Urea nitrogen [Mass/Vol] 27 mg/dL High 8-23 [facility] Comment on above: Performed By: #### C BC, BMP #### [facility] [address] [place] [address] Splitter Operator: Julio Martínez MD #### GLYHGB #### [address] [address] Splitter Operator: Kan Craig MD CBCon 05-19-2023 Erythrocyte distribution width (RBC) [Ratio] 13.6 % Normal 11.8-14.4 [facility] Comment on above: Performed By: #### C TRAVIS, BMP #### [facility] [address] [place] [address] Splitter Operator: Julio Martínez MD #### GLYHGB #### [address] [address] Splitter Operator: Kan Craig MD Hematocrit (Bld) [Volume fraction] 46.6 % Normal 40.7-50.3 [facility] Comment on above: Performed By: #### C TRAVIS, BMP #### [facility] [address] [place] [address] Splitter Operator: Julio Martínez MD #### GLYHGB #### [address] [address] Splitter Operator: aKn Craig MD Hemoglobin (Bld) [Mass/Vol] 15.6 g/dL Normal 13.0-17.0 [facility] Comment on above: Performed By: #### C BC, BMP #### [facility] [address] [place] [address] Splitter Operator: Julio Martínez MD #### GLYHGB #### [address] [address] Splitter Operator: Kan Craig MD MCH (RBC) [Entitic mass] 31.9 pg Normal 25.2-33.5 [facility] Comment on above: Performed By: #### C TRAVIS, BMP #### [facility] [address] [place] [address] Splitter Operator: Julio Martínez MD #### GLYHGB #### [address] [address] Splitter Operator: Kan Craig MD MCHC (RBC) [Mass/Vol] 33.5 g/dL Normal 28.4-34.8 [facility] Comment on above: Performed By: #### C TRAVIS, BMP #### [facility] [address] [place] [address] Splitter Operator: Julio Martínez MD #### GLYHGB #### [address] [address] Splitter Operator: Kan Craig MD MCV (RBC) [Entitic vol] 95.3 fL Normal 82.6-102.9 [facility] Comment on above: Performed By: #### C BC, BMP #### [facility] [address] [place] [address] Splitter Operator: Julio Martníez MD #### GLYHGB #### [address] [address] Splitter Operator: Kan Craig MD NRBC Automated 0.0 per 100 WBC Normal 0.0 [facility] Comment on above: Performed By: #### C BC, BMP #### [facility] [place] [address] Splitter Operator: Julio Martínze MD #### GLYHGB #### [address] [address] Splitter Operator: Kan Craig MD Platelet mean volume (Bld) [Entitic vol] 10.7 fL Normal 8.1-13.5 [facility] Comment on above: Performed By: #### C BC, BMP #### [facility] [address] [place] [address] Splitter Operator: Julio Martínez MD #### GLYHGB #### [address] [address] Splitter Operator: Kan Craig MD Platelets (Bld) [#/Vol] 255 10*3/uL Normal 138-453 [facility] Comment on above: Performed By: #### C BC, BMP #### [facility] [address] [place] [address] Splitter Operator: Julio Martínez MD #### GLYHGB #### [address] [address] Splitter Operator: Kan Craig MD RBC (Bld) [#/Vol] 4.89 10*6/uL Normal 4.21-5.77 [facility] Comment on above: Performed By: #### C BC, BMP #### [facility] [address] [place] [address] Splitter Operator: Julio Martínez MD #### GLYHGB #### [facility] [address] [place] [address] Splitter Operator: Kan Craig MD WBC (Bld) [#/Vol] 6.3 10*3/uL Normal 3.5-11.3 [facility] Comment on above: Performed By: #### C BC, BMP #### [facility] [address] [place] [address] Splitter Operator: Julio Martínez MD #### GLYHGB #### [address] [address] Splitter Operator: Kan Craig MD Hemoglobin A1Con 05-19-2023 Glucose [Mass/Vol] 151 mg/dL Normal [facility] Comment on above: Result Comment: The ADA and AACC recommend providing the estimated average glucose result to permit better patient understanding of their HBA1c result. Performed By: #### C TRAVIS, BMP #### [facility] [address] [place] [address] Splitter Operator: Julio Martínez MD #### GLYHGB #### [address] [address] Splitter Operator: Kan Craig MD HbA1c (Bld) [Mass fraction] 6.9 % High 4.0-6.0 [facility] Comment on above: Performed By: #### C BC, BMP #### [facility] [address] [place] [address] Splitter Operator: Julio Martínez MD #### GLYHGB #### [address] [address] Splitter Operator: Kan Craig MD MRI CERVICAL SPINE WO [...] Tonja Malone MD 05/17/23 Final result [facility] POINT OF CARE GLUCOSEon 05- Glucose [Mass/Vol] 159 mg/dL Critically high 74-106 [facility] Comment on above: Performed By: #### P OCGLUC #### [facility] [address] [address] [address] Cristal Goodwin POINT OF CARE GLUCOSEon 09-10 Glucose [Mass/Vol] 182 mg/dL Critically high 74-106 [facility] Comment on above: Performed By: #### P OCGLUC #### [facility] [address] [address] [address] Cristal Goodwin XR CSPINE 2_3 VIEWSon [...] by: WILL SOARES Date: 2022-09-15 10:31 Normal [facility] XR TSPINE 2 VIEWSon 09-16-19 XR TSPINE [...] by: WILL SOARES Date: 2022-09-15 10:29 Normal [facility] POINT OF CARE GLUCOSEon 08-11 Glucose [Mass/Vol] 120 mg/dL Critically high 74-106 T [facility] Comment on above: Performed By: #### P OCGLUC #### [facility] [address] [address] [address] Cristal Goodwin XR LSPINE MIN 4 [...] by: GUILLERMO AMADOR Date: 2022-08-10 07:[address] [facility] [address] LUNG CANCER SCREENINGon 0 08-03-2022 [...] by: WILL SOARES Date: 2022-08-03 15:51 Normal [facility] BASIC METABOLIC PANELon 07-2 BUN/CREATININE RATIO NOT APPLICABLE Normal - [facility] Comment on above: Order Comment: FASTI NG:YES FASTING: YES Performed By: #### 4 96, [address] #### [facility] [place] [address] Screen Maker: Gelacio Alonso MD Calcium [Mass/Vol] 9.1 mg/dL Normal 8.6-10.3 [facility] Comment on above: Order Comment: FASTI NG:YES FASTING: YES Performed By: #### 4 96, [address] #### [facility] [place] [address] Screen Maker: Gelacio Alonso MD Chloride [Moles/Vol] 106 mmol/L Normal 98-110 [facility] t Diagnostics Comment on above: Order Comment: FASTI NG:YES FASTING: YES Performed By: #### 4 96, [id number] #### [facility] [place] [address] Screen Maker: Gelacio Alonso MD CO2 [Moles/Vol] 26 mmol/L Normal 20-32 [facility] Comment on above: Order Comment: FASTI NG:YES FASTING: YES Performed By: #### 4 96, 75826 #### [facility] [place] [address] Screen Maker: Gelacio Alonso MD Creatinine [Mass/Vol] 0.93 mg/dL Normal 0.70-1.[address] [facility] [address] Diagn[facility] Comment on above: Order Comment: FASTI NG:YES FASTING: YES Performed By: #### 4 96, 78209 #### [facility] [place] [address] Screen Maker: Gelacio Alonso MD GFR/1.73 sq M.predicted among non-blacks MDRD (S/P/Bld) [Vol rate/Area] 93 mL/min/{1.73_m2} Normal > OR = 60 [facility] Comment on above: Order Comment: FASTI NG:YES FASTING: YES Result Comment: The eGFR is based on the CKD-EPI 2020 equation. To calculate the new eGFR from a previous Creatinine or Cystatin C result, go to https://www.kidney.org/professionals/ kdoqi/gfr%5Fcalculator Performed By: #### 4 96, 18614 #### [facility] [address], [address] [place] [address] Screen Maker: Gelacio Alonso MD Glucose [Mass/Vol] 136 mg/dL High 65-99 [facility] Comment on above: Order Comment: FASTI NG:YES FASTING: YES Result Comment: Fasting reference interval For someone without known diabetes, a glucose value >125 mg/dL indicates that they may have diabetes and this should be confirmed with a follow-up test. Performed By: #### 4 96, 47958 #### [facility] [address], [address] [place] [address] Screen Maker: Gelacio Alonso MD Potassium [Moles/Vol] 4.3 mmol/L Normal 3.5-5.[address] [facility] [address] Diagn[facility] Comment on above: Order Comment: FASTI NG:YES FASTING: YES Performed By: #### 4 96, 95217 #### [facility] [address], [address] [place] [address] Screen Maker: Gelacio Alonso MD Sodium [Moles/Vol] 140 mmol/L Normal 135-146 [facility] Comment on above: Order Comment: FASTI NG:YES FASTING: YES Performed By: #### 4 96, 66983 #### [facility] [address], [address] [place] [address] Screen Maker: Gelacio Alonso MD Urea nitrogen [Mass/Vol] 16 mg/dL Normal 7-25 [facility] Comment on above: Order Comment: FASTI NG:YES FASTING: YES Performed By: #### 4 96, 84269 #### [facility] [address], [address] [place] [address] Screen Maker: Gelacio Alonso MD HEMOGLOBIN A1con 12-30-2021 HEMOGLOBIN [...] for children. Performed By: #### 4 96, 39105 #### [facility] [address], [address] [place] [address] Screen Maker: Gelacio Alonso MD BASIC METABOLIC PANEL 12- BUN/CREATININE RATIO NOT APPLICABLE Normal 6-22 [facility] Comment on above: Order Comment: FASTI NG:YES FASTING: YES Performed By: #### 1 0165 #### [facility] [address], [address] [place] [address] Screen Maker: Gelacio Alonso MD Calcium [Mass/Vol] 9.3 mg/dL Normal 8.6-10.3 [facility] Comment on above: Order Comment: FASTI NG:YES FASTING: YES Performed By: #### 1 0165 #### [facility] [place] [address] Screen Maker: Gelacio Alonso MD Chloride [Moles/Vol] 109 mmol/L Normal 98-110 [facility] Comment on above: Order Comment: FASTI NG:YES FASTING: YES Performed By: #### 1 0165 #### [facility] [place] [address] Screen Maker: Gelacio Alonso MD CO2 [Moles/Vol] 26 mmol/L Normal 20-32 [facility] Comment on above: Order Comment: FASTI NG:YES FASTING: YES Performed By: #### 1 0165 #### [facility] [place] [address] Screen Maker: Gelacio Alonso MD Creatinine [Mass/Vol] 0.93 mg/dL Normal 0.70-1.[address] [facility] Comment on above: Order Comment: FASTI NG:YES FASTING: YES Result Comment: For patients >49 years of age, the reference limit for Creatinine is approximately 13% higher for people identified as -[place]. Performed By: #### 1 0165 #### [facility] [address], [address] [place] [address] Screen Maker: Gelacio Alonso MD eGFR NON-AFR. CYPRIOT 88 mL/min/1.73m2 Normal > OR = 60 [facility] Comment on above: Order Comment: FASTI NG:YES FASTING: YES Performed By: #### 1 0165 #### [facility] [address], [address] [place] [address] Screen Maker: Gelacio Alonso MD GFR/1.73 sq M.predicted among blacks MDRD (S/P/Bld) [Vol rate/Area] 102 mL/min/{1.73_m2} Normal > OR = 60 [facility] Comment on above: Order Comment: FASTI NG:YES FASTING: YES Performed By: #### 1 0165 #### [facility] [address], [address] [place] [address] Screen Maker: Gelacio Alonso MD Glucose [Mass/Vol] 122 mg/dL High 65-99 [facility] Comment on above: Order Comment: FASTI NG:YES FASTING: YES Result Comment: Fasting reference interval For someone without known diabetes, a glucose value between 100 and 125 mg/dL is consistent with prediabetes and should be confirmed with a follow-up test. Performed By: #### 1 0165 #### [facility] [address], [address] [place] [address] Screen Maker: Gelacio Alonso MD Potassium [Moles/Vol] 4.5 mmol/L Normal 3.5-5.[address] [facility] Comment on above: Order Comment: FASTI NG:YES FASTING: YES Performed By: #### 1 0165 #### [facility] [place] [address] Screen Maker: Gelacio Alonso MD Sodium [Moles/Vol] 141 mmol/L Normal 135-146 [facility] Comment on above: Order Comment: FASTI NG:YES FASTING: YES Performed By: #### 1 0165 #### [facility] of [address], [address] [place] [address] Screen Maker: Gelacio Alonso MD Urea nitrogen [Mass/Vol] 24 mg/dL Normal 7-25 [facility] Comment on above: Order Comment: FASTI NG:YES FASTING: YES Performed By: #### 1 0165 #### [facility] of [address], [address] [place] [address] Screen Maker: Gelacio Alonso MD [facility] 02-04-2021 Albumin [Mass/Vol] 4.3 g/dL Normal 3.6-5.1 [facility] Comment on above: Performed By: #### 1 0231, 7600, 5363 #### [facility] [place] [address] Screen Maker: Gelacio Alonso MD Albumin/Globulin [Mass ratio] 1.7 {ratio} Normal 1.0-2.5 [facility] Comment on above: Performed By: #### 1 0231, 7600, 5363 #### [facility] of [place] [address] Screen Maker: Gelacio Alonso MD ALP [Catalytic activity/Vol] 54 U/L Normal 35-144 [facility] Comment on above: Performed By: #### 1 0231, 7600, 5363 #### [facility] [place] [address] Screen Maker: Gelacio Alonso MD ALT [Catalytic activity/Vol] 19 U/L Normal 9-46 [facility] Comment on above: Performed By: #### 1 0231, 7600, 5363 #### [facility] [place] [address] Screen Maker: Gelacio Alonso MD AST [Catalytic activity/Vol] 19 U/L Normal 10-35 [facility] Comment on above: Performed By: #### 1 0231, 7600, 5363 #### [facility] of [address], [address] [place] [address] Screen Maker: Gelacio Alonso MD Bilirubin [Mass/Vol] 0.6 mg/dL Normal 0.2-1.2 [facility] Comment on above: Performed By: #### 1 0231, 7600, 5363 #### [facility] [address], [address] [place] [address] Screen Maker: Gelacio Alonso MD BUN/CREATININE RATIO NOT APPLICABLE Normal 6-22 [facility] Comment on above: Performed By: #### 1 023, 0, 5363 #### [facility] [place] [address] Screen Maker: Gelacio Alonso MD Calcium [Mass/Vol] 9.2 mg/dL Normal 8.6-10.3 [facility] Comment on above: Performed By: #### 1 023, 7599, 5363 #### [facility] [place] [address] Screen Maker: Gelacio Alonso MD Chloride [Moles/Vol] 106 mmol/L Normal 98-110 [facility] Comment on above: Performed By: #### 1 023, 7599, 5363 #### [facility] [place] [address] Screen Maker: Gelacio Alonso MD CO2 [Moles/Vol] 28 mmol/L Normal 20-32 [facility] Comment on above: Performed By: #### 1 023, 7599, 5363 #### [facility] [place] [address] Screen Maker: Gelacio Alonso MD Creatinine [Mass/Vol] 0.93 mg/dL Normal 0.70-1.[address] [facility] [address] Diagn[facility] Comment on above: Result Comment: For patients >49 years of age, the reference limit for Creatinine is approximately 13% higher for people identified as -[place]. Performed By: #### 1 023, 7599, 5363 #### [facility] [address], [address] [place] [address] Screen Maker: Gelacio Aolnso MD eGFR NON-AFR. CYPRIOT 88 mL/min/1.73m2 Normal > OR = 60 [facility] Comment on above: Performed By: #### 1 023, 7599, 5363 #### [facility] of [address], [address] [place] [address] Screen Maker: Gelacio Alonso MD GFR/1.73 sq M.predicted among blacks MDRD (S/P/Bld) [Vol rate/Area] 102 mL/min/{1.73_m2} Normal > OR = 60 [facility] Comment on above: Performed By: #### 1 023, 7599, 5363 #### [facility] [place] [address] Screen Maker: Gelacio Alonso MD Globulin (S) [Mass/Vol] 2.5 g/dL Normal 1.9-3.7 [facility] Comment on above: Performed By: #### 1 023, 7599, 5363 #### [facility] of [place] [address] Screen Maker: Gelacio Alonso MD Glucose [Mass/Vol] 83 mg/dL Normal 65-99 [facility] Comment on above: Result Comment: Fasting reference interval Performed By: #### 1 023, 7599, 5363 #### [facility] [place] [address] Screen Maker: Gelacio Alonso MD Potassium [Moles/Vol] 4.5 mmol/L Normal 3.5-5.[address] [facility] Comment on above: Performed By: #### 1 023, 7599, 5363 #### [facility] [place] [address] Screen Maker: Gelacio Alonso MD Protein [Mass/Vol] 6.8 g/dL Normal 6.1-8.1 [facility] Comment on above: Performed By: #### 1 023, 7599, 5363 #### [facility] [address], [address] [place] [address] Screen Maker: Gelacio Alonso MD Sodium [Moles/Vol] 141 mmol/L Normal 135-146 [facility] Comment on above: Performed By: #### 1 0231, 7600, 5363 #### [facility] [address], [address] [place] [address] Screen Maker: Gelacio Alonso MD Urea nitrogen [Mass/Vol] 20 mg/dL Normal 7-25 [facility] Comment on above: Performed By: #### 1 0231, 7600, 5363 #### [facility] [place] [address] Screen Maker: Gelacio Alonso MD LIPID PANEL, [facility] 08-2 Cholesterol [Mass/Vol] 138 mg/dL Normal <200 Qu [facility] Comment on above: Performed By: #### 1 0231, 0, 5363 #### [facility] [address], [address] [place] [address] Screen Maker: Gelacio Alonso MD Cholesterol in HDL [Mass/Vol] 49 mg/dL Normal > OR = 40 [facility] Comment on above: Performed By: #### 1 0231, 7600, 5363 #### [facility] [place] [address] Screen Maker: Gelacio Alonso MD Cholesterol in LDL [Mass/Vol] [...] LDL-C. Paul CHERRY et al. JULEE. 2013;310(19): 0905-7031 (http://education.Treatsie.GetSocial/faq/PES407) Performed By: #### 1 0231, 7600, 5363 #### [facility] [address], [address] [place] [address] Screen Maker: Gelacio Alonso MD Cholesterol.total/Chol esterol in HDL [Mass ratio] 2.8 {ratio} Normal <5.0 [facility] Comment on above: Performed By: #### 1 0231, 7600, 5363 #### [facility] [address], [address] [place] [address] Screen Maker: Gelacio Alonso MD NON HDL CHOLESTEROL 89 mg/dL (calc) Normal <130 [facility] Comment on above: Result Comment: For patients with diabetes plus 1 major ASCVD risk factor, treating to a non-HDL-C goal of <100 mg/dL (LDL-C of <70 mg/dL) is considered a therapeutic option. Performed By: #### 1 023, 0, 5363 #### [facility] [address], [address] [place] [address] Screen Maker: Gelacio Alonso MD Triglyceride [Mass/Vol] 79 mg/dL Normal <150 [facility] Comment on above: Performed By: #### 1 023, 0, 5363 #### [facility] [place] [address] Screen Maker: Gelacio Alonso MD PSA, TOTALon 02-04-2021 PSA, [...] 1 0231, 7600, 5363 #### [facility] [address], [address] [place] [address] Screen Maker: Gelacio Alonso MD Vital Signs Date Time Vital Sign Value Performing Clinician Indu machado 08-11-2023 10:59-0500 Body height 170.2 cm Day Obando APRN-SERVICE COUNTER CASHIER Work Phone: [facility] 08-11-2023 10:59-0500 Body mass index (BMI) [Ratio] 34.22 kg/m2 Day Obando TURRET LATHE OPERATOR-SERVICE COUNTER CASHIER Work Phone: [facility] [employer] 08-11-2023 10:59-0500 Body temperature 97.5 [degF] Day Obando TURRET LATHE OPERATOR-SERVICE COUNTER CASHIER Work Phone: [facility] [employer] 08-11-2023 10:59-0500 Body weight 99.11 kg Day Obando TURRET LATHE OPERATOR-SERVICE COUNTER CASHIER Work Phone: [facility] 08-11-2023 10:59-0500 Diastolic blood pressure 78 mm[Hg] Day Obando APRN-SERVICE COUNTER CASHIER Work Phone: [facility] 08-11-2023 10:59-0500 Heart rate 84 /min Day Obando APRN-SERVICE COUNTER CASHIER Work Phone: [facility] 08-11-2023 10:59-0500 SaO2% (BldA) [Mass fraction] 95 % Day Obando APRN-SERVICE COUNTER CASHIER Work Phone: [facility] 08-11-2023 10:59-0500 Systolic blood pressure 112 mm[Hg] Day Obando APRN-SERVICE COUNTER CASHIER Work Phone: [facility] [employer] 07-31-2023 12:42-0500 SaO2% (BldA) [Mass fraction] 92 % Mike Ahammad DO Work Phone: [facility] 07-31-2023 11:40-0500 Body temperature 98.6 [degF] Mike Ahammad DO Work Phone: [facility] [employer] 07-31-2023 11:40-0500 Diastolic blood pressure 64 mm[Hg] Mike Ahammad DO Work Phone: [facility] [employer] 07-31-2023 11:40-0500 Heart rate 115 /min Mike Ahammad DO Work Phone: [facility] [employer] 07-31-2023 11:40-0500 Respiratory rate 11 /min Mike Ahammad DO Work Phone: [facility] [employer] 07-31-2023 11:40-0500 Systolic blood pressure 102 mm[Hg] Mike Ahammad DO Work Phone: [facility] [employer] 07-28-2023 12:39-0500 Body temperature 35.0 Mike Ahammad DO Work Phone: [facility] [employer] 07-28-2023 11:00-0500 Body temperature 37.0 Mike Ahammad DO Work Phone: [facility] [employer] 07-28-2023 10:16-0500 Body temperature 37.0 Mike Ahammad DO Work Phone: [facility] [employer] 07-28-2023 06:21-0500 Body height 170.2 cm Mike Ahammad DO Work Phone: [facility] [employer] 07-28-2023 06:21-0500 Body mass index (BMI) [Ratio] 33.52 kg/m2 Mike Ahammad DO Work Phone: [facility] [employer] 07-28-2023 06:21-0500 Body weight 97.07 kg Mike Ahammad DO Work Phone: [facility] [employer] Encounters Encounter Date Encounter Type Care Provider Facility Start: 04-17-2024 End: 04-17-2024 ambulatory DAY OBANDO [facility] Start: 04-15-2024 End: 04-15-2024 Orders Only Day Obando TURRET LATHE OPERATOR-SERVICE COUNTER CASHIER Work Phone: [facility] Comment on above: Hypokalemia (Primary Dx) Start: 04-12-2024 End: 04-15-2024 Refill Day Shaw Obando TURRET LATHE OPERATOR-SERVICE COUNTER CASHIER Work Phone: [facility] Start: 03-25-2024 End: 03-25-2024 ambulatory Macey Monterroso MD Facility: [facility] Start: 03-13-2024 End: 03-14-2024 Refill Day Shaw Obando TURRET LATHE OPERATOR-SERVICE COUNTER CASHIER Work Phone: [facility] Start: 03-04-2024 End: 03-04-2024 ambulatory Macey Monterroso MD Facility:[facility] Start: 01-08-2024 End: 01-08-2024 ambulatory Macey Monterroso MD Facility:[facility] Start: 12-28-2023 End: 12-28-2023 ambulatory [facility] Start: 12-01-2023 End: 12-01-2023 ambulatory [facility] Start: 11-27-2023 End: 11-29-[address] [facility] Start: 11-27-2023 End: 11-29-2023 Subsequent hospital visit by physician Nikki Denton Xr [facility] Comment on above: Lumbar disc disease with radiculopathy Start: 11-23-2023 End: 11-25-2023 Subsequent hospital visit by physician Keke Mckeon Dr Room 4 [facility] Comment on above: 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) Start: 11-23-2023 End: 11-25-2023 ambulatory [facility] Start: 11-13-2023 End: 12-11-2023 ambulatory [facility] Start: 11-01-2023 End: 11-01-2023 ambulatory [facility] Start: 10-17-2023 End: 11-11-2023 ambulatory [facility] Start: 10-12-2023 End: 11-11-2023 ambulatory [facility] Start: 10-05-2023 End: 10-11-2023 ambulatory [facility] Start: 09-26-2023 End: 10-11-2023 [facility] Start: 09-22-2023 End: 09-24-2023 ambulatory BETHANY Rashid [facility] Start: 09-11-2023 End: 10-11-2023 ambulatory [facility] Start: 08-25-2023 Refill Day Obando TURRET LATHE OPERATOR-SERVICE COUNTER CASHIER Work Phone: [facility] Start: 08-22-2023 Orders Only Day Obando TURRET LATHE OPERATOR-SERVICE COUNTER CASHIER Work Phone: [facility] Start: 08-14-2023 End: 09-11-2023 [facility] Start: 08-11-2023 End: 08-11-2023 Transitional care manage srvc 14 day discharge Day Obnado TURRET LATHE OPERATOR-SERVICE COUNTER CASHIER Work Phone: [facility] Comment on above: Type 2 diabetes ricardo itus without complication, without long- term current use of insulin ([facility]) (Primary Dx); Essential hypertension Start: 08-11-2023 End: 08-11-2023 ambulatory [facility] Start: 08-07-2023 End: 08-11-2023 ambulatory [facility] Start: 07-28-2023 End: 07-31-2023 Evaluation and management of inpatient Mike Powelld DO Work Phone: [facility] Neuro Comment on above: 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) (Primary Dx) Start: 07-27-2023 End: 07-29-2023 ambulatory [facility] Start: 07-10-2023 End: [facility] Start: 07-10-2023 End: 07-14-2023 Encounter for other preprocedural examination [facility] Start: 06-29-2023 End: 06-29-2023 ambulatory DAY OBANDO [facility] Start: 06-14-2023 Refill Day Obando TURRET LATHE OPERATOR-SERVICE COUNTER CASHIER Work Phone: [facility] Start: 06-07-2023 End: 06-09-[address] [facility] Start: 05-19-2023 End: 05-24-2023 ambulatory DAY Shaw [facility] Start: 05-15-2023 End: 05-17-2023 ambulatory CUAUHTEMOC [facility] Start: 12-08-2022 ambulatory NARENDRANATH LAKSHMIPATHY . [...] Adult depression scr eening assessment Day Obando TURRET LATHE OPERATOR-SERVICE COUNTER CASHIER Work Phone: Start: 11-27-2023 Radex spine lumbosac ral only bending 2/3 views Mike Ahammad DO Work Phone: Start: 08-11-2023 Follow-up visit Follow-up DAY OBANDO Start: 08-11-2023 Adult depression scr eening assessment Day Obando TURRET LATHE OPERATOR-SERVICE COUNTER CASHIER Work Phone: Start: 07-31-2023 Glucose blood reagen [...] Adult depression scr eening assessment Day Obando TURRET LATHE OPERATOR-SERVICE COUNTER CASHIER Work Phone: Plan of Treatment Date Care Activity Detail Author Start: 01-11-2026 Screening for malign ant neoplasm of colon Colon Cancer Screening 3 Year Cologuard [facility] Start: 03-03-2025 DTaP,Tdap and Td Vaccines (4 - Td or Tdap) DTaP,Tdap and Td Vaccines (4 - Td or Tdap) [facility] Start: 03-03-2025 DTaP/Tdap/Td vaccine (4 - Td or Tdap) DTaP/Tdap/Td vaccine (4 - Td or Tdap) [facility] Start: 12-27-2024 Adult BMI Screening Adult BMI Screen ing [facility] Start: 12-27-2024 Depression Screening Depression Scre [facility] Start: 12-27-2024 Fall Risk Screening Fall Risk Screen ing [facility] Start: 12-27-2024 Tobacco Screening Tobacco Screening [facility] Start: 08-10-2024 Adult BMI Screening Adult BMI Screen ing [facility] Start: 08-10-2024 Depression Screening Depression Scre ening [facility] Start: 08-10-2024 Tobacco Screening Tobacco Screening [facility] Start: 07-31-2024 GFR test (Diabetes, CKD 3-4, OR last GFR 15-59) GFR test (Diabetes, CKD 3-4, OR last GFR 15-59) [facility] Start: 07-31-2024 Lipid panel Lipids [facility] Start: 07-29-2024 Hemoglobin A1c measurement A1C test (Diabetic or Prediabetic) [facility] Start: 03-30-2024 Adult BMI Screening Adult BMI Screen ing [facility] Start: 03-30-2024 Depression Screening Depression Scre ening [facility] Start: 03-30-2024 Tobacco Screening Tobacco Screening [facility] Start: 02-19-2024 End: 02-19-2024 Patient encounter procedure 02/19/2024 1:30 PM EDT Office Visit [facility] [address] [place], [place] [address] Ahacolt, Mike, DO [address] [facility] [address] [place] [address] Scoli & Flex ext xrays [facility] Comment on above: Scoli & Flex ext xra ys Start: 02-11-2024 COVID-19 Vaccine ( season) COVID-19 Vaccine ( season) [facility] Start: 02-11-2024 COVID-19 Vaccine ( season) COVID-19 Vaccine ( season) [facility] Start: 02-11-2024 Influenza vaccination Influenza Vacc ine [facility] Start: 01-26-2024 Abdominal aortic aneurysm screening Abdominal Aortic Aneurysm (AAA) Screen [facility] Start: 01-11-2024 Influenza vaccination Flu vacc ine (Season Ended) [facility] Start: 11-27-2023 End: 11-27-2023 Patient encounter procedure 11/27/2023 11:00 AM EDT Office Visit [facility] [address], [place] [address] Mike Townsend, DO [address] [place] [address] Print PT OT [facility] Comment on above: Print PT OT Start: 11-10-2023 End: 11-10-2023 Patient encounter procedure 11/10/2023 8:40 AM EDT Office Visit [facility] [address] [place] [address] Day Obando, TURRET LATHE OPERATOR-SERVICE COUNTER CASHIER [address] [place] [address] [facility] Start: 09-25-2023 End: 09-25-2023 Patient encounter procedure 09/25/2023 11:00 AM EDT Office Visit [facility] [address], [place] [id number] Mike Townsend DO [address] [place] [id number] 8 wk post op [facility] Comment on above: 8 wk post op Start: 08-14-2023 End: 08-14-2023 Patient encounter procedure 08/14/2023 9:30 AM EST Office Visit [facility] [address], [place] [id number] Bethany Hwang, TURRET LATHE OPERATOR - SERVICE COUNTER CASHIER [address] [facility] [address] [place], [place] [id number] 2 wk post op-ahammad [facility] Comment on above: 2 wk post op-ahammad Start: 06-29-2023 End: 06-29-2023 Patient encounter procedure 06/29/2023 9:00 AM EST Office Visit [facility] Internal Medicine - Family Medicine [address] [place] [address] Day Obando, TURRET LATHE OPERATOR-SERVICE COUNTER CASHIER [address] [place] [address] [facility] Internal Medicine - Family Medicine Start: 02-10-2023 COVID-19 Vaccine ( season) COVID-19 Vaccine ( season) [facility] Start: 02-10-2023 Influenza vaccination Influenza Vacc ine [facility] Start: 01-10-2023 Influenza vaccination Flu vaccine (# 1) [facility] Start: 2019 Respiratory Syncytia l Virus (RSV) or age 60 yrs+ (1 - 1-dose 60+ series) Respiratory Syncytial Virus (RSV) or age 60 yrs+ (1 - 1-dose 60+ series) [facility] Start: 2009 Administration of varicella zoster vaccine Zoster (Shingles) Vaccine (1 of 2) [facility] Start: 2009 Screening for malign ant neoplasm of lung Low dose CT lung screening &/or counseling [facility] [email or web address] [facility] Start: 2009 Shingles vaccine (1 of 2) Shingles vaccine (1 of 2) [facility] Start: 01-26-2004 Screening for malign ant neoplasm of colon [facility] Start: 1977 Adult BMI Follow Up Plan Adult BMI Follow Up Plan [facility] Start: 1977 Diabetic foot examination Diabetic Foot Exam [facility] Start: 1977 Glaucoma screening Diabetic retinal exam [facility] Start: 1977 Hepatitis C screening Hepatitis C sc reen [facility] [email or web address] [facility] Start: 1977 Urine screening for protein Diabetic Alb to Cr ratio (uACR) test [facility] [email or web address] [facility] Start: 1974 HIV screening HIV screen [facility] [employer] Start: 1971 Depression Screen Depression Screen [facility] Start: 1969 Diabetic foot examination Diabetic foot exam [facility] Start: 1965 Pneumococcal 0-64 ye ars Vaccine (1 - PCV) Pneumococcal 0-64 years Vaccine (1 - PCV) [facility] Start: 1965 Pneumococcal 0-64 ye ars Vaccine (1 of 2 - PCV) Pneumococcal 0-64 years Vaccine (1 of 2 - PCV) [facility] Start: 1959 COVID-19 Vaccine (#1) COVID-19 Vacci ne (#1) [facility] Start: 1959 Glaucoma screening Diabetic Op hthalmology Exam [facility] Start: 1959 Urine screening for protein Urine Microalbumin [facility] End: 04-15-2025 Basic metabolic 2000 panel - Serum or Plasma Basic Metabolic Panel Lab Routine Hypokalemia 1 Occurrences starting 04/15/2024 until 04/15/2025 [facility] Work Phone: Comment on above: 1 Occurrences starti ng 04/15/2024 until 04/15/2025 End: 07-28-2023 Glucose [Mass/volume] in Serum or Plasma [facility] Comment on above: 4X Daily (AC & HS) u ntil discontinued starting 07/28/2023 One Time for 1 Occur rences starting 07/28/2023 until 07/28/2023 As Needed until disc ontinued starting 07/28/2023 Oxygen therapy [[facility] Data Set] Initiate Oxygen Therapy Protocol Respiratory Care Routine As Needed until discontinued starting 07/28/2023 [employer] Comment on above: As Needed until disc ontinued starting 07/28/2023 Spirometry panel Incentive jerome metry Respiratory Care Routine Every 2hr while awake until discontinued starting 07/28/2023 [employer] Comment on above: Every 2hr while awak e until discontinued starting 07/28/2023 Spirometry panel Incentive jerome metry RT Respiratory Care Routine Every 2hr while awake until discontinued starting 07/29/2023 [employer] Comment on above: Every 2hr while awak e until discontinued starting 07/29/2023 End: 11-23-2023 XR Cervical spine 2 or 3 Views [employer] Work Phone: Comment on above: 1 Occurrences starti ng 11/23/2023 until 11/23/2023 Immunizations Immunization Date Immunization Notes Care Provider Gilma cantu 03-03-2015 tetanus toxoid, redu latricia diphtheria toxoid, and acellular pertussis vaccine, adsorbed Day Topher TURRET LATHE OPERATOR-SERVICE COUNTER CASHIER Work Phone: [facility] 05-26-2013 tetanus toxoid, redu latricia diphtheria toxoid, and acellular pertussis vaccine, adsorbed Day Topher TURRET LATHE OPERATOR-SERVICE COUNTER CASHIER Work Phone: [facility] [employer] 07-05-2011 tetanus toxoid, redu latricia diphtheria toxoid, and acellular pertussis vaccine, adsorbed Day Obando TURRET LATHE OPERATOR-SERVICE COUNTER CASHIER Work Phone: [facility] Work Phone: Payers Date Payer Category Payer Managed Care Other (unspecified) [employer] [place] [id number] 2022 Private Health Insurance [facility] [employer] [id number] 2022-Present [phone] [address] [address] [place] [address] [id number] 2022 Unknown 1959 Medicare [id number] 1959 Unknown [id number] 1959 Unknown [id number] 1959 Unknown [id number] 2.16.840.1.136290.3.579. 2.593 1959 Unknown [id number] 2.16.840.1.442580.3.579. 2.593 1959 Unknown [id number] 2.16.840.1.575118.3.579. 2.593 1959 Unknown [id number] 2..840.1.442791.3.579. 2.593 1959 Unknown [id number] 2.16.840.1.465927.3.579. 2.593 1959 Unknown [id number] 2..840.1.688658.3.579. 2.593 1959 Unknown [id number] 2..840.1.850395.3.579. 2.59 1959 Unknown [id number] 2..840.1.954926.3.579. 2.593 1959 Unknown [id number] 2.840.1.817764.3.579. 2.59 1959 Unknown [id number] 2..840.1.795126.3.579. 2.593 1959 Unknown [id number] 2..840.1.791412.3.579. 2.593 1959 Unknown [id number] 2..840.1.669517.3.579. 2.593 1959 Unknown [id number] 2.840.1.793958.3.579. 2.59 1959 Unknown [id number] 2..840.1.909390.3.579. 2.593 1959 Unknown [id number] 2.16.840.1.258061.3.579. 2.177 1959 Unknown [id number] 2.16.840.1.841111.3.579. 2.173 1959 Unknown [id number] 2..840.1.397165.3.579. 2.173 1959 Unknown [id number] 2.16.840.1.716010.3.579. 2.173 1959 Unknown [id number] 2.16.840.1.912785.3.579. 2.173 1959 Unknown [id number] 2.16.840.1.149113.3.579. 2.173 1959 Unknown [id number] 2.16.840.1.157929.3.579. 2.1286 1959 Unknown [id number] 2.16.840.1.509767.3.579. 2.1286 1959 Unknown [id number] 2.16.840.1.966637.3.579. 2.128 1959 Unknown [id number] 2.16.840.1.214649.3.579. 2.1285 1959 Unknown [id number] 2.16.840.1.265109.3.579. 2.128 1959 Unknown [id number] 2.16.840.1.469222.3.579. 2.175 1959 Unknown [id number] 2.16.840.1.670848.3.579. 2.175 1959 Unknown [id number] 2.16.840.1.172897.3.579. 2.175 1959 Unknown [id number] 2.16.840.1.591094.3.579. 2.175 1959 Unknown [id number] 2.16.840.1.356081.3.579. 2.175 1959 Unknown [id number] 2.16.840.1.053326.3.579. 2.175 1959 Unknown [id number] 2.16.840.1.170318.3.579. 2.196 1959 Unknown [id number] 2.16.840.1.060093.3.579. 2.196 1959 Unknown [id number] 2.16.840.1.340672.3.579. 2.196 1959 Unknown [id number] 2.16.840.1.660269.3.579. 2.1286 1959 Unknown [id number] 2.16.840.1.160649.3.579. 2.128 1959 Unknown [id number] 2.16.840.1.680686.3.579. 2.1286 1959 Unknown [id number] 2.16.840.1.111909.3.579. 2.1285 1959 Unknown [id number] 2.16.840.1.302268.3.579. 2.1285 1959 Unknown [id number] 2.16.840.1.469216.3.579. 2.1285 1959 Unknown [id number] 2.16.840.1.346136.3.579. 2.128 1959 Unknown [id number] 2.16.840.1.399314.3.579. 2.1285 1959 Unknown [id number] 2.16.840.1.705534.3.579. 2.1286 Social History Date Type Detail Facility Start: 07-07-2022 End: 11-01-2023 Tobacco smoking status NHIS Ex-smoker [facility] Start: 06-18-1998 End: 06-18-2018 History of tobacco use Current smoker [facility] Start: 06-18-1998 End: 06-18-2018 History of tobacco use Cigarette Smoker [facility] Start: 07-23-2020 End: 07-07-2022 Cigarettes smoked current (pack per day) - Reported 1.5 [facility] Start: 07-07-2022 End: 11-01-2023 Tobacco use and exposure Smokeless tobacco non-user [facility] Start: 03-30-2023 End: 12-28-2023 Alcohol intake Current non-drinker of alcohol (finding) [facility] [employer] Start: 09-17-2018 End: 07-23-2020 Alcohol Use Disorder Identification Test - Consumption [AUDIT-C] [facility] Frequency of Alcohol Consumption Never [facility] Start: 1960 Sex Assigned At Not on file [facility] Start: 07-31-2023 End: 08-14-2023 Alcohol intake Lifetime non-drinker (finding) [employer] Has the [employer], Breather, or water SpecifiedBy threatened to shut off services in your home in past 12Mo No [employer] (I/We) worried whe er (my/our) food would run out before (I/we) got money to buy more. Never true [employer] Start: 01-15-2015 Sex Male (finding) [facility] Medical Equipment Procedure Code Equipment Code Equipment Origin al Text Equipment Identifier Dates Brng Tib [id number] mm 0d Kn Ant - [id number] Start: 03-27-2019 Cmnt Bn Bio 40gm Rpl [id number] - [id number] Start: 03-27-2019 Cmpt Ptlr Thn 31 mm 3 Pg Kn Ser - [id number] Start: 03-27-2019 Impl Spine Chapin Symphony 4.0mm 240mm - [id number] Start: 07-28-2023 Screw Spnl Polya x 5.5x30 Mm Oct For 4 Mm Chapin Ns Sym - [id number] Start: 07-28-2023 Screw Spnl Polya x 5.5x32 Mm Oct For 4 Mm Chapin Ns Sym - [id number] Start: 07-28-2023 Screw Spnl 3.5x1 4mm Symphony - [id number] Start: 07-28-2023 Screw Spinal F/Symphony Oct System - [id number] Start: 07-28-2023 Cmpt Fem Kn Lt 72.5mm Cr Cmnt - [id number] Start: 03-27-2019 Ty Tib 75mm Cocr Kn I Beam - [id number] Start: 03-27-2019 Goals Date Patient Goal Desired Activity /State Personal health goal Comment on above: Formatting of this n ote might be different from the original. Evaluation of progress towards goal: Maximize work w pt at discharge to [facility] knee Clinical Notes 01-20-2022 to 04-12-2024 Telephone Encounter - DINORA Contreras - 04/12/2024 6:20 AM EDTTelephone Encounter - DINORA Contreras - 04/12/2024 6:20 AM EDTBDINORA Rodriguez - 08/11/2023 10:30 AM EST Note Date & Type Note Facility 04-12-2024 Miscellaneous Notes It has been since Jul since his potassium was checked so I sent BMP to [facility] - he can get this drawn at his convenience. documented in this encounter [facility] 04-12-2024 Telephone encounter Note It has been since Jul since his potassium was checked so I sent BMP to [facility] - he can get this drawn at his convenience. [facility] 08-11-2023 History of Present illness Narrative Images [...] and headaches. Objective Physical Exam Vitals reviewed. Research Compliance Specialist present: Here with spouse. Constitutional: General: [...] complication, without long-term current use of insulin ([facility]) Essential hypertension Other orders - metoprolol [...] Contreras 08/14/23 1023 documented in this encounter [facility] 07-31-2023 Hospital course Narrative Images from the original note were not included. Department of Neurosurgery Discharge Summary PATIENT NAME: Kedar Ocasio BIRTHDATE: 1960 DATE: 07/31/2023 PRIMARY CARE PHYSICIAN: Day Obando APRN - CNP DISCHARGE DATE: 07/31/2023 DISCHARGE DIAGNOSIS: Stenosis of cervical spine with myelopathy Patient Active Problem List Diagnosis Code Stenosis of cervical spine with myelopathy ([facility]) M48.02, G99.2 Primary hypertension I10 Type 2 diabetes mellitus ([facility]) E11.9 DISPOSITION: Home PROCEDURES: Posterior lateral [...] as: KLOR-CON Vitamin D3 50 MCG (1999 [place]) Caps STOP taking these medications HYDROcodone-acetaminophen 5-325 [...] Your Medications These medications were sent to [place] [id number] [facility] - [phone] - F [phone] [place] [address] metoprolol tartrate 25 MG tablet oxyCODONE-acetaminophen 5-325 MG per tablet Diet: ADULT DIET; Regular; 4 carb choices (60 gm/meal) diet as tolerated Activity: Provided in AVS Wound Care: Daily and as needed Follow-up: in the NSG clinic as shown in AVS Time Spent for discharge: 30 minutes JULIETTE Dominique CNP 07/31/2023, 1:19 PM documented in this encounter [facility] 07-31-2023 History of Present illness Narrative Physical Therapy Facility/Department: [address] NEURO Physical Therapy Progress Note Name: [...] from the original note were not included. [facility] Internal Medicine Teaching Residency Program Inpatient Daily Progress Note Patient: Kedar Ocasio Date of : 1960 Acct: [id number] Room: Admit date: 07/28/2023 Today's date: 07/31/23 [...] medical standpoint Soraida Frias PGY-3 Internal Medicine [place], [place] 11:02 AM 07/31/2023 Attestation and add [...] documented by the [place] [address]. Answering Service: Images from the original note [...] X.Serafin Palomino DO Neurosurgeon Neurosurgical oncologist Office: [phone] Cell: [phone] Images from the original note were not included. [facility] Internal Medicine Teaching Residency Program Inpatient Daily Progress Note Patient: Kedar Ocasio Date of : 1960 Acct: [id number] Room: [address] [place] [address] Admit date: 07/28/2023 Today's date: 07/30/23 Number [...] OT on board Discharge Planning / SW: digital content manager discharge planning Terri Ayala MD Internal Medicine Resident, PGY-1 [facility], [place], [place] 07/30/2023, 7:00 AM Attestation and add [...] the resident. Prgressing satisfactorily [place] [address]. Answering Service: [facility] [place] Shift date: 07/29/2023 Shift day: Monday Shift # 2 Room # 0101/0101-01 Name: Kedar Ocasio Yarsanism: Place of episcopal: Referral: Routine Visit Admit Date & Time: 07/28/2023 5:37 AM Assessment: Kedar Ocasio is a 63 y.o. male in the hospital . Patient had family support present in room and appeared calm and coping. Intervention: Marketing Operations Associate introduced self and title as signal tower director. Patient did not appear to mind signal tower director presence and engaged in conversation. Mental Retardation Aide provided a supportive presence through active listening and words of affirmation. Outcome: Patient appeared receptive to signal tower director visit. Plan: Chaplains will remain available to offer spiritual and emotional support as needed. . [facility] [phone] Physical Therapy Facility/Department: [address] NEURO Physical Therapy Initial Assessment Name: [...] transfers CG+1, gait 120' CG+1, forward posture, Magnolia collar. Body Structures, Functions, Activity Limitations Requiring [...] d/t LE weakness/pain) Transfer Assistance: Independent Active Chemical Plant Operator Supervisor: Yes Vision/Hearing Vision Vision: Impaired Vision Exceptions: [...] Fair;- Comments: with rwalker Exercise Treatment: ankle [id number] A/AROM Exercises: AAROM B hips, limited by [...] X.Serafin Palomino DO Neurosurgeon Neurosurgical oncologist Office: [phone] Cell: [phone] Images from the original note were not included. [facility] Internal Medicine Teaching Residency Program Inpatient Daily Progress Note Patient: Kedar Ocasio Date of : 1960 Acct: [id number] Room: 01006-12 Admit date: 07/28/2023 Today's date: [...] OT on board Discharge Planning / SW: digital content manager discharge planning Terri Ayala MD Internal Medicine Resident, PGY-1 [facility], [place], [place] 07/29/2023, 5:09 AM Attestation and add [...] 166* BP control satisfactory [place] [address]. Answering Service: Neurosurgery Post op Progress Note [...] remains in house. documented in this encounter [facility] 07-31-2023 Hospital Discharge instructions Soraida Frias [...] or concerns. The office phone number is [phone]. documented in this encounter [facility] 09-15-2022 Note CONSULTATION CONSULTATION DATE: 09/15/2022 TO: [...] our patients to inform us about any ucim-hrf-fqjvmip medications or herbal remedies/nutritional supplements/alternative remedies. 2. [...] options with their primary care provider. [facility] 08-09-2022 Note PROCEDURE: XR KNEE R T 3V COMPARISON: None. HISTORY: Pain of right knee joint FINDINGS: BONES:No acute fracture or dislocation. Mild degenerative osteoarthropathy with mild atrophy. SOFT TISSUES:Negative. No visible soft tissue swelling. EFFUSION:None visible. OTHER: Negative. IMPRESSION: Mild osteoarthritis Electronically authenticated by: GUILLERMO AMADOR Date: 2022-08-09 17:19 [facility] 08-09-2022 Note PAIN MANAGEMENT CONS ULTATION CONSULTATION [...] under fluoroscopic guidance. Will as well. [facility] 04-21-2022 Note CONSULTATION CONSULTATION DATE: 04/21/2022 HISTORY [...] up in the office post procedure. [facility] 01-20-2022 Note CONSULTATION CONSULTATION DATE: 01/20/2022 This [...] agrees with the plan of care. [facility] Evaluation note Diagnosis 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)- Primary 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) Primary hypertension Unspecified essential hypertension Type 2 diabetes mellitus (HCC) Type II or unspecified type diabetes mellitus without mention of complication, not stated as uncontrolled documented in this encounter [facility] Diagnosis Type 2 diabetes mellitus without complication, without long-term current use of insulin ([facility])- Primary Essential hypertension Unspecified essential hypertension documented in this encounter [facility] Diagnosis 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) [facility] Diagnosis Lumbar disc disease with radiculopathy Displacement of lumbar intervertebral disc without myelopathy documented in this [facility]* Diagnosis Hypokalemia- Primary Hypopotassemia documented in [...] cervical spine with myelopathy (HCC) Pedro Mallory, TURRET LATHE OPERATOR - SERVICE COUNTER CASHIER [address] [address] Referral ID Status Reason Start Date Expiration Date Visits Requested Visits Authorized [id number] Pending Review Specialty Services Required 07/31/2023 01/27/2024 [...] CREATED AUTHOR AUTHOR'S ORGANIZ ATION 10/27/2022 [facility] DATE CREATED AUTHOR AUTHOR'S ORGANIZ ATION 05/26/2023 [facility] DATE CREATED AUTHOR AUTHOR'S ORGANIZ ATION 11/28/2023 [facility] DATE CREATED AUTHOR AUTHOR'S ORGANIZ ATION 01/01/2024 [facility] DATE CREATED AUTHOR AUTHOR'S ORGANIZ ATION 02/20/2024 [facility] DATE CREATED AUTHOR AUTHOR'S ORGANIZ ATION 04/10/2024 [facility] DATE CREATED AUTHOR AUTHOR'S ORGANIZ ATION 04/19/2024 [facility] Reason for Visit (unrecogniz ed section and content) Reason Comments Med Refill Specialty Diagnoses / Procedures Referred By Sandor faulkner Referred To Contact Diagnoses 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) 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) [M48.02, G99.2] Procedures GA ARTHRD PST/PSTLAT TQ 1NTRSPC CRV BELW C2 SEGMENT GA ALLOGRAFT FOR SPINE SURGERY ONLY MORSELIZED GA AUTOGRAFT SPINE SURGERY LOCAL FROM SAME INCISION GA MICROSURG TQS REQ USE OPERATING MICROSCOPE GA STEREOTACTIC COMPUTER ASSISTED PX SPINAL GA LAMINECTOMY W/O FFD > 2 VERT SEG CERVICAL GA ARTHRODESIS PST/PSTLAT TQ 1NTRSPC EA ADDL NTRSPC GA ARTHRODESIS PST/PSTLAT TQ 1NTRSPC EA ADDL NTRSPC GA ARTHRODESIS PST/PSTLAT TQ 1NTRSPC EA ADDL NTRSPC GA ARTHRODESIS PST/PSTLAT TQ 1NTRSPC EA ADDL NTRSPC GA ARTHRODESIS PST/PSTLAT TQ 1NTRSPC EA ADDL NTRSPC GA ARTHRODESIS PST/PSTLAT TQ 1NTRSPC EA ADDL NTRSPC GA POSTERIOR SEGMENTAL INSTRUMENTATION 7-12 VRT SEG C2-T2 POSTERIOR FUSION, DECOMPRESSION (VESTAL SPINE TABLE, PRONE, GLEN RICHEY HEADHOLDER, C-ARM, O-ARM, SSEP MONITORING, DEPUY, [employer] NAVIGATION, [employer]ES CONF# [id number]) *DR. YODER TO ASSIST* SHORT STAY Mike Townsend, [facility] [address] [place] [address] [facility] [address] [place] [address] Referral ID Status Reason Start Date Expiration Date Visits Re quested Visits Authorized [id number] 1 1 Reason Comments Follow-up Care Teams (unrecognized sec tion and content) Organizational Development Specialist Relationship Specialty Start Date End Date Walter Littlejohn DO [address], [facility] [place] [address] PCP - General Family Medicine 09/17/18 Organizational Development Specialist Relationship Specialty Start Date End Date Day Obando APRN - JULIA [address] [place] [address] PCP - General Family Medicine 04/10/23 Organizational Development Specialist Relationship Specialty Start Date End Date Day Obando APRN-SERVICE COUNTER CASHIER [address] [place] [address] PCP - General Internal Medicine 06/29/23 Organizational Development Specialist Relationship Specialty Start Date End Date Topher Day Shaw TURRET LATHE OPERATOR-SERVICE COUNTER CASHIER [address] [place] [address] PCP - General Internal Medicine 06/29/23 Organizational Development Specialist Relationship Specialty Start Date End Date Day Obando TURRET LATHE OPERATOR-SERVICE COUNTER CASHIER [address] [place] [address] PCP - General Internal Medicine 06/29/23 Organizational Development Specialist Relationship Specialty Start Date End Date Day Obando TURRET LATHE OPERATOR - SERVICE COUNTER CASHIER [address] [place] [address] PCP - General Family Medicine 04/10/23 Organizational Development Specialist Relationship Specialty Start Date End Date Day Obando TURRET LATHE OPERATOR - SERVICE COUNTER CASHIER [address] [place] [address] PCP - General Family Medicine 04/10/23 Organizational Development Specialist Relationship Specialty Start Date End Date Day Obando TURRET LATHE OPERATOR - SERVICE COUNTER CASHIER [address] [place] [address] PCP - General Family Medicine 04/10/23 Organizational Development Specialist Relationship Specialty Start Date End Date Day Obando TURRET LATHE OPERATOR-SERVICE COUNTER CASHIER [address] [place] [address] PCP - General Internal Medicine 06/29/23 Organizational Development Specialist Relationship Specialty Start Date End Date Day Obando TURRET LATHE OPERATOR-SERVICE COUNTER CASHIER [address] [place] [address] PCP - General Internal Medicine 06/29/23 Organizational Development Specialist Relationship Specialty Start Date End Date Day Obando TURRET LATHE OPERATOR-SERVICE COUNTER CASHIER [address] [place] [address] PCP - General Internal Medicine 06/29/23 Organizational Development Specialist Relationship Specialty Start Date End Date Day [place], TURRET LATHE OPERATOR-SERVICE COUNTER CASHIER [address] [place] [address] PCP - General Internal Medicine 06/29/23 Ordered [...] Carranza RN)[phone] (Given - Provider: Kennedy Carranza RN)[phone] (Given - Provider: Sweetie Villagomez RN) [phone] [...] Villagomez RN) [phone] (Given - Provider: Sweetie Villagomze RN)[phone] (Given - Provider: Sweetie Villagomez RN)[phone] [...] BE BASED ON THE PRIMARY CLINICAL RECORDS. [employer] [facility]. provides no warranty or guarantee of the accuracy or completeness of information in this document.
[2024-04-29 06:42] VITALS: BP 148/92; PULSE 80; TEMP 36.7; O2SAT 96
[2024-04-29 06:49] LABS: Glucometer 126 mg/dL (74-106)
[2024-04-29 07:40] VITALS: BP 140/100; PULSE 76; O2SAT 97
[2024-04-29] MEDS: IOHEXOL 240 MG/ML - 10 ML VIAL INJ (07:41)
[2024-04-29] MEDS: BUPIVACAINE HCL 0.25% PF 25 MG/10 ML VIAL 4 ML INJ (07:41)
[2024-04-29 07:42] VITALS: BP 143/81; PULSE 75; O2SAT 97
[2024-04-29] MEDS: TRIAMCINOLONE ACETONIDE 40 MG/ML VIAL 80 MG INJ (07:42)
[2024-04-29] MEDS: LIDOCAINE HCL 2% 400 MG/20 ML MDV 15 ML INJ (07:42)
--- NOTE | 2024-04-29 07:43 | W.PM.PROCNOT ---
Date of procedure: 04/29/24 Pre-op diagnosis: Pain due to bilateral sacroiliitis Post-op diagnosis: same as pre-op Procedure: Procedure: Bilateral sacroiliac joint injection Medications: Bupivacaine 0.25% 3cc, kenalog 40mg x2 After informed consent was obtained, the patient was brought to the medical procedure unit and placed in the prone position, when a timeout was completed verifying correct patient, procedure, site, positioning, implant, and/or special equipment.? The skin overlying the area was prepped and draped in standard sterile fashion using alcohol.? A 25-gauge needle was inserted towards the left sacroiliac joint under direct fluoroscopic imaging.? Needle tip was advanced until the joint was encountered.? We instilled a total of 2 mL of solution.? The same procedure was then completed on the right side.? Postoperatively needles were removed.? The patient tolerated the procedure well without complication.? The patient reported reduction in pain symptoms postoperatively. Anesthesia: Local Surgeon: Macey Monterroso Pathology: none sent Condition: stable Disposition: no change
== END 2024-04-29 07:45 | disposition home or self-care (01) ==
LOC: SURGOUT 06:22
PROVIDERS: PCP Family Medicine; Visit Provider Anesthesiology
DX: M46.1 Sacroiliitis, not elsewhere classified (principal); E11.9 Type 2 diabetes mellitus without complications; Z79.84 Long term (current) use of oral hypoglycemic drugs
CPT/HCPCS: 27096; 36415; 82948; J0665; J3301; Q9966

== ENCOUNTER 2024-05-06 12:17 | Outpatient (OUT) | payer OTHER, MEDICARE, SELFPAY ==
--- OUTSIDE RECORDS SUMMARY | 2024-05-06 12:36 | XMS_ITS | CCD ---
Author Organization [facility] Care Team Providers Care Vegetable Loader Name Role Phone LAKSHMIPATHY ., NARENDRANATH Consulting [...] FURLONG, DR WALTER Toney Primary Care Unavailable PRICHARD, DR GUILLERMO Braun Consulting Unavailable TOPHER, DAY [...] Unavailable Furlong Walter MOY Primary Care Provider [phone] Topher WOOD LATHE OPERATOR - [facility], Day Primary Care Provider Topher WOOD LATHE OPERATOR-[facility], Day Primary Care Provider MIKE TOWNSEND [...] Attending Unavailable TOPHER, DAY L Referring Unavailable TOPHRE, DAY L Primary Care Unavailable TOPHER, DAY [...] L Primary Care Unavailable TOPHER, DAY L Referring Unavailable TOPHER, [...] Start: 06-27-2022 take 1 capsule by mo [facility] once daily gabapentin (NEURONTIN) 100 mg capsule [...] Start: 06-01-2023 take 2 tablets by mo [facility] once daily in the morning metFORMIN (GLUCOPHAGE) [...] E) injection 5 mg polyethylene glycol [id number] mg powder for oral solution (1 source) Osmotic Laxative Start: 07-28-2023 17 g, Oral, DAILY, First dose on Mon07/28/23 at 1745, Until Discontinued, Post-op sennosides, fci 8.6 mg oral tablet (1 source) Start: [...] Anion gap [Moles/Vol] 9 mmol/L Normal 5-15 [facility] Comment on above: Performed By: #### B MP #### [facility] ([id number]) [address], [address] [place] [address] Calcium [Mass/Vol] 10.0 mg/dL Normal 8.5-10.5 [facility] Comment on above: Performed By: #### B MP #### [facility] ([id number]) [address] [place] [address] Chloride [Moles/Vol] 101 mmol/L Normal 98-109 [facility] Comment on above: Performed By: #### B MP #### [facility] ([id number]) [address] [place] [address] CO2 [Moles/Vol] 31 mmol/L Normal 22-32 [facility] Comment on above: Performed By: #### B MP #### [facility] ([id number]) [address], [address] [place] [address] Creatinine [Mass/Vol] 1.10 mg/dL Normal 0.60-1.30 [facility] Comment on above: Result Comment: METH OD TRACEABLE TO IDMS STANDARD Performed By: #### B MP #### [facility] ([id number]) [address], [address] [place] [address] GFR/1.73 sq M.predicted among non-blacks MDRD (S/P/Bld) [Vol rate/Area] 74 mL/min/{1.73_m2} Normal >59 [facility] Comment on above: Result Comment: Reported eGFR is based on the CKD-EPI 2020 equation that does not use a race coefficient. Performed By: #### B MP #### [facility] ([id number]) [address], [address] [place] [address] Glucose [Mass/Vol] 106 mg/dL High 65-99 [facility] Comment on above: Performed By: #### B MP #### [facility] ([id number]) [address], [address] [place] [address] Potassium [Moles/Vol] 4.7 mmol/L Normal 3.5-5.0 [facility] Comment on above: Performed By: #### B MP #### [facility] ([id number]) [address], [address] [place] [address] Sodium [Moles/Vol] 141 mmol/L Normal 134-146 [facility] Comment on above: Performed By: #### B MP #### [facility] ([id number]) [address], [address] [place] [address] Urea nitrogen [Mass/Vol] 20 mg/dL Normal 5-27 [facility] Comment on above: Performed By: #### B #### [facility] ([id number]) [address] [place] [address] No Panel Informationon 11-28 1. Mild dextroscoliosis of the thoracolumbar junction with a Bowling angle of approximately 13 degrees. 2. Status post posterior fusion from C3 through T1 without hardware complication. 3. 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 [facility] EXAMINATION: TWO XRAY VIEWS SCOLIOSIS SERIES; [...] intact. The paravertebral soft tissues are unremarkable. [facility] Blake Hale MD - [...] pronounced at L3-4 to a severe degree. [facility] [employer] No Panel InformationOrdered By: Blake Hale on 11-29-2023 [facility] [employer] Work Phone: XR LUMBAR SPINE FLEXION AND [...] Blake Hale MD 11/29/23 Final result Normal [facility] XR SPINE ENTIRE (2-3 VIEWS)o [...] Blake Hale MD 11/29/23 Final result Normal [facility] No Panel Informationon 11-26 Radiology Study observation (narrative) [facility] XR CERVICAL SPINE (2-3 VIEWS )on [...] Martinez Kelly MD 11/27/23 Final result Normal [facility] XR CERVICAL SPINE (2-3 VIEWS )on 09-24-2023 [...] Cortez Peralta DO 09/24/23 Final result Normal [facility] Basic Metab w/rfx MGon 07-31 Anion gap [Moles/Vol] 11 mmol/L Normal 9-17 [facility] Comment on above: Performed By: #### T YS #### [employer] [address] [place] [address] Racing Car Driver: Kan Craig MD Calcium [Mass/Vol] 9.0 mg/dL Normal 8.6-10.4 [facility] Comment on above: Performed By: #### T YS #### [facility] [address] [place] [address] [employer] Driver: Kan Craig MD Chloride [Moles/Vol] 98 mmol/L Normal 98-107 [facility] Comment on above: Performed By: #### T YS #### [facility] [address] [place] [address] [employer] Driver: Kan Craig MD CO2 [Moles/Vol] 24 mmol/L Normal 20-31 [facility] Comment on above: Performed By: #### T YS #### [address] [address] [employer] Driver: Kan Craig MD Creatinine [Mass/Vol] 0.6 mg/dL Low 0.7-1.2 [facility] Comment on above: Performed By: #### T YS #### [address] [address] [employer] Car Driver: Kan Craig MD GFR/1.73 sq M.predicted among non-blacks MDRD (S/P/Bld) [Vol rate/Area] mL/min/{1.73_m2} Normal >60 [facility] Comment on above: Result Comment: [...] secretion. Performed By: #### T YS #### [address] [address] [employer] Car Driver: Kan Craig MD Glucose [Mass/Vol] 155 mg/dL High 70-99 [facility] Comment on above: Performed By: #### T YS #### [address] [id number] [employer] Driver: Kan Craig MD Potassium [Moles/Vol] 3.7 mmol/L Normal 3.7-5.3 [facility] Comment on above: Performed By: #### T YS #### [facility] [address] [place] [address] [employer] Car Driver: Kan Craig MD Sodium [Moles/Vol] 133 mmol/L Low 135-144 [facility] Comment on above: Performed By: #### T YS #### [facility] [address] [place] [address] [employer] Car Driver: Kan Craig MD Urea nitrogen [Mass/Vol] 14 mg/dL Normal 8-23 [facility] Comment on above: Performed By: #### T YS #### [facility] [address] [place] [address] [employer] Car Driver: Kan Craig MD Basic Metabolic Panel w/ Ref analisa to MGon 07-31-2023 Anion gap [Moles/Vol] 11 mmol/L 9 - 17 mmol/L [facility] [employer] Calcium [Mass/Vol] 9.0 mg/dL 8.6 - 10. 4 mg/dL [facility] [employer] Chloride [Moles/Vol] 98 mmol/L 98 - 10 7 mmol/L [facility] CO2 [Moles/Vol] 24 mmol/L 20 - 31 mmol/L [facility] Creatinine [Mass/Vol] 0.6 mg/dL Low 0.7 - 1.2 mg/dL [facility] [employer] GFR/1.73 sq M.predicted MDRD (S/P/Bld) [Vol rate/Area] - PINF [facility] Comment on above: These results are not [...] mg/dL High 70 - 99 mg/dL [facility] Potassium [Moles/Vol] 3.7 mmol/L 3.7 - 5.3 mmol/L [facility] Sodium [Moles/Vol] 133 mmol/L Low 135 - 144 mmol/L [facility] Urea nitrogen [Mass/Vol] 14 mg/dL 8 - 23 mg/dL [facility] CBC with Auto Differentialon 07-31-2023 Basophils (Bld) [#/Vol] 0.09 10*3/uL [facility] Basophils/100 WBC (Bld) 1 % 0 - 2 % [facility] Eosinophils (Bld) [#/Vol] 0.09 10*3/uL [facility] Eosinophils/100 WBC (Bld) 1 % 1 - 4 % [facility] Erythrocyte distribution width (RBC) [Ratio] 11.9 % 11.8 - 14.4 % [facility] Hematocrit (Bld) [Volume fraction] 45.5 % 40.7 - 50.3 % [facility] Hemoglobin (Bld) [Mass/Vol] 15.3 g/dL 13.0 - 17.0 g/dL [facility] Immature granulocytes (Bld) [#/Vol] [facility] Immature granulocytes/100 WBC (Bld) 0 % 0 [facility] Interpretation and review of laboratory results Abnormal [facility] Lymphocytes/100 WBC (Bld) 22 % Low 24 - 43 % [facility] Lymphocytes/100 WBC (Bld) 1.89 % [facility] MCH (RBC) [Entitic mass] 31.3 pg 25.2 - 33.5 pg [facility] MCHC (RBC) [Mass/Vol] 33.6 g/dL 28.4 - 34.8 g/dL [facility] MCV (RBC) [Entitic vol] 93.0 fL 82.6 - 102.9 fL [facility] Monocytes/100 WBC (Bld) 11 % 3 - 12 % [facility] Monocytes/100 WBC (Bld) 0.96 % [facility] Neutrophils/100 WBC (Bld) 65 % 36 - 65 % [facility] Nucleated RBC/100 WBC (Bld) [Ratio] 0.0 % 0.0 per 100 WBC [facility] Platelet mean volume (Bld) [Entitic vol] 10.6 fL 8.1 - 13.5 fL [facility] Platelets (Bld) [#/Vol] 234 10*3/uL [facility] RBC (Bld) [#/Vol] 4.89 10*6/uL 4.21 - 5.7 7 m/uL [facility] Segmented neutrophils/100 WBC (Bld) 5.57 % [facility] WBC other (Bld) [#/Vol] 8.6 [facility] CBC with Diffon 07-31-2023 Abs. Basophil 0.09 k/uL Normal 0.00-0.20 [facility] Comment on above: Performed By: #### T YS #### [place] [address] [employer] Car Driver: Kan Craig MD Abs.Imm.Granulocyte <0.03 Normal 0.00-0.30 [facility] Comment on above: Performed By: #### T YS #### [place] [address] [employer] Driver: Kan Craig MD Abs.Neutrophil (Seg) 5.57 k/uL Normal 1.50-8.10 [facility] Comment on above: Performed By: #### T YS #### [facility] [employer] [address] [place] [address] [employer] Car Driver: Kan Craig MD Basophils/100 WBC (Bld) 1 % Normal 0-2 [facility] Comment on above: Performed By: #### T YS #### [facility] [employer] [address] [place] [address] [employer] Driver: Kan Craig MD Eosinophils (Bld) [#/Vol] 0.09 10*3/uL Normal 0.00-0.44 [facility] Comment on above: Performed By: #### T YS #### [address] [address] [employer] Car Driver: Kan Craig MD Eosinophils/100 WBC (Bld) 1 % Normal 1-4 [facility] Comment on above: Performed By: #### T YS #### [place] [address] [employer] Driver: Kan Craig MD Erythrocyte distribution width (RBC) [Ratio] 11.9 % Normal 11.8-14.4 [facility] Comment on above: Performed By: #### T YS #### [place] [address] [employer] Driver: aKn Craig MD Hematocrit (Bld) [Volume fraction] 45.5 % Normal 40.7-50.3 [facility] Comment on above: Performed By: #### T YS #### [place] [address] [employer] Driver: Kan Craig MD Hemoglobin (Bld) [Mass/Vol] 15.3 g/dL Normal 13.0-17.0 [facility] Comment on above: Performed By: #### T YS #### [place] [address] [employer] Driver: Kan Craig MD Immature granulocytes/100 WBC (Bld) 0 % Normal 0 [facility] Comment on above: Performed By: #### T YS #### [place] [address] [employer] Car Driver: Kan Craig MD Lymphocytes (Bld) [#/Vol] 1.89 10*3/uL Normal 1.10-3.70 [facility] Comment on above: Performed By: #### T YS #### [address] [address] [employer] Car Driver: Kan Craig MD Lymphocytes/100 WBC (Bld) 22 % Low 24-43 [facility] Comment on above: Performed By: #### T YS #### [address] [address] [employer] Car Driver: Kan Craig MD MCH (RBC) [Entitic mass] 31.3 pg Normal 25.2-33.5 [facility] Comment on above: Performed By: #### T YS #### [address] [address] Racing Car Driver: Kan Craig MD MCHC (RBC) [Mass/Vol] 33.6 g/dL Normal 28.4-34.8 [facility] Comment on above: Performed By: #### T YS #### [address] [address] [employer] Car Driver: Kan Craig MD MCV (RBC) [Entitic vol] 93.0 fL Normal 82.6-102.9 [facility] Comment on above: Performed By: #### T YS #### [address] [address] Racing Car Driver: Kan Craig MD Monocytes (Bld) [#/Vol] 0.96 10*3/uL Normal 0.10-1.20 [facility] Comment on above: Performed By: #### T YS #### [address] [address] [employer] Car Driver: Kan Craig MD Monocytes/100 WBC (Bld) 11 % Normal 3-12 [facility] Comment on above: Performed By: #### T YS #### [address] [address] [employer] Car Driver: Kan Craig MD Neutrophil (Seg) 65 % Normal 36-65 [facility] Comment on above: Performed By: #### T YS #### [address] [address] [employer] Car Driver: Kan Craig MD NRBC Automated 0.0 per 100 WBC Normal 0.0 [facility] Comment on above: Performed By: #### T YS #### [address] [address] Racing Car Driver: Kan Craig MD Platelet mean volume (Bld) [Entitic vol] 10.6 fL Normal 8.1-13.5 [facility] Comment on above: Performed By: #### T YS #### [address] [address] Racing Car Driver: Kan Craig MD Platelets (Bld) [#/Vol] 234 10*3/uL Normal 138-453 [facility] Comment on above: Performed By: #### T YS #### [address] [address] Racing Car Driver: Kan Craig MD RBC (Bld) [#/Vol] 4.89 10*6/uL Normal 4.21-5.77 [facility] Comment on above: Performed By: #### T YS #### [address] [address] [employer] Car Driver: Kan Craig MD WBC (Bld) [#/Vol] 8.6 10*3/uL Normal 3.5-11.3 [facility] Comment on above: Performed By: #### T YS #### [address] [address] Racing Car Driver: Kan Craig MD EKG 12 LeadOrdered By: Froilan Hartmann on 07-31-2023 Atrial Rate 114 BPM [employer] [facility] [employer] Phone: P [place] 48 degrees [employer] Work Phone: P-R Interval 168 ms [employer] Work Phone: Q-T Interval 316 ms MARCELA [employer] Work Phone: QRS Duration 86 ms MARCELA [employer] Work Phone: QTc Calculation (Bazett) 435 ms MARCELA [employer] Work Phone: R [place] -37 degrees MARCELA [employer] Work Phone: T [place] 37 degrees MARCELA [employer] Work Phone: Ventricular Rate 114 BPM MARCELA [employer] Work Phone: MARCELA [employer] Work Phone: EKG 12 Leadon 07-31-2023 Sinus tachycardia Left axis deviation Low voltage QRS 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 rate has increased BY 44 BPM [facility] Froilan Kaminski MD - 07/31/2023 Sinus tachycardia Left axis deviation Low voltage QRS 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 rate has increased BY 44 BPM [employer] Glucose,Whole Bloodon 2023 Glucose [Mass/Vol] 177 mg/dL High 75-110 [facility] Glucose [Mass/Vol] 166 mg/dL High 75-110 [facility] Lipid Panelon 07-31-2023 Cholesterol [Mass/Vol] 141 mg/dL NINF - 200 mg/dL [employer] Comment on above: Cholesterol Guidelines: <200 Desirable 200-240 Borderline >240 Undesirable Cholesterol in HDL [Mass/Vol] 34 mg/dL Low 40 - PINF mg/dL [employer] Comment on above: HDL Guidelines: <40 Undesirable 40-59 Borderline >59 Desirable Cholesterol in LDL [Mass/Vol] 73 mg/dL 0 - 130 mg/dL [facility] Comment on above: LDL Guidelines: <100 Desirable 100-129 Near to/above Desirable 130-159 Borderline >159 Undesirable Direct (measured) LDL and calculated LDL are not interchangeable tests. Cholesterol.total/Chol esterol in HDL [Mass ratio] 4.1 {ratio} NINF - 5 [facility] Triglyceride [Mass/Vol] 169 mg/dL High NINF - 150 mg/dL [facility] Comment on above: Triglyceride Guidelines: <150 Desirable 150-199 Borderline 200-499 High >499 Very high Based on AHA Guidelines for fasting triglyceride, March 2012. Lipid Profileon 07-31-2023 Cholesterol [Mass/Vol] 141 mg/dL Normal <200 [facility] Comment on above: Result Comment: Cholesterol Guidelines: <200 Desirable 200-240 Borderline >240 Undesirable Performed By: #### T YS #### [address] [address] [employer] Car Driver: Kan Craig MD Cholesterol in HDL [Mass/Vol] 34 mg/dL Low >40 [facility] Comment on above: Result Comment: HDL Guidelines: <40 Undesirable 40-59 Borderline >59 Desirable Performed By: #### T YS #### [facility] [employer] [address] [place] [address] [employer] Driver: Kan Craig MD Cholesterol in LDL [Mass/Vol] 73 mg/dL Normal 0-130 [facility] Comment on above: Result Comment: LDL Guidelines: <100 Desirable 100-129 Near to/above Desirable 130-159 Borderline >159 Undesirable Direct (measured) LDL and calculated LDL are not interchangeable tests. Performed By: #### T YS #### [employer] [address] [place] [address] [employer] Car Driver: Kan Craig MD Cholesterol.total/Chol esterol in HDL [Mass ratio] 4.1 {ratio} Normal <5 [facility] Comment on above: Performed By: #### T YS #### [employer] [address] [place] [id number] Racing Car Driver: Kan Craig MD Triglyceride [Mass/Vol] 169 mg/dL High <150 [facility] Comment on above: Result Comment: Triglyceride Guidelines: <150 Desirable 150-199 Borderline 200-499 High >499 Very high Based on AHA Guidelines for fasting triglyceride, March 2012. Performed By: #### T YS #### [email or web address] [address] [place] [address] Racing Car Driver: Kan Craig MD No Panel Informationon 07-31 Interpretation and review of laboratory results Abnormal [facility] [employer] [facility] [employer] POC Glucose Fingerstickon Glucose [Mass/Vol] 177 mg/dL High 75 - 110 mg/dL [facility] [employer] Interpretation and review of laboratory results Abnormal [facility] [employer] Glucose [Mass/Vol] 166 mg/dL High 75 - 110 mg/dL [facility] [employer] Interpretation and review of laboratory results Abnormal [facility] MyClassesCHRISTUS [facility] – MEDICAL CENTERHuTerra CT CHEST PULMONARY EMBOLISM W CONTRASTon 07-30-2023 [...] Adan Hodges MD 07/30/23 Final result Normal [facility] 1. No evidence of pulmonary embolism or acute pulmonary abnormality. 2. Three-vessel coronary artery calcification. [facility] EXAMINATION: CTA OF THE CHEST 07/30/2023 [...] No acute bone or soft tissue abnormality. [facility] Adan Hodges MD - [...] abnormality. 2. Three-vessel coronary artery calcification. [facility] Radiology Study observation (narrative) [facility] CT CHEST PULMONARY EMBOLISM W CONTRASTOrdered By: Adan Hodges on 07-30-2023 [facility] Work Phone: Glucose,Whole Bloodon 2023 Glucose [Mass/Vol] 167 mg/dL High 75-110 [facility] Glucose [Mass/Vol] 149 mg/dL High 75-110 [facility] Glucose [Mass/Vol] 153 mg/dL High 75-110 [facility] Glucose [Mass/Vol] 142 mg/dL High 75-110 [facility] Hemoglobin A1Con 07-30-2023 Average glucose Estimated from glycated hemoglobin (Bld) [Mass/Vol] 137 mg/dL [facility] Comment on above: The ADA and AACC rec ommend providing the estimated average glucose result to permit better patient understanding of their HBA1c result. HbA1c (Bld) [Mass fraction] 6.4 % High 4.0 - 6.0 % [facility] Interpretation and review of laboratory results Abnormal [facility] Glucose [Mass/Vol] 137 mg/dL Normal [facility] Comment on above: Result Comment: The ADA and AACC recommend providing the estimated average glucose result to permit better patient understanding of their HBA1c result. Performed By: #### B MPX, CDP, GLYHGB ####[employer] [place] [address] [facility] Director: Kan Craig MD HbA1c (Bld) [Mass fraction] 6.4 % High 4.0-6.0 [facility] Comment on above: Performed By: #### B VICTORIANO, CDP, GLYHGB ####[facility] [id number] [place] [address] Lab Director: Kan Craig MD POC Glucose Fingerstickon Glucose [Mass/Vol] 167 mg/dL High 75 - 110 mg/dL [facility] Interpretation and review of laboratory results Abnormal [facility] Glucose [Mass/Vol] 149 mg/dL High 75 - 110 mg/dL [facility] Interpretation and review of laboratory results Abnormal [facility] Glucose [Mass/Vol] 153 mg/dL High 75 - 110 mg/dL [facility] Interpretation and review of laboratory results Abnormal [facility] Glucose [Mass/Vol] 142 mg/dL High 75 - 110 mg/dL [facility] Interpretation and review of laboratory results Abnormal [facility] Basic Metab w/rfx MGon 07-29 Anion gap [Moles/Vol] 11 mmol/L Normal 9-17 [facility] Comment on above: Performed By: #### T YS #### [facility] [employer] [address] [place] [address] [employer] Driver: Kan Craig MD Calcium [Mass/Vol] 8.5 mg/dL Low 8.6-10.4 [facility] Comment on above: Performed By: #### T YS #### [facility] [employer] [address] [place] [address] [employer] Driver: Kan Craig MD Chloride [Moles/Vol] 105 mmol/L Normal 98-107 [facility] Comment on above: Performed By: #### T YS #### [facility] [employer] [facility] [place] [address] [employer] Driver: Kan Craig MD CO2 [Moles/Vol] 21 mmol/L Normal 20-31 [facility] Comment on above: Performed By: #### T YS #### [facility] [employer] [address] [place] [address] [employer] Driver: Kan Craig MD Creatinine [Mass/Vol] 0.8 mg/dL Normal 0.7-1.2 [facility] Comment on above: Performed By: #### T YS #### [facility] [employer] [address] [place] [address] [employer] Driver: Kan Craig MD GFR/1.73 sq M.predicted among non-blacks MDRD (S/P/Bld) [Vol rate/Area] mL/min/{1.73_m2} Normal >60 [facility] Comment on above: Result Comment: [...] secretion. Performed By: #### T YS #### [facility] [employer] [address] [place] [address] [employer] Driver: Kan Craig MD Glucose [Mass/Vol] 146 mg/dL High 70-99 [facility] Comment on above: Performed By: #### T YS #### [facility] [employer] [address] [place] [address] [employer] Driver: Kan Craig MD Potassium [Moles/Vol] 4.4 mmol/L Normal 3.7-5.3 [facility] Comment on above: Performed By: #### T YS #### [facility] [employer] [address] [place] [address] Racing Car Driver: Kan Craig MD Sodium [Moles/Vol] 137 mmol/L Normal 135-144 [facility] Comment on above: Performed By: #### T YS #### [facility] [employer] [address] [place] [address] [employer] Car Driver: Kan Craig MD Urea nitrogen [Mass/Vol] 14 mg/dL Normal 8-23 [facility] Comment on above: Performed By: #### T YS #### [facility] [address] [place] [address] [employer] Car Driver: Kan Craig MD Basic Metabolic Panel w/ Ref analisa to MGon 07-29-2023 Anion gap [Moles/Vol] 11 mmol/L 9 - 17 mmol/L [facility] Calcium [Mass/Vol] 8.5 mg/dL Low 8.6 - 10. 4 mg/dL [facility] Chloride [Moles/Vol] 105 mmol/L 98 - 10 7 mmol/L [facility] CO2 [Moles/Vol] 21 mmol/L 20 - 31 mmol/L [facility] Creatinine [Mass/Vol] 0.8 mg/dL 0.7 - 1.2 mg/dL [facility] GFR/1.73 sq M.predicted MDRD (S/P/Bld) [Vol rate/Area] - PINF [facility] Comment on above: These results are not [...] mg/dL High 70 - 99 mg/dL [facility] Interpretation and review of laboratory results Abnormal [facility] Potassium [Moles/Vol] 4.4 mmol/L 3.7 - 5.3 mmol/L [facility] Sodium [Moles/Vol] 137 mmol/L 135 - 144 mmol/L [facility] Urea nitrogen [Mass/Vol] 14 mg/dL 8 - 23 mg/dL [facility] CBC with Auto Differentialon 07-29-2023 Basophils (Bld) [#/Vol] 0.06 10*3/uL [facility] Basophils/100 WBC (Bld) 1 % 0 - 2 % [facility] Eosinophils (Bld) [#/Vol] [facility] Eosinophils/100 WBC (Bld) 0 % Low 1 - 4 % [facility] Erythrocyte distribution width (RBC) [Ratio] 12.2 % 11.8 - 14.4 % [facility] Hematocrit (Bld) [Volume fraction] 46.7 % 40.7 - 50.3 % [facility] Hemoglobin (Bld) [Mass/Vol] 15.5 g/dL 13.0 - 17.0 g/dL [facility] Immature granulocytes (Bld) [#/Vol] 0.05 10*3/uL [facility] Immature granulocytes/100 WBC (Bld) 0 % 0 [facility] Interpretation and review of laboratory results Abnormal [facility] Lymphocytes/100 WBC (Bld) 16 % Low 24 - 43 % [facility] Lymphocytes/100 WBC (Bld) 1.94 % [facility] MCH (RBC) [Entitic mass] 31.4 pg 25.2 - 33.5 pg [facility] MCHC (RBC) [Mass/Vol] 33.2 g/dL 28.4 - 34.8 g/dL [facility] MCV (RBC) [Entitic vol] 94.7 fL 82.6 - 102.9 fL [facility] Monocytes/100 WBC (Bld) 10 % 3 - 12 % [facility] Monocytes/100 WBC (Bld) 1.24 % High [facility] Neutrophils/100 WBC (Bld) 73 % High 36 - 65 % [facility] Nucleated RBC/100 WBC (Bld) [Ratio] 0.0 % 0.0 per 100 WBC [facility] Platelet mean volume (Bld) [Entitic vol] 10.8 fL 8.1 - 13.5 fL [facility] Platelets (Bld) [#/Vol] 243 10*3/uL [facility] RBC (Bld) [#/Vol] 4.93 10*6/uL 4.21 - 5.7 7 m/uL [facility] Segmented neutrophils/100 WBC (Bld) 8.89 % High [facility] WBC other (Bld) [#/Vol] 12.2 High [facility] CBC with Diffon 07-29-2023 Abs. Basophil 0.06 k/uL Normal 0.00-0.20 [facility] Comment on above: Performed By: #### T YS #### [facility] [employer] [address] [place] [address] Racing Car Driver: Kan Craig MD Abs. Eosinophil <0.03 Normal 0.00-0.44 [facility] Comment on above: Performed By: #### T YS #### [facility] [employer] [address] [place] [address] [employer] Car Driver: Kan Craig MD Abs.Imm.Granulocyte 0.05 k/uL Normal 0.00-0.30 [facility] Comment on above: Performed By: #### T YS #### [facility] [employer] [address] [place] [address] [employer] Car Driver: Kan Craig MD Abs.Neutrophil (Seg) 8.89 k/uL High 1.50-8.10 [facility] Comment on above: Performed By: #### T YS #### [facility] [employer] [address] [place] [address] [employer] Driver: Kan Craig MD Basophils/100 WBC (Bld) 1 % Normal 0-2 [facility] Comment on above: Performed By: #### T YS #### [address] [address] [employer] Car Driver: Kan Craig MD Eosinophils/100 WBC (Bld) 0 % Low 1-4 [facility] Comment on above: Performed By: #### T YS #### [facility] [employer] [address] [place] [address] [employer] Car Driver: Kan Craig MD Erythrocyte distribution width (RBC) [Ratio] 12.2 % Normal 11.8-14.4 [facility] Comment on above: Performed By: #### T YS #### [address] [address] [employer] Car Driver: Kan Craig MD Hematocrit (Bld) [Volume fraction] 46.7 % Normal 40.7-50.3 [facility] Comment on above: Performed By: #### T YS #### [address] [address] [employer] Car Driver: Kan Craig MD Hemoglobin (Bld) [Mass/Vol] 15.5 g/dL Normal 13.0-17.0 [facility] Comment on above: Performed By: #### T YS #### [address] [address] Racing Car Driver: Kan Craig MD Immature granulocytes/100 WBC (Bld) 0 % Normal 0 [facility] Comment on above: Performed By: #### T YS #### [address] [address] Racing Car Driver: Kan Craig MD Lymphocytes (Bld) [#/Vol] 1.94 10*3/uL Normal 1.10-3.70 [facility] Comment on above: Performed By: #### T YS #### [address] [address] [employer] Car Driver: Kan Craig MD Lymphocytes/100 WBC (Bld) 16 % Low 24-43 [facility] Comment on above: Performed By: #### T YS #### [address] [address] [employer] Car Driver: Kan Craig MD MCH (RBC) [Entitic mass] 31.4 pg Normal 25.2-33.5 [facility] Comment on above: Performed By: #### T YS #### [address] [address] Racing Car Driver: Kan Craig MD MCHC (RBC) [Mass/Vol] 33.2 g/dL Normal 28.4-34.8 [facility] Comment on above: Performed By: #### T YS #### [address] [address] Racing Car Driver: Kan Craig MD MCV (RBC) [Entitic vol] 94.7 fL Normal 82.6-102.9 [facility] Comment on above: Performed By: #### T YS #### [address] [address] Racing Car Driver: Kan Craig MD Monocytes (Bld) [#/Vol] 1.24 10*3/uL High 0.10-1.20 [facility] Comment on above: Performed By: #### T YS #### [address] [address] [employer] Car Driver: Kan Craig MD Monocytes/100 WBC (Bld) 10 % Normal 3-12 [facility] Comment on above: Performed By: #### T YS #### [address] [address] [employer] Car Driver: Kan Craig MD Neutrophil (Seg) 73 % High 36-65 [facility] Comment on above: Performed By: #### T YS #### [address] [address] [employer] Car Driver: Kan Craig MD NRBC Automated 0.0 per 100 WBC Normal 0.0 [facility] Comment on above: Performed By: #### T YS #### [address] [address] Racing Car Driver: Kan Craig MD Platelet mean volume (Bld) [Entitic vol] 10.8 fL Normal 8.1-13.5 [facility] Comment on above: Performed By: #### T YS #### [facility] [address] [place] [address] Racing Car Driver: Kan Craig MD Platelets (Bld) [#/Vol] 243 10*3/uL Normal 138-453 [facility] Comment on above: Performed By: #### T YS #### [facility] [employer] [facility] [place] [address] Racing Car Driver: Kan Craig MD RBC (Bld) [#/Vol] 4.93 10*6/uL Normal 4.21-5.77 [facility] Comment on above: Performed By: #### T YS #### [facility] [employer] [address] [place] [address] Racing Car Driver: Kan Craig MD WBC (Bld) [#/Vol] 12.2 10*3/uL High 3.5-11.3 [facility] Comment on above: Performed By: #### T YS #### [facility] [employer] [address] [place] [address] [employer] Car Driver: Kan Craig MD Glucose,Whole Bloodon 2023 Glucose [Mass/Vol] 151 mg/dL High 75-110 [facility] Glucose [Mass/Vol] 174 mg/dL High 75-110 [facility] Glucose [Mass/Vol] 166 mg/dL High 75-110 [facility] Glucose [Mass/Vol] 139 mg/dL High 75-110 [facility] No Panel Informationon 07-29 Radiology Study observation (narrative) [facility] [employer] POC Glucose Fingerstickon Glucose [Mass/Vol] 151 mg/dL High 75 - 110 mg/dL [facility] [employer] Interpretation and review of laboratory results Abnormal [facility] [employer] Glucose [Mass/Vol] 174 mg/dL High 75 - 110 mg/dL [facility] Interpretation and review of laboratory results Abnormal [facility] Glucose [Mass/Vol] 166 mg/dL High 75 - 110 mg/dL [facility] Interpretation and review of laboratory results Abnormal [facility] Glucose [Mass/Vol] 139 mg/dL High 75 - 110 mg/dL [facility] Interpretation and review of laboratory results Abnormal [facility] Portable XR Chest AP single viewon 07-29-2023 No radiographic evidence of acute cardiopulmonary process. Postop findings. [facility] CONSOL[facility]ATED EXAMINATION: ONE XRAY VIEW OF THE CHEST 07/29/2023 10:57 am COMPARISON: CT chest from 07/27/2023. HISTORY: ORDERING SYSTEM PROVIDED HISTORY: resp eval; postop TECHNOLOGIST PROVIDED HISTORY: resp eval; postop FINDINGS: Overlying ECG monitor leads and neck collar; cervical nina and hardware. Cardiomediastinal shadow unchanged. Lungs/cp angles clear. Probable slight left basilar atelectasis. No consolidation or sizable pleural effusion. Bones unchanged. [facility] Johan Douglas MD - [...] evidence of acute cardiopulmonary process. Postop findings. [facility] Portable XR Chest AP single viewOrdered By: Johan Douglas on 07-29-2023 [facility] Work Phone: XR CERVICAL SPINE (2-3 VIEWS [...] See Watt MD 07/29/23 Final result Normal [facility] XR CHEST PORTABLEon 07-29-19 XR [...] Johan Douglas MD 07/29/23 Final result Normal [facility] XR Cervical spine 2 or 3 Vie wson 07-29-2023 Findings consistent with cervicothoracic spinal fusion and postoperative changes as detailed above. Underlying degenerative changes in the cervical spine. [facility]IS CONSOLIDATED EXAMINATION: 3 XRAY [...] C6-C7. Skin nina along the posterior midline. [facility] See Julian MD - 07/29/2023 EXAMINATION: 3 XRAY VIEWS [...] Underlying degenerative changes in the cervical spine. [facility] [employer] XR Cervical spine 2 or 3 Vie wsOrdered By: See Watt on 07-29-2023 [facility] Work Phone: Calcium, [employer] 07-28-2023 Calcium [Moles/Vol] 1.30 mmol/L Normal 1.13-1.33 [facility] Comment on above: Performed By: #### O HP, IOCAL ####[email or web address] [address] [place] [address] lab Director: Kan Craig MD Calcium [Moles/Vol] 1.43 mmol/L High 1.13-1.33 [facility] Comment on above: Performed By: #### O HP, IOCAL, LACTIC ####[email or web address] [address] [place] [address] [facility] Director: Kan Craig MD Calcium [Moles/Vol] 1.03 mmol/L Low 1.13-1.33 [facility] Comment on above: Performed By: #### I OCAL, OHP ####[facility] [address] [place] [address] lab Director: Kan Craig MD Calcium, Ionizedon Calcium.ionized (Bld) [Moles/Vol] 1.30 mmol/L 1.13 - 1.33 mmol/L [facility] [employer] Calcium.ionized (Bld) [Moles/Vol] 1.43 mmol/L High 1.13 - 1.33 mmol/L [facility] [employer] Calcium.ionized (Bld) [Moles/Vol] 1.03 mmol/L Low 1.13 - 1.33 mmol/L [facility] FLUORO FOR SURGICAL PROCEDUR ESon 07-28-2023 FLUORO FOR SURGICAL PROCEDURES Radiology exam is complete. No Radiologist dictation. Please follow up with ordering provider. Final result Normal [facility] FLUORO FOR SURGICAL PROCEDURES Radiology exam is complete. No Radiologist dictation. Please follow up with ordering provider. Final result Normal [facility] Glucose (POC)on 07-28-2023 Glucose [Mass/Vol] 156 mg/dL High 74-100 [facility] Glucose,Whole Bloodon 2023 Glucose [Mass/Vol] 209 mg/dL High 75-110 [facility] Glucose [Mass/Vol] 200 mg/dL High 75-110 [facility] Glucose [Mass/Vol] 195 mg/dL High 75-110 [facility] Guidance-- during surgeryon 07-28-2023 Radiology exam is complete. No Radiologist dictation. Please follow up with ordering provider. [facility] Radiology exam is complete. No Radiologist dictation. Please follow up with ordering provider. [facility] Lactic Acidon 07-28-2023 Lactic Acid, Whole Blood 1.7 mmol/L 0.7 - 2.1 mmol/L [facility] Lactic Acid,Whole Bl 1.7 mmol/L Normal 0.7-2.1 [facility] Comment on above: Performed By: #### O HP, IOCAL, LACTIC ####[facility] [address] [place] [address] lab Director: Kan Craig MD No Panel Informationon 07-28 [facility] Interpretation and review of laboratory results Abnormal [facility] Interpretation and review of laboratory results Abnormal [facility] OPEN HEART PANELon Arterial patency Wrist artery --pre arterial puncture INFORMATION NOT PROVIDED [facility] Carboxyhemoglobin (Bld) [Mass fraction] 1.3 % 0 - 5 % [facility] Comment on above: Reference Range: Non-Smokers 0-2% Average Smoker 2-4% Heavy Smoker <10% Chloride [Moles/Vol] 108 mmol/L 98 - 11 0 mmol/L [facility] Glucose [Mass/Vol] 206 mg/dL High 75 - 110 mg/dL [facility] HCO3 (Bld) [Moles/Vol] 22.1 mmol/L 22 - 27 mmol/L [facility] Hematocrit (Bld) [Volume fraction] 47.0 % 40.7 - 50.3 % [facility] Hemoglobin (Bld) [Mass/Vol] 15.4 g/dL [facility] Interpretation and review of laboratory results Abnormal [facility] Negative Base Excess, Art 2.7 mmol/L High 0.0 - 2.0 mmol/L [facility] Oxygen saturation in Blood 98.7 % 94 - 100 % [facility] Oxygen/Inspired gas Respiratory system --on ventilator 70 [facility] pCO2, Art, Temp Adj 36.5 32 - 45 [facility] pCO2, Arterial 40.2 [facility] pH, Art, Temp Adj 7.388 7.350 - 7.450 [facility] pH, Arterial 7.359 7.350 - 7.450 [facility] pO2, Art, Temp Adj 295.0 High [facility] pO2, Arterial 305.0 High [facility] Potassium [Moles/Vol] 4.0 mmol/L 3.6 - 5.0 mmol/L [facility] Sodium [Moles/Vol] 137 mmol/L 136 - 145 mmol/L [facility] Arterial patency Wrist artery --pre arterial puncture INFORMATION NOT PROVIDED [facility] Carboxyhemoglobin (Bld) [Mass fraction] 0.2 % 0 - 5 % [facility] Comment on above: Reference Range: Non-Smokers 0-2% Average Smoker 2-4% Heavy Smoker <10% Negative Base Excess, Art 3.3 mmol/L High 0.0 - 2.0 mmol/L [facility] Oxygen/Inspired gas Respiratory system --on ventilator 70% [facility] pCO2, Arterial 44.0 [facility] pH, Arterial 7.326 Low 7.350 - 7.450 [facility] pO2, Arterial 301.0 High [facility] Arterial patency Wrist artery --pre arterial puncture INFORMATION NOT PROVIDED [facility] Carboxyhemoglobin (Bld) [Mass fraction] 1.1 % 0 - 5 % [facility] Comment on above: Reference Range: Non-Smokers 0-2% Average Smoker 2-4% Heavy Smoker <10% Chloride [Moles/Vol] 116 mmol/L High 98 - 11 0 mmol/L [facility] Glucose [Mass/Vol] 150 mg/dL High 75 - 110 mg/dL [facility] HCO3 (Bld) [Moles/Vol] 19.7 mmol/L Low 22 - 27 mmol/L [facility] Hematocrit (Bld) [Volume fraction] 44.5 % 40.7 - 50.3 % [facility] Hemoglobin (Bld) [Mass/Vol] 14.5 g/dL [facility] Negative Base Excess, Art 5.1 mmol/L High 0.0 - 2.0 mmol/L [facility] Oxygen saturation in Blood 98.6 % 94 - 100 % [facility] Oxygen/Inspired gas Respiratory system --on ventilator 70 [facility] pCO2, Arterial 37.6 [facility] pH, Arterial 7.338 Low 7.350 - 7.450 [facility] pO2, Arterial 281.0 High [facility] Potassium [Moles/Vol] 2.9 mmol/L Critically low 3.6 - 5.0 mmol/L [facility] Sodium [Moles/Vol] 140 mmol/L 136 - 145 mmol/L [facility] Open Heart Panelon 4 [facility] INFORMATION NOT PROVIDED [facility] Comment on above: Performed By: #### O HP, IOCAL ####[facility] [address] [place] [address] Lab Director: Kan Craig MD Performed By: #### O HP, IOCAL, LACTIC ####[facility] [address] [place], [place] [phone] Director: Kan Craig MD Body Temp. 35.0 Normal [facility] Comment on above: Performed By: #### O HP, IOCAL ####[facility] [address] [place] [address] Lab Director: Kan Craig MD Carboxy Hgb 1.3 % Normal 0-5 [facility] Comment on above: Result Comment: Reference Range: Non-Smokers 0-2% Average Smoker 2-4% Heavy Smoker <10% Performed By: #### O HP, IOCAL ####[facility] [address] [place], [place] [phone] Director: Kan Craig MD Chloride [Moles/Vol] 108 mmol/L Normal 98-110 [facility] Comment on above: Performed By: #### O HP, IOCAL ####[facility] [address] [place], [place] [phone] Director: Kan Craig MD FIO2 70 Normal [facility] Comment on above: Performed By: #### O HP, IOCAL ####[facility] [address] [place], [place] [phone] Director: Kan Craig MD Glucose [Mass/Vol] 206 mg/dL High 75-110 [facility] Comment on above: Performed By: #### O HP, IOCAL ####[facility] [address] [place], [place] [phone] Director: Kan Craig MD HCO3 (Bld) [Moles/Vol] 22.1 mmol/L Normal 22-27 [facility] Comment on above: Performed By: #### O HP, IOCAL ####[facility] [address] [place] [address] [phone] Director: Kan Craig MD Hematocrit (Bld) [Volume fraction] 47.0 % Normal 40.7-50.3 [facility] Comment on above: Performed By: #### O HP, IOCAL ####[facility] [address] [place] [address] [phone] Director: Kan Craig MD Hemoglobin (Bld) [Mass/Vol] 15.4 g/dL Normal 13.0-17.0 [facility] Comment on above: Performed By: #### O HP, IOCAL ####[facility] [address] [place] [address] [phone] Director: Kan Craig MD Negative Base Excess 2.7 mmol/L High 0.0-2.0 [facility] Comment on above: Performed By: #### O HP, IOCAL ####[facility] [address] [place], [place] [phone] Director: Kan Craig MD Oxygen (Bld) [Partial pressure] 305.0 mm[Hg] High 75-95 [facility] Comment on above: Performed By: #### O HP, IOCAL ####[facility] [address] [place], [place] [phone] Director: Kan Craig MD Oxygen saturation in Blood 98.7 % Normal 94-100 [facility] Comment on above: Performed By: #### O HP, IOCAL ####[facility] [address] [place], [place] [phone] Director: Kan Craig MD pCO2 40.2 mmHg Normal 32-45 [facility] Comment on above: Performed By: #### O HP, IOCAL ####[facility] [address] [place], [place] [phone] Director: Kan Craig MD pCO2 Adj'd for Temp 36.5 Normal 32-45 [facility] Comment on above: Performed By: #### O HP, IOCAL ####[facility] [address] [place] [address] [phone] Director: Kan Craig MD pH (Bld) 7.359 [pH] Normal 7.350-7.450 [facility] Comment on above: Performed By: #### O HP, IOCAL ####[facility] [address] [place], [place] [phone] Director: Kan Craig MD pH Adjst'd for Temp. 7.388 Normal 7.350-7.450 [facility] Comment on above: Performed By: #### O HP, IOCAL ####[facility] [address] [place] [address] [phone] Director: Kan Craig MD pO2 Adjst'd for Temp 295.0 mmHg High 75-95 [facility] Comment on above: Performed By: #### O HP, IOCAL ####[facility] [address] [place], [place] [phone] Director: Kan Craig MD Potassium [Moles/Vol] 4.0 mmol/L Normal 3.6-5.0 [facility] Comment on above: Performed By: #### O HP, IOCAL ####[facility] [address] [place] [address] Lab Director: Kan Craig MD Sodium [Moles/Vol] 137 mmol/L Normal 136-145 [facility] Comment on above: Performed By: #### O HP, IOCAL ####[facility] [address] [place] [address] Lab Director: Kan Craig MD Chloride [Moles/Vol] 111 mmol/L High 98-110 [facility] Comment on above: Performed By: #### O HP, IOCAL, LACTIC ####[facility] [address] [place] [address] Lab Director: Kan Craig MD Glucose [Mass/Vol] 165 mg/dL High 75-110 [facility] Comment on above: Performed By: #### O HP, IOCAL, LACTIC ####[facility] [address] [place] [address] Lab Director: Kan Craig MD HCO3 (Bld) [Moles/Vol] 22.3 mmol/L Normal 22-27 [facility] Comment on above: Performed By: #### O HP, IOCAL, LACTIC ####[facility] [address] [place] [address] Lab Director: aKn Craig MD Hematocrit (Bld) [Volume fraction] 47.3 % Normal 40.7-50.3 [facility] Comment on above: Performed By: #### O HP, IOCAL, LACTIC ####[facility] [address] [place] [address] Lab Director: Kan Craig MD Hemoglobin (Bld) [Mass/Vol] 15.4 g/dL Normal 13.0-17.0 [facility] Comment on above: Performed By: #### O HP, IOCAL, LACTIC ####[facility] [address] [place] [address] Lab Director: Kan Craig MD Oxygen saturation in Blood 98.3 % Normal 94-100 [facility] Comment on above: Performed By: #### O HP, IOCAL, LACTIC ####[facility] [address] [place], [place] [phone] Director: Kan Craig MD Potassium [Moles/Vol] 3.6 mmol/L Normal 3.6-5.0 [facility] Comment on above: Performed By: #### O HP, IOCAL, LACTIC ####[facility] [address] [place], [place] [phone] Director: Kan Craig MD Sodium [Moles/Vol] 141 mmol/L Normal 136-145 [facility] Comment on above: Performed By: #### O HP, IOCAL, LACTIC ####[facility] [address] [place], [place] [phone] Director: Kan Craig MD Carboxy Hgb 0.2 % Normal 0-5 [facility] Comment on above: Result Comment: Reference Range: Non-Smokers 0-2% Average Smoker 2-4% Heavy Smoker <10% Performed By: #### O HP, IOCAL, LACTIC ####[facility] [address] [place], [place] [phone] Director: Kan Craig MD FIO2 70% Normal [facility] Comment on above: Performed By: #### O HP, IOCAL, LACTIC ####[facility] [address] [place], [place] [id number])[phone] Director: Kan Craig MD Negative Base Excess 3.3 mmol/L High 0.0-2.0 [facility] Comment on above: Performed By: #### O HP, IOCAL, LACTIC ####[facility] [address] [place], [place] [phone] Director: Kan Craig MD Oxygen (Bld) [Partial pressure] 301.0 mm[Hg] High 75-95 [facility] Comment on above: Performed By: #### O HP, IOCAL, LACTIC ####[facility] [address] [place], [place] [phone] Director: Kan Craig MD pCO2 44.0 mmHg Normal 32-45 [facility] Comment on above: Performed By: #### O HP, IOCAL, LACTIC ####[facility] [address] [place] [address] Lab Director: Kan Craig MD pH (Bld) 7.326 [pH] Low 7.350-7.450 [facility] Comment on above: Performed By: #### O HP, IOCAL, LACTIC ####[facility] [address] [place] [address] Lab Director: Kan Craig MD Gabriel Test INFORMATION NOT PROVIDED Normal [facility] Comment on above: Performed By: #### I OCAL, OHP #### [facility] [address] [place] [address] [employer] Car Driver: Kan Craig MD Body Temp. 37.0 Normal [facility] Comment on above: Performed By: #### O HP, IOCAL, LACTIC ####[facility] [address] [place], [place] [phone] Director: Kan Craig MD Performed By: #### I OCAL, OHP #### [facility] [address] [place] [address] [employer] Car Driver: Kan Craig MD Carboxy Hgb 1.1 % Normal 0-5 [facility] Comment on above: Result Comment: Reference Range: Non-Smokers 0-2% Average Smoker 2-4% Heavy Smoker <10% Performed By: #### I OCAL, OHP #### [facility] [address] [place] [address] [employer] Driver: Kan Craig MD Chloride [Moles/Vol] 116 mmol/L High 98-110 [facility] Comment on above: Performed By: #### I OCAL, OHP #### [address] [address] [employer] Car Driver: Kan Craig MD FIO2 70 Normal [facility] Comment on above: Performed By: #### I OCAL, OHP #### [address] [address] [employer] Driver: Kan Craig MD Glucose [Mass/Vol] 150 mg/dL High 75-110 [facility] Comment on above: Performed By: #### I OCAL, OHP #### [address] [address] [employer] Car Driver: Kan Craig MD HCO3 (Bld) [Moles/Vol] 19.7 mmol/L Low 22-27 M [facility] Comment on above: Performed By: #### I OCAL, OHP #### [address] [address] Racing Car Driver: Kan Craig MD Hematocrit (Bld) [Volume fraction] 44.5 % Normal 40.7-50.3 [facility] Comment on above: Performed By: #### I OCAL, OHP #### [address] [address] [employer] Car Driver: Kan Craig MD Hemoglobin (Bld) [Mass/Vol] 14.5 g/dL Normal 13.0-17.0 [facility] Comment on above: Performed By: #### I OCAL, OHP #### [address] [address] Racing Car Driver: Kan Craig MD Negative Base Excess 5.1 mmol/L High 0.0-2.0 [facility] Comment on above: Performed By: #### I OCAL, OHP #### [facility] [employer] [address] [place] [address] [employer] Car Driver: Kan Craig MD Oxygen (Bld) [Partial pressure] 281.0 mm[Hg] High 75-95 [facility] Comment on above: Performed By: #### I OCAL, OHP #### [facility] [employer] [address] [place] [address] [employer] Car Driver: Kan Craig MD Oxygen saturation in Blood 98.6 % Normal 94-100 [facility] Comment on above: Performed By: #### I OCAL, OHP #### [facility] [employer] [address] [place] [address] [employer] Car Driver: Kan Craig MD pCO2 37.6 mmHg Normal 32-45 [facility] Comment on above: Performed By: #### I OCAL, OHP #### [facility] [employer] [address] [place] [address] [employer] Car Driver: Kan Craig MD pH (Bld) 7.338 [pH] Low 7.350-7.450 [facility] Comment on above: Performed By: #### I OCAL, OHP #### [facility] [employer] [address] [place] [address] Racing Car Driver: Kan Craig MD Potassium [Moles/Vol] 2.9 mmol/L Critically low 3.6-5.0 [facility] Comment on above: Performed By: #### I OCAL, OHP #### [facility] [address] [place] [address] [employer] Car Driver: Kan Craig MD Sodium [Moles/Vol] 140 mmol/L Normal 136-145 [facility] Comment on above: Performed By: #### I OCAL, OHP #### [employer] [address] [place] [address] [employer] Driver: Kan Craig MD POC Glucose Fingerstickon Glucose [Mass/Vol] 209 mg/dL High 75 - 110 mg/dL [facility] Interpretation and review of laboratory results Abnormal [facility] Glucose [Mass/Vol] 200 mg/dL High 75 - 110 mg/dL [facility] Interpretation and review of laboratory results Abnormal [facility] Glucose [Mass/Vol] 195 mg/dL High 75 - 110 mg/dL [facility] Interpretation and review of laboratory results Abnormal [facility] POCT Glucoseon 07-28-2023 Glucose [Mass/Vol] 156 mg/dL High 74 - 100 mg/dL [facility] Interpretation and review of laboratory results Abnormal [facility] POTASSIUM (POC)on 07-28-2023 Potassium [Moles/Vol] 3.9 mmol/L 3.5 - 4.5 mmol/L [facility] Potassium (POC)on 07-28-2023 Potassium [Moles/Vol] 3.9 mmol/L Normal 3.5-4.[address] [facility] [address] CHEST WO CONTRASTon 07-27 CT [...] spine with myelopathy (HCC) TECHNOLOGIST PROVIDED HISTORY: please include SAGITTAL up [...] Noel IV, MD 07/27/23 Final result Normal [facility] APTTon 07-10-2023 aPTT Coag (Bld) [Time] 28.5 s Normal 23.0-36.5 [facility] Comment on above: Result Comment: IV Heparin Therapy Range: 66.0-92.0 sec Performed By: #### B MP, PT, PTT, CDP ####[facility] [address] [place] [address] Lab Director: Kan Craig MD Basic Metabolic Profon 07-10 Anion gap [Moles/Vol] 13 mmol/L Normal 9-16 [facility] Comment on above: Performed By: #### B MP, PT, PTT, CDP ####[facility] [address] [place] [address] Lab Director: Kan Craig MD Calcium [Mass/Vol] 9.4 mg/dL Normal 8.6-10.4 [facility] Comment on above: Performed By: #### B MP, PT, PTT, CDP ####[facility] [address] [place] [address] [phone] Director: Kan Craig MD Chloride [Moles/Vol] 102 mmol/L Normal 98-107 [facility] Comment on above: Performed By: #### B MP, PT, PTT, CDP ####[facility] [address] [place] [address] Lab Director: Kan Craig MD CO2 [Moles/Vol] 24 mmol/L Normal 20-31 [facility] Comment on above: Performed By: #### B MP, PT, PTT, CDP ####[facility] [address] [place], [place] [phone] Director: Kan Craig MD Creatinine [Mass/Vol] 1.0 mg/dL Normal 0.70-1.20 [facility] Comment on above: Performed By: #### B MP, PT, PTT, CDP ####[facility] [address] [place] [address] [phone] Director: Kan Craig MD GFR/1.73 sq M.predicted among non-blacks MDRD (S/P/Bld) [Vol rate/Area] mL/min/{1.73_m2} Normal >60 [facility] Comment on above: Result Comment: [...] By: #### B MP, PT, PTT, CDP ####[facility] [address] [place] [address] Lab Director: Kan Craig MD Glucose [Mass/Vol] 114 mg/dL High 74-99 [facility] Comment on above: Performed By: #### B MP, PT, PTT, CDP ####[facility] [address] [place] [address] Lab Director: Kan Craig MD Potassium [Moles/Vol] 4.2 mmol/L Normal 3.7-5.3 [facility] Comment on above: Performed By: #### B MP, PT, PTT, CDP ####[facility] [address] [place] [address])[phone] Director: Kan Craig MD Sodium [Moles/Vol] 139 mmol/L Normal 136-145 [facility] Comment on above: Performed By: #### B MP, PT, PTT, CDP ####[facility] [address] [place] [address])[phone] Director: Kan Craig MD Urea nitrogen [Mass/Vol] 21 mg/dL Normal 8-23 [facility] Comment on above: Performed By: #### B MP, PT, PTT, CDP ####[place], [place] [address])[phone] Director: Kan Craig MD CBC with Diffon 07-10-2023 Abs. Basophil 0.11 k/uL Normal 0.00-0.20 [facility] Comment on above: Performed By: #### B MP, PT, PTT, CDP ####[address] [address])[phone] Director: Kan Craig MD Abs.Imm.Granulocyte 0.05 k/uL Normal 0.00-0.30 [facility] Comment on above: Performed By: #### B MP, PT, PTT, CDP ####[facility] [address] [place] [address])[phone] Director: Kan Craig MD Abs.Neutrophil (Seg) 3.72 k/uL Normal 1.50-8.10 [facility] Comment on above: Performed By: #### B MP, PT, PTT, CDP ####[facility] [address] [place], [place] [address])[phone] Director: Kan Craig MD Basophils/100 WBC (Bld) 2 % Normal 0-2 [facility] Comment on above: Performed By: #### B MP, PT, PTT, CDP ####[address] [address])[phone] Director: Kan Craig MD Eosinophils (Bld) [#/Vol] 0.16 10*3/uL Normal 0.00-0.44 [facility] Comment on above: Performed By: #### B MP, PT, PTT, CDP ####[address] [phone] Director: Kan Craig MD Eosinophils/100 WBC (Bld) 3 % Normal 1-4 [facility] Comment on above: Performed By: #### B MP, PT, PTT, CDP ####[address] [address])[phone] Director: Kan Craig MD Erythrocyte distribution width (RBC) [Ratio] 12.1 % Normal 11.8-14.4 [facility] Comment on above: Performed By: #### B MP, PT, PTT, CDP ####[address] [address])[phone] Director: Kan Craig MD Hematocrit (Bld) [Volume fraction] 49.3 % Normal 40.7-50.3 [facility] Comment on above: Performed By: #### B MP, PT, PTT, CDP ####[address] [address])[phone] Director: Kan Craig MD Hemoglobin (Bld) [Mass/Vol] 16.3 g/dL Normal 13.0-17.0 [facility] Comment on above: Performed By: #### B MP, PT, PTT, CDP ####[address] [phone] Director: Kan Craig MD Immature granulocytes/100 WBC (Bld) 1 % High 0 [facility] Comment on above: Performed By: #### B MP, PT, PTT, CDP ####[address] [address])[phone] Director: Kan Craig MD Lymphocytes (Bld) [#/Vol] 1.83 10*3/uL Normal 1.10-3.70 [facility] Comment on above: Performed By: #### B MP, PT, PTT, CDP ####[place], [place] [address])[phone] Director: Kan Craig MD Lymphocytes/100 WBC (Bld) 29 % Normal 24-43 [facility] Comment on above: Performed By: #### B MP, PT, PTT, CDP ####[address] [address])[phone] Director: Kan Craig MD MCH (RBC) [Entitic mass] 31.7 pg Normal 25.2-33.5 [facility] Comment on above: Performed By: #### B MP, PT, PTT, CDP ####[place], [place] [address])[phone] Director: Kan Craig MD MCHC (RBC) [Mass/Vol] 33.1 g/dL Normal 28.4-34.8 [facility] Comment on above: Performed By: #### B MP, PT, PTT, CDP ####[place], [place] [address])[phone] Director: Kan Craig MD MCV (RBC) [Entitic vol] 95.7 fL Normal 82.6-102.9 [facility] Comment on above: Performed By: #### B MP, PT, PTT, CDP ####[place] [address] [place], [place] [phone] Director: Kan Craig MD Monocytes (Bld) [#/Vol] 0.41 10*3/uL Normal 0.10-1.20 [facility] Comment on above: Performed By: #### B MP, PT, PTT, CDP ####[address] [phone])[phone] Director: Kan Craig MD Monocytes/100 WBC (Bld) 7 % Normal 3-12 [facility] Comment on above: Performed By: #### B MP, PT, PTT, CDP ####[address] [phone])[phone] Director: Kan Craig MD Neutrophil (Seg) 58 % Normal 36-65 [facility] Comment on above: Performed By: #### B MP, PT, PTT, CDP ####[address] [phone] Director: Kan Craig MD NRBC Automated 0.0 per 100 WBC Normal 0.0 [facility] Comment on above: Performed By: #### B MP, PT, PTT, CDP ####[address] [phone] Director: Kan Craig MD Platelet mean volume (Bld) [Entitic vol] 10.5 fL Normal 8.1-13.5 [facility] Comment on above: Performed By: #### B MP, PT, PTT, CDP ####[address] [phone] Director: Kan Craig MD Platelets (Bld) [#/Vol] 225 10*3/uL Normal 138-453 [facility] Comment on above: Performed By: #### B MP, PT, PTT, CDP ####[address] [phone] Director: Kan Craig MD RBC (Bld) [#/Vol] 5.15 10*6/uL Normal 4.21-5.77 [facility] Comment on above: Performed By: #### B MP, PT, PTT, CDP ####[facility] [address] [place] [address] Lab Director: Kan Craig MD WBC (Bld) [#/Vol] 6.3 10*3/uL Normal 3.5-11.3 [facility] Comment on above: Performed By: #### B MP, PT, PTT, CDP ####[facility] [address] [place] [address] [phone] Director: Kan Craig MD PTon 07-10-2023 INR Coag (PPP) [Relative time] 1.0 {INR} Normal [facility] Comment on above: Result Comment: Therapeutic Range: Moderate Anticoagulant Intensity: INR = 2.0-3.0 High Anticoagulant Intensity: INR = 2.5-3.5 Performed By: #### B MP, PT, PTT, CDP ####[facility] [address] [place] [address] [phone])[phone] Director: Kan Craig MD PT Coag (PPP) [Time] 12.7 s Normal 11.7-14.9 [facility] Comment on above: Performed By: #### B MP, PT, PTT, CDP ####[facility] [address] [place] [address] [id number])[phone] Director: Kan Craig MD Type + Screenon 07-10-2023 Type + Screen Sample Expiration 07/31/2023,2359 Arm Band Number BE [id number] ABO/Rh(D) B POSITIVE Antibody Screen NEGATIVE Normal [facility] Comment on above: Performed By: #### T YS #### [facility] [employer] [facility] [place] [address] [employer] Car Driver: Kan Craig MD Performed By: #### T YS ####[facility] [address] [place] [address] [phone] Director: Kan Craig MD Urinalysis, Routineon 2023 Bilirubin, SemiQt,Ur Negative Normal NEG [facility] Comment on above: Performed By: #### U A #### [address] [address] [employer] Car Driver: Kan Craig MD Blood, Urine Negative Normal NEG [facility] Comment on above: Performed By: #### U A #### [address] [address] [employer] Driver: Kan Craig MD Clarity (U) Clear Normal CLEAR [facility] Comment on above: Performed By: #### U A #### [address] [address] Racing Car Driver: Kan Craig MD Color (U) Yellow Normal YEL [facility] Comment on above: Performed By: #### U A #### [address] [address] [employer] Driver: Kan Craig MD Comment Microscopic exam not performed based on chemical results unless requested in Normal [facility] Comment on above: Result Comment: orig inal order. Performed By: #### U A #### [address] [address] [employer] Driver: Kan Craig MD Glucose Ql (U) 3+ mg/dL Abnormal NEG [facility] Comment on above: Performed By: #### U A #### [address] [address] [employer] Driver: Kan Craig MD Ketones Ql (U) Negative Normal NEG [facility] Comment on above: Performed By: #### U A #### [address] [address] [employer] Driver: Kan Craig MD Leukocyte esterase Test strip Ql (U) Negative Normal NEG [facility] Comment on above: Performed By: #### U A #### [address] [address] [employer] Driver: Kan Craig MD Nitrite,Ur Negative Normal NEG [facility] Comment on above: Performed By: #### U A #### [address] [address] [employer] Driver: Kan Craig MD PH,Ur 5.0 Normal 5.0-8.0 [facility] Comment on above: Performed By: #### U A #### [address] [address] [employer] Car Driver: Kan Craig MD Protein Ql (U) Negative Normal NEG [facility] Comment on above: Performed By: #### U A #### [address] [address] [employer] Driver: Kan Craig MD Spec. [place],Ur 1.029 Normal 1.005-1.030 [facility] Comment on above: Performed By: #### U A #### [address] [address] [employer] Driver: Kan Craig MD Urobilinogen,Ur Normal Normal 0.0-1.0 [facility] Comment on above: Performed By: #### U A #### [address] [address] Racing Car Driver: Kan Craig MD CT CERVICAL SPINE WO [...] Johan Bowers MD 06/07/23 Final result Normal [facility] Basic Metabolic Profon 05-19 Anion gap [Moles/Vol] 13 mmol/L Normal 9-[address] [facility] Comment on above: Performed By: #### C BC, BMP #### [facility] [address] [place] [address] [employer] Car Driver: Julio Martínez MD #### GLYHGB #### [address] [address] [employer] Driver: Kan Craig MD BUN/CRE Ratio 27 High 9-20 [facility] Comment on above: Performed By: #### C BC, BMP #### [facility] [address] [place] [address] [employer] Car Driver: Julio Martínez MD #### GLYHGB #### [address] [address] [employer] Car Driver: Kan Craig MD Calcium [Mass/Vol] 9.7 mg/dL Normal 8.6-10.4 [facility] Comment on above: Performed By: #### C BC, BMP #### [facility] [address] [place] [address] [employer] Car Driver: Julio Martínez MD #### GLYHGB #### [address] [address] [employer] Driver: Kan Craig MD Chloride [Moles/Vol] 103 mmol/L Normal 98-107 [facility] Comment on above: Performed By: #### C BC, BMP #### [facility] [address] [place] [address] Racing Car Driver: Julio Martínez MD #### GLYHGB #### [address] [address] [employer] Car Driver: Kan Craig MD CO2 [Moles/Vol] 24 mmol/L Normal 20-31 [facility] Comment on above: Performed By: #### C BC, BMP #### [facility] [address] [place] [address] [employer] Car Driver: Julio Martínez MD #### GLYHGB #### [address] [address] Racing Car Driver: Kan Craig MD Creatinine [Mass/Vol] 1.0 mg/dL Normal 0.7-1.[address] [facility] Comment on above: Performed By: #### C BC, BMP #### [facility] [address] [place] [address] [employer] Car Driver: Julio Martínez MD #### GLYHGB #### [address] [address] [employer] Driver: Kan Craig MD GFR/1.73 sq M.predicted among non-blacks MDRD (S/P/Bld) [Vol rate/Area] mL/min/{1.73_m2} Normal >60 [facility] Comment on above: Result Comment: [...] affects renal tubular secretion. Performed By: #### Nancy ROBLES, BMP #### [facility] [address] [place] [address] [phone] [employer] Driver: Julio Martínez MD #### GLYHGB #### [address] [phone] [employer] Driver: Kan Craig MD Glucose [Mass/Vol] 169 mg/dL High 70-99 [facility] Comment on above: Performed By: #### Nancy ROBLES, BMP #### [facility] [address] [place] [address] [employer] Driver: Julio Martínez MD #### GLYHGB #### [address] [address] [employer] Driver: Kan Craig MD Potassium [Moles/Vol] 4.1 mmol/L Normal 3.7-5.[address] [facility] Comment on above: Performed By: #### Nancy ROBLES, BMP #### [facility] [address] [place] [address] [employer] Driver: Julio Martínez MD #### GLYHGB #### [address] [address] [employer] Driver: Kan Craig MD Sodium [Moles/Vol] 140 mmol/L Normal 135-144 [facility] Comment on above: Performed By: #### Nancy ROBLES, BMP #### [facility] [place] [address] [employer] Driver: Julio Martínez MD #### GLYHGB #### [address] [address] [employer] Car Driver: Kan Craig MD Urea nitrogen [Mass/Vol] 27 mg/dL High 8-23 [facility] Comment on above: Performed By: #### Nancy ROBLES, BMP #### [facility] [address] [place] [address] [employer] Driver: Julio Martínez MD #### GLYHGB #### [address] [address] [employer] Driver: Kan Craig MD CBCon 05-19-2023 Erythrocyte distribution width (RBC) [Ratio] 13.6 % Normal 11.8-14.4 [facility] Comment on above: Performed By: #### Nancy ROBLES, BMP #### [facility] [address] [place] [address] [employer] Driver: Julio Martínez MD #### GLYHGB #### [address] [address] [employer] Driver: Kan Craig MD Hematocrit (Bld) [Volume fraction] 46.6 % Normal 40.7-50.3 [facility] Comment on above: Performed By: #### C TRAVIS, BMP #### [facility] [address] [place] [address] [employer] Driver: Julio Matrínez MD #### GLYHGB #### [address] [address] [employer] Driver: Kan Craig MD Hemoglobin (Bld) [Mass/Vol] 15.6 g/dL Normal 13.0-17.0 [facility] Comment on above: Performed By: #### C BC, BMP #### [facility] [address] [place] [address] [employer] Driver: Julio Martínez MD #### GLYHGB #### [address] [address] [employer] Driver: Kan Craig MD MCH (RBC) [Entitic mass] 31.9 pg Normal 25.2-33.5 [facility] Comment on above: Performed By: #### C BC, BMP #### [facility] [address] [place] [address] [phone] [employer] Driver: Julio Martínez MD #### GLYHGB #### [address] [address] [employer] Driver: Kan Craig MD MCHC (RBC) [Mass/Vol] 33.5 g/dL Normal 28.4-34.[address] [facility] Comment on above: Performed By: #### C BC, BMP #### [facility] [address] [place] [address] [employer] Driver: Julio Martínez MD #### GLYHGB #### [address] [address] [employer] Driver: Kan Craig MD MCV (RBC) [Entitic vol] 95.3 fL Normal 82.6-102.9 [facility] Comment on above: Performed By: #### C BC, BMP #### [facility] [address] [place] [address] [employer] Driver: Julio Martínez MD #### GLYHGB #### [address] [address] [employer] Car Driver: Kan Craig MD NRBC Automated 0.0 per 100 WBC Normal 0.0 [facility] Comment on above: Performed By: #### C BC, BMP #### [facility] [address] [place] [address] [employer] Driver: Julio Martínez MD #### GLYHGB #### [address] [address] [employer] Driver: Kan Craig MD Platelet mean volume (Bld) [Entitic vol] 10.7 fL Normal 8.1-13.5 [facility] Comment on above: Performed By: #### C BC, BMP #### [facility] [address] [place] [address] [employer] Driver: Jluio Martínez MD #### GLYHGB #### [address] [address] [employer] Driver: Kan Craig MD Platelets (Bld) [#/Vol] 255 10*3/uL Normal 138-453 [facility] Comment on above: Performed By: #### C BC, BMP #### [facility] [address] [place] [id number] Racing Car Driver: Julio Martínez MD #### GLYHGB #### [address] [address] Racing Car Driver: Kan Craig MD RBC (Bld) [#/Vol] 4.89 10*6/uL Normal 4.21-5.77 [facility] Comment on above: Performed By: #### C BC, BMP #### [facility] [address] [place] [address] Racing Car Driver: Julio Martínez MD #### GLYHGB #### [facility] [address] [place] [address] Racing Car Driver: Kan Craig MD WBC (Bld) [#/Vol] 6.3 10*3/uL Normal 3.5-11.3 [facility] Comment on above: Performed By: #### C BC, BMP #### [facility] [address] [place] [address] Racing Car Driver: Julio Martínez MD #### GLYHGB #### [address] [place] [address] Racing Car Driver: Kan Craig MD Hemoglobin A1Con 05-19-2023 Glucose [Mass/Vol] 151 mg/dL Normal [facility] Comment on above: Result Comment: The ADA and AACC recommend providing the estimated average glucose result to permit better patient understanding of their HBA1c result. Performed By: #### C TRAVIS, BMP #### [facility] [address] [place] [address] Racing Car Driver: Julio Martínez MD #### GLYHGB #### [facility] [address] [place] [address] Racing Car Driver: Kan Craig MD HbA1c (Bld) [Mass fraction] 6.9 % High 4.0-6.0 [facility] Comment on above: Performed By: #### C TRAVIS, BMP #### [facility] [address] [place] [address] Racing Car Driver: Julio Martínez MD #### GLYHGB #### [id number] [place] [address] Racing Car Driver: Kan Craig MD MRI CERVICAL SPINE WO [...] Tonja Malone MD 05/17/23 Final result Normal [facility] POINT OF CARE GLUCOSEon 10-10 Glucose [Mass/Vol] 159 mg/dL Critically high 74-106 [facility] Comment on above: Performed By: #### P OCGLUC #### [facility] [address] [address] [address] Cristal Goodwin POINT OF CARE GLUCOSEon 09-10 Glucose [Mass/Vol] 182 mg/dL Critically high 74-106 [facility] Comment on above: Performed By: #### P OCGLUC #### [facility] [address] [address] [address] Cristal Goodwin XR CSPINE 2_3 VIEWSon [...] by: WILL SOARES Date: 2022-09-15 10:31 Normal [facility] XR TSPINE 2 VIEWSon 09-16-19 XR [...] by: WILL SOARES Date: 2022-09-15 10:29 Normal [facility] POINT OF CARE GLUCOSEon 08-11 Glucose [Mass/Vol] 120 mg/dL Critically high 74-106 [facility] Comment on above: Performed By: #### P OCGLUC #### [facility] [address] [address] [address] Cristal Goodwin XR LSPINE MIN 4 [...] by: GUILLERMO AMADOR Date: 2022-08-10 07:23 Normal [facility] CT LUNG CANCER SCREENINGon 0 08-03-2022 [...] by: WILL SOARES Date: 2022-08-03 15:51 Normal [facility] BASIC METABOLIC PANELon 12-11 BUN/CREATININE RATIO NOT APPLICABLE Normal 6-22 [facility] Comment on above: Order Comment: FASTI NG:YES FASTING: YES Performed By: #### 4 96, [id number] #### [facility] [address], [address] [place] [address] Vp & General Counsel: Gelacio Alonso MD Calcium [Mass/Vol] 9.1 mg/dL Normal 8.6-10.3 [facility] Comment on above: Order Comment: FASTI NG:YES FASTING: YES Performed By: #### 4 96, 32209 #### [facility] [address], [address] [place] [address] Vp & General Counsel: Gelacio Alonso MD Chloride [Moles/Vol] 106 mmol/L Normal 98-110 [facility] Comment on above: Order Comment: FASTI NG:YES FASTING: YES Performed By: #### 4 96, 82160 #### [facility] [address], [address] [place] [address] Vp & General Counsel: Gelacio Alonso MD CO2 [Moles/Vol] 26 mmol/L Normal 20-32 [facility] Comment on above: Order Comment: FASTI NG:YES FASTING: YES Performed By: #### 4 96, 18941 #### [facility] [address] [address] Vp & General Counsel: Gelacio Aolnso MD Creatinine [Mass/Vol] 0.93 mg/dL Normal 0.70-1.35 [facility] [employer] Comment on above: Order Comment: FASTI NG:YES FASTING: YES Performed By: #### 4 96, 81476 #### [facility] [address], [address] [place] [address] Vp & General Counsel: Gelacio Alonso MD GFR/1.73 sq M.predicted among non-blacks MDRD (S/P/Bld) [Vol rate/Area] 93 mL/min/{1.73_m2} Normal > OR = 60 [facility] Comment on above: Order Comment: FASTI NG:YES FASTING: YES Result Comment: The eGFR is based on the CKD-EPI 2020 equation. To calculate the new eGFR from a previous Creatinine or Cystatin C result, go to https://www.kidney.org/professionals/ kdoqi/gfr%5Fcalculator Performed By: #### 4 96, 51433 #### [facility] [address] [address] Vp & General Counsel: Gelacio Alonso MD Glucose [Mass/Vol] 136 mg/dL High 65-99 [facility] Comment on above: Order Comment: FASTI NG:YES FASTING: YES Result Comment: Fasting reference interval For someone without known diabetes, a glucose value >125 mg/dL indicates that they may have diabetes and this should be confirmed with a follow-up test. Performed By: #### 4 96, 15894 #### [facility] [address] [address] Vp & General Counsel: Gelacio Alonso MD Potassium [Moles/Vol] 4.3 mmol/L Normal 3.5-5.3 [facility] Comment on above: Order Comment: FASTI NG:YES FASTING: YES Performed By: #### 4 96, 76177 #### [facility] [address], [address] [place] [address] Vp & General Counsel: Gelacio Alonso MD Sodium [Moles/Vol] 140 mmol/L Normal 135-146 [facility] Comment on above: Order Comment: FASTI NG:YES FASTING: YES Performed By: #### 4 96, 80626 #### [facility] [address] [address] Vp & General Counsel: Gelacio Alonso MD Urea nitrogen [Mass/Vol] 16 mg/dL Normal 7-25 [facility] Comment on above: Order Comment: FASTI NG:YES FASTING: YES Performed By: #### 4 96, 58958 #### [facility] [address] [address] Vp & General Counsel: Gelacio Alonso MD HEMOGLOBIN A1con 12-30-2021 HEMOGLOBIN [...] for children. Performed By: #### 4 96, 38049 #### [facility] [address], [address] [place] [address] Vp & General Counsel: Gelacio Alonso MD BASIC METABOLIC PANEL 05-12 BUN/CREATININE RATIO NOT APPLICABLE Normal - [facility] Comment on above: Order Comment: FASTI NG:YES FASTING: YES Performed By: #### 1 0165 #### [facility] [address] [address] Vp & General Counsel: Gelacio Alonso MD Calcium [Mass/Vol] 9.3 mg/dL Normal 8.6-10.3 [facility] Comment on above: Order Comment: FASTI NG:YES FASTING: YES Performed By: #### 1 0165 #### [facility] [address] [address] Vp & General Counsel: Gelacio Alonso MD Chloride [Moles/Vol] 109 mmol/L Normal 98-110 [facility] Comment on above: Order Comment: FASTI NG:YES FASTING: YES Performed By: #### 1 0165 #### [facility] [address] [address] Vp & General Counsel: Gelacio Alonso MD CO2 [Moles/Vol] 26 mmol/L Normal 20-32 [facility] Comment on above: Order Comment: FASTI NG:YES FASTING: YES Performed By: #### 1 0165 #### [facility] [address] [address] Vp & General Counsel: Gelacio Alonso MD Creatinine [Mass/Vol] 0.93 mg/dL Normal 0.70-1.[address] [facility] Comment on above: Order Comment: FASTI NG:YES FASTING: YES Result Comment: For patients >49 years of age, the reference limit for Creatinine is approximately 13% higher for people identified as -Nauruan. Performed By: #### 1 0165 #### [facility] [address], [address] [place] [address] Vp & General Counsel: Gelacio Alonso MD eGFR NON-AFR. BAHAMIAN 88 mL/min/1.73m2 Normal > OR = 60 [facility] Comment on above: Order Comment: FASTI NG:YES FASTING: YES Performed By: #### 1 0165 #### [facility] [address], [address] [place] [address] Vp & General Counsel: Gelacio Alonso MD GFR/1.73 sq M.predicted among blacks MDRD (S/P/Bld) [Vol rate/Area] 102 mL/min/{1.73_m2} Normal > OR = 60 [facility] Comment on above: Order Comment: FASTI NG:YES FASTING: YES Performed By: #### 1 0165 #### [facility] [address], [address] [place] [address] Vp & General Counsel: Gelacio Alonso MD Glucose [Mass/Vol] 122 mg/dL High 65-99 [facility] Comment on above: Order Comment: FASTI NG:YES FASTING: YES Result Comment: Fasting reference interval For someone without known diabetes, a glucose value between 100 and 125 mg/dL is consistent with prediabetes and should be confirmed with a follow-up test. Performed By: #### 1 0165 #### [facility] [address], [address] [place] [address] Vp & General Counsel: Gelacio Alonso MD Potassium [Moles/Vol] 4.5 mmol/L Normal 3.5-5.3 [employer] Comment on above: Order Comment: FASTI NG:YES FASTING: YES Performed By: #### 1 0165 #### [facility] [address], [address] [place] [address] Vp & General Counsel: Gelacio Alonso MD Sodium [Moles/Vol] 141 mmol/L Normal 135-146 [facility] Comment on above: Order Comment: FASTI NG:YES FASTING: YES Performed By: #### 1 0165 #### [facility] of [address] [address] Vp & General Counsel: Gelacio lAonso MD Urea nitrogen [Mass/Vol] 24 mg/dL Normal 7-25 [facility] Comment on above: Order Comment: FASTI NG:YES FASTING: YES Performed By: #### 1 0165 #### [facility] of [address], [address] [place] [address] Vp & General Counsel: Gelacio Alonso MD [facility] 02-04-2021 Albumin [Mass/Vol] 4.3 g/dL Normal 3.6-5.1 [facility] Comment on above: Performed By: #### 1 0231, 7600, 5363 #### [facility] [address] [address] Vp & General Counsel: Gelacio Alonso MD Albumin/Globulin [Mass ratio] 1.7 {ratio} Normal 1.0-2.5 [facility] Comment on above: Performed By: #### 1 0231, 7600, 5363 #### [facility] [address] [address] Vp & General Counsel: Gelacio Alonso MD ALP [Catalytic activity/Vol] 54 U/L Normal 35-144 [facility] Comment on above: Performed By: #### 1 0231, 7600, 5363 #### [facility] [address] [address] Vp & General Counsel: Gelacio Alonso MD ALT [Catalytic activity/Vol] 19 U/L Normal 9-46 [facility] Comment on above: Performed By: #### 1 0231, 7600, 5363 #### [facility] of [address] [address] Vp & General Counsel: Gelacio Alonso MD AST [Catalytic activity/Vol] 19 U/L Normal 10-35 [facility] Comment on above: Performed By: #### 1 0231, 7600, 5363 #### [facility] of [address], [address] [place] [address] Vp & General Counsel: Gelacio Alonso MD Bilirubin [Mass/Vol] 0.6 mg/dL Normal 0.2-1.2 [facility] Comment on above: Performed By: #### 1 023, 7599, 5363 #### [facility] of [address], [address] [place] [address] Vp & General Counsel: Gelacio Alonso MD BUN/CREATININE RATIO NOT APPLICABLE Normal 6-22 [facility] Comment on above: Performed By: #### 1 023, 7599, 5363 #### [facility] of [address], [address] [place] [address] Vp & General Counsel: Gelacio Alonso MD Calcium [Mass/Vol] 9.2 mg/dL Normal 8.6-10.3 [facility] Comment on above: Performed By: #### 1 023, 7599, 5363 #### [facility] of [address], [address] [place] [address] Vp & General Counsel: Gelacio Alonso MD Chloride [Moles/Vol] 106 mmol/L Normal 98-110 [facility] Comment on above: Performed By: #### 1 023, 7599, 5363 #### [facility] of [address], [address] [place] [address] Vp & General Counsel: Gelacio Alonso MD CO2 [Moles/Vol] 28 mmol/L Normal 20-32 [facility] Comment on above: Performed By: #### 1 023, 7599, 5363 #### [facility] of [address], [address] [place] [address] Vp & General Counsel: Gelacio Alonso MD Creatinine [Mass/Vol] 0.93 mg/dL Normal 0.70-1.[address] [facility] [address] [facility] Comment on above: Result Comment: For patients >49 years of age, the reference limit for Creatinine is approximately 13% higher for people identified as -Nauruan. Performed By: #### 1 0231, 7599, 5363 #### [facility] of [address], [address] [place] [address] Vp & General Counsel: Gelacio Aolnso MD eGFR NON-AFR. BAHAMIAN 88 mL/min/1.73m2 Normal > OR = 60 [facility] Comment on above: Performed By: #### 1 230, 7599, 5363 #### [facility] of [address] [address] Vp & General Counsel: Gelacio Alonso MD GFR/1.73 sq M.predicted among blacks MDRD (S/P/Bld) [Vol rate/Area] 102 mL/min/{1.73_m2} Normal > OR = 60 [facility] Comment on above: Performed By: #### 1 230, 7599, 5363 #### [facility] of [address], [address] [place] [address] Vp & General Counsel: Gelacio Alonso MD Globulin (S) [Mass/Vol] 2.5 g/dL Normal 1.9-3.7 [facility] Comment on above: Performed By: #### 1 230, 7599, 5363 #### [facility] of [address] [place] [address] Vp & General Counsel: Gelacio Alonso MD Glucose [Mass/Vol] 83 mg/dL Normal 65-99 [facility] Comment on above: Result Comment: Fasting reference interval Performed By: #### 1 230, 7599, 5363 #### [facility] of [address] [address] Vp & General Counsel: Gelacio Alonso MD Potassium [Moles/Vol] 4.5 mmol/L Normal 3.5-5.[address] [facility] Comment on above: Performed By: #### 1 023, 7599, 5363 #### [facility] of [address] [place] [address] Vp & General Counsel: Gelacio Alonso MD Protein [Mass/Vol] 6.8 g/dL Normal 6.1-8.1 [facility] Comment on above: Performed By: #### 1 023, 7600, 5363 #### [facility] of [address], [address] [place] [address] Vp & General Counsel: Gelacio Alonso MD Sodium [Moles/Vol] 141 mmol/L Normal 135-146 [facility] Comment on above: Performed By: #### 1 0231, 7600, 5363 #### [facility] of [address], [address] [place] [address] Vp & General Counsel: Gelacio Alonso MD Urea nitrogen [Mass/Vol] 20 mg/dL Normal 7-25 [facility] Comment on above: Performed By: #### 1 0231, 7600, 5363 #### [facility] of [address] [place] [address] Vp & General Counsel: Gelacio Alonso MD LIPID PANEL, [address] Cholesterol [Mass/Vol] 138 mg/dL Normal <200 [facility] Comment on above: Performed By: #### 1 0231, 7600, 5363 #### [facility] of [address], [address] [place] [address] Vp & General Counsel: Gelacio Alonso MD Cholesterol in HDL [Mass/Vol] 49 mg/dL Normal > OR = 40 [facility] Comment on above: Performed By: #### 1 0231, 7600, 5363 #### [facility] of [address] [place] [address] Vp & General Counsel: Gelacio Alonso MD Cholesterol in LDL [Mass/Vol] [...] LDL-C. Paul CHERRY et al. JULEE. 2013;310(19): 7495-0041 (http://education.8fit - Fitness for the rest of us.SwiftPayMD(TM) by [employer]/faq/NTQ560) Performed By: #### 1 230, 7599, 5363 #### [facility] [address] [place] [address] Vp & General Counsel: Gelacio Alonso MD Cholesterol.total/Chol esterol in HDL [Mass ratio] 2.8 {ratio} Normal <5.0 [facility] Comment on above: Performed By: #### 1 230, 7599, 5363 #### [facility] [address] [address] Vp & General Counsel: Gelacio Alonso MD NON HDL CHOLESTEROL 89 mg/dL (calc) Normal <130 [facility] Comment on above: Result Comment: For patients with diabetes plus 1 major ASCVD risk factor, treating to a non-HDL-C goal of <100 mg/dL (LDL-C of <70 mg/dL) is considered a therapeutic option. Performed By: #### 1 230, 7599, 5363 #### [facility] [address] [place] [address] Vp & General Counsel: Gelacio Alonso MD Triglyceride [Mass/Vol] 79 mg/dL Normal <150 [facility] Comment on above: Performed By: #### 1 230, 7599, 5363 #### [facility] [address] [place] [address] Vp & General Counsel: Gelacio Alonso MD PSA, TOTALon 02-04-2021 PSA, [...] absence of disease. Performed By: #### 1 230, 7599, 5363 #### [facility] [address] Vp & General Counsel: Gelacio Alonso MD Vital Signs Date Time Vital Sign Value Performing Clinician Indu machado 08-11-2023 10:59-0500 Body height 170.2 cm Day Obando APRN-GANDY DANCER [facility] 08-11-2023 10:59-0500 Body mass index (BMI) [Ratio] 34.22 kg/m2 Day Obando APRN-GANDY DANCER [facility] 08-11-2023 10:59-0500 Body temperature 97.5 [degF] Day Obando WOOD LATHE OPERATOR-GANDY DANCER Work Phone: [employer] 08-11-2023 10:59-0500 Body weight 99.11 kg Day Obando WOOD LATHE OPERATOR-GANDY DANCER Work Phone: [employer] 08-11-2023 10:59-0500 Diastolic blood pressure 78 mm[Hg] Day Obando WOOD LATHE OPERATOR-GANDY DANCER [facility] 08-11-2023 10:59-0500 Heart rate 84 /min Day Obando APRN-GANDY DANCER Work Phone: [employer] 08-11-2023 10:59-0500 SaO2% (BldA) [Mass fraction] 95 % Day Obando APRN-GANDY DANCER Work Phone: [employer] 08-11-2023 10:59-0500 Systolic blood pressure 112 mm[Hg] Day Obando APRN-GANDY DANCER Work Phone: [employer] 07-31-2023 12:42-0500 SaO2% (BldA) [Mass fraction] 92 % Mike Miguelangelmmad DO Work Phone: [employer] 07-31-2023 11:40-0500 Body temperature 98.6 [degF] Mike Ahammad DO Work Phone: [employer] 07-31-2023 11:40-0500 Diastolic blood pressure 64 mm[Hg] Mike [facility]ammad DO [facility] 07-31-2023 11:40-0500 Heart rate 115 /min Mike Ahammad DO Work [facility] 07-31-2023 11:40-0500 Respiratory rate 11 /min Mike Ahammad DO Work [facility] 07-31-2023 11:40-0500 Systolic blood pressure 102 mm[Hg] Mike Ahammad DO Work [facility] 07-28-2023 12:39-0500 Body temperature 35.0 Mike Ahammad DO Work Phone[facility] 07-28-2023 11:00-0500 Body temperature 37.0 Mike Ahammad DO Work [facility] 07-28-2023 10:16-0500 Body temperature 37.0 Mike Ahammad DO Work [facility] 07-28-2023 06:21-0500 Body height 170.2 cm Mike Ahammad DO [facility] 07-28-2023 06:21-0500 Body mass index (BMI) [Ratio] 33.52 kg/m2 Mike Ahammad DO Work Phone[facility] 07-28-2023 06:21-0500 Body weight 97.07 kg Mike Ahammad DO Work [facility] En[facility] Encounter Date Encounter Type Care Provider Facility Start: 04-29-2024 End: 04-29-2024 ambulatory Macey Monterroso MD Facility:[facility] Start: 04-17-2024 End: 04-17-2024 ambulatory [facility] Start: 04-15-2024 End: 04-15-2024 Orders Only Day Shaw Topher WOOD LATHE OPERATOR-GANDY DANCER Work Phone: [facility] Comment on above: Hypokalemia (Primary Dx) Start: 04-12-2024 End: 04-15-2024 Refill Day L Topher WOOD LATHE OPERATOR-GANDY DANCER Work Phone: [facility] Start: 03-25-2024 End: 03-25-2024 ambulatory Macey Monterroso MD Facility: [facility] Start: 03-13-2024 End: 03-14-2024 Refill Day L Topher WOOD LATHE OPERATOR-GANDY DANCER Work Phone: [facility] Start: 03-04-2024 End: 03-04-2024 ambulatory [facility] Start: 01-08-2024 End: 01-08-2024 ambulatory Macey Monterroso MD Facility: [address] Start: 12-28-2023 End: 12-28-2023 ambulatory [facility] Start: 12-01-2023 End: 12-01-2023 ambulatory [facility] Start: 11-27-2023 End: 11-29-2023 ambulatory [facility] Start: 11-27-2023 End: 11-29-2023 Subsequent hospital visit by physician Nikki Zucker [facility] Comment on above: Lumbar disc disease with radiculopathy Start: 11-23-2023 End: 11-25-2023 Subsequent hospital visit by physician Keke Mckeon Dr Room 4 [facility] Comment on above: 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) Start: 11-23-2023 End: 11-25-2023 ambulatory [facility] Start: 11-13-2023 End: 12-11-2023 ambulatory [facility] Start: 11-01-2023 End: 11-01-2023 ambulatory [facility] Start: 10-17-2023 End: 11-11-2023 ambulatory [facility] Start: 10-12-2023 End: 11-11-2023 ambulatory [facility] Start: 10-05-2023 End: 10-11-2023 ambulatory [facility] Start: 09-26-2023 End: 10-11-2023 ambulatory [facility] Start: 09-22-2023 End: 09-24-2023 ambulatory [facility] Start: 09-11-2023 End: 10-11-2023 ambulatory [facility] Start: 08-25-2023 Refill Day Obando WOOD LATHE OPERATOR-GANDY DANCER Work Phone: [facility] Start: 08-22-2023 Orders Only Day Shaw Obando WOOD LATHE OPERATOR-GANDY DANCER Work Phone: [facility] Start: 08-14-2023 End: 09-11-2023 ambulatory [facility] Start: 08-11-2023 End: 08-11-2023 Transitional care manage srvc 14 day discharge Day Shaw Obando WOOD LATHE OPERATOR-GANDY DANCER Work Phone: [facility] Comment on above: Type 2 diabetes ricardo itus without complication, without long- term current use of insulin ([facility]) (Primary Dx); Essential hypertension Start: 08-11-2023 End: 08-11-2023 ambulatory [facility] Start: 08-07-2023 End: 08-11-2023 ambulatory [facility] Start: 07-28-2023 End: 07-31-2023 Evaluation and management of inpatient Mike Powell DO Work Phone: [address] [facility] Comment on above: 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) (Primary Dx) Start: 07-27-2023 End: 07-29-2023 ambulatory [facility] Start: 07-10-2023 End: 07-14-2023 ambulatory [facility] Start: 07-10-2023 End: 07-14-2023 Encounter for other preprocedural examination [facility] Start: 06-29-2023 End: 06-29-2023 ambulatory [facility] Start: 06-14-2023 Refill [facility] WOOD LATHE OPERATOR-GANDY DANCER Work Phone: [facility] Start: 06-07-2023 End: 06-09-2023 ambulatory [facility] Start: 05-19-2023 End: 05-24-2023 ambulatory [facility] Start: 05-15-2023 End: 05-17-2023 ambulatory [facility] Start: 12-08-2022 ambulatory NARENDRANATH LAKSHMIPATHY . Facility:[facility]1 [...] 01-20-2022 End: 01-21-[address] WALTER LITTLEJOHN Facility: Procedures Date Procedure Procedure Detail Performing Clinician Start: 12-28-2023 Adult depression scr eening assessment Day Obando WOOD LATHE OPERATOR-GANDY DANCER Work Phone: Start: 11-27-2023 Radex spine lumbosac ral only bending 2/3 views Mike Ahammad DO Work Phone: Start: 08-11-2023 Follow-up visit Follow-up DAY OBANDO Start: 08-11-2023 Adult depression scr eening assessment Day Obando WOOD LATHE OPERATOR-GANDY DANCER Work Phone: Start: 07-31-2023 Glucose blood reagen [...] Adult depression scr eening assessment Day Obando WOOD LATHE OPERATOR-GANDY DANCER Work Phone: Plan of Treatment Date Care Activity Detail Author Start: 01-11-2026 Screening for malign ant neoplasm of colon Colon Cancer Screening 3 Year Cologuard [facility] Start: 03-03-2025 DTaP,Tdap and Td Vaccines (4 - Td or Tdap) DTaP,Tdap and Td Vaccines (4 - Td or Tdap) [facility] Start: 03-03-2025 DTaP/Tdap/Td vaccine (4 - Td or Tdap) DTaP/Tdap/Td vaccine (4 - Td or Tdap) [facility] Start: 12-27-2024 Adult BMI Screening Adult BMI Screen ing [facility] Start: 12-27-2024 Depression Screening Depression Scre [facility] Start: 12-27-2024 Fall Risk Screening Fall Risk Screen ing [facility] Start: 12-27-2024 Tobacco Screening Tobacco Screening [facility] Start: 08-10-2024 Adult BMI Screening Adult BMI Screen ing [facility] Start: 08-10-2024 Depression Screening Depression Scre [facility] Start: 08-10-2024 Tobacco Screening Tobacco Screening [facility] Start: 07-31-2024 GFR test (Diabetes, CKD 3-4, OR last GFR 15-59) GFR test (Diabetes, CKD 3-4, OR last GFR 15-59) [facility] Start: 07-31-2024 Lipid panel Lipids [facility] Start: 07-29-2024 Hemoglobin A1c measurement A1C test (Diabetic or Prediabetic) [facility] Start: 03-30-2024 Adult BMI Screening Adult BMI Screen ing [facility] Start: 03-30-2024 Depression Screening Depression Scre ening [facility] Start: 03-30-2024 Tobacco Screening Tobacco Screening [facility] Start: 02-19-2024 End: 02-19-2024 Patient encounter procedure 02/19/2024 1:30 PM EDT Office Visit [facility] [address] [place] [address] [address] Floor, [address] [place] [address] Mike Townsend DO [address] [facility] [address] [place] [address] Scoli & Flex ext xrays [facility] Comment on above: Scoli [employer] Flex ext xra ys Start: 02-11-2024 COVID-19 Vaccine ( season) COVID-19 Vaccine ( season) [facility] Start: 02-11-2024 COVID-19 Vaccine ( season) COVID-19 Vaccine ( season) [facility] Start: 02-11-2024 Influenza vaccination Influenza Vacc ine [facility] Start: 01-26-2024 Abdominal aortic aneurysm screening Abdominal Aortic Aneurysm (AAA) Screen [facility] Start: 01-11-2024 Influenza vaccination Flu vacc ine (Season Ended) [facility] Start: 11-27-2023 End: 11-27-2023 Patient encounter procedure 11/27/2023 11:00 AM EDT Office Visit [facility] [address] [facility] [address], [address] [place] [address] Kristian Mike, DO [address] [place] [address] Print PT OT [facility] Comment on above: Print PT OT Start: 11-10-2023 End: 11-10-2023 Patient encounter procedure 11/10/2023 8:40 AM EDT Office Visit [facility] [address] [place] [address] Day Obando, WOOD LATHE OPERATOR-GANDY DANCER [address] [place] [address] [facility] Start: 09-25-2023 End: 09-25-2023 Patient encounter procedure 09/25/2023 11:00 AM EDT Office Visit [facility] [address] Floor, [place] [place] [id number] Mike Townsend, DO [address] [place] [address] 8 wk post op [facility] Comment on above: 8 wk post op Start: 08-14-2023 End: 08-14-2023 Patient encounter procedure 08/14/2023 9:30 AM EST Office Visit [facility] [address] - [address] Floor, [address] [place] [address] Bethany Hwang, WOOD LATHE OPERATOR - GANDY DANCER [address] [place], [place] [id number] 2 wk post op-ahammad [facility] Comment on above: 2 wk post op-ahammad Start: 06-29-2023 End: 06-29-2023 Patient encounter procedure 06/29/2023 9:00 AM EST [facility] [address] [place] [address] Day Obando APRN-GANDY DANCER [address] [place] [address] [facility] Start: 02-10-2023 COVID-19 Vaccine ( season) COVID-19 Vaccine ( season) [facility] Start: 02-10-2023 Influenza vaccination Influenza Vacc ine [facility] Start: 01-10-2023 Influenza vaccination Flu vaccine (# 1) [facility] Start: 2019 Respiratory Syncytia l Virus (RSV) or age 60 yrs+ (1 - 1-dose 60+ series) Respiratory Syncytial Virus (RSV) or age 60 yrs+ (1 - 1-dose 60+ series) [facility] [employer] Start: 2009 Administration of varicella zoster vaccine Zoster (Shingles) Vaccine (1 of 2) [facility] Start: 2009 Screening for malign ant neoplasm of lung Low dose CT lung screening &/or counseling [facility] Start: 2009 Shingles vaccine (1 of 2) Shingles vaccine (1 of 2) [facility] [employer] (ChatAnd) [facility] Start: 01-26-2004 Screening for malign ant neoplasm of colon [facility] [employer] Start: 1977 Adult BMI Follow Up Plan Adult BMI Follow Up Plan [facility] Start: 1977 Diabetic foot examination Diabetic Foot Exam [facility] Start: 1977 Glaucoma screening Diabetic retinal exam [facility] Start: 1977 Hepatitis C screening Hepatitis C sc reen [facility] Start: 1977 Urine screening for protein Diabetic Alb to Cr ratio (uACR) test [facility] [employer] ([employer]And) [facility] Start: 1974 HIV screening HIV screen [facility] [employer] Start: 1971 Depression Screen Depression Screen [facility] [employer] (ChatAnd) [facility] Start: 1969 Diabetic foot examination Diabetic foot exam [employer] Start: 1965 Pneumococcal 0-64 ye ars Vaccine (1 - PCV) Pneumococcal 0-64 years Vaccine (1 - PCV) [facility] Start: 1965 Pneumococcal 0-64 ye ars Vaccine (1 of 2 - PCV) Pneumococcal 0-64 years Vaccine (1 of 2 - PCV) [facility] Start: 1959 COVID-19 Vaccine (#1) COVID-19 Vacci ne (#1) [facility] Start: 1959 Glaucoma screening Diabetic Op hthalmology Exam [facility] Start: 1959 Urine screening for protein Urine Microalbumin [facility] [employer] [facility] End: 04-15-2025 Basic metabolic 2000 panel - Serum or Plasma Basic Metabolic Panel Lab Routine Hypokalemia 1 Occurrences starting 04/15/2024 until 04/15/2025 Pro[facility] Work Phone: Comment on above: 1 Occurrences starti ng 04/15/2024 until 04/15/2025 End: 07-28-2023 Glucose [Mass/volume] in Serum or Plasma [facility] Comment on above: 4X Daily (AC & HS) u ntil discontinued starting 07/28/2023 One Time for 1 Occur rences starting 07/28/2023 until 07/28/2023 As Needed until disc ontinued starting 07/28/2023 Oxygen therapy [[facility] Data Set] Initiate Oxygen Therapy Protocol Respiratory Care Routine As Needed until discontinued starting 07/28/2023 [employer] Comment on above: As Needed until disc ontinued starting 07/28/2023 Spirometry panel Incentive jerome metry Respiratory Care Routine Every 2hr while awake until discontinued starting 07/28/2023 [employer] Comment on above: Every 2hr while awak e until discontinued starting 07/28/2023 Spirometry panel Incentive jerome metry RT Respiratory Care Routine Every 2hr while awake until discontinued starting 07/29/2023 [employer] Comment on above: Every 2hr while awak e until discontinued starting 07/29/2023 End: 11-23-2023 XR Cervical spine 2 or 3 Views [employer] Work Phone: Comment on above: 1 Occurrences starti ng 11/23/2023 until 11/23/2023 Immunizations Immunization Date Immunization Notes Care Provider Gilma pepe 03-03-2015 tetanus toxoid, redu latricia diphtheria toxoid, and acellular pertussis vaccine, adsorbed Day Topher WOOD LATHE OPERATOR-GANDY DANCER [facility] 05-[facility]-2013 tetanus toxoid, redu latricia diphtheria toxoid, and acellular pertussis vaccine, adsorbed Day Topher WOOD LATHE OPERATOR-GANDY DANCER [facility] 07-05-2011 tetanus toxoid, redu latricia diphtheria toxoid, and acellular pertussis vaccine, adsorbed Day Topher WOOD LATHE OPERATOR-GANDY DANCER Work Phone: [employer] Work Phone: Payers Date Payer Category Payer Managed Care Other (unspecified) [employer] [id number] 2022 Private Health Insurance [facility] [employer] [id number] 2022-Present [phone] [address] [address] [place] [address] [id number] 2022 Unknown 1959 Medicare [id number] 1959 Unknown [id number] 1959 Unknown [id number] 1959 Unknown [id number] 2.16.840.1.992724.3.579. 2.593 1959 Unknown [id number] 2.16.840.1.524311.3.579. 2.593 1959 Unknown [id number] 2.16.840.1.578400.3.579. 2.593 1959 Unknown [id number] 2.16.840.1.679525.3.579. 2.593 1959 Unknown [id number] 2.16.840.1.179530.3.579. 2.593 1959 Unknown [id number] 2..840.1.077249.3.579. 2.593 1959 Unknown [id number] 2..840.1.321656.3.579. 2.593 1959 Unknown [id number] 2..840.1.829220.3.579. 2.593 1959 Unknown [id number] 2..840.1.888893.3.579. 2.593 1959 Unknown [id number] 2..840.1.839941.3.579. 2.593 1959 Unknown [id number] 2..840.1.612555.3.579. 2.593 1959 Unknown [id number] 2..840.1.182166.3.579. 2.593 1959 Unknown [id number] 2..840.1.493375.3.579. 2.593 1959 Unknown [id number] 2.16.840.1.578574.3.579. 2.593 1959 Unknown [id number] 2.16.840.1.848232.3.579. 2.177 1959 Unknown [id number] 2.16.840.1.020221.3.579. 2.173 1959 Unknown [id number] 2.16.840.1.789117.3.579. 2.173 1959 Unknown [id number] 2.16.840.1.204199.3.579. 2.173 1959 Unknown [id number] 2.16.840.1.645691.3.579. 2.173 1959 Unknown [id number] 2.16.840.1.024366.3.579. 2.173 1959 Unknown [id number] 2.16.840.1.074015.3.579. 2.1286 1959 Unknown [id number] 2.16.840.1.201991.3.579. 2.1286 1959 Unknown [id number] 2.16.840.1.275193.3.579. 2.1285 1959 Unknown [id number] 2.16.840.1.169968.3.579. 2.1286 1959 Unknown [id number] 2.16.840.1.609064.3.579. 2.1286 1959 Unknown [id number] 2.16.840.1.194387.3.579. 2.175 1959 Unknown [id number] 2.16.840.1.794935.3.579. 2.175 1959 Unknown [id number] 2.16.840.1.071021.3.579. 2.175 1959 Unknown [id number] 2.16.840.1.902740.3.579. 2.175 1959 Unknown [id number] 2.16.840.1.697164.3.579. 2.175 1959 Unknown [id number] 2.16.840.1.765742.3.579. 2.175 1959 Unknown [id number] 2.16.840.1.032246.3.579. 2.1285 1959 Unknown [id number] 2.16.840.1.164651.3.579. 2.1285 1959 Unknown [id number] 2.16.840.1.309320.3.579. 2.1285 1959 Unknown [id number] 2.16.840.1.006218.3.579. 2.1285 1959 Unknown [id number] 2.16.840.1.414853.3.579. 2.1285 1959 Unknown [id number] 2.16.840.1.261723.3.579. 2.1285 1959 Unknown [id number] 2.16.840.1.728914.3.579. 2.1285 1959 Unknown [id number] 2.16.840.1.921806.3.579. 2.1285 1959 Unknown [id number] 2.16.840.1.293716.3.579. 2.1285 1959 Unknown [id number] 2.16.840.1.468389.3.579. 2.196 1959 Unknown [id number] 2.16.840.1.455467.3.579. 2.196 1959 Unknown [id number] 2.16840.1.240097.3.579. 2.196 1959 Unknown [id number] 2.16840.1.695536.3.579. 2.196 Social History Date Type Detail Facility Start: 07-07-2022 End: 11-01-2023 Tobacco smoking status NHIS Ex-smoker [facility] Start: 06-18-1998 End: 06-18-2018 History of tobacco use Current smoker [facility] Start: 06-18-1998 End: 06-18-2018 History of tobacco use Cigarette Smoker [facility] Start: 07-23-2020 End: 07-07-2022 Cigarettes smoked current (pack per day) - Reported 1.5 [facility] Start: 07-07-2022 End: 11-01-2023 Tobacco use and exposure Smokeless tobacco non-user [facility] Start: 03-30-2023 End: 12-28-2023 Alcohol intake Current non-drinker of alcohol (finding) [facility] Start: 09-17-2018 End: 07-23-2020 Alcohol Use Disorder Identification Test - Consumption [AUDIT-C] [facility] Frequency of Alcohol Consumption Never [facility] Start: 1960 Sex Assigned At Not on file [facility] Start: 07-31-2023 End: 08-14-2023 Alcohol intake Lifetime non-drinker (finding) [employer] Has the electric, [employer], oil, or water company threatened to shut off services in your home in past 12Mo No [employer] (I/We) worried florian er (my/our) food would run out before (I/we) got money to buy more. Never true [employer] Start: 01-15-2015 Sex Male (finding) [facility] Medical Equipment Procedure Code Equipment Code Equipment Origin al Text Equipment Identifier Dates Brng Tib 66uqd85 mm 0d Kn Ant - [id number] Start: 03-27-2019 Cmnt Bn Bio 40gm Rpl [id number] - [id number] Start: 03-27-2019 Cmpt Ptlr Thn 31 mm 3 Pg Kn Ser - [id number] Start: 03-27-2019 Impl Spine Chapin Symphony 4.0mm 240mm - [id number] Start: 07-28-2023 Screw Spnl Polya x 5.5x30 Mm Oct For 4 Mm Chapin Ns Sym - [id number] Start: 07-28-2023 Screw Spnl Polya x 5.5x32 Mm Oct For 4 Mm Chapin Ns Sym - [id number] Start: 07-28-2023 Screw Spnl 3.5x1 4mm Symphony - [id number] Start: 07-28-2023 Screw Spinal F/Symphony Oct System - [id number] Start: 07-28-2023 Cmpt Fem Kn Lt 72.5mm Cr Cmnt - [id number] Start: 03-27-2019 Ty Tib 75mm Cocr Kn I Beam - [id number] Start: 03-27-2019 Goals Date Patient Goal [...] was checked so I sent BMP to [facility] - he can get this drawn at his convenience. documented in this encounter [facility] 04-12-2024 Telephone encounter Note It has been since Jul since his potassium was checked so I sent BMP to [facility] - he can get this drawn at his convenience. [facility] 08-11-2023 History of Present illness Narrative Images [...] and headaches. Objective Physical Exam Vitals reviewed. Radiology Administrator present: Here with spouse. Constitutional: General: He [...] complication, without long-term current use of insulin ([facility]) Essential hypertension Other orders - [...] Contreras 08/14/23 1023 documented in this encounter [facility] 07-31-2023 Hospital course Narrative Images from the [...] I10 Type 2 diabetes mellitus ([facility]) E11.9 DISPOSITION: Home PROCEDURES: Posterior [...] as: KLOR-CON Vitamin D3 50 MCG (1999 AL) Caps STOP taking these medications HYDROcodone-acetaminophen 5-325 [...] Your Medications These medications were sent to [address] - [phone] - F [phone] [place] [address] metoprolol tartrate 25 MG tablet oxyCODONE-acetaminophen 5-325 MG per tablet Diet: ADULT DIET; Regular; 4 carb choices (60 gm/meal) diet as tolerated Activity: Provided in AVS Wound Care: Daily and as needed Follow-up: in the NSG clinic as shown in AVS Time Spent for discharge: 30 minutes JULIETTE Dominique CNP 07/31/2023, 1:19 PM documented in this encounter [facility] 07-31-2023 History of Present illness Narrative Physical Therapy Facility/Department: [address] NEURO Physical Therapy Progress Note Name: [...] from the original note were not included. [facility] Internal Medicine Teaching Residency Program Inpatient Daily Progress Note Patient: Beau Ocasio Date of : 1960 Acct: [id number] Room: [address] [place] [address] Admit date: 07/28/2023 Today's date: 07/31/23 Number [...] medical standpoint Soraida Frias PGY-3 Internal Medicine [place], [place] 11:02 AM 07/31/2023 Attestation and add [...] documented by the [place] [address]. Answering Service: Images from the original note [...] 105 (!) 115 (!) 103 Resp: 10 25 05 16 Temp: 98.4 F (36.9 C) 97.9 [...] X.Serafin Palomino DO Neurosurgeon Neurosurgical oncologist Office: [phone] Cell: [phone] Images from the original note were not included. [facility] Internal Medicine Teaching Residency Program Inpatient Daily Progress Note Patient: Beau Ocasio Date of : 1960 Acct: [id number] Room: [facility]- Admit date: 07/28/2023 Today's date: 07/30/23 Number [...] OT on board Discharge Planning / SW: compensation manager discharge planning Terri Ayala MD Internal Medicine Resident, PGY-1 [facility] [place], [place] 07/30/2023, 7:00 AM Attestation and add [...] the resident. Prgressing satisfactorily Jude Rothman MD [address] [address]. Answering Service: [facility] PROGRESS NOTE Shift date: 07/29/2023 Shift day: Monday Shift # 2 Room # 0101/0101-01 Name: Beau Ocasio Christianity: Place of synagogue: Referral: Routine Visit Admit Date & Time: 07/28/2023 5:37 AM Assessment: Beau Ocasio is a 63 y.o. male in the hospital . Patient had family support present in room and appeared calm and coping. Intervention: Colorer Hides And Skins introduced self and title as conductor pullman. Patient did not appear to mind conductor pullman presence and engaged in conversation. Asian Art Curator provided a supportive presence through active listening and words of affirmation. Outcome: Patient appeared receptive to conductor pullman visit. Plan: Chaplains will remain available to offer spiritual and emotional support as needed. . [facility] [phone] Physical Therapy Facility/Department: [address] NEURO Physical Therapy Initial Assessment Name: Beau Ocasio : 1960 Date of Service: 07/29/2023 Pt admitted for C2-T2 POSTERIOR FUSION, DECOMPRESSION (LEXII SPINE TABLE, PRONE, LI HEADHOLDER, C-ARM, O-ARM, SSEP MONITORING, SemiLev, [employer] NAVIGATION done 07/28/23. Discharge Recommendations: In my [...] transfers CG+1, gait 120' CG+1, forward posture, [place] collar. Body Structures, Functions, Activity Limitations Requiring [...] d/t LE weakness/pain) Transfer Assistance: Independent Active Seismograph Computer: Yes Vision/Hearing Vision Vision: Impaired Vision Exceptions: [...] Fair;- Comments: with rwalker Exercise Treatment: ankle [id number] A/AROM Exercises: AAROM B hips, limited by [...] X.Serafin Palomino DO Neurosurgeon Neurosurgical oncologist Office: [phone] Cell: [phone] Images from the original note were not included. [facility] Internal Medicine Teaching Residency Program Inpatient Daily Progress Note Patient: Beau Ocasio Date of : 1960 Acct: [id number] Room: 0101/0101-01 Admit date: 07/28/2023 Today's date: [...] hypertension: Blood pressure well under control 1 37/ At home on Norvasc 10, lisinopril hydrochlorothiazide [...] OT on board Discharge Planning / SW: compensation manager discharge planning Terri Ayala MD Internal Medicine Resident, PGY-1 [facility] [place], [place] 07/29/2023, 5:09 AM Attestation and add [...] 166* BP control satisfactory [place] [address]. Answering Service: Neurosurgery Post op Progress Note [...] in house. documented in this encounter [facility] 07-31-2023 Hospital Discharge instructions Soraida Frias MD [...] or concerns. The office phone number is [phone]. documented in this encounter [facility] 09-15-2022 Note CONSULTATION CONSULTATION DATE: [...] our patients to inform us about any wubv-bvn-rmrxhnc medications or herbal remedies/nutritional supplements/alternative remedies. 2. [...] options with their primary care provider. [facility] 08-09-2022 Note PROCEDURE: XR KNEE R T 3V COMPARISON: None. HISTORY: Pain of right knee joint FINDINGS: BONES:No acute fracture or dislocation. Mild degenerative osteoarthropathy with mild atrophy. SOFT TISSUES:Negative. No visible soft tissue swelling. EFFUSION:None visible. OTHER: Negative. IMPRESSION: Mild osteoarthritis Electronically authenticated by: GUILLERMO AMADOR Date: 2022-08-09 17:19 [facility] 08-09-2022 Note PAIN MANAGEMENT CONS ULTATION [...] under fluoroscopic guidance. Will as well. [facility] 04-21-2022 Note CONSULTATION CONSULTATION DATE: 04/21/2022 [...] up in the office post procedure. [facility] 01-20-2022 Note CONSULTATION CONSULTATION DATE: 01/20/2022 [...] agrees with the plan of care. [facility] Evaluation note Diagnosis 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)- Primary 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) Primary hypertension Unspecified essential hypertension Type 2 diabetes mellitus (HCC) Type II or unspecified type diabetes mellitus without mention of complication, not stated as uncontrolled [facility] Diagnosis Type 2 diabetes mellitus without complication, without long-term current use of insulin ([facility] Primary Essential hypertension Unspecified essential hypertension [facility] 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) [facility] Diagnosis Lumbar disc disease with radiculopathy Displacement of lumbar intervertebral disc without myelopathy [facility] Diagnosis Hypokalemia- Primary Hypopotassemia documented in [...] cervical spine with myelopathy (HCC) Pedro Mitchell, WOOD LATHE OPERATOR - GANDY DANCER [address] [place] [id number] Referral ID Status Reason Start Date Expiration Date Visits Requested Visits Authorized [id number] Pending Review Specialty Services Required 07/31/2023 01/27/2024 [...] CREATED AUTHOR AUTHOR'S ORGANIZ ATION 10/27/[address] [facility] DATE CREATED AUTHOR AUTHOR'S ORGANIZ ATION 05/26/2023 [facility] DATE CREATED AUTHOR AUTHOR'S ORGANIZ ATION 11/28/2023 [facility] DATE CREATED AUTHOR AUTHOR'S ORGANIZ ATION 01/01/2024 [facility] DATE CREATED AUTHOR AUTHOR'S ORGANIZ ATION 02/20/[address] [facility] DATE CREATED AUTHOR AUTHOR'S ORGANIZ ATION 04/19/2024 [facility] DATE CREATED AUTHOR AUTHOR'S ORGANIZ ATION 05/04/2024 [facility] Reason for Visit (unrecogniz ed section and content) Reason Comments Med Refill Specialty Diagnoses / Procedures Referred By Contac t Referred To Contact Diagnoses 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) 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) [M48.02, G99.2] Procedures NH ARTHRD PST/PSTLAT TQ 1NTRSPC CRV BELW C2 SEGMENT NH ALLOGRAFT FOR SPINE SURGERY ONLY MORSELIZED NH AUTOGRAFT SPINE SURGERY LOCAL FROM SAME INCISION NH MICROSURG TQS REQ USE OPERATING MICROSCOPE NH STEREOTACTIC COMPUTER ASSISTED PX SPINAL NH LAMINECTOMY W/O FFD > 2 VERT SEG CERVICAL NH ARTHRODESIS PST/PSTLAT TQ 1NTRSPC EA ADDL NTRSPC NH ARTHRODESIS PST/PSTLAT TQ 1NTRSPC EA ADDL NTRSPC NH ARTHRODESIS PST/PSTLAT TQ 1NTRSPC EA ADDL NTRSPC NH ARTHRODESIS PST/PSTLAT TQ 1NTRSPC EA ADDL NTRSPC NH ARTHRODESIS PST/PSTLAT TQ 1NTRSPC EA ADDL NTRSPC NH ARTHRODESIS PST/PSTLAT TQ 1NTRSPC EA ADDL NTRSPC NH POSTERIOR SEGMENTAL INSTRUMENTATION 7-12 VRT SEG C2-T2 POSTERIOR FUSION, DECOMPRESSION ([place] SPINE TABLE, PRONE, [place] HEADHOLDER, C-ARM, O-ARM, SSEP MONITORING, SemiLev, [employer]e NAVIGATION, [facility] CONF# [id number]) *DR. YODER TO ASSIST* SHORT STAY Letha TownsendubaDO jordan [facility] [address] [place] [address] [facility] [address] [place] [address] Referral ID Status Reason Start Date Expiration Date Visits Re quested Visits Authorized [id number] 1 1 Reason Comments Follow-up Care Teams (unrecognized sec tion and content) Vegetable Loader Relationship Specialty Start Date End Date Walter Littlejohn DO [address] [facility], [place] [address] PCP - General Family Medicine 09/17/18 Vegetable Loader Relationship Specialty Start Date End Date Day Obando, WOOD LATHE OPERATOR - [employer]AND[employer] D[employer]ER [address] [place] [address] PCP - General Family Medicine 04/10/23 Vegetable Loader Relationship Specialty Start Date End Date Day [facility]o [facility] [address] [place] [address] PCP - General Internal Medicine 06/29/23 Vegetable Loader Relationship Specialty Start Date End Date Day Obando [facility] [address] [place] [address] PCP - General Internal Medicine 06/29/23 Vegetable Loader Relationship Specialty Start Date End Date TopherMaxDay Shaw [facility] [address] [place] [address] PCP - General Internal Medicine 06/29/23 Vegetable Loader Relationship Specialty Start Date End Date TopherDay WOOD LATHE OPERATOR [facility] [address] [place] [address] PCP - General Family Medicine 04/10/23 Vegetable Loader Relationship Specialty Start Date End Date TopherMaxDay Shaw WOOD LATHE OPERATOR [facility] [address] [place] [address] PCP - General Family Medicine 04/10/23 Vegetable Loader Relationship Specialty Start Date End Date Day Obando Shaw WOOD LATHE OPERATOR [facility] [address] [place] [address] PCP - General Family Medicine 04/10/23 Vegetable Loader Relationship Specialty Start Date End Date Day Obando [facility] [address] [place] [address] PCP - General Internal Medicine 06/29/23 Vegetable Loader Relationship Specialty Start Date End Date Day Obando [facility] [address] [place] [address] PCP - General Internal Medicine 06/29/23 Vegetable Loader Relationship Specialty Start Date End Date Day Obando [facility] [address] [place] [address] PCP - General Internal Medicine 06/29/23 Vegetable Loader Relationship Specialty Start Date End Date Day Obando [facility] [address] [place] [address] PCP - General Internal Medicine 06/29/23 Ordered [...] Post-op 1602 (Given - Provider: Claudia Chaidez RN)211 (Given - Provider: Sweetie Villagomez RN) 0838 (Given - Provider: Ozzie Miranda RN)153 (Given - Provider: Ozzie Miranda RN)2099 (Due) enoxaparin (LOVENOX) injection 40 mg 40 [...] Post-op 1617 (Given - Provider: Claudia Chaidez RN)1957 (Given - Provider: Sweetie Villagomez RN) 0021 [...] Carranza RN) 0945 (Given - Provider: Lurdes Wiely, NANCY) 0837 (Given - Provider: Ozzie Miranda [...] Marshall RN)0554 (Given - Provider: Sweetie Villagomez, RN)0953 (Given - Provider: Lurdes Wiley, NANCY) glucagon injection 1 mg 1 mg, SubCUTAneous, [...] Provider: Poonam Azul RN)1055 (Given - Provider: Kenndey Carranza RN)1539 (Given - Provider: Kennedy Carranza [...] Sweetie Villagomez RN)0945 (Given - Provider: Lurdes Wiley, NANCY)1327 (Given - Provider: Lurdes Wiley, RN)1746 (Given - Provider: Lurdes Wiley, RN)2149 (Given - Provider: Sweetie Villagomez RN) [...] BE BASED ON THE PRIMARY CLINICAL RECORDS. [facility]. provides no warranty or guarantee of the accuracy or completeness of information in this document.
--- NOTE | 2024-05-06 13:23 | P.CN_ITS ---
Consult Note: HPI Data of Consult Patient: known to practice within the last 3 years Consult date: 05/06/24 Requesting Physician: Macey Monterroso MD Primary Care Provider: MAGLORZATA LITTLEJOHN Consult Narrative Reason for consult: low back, bilateral hip pain Narrative: 64yom who presents for assessment. continues to have pain throughout low back, bilateral hips. imaging reviewed, which shows multilevel moderate to advanced canal stenosis. has not had much benefit from rfa, tfesi, sij injections. uses tramadol. denies adverse med side effects. cc:: CC: Macey Monterroso MD Review of Systems ROS Status of ROS 10 or more systems reviewed and unremark able except as noted in history and below [facility] Medical History Osteoarthritis ?M19.90 - Unspecified osteoarthritis, unspecified site (ICD-10) Diabetes ?E11.9 - Type 2 diabetes mellitus without complications (ICD-10) HTN (hypertension) ?I10 - Essential (primary) hypertension (ICD-10) High cholesterol ?E78.00 - Pure hypercholesterolemia, unspecified (ICD-10) Surgical History History of arthroscopy of knee ?Z98.890 - Other specified postprocedural states (ICD-10) History of knee replacement ?Z96.659 - Presence of unspecified artificial knee joint (ICD-10) History of hernia repair ?Z98.890 - Other specified postprocedural states (ICD-10) ?Z87.19 - Personal history of other diseases of the digestive system (ICD-10) Meds Home Medications and Allergies Home Medications ?Medication ?Instructions ?Recorded ?Confirmed ?Type amlodipine 10 mg tablet 10 mg PO DAILY 12/08/22 04/29/24 History lisinopril 20 1 tab PO DAILY 12/08/22 04/29/24 History mg-hydrochlorothiazide 12.5 mg tablet lovastatin 10 mg tablet 10 mg PO DAILY 12/08/22 04/29/24 History metformin 1,000 mg tablet 1,000 mg PO BID 12/08/22 04/29/24 History potassium chloride 10 mEq 10 meq PO DAILY 12/08/22 04/29/24 History tablet,extended release (K-Tab) gabapentin 600 mg tablet 600 mg PO QID 06/15/23 04/29/24 History cholecalciferol (vitamin D3) 50 50 mcg PO DAILY 09/21/23 04/29/24 History mcg (2,000 unit) capsule (D3-2000) diclofenac sodium 100 mg 100 mg PO BID 09/21/23 04/29/24 History tablet,extended release 24 hr empagliflozin 25 mg tablet 25 mg PO DAILY 09/21/23 04/29/24 History (Jardiance) metaxalone 800 mg tablet 800 mg PO BID 09/21/23 04/29/24 History multivitamin 1 tab PO DAILY 09/21/23 04/29/24 History tramadol 50 mg tablet 50 mg PO TID PRN pain #90 tabs 02/16/24 04/29/24 Rx Allergies Allergy/AdvReac Type Severity Reaction Status Date / Time No Known Drug Allergies Allergy Verified 04/29/24 06:47 Exam Narrative Exam Narrative: Psych-alert and oriented x 3. Attentive and appropriate, constitutionally n ormal, displays normal mood and affect per situation.? There are no obvious deficits in memory, reasoning, or intellect.? Skin-no obvious rashes, bruising, erythema noted to the patient's area of pain. Extremities- extremities are warm with minimal edema and palpable pulses. Lumbar-no significant tenderness to palpation noted in the lumbar spine and paraspinal musculature.? Pain is elicited with extension, and lateral rotation of the lumbar spine. Range of motion is slightly diminished with these motions due to pain. Coordination remains intact.? Gait remains non-antalgic. Assessment and Plan Assessment and Plan (1) Lumbar stenosis with neurogenic claudication: (2) Lumbar radiculopathy: Plan 64yom who presents for assessment. failed multiple conservative measures, as noted. new mri reviewed, as noted. given persistence of symptoms, coupled with failure to respond to various interventions, will have him follow up with his surgeon for surgical evaluation. he is in agreement. meds reviewed, no changes. follow up in 3 months.
== END 2024-05-06 12:18 | disposition home or self-care (01) ==
LOC: PM 12:17
PROVIDERS: PCP Family Medicine; Visit Provider Anesthesiology
DX: M48.062 Spinal stenosis, lumbar region with neurogenic claudication (principal); M54.16 Radiculopathy, lumbar region
CPT/HCPCS: G0463

== ENCOUNTER 2024-08-01 09:35 | Outpatient (OUT) | payer OTHER, MEDICARE, SELFPAY ==
--- NOTE | 2024-08-01 10:18 | PM.CN ---
Consult Note: HPI Data of Consult Patient: known to practice within the last 3 years Requesting Physician: Nikki Hadley NP Primary Care Provider: MALGORZATA LITTLEJOHN Consult Narrative Reason for consult: f/u Narrative: Beau Lozano a 64 year old male with chronic severe low back pain secondary to lumbar stenosis and lumbar spondylosis. Pt has been engaged in provider guided HEP greater than 6 weeks in the last 6 months without improvement, has failed formal PT in the past. previously underwent cervical through T2 fusion and is not interested in lumbar surgery. has failed to benefit from tylenol, motrin, aleve, heat, and ice. currently utilizing diclofenac 75mg BID and tramadol 50mg TID PRN moderate to severe pain. historically we have ordered gabapentin 600mg QID which pt thinks he is taking however per OARRS he has only filled twice in the last year. Pain today 4/10 aching burning increasing to 10/10 with standing, walking, and activity. Pain improved with forward flexion and sitting. historically has not benefitted greater than 50% pain relief for a minimum of 3 months from lumbar ESIs, failed lumbar RFAs for facet mediated pain. Patient would like to proceed with L3-[address] Monterroso as previously discussed. cc:: CC: Nikki Hadley NP Review of Systems ROS Status of ROS 10 or more systems reviewed and unremarkable except as noted in history and below Musculoskeletal Reports: back pain and joint pain PFSH PFSH Medical History Osteoarthritis ?M19.90 - Unspecified osteoarthritis, unspecified site (ICD-10) Diabetes ?E11.9 - Type 2 diabetes mellitus without complications (ICD-10) HTN (hypertension) ?I10 - Essential (primary) hypertension (ICD-10) High cholesterol ?E78.00 - Pure hypercholesterolemia, unspecified (ICD-10) Surgical History History of arthroscopy of knee ?Z98.890 - Other specified postprocedural states (ICD-10) History of knee replacement ?Z96.659 - Presence of unspecified artificial knee joint (ICD-10) History of hernia repair ?Z98.890 - Other specified postprocedural states (ICD-10) ?Z87.19 - Personal history of other diseases of the digestive system (ICD-10) Meds Home Medications and Allergies Home Medications ?Medication ?Instructions ?Recorded ?Confirmed ?Type amlodipine 10 mg tablet 10 mg PO DAILY 12/08/22 04/29/24 History lisinopril 20 1 tab PO DAILY 12/08/22 04/29/24 History mg-hydrochlorothiazide 12.5 mg tablet lovastatin 10 mg tablet 10 mg PO DAILY 12/08/22 04/29/24 History metformin 1,000 mg tablet 1,000 mg PO BID 12/08/22 04/29/24 History potassium chloride 10 mEq 10 meq PO DAILY 12/08/22 04/29/24 History tablet,extended release (K-Tab) gabapentin 600 mg tablet 600 mg PO QID 06/15/23 04/29/24 History cholecalciferol (vitamin D3) 50 50 mcg PO DAILY 09/21/23 04/29/24 History mcg (2,000 unit) capsule (D3-2000) diclofenac sodium 100 mg 100 mg PO BID 09/21/23 04/29/24 History tablet,extended release 24 hr empagliflozin 25 mg tablet 25 mg PO DAILY 09/21/23 04/29/24 History (Jardiance) metaxalone 800 mg tablet 800 mg PO BID 09/21/23 04/29/24 History multivitamin 1 tab PO DAILY 09/21/23 04/29/24 History tramadol 50 mg tablet 50 mg PO TID PRN pain #90 tabs 02/16/24 04/29/24 Rx tramadol 50 mg tablet 50 mg PO TID PRN pain #90 tabs 05/20/24 Rx tramadol 50 mg tablet 50 mg PO TID PRN pain #90 tabs 06/18/24 Rx tramadol 50 mg tablet 50 mg PO TID PRN pain #90 tabs 07/18/24 Rx Allergies Allergy/AdvReac Type Severity Reaction Status Date / Time No Known Drug Allergies Allergy Verified 04/29/24 06:47 Exam Constitutional Documenting provider has reviewed patient's vital signs: yes Common normals: no apparent distress, oriented x3, healthy appearing, alert and well nourished General appearance: cooperative HENLA Common normals: normocephalic, hearing grossly normal bilaterally and moist oral mucous membranes Head and scalp: normocephalic Eye Common normals: PERRL Pupil: PERRL Neck & C-Spine Common normals: full ROM General: normal visual inspection Chest Common normals: inspection of chest normal Respiratory Common normals: normal respiratory effort, no retractions and no use of accessory muscles Back & Pelvis Lumbar spine/lower back: ROM limited, pain with ROM and straight leg raise negative bilaterally; no paraspinal muscle tenderness and no paraspinal muscle spasm Sacroiliac joints: SI joint(s) abnormal Other: bilateral sij positive sarahi(patricks), gaenslens, thigh thrust, compression test continues to report s/s of NC with increased pain standing/walking, improved with sitting and forward flexion Neuro Common normals: oriented x3, CN's II-XII intact bilaterally, moves all extremities, no focal motor deficits, no sensory deficits noted and deep tendon reflexes 2+ bilaterally Sensorium/orientation: alert Motor exam: strength 5/5 throughout and no movement abnormalities noted Psych Common normals: mental status grossly normal, thought process normal, cooperative, affect normal, speech normal and activity/motor behavior normal Speech: normal speech Thought process: normal thought process Results Imaging Lumbar MRI: Radiologist's impression: Alignment: Straightening of the normal lumbar lordosis with stepwise trace retrolisthesis of L2 on L3 and L3 on L4. Vertebrae: Vertebral body heights are maintained. No marrow signal abnormalities to suggest neoplasm. Conus medullaris: Conus terminates in normal position at the superior endplate of L1 Normal signal and contour. Degenerative changes: Lower thoracic spine: Moderate disc height loss and Schmorl's nodes. Small disc bulge greater at T11-T12 with moderate canal stenosis. Type III Modic changes present at T11-T12. Mild bilateral foraminal stenosis. T12-L1: No substantial canal or foraminal stenosis. L1-L2: Moderate disc height loss. Small Schmorl's node involving superior plate of L1. Minimal disc bulge. Mild canal stenosis. No substantial foraminal stenosis. L2-L3: Moderate disc height loss. Type II Modic change anteriorly. Minimal eccentric left disc bulge. Minimal canal stenosis. Mild bilateral foraminal stenosis. L3-L4: Resolution of prior extruded disc material. Slight improvement and patency of canal stenosis compared to prior. Moderate disc height loss with mixed type II and type I predominantly Modic change. Diffuse disc bulge eccentric to the left. Mild left greater than right facet arthropathy with thickening of ligamentum flavum. Moderate to advanced canal stenosis. Moderate to advanced left and moderate right foraminal stenosis. L4-L5: Moderate to advanced disc height loss with type II Modic change. Diffuse disc bulge. Mild right greater than left facet arthropathy with thickening of ligamenta flava. Moderate canal stenosis. Moderate to advanced right and moderate left foraminal stenosis. L5-S1: Mild to moderate right facet arthropathy. No substantial canal stenosis. Mild right foraminal stenosis. The left foramen is patent. Upper Sacrum: No focal lesion identified. Additional comments: Visualized portions of intra-abdominal soft tissues are unremarkable. Additional Findings Additional findings: If on a controlled substance or opioids, I have checked an [place]ARRS report on this patient and there are no aberrancies noted in the prescribing history.??If on a controlled substance or opioid a drug screen was completed and reviewed within the last year, and if there has not been a drug screen completed we ordered one today to monitor higher risk, state monitored pain medication use. As part of providing excellent, safe, comprehensive care, the following was completed at our patient's visit: 1. A medication reconciliation and review to ensure accurate knowledge of current/active medications, including asking our patients to inform us about any [id number] medications or herbal remedies/nutritional supplements/alternative remedies. 2. A review to specifically ensure our patients have had annual screening for screening for depression, screening for tobacco use, and screening for unhealthy alcohol use. For concerning screenings had a discussion with the patient, provided patient education, and recommended follow-up with primary care provider when appropriate. If patient noted with a risk of falling, they received education on strength, gait, and balance training to prevent future risk of falling. Portions of this note may have been carried over from the previous visit and updated as appropriate. Please note this office utilizes paper charting in addition to the electronic medical record. A list of current medications, vitals, and PMH is available there as the clinical staff outside of myself do not have access to [employer] charting during the clinic day operations. As part of providing quality comprehensive care the current medications, vitals, and PMH were reviewed in the paper chart. Assessment and Plan Assessment and Plan (1) Lumbar stenosis with neurogenic claudication: Assessment and Plan: LESLIE 50% moderate to severe pain with standing, walking, ADLs, pain impacting sleep, social life and travel (2) Chronic, continuous use of opioids: Assessment and Plan: I feel these medications are improving the patient's quality of life and allow them to tolerate activities of daily living as well as participate in recreational activity.? The patient does not report intolerable side effects. The patient is NOT opioid naive and non-pharmacologic and non-opioid treatment has failed to significantly relieve the patient's pain and improve functionality. The patient has a diagnosis that is related to a somatic or visceral pain etiology. ? ?? I reviewed with the patient the potential risks and side effects with the use of? opioid medications including but not limited to respiratory depression,? sedation, and even . Within the last 12 months I have verified the patient has access to naloxone should? these effects occur. The patient was advised to let? their family know they had Naloxone in case they would need to administer? the medication. I advised the patient to avoid the use of any other? sedation substances including alcohol, THC, and benzodiazepines while? taking opioid medications due to the risk of compounding side effects and? detrimental outcomes. within the last 12 months I have reviewed the [employer]OVERN[employer] EMPL[employer]EE, pain treatment agreement and urine drug screen.? ?? A drug screen was completed within the last year, and no aberrancies were noted regarding their use of controlled substances. The patient understands they are subject to the terms and conditions of the pain contract that they have signed. ? ?? I have checked an OARRS report on this patient today and there are no aberrancies noted in the prescribing history.? Plan L3-4 vertiflex under fluoroscopy with MAC sedation at [facility] with Dr Monterorso for moderate lumbar stenosis with NC increase tramadol 50mg QID PRN moderate to severe pain 120 tabs to last 30 days restart gabapentin 600mg QID as tolerated, encouraged to start with 600mg once daily working up to four times daily based on tolerance. call office if any side effects continue HEP as tolerated f/u with Dr Monterroso for further care after vertiflex
== END 2024-08-01 09:36 | disposition home or self-care (01) ==
PROVIDERS: PCP Family Medicine; Visit Provider Nurse Practitioner
DX: M48.062 Spinal stenosis, lumbar region with neurogenic claudication (principal); Z79.891 Long term (current) use of opiate analgesic
CPT/HCPCS: G0463

== ENCOUNTER 2024-09-19 13:59 | Outpatient (OUT) | payer OTHER, MEDICARE, SELFPAY ==
--- NOTE | 2024-09-19 14:37 | PM.CN ---
Consult Note: HPI Data of Consult Patient: known to practice within the last 3 years Requesting Physician: Nikki Hadley NP Primary Care Provider: MALGORZATA LITTLEJOHN Consult Narrative Reason for consult: f/u Narrative: Beau Lozano a 64 year old male with chronic severe low back pain secondary to lumbar stenosis and lumbar spondylosis. Pt has been engaged in provider guided HEP greater than 6 weeks in the last 6 months without improvement, has failed formal PT in the past. previously underwent cervical through T2 fusion and is not interested in lumbar surgery. has failed to benefit from tylenol, motrin, aleve, heat, and ice. currently utilizing diclofenac 75mg BID and tramadol 50mg QID PRN moderate to severe pain. pt reports benefit from skelxain 800mg BID PRN in the past but has not had recently. Recently evaluated by NS who recommends bilateral GT bursa injection prior to consideration of vertiflex. cc:: CC: Nikki Hadley NP Review of Systems ROS Status of ROS 10 or more systems reviewed and unremarkable except as noted in history and below Musculoskeletal Reports: back pain and joint pain PFSH PFSH Medical History Osteoarthritis ?M19.90 - Unspecified osteoarthritis, unspecified site (ICD-10) Diabetes ?E11.9 - Type 2 diabetes mellitus without complications (ICD-10) HTN (hypertension) ?I10 - Essential (primary) hypertension (ICD-10) High cholesterol ?E78.00 - Pure hypercholesterolemia, unspecified (ICD-10) Surgical History History of arthroscopy of knee ?Z98.890 - Other specified postprocedural states (ICD-10) History of knee replacement ?Z96.659 - Presence of unspecified artificial knee joint (ICD-10) History of hernia repair ?Z98.890 - Other specified postprocedural states (ICD-10) ?Z87.19 - Personal history of other diseases of the digestive system (ICD-10) Meds Home Medications and Allergies Home Medications ?Medication ?Instructions ?Recorded ?Confirmed ?Type amlodipine 10 mg tablet 10 mg PO DAILY 12/08/22 04/29/24 History lisinopril 20 1 tab PO DAILY 12/08/22 04/29/24 History mg-hydrochlorothiazide 12.5 mg tablet lovastatin 10 mg tablet 10 mg PO DAILY 12/08/22 04/29/24 History metformin 1,000 mg tablet 1,000 mg PO BID 12/08/22 04/29/24 History potassium chloride 10 mEq 10 meq PO DAILY 12/08/22 04/29/24 History tablet,extended release (K-Tab) gabapentin 600 mg tablet 600 mg PO QID 06/15/23 04/29/24 History cholecalciferol (vitamin D3) 50 50 mcg PO DAILY 09/21/23 04/29/24 History mcg (2,000 unit) capsule (D3-2000) diclofenac sodium 100 mg 100 mg PO BID 09/21/23 04/29/24 History tablet,extended release 24 hr empagliflozin 25 mg tablet 25 mg PO DAILY 09/21/23 04/29/24 History (Jardiance) metaxalone 800 mg tablet 800 mg PO BID 09/21/23 04/29/24 History multivitamin 1 tab PO DAILY 09/21/23 04/29/24 History gabapentin 600 mg tablet 600 mg PO QID #120 tabs 08/01/24 Rx tramadol 50 mg tablet 50 mg PO QID PRN pain #120 tabs 08/01/24 Rx tramadol 50 mg tablet 50 mg PO QID PRN pain #120 tabs 08/29/24 Rx Allergies Allergy/AdvReac Type Severity Reaction Status Date / Time No Known Drug Allergies Allergy Verified 04/29/24 06:47 Exam Constitutional Documenting provider has reviewed patient's vital signs: yes Common normals: no apparent distress, oriented x3, healthy appearing, alert and well nourished General appearance: cooperative [facility] Common normals: normocephalic, hearing grossly normal bilaterally and moist oral mucous membranes Head and scalp: normocephalic Eye Common normals: PERRL Pupil: PERRL Neck & C-Spine Common normals: full ROM General: normal visual inspection Chest Common normals: inspection of chest normal Respiratory Common normals: normal respiratory effort, no retractions and no use of accessory muscles Back & Pelvis Lumbar spine/lower back: ROM limited, pain with ROM and straight leg raise negative bilaterally; no paraspinal muscle tenderness and no paraspinal muscle spasm Sacroiliac joints: SI joint(s) abnormal Other: bilateral sij positive sarahi(robert, gaenslens, thigh thrust, compression test continues to report s/s of NC with increased pain standing/walking, improved with sitting and forward flexion bilateral GTB tender to touch Neuro Common normals: oriented x3, CN's II-XII intact bilaterally, moves all extremities, no focal motor deficits, no sensory deficits noted and deep tendon reflexes 2+ bilaterally Sensorium/orientation: alert Motor exam: strength 5/5 throughout and no movement abnormalities noted Psych Common normals: mental status grossly normal, thought process normal, cooperative, affect normal, speech normal and activity/motor behavior normal Speech: normal speech Thought process: normal thought process Results Imaging Lumbar MRI: Radiologist's impression: Alignment: Straightening of the normal lumbar lordosis with stepwise trace retrolisthesis of L2 on L3 and L3 on L4. Vertebrae: Vertebral body heights are maintained. No marrow signal abnormalities to suggest neoplasm. Conus medullaris: Conus terminates in normal position at the superior endplate of L1 Normal signal and contour. Degenerative changes: Lower thoracic spine: Moderate disc height loss and Schmorl's nodes. Small disc bulge greater at T11-T12 with moderate canal stenosis. Type III Modic changes present at T11-T12. Mild bilateral foraminal stenosis. T12-L1: No substantial canal or foraminal stenosis. L1-L2: Moderate disc height loss. Small Schmorl's node involving superior plate of L1. Minimal disc bulge. Mild canal stenosis. No substantial foraminal stenosis. L2-L3: Moderate disc height loss. Type II Modic change anteriorly. Minimal eccentric left disc bulge. Minimal canal stenosis. Mild bilateral foraminal stenosis. L3-L4: Resolution of prior extruded disc material. Slight improvement and patency of canal stenosis compared to prior. Moderate disc height loss with mixed type II and type I predominantly Modic change. Diffuse disc bulge eccentric to the left. Mild left greater than right facet arthropathy with thickening of ligamentum flavum. Moderate to advanced canal stenosis. Moderate to advanced left and moderate right foraminal stenosis. L4-L5: Moderate to advanced disc height loss with type II Modic change. Diffuse disc bulge. Mild right greater than left facet arthropathy with thickening of ligamenta flava. Moderate canal stenosis. Moderate to advanced right and moderate left foraminal stenosis. L5-S1: Mild to moderate right facet arthropathy. No substantial canal stenosis. Mild right foraminal stenosis. The left foramen is patent. Upper Sacrum: No focal lesion identified. Additional comments: Visualized portions of intra-abdominal soft tissues are unremarkable. Additional Findings Additional findings: If on a controlled substance or opioids, I have checked an [place] report on this patient and there are no aberrancies noted in the prescribing history.??If on a controlled substance or opioid a drug screen was completed and reviewed within the last year, and if there has not been a drug screen completed we ordered one today to monitor higher risk, state monitored pain medication use. As part of providing excellent, safe, comprehensive care, the following was completed at our patient's visit: 1. A medication reconciliation and review to ensure accurate knowledge of current/active medications, including asking our patients to inform us about any [id number] medications or herbal remedies/nutritional supplements/alternative remedies. 2. A review to specifically ensure our patients have had annual screening for screening for depression, screening for tobacco use, and screening for unhealthy alcohol use. For concerning screenings had a discussion with the patient, provided patient education, and recommended follow-up with primary care provider when appropriate. If patient noted with a risk of falling, they received education on strength, gait, and balance training to prevent future risk of falling. Portions of this note may have been carried over from the previous visit and updated as appropriate. Please note this office utilizes paper charting in addition to the electronic medical record. A list of current medications, vitals, and PMH is available there as the clinical staff outside of myself do not have access to [employer] charting during the clinic day operations. As part of providing quality comprehensive care the current medications, vitals, and PMH were reviewed in the paper chart. Assessment and Plan Assessment and Plan (1) Greater trochanteric bursitis of both hips: (2) Lumbar stenosis with neurogenic claudication: Assessment and Plan: LESLIE 50% moderate to severe pain with standing, walking, ADLs, pain impacting sleep, social life and travel (3) Chronic, continuous use of opioids: Assessment and Plan: I feel these medications are improving the patient's quality of life and allow them to tolerate activities of daily living as well as participate in recreational activity.? The patient does not report intolerable side effects. The patient is NOT opioid naive and non-pharmacologic and non-opioid treatment has failed to significantly relieve the patient's pain and improve functionality. The patient has a diagnosis that is related to a somatic or visceral pain etiology. ? ?? I reviewed with the patient the potential risks and side effects with the use of? opioid medications including but not limited to respiratory depression,? sedation, and even . Within the last 12 months I have verified the patient has access to naloxone should? these effects occur. The patient was advised to let? their family know they had Naloxone in case they would need to administer? the medication. I advised the patient to avoid the use of any other? sedation substances including alcohol, THC, and benzodiazepines while? taking opioid medications due to the risk of compounding side effects and? detrimental outcomes. within the last 12 months I have reviewed the [employer], pain treatment agreement and urine drug screen.? ?? A drug screen was completed within the last year, and no aberrancies were noted regarding their use of controlled substances. The patient understands they are subject to the terms and conditions of the pain contract that they have signed. ? ?? I have checked an OAR[place] report on this patient today and there are no aberrancies noted in the prescribing history.? Plan bilateral GTB injections with Dr Monterroso restart skelaxin 800mg BID PRN pain/spasms continue gabapentin 600mg QID continue tramadol 50mg QID PRN moderate to severe pain continue diclofenac 75mg BID PRN pain risks vs benefits reviewed request NS notes from recent consultation, we had previously ordered L3-4 vertiflex which we did not complete f/u with Dr Monterroso
== END 2024-09-19 14:00 | disposition home or self-care (01) ==
PROVIDERS: PCP Family Medicine; Visit Provider Nurse Practitioner
DX: M70.62 Trochanteric bursitis, left hip (principal); M70.61 Trochanteric bursitis, right hip; M48.062 Spinal stenosis, lumbar region with neurogenic claudication; Z79.891 Long term (current) use of opiate analgesic
CPT/HCPCS: G0463

== ENCOUNTER 2024-10-14 12:27 | Outpatient (OUT) | payer OTHER, MEDICARE, SELFPAY ==
--- NOTE | 2024-10-14 13:21 | PM.CN ---
Consult Note: HPI Data of Consult Patient: known to practice within the last 3 years Consult date: 10/14/24 Requesting Physician: Macey Monterroso MD Primary Care Provider: MALGORZATA LITTLEJOHN Consult Narrative Reason for consult: low back, bilateral hip and leg pain Narrative: 64yom who presents for assessment. continues to have pain throughout bilateral low back, bilateral hip, legs. recently evaluated by orthopedics and neurosurgery, who had differing opinions as to whether this pain was back or hip mediated. lumbar mri reviewed, consistent with moderate canal stenosis at l3-4 and l4-5. continues in a series of provider directed home exercises >6 weeks, without significant benefit. uses pain meds as needed. denies adverse med side effects. cc:: CC: Macey Monterroso MD Review of Systems ROS Status of ROS 10 or more systems reviewed and unremarkable except as noted in history and below [facility] Medical History Osteoarthritis ?M19.90 - Unspecified osteoarthritis, unspecified site (ICD-10) Diabetes ?E11.9 - Type 2 diabetes mellitus without complications (ICD-10) HTN (hypertension) ?I10 - Essential (primary) hypertension (ICD-10) High cholesterol ?E78.00 - Pure hypercholesterolemia, unspecified (ICD-10) Surgical History History of arthroscopy of knee ?Z98.890 - Other specified postprocedural states (ICD-10) History of knee replacement ?Z96.659 - Presence of unspecified artificial knee joint (ICD-10) History of hernia repair ?Z98.890 - Other specified postprocedural states (ICD-10) ?Z87.19 - Personal history of other diseases of the digestive system (ICD-10) Meds Home Medications and Allergies Home Medications ?Medication ?Instructions ?Recorded ?Confirmed ?Type amlodipine 10 mg tablet 10 mg PO DAILY 12/08/22 04/29/24 History lisinopril 20 1 tab PO DAILY 12/08/22 04/29/24 History mg-hydrochlorothiazide 12.5 mg tablet lovastatin 10 mg tablet 10 mg PO DAILY 12/08/22 04/29/24 History metformin 1,000 mg tablet 1,000 mg PO BID 12/08/22 04/29/24 History potassium chloride 10 mEq 10 meq PO DAILY 12/08/22 04/29/24 History tablet,extended release (K-Tab) gabapentin 600 mg tablet 600 mg PO QID 06/15/23 04/29/24 History cholecalciferol (vitamin D3) 50 50 mcg PO DAILY 09/21/23 04/29/24 History mcg (2,000 unit) capsule (D3-2000) diclofenac sodium 100 mg 100 mg PO BID 09/21/23 04/29/24 History tablet,extended release 24 hr empagliflozin 25 mg tablet 25 mg PO DAILY 09/21/23 04/29/24 History (Jardiance) metaxalone 800 mg tablet 800 mg PO BID 09/21/23 04/29/24 History multivitamin 1 tab PO DAILY 09/21/23 04/29/24 History gabapentin 600 mg tablet 600 mg PO QID #120 tabs 08/01/24 Rx tramadol 50 mg tablet 50 mg PO QID PRN pain #120 tabs 08/01/24 Rx tramadol 50 mg tablet 50 mg PO QID PRN pain #120 tabs 08/29/24 Rx diclofenac sodium 75 mg 75 mg PO BID PRN pain #60 tabs 09/19/24 Rx tablet,delayed release metaxalone 800 mg tablet 800 mg PO BID PRN muscle pain #60 09/19/24 Rx tabs tramadol 50 mg tablet 50 mg PO QID PRN pain #120 tabs 09/30/24 Rx Allergies Allergy/AdvReac Type Severity Reaction Status Date / Time No Known Drug Allergies Allergy Verified 04/29/24 06:47 Exam Narrative Exam Narrative: Psych-alert and oriented x 3. Attentive and appropriate, constitutionally normal, displays normal mood and affect per situation. There are no obvious deficits in memory, reasoning, or intellect.? Skin-no obvious rashes, bruising, erythema noted to the patient's area of pain.? Extremities- extremities are warm with minimal edema and palpable pulses. Lumbar-tenderness to palpation noted in the lumbar spine and paraspinal musculature. Pain is not elicited with flexion, extension, and lateral rotation of the lumbar spine. Range of motion is not diminished with these motions. Facet loading maneuvers are negative.? Strength-noted to be unremarkable with the exception of decreased strength rated at 4 out of 5 in bilateral quadriceps femoris, anterior tibialis. Sensory-no notable sensory deficits in the bilateral lower extremities to touch or pinprick in all dermatomal distributions with the exception to decreased sensation to the bilateral L3, 4, dermatomal distribution Coordination remains intact.? Gait remains non-antalgic. Assessment and Plan Assessment and Plan (1) Lumbar stenosis with neurogenic claudication: Plan 64yom who presents for assessment. failed conservative measures, as noted. imaging reviewed, as noted. given symptoms and imaging, prudent to attempt vertiflex procedure at l3-4 and l4-5, as patient has failed multiple other conservative modalities. meds reviewed, no changes. follow up after procedure.
== END 2024-10-14 12:28 | disposition home or self-care (01) ==
LOC: PM 12:27
PROVIDERS: PCP Family Medicine; Visit Provider Anesthesiology
DX: M48.062 Spinal stenosis, lumbar region with neurogenic claudication (principal)
CPT/HCPCS: G0463